=== PATIENT | male | born 1950 | race Caucasian/White ===

== ENCOUNTER 2017-11-02 13:44 | Emergency (ER) | payer MEDICARE, OTHER ==
[2017-11-02] MEDS ORDERED: NS 0.9% 1000 ML* 1,000 ML IV ONE (13:59)
--- NOTE | 2017-11-02 14:35 | RAD ---
Indication: Cough, weakness. 2 views of the chest demonstrate no mediastinal shift. Pacemaker leads are in place. Heart is of normal size. Lung rascon are clear. IMPRESSION: Pacemaker leads are in place. No active cardiopulmonary disease is noted.
--- NOTE | 2017-11-02 14:45 | RAD ---
HISTORY: Weakness, multiple falls COMPARISONS: April 09, 2015 TECHNIQUE: Multiple contiguous axial CT scans were obtained of the head without intravenous contrast. FINDINGS: HEMORRHAGE/INFARCT: There is no hemorrhage or acute infarct. MASSES/SHIFT: There is no mass or shift. EXTRA-AXIAL SPACES: There are no extra-axial fluid collections. SULCI AND VENTRICLES: The sulci and ventricles are normal in size and position for the patient's stated age. CEREBRUM: There are no focal parenchymal abnormalities. BRAINSTEM: There are no focal parenchymal abnormalities. CEREBELLUM: There are no focal parenchymal abnormalities. VESSELS: The vessels are grossly normal. PARANASAL SINUSES: The paranasal sinuses are clear. ORBITS: The orbits are unremarkable. BONES AND SOFT TISSUE: No bone or soft tissue abnormalities are noted. OTHER: None IMPRESSION: NO ACUTE INTRACRANIAL PATHOLOGY.
[2017-11-02 15:12] LABS: ABS Basophils 0 10^3/ul (0-0.2); ABS Eosinophils 0.2 10^3/ul (0-0.6); ABS Monocytes 0.5 10^3/ul (0-0.8); ABS Neutrophils 4.7 10^3/ul (1.5-7.7); ABS Nucleated RBC 0 10^3/ul; Eosinophil % 3.4 % (0-6); Hematocrit 32 % (42-52); Hemoglobin 10.5 g/dl (14.0-18.0); Lymphocyte % 16.1 % (25-47); Mean Corpuscular HGB Conc 33 g/dl (31-36); Mean Corpuscular Hemoglobin 27 pg (27-31); Mean Corpuscular Volume 82 fL (80-94); Nucleated Red Blood Cells % 0.1; Platelet Count 159 10^3/ul (150-450); Red Blood Count 3.88 10^6/ul (4.0-5.4); Red Cell Distribution Width 15 % (10.5-15); White Blood Count 6.5 10^3/ul (3.5-10.8)
[2017-11-02 15:32] LABS: EGFR Non-African American 36.9 (>60)
[2017-11-02] MEDS ORDERED: Tetan/Diph/Pertus SYR(Tdap)* 0.5 ML SYR(BOOSTRIX) use SYR IM ONE (15:52)
[2017-11-02 16:32] LABS: Urine Appearance Clear; Urine Blood Negative (Negative); Urine Color Straw; Urine Ketones Negative (Negative); Urine Protein Negative (Negative); Urine Specific Gravity 1.011 (1.010-1.030); Urine Urobilinogen Negative (Negative)
[2017-11-02 16:53] VITALS: BP 149/78
--- NOTE | 2017-11-02 17:10 | ED ---
Drew Green Tecjoon, scribed for Hank Howard MD on 11/02/17 at 1408 . Adult Trauma - HPI Summary HPI Summary: This patient is a 67 year old male BIBA to [facility] accompanied by with a chief complaint of generalized weakness and mechanical fall [employer]. Patients states that he was in the parking lot and disorganized with his walker. Patient was leaning against a car to maintain balance and went down. Patient denies pain or injury and states that he simply doesnt have a lot of strength against the wind. Patient states that he also fell 2 weeks ago and has cuts on arms and knees. Falls are not unusual to him. Patient states that his arms and legs are otherwise fine and states no injury during fall. Patient denies head trauma. The pain is rated 7/10 in severity. Symptoms aggravated by nothing. Symptoms alleviated by nothing. Patient additionally reports cough. Patient denies headache, chest pain, SOB, abd pain, nausea, dark or bloody stools. - History of Current Complaint Stated Complaint: WEAKNESS Hx Obtained From: Patient Mechanism of Injury: Fall Ambulatory at the Scene: Yes Loss of Consciousness: no loss of consciousness Patient Location: Pedestrian Restraints: None Onset/Duration: Started Hours Ago, Started Weeks Ago, Still Present Onset of Pain: Immediate Current Severity: Moderate Pain Intensity: 7 Pain Scale Used: 0-10 Numeric Aggravating Factor(s): Nothing Alleviating Factor(s): Nothing Associated Signs & Symptoms: Positive: Negative - headache, chest pain, SOB, abd pain, nausea, dark or bloody stools, Other: - cough, weakness - Additional Pertinent History Primary Care Physician: [id number] - Allergy/Home Medications Allergies/Adverse Reactions: Allergies Allergy/AdvReac Type Severity Reaction Status Date / Time lisinopril Allergy Unknown Verified 11/02/17 13:57 Reaction Details metoprolol Allergy Unknown Verified 11/02/17 13:57 Reaction Details clopidogrel AdvReac Severe Made Verified 11/02/17 13:57 opiate effect more intense Sulfa (Sulfonamide AdvReac Rash Verified 11/02/17 13:57 Antibiotics) Home Medications: Home Medications Budesonide/Formote 160/4.5(NF) [Symbicort 160/4.5 (NF)] 2 puff INH BID 11/02/17 [History Confirmed 11/02/17] Cholecalciferol (Vitamin D3) [Vitamin D3] 1,000 unit PO DAILY 11/02/17 [History Confirmed 11/02/17] Codeine Phosphate/Guaifenesin [Cheratussin AC Syrup] 10 ml PO Q4HR PRN 11/02/17 [History Confirmed 11/02/17] Insulin LISPRO* [HumaLOG*] 6 units SUBCUT TID WITH MEALS 11/02/17 [History Confirmed 11/02/17] Iron,Carbonyl [Iron Chews Pediatric] 45 mg PO .THREE TIMES WEEKLY 11/02/17 [ History Confirmed 11/02/17] Magnesium Oxide TAB* [MagOx 400 TAB*] 800 mg PO DAILY 11/02/17 [History Confirmed 11/02/17] Multivitamins/Minerals TAB* [Theragran/minerals TAB*] 1 tab PO DAILY 11/02/17 [ History Confirmed 11/02/17] Pioglitazone TAB* [Actos TAB*] 15 mg PO DAILY 11/02/17 [History Confirmed ] Pregabalin CAP(*) [Lyrica CAP(*)] 50 mg PO TID 11/02/17 [History Confirmed 11/02] Sertraline* [Zoloft*] 25 mg PO DAILY 11/02/17 [History Confirmed 11/02/17] Simvastatin TAB(NF) [Zocor 20 MG (NF)] 20 mg PO DAILY 11/02/17 [History Confirmed 11/02/17] l Gasseri/B Bifidum/B Longum [[employer] [facility]] 1 cap PO DAILY 11/02/17 [ History Confirmed 11/02/17] PMH/Surg Hx/FS Hx/Imm Hx Previously Healthy: No Endocrine/Hematology History: Reports: Hx Diabetes - TYPE 2, Hx Anemia - HX OF Denies: Hx Thyroid Disease Cardiovascular History: Reports: Hx Coronary Artery Disease, Hx Hypercholesterolemia, Hx Hypertension, Hx Pacemaker/ICD - 8/, Hx Peripheral Vascular Disease, Other Cardiovascular Problems/Disorders - BYPASS SURGERY Denies: Hx Aneurysm, Hx Angina, Hx Cardiac Arrest, Hx Cardiomegaly, Hx Congestive Heart Failure, Hx Rheumatic Fever, Hx Valvular Heart Disease Respiratory History: Reports: Hx Asthma, Hx Chronic Bronchitis, Hx Chronic Obstructive Pulmonary Disease (COPD), Hx Lung Cancer - RLL, Hx Pneumonia, Other Respiratory Problems/Disorders - COPD Denies: Hx Pulmonary Edema, Hx Pulmonary Embolism, Hx Seasonal Allergies, Hx Sleep Apnea GI History: Reports: Hx Gastroesophageal Reflux Disease - CONTROL WITH MED Denies: Hx Cirrhosis, Hx Crohn's Disease, Hx Irritable Bowel, Hx Jaundice, Hx Ulcer History: Reports: Hx Acute Renal Failure, Hx Benign Prostatic Hyperplasia, Other Problems/Disorders - CKD Denies: Hx Dialysis, Hx Renal Disease Musculoskeletal History: Reports: Hx Arthritis - RA AND OSTEOARTHRITIS, Hx Rheumatoid Arthritis, Hx Back Problems - siatica, Other Musculoskeletal History - HX SCIATICA Sensory History: Reports: Hx Cataracts, Hx Contacts or Glasses, Other Sensory Impairments - Neuropathy Denies: Hx Eye Injury, Hx Glaucoma, Hx Hearing Aid, Hx Hearing Problem Opthamlomology History: Reports: Hx Cataracts, Hx Contacts or Glasses, Other Sensory Impairments - Neuropathy Denies: Hx Eye Injury, Hx Glaucoma Neurological History: Denies: Hx Dementia, Hx Developmental Delay, Hx Headaches, Hx Migraine, Hx Nerve Disease, Hx Seizures, Hx Spinal Cord Injury, Hx Transient Ischemic Attacks (TIA), Other Neuro Impairments/Disorders Psychiatric History: Reports: Hx Depression Denies: Hx Panic Disorder - Cancer History Cancer Type, Location and Year: R Lung [address] Lindsay - dx and then not present Hx Chemotherapy: No - Surgical History Surgery Procedure, Year, and Place: CABG -5 1994, [place]. Hernia Repair, [facility]. Right foot 4th toe joint replacements,. MULTIPLE TOE AMPUTATIONS, [facility]. 2010 BILAT CATARACT, [facility]. 05/2015 Partial Amputation of Left Foot at [facility], by Dr. Arce. 06/2015 LEFT STUMP REVISION OF LEFT FOOT AMPUTATION, [facility] Hx Anesthesia Reactions: No - Immunization History Date of Tetanus Vaccine: unsure Date of Influenza Vaccine: 2011 Infectious Disease History: No Infectious Disease History: Reports: Hx of Known/Suspected MRSA Denies: Hx Clostridium Difficile, Hx Hepatitis, Hx Human Immunodeficiency Virus (HIV), Hx Shingles, Hx Tuberculosis, Hx Known/Suspected VRE, Hx Known/ Suspected VRSA, History Other Infectious Disease, Traveled Outside the [place] in Last 30 Days - Family History Known Family History: Negative: Hypertension - Social History Lives: With Family Alcohol Use: None Hx Substance Use: No Substance Use Type: Reports: None Substance Use Comment - Amount & Last Used: oxycodone Hx Tobacco Use: Yes - 1995 Smoking Status (MU): Former Smoker Type: Cigarettes Amount Used/How Often: 2 PPD Length of Time of Smoking/Using Tobacco: 20 YEARS Have You Smoked in the Last Year: No Review of Systems Negative: Fever Negative: Chest Pain Positive: Cough. Negative: Shortness Of Breath Gastrointestinal: Negative - dark or bloody stools Negative: Abdominal Pain, Nausea Positive: Other - abrasions to arms and legs Positive: Weakness. Negative: Headache All Other Systems Reviewed And Are Negative: Yes Physical Exam - Summary Physical Exam Summary: Appearance: Mild pallor Skin: Scab/lesion on sternum. Scabs and abrasions on both knee, scab/abrasion on left forearm, none of which are new. Head/face: normal Eyes: EOMI, Sparkle in his eye for cataract lens implant, Pupils are small, 3mm ENT: normal Neck: supple, non-tender Respiratory: wheezing in right lung Cardiovascular: RRR, pulses symmetrical Abdomen: non-tender, soft Bowel Sounds: present Musculoskeletal: normal, strength/ROM intact Neuro: normal, sensory motor intact, A&Ox3, Wink[place] Coma Scale: 15 Triage Information Reviewed: Yes Vital Signs On Initial Exam: Initial Vitals Temp Pulse Resp BP Pulse Ox 97.9 F 96 19 110/57 92 11/02/17 13:54 11/02/17 13:54 11/02/17 13:54 11/02/17 13:54 11/02/17 13:54 Vital Signs Reviewed: Yes Diagnostics - Vital Signs Vital Signs Temp Pulse Resp BP Pulse Ox 11/02/17 13:54 97.9 F 96 19 110/57 92 - Laboratory Lab Results: Lab Results 11/02/17 11/02/17 11/02/17 Range/Units 14:48 14:48 14:48 WBC 6.5 (3.5-10.8) 10^3/ul RBC 3.88 L (4.0-5.4) 10^6/ul Hgb 10.5 L (14.0-18.0) g/dl Hct 32 L (42-52) % MCV 82 (80-94) fL MCH 27 (27-31) pg MCHC 33 (31-36) g/dl RDW 15 (10.5-15) % Plt Count 159 (150-450) 10^3/ul MPV 7.0 L (7.4-10.4) um3 Neut % (Auto) 72.7 (38-83) % Lymph % (Auto) 16.1 L (25-47) % Gordon % (Auto) 7.1 H (0-7) % Eos % (Auto) 3.4 (0-6) % Baso % (Auto) 0.7 (0-2) % Absolute Neuts (auto) 4.7 (1.5-7.7) 10^3/ul Absolute Lymphs (auto) 1.0 (1.0-4.8) 10^3/ul Absolute Monos (auto) 0.5 (0-0.8) 10^3/ul Absolute Eos (auto) 0.2 (0-0.6) 10^3/ul Absolute Basos (auto) 0 (0-0.2) 10^3/ul Absolute Nucleated RBC 0 10^3/ul Nucleated RBC % 0.1 INR (Anticoag Therapy) 1.00 (0.77-1.02) APTT 32.4 (26.0-36.3) seconds Sodium 137 L (139-145) mmol/L Potassium 4.8 (3.5-5.0) mmol/L Chloride 100 L (101-111) mmol/L Carbon Dioxide 31 (22-32) mmol/L Anion Gap 6 (2-11) mmol/L BUN 41 H (6-24) mg/dL Creatinine 1.84 H (0.67-1.17) mg/dL Est GFR ( Amer) 47.4 (>60) Est GFR (Non-Af Amer) 36.9 (>60) BUN/Creatinine Ratio 22.3 H (8-20) Glucose 202 H (70-100) mg/dL Lactic Acid (0.5-2.0) mmol/L Calcium 9.6 (8.6-10.3) mg/dL Total Bilirubin 0.30 (0.2-1.0) mg/dL AST 13 (13-39) U/L ALT 8 (7-52) U/L Alkaline Phosphatase 53 (34-104) U/L Troponin I 0.01 (<0.04) ng/mL Total Protein 6.9 (6.4-8.9) g/dL Albumin 3.6 (3.2-5.2) g/dL Globulin 3.3 (2-4) g/dL Albumin/Globulin Ratio 1.1 (1-3) Urine Color Urine Appearance Urine pH (5-9) Ur Specific [place] (1.010-1.030) Urine Protein (Negative) Urine Ketones (Negative) Urine Blood (Negative) Urine Nitrate (Negative) Urine Bilirubin (Negative) Urine Urobilinogen (Negative) Ur Leukocyte Esterase (Negative) Urine Glucose (Negative) Influenza A (Rapid) (Negative) Influenza B (Rapid) (Negative) 11/02/17 11/02/17 11/02/17 Range/Units 14:48 15:24 16:08 WBC (3.5-10.8) 10^3/ul RBC (4.0-5.4) 10^6/ul Hgb (14.0-18.0) g/dl Hct (42-52) % MCV (80-94) fL MCH (27-31) pg MCHC (31-36) g/dl RDW (10.5-15) % Plt Count (150-450) 10^3/ul MPV (7.4-10.4) um3 Neut % (Auto) (38-83) % Lymph % (Auto) (25-47) % Gordon % (Auto) (0-7) % Eos % (Auto) (0-6) % Baso % (Auto) (0-2) % Absolute Neuts (auto) (1.5-7.7) 10^3/ul Absolute Lymphs (auto) (1.0-4.8) 10^3/ul Absolute Monos (auto) (0-0.8) 10^3/ul Absolute Eos (auto) (0-0.6) 10^3/ul Absolute Basos (auto) (0-0.2) 10^3/ul Absolute Nucleated RBC 10^3/ul Nucleated RBC % INR (Anticoag Therapy) (0.77-1.02) APTT (26.0-36.3) seconds Sodium (139-145) mmol/L Potassium (3.5-5.0) mmol/L Chloride (101-111) mmol/L Carbon Dioxide (22-32) mmol/L Anion Gap (2-11) mmol/L BUN (6-24) mg/dL Creatinine (0.67-1.17) mg/dL Est GFR ( Amer) (>60) Est GFR (Non-Af Amer) (>60) BUN/Creatinine Ratio (8-20) Glucose (70-100) mg/dL Lactic Acid 1.9 (0.5-2.0) mmol/L Calcium (8.6-10.3) mg/dL Total Bilirubin (0.2-1.0) mg/dL AST (13-39) U/L ALT (7-52) U/L Alkaline Phosphatase (34-104) U/L Troponin I (<0.04) ng/mL Total Protein (6.4-8.9) g/dL Albumin (3.2-5.2) g/dL Globulin (2-4) g/dL Albumin/Globulin Ratio (1-3) Urine Color Straw Urine Appearance Clear Urine pH 5.0 (5-9) Ur Specific [place] 1.011 (1.010-1.030) Urine Protein Negative (Negative) Urine Ketones Negative (Negative) Urine Blood Negative (Negative) Urine Nitrate Negative (Negative) Urine Bilirubin Negative (Negative) Urine Urobilinogen Negative (Negative) Ur Leukocyte Esterase Negative (Negative) Urine Glucose Negative (Negative) Influenza A (Rapid) Negative (Negative) Influenza B (Rapid) Negative (Negative) Result Diagrams: 11/02/17 14:48 11/02/17 14:48 Lab Statement: Any lab studies that have been ordered have been reviewed, and results considered in the medical decision making process. - Radiology CXR Xray Interpretation: No Acute Changes - CXR reveals, per radiologist, IMPRESSION : Pacemaker leads are in place. No active cardiopulmonary disease is noted. ED physician has reviewed this radiology report. Radiology Interpretation Completed By: Radiologist - CT CT Brain CT Interpretation: No Acute Changes - CT Brain reveals, per radiologist, NO ACUTE INTRACRANIAL PATHOLOGY. ED physician has reviewed this radiology report. CT Interpretation Completed By: Radiologist Adult Trauma Course/Dx - Course Course Of Treatment: This patient is a 67 year old male BIBA to [facility] accompanied by with a chief complaint of generalized weakness and mechanical fall [employer]. Patients states that he was in the parking lot and disorganized with his walker. Patient was leaning against a car to maintain balance and went down. An EKG, taken 1407, reveals ventricular pacing (94 BPM), left axis, nonspecific ST. CXR reveals, per radiologist, IMPRESSION: Pacemaker leads are in place. No active cardiopulmonary disease is noted. ED physician has reviewed this radiology report.CT Brain reveals, per radiologist, NO ACUTE INTRACRANIAL PATHOLOGY. ED physician has reviewed this radiology report. Bloodwork Obtained. Urinalysis Obtained. In the ED course the patient was given Tdap. Patient will be discharged with a dx of chronic renal insufficiency, generalized weakness, and fall. Patient is advised to follow up with PCP in 3 days. The patient is agreeable with this plan. Pt with gen weakness for some time. ? some worsening as of late with changes to his chronic pain/opiate regimen. No acute worsening here. Hydrated. At baseline. Chronicly unsteady. Will have f/u with pain mgmt for reeval of his regimen. - Diagnoses Differential Diagnosis/HQI/PQRI: Positive: Other - dehydration, anemia, over medication, intracranial hemorrhage Provider Diagnoses: Chronic renal insufficiency, Generalized weakness, Fall Discharge - Sign-Out/Discharge Documenting (check all that apply): Discharge - Discharge Plan Condition: Good Disposition: HOME Patient Education Materials: Weakness (ED) Referrals: Deonte Masters MD [Primary Care Provider] - Additional Instructions: discuss pain managment with Dr Low. Return if worse, new symptoms, or other concerns. Talk with your doctor about increasing the amount of PT or health aide you get. - Billing Disposition and Condition Condition: GOOD Disposition: HOME The documentation as recorded by the Drew kelly Tecjoon accurately reflects the service I personally performed and the decisions made by me, Hank Howard MD.
== END 2017-11-02 17:13 | disposition home or self-care (01) ==
LOC: ED 13:44
DX: R53.1 Weakness (principal); N28.9 Disorder of kidney and ureter, unspecified; W01.0XXA Fall on same level from slipping, tripping and stumbling without subsequent striking against object, initial encounter; Y92.9 Unspecified place or not applicable; Z88.8 Allergy status to other drugs, medicaments and biological substances; E11.9 Type 2 diabetes mellitus without complications; I25.10 Atherosclerotic heart disease of native coronary artery without angina pectoris; E78.00 Pure hypercholesterolemia, unspecified; J44.9 Chronic obstructive pulmonary disease, unspecified; J45.909 Unspecified asthma, uncomplicated; K31.9 Disease of stomach and duodenum, unspecified; Z87.891 Personal history of nicotine dependence; R94.31 Abnormal electrocardiogram [ECG] [EKG]; Z23 Encounter for immunization; D64.9 Anemia, unspecified
CPT/HCPCS: 36415; 70450; 71046; 80053; 81003; 83605; 84484; 85025; 85610; 85730; 87040; 87502; 90471; 90715; 93005; 96360; 99282

== ENCOUNTER 2019-02-28 07:39 | Emergency (ER) | payer MEDICARE, OTHER ==
--- NOTE | 2019-02-28 08:05 | ED ---
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 Per the EMS, the pt has been falling daily for the past 3 days. He states that his knees gave out and he fell. He notes that lately he has been having problems with his knees. He denies SOB more than usual with hx of COPD. Pain is currently rated 7/10 in severity. - History of Current Complaint Stated Complaint: WEAKNESS PER EMS Time Seen by Provider: 02/28/19 07:43 Hx Obtained From: Patient, EMS Mechanism of Injury: Fall Onset/Duration: Started Hours Ago, Still Present Onset Severity: Moderate Current Severity: Moderate Pain Intensity: 7 Pain Scale Used: 0-10 Numeric Aggravating Factor(s): Nothing Alleviating Factor(s): Nothing Associated Signs & Symptoms: Positive: Numbness/Weakness - Positive - weakness in knees. Negative: SOB - Additional Pertinent History Primary Care Physician: [id number] - Allergy/Home Medications Allergies/Adverse Reactions: Allergies Allergy/AdvReac Type Severity Reaction Status Date / Time lisinopril Allergy Unknown Verified 02/13/19 11:17 Reaction Details metoprolol Allergy Unknown Verified 02/13/19 11:17 Reaction Details clopidogrel AdvReac Severe Made Verified 02/13/19 11:17 opiate effect more intense Sulfa (Sulfonamide AdvReac Rash Verified 02/13/19 11:17 Antibiotics) PMH/Surg Hx/FS Hx/Imm Hx Endocrine/Hematology History: Reports: Hx Diabetes - TYPE 2, Hx Anemia - HX OF Denies: Hx Thyroid Disease Cardiovascular History: Reports: Hx Coronary Artery Disease, Hx Hypercholesterolemia, Hx Hypertension, Hx Pacemaker/ICD - 8/29/16, Hx Peripheral Vascular Disease, Other Cardiovascular Problems/Disorders - BYPASS SURGERY Denies: Hx Aneurysm, Hx Angina, Hx Cardiac Arrest, Hx Cardiomegaly, Hx Congestive Heart Failure, Hx Rheumatic Fever, Hx Valvular Heart Disease Respiratory History: Reports: Hx Asthma, Hx Chronic Bronchitis, Hx Chronic Obstructive Pulmonary Disease (COPD), Hx Lung Cancer - RLL, Hx Pneumonia, Other Respiratory Problems/Disorders - COPD Denies: Hx Pulmonary Edema, Hx Pulmonary Embolism, Hx Seasonal Allergies, Hx Sleep Apnea GI History: Reports: Hx Gastroesophageal Reflux Disease - CONTROL WITH MED Denies: Hx Cirrhosis, Hx Crohn's Disease, Hx Irritable Bowel, Hx Jaundice, Hx Ulcer History: Reports: Hx Acute Renal Failure, Hx Benign Prostatic Hyperplasia, Other Problems/Disorders - CKD Denies: Hx Dialysis, Hx Renal Disease Musculoskeletal History: Reports: Hx Arthritis - RA AND OSTEOARTHRITIS, Hx Rheumatoid Arthritis, Hx Back Problems - siatica, Other Musculoskeletal History - HX SCIATICA Sensory History: Reports: Hx Cataracts, Hx Contacts or Glasses, Other Sensory Impairments - Neuropathy Denies: Hx Eye Injury, Hx Glaucoma, Hx Hearing Aid, Hx Hearing Problem Opthamlomology History: Reports: Hx Cataracts, Hx Contacts or Glasses, Other Sensory Impairments - Neuropathy Denies: Hx Eye Injury, Hx Glaucoma Neurological History: Denies: Hx Dementia, Hx Developmental Delay, Hx Headaches, Hx Migraine, Hx Nerve Disease, Hx Seizures, Hx Spinal Cord Injury, Hx Transient Ischemic Attacks (TIA), Other Neuro Impairments/Disorders Psychiatric History: Reports: Hx Depression Denies: Hx Panic Disorder - Cancer History Cancer Type, Location and Year: R Lung [address] Lindsay - dx and then not present Hx Chemotherapy: No - Surgical History Surgery Procedure, Year, and Place: CABG -5 1994, STRONG. Hernia Repair, [facility]. Right foot 4th toe joint replacements,. MULTIPLE TOE AMPUTATIONS, [facility]. 2010 BILAT CATARACT, [facility]. 05/2015 Partial Amputation of Left Foot at [facility], by Dr. Arce. 06/2015 LEFT STUMP REVISION OF LEFT FOOT AMPUTATION, [facility] Hx Anesthesia Reactions: No - Immunization History Date of Tetanus Vaccine: unsure Date of Influenza Vaccine: 2011 Infectious Disease History: Reports: Hx of Known/Suspected MRSA Denies: Hx Clostridium Difficile, Hx Hepatitis, Hx Human Immunodeficiency Virus (HIV), Hx Shingles, Hx Tuberculosis, Hx Known/Suspected VRE, Hx Known/ Suspected VRSA, History Other Infectious Disease - Family History Known Family History: Negative: Hypertension - Social History Alcohol Use: None Hx Substance Use: No Substance Use Type: Reports: None Substance Use Comment - Amount & Last Used: oxycodone Hx Tobacco Use: Yes - 1995 Smoking Status (MU): Former Smoker Type: Cigarettes Amount Used/How Often: 2 PPD Length of Time of Smoking/Using Tobacco: 20 YEARS Have You Smoked in the Last Year: No Review of Systems Constitutional: Negative Positive: Fever Negative: Shortness Of Breath Positive: Weakness All Other Systems Reviewed And Are Negative: Yes Physical Exam - Summary Physical Exam Summary: Appearance: Chronically ill-appearing elderly male in stretcher with mild tachypnea, Well-nourished, Skin: Warm, dry, no obvious rash Eyes: sclera anicteric, no conjunctival pallor ENT: mucous membranes moist, pharynx appears normal Neck: Supple, nontender Respiratory: Crackles bilaterally, signs of mild tachypnea Cardiovascular: Normal S1, S2. No murmurs. Normal distal pulses in tibial and radial bilaterally. Abdomen: Soft, nontender, normal active bowel sounds present, mild kidney unnoted Musculoskeletal: Strength/ROM Intact, left sided trans-metatarsal amputation, no significant edema Neurological: A&Ox3, awake and alert, mentation is normal, speech is fluent and appropriate Psychiatric: affect is normal, does not appear anxious or depressed Triage Information Reviewed: Yes Vital Signs Reviewed: Yes Diagnostics - Laboratory Result Diagrams: 02/28/19 08:13 02/28/19 08:13 Lab Statement: Any lab studies that have been ordered have been reviewed, and results considered in the medical decision making process. - Radiology CXR Radiology Interpretation Completed By: Radiologist Summary of Radiographic Findings: IMPRESSION: Trace airspace opacification the right lower lung zone, in the setting of poor. inspiration, is likely direct marketing representative of subsegmental atelectasis. If there is strong. suspicion for pneumonia, repeat radiograph with better inspiration could be performed. ED Physician has reviewed this report. - EKG 0801 Cardiac Rate: Other Rate - Paced @ 79 BPM Summary of EKG Findings: Atrial-sensed ventricular-paced rhythm @ 79 BPM... ventricular pacing tracks p-waves. No further analysis attempted due to paced rhythm. Re-Evaluation - Re-Evaluation First Eval Re-Evaluation Time: 12:00 Comment: I discussed results and discharge home with the patient. 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 Per the EMS, the pt has been falling daily for the past 3 days. He states that his knees gave out and he fell. He notes that lately he has been having problems with his knees. He denies SOB more than usual with hx of COPD. The physical exam was only notable for left sided trans- metatarsal amputation and crackles bilaterally with mild tachypnea. Test results normal except for RBC @ 3.74, Hgb @ 10.1, Hct @ 31, Plt Count @ 132, absolute lumpths @ 0.9, BUN @ 51, Creatinine 1.97, BUN/Creatinine @ 25.9, Glucose @ 156. An EKG reveals atrial-sensed ventricular-paced rhythm @ 79 BPM, ventricular pacing tracks p-waves, no further analysis attempted due to paced rhythm. A CXR reveals: Trace airspace opacification the right lower lung zone, in the setting of poor inspiration, is likely direct marketing representative of subsegmental atelectasis. If there is strong suspicion for pneumonia, repeat radiograph with better inspiration could be performed. The pt was diagnosed with weakness, discharged home, and instructed to follow up with PCP within 3 days. The pt is stable and agreeable with this plan. - Diagnoses Provider Diagnoses: Weakness Discharge - Sign-Out/Discharge Documenting (check all that apply): Patient Departure - discharge Patient Received Moderate/Deep Sedation with Procedure: No - Discharge Plan Condition: Good Disposition: HOME Patient Education Materials: Weakness (ED) Referrals: Deonte Masters MD [Primary Care Provider] - If Needed Additional Instructions: RETURN TO THE EMERGENCY DEPARTMENT FOR ANY NEW OR WORSENING SYMPTOMS. - Billing Disposition and Condition Condition: GOOD Disposition: Home - Attestation Statements Document Initiated by Ashley: Yes Documenting Scribe: Babak Garcia Provider For Whom Ashley is Documenting (Include Credential): Emigdio Willett MD Scribe Attestation: Babak Green, scribed for Emigdio Willett MD on 03/02/19 at 0433. Scribe Documentation Reviewed: Yes Provider Attestation: The documentation as recorded by the davideBabak accurately reflects the service I personally performed and the decisions made by me, Emigdio Willett MD Status of Scribe Document: Viewed
[2019-02-28 08:25] LABS: ABS Eosinophils 0.2 10^3/ul (0-0.6); ABS Lymphocytes 0.9 10^3/ul (1.0-4.8); ABS Monocytes 0.4 10^3/ul (0-0.8); ABS Neutrophils 3.5 10^3/ul (1.5-7.7); Eosinophil % 3.4 %; Hematocrit 31 % (42-52); Hemoglobin 10.1 g/dL (14.0-18.0); Lymphocyte % 18.8 %; Mean Corpuscular HGB Conc 33 g/dL (31-36); Mean Corpuscular Hemoglobin 27 pg (27-31); Mean Corpuscular Volume 82 fL (80-94); Mean Platelet Volume 7.4 fL (7.4-10.4); Nucleated Red Blood Cells % 0.1; Platelet Count 132 10^3/uL (150-450); Red Blood Count 3.74 10^6 /uL (4.18-5.48); Red Cell Distribution Width 15 % (10-15)
[2019-02-28 08:42] LABS: Troponin I 0.01 ng/mL (<0.04)
[2019-02-28 08:44] LABS: Albumin 3.6 g/dL (3.2-5.2); Albumin/Globulin Ratio 1.1 (1-3); BUN/Creatinine Ratio 25.9 (8-20); Calcium 9.4 mg/dL (8.6-10.3); EGFR Non-African American 33.9 (>60); Globulin 3.2 g/dL (2-4); Potassium 4.6 mmol/L (3.5-5.0); Total Bilirubin 0.2 mg/dL (0.2-1.0); Total Protein 6.8 g/dL (6.4-8.9)
[2019-02-28 11:44] LABS: Urine Appearance Clear; Urine Bilirubin Negative (Negative); Urine Blood Negative (Negative); Urine Color Yellow; Urine Glucose Negative (Negative); Urine Ketones Negative (Negative); Urine Nitrite Negative (Negative); Urine Protein Negative (Negative); Urine Specific Gravity 1.018 (1.010-1.030); Urine Urobilinogen Negative (Negative)
[2019-02-28 12:40] VITALS: BP 170/82
== END 2019-02-28 12:40 | disposition home or self-care (01) ==
LOC: ED 07:39
DX: R53.1 Weakness (principal); Z88.2 Allergy status to sulfonamides; Z88.8 Allergy status to other drugs, medicaments and biological substances; D64.9 Anemia, unspecified; I25.10 Atherosclerotic heart disease of native coronary artery without angina pectoris; Z95.1 Presence of aortocoronary bypass graft; Z95.810 Presence of automatic (implantable) cardiac defibrillator; J44.9 Chronic obstructive pulmonary disease, unspecified; E11.22 Type 2 diabetes mellitus with diabetic chronic kidney disease; I12.9 Hypertensive chronic kidney disease with stage 1 through stage 4 chronic kidney disease, or unspecified chronic kidney disease; N18.9 Chronic kidney disease, unspecified; Z87.891 Personal history of nicotine dependence; Z79.899 Other long term (current) drug therapy
CPT/HCPCS: 36415; 71046; 80053; 81003; 83605; 83880; 84484; 85025; 93005; 99284

== ENCOUNTER 2019-02-28 16:22 | Inpatient (IN) | payer MEDICARE, OTHER ==
--- NOTE | 2019-02-28 17:34 | ED ---
Syncope/Near Syncope - HPI Summary HPI Summary: The pt is a 69 yr old male presenting to [facility] c/o syncopal episode. He was here earlier today for syncope but was brought back by EMS for a complaint of being worse than previous visit, not acting right, increased facial droop from previous visit, per the triage. The states he was not able to get out of his wheel chair, but he is able to respond and states that he feels good. notes that the patient took all of his morning and 1200 medications at 1200 , which included 20mg total of Oxycodone. He has a Hx of syncopal episodes. - History Of Current Complaint Chief Complaint: EDGeneral Time Seen by Provider: 02/28/19 16:33 Hx Obtained From: Patient, Family/Telegraph Operator, EMS Onset/Duration: Sudden Onset, Lasting Hours Timing: Intermittent Episode Lasting - undetermined period of time Associated Head Trauma: No Aggravating Factor(s): Nothing Alleviating Factor(s): Nothing Associated Signs And Symptoms: Weakness, Other - positive - LOC - Allergies/Home Medications Allergies/Adverse Reactions: Allergies Allergy/AdvReac Type Severity Reaction Status Date / Time lisinopril Allergy Unknown Verified 02/13/19 11:17 Reaction Details metoprolol Allergy Unknown Verified 02/13/19 11:17 Reaction Details clopidogrel AdvReac Severe Made Verified 02/13/19 11:17 opiate effect more intense Sulfa (Sulfonamide AdvReac Rash Verified 02/13/19 11:17 Antibiotics) Home Medications: Home Medications Minocycline (NF) 100 mg PO BID 03/01/19 [History Confirmed 03/01/19] PMH/Surg Hx/FS Hx/Imm Hx Endocrine/Hematology History: Reports: Hx Diabetes - TYPE 2, Hx Anemia - HX OF Denies: Hx Thyroid Disease Cardiovascular History: Reports: Hx Coronary Artery Disease, Hx Hypercholesterolemia, Hx Hypertension, Hx Pacemaker/ICD - 8//16, Hx Peripheral Vascular Disease, Other Cardiovascular Problems/Disorders - BYPASS SURGERY Denies: Hx Aneurysm, Hx Angina, Hx Cardiac Arrest, Hx Cardiomegaly, Hx Congestive Heart Failure, Hx Rheumatic Fever, Hx Valvular Heart Disease Respiratory History: Reports: Hx Asthma, Hx Chronic Bronchitis, Hx Chronic Obstructive Pulmonary Disease (COPD), Hx Lung Cancer - RLL, Hx Pneumonia, Other Respiratory Problems/Disorders - COPD Denies: Hx Pulmonary Edema, Hx Pulmonary Embolism, Hx Seasonal Allergies, Hx Sleep Apnea GI History: Reports: Hx Gastroesophageal Reflux Disease - CONTROL WITH MED Denies: Hx Cirrhosis, Hx Crohn's Disease, Hx Irritable Bowel, Hx Jaundice, Hx Ulcer History: Reports: Hx Acute Renal Failure, Hx Benign Prostatic Hyperplasia, Other Problems/Disorders - CKD Denies: Hx Dialysis, Hx Renal Disease Musculoskeletal History: Reports: Hx Arthritis - RA AND OSTEOARTHRITIS, Hx Rheumatoid Arthritis, Hx Back Problems - siatica, Other Musculoskeletal History - HX SCIATICA Sensory History: Reports: Hx Cataracts, Hx Contacts or Glasses, Other Sensory Impairments - Neuropathy Denies: Hx Eye Injury, Hx Glaucoma, Hx Hearing Aid, Hx Hearing Problem Opthamlomology History: Reports: Hx Cataracts, Hx Contacts or Glasses, Other Sensory Impairments - Neuropathy Denies: Hx Eye Injury, Hx Glaucoma Neurological History: Denies: Hx Dementia, Hx Developmental Delay, Hx Headaches, Hx Migraine, Hx Nerve Disease, Hx Seizures, Hx Spinal Cord Injury, Hx Transient Ischemic Attacks (TIA), Other Neuro Impairments/Disorders Psychiatric History: Reports: Hx Depression Denies: Hx Panic Disorder - Cancer History Cancer Type, Location and Year: R Lung [address] Lindsay - dx and then not present Hx Chemotherapy: No - Surgical History Surgery Procedure, Year, and Place: CABG -5 1994, STRONG. Hernia Repair, [facility]. Right foot 4th toe joint replacements,. MULTIPLE TOE AMPUTATIONS, [facility]. 2010 BILAT CATARACT, [facility]. 05/2015 Partial Amputation of Left Foot at [facility], by Dr. Arce. 06/2015 LEFT STUMP REVISION OF LEFT FOOT AMPUTATION, [facility] Hx Anesthesia Reactions: No - Immunization History Date of Tetanus Vaccine: unsure Date of Influenza Vaccine: 2011 Infectious Disease History: No Infectious Disease History: Reports: Hx of Known/Suspected MRSA Denies: Hx Clostridium Difficile, Hx Hepatitis, Hx Human Immunodeficiency Virus (HIV), Hx Shingles, Hx Tuberculosis, Hx Known/Suspected VRE, Hx Known/ Suspected VRSA, History Other Infectious Disease, Traveled Outside the [place] in Last 30 Days - Family History Known Family History: Negative: Hypertension - Social History Alcohol Use: None Hx Substance Use: No Substance Use Type: Reports: Other Substance Use Comment - Amount & Last Used: Prescribed - oxycodone Hx Tobacco Use: Yes - 1995 Smoking Status (MU): Former Smoker Type: Cigarettes Amount Used/How Often: 2 PPD Length of Time of Smoking/Using Tobacco: 20 YEARS Have You Smoked in the Last Year: No Review of Systems Positive: Other - lethargic Positive: Weakness, Syncope - with LOC All Other Systems Reviewed And Are Negative: Yes Physical Exam - Summary Physical Exam Summary: Appearance: Lethargic-appearing male who arouses to voice, Well-nourished, lying in bed comfortably Skin: Warm, dry, no obvious rash Eyes: sclera anicteric, no conjunctival pallor ENT: mucous membranes moist, pharynx appears normal Neck: Supple, nontender Respiratory: Clear to auscultation, no signs of respiratory distress Cardiovascular: Normal S1, S2. No murmurs. Normal distal pulses in tibial and radial bilaterally. Abdomen: Soft, nontender, normal active bowel sounds present Musculoskeletal: Normal, Strength/ROM Intact Neurological: A&Ox3, awake and alert, mentation is normal, speech is fluent and appropriate, GCS: 15 Psychiatric: affect is normal, does not appear anxious or depressed Triage Information Reviewed: Yes Vital Signs On Initial Exam: Initial Vitals Temp Pulse Resp BP Pulse Ox 98.1 F 65 19 107/63 97 02/28/19 16:26 02/28/19 16:26 02/28/19 16:26 02/28/19 16:26 02/28/19 16:26 Vital Signs Reviewed: Yes - Cesar Coma Scale Best Eye Response: 4 - Spontaneous Best Motor Response: 6 - Obeys Commands Best Verbal Response: 5 - Oriented Coma Scale Total: 15 Diagnostics - Vital Signs Vital Signs Temp Pulse Resp BP Pulse Ox 02/28/19 16:40 22 131/51 02/28/19 16:39 23 02/28/19 16:26 98.1 F 65 19 107/63 97 - Laboratory Result Diagrams: 03/01/19 05:20 03/01/19 05:20 Lab Statement: Any lab studies that have been ordered have been reviewed, and results considered in the medical decision making process. - CT Brain CT CT Interpretation Completed By: Radiologist Summary of CT Findings: IMPRESSION: 1. Posterior scalp contusion with an intact subjacent calvarium. 2. No acute intracranial abnormality. 3. Mild cerebral volume loss. ED Physician has reviewed this report. - EKG 1646 Cardiac Rate: Other Rate - Paced @ 135 Summary of EKG Findings: Paced rhythm @ 135. A-V dual-paced complexes w/ some inhibition... other complexes also detected. Re-Evaluation - Re-Evaluation First Eval Re-Evaluation Time: 18:00 Comment: lab results discussed. Course/Dx Course Of Treatment: The pt is a 69 yr old male presenting to [facility] c/o syncopal episode. He was here earlier today for syncope but was brought back by EMS for a complaint of being worse than previous visit, not acting right, increased facial droop from previous visit, per the triage. The states he was not able to get out of his wheel chair, but he is able to respond and states that he feels good. notes that the patient took all of his morning and 1200 medications at 1200, which included 20mg total of Oxycodone. He has a Hx of syncopal episodes. The physical exam is only notable for lethargic appearing man who does arouse to voice. Test results normal except for VBC pCO2 @ 61, VBG pO2 @ 51, VBG HCO3 @ 31.3, VBG O2 Saturation @ 86.2, VBG Base Excess @ 8.7, and Troponin @ 0.04. A brain CT reveals: 1. Posterior scalp contusion with an intact subjacent calvarium. 2. No acute intracranial abnormality. 3. Mild cerebral volume loss. An EKG reveals paced rhythm @ 135. A-V dual-paced complexes w/ some inhibition... other complexes also detected. Pt will be signed out to Dr. Siegel at the 02/28/191899 shift change pending improvement and disposition. - Diagnoses Provider Diagnoses: Lethargy, Right lower lobe pneumonia, Renal insufficiency Discharge - Sign-Out/Discharge Documenting (check all that apply): Sign-Out Patient Signing out patient TO: Debora Siegel - Pt will be signed out to Dr. Siegel at the 02/28/191899 shift change pending improvement and disposition. Patient Received Moderate/Deep Sedation with Procedure: No - Discharge Plan Condition: Fair Disposition: ADMITTED TO [facility] - Billing Disposition and Condition Condition: FAIR Disposition: Admitted to [facility] - Attestation Statements Document Initiated by Scribe: Yes Documenting Scribe: Babak Garcia Provider For Whom Scribe is Documenting (Include Credential): Brennon Beal Scribloulou Attestation: IBabak, scribed for Brennon Beal on 03/02/19 at 0443. Scribe Documentation Reviewed: Yes Provider Attestation: The documentation as recorded by the scribe, Babak Garcia accurately reflects the service I personally performed and the decisions made by me, Brennon Beal Status of Scribe Document: Viewed
[2019-02-28 18:21] LABS: Troponin I 0.04 ng/mL (<0.04)
--- NOTE | 2019-02-28 19:18 | ED ---
Progress - Progress Note Progress Note: This patient was signed out from Dr. Willett to Dr. Siegel at shift change at 1900 on 02/28/19, pending disposition, awaiting medical clearance/improvement. Pt was sedated, intubated, and given central line. The patient will be admitted with Dx of lethargy, right lower lobe pneumonia, renal insufficiency. - Results/Orders Results/Orders: CXR reveals, per ED physician, AT tube tip at level of clavicle, IJ in place. IJ tip at the distal SVC, bilateral venous congestion. Pending official radiology report. Chest/Abdomen/Pelvis CT reveals, per radiologist, IMPRESSION: 2 mm nodules in the right lung apex, stable. Follow up as clinically indicated. Increased interstitial markings in bilateral lungs slightly more prominent than prior exam. Small right perihilar density extending into the inferior right lower lobe may represent developing pneumonia in the setting of fever. No evidence of pulmonary embolism. ED physician review this radiology report. Re-Evaluation - Re-Evaluation First Eval Re-Evaluation Time: 19:33 Comment: Had conversation with , pt takes multiple pain meds, short and long acting. Physical Examination: Hypoventilation, lethargic, respiratory rate 10, pinpoint pupil consistent with narcotic overdose. Pt will be given narcan. Second Eval Re-Evaluation Time: 20:05 Comment: Checked in on pt condition. Third Eval Re-Evaluation Time: 21:41 Comment: Pt will be intubated and central line will be placed. Patient's signed the consent forms. Course/Dx - Course Course Of Treatment: This patient was signed out from Dr. Willett awaiting medical clearance/improvement. Re-evaluation reveals pt takes multiple pain meds , and Physical Examination: Hypoventilation, lethargic, respiratory rate 10, pinpoint pupil consistent with narcotic overdose. Pt will be given narcan. The pt showed no improvement. Pt was sedated, intubated, and given a central line. CXR reveals, per ED physcian AT tube tip at level of clavicle, IJ in place. IJ tip at the distal SVC, bilateral venous congestion. Pending official radiology report.Chest/Abdomen/Pelvis CT reveals, per radiologist,. IMPRESSION: 2 mm nodules in the right lung apex, stable. Follow up as clinically indicated. Increased interstitial markings in bilateral lungs slightly more prominent than prior exam. Small right perihilar density extending into the inferior right lower lobe may represent developing pneumonia in the setting of fever. No evidence of pulmonary embolism. Discussed case with Dr. Prado who accepts pt for admission. Pt will be admitted. - Diagnoses Provider Diagnoses: Lethargy, Right lower lobe pneumonia, Renal insufficiency - Provider Notifications Discussed Care Of Patient With: Nathalie Prado Time Discussed With Above Provider: 22:50 Instructed by Provider To: Other - Discussed pt case with Dr. Prado, who accepts pt for admission. Discharge - Sign-Out/Discharge Documenting (check all that apply): Patient Departure - Admit Patient Received Moderate/Deep Sedation with Procedure: No - Discharge Plan Condition: Fair Disposition: ADMITTED TO [facility] Referrals: Deonte Masters MD [Primary Care Provider] - - Attestation Statements Document Initiated by Scribe: Yes Documenting Scribe: Kena Dean Provider For Whom Scribe is Documenting (Include Credential): Dr. Debora Siegel MD Scribe Attestation: Kena Green scribed for Dr. Debora Siegel MD on 02/28/19 at 2303. Status of Scribe Document: Ready Procedures - Central Line Central Line Lumen: triple Central Line Procedure: betadine prep, sterile drapes applied, sterile dressing applied Central Line Postion: internal jugular (R) Anesthesia: pt is intubated and sedated Complications: none Central Line Post Position: sutured - Intubation Time of Intubation: 10:01 - Sedation : etomidate Intubation Method: orotracheal Tube Size (cm): 8.0 Medications: Succinylcholine Breath Sounds after Intubation: equal Intubation Complications: no complications Post Intubation Xray: Yes
[2019-02-28] MEDS ORDERED: Naloxone* 0.4 MG/ML 1 ML VIAL IV PUSH ONE ×2 (19:37→20:12)
[2019-02-28] MEDS ORDERED: NS 0.9% 1000 ML** 1,000 ML IV ONE (20:01)
[2019-02-28] MEDS ORDERED: Albuterol/Ipratropium NEB.SOL* Albuterol 2.5 MG/Ipratropium 0.5 MG 3 ML INH ONE (20:02)
[2019-02-28] MEDS ORDERED: methylPREDNISolone 125 MG* 2 ML VIAL IV ONE (20:02)
[2019-02-28] MEDS ORDERED: Albuterol 2.5 MG/3 ML NEB.SOL* (0.083%) INH ONE (20:32)
[2019-02-28] MEDS: Albuterol 2.5 MG/3 ML NEB.SOL* (0.083%) INH SCH ×2 (20:33→20:48)
[2019-02-28] MEDS ORDERED: NS 0.9% 1000 ML** 1,000 ML IV.FLUID IV ONE (20:36)
[2019-02-28] MEDS ORDERED: Acetaminophen SUPP* 325 MG SUPP PR ONE (20:37)
[2019-02-28] MEDS ORDERED: Piperacillin/Tazobac ADVAN(*) 3.375 GM in NS 0.9% 100 ML* 100 ML IVPB ONE (20:38)
[2019-02-28] MEDS ORDERED: Vancomycin(*) 1,000 MG in NS 0.9% 250 ML* 250 ML IVPB ONE (20:38)
[2019-02-28] MEDS ORDERED: Iodixanol* (CONTRAST) 320 MG/ML 100 ML SDV IV ONE (20:56)
[2019-02-28 21:00] LABS: Urine Appearance Clear; Urine Bacteria Absent (Absent); Urine Bilirubin Negative (Negative); Urine Blood 1+ (Negative); Urine Color Straw; Urine Glucose Negative (Negative); Urine Ketones Negative (Negative); Urine Nitrite Negative (Negative); Urine Protein Negative (Negative); Urine Red Blood Cell Trace(0-2/hpf) (Absent); Urine Specific Gravity 1.008 (1.010-1.030); Urine Urobilinogen Negative (Negative); Urine White Blood Cell Absent (Absent)
[2019-02-28 21:34] LABS: ABS Lymphocytes 1.7 10^3/ul (1.0-4.8); ABS Monocytes 0.9 10^3/ul (0-0.8); ABS Neutrophils 8.2 10^3/ul (1.5-7.7); Eosinophil % 0.4 %; Hematocrit 32 % (42-52); Hemoglobin 10.5 g/dL (14.0-18.0); Lymphocyte % 15.6 %; Mean Corpuscular HGB Conc 33 g/dL (31-36); Mean Corpuscular Hemoglobin 27 pg (27-31); Mean Corpuscular Volume 82 fL (80-94); Mean Platelet Volume 7.8 fL (7.4-10.4); Platelet Count 135 10^3/uL (150-450); Red Blood Count 3.92 10^6 /uL (4.18-5.48); Red Cell Distribution Width 15 % (10-15); White Blood Count 10.9 10^3/uL (3.5-10.8)
[2019-02-28 21:42] LABS: Activated Partial Thrombo Time 36.2 seconds (26.0-38.0); INR 1.12 (0.82-1.09)
[2019-02-28] MEDS ORDERED: Etomidate* 2 MG/ML 10 ML VIAL IV ONE (21:47)
[2019-02-28] MEDS ORDERED: Succinylcholine* 20 MG/ML 10 ML VIAL IV ONE (21:48)
[2019-02-28 21:52] LABS: ALT 11 U/L (7-52); AST 16 U/L (13-39); Albumin 3.6 g/dL (3.2-5.2); Albumin/Globulin Ratio 1.1 (1-3); Alkaline Phosphatase 60 U/L (34-104); Anion Gap 6 mmol/L (2-11); BUN/Creatinine Ratio 24.6 (8-20); Blood Urea Nitrogen 47 mg/dL (6-24); C Reactive Protein 64.61 mg/L (<8.01); CO2 Carbon Dioxide 32 mmol/L (22-32); Calcium 9.6 mg/dL (8.6-10.3); Chloride 103 mmol/L (101-111); EGFR African American 42.5 (>60); EGFR Non-African American 35.1 (>60); Globulin 3.4 g/dL (2-4); Glucose 206 mg/dL (70-100); Potassium 4.6 mmol/L (3.5-5.0); Sodium 141 mmol/L (135-145)
[2019-02-28 21:59] LABS: Troponin I 0.04 ng/mL (<0.04)
[2019-02-28] MEDS ORDERED: fentaNYL* 50 MCG/ML 2 ML VIAL (100 MCG VIAL) ONE ×2 (21:59→22:06)
[2019-02-28] MEDS ORDERED: Midazolam* 1 MG/ML 10 ML VIAL (10 MG) ONE (21:59)
[2019-02-28] MEDS ORDERED: fentaNYL INFUSION 50 MCG/ML* 2,500 MCG/50 ML BAG IV SCH (22:00)
[2019-02-28] MEDS ORDERED: Midazolam IV for DRIP* 100 MG in NS 0.9% 100 ML* 80 ML IV SCH (22:00)
[2019-02-28] MEDS: Midazolam* 1 MG/ML 10 ML VIAL (10 MG) IV SLOW PU ONE ×2 (22:04→22:14)
[2019-02-28] MEDS: fentaNYL* 50 MCG/ML 2 ML VIAL (100 MCG VIAL) IV SLOW PU ONE ×2 (22:04→22:37)
[2019-02-28 23:19] LABS: TSH (Thyroid Stimulating Horm) 1.25 mcIU/mL (0.34-5.60)
[2019-03-01] MEDS ORDERED: NS 0.9% 1000 ML** 1,000 ML IV SCH (00:15)
[2019-03-01] MEDS ORDERED: Dextrose 50% VIAL 50 ml IV PUSH PRN (00:20)
[2019-03-01] MEDS ORDERED: Albuterol HFA INHALER* 8 gm MDI INH PRN (00:39)
[2019-03-01] MEDS ORDERED: fentaNYL INFUSION 50 MCG/ML* 2,500 MCG/50 ML BAG IV SCH ×2 (01:00→01:32)
[2019-03-01] MEDS ORDERED: Midazolam IV for DRIP* 100 MG in NS 0.9% 100 ML* 80 ML IV SCH (01:00)
[2019-03-01] MEDS ORDERED: Zosyn per Pharmacy* NOTE FOLLOW UP SCH (01:00)
[2019-03-01] MEDS ORDERED: Pantoprazole IV* 40 MG IV SCH (01:00)
[2019-03-01] MEDS: ZOSYN 3.375 GM Q8H per EXTENDED INFUSION IVPB SCH ×6 (01:09→18:41)
[2019-03-01] MEDS: Insulin LISPRO* 1 UNITS UNIT SUBCUT SCH ×6 (01:10→20:48)
--- NOTE | 2019-03-01 03:08 | HP ---
HISTORY AND PHYSICAL: DATE OF ADMISSION: 02/28/19 PRIMARY CARE PROVIDER: Dr. Masters. CHIEF COMPLAINT: Weakness, falls, and somnolence. HISTORY OF PRESENT ILLNESS: Mr. Knox is a 69-year-old male with multiple medical conditions including coronary artery disease, type 2 diabetes complicated by peripheral neuropathy and diabetic foot ulcers requiring bilateral transmetatarsal amputations, rheumatoid arthritis that was felt to be active as of the end of January, depression, chronic pain, COPD, and history of lung cancer, who presents to the emergency room with complaints of increased falls, weakness, and somnolence. Unfortunately at this point, the patient is intubated and unable to provide any history. The patient's is left for the evening. According to nursing notes and ED provider notes, the patient developed weakness 2 hours prior to initial ER evaluation on the morning of . At that time, he reported to having at least daily falls for the past 3 days. The patient was evaluated in the ER and discharged home. He returned to the emergency room in the afternoon of 02/28/19 due to not acting right and weakness. It was also indicated this patient took all of his morning medications and afternoon medications at approximately 1300 when he got home. This did include 20 mg of oxycodone. In the ER, the patient noted to be drowsy. Several hours into his ER stay, he was noted to be lethargic but arousable after Narcan administration; however, the patient's mental status did not return to baseline. The patient received another dose of Narcan without any improvement in his mental status. The patient remained, at this point, somnolent. He was found to be making gurgling noises and unable to follow commands to cough and deep breathe. At that time, the decision was made to intubate the patient for airway protection. No further history is able to be obtained at this time. PAST MEDICAL HISTORY: 1. Coronary artery disease. 2. Type 2 diabetes. 3. Rheumatoid arthritis. 4. Depression. 5. Peripheral neuropathy. 6. History of sarcoidosis. 7. History of lung cancer. 8. Chronic pain. 9. Hyperlipidemia. 10. COPD. PAST SURGICAL HISTORY: 1. CABG. 2. Hernia repair. 3. Bilateral transmetatarsal amputations. 4. Permanent pacemaker for high-degree AV block. MEDICATIONS: 1. Minocycline 100 mg p.o. b.i.d. 2. Oxycodone 5 mg p.o. 4 times a day p.r.n. pain. 3. Oxycodone SR 10 mg p.o. b.i.d. 4. Her[facility] 1 cap p.o. daily. 5. BuSpar 10 mg p.o. twice daily p.r.n. anxiety. 6. Spiriva 1 puff inhaled daily. 7. Flomax 0.4 mg p.o. daily. 8. Simvastatin 20 mg p.o. daily. 9. Sertraline 25 mg p.o. daily. 10. Lyrica 50 mg p.o. t.i.d. 11. Pioglitazone 15 mg p.o. daily. 12. Omeprazole 20 mg p.o. daily. 13. Multivitamin 1 tab p.o. b.i.d. 14. Singulair 10 mg p.o. daily. 15. Remeron 30 mg p.o. q.h.s. 16. Magnesium oxide 800 mg p.o. daily. 17. Xopenex 2 puffs inhaled daily. 18. Lispro 6 units subcutaneous t.i.d. with meals. 19. Lantus 30 to 35 units subcutaneous q.h.s. 20. Lasix 60 mg p.o. daily. 21. Vitamin D3 1000 units p.o. daily. 22. Symbicort 160/4.5 two puffs inhaled twice daily. 23. Aspirin 81 mg p.o. daily. 24. Tylenol 650 mg p.o. q.8 hours p.r.n. pain. ALLERGIES: LISINOPRIL, METOPROLOL, PLAVIX, and SULFA. FAMILY HISTORY: Based on prior history and physicals revealed mom having a history of coronary artery disease and CHF, dad had coronary artery disease and pancreatic cancer. SOCIAL HISTORY: The patient is a former smoker quitting approximately 20 years ago. The patient is . His was present, but has since left for home. REVIEW OF SYSTEMS: Unobtainable from the patient due to him being sedated and intubated. PHYSICAL EXAMINATION GENERAL: The patient is a well-developed, middle-aged male appearing to be older than his stated age, lying in the stretcher, intubated, unresponsive due to sedation and in no acute distress. VITAL SIGNS: Blood pressure 114/49, pulse 82, respirations 15. Temp, there is no accurate temperature right now, his Morelos probe is broken. O2 saturation 100 % on 80% FiO2. HEENT: Pupils are pinpoint. Oropharynx is intubated. There is a right IJ. PULMONARY: Lungs are clear to auscultation anteriorly into the lateral bases. CARDIAC: Normal S1, S2. Regular rate and rhythm. I do not appreciate any murmurs. There is no lower extremity edema. ABDOMEN: Bowel sounds are present. Abdomen is soft, nontender, and nondistended. MUSCULOSKELETAL: At the time of my evaluation, the patient appears to still be under the effects of the succinylcholine. There is no tone in his limbs. GCS is 3T. There are bilateral transmetatarsal amputations. There are no ulcerations noted. PSYCH: Unable to be assessed. LABORATORY DATA: WBC 10.9, hemoglobin 10.5, hematocrit 32, platelets 135. INR 1.12. Sodium 141, potassium 4.6, chloride 103, CO2 32, BUN 47, creatinine 1.91, glucose 206, lactic acid 1.4, calcium 9.6. Bilirubin 0.5, AST 16, ALT 11 , alk phos 60. Troponin 0.04 x2. CRP 64.61. BNP 224. Albumin 3.6. TSH 1.25. Urinalysis reveals clear urine with specific gravity of 1.008. ABG 7.40/53/70. CT brain: Prior posterior scalp contusion with intact subjacent calvarium. No acute intracranial abnormality. There is mild cerebral volume loss. CT chest, abdomen, and pelvis: There is a 2-mm nodule in the right lung apex, which is stable. There are increased interstitial markings in the bilateral lungs slightly more prominent to the prior examination. There is a small right perihilar density extending to the inferior right lower lobe, which may represent developing pneumonia in the setting of fever. There is moderate fecal loading of the rectum with mild rectal wall thickening. There is thickening of the ascending colon and transverse colon without surrounding inflammatory changes, which may represent colitis. Small bowel was unremarkable. EKG reveals a paced rhythm. ASSESSMENT AND PLAN: Mr. Knox is a 69-year-old with a complicated past medical history including coronary artery disease, type 2 diabetes with peripheral neuropathy and history of diabetic foot ulcers ultimately prompting bilateral transmetatarsal amputation, rheumatoid arthritis, chronic obstructive pulmonary disease and chronic pain, who presents to the emergency room for the second time in 1 day with weakness and now somnolence, which ultimately required intubation for airway protection. 1. Weakness and falls. The etiology of this is not clear. The patient was seen recently by Dr. Rosenthal where it was noted that he had active rheumatoid arthritis. Perhaps, pain may be contributing to his falls. He also has peripheral neuropathy, which may be contributing to his falls. I am unable to ask the patient or his at this time whether or not he has been ambulating with shoes on as opposed to just ambulating barefoot. He will ultimately need physical therapy evaluation once he is not intubated. There could be infection leading to the weakness and falls. The patient did have a temperature at one point of 100.2 at approximately 7:46 p.m. There is a questionable right lower lobe infiltrate on CT. At this point, I am going to be starting Zosyn, which should cover likely pulmonary pathology and any potential GI pathology. 2. Somnolence. It is unclear why the patient became so somnolent in the emergency room. Somnolence has progressed during the time that he was here. He did take his long-acting oxycodone as well as what appears to be short- acting oxycodone around 1 p.m. It is possible that the combination of taking these 2 medications together may have been too much for him in terms of staying alert. He reportedly took all of his morning and noon medications. Lyrica is also on that list and could contribute to some of his somnolence. At this point , the patient was not safe breathing on his own. He was unable to follow commands and his mental status deteriorated, where he required intubation. He is now sedated with Versed and fentanyl. We will lower these medications as able to maintain a RASS of -2. 3. Type 2 diabetes. The patient typically takes 30 to 35 units of Lantus at bedtime. He did not receive this this evening. He is going to have fingersticks q.4 hours. He will be covered with the lispro sliding scale and I have ordered Lantus 10 units for bedtime on 03/01/19. These doses can be adjusted as needed. 4. Stage 3 chronic kidney disease. The patient's creatinine is elevated at 1.91. This is higher than where he has been most recently which has been in the 1.7 to 1.8 range. He typically takes Lasix 60 mg daily; this is going to be held temporarily. 5. Elevated troponin. I suspect this is secondary to demand ischemia. There were no reported complaints of chest pain documented by nursing. 6. Coronary artery disease. As above, there have been no complaints of chest pain. He will continue on aspirin 81 mg daily. 7. Chronic obstructive pulmonary disease. I did not hear any wheezing on exam. He did receive a dose of Solu-Medrol in the emergency room. I will order p.r.n. albuterol for evidence of wheezing. I am going to hold his other respiratory treatments. 8. Rheumatoid arthritis. The patient has been taking minocycline as prescribed by Dr. Rosenthal. This is being held. 9. Benign prostatic hypertrophy. The patient has a Morelos catheter in place. His Flomax is being held. 10. Hyperlipidemia. Simvastatin is currently held. 11. Depression/anxiety. The patient's Zoloft, Remeron, and BuSpar are being held. 12. DVT prophylaxis. According to the Adult Thrombosis Prophylaxis Risk Factor Assessment Guide, the patient has a total risk factor score of 5, making him the highest risk. He is being placed on heparin 5000 units subcutaneous q.8 hours. 13. Code status is full. TIME SPENT: Sixty-five minutes of critical care time was spent admitting this patient. [id number]/[facility] #: [id number] BAR
[2019-03-01 05:31] LABS: ABS Lymphocytes 0.5 10^3/ul (1.0-4.8); ABS Monocytes 0.1 10^3/ul (0-0.8); Hematocrit 29 % (42-52); Hemoglobin 9.5 g/dL (14.0-18.0); Mean Corpuscular HGB Conc 33 g/dL (31-36); Mean Corpuscular Hemoglobin 27 pg (27-31); Mean Corpuscular Volume 82 fL (80-94); Mean Platelet Volume 7.3 fL (7.4-10.4); Platelet Count 136 10^3/uL (150-450); Red Blood Count 3.56 10^6 /uL (4.18-5.48); Red Cell Distribution Width 15 % (10-15); White Blood Count 7.6 10^3/uL (3.5-10.8)
[2019-03-01] MEDS: Heparin VIAL(*) 5000 UNITS/ML VIAL (FIVE THOUSAND) SUBCUT SCH ×3 (05:36→20:47)
[2019-03-01 05:47] LABS: BUN/Creatinine Ratio 23.8 (8-20); Calcium 9.1 mg/dL (8.6-10.3); EGFR Non-African American 35.5 (>60); Potassium 4.6 mmol/L (3.5-5.0)
[2019-03-01] MEDS ORDERED: Dexmedetomidine* 1,000 MCG in NS 0.9% 250 ML* 240 ML IV SCH (09:00)
[2019-03-01] MEDS: Chlorhexidine MOUTHWASH 0.12%* 15 ML UDC TOPICAL SCH ×2 (09:41→12:19)
[2019-03-01] MEDS: Aspirin EC TAB* 81 MG TAB.EC PO SCH (09:54)
[2019-03-01] MEDS ORDERED: Furosemide IV* 10 MG/ML VIAL (40 MG) IV ONE (10:36)
[2019-03-01 11:17] LABS: Troponin I 0.12 ng/mL (<0.04)
[2019-03-01] MEDS ORDERED: Insulin NPH(*) 1 UNITS UNIT SUBCUT ONE (11:41)
--- NOTE | 2019-03-01 11:45 | CONSULT ---
Consult Consult: Consultation Note -- Critical Care Requesting Physician: Dr Nathalie Prado Reason for consult: encephalopathy, respiratory failure, intubated Limitations in history/physical: intubated/sedated Date of consult: 03/01/2019 HPI: 69y M w/pmhx of COPD on home O2 2L, CAD/CABG, s/p PPM, DM, peripheral neuropathy/diabetic foot with bilateral metatarsal amputations, RA, Depression, chronic pain, Lung Ca, CKD3; presented to ER on 02/28 for weakness which as per was ongiong for the past few weeks but he actually started to speak less past 1 day. Also noted to ahve more falls at home recently also. Has been using a wheelchair since last june 2018, sometimes uses walker. HE came to [facility] ER , evaluated but no reason found on CT brain or otherwise, so discharged home. At home he took his oxycodone and oxycontin but more than before and so was more lethargic and weaker and came to ER again. He was somnolent and given Narcan but no improvement after a second dose either. He appeared to be lethargic and a question of airway being maintained was there so he was intubated for airway protection. He is now in ICU. awakening off sedation, follows commands. afebrile, tmax 100. CXR with congestion more so, ett in place. No pressors, s/p IVF NS infusion ongoing but stopped. at bedside and history obtained. ROS: ROS unable to be obtained due to intubated state PMHx: COPD on home O2 2L, CAD/CABG, s/p PPM, DM, peripheral neuropathy/diabetic foot with bilateral metatarsal amputations, RA, Depression, chronic pain, Lung Ca, CKD3 PSHx: CABG, hernia repair, metatarsal amputations, s/p PPM Family History: CAD mother and father, pancreatic Ca in father Social History: Alcohol-none, Smoking-quit 20yrs back, Drug use-none; with Allergies: Allergies Allergy/AdvReac Type Severity Reaction Status Date / Time lisinopril Allergy Unknown Verified 02/13/19 11:17 Reaction Details metoprolol Allergy Unknown Verified 02/13/19 11:17 Reaction Details clopidogrel AdvReac Severe Made Verified 02/13/19 11:17 opiate effect more intense Sulfa (Sulfonamide AdvReac Rash Verified 02/13/19 11:17 Antibiotics) Home Medications: Acetaminophen TAB* [Tylenol TAB*] 650 mg PO Q8HR PRN 04/09/15 [History Confirmed 02/28/19] Aspirin EC TAB* [Ecotrin EC Low Dose 81 MG*] 81 mg PO DAILY #0 tab.ec 10/17/15 [ Rx Confirmed 02/28/19] Mirtazapine TAB* [Remeron TAB*] 30 mg PO BEDTIME tab 10/17/15 [Rx Confirmed ] Insulin GLARGINE(*) [Lantus(*)] 30 - 35 units SUBCUT BEDTIME 01/21/16 [History Confirmed 02/28/19] Tamsulosin CAP* [Flomax CAP*] 0.4 mg PO DAILY 03/26/16 [History Confirmed ] Tiotropium CAP.INH* [Spiriva CAP.INH*] 1 cap.inh INH DAILY 03/26/16 [History Confirmed 02/28/19] Levalbuterol HFA INHALER* [Xopenex Hfa Inhaler*] 2 puff INH DAILY 03/29/16 [ History Confirmed 02/28/19] Omeprazole CAP (NF) [Prilosec CAP* 20 MG] 20 mg PO DAILY 03/29/16 [History Confirmed 02/28/19] busPIRone TAB* [Buspar TAB*] 10 mg PO BID PRN 03/29/16 [History Confirmed ] Montelukast Sodium TAB* [Singulair TAB*] 10 mg PO DAILY 04/09/16 [History Confirmed 02/28/19] oxyCODONE TAB* [Roxycodone TAB 5 mg*] 5 mg PO QID PRN MDD 4 08/02/17 [History Confirmed 02/28/19] Budesonide/Formote 160/4.5(NF) [Symbicort 160/4.5 (NF)] 2 puff INH BID 11/02/17 [History Confirmed 02/28/19] Cholecalciferol (Vitamin D3) [Vitamin D3] 1,000 unit PO DAILY 11/02/17 [History Confirmed 02/28/19] Insulin LISPRO* [HumaLOG*] 6 units SUBCUT TID WITH MEALS 11/02/17 [History Confirmed 02/28/19] Magnesium Oxide TAB* [MagOx 400 TAB*] 800 mg PO DAILY 11/02/17 [History Confirmed 02/28/19] Multivitamins/Minerals TAB* [Theragran/minerals TAB*] 1 tab PO BID 11/02/17 [ History Confirmed 02/28/19] Pioglitazone TAB* [Actos TAB*] 15 mg PO DAILY 11/02/17 [History Confirmed ] Pregabalin CAP(*) [Lyrica CAP(*)] 50 mg PO TID 11/02/17 [History Confirmed 02/28] Sertraline* [Zoloft*] 25 mg PO DAILY 11/02/17 [History Confirmed 02/28/19] Simvastatin TAB(NF) [Zocor 20 MG (NF)] 20 mg PO DAILY 11/02/17 [History Confirmed 02/28/19] l Gasseri/B Bifidum/B Longum [[facility]] 1 cap PO DAILY 11/02/17 [ History Confirmed 02/28/19] oxyCODONE SR TAB(*) [Oxycontin 10 mg (*)] 10 mg PO BID 02/09/18 [History Confirmed 02/28/19] Furosemide TAB* [Lasix TAB*] 60 mg PO DAILY 12/20/18 [History Confirmed 02/28/19 ] Minocycline (NF) 100 mg PO BID 03/01/19 [History Confirmed 03/01/19] Tele: Vpaced Vitals: Vital Signs Temp 99.1 F 03/01/19 07:00 Pulse 60 03/01/19 07:54 Resp 14 03/01/19 11:00 BP 142/61 03/01/19 07:00 Pulse Ox 97 03/01/19 08:00 Intake & Output 02/28/19 03/01/19 03/01/19 18:59 06:59 18:59 Intake Total 3054 9 Output Total 1645 245 Balance 1409 -236 Weight 90.718 kg 127.457 kg Intake: IV Fluids 3054 NS (0.9%) 194 IV Narcotic Infusion 9 Fentanyl 9 Output: Marie 1645 245 O2/Vent: AC 50% Infusions: versed/fent off now; NS discontinued Current Medications: Albuterol (Ventolin Hfa Inhaler*) 4 puff INH Q4H PRN PRN Reason: SOB/WHEEZING Aspirin (Aspirin Ec Tab*) 81 mg PO DAILY [facility] Last Admin: 03/01/19 09:54 Dose: 81 mg Chlorhexidine Gluconate (Peridex Mouth Wash 0.12%*) 15 ml TOPICAL Q4H [facility] Last Admin: 03/01/19 09:41 Dose: 15 ml Dextrose (Dextrose 50% Vial 50 Ml*) 25 ml IV PUSH .FOR FS < 60 - SS PRN PRN Reason: FS < 60 Heparin Sodium (Porcine) (Heparin Vial(*)) 5,000 units SUBCUT Q8HR [facility] Last Admin: 03/01/19 05:36 Dose: 5,000 units Piperacillin Sod/Tazobactam (Sod 3.375 gm/ Sodium Chloride) 100 mls @ 25 mls/ hr IVPB Q8H [facility] Last Admin: 03/01/19 09:24 Dose: 25 mls/hr Insulin Glargine (Lantus(*)) 10 units SUBCUT BEDTIME [facility] Insulin Human Lispro (Humalog*) 0 units SUBCUT Q4HR [facility]; Protocol Last Admin: 03/01/19 10:17 Dose: 12 units Pantoprazole Sodium (Protonix Iv*) 40 mg IV Q24H [facility] Last Admin: 03/01/19 01:09 Dose: 40 mg Pharmacy Consult (Zosyn Per Pharmacy*) 1 note FOLLOW UP .ZOSYN PER PHARMACY [facility] Physical Exam: Constitutional: sedated, intubated; follows commands now, no distress, no diaphoresis Head: normocephalic, atraumatic Eyes: no pallor, no icterus ENT: moist mucous membranes Neck: soft, supple, no jvd, no stridor CVS: normal rate, regular, no murmur Resp: bilateral air entry, no rhales, no wheeze, no rhonchi, no acc muscle use Abdomen/GI: soft, nontender, nondistended, BS+ Ext/Msk: warm, pulses+, no edema; distal metatarsal amputations+ Skin: intact, warm Neuro: intubated, sedated but now awake and follows commands, moving all extremities Labs: Laboratory Results - last 24 hr 02/28/19 02/28/19 02/28/19 17:41 17:41 20:49 WBC RBC Hgb Hct MCV MCH MCHC RDW Plt Count MPV Neut % (Auto) Lymph % (Auto) [place] % (Auto) Eos % (Auto) Baso % (Auto) Absolute Neuts (auto) Absolute Lymphs (auto) Absolute Monos (auto) Absolute Eos (auto) Absolute Basos (auto) Absolute Nucleated RBC Nucleated RBC % INR (Anticoag Therapy) APTT Patient Temperature ABG pH ABG pH (Temp Correct) ABG pCO2 ABG pCO2 (Temp Corrct ABG pO2 ABG pO2 (Temp Correct ABG HCO3 ABG O2 Saturation ABG Base Excess VBG pH 7.38 VBG pCO2 61 H VBG pO2 51.0 H VBG HCO3 31.3 H VBG O2 Saturation 86.2 H VBG Base Excess 8.7 H Respiration Rate Ventilator Type Vent Mode FiO2 Inspiratory Time PEEP Pressure Support Pressure Control EPAP IPAP BiPAP Sodium Potassium Chloride Carbon Dioxide Anion Gap BUN Creatinine Est GFR ( Amer) Est GFR (Non-Af Amer) BUN/Creatinine Ratio Glucose POC Glucose (mg/dL) Lactic Acid Calcium Total Bilirubin AST ALT Alkaline Phosphatase Troponin I 0.04 H* C-Reactive Protein B-Natriuretic Peptide Total Protein Albumin Globulin Albumin/Globulin Ratio TSH Urine Color Straw Urine Appearance Clear Urine pH 6.0 Ur Specific [place] 1.008 L Urine Protein Negative Urine Ketones Negative Urine Blood 1+ A Urine Nitrate Negative Urine Bilirubin Negative Urine Urobilinogen Negative Ur Leukocyte Esterase Negative Urine WBC (Auto) Absent Urine RBC (Auto) Trace(0-2/hpf) Urine Bacteria Absent Hyaline Casts Present A Urine Glucose Negative 02/28/19 02/28/19 02/28/19 20:56 20:56 20:56 WBC 10.9 H RBC 3.92 L Hgb 10.5 L Hct 32 L MCV 82 MCH 27 MCHC 33 RDW 15 Plt Count 135 L MPV 7.8 Neut % (Auto) 75.2 Lymph % (Auto) 15.6 [place] % (Auto) 8.6 Eos % (Auto) 0.4 Baso % (Auto) 0.2 Absolute Neuts (auto) 8.2 H Absolute Lymphs (auto) 1.7 Absolute Monos (auto) 0.9 H Absolute Eos (auto) 0.0 Absolute Basos (auto) 0.0 Absolute Nucleated RBC 0.0 Nucleated RBC % 0.0 INR (Anticoag Therapy) 1.12 H APTT 36.2 Patient Temperature ABG pH ABG pH (Temp Correct) ABG pCO2 ABG pCO2 (Temp Corrct ABG pO2 ABG pO2 (Temp Correct ABG HCO3 ABG O2 Saturation ABG Base Excess VBG pH VBG pCO2 VBG pO2 VBG HCO3 VBG O2 Saturation VBG Base Excess Respiration Rate Ventilator Type Vent Mode FiO2 Inspiratory Time PEEP Pressure Support Pressure Control EPAP IPAP BiPAP Sodium 141 Potassium 4.6 Chloride 103 Carbon Dioxide 32 Anion Gap 6 BUN 47 H Creatinine 1.91 H Est GFR ( Amer) 42.5 Est GFR (Non-Af Amer) 35.1 BUN/Creatinine Ratio 24.6 H Glucose 206 H POC Glucose (mg/dL) Lactic Acid Calcium 9.6 Total Bilirubin 0.50 AST 16 ALT 11 Alkaline Phosphatase 60 Troponin I 0.04 H* C-Reactive Protein 64.61 H B-Natriuretic Peptide Total Protein 7.0 Albumin 3.6 Globulin 3.4 Albumin/Globulin Ratio 1.1 TSH 1.25 Urine Color Urine Appearance Urine pH Ur Specific [place] Urine Protein Urine Ketones Urine Blood Urine Nitrate Urine Bilirubin Urine Urobilinogen Ur Leukocyte Esterase Urine WBC (Auto) Urine RBC (Auto) Urine Bacteria Hyaline Casts Urine Glucose 02/28/19 02/28/19 02/28/19 20:56 20:56 21:40 WBC RBC Hgb Hct MCV MCH MCHC RDW Plt Count MPV Neut % (Auto) Lymph % (Auto) [place] % (Auto) Eos % (Auto) Baso % (Auto) Absolute Neuts (auto) Absolute Lymphs (auto) Absolute Monos (auto) Absolute Eos (auto) Absolute Basos (auto) Absolute Nucleated RBC Nucleated RBC % INR (Anticoag Therapy) APTT Patient Temperature ABG pH 7.40 ABG pH (Temp Correct) ABG pCO2 53 H ABG pCO2 (Temp Corrct ABG pO2 70 L ABG pO2 (Temp Correct ABG HCO3 29.9 ABG O2 Saturation 96.6 ABG Base Excess 6.5 H VBG pH VBG pCO2 VBG pO2 VBG HCO3 VBG O2 Saturation VBG Base Excess Respiration Rate Ventilator Type Vent Mode FiO2 Inspiratory Time PEEP Pressure Support Pressure Control EPAP IPAP BiPAP Sodium Potassium Chloride Carbon Dioxide Anion Gap BUN Creatinine Est GFR ( Amer) Est GFR (Non-Af Amer) BUN/Creatinine Ratio Glucose POC Glucose (mg/dL) Lactic Acid 1.4 Calcium Total Bilirubin AST ALT Alkaline Phosphatase Troponin I C-Reactive Protein B-Natriuretic Peptide 224 H Total Protein Albumin Globulin Albumin/Globulin Ratio TSH Urine Color Urine Appearance Urine pH Ur Specific [place] Urine Protein Urine Ketones Urine Blood Urine Nitrate Urine Bilirubin Urine Urobilinogen Ur Leukocyte Esterase Urine WBC (Auto) Urine RBC (Auto) Urine Bacteria Hyaline Casts Urine Glucose 03/01/19 03/01/19 03/01/19 00:56 01:05 05:20 WBC RBC Hgb Hct MCV MCH MCHC RDW Plt Count MPV Neut % (Auto) Lymph % (Auto) [place] % (Auto) Eos % (Auto) Baso % (Auto) Absolute Neuts (auto) Absolute Lymphs (auto) Absolute Monos (auto) Absolute Eos (auto) Absolute Basos (auto) Absolute Nucleated RBC Nucleated RBC % INR (Anticoag Therapy) APTT Patient Temperature Not Reportable ABG pH 7.37 ABG pH (Temp Correct) Not Reportable ABG pCO2 51 H ABG pCO2 (Temp Corrct Not Reportable ABG pO2 211 H ABG pO2 (Temp Correct Not Reportable ABG HCO3 27.4 ABG O2 Saturation 99.9 H ABG Base Excess 3.1 H VBG pH VBG pCO2 VBG pO2 VBG HCO3 VBG O2 Saturation VBG Base Excess Respiration Rate 15 Ventilator Type 500 Vent Mode cmv FiO2 80 Inspiratory Time Not Reportable PEEP 5 Pressure Support Not Reportable Pressure Control Not Reportable EPAP Not Reportable IPAP Not Reportable BiPAP Not Reportable Sodium 139 Potassium 4.6 Chloride 103 Carbon Dioxide 32 Anion Gap 4 BUN 45 H Creatinine 1.89 H Est GFR ( Amer) 43.0 Est GFR (Non-Af Amer) 35.5 BUN/Creatinine Ratio 23.8 H Glucose 362 H POC Glucose (mg/dL) 374 H Lactic Acid Calcium 9.1 Total Bilirubin AST ALT Alkaline Phosphatase Troponin I C-Reactive Protein B-Natriuretic Peptide Total Protein Albumin Globulin Albumin/Globulin Ratio TSH Urine Color Urine Appearance Urine pH Ur Specific [place] Urine Protein Urine Ketones Urine Blood Urine Nitrate Urine Bilirubin Urine Urobilinogen Ur Leukocyte Esterase Urine WBC (Auto) Urine RBC (Auto) Urine Bacteria Hyaline Casts Urine Glucose 03/01/19 03/01/19 03/01/19 05:20 05:22 09:43 WBC 7.6 RBC 3.56 L Hgb 9.5 L Hct 29 L MCV 82 MCH 27 MCHC 33 RDW 15 Plt Count 136 L MPV 7.3 L Neut % (Auto) 92.0 Lymph % (Auto) 6.0 [place] % (Auto) 1.8 Eos % (Auto) 0.0 Baso % (Auto) 0.2 Absolute Neuts (auto) 7.0 Absolute Lymphs (auto) 0.5 L Absolute Monos (auto) 0.1 Absolute Eos (auto) 0.0 Absolute Basos (auto) 0.0 Absolute Nucleated RBC 0.0 Nucleated RBC % 0.0 INR (Anticoag Therapy) APTT Patient Temperature ABG pH ABG pH (Temp Correct) ABG pCO2 ABG pCO2 (Temp Corrct ABG pO2 ABG pO2 (Temp Correct ABG HCO3 ABG O2 Saturation ABG Base Excess VBG pH VBG pCO2 VBG pO2 VBG HCO3 VBG O2 Saturation VBG Base Excess Respiration Rate Ventilator Type Vent Mode FiO2 Inspiratory Time PEEP Pressure Support Pressure Control EPAP IPAP BiPAP Sodium Potassium Chloride Carbon Dioxide Anion Gap BUN Creatinine Est GFR ( Amer) Est GFR (Non-Af Amer) BUN/Creatinine Ratio Glucose POC Glucose (mg/dL) 375 H 311 H Lactic Acid Calcium Total Bilirubin AST ALT Alkaline Phosphatase Troponin I C-Reactive Protein B-Natriuretic Peptide Total Protein Albumin Globulin Albumin/Globulin Ratio TSH Urine Color Urine Appearance Urine pH Ur Specific [place] Urine Protein Urine Ketones Urine Blood Urine Nitrate Urine Bilirubin Urine Urobilinogen Ur Leukocyte Esterase Urine WBC (Auto) Urine RBC (Auto) Urine Bacteria Hyaline Casts Urine Glucose Imaging: Brain CT 02/28 - post scalp contusion; no acute findings CT abd/chest 02/28 - nodules+, increased interstitial markings+, thickened asc and transverse colon Assessment: 69y M w/pmhx of COPD on home O2 2L, CAD/CABG, s/p PPM, DM, peripheral neuropathy/diabetic foot with bilateral metatarsal amputations, RA, Depression, chronic pain, Lung Ca, CKD3; presented to ER on 02/28 for weakness which as per was ongiong for the past few weeks but he actually started to speak less past 1 day. Also noted to ahve more falls at home recently also. Has been using a wheelchair since last june 2018, sometimes uses walker. HE came to [facility] [place] ER, evaluated but no reason found on CT brain or otherwise, so discharged home. At home he took his oxycodone and oxycontin but more than before and so was more lethargic and weaker and came to ER again. He was somnolent and given Narcan but no improvement after a second dose either. He appeared to be lethargic and a question of airway being maintained was there so he was intubated for airway protection. -Encephalopathy -Weakness and recurrent falls -Acute on chronic hypoxic respiratory failure, intubated 02/28 -Pulmonay Congestion CKD3 Plan: Neuro- -stopped versed/fentanyl; following commands -will hold narcotics also for now better have neuro assessement after -neuro eval for recurrent falls after extubated -Delirium prec; avoid BDZ CVS- -BP stable -Vpaced rhythm -cont asa for CAD -d/c NS; noted ocngestion on CXR; Lasix 40mg IV x1 now -start lasix 40mg po tomorrow daily -Maintain MAP>65 Resp- -intubated; on 50% fio2 -off sedation; follows commands -CXR 02/28 with congestion -IV diuretics -minimal secretions -CPAP ongoing now; plan for extubation to NC/oximask; noted on home O2 -mild hypercapnea on ABG noted but ph balanced, [facility] chronic -Wean Fio2 to keep sat>92% -Bronchodilators PRN, Aspiration prec, Pulmonary Toilet -VAP bundle ID- tmax 100. wbc 10-7. LA neg -CXR with congestion 02/28 -check sputum cultures -on zosyn (day#1) for aspiration coverage GI- -NPO; swallow eval after extubation -GI prophylaxis - ppi Renal- -CKD 3 ; K okay, no acidosis; elevated BUN -CXR with congestion -lasix 40mg iv x1 now -hold IVF for now -strict I/O, replete to keep K>4, Mg>2 -marie as indicated Heme- anemia; hg 9-10s -plt okay; on asa for cad Endo- Maintain BG<200, insulin protocol as needed; BG>300; increase lantus to 25u qhs tonight; nph 10u now x1 Musculsk- pressure ulcer prophylaxis. oob to chair after extubation as tolerated Wounds- none Nutrition- swallow eval first DVT prophylaxis: SCD GI prophylaxis: ppi Central Line: no Arterial Line: no Marie Cathetor: yes Disposition: Patient requires Critical Care/ICU for respiratory failure Patient Clinical Status: guarded, critical Code Status: full code Total Critical Care time is 50 minutes, excluding procedures/teaching Pratik Rosas MD Traffic Checker (Electronically Signed)
--- NOTE | 2019-03-01 16:35 | CONS ---
NEUROLOGY CONSULTATION: DATE OF CONSULT: 03/01/19 LOCATION: He is in the intensive care unit. REFERRING PROVIDER: Dr. Rosas. PRIMARY CARE PROVIDER: Dr. Masters. CHIEF COMPLAINT: Weakness, repeated falls. HISTORY OF PRESENT ILLNESS: Emmanuel Knox is a 69-year-old man who has had repeated falls for at least a week according to the records. He presented yesterday with somnolence requiring intubation. Today, he was able to be extubated. It was noted by his to Dr. Rosas that he took more of his pain medications when he returned home from the emergency room than he normally does. It was after that that he became unresponsive. In regards to the falls, it apparently has been going on for at least a week or two. Currently, he is still pretty somnolent and is able to provide some history, but nods off when repeatedly stimulated. He does say that when he falls it is just that his legs are too weak. He denies feeling dizzy or vertiginous. He says his arms are not weak. That is pretty much all the detail I can get out of him at this point. PAST MEDICAL HISTORY: He has extensive past medical history of type 2 diabetes , peripheral metatarsal amputations bilaterally, rheumatoid arthritis, coronary artery disease, peripheral neuropathy, sarcoidosis, history of lung cancer, COPD , hyperlipidemia, coronary artery bypass grafting, herniorrhaphy, pacemaker for AV block. MEDICATIONS: At home consist of: 1. Minocycline 100 mg p.o. b.i.d. 2. Oxycodone 5 mg p.o. q.i.d. as needed. 3. Oxycodone slow release 10 mg p.o. b.i.d. 4. BuSpar 10 mg p.o. b.i.d. 5. Flomax 0.4 mg p.o. daily. 6. Simvastatin 20 mg p.o. daily. 7. Sertraline 25 mg p.o. daily. 8. Lyrica 50 mg p.o. t.i.d. 9. Pioglitazone 15 mg p.o. daily. 10. Omeprazole 20 mg p.o. b.i.d. 11. Singulair 10 mg p.o. daily. 12. Remeron 30 mg p.o. q.h.s. 13. Insulin. 14. Lasix 60 mg p.o. daily. 15. Aspirin 81 mg p.o. daily. ALLERGIES: He is listed as having allergies to SULFA DRUGS, LISINOPRIL, PLAVIX , and METOPROLOL. REVIEW OF SYSTEMS: From the patient is unproductive because of his somnolence. PHYSICAL EXAM: He is an overweight, chronically ill-appearing gentleman, lying in his ICU bed. Temperature has been consistently about 99.1 to 99.3 by [place], blood pressure most recently 154/72, heart rate is in the 60s to 70s on the monitor. Respiratory rate is 14 and oxygen saturation is 97% with supplemental oxygen. Heart tones are distant, but I do not hear any murmurs. Neck is supple. Neurological Exam: He is somnolent, but wakes to voice. Pupils react equally from 3.5 down to about 2 mm. Funduscopic exam is difficult with small pupils, but he has silver-wiring and brief look at sharp discs. Eye movements are full. Visual rascon are full to finger counting. Facial musculature is symmetric. Facial sensation to light touch is symmetric. Tongue protrudes in the midline. It looks as though he has had an uvulopalatoplasty. Speech is soft and mildly dysarthric. Motor exam reveals normal muscle tone in the upper extremities. There may be a spastic catch in the right leg. He has prominent asterixis in the extended arms and extended wrists. He appears to have weak hip flexors bilaterally, but he is so somnolent that it is hard to get a good assessment of his strength. He has no knee reflexes or upper extremity reflexes. He has bilateral metatarsal amputations. DIAGNOSTIC STUDIES/LAB DATA: Includes a CT of the brain when he was admitted, which I reviewed the images of and looks essentially normal for age. There is a scalp contusion. There is mild cerebral atrophy. Laboratory data notable for a chemistry profile with a BUN of 45 and creatinine of 1.89, which is stable to his historical norms. Glucose this morning is 362, total calcium is normal. Liver enzymes are normal as well. Troponin is elevated today at 0.12. TSH yesterday was normal at 1.25. INR yesterday on admission was borderline elevated at 1.12. IMPRESSION AND PLAN: I am not sure as to why Mr. Knox is falling and his exam is suboptimal because of his somnolence. I am going to cast a fairly broad net in terms of laboratory studies for myopathies and peripheral neuropathies. In addition to creatine kinase, I am going to check a carnitine level which can drop in patients with chronic renal insufficiency, more extensive thyroid testing, paraneoplastic antibodies, myasthenia gravis antibodies, and an ammonia level given his asterixis. He has not had a vitamin B12 level checked in over a year and so I will check that as well. I will continue to follow on him as long as he is in the hospital and try to sort out the cause of his repeated falls. [id number]/CPS #: [id number] MTDD
[2019-03-01] MEDS: amLODIPine TAB* 5 MG PO SCH (17:32)
[2019-03-01] MEDS: Acetaminophen TAB* 325 MG PO PRN (18:42)
[2019-03-01] MEDS: Tamsulosin CAP* 0.4 MG PO SCH (18:42)
[2019-03-01 19:09] LABS: Free T4 0.86 ng/dL (0.61-1.12)
[2019-03-01 19:10] LABS: Free T3 3.1 pg/mL (2.5-3.9)
[2019-03-01] MEDS: Pregabalin CAP(*) 50 MG PO SCH (20:47)
[2019-03-01] MEDS: CMC:Minocycline (NF) 50 MG CAP PO SCH (20:48)
[2019-03-01] MEDS: Insulin GLARGINE(*) 1 UNITS UNIT SUBCUT SCH (20:49)
[2019-03-01] MEDS ORDERED: Insulin GLARGINE(*) 1 UNITS UNIT SUBCUT SCH (21:00)
[2019-03-02] MEDS: ZOSYN 3.375 GM Q8H per EXTENDED INFUSION IVPB SCH ×6 (00:52→18:09)
[2019-03-02] MEDS: Heparin VIAL(*) 5000 UNITS/ML VIAL (FIVE THOUSAND) SUBCUT SCH ×3 (05:03→21:38)
[2019-03-02 05:24] LABS: Hematocrit 30 % (42-52); Hemoglobin 9.6 g/dL (14.0-18.0); Mean Corpuscular HGB Conc 33 g/dL (31-36); Mean Corpuscular Hemoglobin 27 pg (27-31); Mean Corpuscular Volume 82 fL (80-94); Mean Platelet Volume 7.6 fL (7.4-10.4); Platelet Count 127 10^3/uL (150-450); Red Blood Count 3.58 10^6 /uL (4.18-5.48); Red Cell Distribution Width 15 % (10-15); White Blood Count 8.4 10^3/uL (3.5-10.8)
[2019-03-02 05:45] LABS: BUN/Creatinine Ratio 20.9 (8-20); Calcium 9.8 mg/dL (8.6-10.3); EGFR African American 44.9 (>60); EGFR Non-African American 37.1 (>60); Magnesium 1.9 mg/dL (1.9-2.7); Phosphorus 2.8 mg/dL (2.5-5.0)
[2019-03-02] MEDS: Insulin LISPRO* 1 UNITS UNIT SUBCUT SCH ×4 (09:12→21:36)
[2019-03-02] MEDS: Acetaminophen TAB* 325 MG PO PRN ×2 (09:23→14:07)
[2019-03-02] MEDS: CMC:Minocycline (NF) 50 MG CAP PO SCH ×2 (09:23→21:07)
[2019-03-02] MEDS: Pregabalin CAP(*) 50 MG PO SCH ×3 (09:24→21:08)
[2019-03-02] MEDS: Tamsulosin CAP* 0.4 MG PO SCH (09:24)
[2019-03-02] MEDS: Montelukast Sodium TAB* 10 MG PO SCH (09:24)
[2019-03-02] MEDS: Furosemide TAB* 40 MG PO SCH (09:24)
[2019-03-02] MEDS: amLODIPine TAB* 5 MG PO SCH (09:24)
[2019-03-02] MEDS: Aspirin EC TAB* 81 MG TAB.EC PO SCH (09:24)
[2019-03-02] MEDS: Pantoprazole TAB * 40 MG TAB PO SCH (09:25)
[2019-03-02 15:07] LABS: Mycoplasma pneumoniae IgG Ab Positive (Negative); Mycoplasma pneumoniae IgM Ab Negative (Negative)
--- NOTE | 2019-03-02 19:20 | PN ---
Subjective Date of Service: 03/02/19 Interval History: Patient seen and examined. Remains sleepy but easily aroused. Complains of pain "all over" related to his arthritis. Denies SOB, no fever or chills. No further complaints. Objective Active Medications: Acetaminophen (Tylenol Tab*) 650 mg PO Q4H PRN PRN Reason: PAIN - MILD Last Admin: 03/02/19 14:07 Dose: 650 mg Albuterol (Ventolin Hfa Inhaler*) 4 puff INH Q4H PRN PRN Reason: SOB/WHEEZING Amlodipine Besylate (Norvasc Tab*) 5 mg PO DAILY COUNT INCLUDES [facility] Last Admin: 03/02/19 09:24 Dose: 5 mg Aspirin (Aspirin Ec Tab*) 81 mg PO DAILY COUNT INCLUDES [facility] Last Admin: 03/02/19 09:24 Dose: 81 mg Dextrose (Dextrose 50% Vial 50 Ml*) 25 ml IV PUSH .FOR FS < 60 - SS PRN PRN Reason: FS < 60 Furosemide (Lasix Tab*) 40 mg PO DAILY COUNT INCLUDES [facility] Last Admin: 03/02/19 09:24 Dose: 40 mg Heparin Sodium (Porcine) (Heparin Vial(*)) 5,000 units SUBCUT Q8HR COUNT INCLUDES THE [facility] Last Admin: 03/02/19 14:02 Dose: 5,000 units Piperacillin Sod/Tazobactam (Sod 3.375 gm/ Sodium Chloride) 100 mls @ 25 mls/ hr IVPB Q8H COUNT INCLUDES [facility] Last Admin: 03/02/19 18:09 Dose: 25 mls/hr Insulin Glargine (Lantus(*)) 25 units SUBCUT BEDTIME COUNT INCLUDES THE [facility] Last Admin: 03/01/19 20:49 Dose: 25 units Insulin Human Lispro (Humalog*) 0 units SUBCUT ACHS COUNT INCLUDES THE [facility]; Protocol Last Admin: 03/02/19 18:08 Dose: 6 units Minocycline HCl (Minocycline (Nf)) 100 mg PO BID COUNT INCLUDES [facility] Last Admin: 03/02/19 09:23 Dose: 100 mg Montelukast Sodium (Singulair Tab*) 10 mg PO DAILY COUNT INCLUDES [facility] Last Admin: 03/02/19 09:24 Dose: 10 mg Oxycodone HCl (Roxycodone Tab*) 5 mg PO Q8H PRN PRN Reason: PAIN - SEVERE Pantoprazole Sodium (Protonix Tab*) 40 mg PO DAILY COUNT INCLUDES [facility] Last Admin: 03/02/19 09:25 Dose: 40 mg Pharmacy Consult (Zosyn Per Pharmacy*) 1 note FOLLOW UP .ZOSYN PER PHARMACY COUNT INCLUDES THE [facility] Pregabalin (Lyrica Cap(*)) 50 mg PO TID COUNT INCLUDES THE [facility] Last Admin: 03/02/19 14:02 Dose: 50 mg Tamsulosin HCl (Flomax Cap*) 0.4 mg PO DAILY COUNT INCLUDES [facility] Last Admin: 03/02/19 09:24 Dose: 0.4 mg Vital Signs - 8 hr 03/02/19 03/02/19 03/02/19 11:35 14:02 15:35 Temperature 97.7 F 99.4 F Pulse Rate 85 84 Respiratory 20 18 16 Rate Blood Pressure 148/65 149/65 (mmHg) O2 Sat by Pulse 100 100 Oximetry 03/02/19 16:00 Temperature Pulse Rate Respiratory 18 Rate Blood Pressure (mmHg) O2 Sat by Pulse Oximetry Oxygen Devices in Use Now: Nasal Cannula Appearance: alert, NAD Eyes: No Scleral Icterus Ears/Nose/Mouth/Throat: Mucous Membranes Moist Neck: NL Appearance and Movements; NL JVP, Trachea Midline Respiratory: Symmetrical Chest Expansion and Respiratory Effort, Clear to Auscultation Cardiovascular: NL Sounds; No Murmurs; No JVD, RRR, No Edema Abdominal: NL Sounds; No Tenderness; No Distention Extremities: No Edema Skin: No Rash or Ulcers Neurological: Alert and Oriented x 3 Nutrition: Taking PO's Result Diagrams: 03/02/19 05:06 03/02/19 05:06 Microbiology and Other Data: Microbiology 02/28/19 22:14 Aerobic Blood Culture - Preliminary Blood Venous No Growth Day 1 Anaerobic Blood Culture - Preliminary No Growth Day 1 02/28/19 20:56 Aerobic Blood Culture - Preliminary Blood Venous No Growth Day 1 Anaerobic Blood Culture - Preliminary No Growth Day 1 02/28/19 20:46 Legionella Urinary Antigen - Final Urine Negative Legionella Antigen Streptococcus pneumoniae Ag Screen - Final Negative S. pneumo Antigen 03/01/19 00:30 Nasal Screen MRSA (PCR) - Final Nasal Mrsa Not Detected Assess/Plan/Problems-Billing Assessment: This is a 69 year old male with gait dysfunction, falls, and chronic pain that presented with somnolence and what appears to be unintentional overdose of home narcotic prescriptions. - Patient Problems (1) Narcotic overdose Code(s): T40.601A - POISONING BY UNSP NARCOTICS, ACCIDENTAL, INIT SNOMED Code( s): 974539232 Comment: - Required intubation, failed narcan administration, unintentional - Extubated and downgraded from ICU - Patient normally on longacting oxycontin with shortacting scheduled and lyrica which have been held - Being covered with zosyn for aspiration pneumonitis given airway compromise at admission (2) Altered mental status Code(s): R41.82 - ALTERED MENTAL STATUS, UNSPECIFIED SNOMED Code(s): 353893689 Comment: - 2/2 above, now improved - Will start low dose oxy 5mg Q8h for pain control and so patient does not withdraw - Continue lyrica - Hold meds for sedation (3) Hypertension Code(s): I10 - ESSENTIAL (PRIMARY) HYPERTENSION SNOMED Code(s): 58054521 Comment: - Continue norvasc and lasix (4) Fall Onset Date: 04/09/15 Comment: - PT/OT evals pending - Neuro consult appreciated, pending lab studies and further recs - Likely multifactorial, e.g, PVD, neuropathy, polypharmacy, obesity, deconditioning (5) COPD (chronic obstructive pulmonary disease) Code(s): J44.9 - CHRONIC OBSTRUCTIVE PULMONARY DISEASE, UNSPECIFIED SNOMED Code(s): 71714719 Comment: - O2 NC - Nebs, inhalers PRN - Pulmonary toilet with IS (6) Type 2 diabetes mellitus Comment: - CC diet, accuchecks, lantus and lispro SS (7) Full code status Code(s): Z78.9 - OTHER SPECIFIED HEALTH STATUS SNOMED Code(s): 443889813 Status and Disposition: Inpatient, dispo pending.
[2019-03-02] MEDS ORDERED: Albuterol/Ipratropium NEB.SOL* Albuterol 2.5 MG/Ipratropium 0.5 MG 3 ML INH PRN (19:32)
[2019-03-02] MEDS: oxyCODONE TAB* 5 MG TAB PO PRN (21:08)
[2019-03-02] MEDS: Insulin GLARGINE(*) 1 UNITS UNIT SUBCUT SCH (21:37)
[2019-03-03] MEDS: ZOSYN 3.375 GM Q8H per EXTENDED INFUSION IVPB SCH ×6 (01:26→17:21)
[2019-03-03] MEDS: Heparin VIAL(*) 5000 UNITS/ML VIAL (FIVE THOUSAND) SUBCUT SCH ×3 (05:52→22:00)
[2019-03-03] MEDS: oxyCODONE TAB* 5 MG TAB PO PRN ×3 (06:04→22:00)
[2019-03-03 06:16] LABS: Hematocrit 32 % (42-52); Hemoglobin 10.3 g/dL (14.0-18.0); Mean Corpuscular HGB Conc 33 g/dL (31-36); Mean Corpuscular Hemoglobin 27 pg (27-31); Mean Corpuscular Volume 82 fL (80-94); Mean Platelet Volume 7.3 fL (7.4-10.4); Platelet Count 143 10^3/uL (150-450); Red Blood Count 3.89 10^6 /uL (4.18-5.48); Red Cell Distribution Width 15 % (10-15); White Blood Count 7.7 10^3/uL (3.5-10.8)
[2019-03-03 06:31] LABS: Calcium 9.7 mg/dL (8.6-10.3); EGFR African American 46.7 (>60); EGFR Non-African American 38.6 (>60); Magnesium 1.8 mg/dL (1.9-2.7); Phosphorus 3.3 mg/dL (2.5-5.0); Potassium 3.9 mmol/L (3.5-5.0)
[2019-03-03] MEDS: Acetaminophen TAB* 325 MG PO PRN ×3 (09:18→20:59)
[2019-03-03] MEDS: Aspirin EC TAB* 81 MG TAB.EC PO SCH (09:19)
[2019-03-03] MEDS: Insulin LISPRO* 1 UNITS UNIT SUBCUT SCH ×4 (09:19→22:01)
[2019-03-03] MEDS: Furosemide TAB* 40 MG PO SCH (09:19)
[2019-03-03] MEDS: CMC:Minocycline (NF) 50 MG CAP PO SCH ×2 (09:20→20:59)
[2019-03-03] MEDS: Tamsulosin CAP* 0.4 MG PO SCH (09:20)
[2019-03-03] MEDS: Pantoprazole TAB * 40 MG TAB PO SCH (09:20)
[2019-03-03] MEDS: amLODIPine TAB* 5 MG PO SCH (09:20)
[2019-03-03] MEDS: Montelukast Sodium TAB* 10 MG PO SCH (09:20)
[2019-03-03] MEDS: Pregabalin CAP(*) 50 MG PO SCH ×3 (09:20→21:00)
--- NOTE | 2019-03-03 16:32 | PN ---
Subjective Date of Service: 03/03/19 Interval History: Mr. Knox is feeling better today. He denies any SOB. Offers no complaints, but when asked about a headache specifically, does admit to having a headache. Unable to further describe the pain. He denies CP, SOB, N/V. is concerned about insulin dosing and if she had been giving him the correct sliding scale at home. No concerns from nursing. Family History: Unchanged from Admission Social History: Unchanged from Admission Past Medical History: Unchanged from Admission Objective Active Medications: Acetaminophen (Tylenol Tab*) 650 mg PO Q4H PRN PAIN - MILD Albuterol (Ventolin Hfa Inhaler*) 4 puff INH Q4H PRN SOB/WHEEZING Albuterol/Ipratropium (Duoneb (Albuterol 2.5 Mg/Ipratropium 0.5 Mg)) 1 neb INH Q6H PRN SOB/WHEEZING Amlodipine Besylate (Norvasc Tab*) 5 mg PO DAILY [facility] Aspirin (Aspirin Ec Tab*) 81 mg PO DAILY [facility] Dextrose (Dextrose 50% Vial 50 Ml*) 25 ml IV PUSH .FOR FS < 60 - SS PRN FS < 60 Furosemide (Lasix Tab*) 40 mg PO DAILY [facility] Heparin Sodium (Porcine) (Heparin Vial(*)) 5,000 units SUBCUT Q8HR [facility] Piperacillin Sod/Tazobactam (Sod 3.375 gm/ Sodium Chloride) 100 mls @ 25 mls/ hr IVPB Q8H [facility] Insulin Glargine (Lantus(*)) 25 units SUBCUT BEDTIME [facility] Insulin Human Lispro (Humalog*) 0 units SUBCUT ACHS [facility]; Protocol Minocycline HCl (Minocycline (Nf)) 100 mg PO BID [facility] Montelukast Sodium (Singulair Tab*) 10 mg PO DAILY [facility] Oxycodone HCl (Roxycodone Tab*) 5 mg PO Q8H PRN PAIN - SEVERE Pantoprazole Sodium (Protonix Tab*) 40 mg PO DAILY [facility] Pregabalin (Lyrica Cap(*)) 50 mg PO TID [facility] Tamsulosin HCl (Flomax Cap*) 0.4 mg PO DAILY [facility] Vital Signs - 8 hr 03/03/19 03/03/19 03/03/19 09:20 11:20 11:58 Temperature 97.8 F Pulse Rate 88 Respiratory 17 18 16 Rate Blood Pressure 132/64 (mmHg) O2 Sat by Pulse 99 Oximetry 03/03/19 03/03/19 03/03/19 14:13 14:14 15:16 Temperature 97.6 F Pulse Rate 83 Respiratory 17 17 17 Rate Blood Pressure 142/60 (mmHg) O2 Sat by Pulse 100 Oximetry Oxygen Devices in Use Now: Nasal Cannula - 2L Appearance: Elderly male sitting in bed in NAD Eyes: No Scleral Icterus Ears/Nose/Mouth/Throat: Mucous Membranes Moist Neck: NL Appearance and Movements; NL JVP, Trachea Midline Respiratory: Symmetrical Chest Expansion and Respiratory Effort, - - Scattered rhonchi throughout Cardiovascular: NL Sounds; No Murmurs; No JVD, RRR Abdominal: NL Sounds; No Tenderness; No Distention Neurological: Alert and Oriented x 3 Lines/Tubes/Other Access: Clean, Dry and Intact Peripheral IV Nutrition: Taking PO's Result Diagrams: 03/03/19 06:00 03/03/19 06:00 Assess/Plan/Problems-Billing Assessment: Mr. Knox is a 69 yo M with PMH of gait dysfunction, falls, DM, and chronic pain, that presented with somnolence and what appears to be unintentional overdose of home narcotic prescriptions, requiring intubation. - Patient Problems (1) Narcotic overdose Code(s): T40.601A - POISONING BY UNSP NARCOTICS, ACCIDENTAL, INIT Comment: - Unintentional - Failed Narcan administration and required intubation - Extubated 03/01 and downgraded from ICU - Patient normally on Oxycontin, oxycodone, Lyrica - Possible aspiration pneumonitis d/t airway compromise - Continue Zosyn (2) Altered mental status Code(s): R41.82 - ALTERED MENTAL STATUS, UNSPECIFIED Comment: - Now improved - Hold pain medications for sedation (3) Fall Comment: - Likely multifactorial: PVD, neuropathy, polypharmacy, obesity, deconditioning - Appreciate Neuro consult; workup pending - PT/OT evals pending (4) Chronic pain Code(s): G89.29 - OTHER CHRONIC PAIN Comment: - Hold Oxycontin - Continue oxycodone (decreased from home dose), Lyrica (5) COPD (chronic obstructive pulmonary disease) Code(s): J44.9 - CHRONIC OBSTRUCTIVE PULMONARY DISEASE, UNSPECIFIED Comment: - O2 NC - Pulmonary toileting - Continue albuterol; resume Spiriva (6) Type 2 diabetes mellitus Comment: - Poor control, BG 200s - Continue Lantus, Lispro SS (7) Hypertension Code(s): I10 - ESSENTIAL (PRIMARY) HYPERTENSION Comment: - Normotensive, SBP 130-140s - Continue amlodipine, furosemide (8) Anxiety and depression Code(s): F41.9 - ANXIETY DISORDER, UNSPECIFIED; F32.9 - MAJOR DEPRESSIVE DISORDER, SINGLE EPISODE, UNSPECIFIED Comment: - Continue sertraline; resume mirtazapine, buspirone (9) Hyperlipidemia Code(s): E78.5 - HYPERLIPIDEMIA, UNSPECIFIED Comment: - Resume simvastatin (10) GERD (gastroesophageal reflux disease) Code(s): K21.9 - GASTRO-ESOPHAGEAL REFLUX DISEASE WITHOUT ESOPHAGITIS Comment : - Continue pantoprazole (11) BPH (benign prostatic hypertrophy) Code(s): N40.0 - BENIGN PROSTATIC HYPERPLASIA WITHOUT LOWER URINRY TRACT SYMP Comment: - Continue tamsulosin (12) DVT prophylaxis Comment: - Heparin SQ (13) Full code status Code(s): Z78.9 - OTHER SPECIFIED HEALTH STATUS Comment: Status and Disposition: Inpatient. Anticipate d/c home vs [facility] when medically stable. Attending: Harmony Montero
[2019-03-03] MEDS ORDERED: busPIRone TAB* 10 MG PO PRN (16:42)
[2019-03-03] MEDS: Mometasone/Formoter 200/5 MDI INH SCH (20:30)
[2019-03-03] MEDS: Mirtazapine TAB* 15 MG PO SCH (21:00)
[2019-03-03] MEDS: Multivitamins/Minerals TAB PO SCH (21:00)
[2019-03-03] MEDS: Insulin GLARGINE(*) 1 UNITS UNIT SUBCUT SCH (22:00)
[2019-03-04] MEDS: ZOSYN 3.375 GM Q8H per EXTENDED INFUSION IVPB SCH ×6 (01:50→16:49)
[2019-03-04] MEDS: Heparin VIAL(*) 5000 UNITS/ML VIAL (FIVE THOUSAND) SUBCUT SCH ×3 (05:40→21:16)
[2019-03-04] MEDS: oxyCODONE TAB* 5 MG TAB PO PRN ×2 (05:40→15:00)
[2019-03-04 06:02] LABS: Hematocrit 34 % (42-52); Hemoglobin 11.1 g/dL (14.0-18.0); Mean Corpuscular HGB Conc 32 g/dL (31-36); Mean Corpuscular Hemoglobin 26 pg (27-31); Mean Corpuscular Volume 82 fL (80-94); Mean Platelet Volume 7.1 fL (7.4-10.4); Platelet Count 153 10^3/uL (150-450); Red Blood Count 4.22 10^6 /uL (4.18-5.48); Red Cell Distribution Width 15 % (10-15); White Blood Count 7.3 10^3/uL (3.5-10.8)
[2019-03-04 06:19] LABS: BUN/Creatinine Ratio 16.5 (8-20); Calcium 9.3 mg/dL (8.6-10.3); EGFR African American 46.7 (>60); EGFR Non-African American 38.6 (>60); Magnesium 1.7 mg/dL (1.9-2.7); Phosphorus 4.1 mg/dL (2.5-5.0)
[2019-03-04] MEDS: Tiotropium CAPSULE (NF) 1 CAP/18 MCG CAP.INH INH SCH (07:02)
[2019-03-04] MEDS: Mometasone/Formoter 200/5 MDI INH SCH ×2 (07:02→20:30)
[2019-03-04] MEDS: amLODIPine TAB* 5 MG PO SCH (08:26)
[2019-03-04] MEDS: Multivitamins/Minerals TAB PO SCH ×2 (08:26→21:15)
[2019-03-04] MEDS: Pregabalin CAP(*) 50 MG PO SCH ×3 (08:26→21:15)
[2019-03-04] MEDS: Tamsulosin CAP* 0.4 MG PO SCH (08:26)
[2019-03-04] MEDS: Acetaminophen TAB* 325 MG PO PRN ×2 (08:26→17:18)
[2019-03-04] MEDS: Montelukast Sodium TAB* 10 MG PO SCH (08:27)
[2019-03-04] MEDS: Aspirin EC TAB* 81 MG TAB.EC PO SCH (08:27)
[2019-03-04] MEDS: Atorvastatin* 10 MG TAB PO SCH (08:27)
[2019-03-04] MEDS: Insulin LISPRO* 1 UNITS UNIT SUBCUT SCH ×4 (08:27→21:14)
[2019-03-04] MEDS: Sertraline* 25 MG TAB PO SCH (08:27)
[2019-03-04] MEDS: Pantoprazole TAB * 40 MG TAB PO SCH (08:27)
[2019-03-04] MEDS: Furosemide TAB* 40 MG PO SCH (08:27)
[2019-03-04] MEDS: CMC:Minocycline (NF) 50 MG CAP PO SCH ×2 (08:30→21:15)
[2019-03-04] MEDS ORDERED: Magnesium Oxide TAB* 400 MG PO SCH (09:00)
[2019-03-04] MEDS ORDERED: Spiriva HANDIHALER DEVICE (NF) 1 EACH DEVICE INH ONE (09:00)
[2019-03-04] MEDS ORDERED: Magnesium Sulf 4 GM/100 ML IV* 4,000 MG/100 ML BAG IVPB ONE (12:27)
--- NOTE | 2019-03-04 12:32 | PN ---
Subjective Date of Service: 03/04/19 Interval History: Mr. Knox is feeling better today. He c/o generalized "arthritis" pain. Denies SOB or CP. Did have a headache overnight which has resolved. Good appetite. He wants to go home and not to rehab. States he was transferring in and out of prior to admission, but states she is unable to assist him if needed. No concerns from nursing. Family History: Unchanged from Admission Social History: Unchanged from Admission Past Medical History: Unchanged from Admission Objective Active Medications: Acetaminophen (Tylenol Tab*) 650 mg PO Q4H PRN PAIN - MILD Albuterol (Ventolin Hfa Inhaler*) 4 puff INH Q4H PRN SOB/WHEEZING Albuterol/Ipratropium (Duoneb (Albuterol 2.5 Mg/Ipratropium 0.5 Mg)) 1 neb INH Q6H PRN SOB/WHEEZING Amlodipine Besylate (Norvasc Tab*) 5 mg PO DAILY [facility] Aspirin (Aspirin Ec Tab*) 81 mg PO DAILY [facility] Atorvastatin Calcium (Lipitor*) 10 mg PO DAILY [facility] Buspirone HCl (Buspar Tab*) 10 mg PO BID PRN ANXIETY Dextrose (Dextrose 50% Vial 50 Ml*) 25 ml IV PUSH .FOR FS < 60 - SS PRN FS < 60 Furosemide (Lasix Tab*) 40 mg PO DAILY [facility] Heparin Sodium (Porcine) (Heparin Vial(*)) 5,000 units SUBCUT Q8HR [facility] Piperacillin Sod/Tazobactam (Sod 3.375 gm/ Sodium Chloride) 100 mls @ 25 mls/ hr IVPB Q8H [facility] Insulin Glargine (Lantus(*)) 25 units SUBCUT BEDTIME [facility] Insulin Human Lispro (Humalog*) 0 units SUBCUT ACHS [facility]; Protocol Magnesium Oxide (Magox 400 Tab*) 800 mg PO DAILY [facility] Minocycline HCl (Minocycline (Nf)) 100 mg PO BID [facility] Mirtazapine (Remeron Tab*) 30 mg PO BEDTIME [facility] Mometasone Furoate/Formoterol Fumar (Dulera 200/5 Mdi*) 2 puff INH BID [facility]; Protocol Montelukast Sodium (Singulair Tab*) 10 mg PO DAILY [facility] Multivitamins/Minerals (Theragran/Minerals Tab*) 1 tab PO BID [facility] Oxycodone HCl (Roxycodone Tab*) 5 mg PO Q8H PRN PAIN - SEVERE Pantoprazole Sodium (Protonix Tab*) 40 mg PO DAILY [facility] Pregabalin (Lyrica Cap(*)) 50 mg PO TID [facility] Sertraline HCl (Zoloft*) 25 mg PO DAILY [facility] Tamsulosin HCl (Flomax Cap*) 0.4 mg PO DAILY [facility] Tiotropium [place] (Spiriva Cap.Inh*) 1 cap INH DAILY [facility] Vital Signs - 8 hr 03/04/19 03/04/19 03/04/19 05:40 07:05 07:15 Temperature 97.2 F Pulse Rate 82 98 Respiratory 20 18 16 Rate Blood Pressure 131/96 (mmHg) O2 Sat by Pulse 97 98 Oximetry 03/04/19 03/04/19 03/04/19 07:35 08:13 08:26 Temperature Pulse Rate Respiratory 18 16 16 Rate Blood Pressure (mmHg) O2 Sat by Pulse 98 Oximetry 03/04/19 03/04/19 11:00 11:21 Temperature 98.3 F Pulse Rate 88 Respiratory 18 16 Rate Blood Pressure 136/63 (mmHg) O2 Sat by Pulse 98 Oximetry Oxygen Devices in Use Now: Nasal Cannula - 2L Appearance: Elderly male sitting in chair in NAD Eyes: No Scleral Icterus Ears/Nose/Mouth/Throat: Mucous Membranes Moist Neck: NL Appearance and Movements; NL JVP, Trachea Midline Respiratory: Symmetrical Chest Expansion and Respiratory Effort, Clear to Auscultation Cardiovascular: NL Sounds; No Murmurs; No JVD, RRR Abdominal: NL Sounds; No Tenderness; No Distention Extremities: No Edema Neurological: Alert and Oriented x 3 Lines/Tubes/Other Access: Clean, Dry and Intact Central Line Nutrition: Taking PO's Result Diagrams: 03/04/19 05:45 03/04/19 05:45 Assess/Plan/Problems-Billing Assessment: Mr. Knox is a 69 yo M with PMH of gait dysfunction, falls, DM, and chronic pain, that presented with somnolence and what appears to be unintentional overdose of home narcotic prescriptions, requiring intubation. - Patient Problems (1) Narcotic overdose Code(s): T40.601A - POISONING BY UNSP NARCOTICS, ACCIDENTAL, INIT Comment: - Unintentional - Failed Narcan administration and required intubation - Extubated 03/01 and downgraded from ICU - Patient normally on Oxycontin, oxycodone, Lyrica - Possible aspiration pneumonitis d/t airway compromise - Continue Zosyn (day 4/5) (2) Altered mental status Code(s): R41.82 - ALTERED MENTAL STATUS, UNSPECIFIED Comment: - Now improved - Hold pain medications for sedation (3) Fall Comment: - Likely multifactorial: PVD, neuropathy, polypharmacy, obesity, deconditioning - Appreciate Neuro consult; workup pending - PT indicates he could benefit from skilled PT, but he is refusing; will reassess tomorrow (4) Chronic pain Code(s): G89.29 - OTHER CHRONIC PAIN Comment: - Hold Oxycontin - Continue oxycodone (decreased from home dose), Lyrica (5) COPD (chronic obstructive pulmonary disease) Code(s): J44.9 - CHRONIC OBSTRUCTIVE PULMONARY DISEASE, UNSPECIFIED Comment: - O2 NC - Pulmonary toileting - Continue albuterol, Spiriva (6) Type 2 diabetes mellitus Comment: - Poor control, BG 200s - Continue Lantus, Lispro SS (7) Hypertension Code(s): I10 - ESSENTIAL (PRIMARY) HYPERTENSION Comment: - Normotensive, SBP 130s - Continue amlodipine, furosemide (8) Anxiety and depression Code(s): F41.9 - ANXIETY DISORDER, UNSPECIFIED; F32.9 - MAJOR DEPRESSIVE DISORDER, SINGLE EPISODE, UNSPECIFIED Comment: - Continue sertraline, mirtazapine, buspirone (9) Hyperlipidemia Code(s): E78.5 - HYPERLIPIDEMIA, UNSPECIFIED Comment: - Continue simvastatin (10) CKD (chronic kidney disease), stage III Code(s): N18.3 - CHRONIC KIDNEY DISEASE, STAGE 3 (MODERATE) Comment: - Creatinine at baseline (11) Anemia Code(s): D64.9 - ANEMIA, UNSPECIFIED Comment: - H&H stable - Previously iron deficient - Suspect ID and anemia of chronic disease 2/2 CKD - Pending iron studies (12) CAD (coronary artery disease) Code(s): I25.10 - ATHSCL HEART DISEASE OF [place] CORONARY ARTERY W/O ANG PCTRS Comment: - Continue aspirin, atorvastatin (13) GERD (gastroesophageal reflux disease) Code(s): K21.9 - GASTRO-ESOPHAGEAL REFLUX DISEASE WITHOUT ESOPHAGITIS Comment : - Continue pantoprazole (14) BPH (benign prostatic hypertrophy) Code(s): N40.0 - BENIGN PROSTATIC HYPERPLASIA WITHOUT LOWER URINRY TRACT SYMP Comment: - Continue tamsulosin (15) DVT prophylaxis Comment: - Heparin SQ (16) Full code status Code(s): Z78.9 - OTHER SPECIFIED HEALTH STATUS Comment: Status and Disposition: Inpatient. Anticipate d/c home vs [facility] when medically stable. Attending: Harmony Montero
[2019-03-04 15:44] LABS: % Iron Saturation 13 % (15-55); Iron 36 ug/dL (50-212); Total Iron Binding Capacity 284 mcg/dL (250-450); Transferrin 203 mg/dL (203-362)
[2019-03-04 16:12] LABS: Ferritin 64.3 ng/mL (24-336)
[2019-03-04] MEDS: Magnesium Oxide TAB* 400 MG PO SCH (16:49)
[2019-03-04] MEDS: Insulin GLARGINE(*) 1 UNITS UNIT SUBCUT SCH (21:14)
[2019-03-04] MEDS: Mirtazapine TAB* 15 MG PO SCH (21:15)
[2019-03-05] MEDS: ZOSYN 3.375 GM Q8H per EXTENDED INFUSION IVPB SCH ×6 (01:16→17:07)
[2019-03-05] MEDS: Heparin VIAL(*) 5000 UNITS/ML VIAL (FIVE THOUSAND) SUBCUT SCH ×3 (05:20→22:26)
[2019-03-05] MEDS: oxyCODONE TAB* 5 MG TAB PO PRN ×3 (05:31→22:57)
[2019-03-05 05:46] LABS: Hematocrit 33 % (42-52); Mean Corpuscular HGB Conc 33 g/dL (31-36); Mean Corpuscular Hemoglobin 27 pg (27-31); Mean Corpuscular Volume 81 fL (80-94); Mean Platelet Volume 7.3 fL (7.4-10.4); Platelet Count 154 10^3/uL (150-450); Red Blood Count 4.12 10^6 /uL (4.18-5.48); Red Cell Distribution Width 15 % (10-15); White Blood Count 8.3 10^3/uL (3.5-10.8)
[2019-03-05 05:56] LABS: BUN/Creatinine Ratio 14.6 (8-20); Calcium 9.5 mg/dL (8.6-10.3); EGFR African American 46.1 (>60); EGFR Non-African American 38.1 (>60); Magnesium 2.3 mg/dL (1.9-2.7); Potassium 3.9 mmol/L (3.5-5.0)
[2019-03-05] MEDS: Tiotropium CAPSULE (NF) 1 CAP/18 MCG CAP.INH INH SCH (08:01)
[2019-03-05] MEDS: Mometasone/Formoter 200/5 MDI INH SCH ×2 (08:01→19:21)
[2019-03-05] MEDS: Acetaminophen TAB* 325 MG PO PRN (08:36)
[2019-03-05] MEDS: Pregabalin CAP(*) 50 MG PO SCH ×3 (08:37→20:11)
[2019-03-05] MEDS: Furosemide TAB* 40 MG PO SCH (08:37)
[2019-03-05] MEDS: Multivitamins/Minerals TAB PO SCH ×2 (08:37→20:48)
[2019-03-05] MEDS: Atorvastatin* 10 MG TAB PO SCH (08:37)
[2019-03-05] MEDS: amLODIPine TAB* 5 MG PO SCH (08:37)
[2019-03-05] MEDS: Montelukast Sodium TAB* 10 MG PO SCH (08:38)
[2019-03-05] MEDS: Aspirin EC TAB* 81 MG TAB.EC PO SCH (08:38)
[2019-03-05] MEDS: Sertraline* 25 MG TAB PO SCH (08:38)
[2019-03-05] MEDS: Pantoprazole TAB * 40 MG TAB PO SCH (08:38)
[2019-03-05] MEDS: Tamsulosin CAP* 0.4 MG PO SCH (08:38)
[2019-03-05] MEDS: Insulin LISPRO* 1 UNITS UNIT SUBCUT SCH ×4 (09:31→20:42)
[2019-03-05] MEDS: Magnesium Oxide TAB* 400 MG PO SCH (09:32)
[2019-03-05] MEDS: CMC:Minocycline (NF) 50 MG CAP PO SCH ×2 (09:39→20:13)
--- NOTE | 2019-03-05 14:56 | PN ---
Subjective Date of Service: 03/05/19 Interval History: Mr. Knox is feeling better today. He does c/o head and sacral pain. He attributes this to falls he had prior to admission when he hit the back of his head and his sacrum. He is agreeable to rehab, but would like to go to the [place] [facility]. Denies CP, SOB. No concerns from nursing, but RN reports that patient has expressed concern regarding hyperglycemia. Family History: Unchanged from Admission Social History: Unchanged from Admission Past Medical History: Unchanged from Admission Objective Active Medications: Acetaminophen (Tylenol Tab*) 650 mg PO Q4H PRN PAIN - MILD Albuterol (Ventolin Hfa Inhaler*) 4 puff INH Q4H PRN SOB/WHEEZING Albuterol/Ipratropium (Duoneb (Albuterol 2.5 Mg/Ipratropium 0.5 Mg)) 1 neb INH Q6H PRN SOB/WHEEZING Amlodipine Besylate (Norvasc Tab*) 5 mg PO DAILY [facility] Aspirin (Aspirin Ec Tab*) 81 mg PO DAILY [facility] Atorvastatin Calcium (Lipitor*) 10 mg PO DAILY [facility] Buspirone HCl (Buspar Tab*) 10 mg PO BID PRN ANXIETY Dextrose (Dextrose 50% Vial 50 Ml*) 25 ml IV PUSH .FOR FS < 60 - SS PRN FS < 60 Furosemide (Lasix Tab*) 40 mg PO DAILY [facility] Heparin Sodium (Porcine) (Heparin Vial(*)) 5,000 units SUBCUT Q8HR [facility] Piperacillin Sod/Tazobactam (Sod 3.375 gm/ Sodium Chloride) 100 mls @ 25 mls/ hr IVPB Q8H [facility] Insulin Glargine (Lantus(*)) 25 units SUBCUT BEDTIME [facility] Insulin Human Lispro (Humalog*) 0 units SUBCUT ACHS [facility]; Protocol Magnesium Oxide (Magox 400 Tab*) 800 mg PO DAILY [facility] Minocycline HCl (Minocycline (Nf)) 100 mg PO BID [facility] Mirtazapine (Remeron Tab*) 30 mg PO BEDTIME [facility] Mometasone Furoate/Formoterol Fumar (Dulera 200/5 Mdi*) 2 puff INH BID [facility]; Protocol Montelukast Sodium (Singulair Tab*) 10 mg PO DAILY [facility] Multivitamins/Minerals (Theragran/Minerals Tab*) 1 tab PO BID [facility] Oxycodone HCl (Roxycodone Tab*) 5 mg PO Q8H PRN PAIN - SEVERE Pantoprazole Sodium (Protonix Tab*) 40 mg PO DAILY [facility] Pregabalin (Lyrica Cap(*)) 50 mg PO TID [facility] Sertraline HCl (Zoloft*) 25 mg PO DAILY [facility] Tamsulosin HCl (Flomax Cap*) 0.4 mg PO DAILY [facility] Tiotropium [place] (Spiriva Cap.Inh*) 1 cap INH DAILY [facility] Vital Signs - 8 hr 03/05/19 03/05/19 03/05/19 07:00 07:30 08:00 Temperature 97.2 F Pulse Rate 83 Respiratory 18 17 17 Rate Blood Pressure 131/63 (mmHg) O2 Sat by Pulse 99 99 Oximetry 03/05/19 03/05/19 03/05/19 08:02 08:37 10:20 Temperature Pulse Rate 85 Respiratory 16 17 17 Rate Blood Pressure (mmHg) O2 Sat by Pulse 97 Oximetry 03/05/19 03/05/19 03/05/19 11:17 13:28 13:32 Temperature 97.1 F Pulse Rate 89 Respiratory 18 16 17 Rate Blood Pressure 122/63 (mmHg) O2 Sat by Pulse 98 Oximetry Oxygen Devices in Use Now: Nasal Cannula - 2L Appearance: Elderly male sitting in chair in NAD Eyes: No Scleral Icterus Ears/Nose/Mouth/Throat: Mucous Membranes Moist Neck: NL Appearance and Movements; NL JVP, Trachea Midline Respiratory: Symmetrical Chest Expansion and Respiratory Effort, Clear to Auscultation Cardiovascular: NL Sounds; No Murmurs; No JVD, RRR Abdominal: NL Sounds; No Tenderness; No Distention Neurological: Alert and Oriented x 3 Lines/Tubes/Other Access: Clean, Dry and Intact Central Line Nutrition: Taking PO's Result Diagrams: 03/05/19 05:25 03/05/19 05:25 Assess/Plan/Problems-Billing Assessment: Mr. Knox is a 69 yo M with PMH of gait dysfunction, falls, DM, and chronic pain, that presented with somnolence and what appears to be unintentional overdose of home narcotic prescriptions, requiring intubation. - Patient Problems (1) Narcotic overdose Code(s): T40.601A - POISONING BY UNSP NARCOTICS, ACCIDENTAL, INIT Comment: - Unintentional - Failed Narcan administration and required intubation - Extubated 03/01 and downgraded from ICU - Patient normally on Oxycontin, oxycodone, Lyrica - Possible aspiration pneumonitis d/t airway compromise - Continue Zosyn (day 12/03) (2) Altered mental status Code(s): R41.82 - ALTERED MENTAL STATUS, UNSPECIFIED Comment: - Now improved - Hold pain medications for sedation (3) Fall Comment: - Likely multifactorial: PVD, neuropathy, polypharmacy, obesity, deconditioning - Head CT negative - Appreciate Neuro consult; workup pending - PT indicates he could benefit from skilled PT, but he is refusing; will reassess tomorrow (4) Chronic pain Code(s): G89.29 - OTHER CHRONIC PAIN Comment: - Hold Oxycontin - Continue oxycodone (decreased from home dose), Lyrica (5) COPD (chronic obstructive pulmonary disease) Code(s): J44.9 - CHRONIC OBSTRUCTIVE PULMONARY DISEASE, UNSPECIFIED Comment: - O2 NC - Pulmonary toileting - Continue albuterol, Spiriva, Dulera (6) Type 2 diabetes mellitus Comment: - Poor control, BG 200s - Continue Lantus, Lispro SS (7) Hypertension Code(s): I10 - ESSENTIAL (PRIMARY) HYPERTENSION Comment: - Normotensive, SBP 120-130s - Continue amlodipine, furosemide (8) Anxiety and depression Code(s): F41.9 - ANXIETY DISORDER, UNSPECIFIED; F32.9 - MAJOR DEPRESSIVE DISORDER, SINGLE EPISODE, UNSPECIFIED Comment: - Continue sertraline, mirtazapine, buspirone (9) Hyperlipidemia Code(s): E78.5 - HYPERLIPIDEMIA, UNSPECIFIED Comment: - Continue simvastatin (10) CKD (chronic kidney disease), stage III Code(s): N18.3 - CHRONIC KIDNEY DISEASE, STAGE 3 (MODERATE) Comment: - Creatinine at baseline (11) Anemia Code(s): D64.9 - ANEMIA, UNSPECIFIED Comment: - H&H stable - Previously iron deficient - Suspect ID and anemia of chronic disease 2/2 CKD - Pending iron studies (12) CAD (coronary artery disease) Code(s): I25.10 - ATHSCL HEART DISEASE OF [place] CORONARY ARTERY W/O ANG PCTRS Comment: - Continue aspirin, atorvastatin (13) GERD (gastroesophageal reflux disease) Code(s): K21.9 - GASTRO-ESOPHAGEAL REFLUX DISEASE WITHOUT ESOPHAGITIS Comment : - Continue pantoprazole (14) BPH (benign prostatic hypertrophy) Code(s): N40.0 - BENIGN PROSTATIC HYPERPLASIA WITHOUT LOWER URINRY TRACT SYMP Comment: - Continue tamsulosin (15) DVT prophylaxis Comment: - Heparin SQ (16) Full code status Code(s): Z78.9 - OTHER SPECIFIED HEALTH STATUS Comment: Status and Disposition: Inpatient. Anticipate d/c to [facility]. Attending: Joy Love
[2019-03-05] MEDS: Mirtazapine TAB* 15 MG PO SCH (20:12)
[2019-03-05] MEDS: Insulin GLARGINE(*) 1 UNITS UNIT SUBCUT SCH (20:41)
[2019-03-06] MEDS: Heparin VIAL(*) 5000 UNITS/ML VIAL (FIVE THOUSAND) SUBCUT SCH ×3 (06:49→22:36)
[2019-03-06] MEDS: oxyCODONE TAB* 5 MG TAB PO PRN ×2 (07:53→16:33)
[2019-03-06 07:57] LABS: Hematocrit 32 % (42-52); Hemoglobin 10.8 g/dL (14.0-18.0); Mean Corpuscular HGB Conc 34 g/dL (31-36); Mean Corpuscular Hemoglobin 28 pg (27-31); Mean Corpuscular Volume 81 fL (80-94); Mean Platelet Volume 7.9 fL (7.4-10.4); Platelet Count 149 10^3/uL (150-450); Red Blood Count 3.92 10^6 /uL (4.18-5.48); Red Cell Distribution Width 15 % (10-15); White Blood Count 8.2 10^3/uL (3.5-10.8)
[2019-03-06 08:05] LABS: BUN/Creatinine Ratio 19.9 (8-20); Calcium 9.3 mg/dL (8.6-10.3); EGFR African American 46.7 (>60); EGFR Non-African American 38.6 (>60); Potassium 3.9 mmol/L (3.5-5.0)
[2019-03-06] MEDS: Montelukast Sodium TAB* 10 MG PO SCH (08:20)
[2019-03-06] MEDS: amLODIPine TAB* 5 MG PO SCH (08:20)
[2019-03-06] MEDS: Furosemide TAB* 40 MG PO SCH (08:20)
[2019-03-06] MEDS: Atorvastatin* 10 MG TAB PO SCH (08:20)
[2019-03-06] MEDS: Insulin LISPRO* 1 UNITS UNIT SUBCUT SCH ×4 (08:20→22:36)
[2019-03-06] MEDS: Sertraline* 25 MG TAB PO SCH (08:20)
[2019-03-06] MEDS: Tamsulosin CAP* 0.4 MG PO SCH (08:21)
[2019-03-06] MEDS: Magnesium Oxide TAB* 400 MG PO SCH (08:21)
[2019-03-06] MEDS: Aspirin EC TAB* 81 MG TAB.EC PO SCH (08:21)
[2019-03-06] MEDS: Multivitamins/Minerals TAB PO SCH ×2 (08:21→22:37)
[2019-03-06] MEDS: Pregabalin CAP(*) 50 MG PO SCH ×3 (08:21→22:39)
[2019-03-06] MEDS: Pantoprazole TAB * 40 MG TAB PO SCH (08:21)
[2019-03-06] MEDS: Tiotropium CAPSULE (NF) 1 CAP/18 MCG CAP.INH INH SCH (08:41)
[2019-03-06] MEDS: Mometasone/Formoter 200/5 MDI INH SCH ×2 (08:42→20:41)
[2019-03-06 10:16] LABS: Acylcarn/Free Carnitine Ratio 0.4 (0.1-0.8)
[2019-03-06] MEDS: Acetaminophen TAB* 325 MG PO PRN ×3 (10:45→23:25)
[2019-03-06] MEDS: CMC:Minocycline (NF) 50 MG CAP PO SCH ×2 (10:45→22:39)
[2019-03-06 12:09] LABS: Magnesium 2.1 mg/dL (1.9-2.7); Phosphorus 3.3 mg/dL (2.5-5.0)
--- NOTE | 2019-03-06 14:04 | PN ---
Subjective Date of Service: 03/06/19 Interval History: Mr. Knox is still having pain this morning. He reports generalized pain, consistent with his baseline. He would like to go back on his home meds. Denies CP, SOB, N/V. No concerns from nursing. Family History: Unchanged from Admission Social History: Unchanged from Admission Past Medical History: Unchanged from Admission Objective Active Medications: Acetaminophen (Tylenol Tab*) 650 mg PO Q4H PRN PAIN - MILD Albuterol (Ventolin Hfa Inhaler*) 4 puff INH Q4H PRN SOB/WHEEZING Albuterol/Ipratropium (Duoneb (Albuterol 2.5 Mg/Ipratropium 0.5 Mg)) 1 neb INH Q6H PRN SOB/WHEEZING Amlodipine Besylate (Norvasc Tab*) 5 mg PO DAILY [facility] Aspirin (Aspirin Ec Tab*) 81 mg PO DAILY [facility] Atorvastatin Calcium (Lipitor*) 10 mg PO DAILY [facility] Buspirone HCl (Buspar Tab*) 10 mg PO BID PRN ANXIETY Dextrose (Dextrose 50% Vial 50 Ml*) 25 ml IV PUSH .FOR FS < 60 - SS PRN FS < 60 Furosemide (Lasix Tab*) 40 mg PO DAILY COUNTS INCLUDE 234 BEDS AT THE [facility] Heparin Sodium (Porcine) (Heparin Vial(*)) 5,000 units SUBCUT Q8HR COUNTS INCLUDE 234 BEDS AT THE [facility] Insulin Glargine (Lantus(*)) 25 units SUBCUT BEDTIME [facility] Insulin Human Lispro (Humalog*) 0 units SUBCUT ACHS COUNTS INCLUDE 234 BEDS AT THE [facility]; Protocol Magnesium Oxide (Magox 400 Tab*) 800 mg PO DAILY COUNTS INCLUDE 234 BEDS AT THE [facility] Minocycline HCl (Minocycline (Nf)) 100 mg PO BID COUNTS INCLUDE 234 BEDS AT THE [facility] Mirtazapine (Remeron Tab*) 30 mg PO BEDTIME [facility] Mometasone Furoate/Formoterol Fumar (Dulera 200/5 Mdi*) 2 puff INH BID COUNTS INCLUDE 234 BEDS AT THE [facility]; Protocol Montelukast Sodium (Singulair Tab*) 10 mg PO DAILY COUNTS INCLUDE 234 BEDS AT THE [facility] Multivitamins/Minerals (Theragran/Minerals Tab*) 1 tab PO BID COUNTS INCLUDE 234 BEDS AT THE [facility] Oxycodone HCl (Roxycodone Tab*) 5 mg PO Q8H PRN PAIN - SEVERE Pantoprazole Sodium (Protonix Tab*) 40 mg PO DAILY COUNTS INCLUDE 234 BEDS AT THE [facility] Pregabalin (Lyrica Cap(*)) 50 mg PO TID COUNTS INCLUDE 234 BEDS AT THE [facility] Sertraline HCl (Zoloft*) 25 mg PO DAILY COUNTS INCLUDE 234 BEDS AT THE [facility] Tamsulosin HCl (Flomax Cap*) 0.4 mg PO DAILY COUNTS INCLUDE 234 BEDS AT THE [facility] Tiotropium [place] (Spiriva Cap.Inh*) 1 cap INH DAILY COUNTS INCLUDE 234 BEDS AT THE [facility] Vital Signs - 8 hr 03/06/19 03/06/19 03/06/19 07:00 07:53 08:21 Temperature 98.3 F Pulse Rate 79 Respiratory 18 20 18 Rate Blood Pressure 139/58 (mmHg) O2 Sat by Pulse 96 Oximetry 03/06/19 03/06/19 08:43 13:25 Temperature Pulse Rate 78 Respiratory 16 18 Rate Blood Pressure (mmHg) O2 Sat by Pulse 98 Oximetry Oxygen Devices in Use Now: Nasal Cannula - 2L Appearance: Elderly male sitting in chair in NAD Eyes: No Scleral Icterus Ears/Nose/Mouth/Throat: Mucous Membranes Moist Neck: NL Appearance and Movements; NL JVP, Trachea Midline Respiratory: Symmetrical Chest Expansion and Respiratory Effort, Clear to Auscultation Cardiovascular: NL Sounds; No Murmurs; No JVD, RRR Abdominal: NL Sounds; No Tenderness; No Distention Extremities: No Edema Neurological: Alert and Oriented x 3 Lines/Tubes/Other Access: Clean, Dry and Intact Peripheral IV Nutrition: Taking PO's Result Diagrams: 03/06/19 06:45 03/06/19 06:45 Assess/Plan/Problems-Billing Assessment: Mr. Knox is a 69 yo M with PMH of gait dysfunction, falls, DM, and chronic pain, that presented with somnolence and what appears to be unintentional overdose of home narcotic prescriptions, requiring intubation. - Patient Problems (1) Narcotic overdose Code(s): T40.601A - POISONING BY UNSP NARCOTICS, ACCIDENTAL, INIT Comment: - Unintentional; reports taking his morning and afternoon medications together - Failed Narcan administration and required intubation - Extubated 03/01 and downgraded from ICU - Patient normally on Oxycontin, oxycodone, Lyrica - Possible aspiration pneumonitis d/t airway compromise; completed course of Zosyn (2) Altered mental status Code(s): R41.82 - ALTERED MENTAL STATUS, UNSPECIFIED Comment: - Now improved - Hold pain medications for sedation (3) Fall Comment: - Likely multifactorial: PVD, neuropathy, polypharmacy, obesity, deconditioning - Head CT negative - Appreciate Neuro consult; workup pending - PT indicates he could benefit from skilled PT (4) Chronic pain Code(s): G89.29 - OTHER CHRONIC PAIN Comment: - Patient reports he has been on the same pain medications for approx 6 years - Continue oxycodone (decreased from home dose), Lyrica; resume Oxycontin (5) COPD (chronic obstructive pulmonary disease) Code(s): J44.9 - CHRONIC OBSTRUCTIVE PULMONARY DISEASE, UNSPECIFIED Comment: - O2 NC - Pulmonary toileting - Continue albuterol, Spiriva, Dulera (6) Type 2 diabetes mellitus Comment: - Poor control, BG 200s - Continue Lispro SS; increase Lantus (7) Hypertension Code(s): I10 - ESSENTIAL (PRIMARY) HYPERTENSION Comment: - Normotensive, SBP 130-140s - Continue amlodipine, furosemide (8) Anxiety and depression Code(s): F41.9 - ANXIETY DISORDER, UNSPECIFIED; F32.9 - MAJOR DEPRESSIVE DISORDER, SINGLE EPISODE, UNSPECIFIED Comment: - Continue sertraline, mirtazapine, buspirone (9) Hyperlipidemia Code(s): E78.5 - HYPERLIPIDEMIA, UNSPECIFIED Comment: - Continue simvastatin (10) CKD (chronic kidney disease), stage III Code(s): N18.3 - CHRONIC KIDNEY DISEASE, STAGE 3 (MODERATE) Comment: - Creatinine at baseline (11) Anemia Code(s): D64.9 - ANEMIA, UNSPECIFIED Comment: - H&H stable - Previously iron deficient - Suspect ID and anemia of chronic disease 2/2 CKD (12) CAD (coronary artery disease) Code(s): I25.10 - ATHSCL HEART DISEASE OF [place] CORONARY ARTERY W/O ANG PCTRS Comment: - Continue aspirin, atorvastatin (13) GERD (gastroesophageal reflux disease) Code(s): K21.9 - GASTRO-ESOPHAGEAL REFLUX DISEASE WITHOUT ESOPHAGITIS Comment : - Continue pantoprazole (14) BPH (benign prostatic hypertrophy) Code(s): N40.0 - BENIGN PROSTATIC HYPERPLASIA WITHOUT LOWER URINRY TRACT SYMP Comment: - Continue tamsulosin (15) DVT prophylaxis Comment: - Heparin SQ (16) Full code status Code(s): Z78.9 - OTHER SPECIFIED HEALTH STATUS Comment: Status and Disposition: Inpatient. Anticipate d/c to [facility] when bed available. Attending: Joy Love
[2019-03-06] MEDS: Insulin GLARGINE(*) 1 UNITS UNIT SUBCUT SCH (22:35)
[2019-03-06] MEDS: oxyCODONE SR TAB(*) 10 MG TAB.SR PO SCH (22:37)
[2019-03-06] MEDS: Mirtazapine TAB* 15 MG PO SCH (22:38)
[2019-03-07] MEDS: Heparin VIAL(*) 5000 UNITS/ML VIAL (FIVE THOUSAND) SUBCUT SCH ×3 (05:29→21:55)
[2019-03-07] MEDS: oxyCODONE TAB* 5 MG TAB PO PRN ×3 (05:30→23:39)
[2019-03-07] MEDS: Mometasone/Formoter 200/5 MDI INH SCH ×2 (07:30→19:12)
[2019-03-07] MEDS: Tiotropium CAPSULE (NF) 1 CAP/18 MCG CAP.INH INH SCH (07:32)
[2019-03-07] MEDS: Insulin LISPRO* 1 UNITS UNIT SUBCUT SCH ×4 (09:11→21:58)
[2019-03-07] MEDS: Pantoprazole TAB * 40 MG TAB PO SCH (09:12)
[2019-03-07] MEDS: Montelukast Sodium TAB* 10 MG PO SCH (09:12)
[2019-03-07] MEDS: Tamsulosin CAP* 0.4 MG PO SCH (09:12)
[2019-03-07] MEDS: Pregabalin CAP(*) 50 MG PO SCH ×3 (09:12→21:57)
[2019-03-07] MEDS: amLODIPine TAB* 5 MG PO SCH (09:12)
[2019-03-07] MEDS: Furosemide TAB* 40 MG PO SCH (09:12)
[2019-03-07] MEDS: Sertraline* 25 MG TAB PO SCH (09:12)
[2019-03-07] MEDS: Multivitamins/Minerals TAB PO SCH ×2 (09:13→21:54)
[2019-03-07] MEDS: Magnesium Oxide TAB* 400 MG PO SCH (09:13)
[2019-03-07] MEDS: Atorvastatin* 10 MG TAB PO SCH (09:13)
[2019-03-07] MEDS: Aspirin EC TAB* 81 MG TAB.EC PO SCH (09:13)
[2019-03-07] MEDS: Acetaminophen TAB* 325 MG PO PRN ×2 (09:27→17:43)
[2019-03-07] MEDS: CMC:Minocycline (NF) 50 MG CAP PO SCH (09:28)
[2019-03-07] MEDS: oxyCODONE SR TAB(*) 10 MG TAB.SR PO SCH ×2 (09:28→22:00)
[2019-03-07 12:22] LABS: Hematocrit 32 % (42-52); Mean Corpuscular HGB Conc 34 g/dL (31-36); Mean Corpuscular Hemoglobin 27 pg (27-31); Mean Corpuscular Volume 81 fL (80-94); Mean Platelet Volume 8.3 fL (7.4-10.4); Platelet Count 166 10^3/uL (150-450); Red Blood Count 3.99 10^6 /uL (4.18-5.48); Red Cell Distribution Width 15 % (10-15)
[2019-03-07 12:32] LABS: BUN/Creatinine Ratio 19.9 (8-20); Calcium 9.4 mg/dL (8.6-10.3); EGFR African American 55.7 (>60); Potassium 3.9 mmol/L (3.5-5.0)
--- NOTE | 2019-03-07 16:20 | PN ---
Subjective Date of Service: 03/07/19 Interval History: Patient today is feeling better, he has no pain and feels like his strength is improving. Patient is still requiring a 2-assist to get up and needs to walk down a hallway in his house. Patient and relate that his falls began approximately 2 weeks before admission and that was around the time he was started on Minocycline from Doxycycline with concern for poor control of RA. Family History: Unchanged from Admission Social History: Unchanged from Admission Past Medical History: Unchanged from Admission Objective Active Medications: Acetaminophen (Tylenol Tab*) 650 mg PO Q4H PRN PRN Reason: PAIN - MILD Last Admin: 03/07/19 09:27 Dose: 650 mg Albuterol (Ventolin Hfa Inhaler*) 4 puff INH Q4H PRN PRN Reason: SOB/WHEEZING Albuterol/Ipratropium (Duoneb (Albuterol 2.5 Mg/Ipratropium 0.5 Mg)) 1 neb INH Q6H PRN PRN Reason: SOB/WHEEZING Amlodipine Besylate (Norvasc Tab*) 5 mg PO DAILY [facility] Last Admin: 03/07/19 09:12 Dose: 5 mg Aspirin (Aspirin Ec Tab*) 81 mg PO DAILY [facility] Last Admin: 03/07/19 09:13 Dose: 81 mg Atorvastatin Calcium (Lipitor*) 10 mg PO DAILY [facility] Last Admin: 03/07/19 09:13 Dose: 10 mg Buspirone HCl (Buspar Tab*) 10 mg PO BID PRN PRN Reason: ANXIETY Last Admin: 03/03/19 19:25 Dose: 10 mg Dextrose (Dextrose 50% Vial 50 Ml*) 25 ml IV PUSH .FOR FS < 60 - SS PRN PRN Reason: FS < 60 Doxycycline Hyclate (Vibramycin Cap(*)) 100 mg PO BID [facility] Furosemide (Lasix Tab*) 40 mg PO DAILY [facility] Last Admin: 03/07/19 09:12 Dose: 40 mg Heparin Sodium (Porcine) (Heparin Vial(*)) 5,000 units SUBCUT Q8HR [facility] Last Admin: 03/07/19 13:51 Dose: 5,000 units Insulin Glargine (Lantus(*)) 30 units SUBCUT BEDTIME [facility] Last Admin: 03/06/19 22:35 Dose: 30 unit Insulin Human Lispro (Humalog*) 0 units SUBCUT ACHS [facility]; Protocol Last Admin: 03/07/19 13:50 Dose: 9 units Magnesium Oxide (Magox 400 Tab*) 800 mg PO DAILY@0600 [facility] Mirtazapine (Remeron Tab*) 30 mg PO BEDTIME [facility] Last Admin: 03/06/19 22:38 Dose: 30 mg Mometasone Furoate/Formoterol Fumar (Dulera 200/5 Mdi*) 2 puff INH BID [facility]; Protocol Last Admin: 03/07/19 07:30 Dose: 2 puff Montelukast Sodium (Singulair Tab*) 10 mg PO DAILY [facility] Last Admin: 03/07/19 09:12 Dose: 10 mg Multivitamins/Minerals (Theragran/Minerals Tab*) 1 tab PO BID [facility] Last Admin: 03/07/19 09:13 Dose: 1 tab Oxycodone HCl (Oxycontin(*)) 10 mg PO BID [facility] Last Admin: 03/07/19 09:28 Dose: 10 mg Oxycodone HCl (Roxycodone Tab*) 5 mg PO Q6H PRN PRN Reason: PAIN - SEVERE Last Admin: 03/07/19 13:51 Dose: 5 mg Pantoprazole Sodium (Protonix Tab*) 40 mg PO DAILY [facility] Last Admin: 03/07/19 09:12 Dose: 40 mg Pregabalin (Lyrica Cap(*)) 50 mg PO TID [facility] Last Admin: 03/07/19 13:49 Dose: 50 mg Sertraline HCl (Zoloft*) 25 mg PO DAILY [facility] Last Admin: 03/07/19 09:12 Dose: 25 mg Tamsulosin HCl (Flomax Cap*) 0.4 mg PO DAILY [facility] Last Admin: 03/07/19 09:12 Dose: 0.4 mg Tiotropium [place] (Spiriva Cap.Inh*) 1 cap INH DAILY [facility] Last Admin: 03/07/19 07:32 Dose: 1 cap Vital Signs - 8 hr 03/07/19 03/07/19 03/07/19 08:30 08:31 09:12 Temperature Pulse Rate Respiratory 18 16 16 Rate Blood Pressure (mmHg) O2 Sat by Pulse Oximetry 03/07/19 03/07/19 03/07/19 09:28 11:00 12:03 Temperature 97.2 F Pulse Rate 75 Respiratory 16 20 18 Rate Blood Pressure 128/57 (mmHg) O2 Sat by Pulse 100 Oximetry 03/07/19 03/07/19 03/07/19 13:17 13:49 13:51 Temperature Pulse Rate Respiratory 16 18 18 Rate Blood Pressure (mmHg) O2 Sat by Pulse Oximetry Oxygen Devices in Use Now: Nasal Cannula Appearance: Patient is a 69yo male who appears stated age and is sitting in the bed in [facility]. Eyes: No Scleral Icterus, PERRLA Ears/Nose/Mouth/Throat: NL Teeth, Lips, Gums, Clear Oropharnyx, Mucous Membranes Moist Neck: NL Appearance and Movements; NL JVP, Trachea Midline Respiratory: Symmetrical Chest Expansion and Respiratory Effort, Clear to Auscultation Cardiovascular: NL Sounds; No Murmurs; No JVD, RRR, No Edema Abdominal: NL Sounds; No Tenderness; No Distention, No Hepatosplenomegaly Lymphatic: No Cervical Adenopathy Extremities: No Clubbing, Cyanosis, - - Chronic Venous Stasis Changes, Poor Muscle Mass, Forefoot Amputations. 1+ Pulses, no wounds. Skin: No Nodules or Sclerosis Neurological: Alert and Oriented x 3, - - Poor Strength in Arms and Legs. Diminished sensation in feet. Muscle wasting in hands. Result Diagrams: 03/07/19 09:40 03/07/19 09:40 Microbiology and Other Data: Microbiology 02/28/19 22:14 Aerobic Blood Culture - Preliminary Blood Venous No Growth Day 1 Anaerobic Blood Culture - Preliminary No Growth Day 1 02/28/19 20:56 Aerobic Blood Culture - Preliminary Blood Venous No Growth Day 1 Anaerobic Blood Culture - Preliminary No Growth Day 1 02/28/19 20:46 Legionella Urinary Antigen - Final Urine Negative Legionella Antigen Streptococcus pneumoniae Ag Screen - Final Negative S. pneumo Antigen 03/01/19 00:30 Nasal Screen MRSA (PCR) - Final Nasal Mrsa Not Detected Assess/Plan/Problems-Billing Assessment: Mr. Knox is a 69 yo M with PMH of gait dysfunction, falls, DM, and chronic pain, that presented with somnolence and what appears to be unintentional overdose of home narcotic prescriptions, requiring intubation. Patient is now improving but is very deconditioned and may need rehab. - Patient Problems (1) Fall Current Visit: No Status: Acute Priority: High Onset Date: 04/09/15 Comment: - Likely multifactorial: PVD, neuropathy, polypharmacy, obesity, deconditioning - Head CT negative - Appreciate Neuro consult; workup pending - Improving with PT. (2) Weakness Current Visit: Yes Status: Acute Code(s): R53.1 - WEAKNESS SNOMED Code(s) : 51411839 Comment: - Acute on Chronic, Improving with PT - Distal Muscle Wasting and ? Fasiculations - Possibly due to RA, though should follow up with full evaluation with Neurology for consultation and EMG - Extensive Neurologic workup pending. (3) Narcotic overdose Current Visit: Yes Status: Acute Code(s): T40.601A - POISONING BY UNSP NARCOTICS, ACCIDENTAL, INIT SNOMED Code(s): 076896364 Comment: - Unintentional; reports taking his morning and afternoon medications together - Failed Narcan administration and required intubation - Extubated 03/01 and downgraded from ICU - Patient normally on Oxycontin, oxycodone, Lyrica - Possible aspiration pneumonitis d/t airway compromise; completed course of Zosyn - Given chronicity of weakness and falls, corresponds to initiation of Minocycline which has warning for potentiating [employer] depressants. - Transition Minocycline back to Doxycycline and F/U Rheum. (4) Type 2 diabetes mellitus Current Visit: No Status: Chronic Priority: High Comment: - Poor control, BG 200s - Continue Lispro SS; increase Lantus (5) Anxiety and depression Current Visit: Yes Status: Acute Code(s): F41.9 - ANXIETY DISORDER, UNSPECIFIED; F32.9 - MAJOR DEPRESSIVE DISORDER, SINGLE EPISODE, UNSPECIFIED SNOMED Code(s): 777102949 Comment: - Continue sertraline, mirtazapine, buspirone (6) CKD (chronic kidney disease), stage III Current Visit: Yes Status: Acute Code(s): N18.3 - CHRONIC KIDNEY DISEASE, STAGE 3 (MODERATE) SNOMED Code(s): 561253653 Comment: - Creatinine at baseline (7) Chronic pain Current Visit: Yes Status: Acute Code(s): G89.29 - OTHER CHRONIC PAIN SNOMED Code(s): 37370154 Comment: - Patient reports he has been on the same pain medications for approx 6 years - Back to Home dose on Pain meds. (8) Hypertension Current Visit: Yes Status: Acute Code(s): I10 - ESSENTIAL (PRIMARY) HYPERTENSION SNOMED Code(s): 72001682 Comment: - Normotensive, SBP 130-140s - Continue amlodipine, furosemide (9) Acute renal failure Current Visit: No Status: Acute Comment: Resolved. (10) Altered mental status Current Visit: No Status: Acute Priority: High Onset Date: 04/09/15 Code (s): R41.82 - ALTERED MENTAL STATUS, UNSPECIFIED SNOMED Code(s): 423218739 Comment: - Now improved - Hold pain medications if sedated. (11) Anemia Current Visit: No Status: Acute Priority: Medium Code(s): D64.9 - ANEMIA, UNSPECIFIED SNOMED Code(s): 511989931 Comment: - H&H stable - Previously iron deficient - Suspect ID and anemia of chronic disease 2/2 CKD (12) CAD (coronary artery disease) Current Visit: No Status: Acute Priority: Medium Code(s): I25.10 - ATHSCL HEART DISEASE OF [place] CORONARY ARTERY W/O ANG PCTRS SNOMED Code(s): 01174201 Comment: - Continue aspirin, atorvastatin (13) DVT prophylaxis Current Visit: No Status: Acute Priority: Medium Code(s): EDK2962 - SNOMED Code(s): 373856419 Comment: - Heparin SQ (14) Full code status Current Visit: No Status: Acute Code(s): Z78.9 - OTHER SPECIFIED HEALTH STATUS SNOMED Code(s): 382140528 Comment: Status and Disposition: Inpatient. Anticipate d/c to [facility] or home depending on PT course.
[2019-03-07] MEDS: Mirtazapine TAB* 15 MG PO SCH (21:54)
[2019-03-07] MEDS: DOXYcycline CAP(*) 100 MG PO SCH (21:56)
[2019-03-07] MEDS: Insulin GLARGINE(*) 1 UNITS UNIT SUBCUT SCH (21:59)
[2019-03-08] MEDS ORDERED: Magnesium Oxide TAB* 400 MG PO SCH (06:00)
[2019-03-08] MEDS: oxyCODONE TAB* 5 MG TAB PO PRN (06:20)
[2019-03-08] MEDS: Heparin VIAL(*) 5000 UNITS/ML VIAL (FIVE THOUSAND) SUBCUT SCH (06:21)
[2019-03-08 07:04] LABS: Hematocrit 32 % (42-52); Hemoglobin 10.8 g/dL (14.0-18.0); Mean Corpuscular HGB Conc 34 g/dL (31-36); Mean Corpuscular Hemoglobin 27 pg (27-31); Mean Corpuscular Volume 81 fL (80-94); Mean Platelet Volume 7.8 fL (7.4-10.4); Platelet Count 164 10^3/uL (150-450); Red Blood Count 3.94 10^6 /uL (4.18-5.48); Red Cell Distribution Width 15 % (10-15); White Blood Count 7.7 10^3/uL (3.5-10.8)
[2019-03-08 07:26] LABS: BUN/Creatinine Ratio 19.7 (8-20); Calcium 9.6 mg/dL (8.6-10.3); EGFR African American 59.8 (>60); EGFR Non-African American 49.4 (>60); Potassium 3.7 mmol/L (3.5-5.0)
[2019-03-08] MEDS: DOXYcycline CAP(*) 100 MG PO SCH (08:38)
[2019-03-08] MEDS: Atorvastatin* 10 MG TAB PO SCH (08:38)
[2019-03-08] MEDS: Insulin LISPRO* 1 UNITS UNIT SUBCUT SCH ×2 (08:38→12:25)
[2019-03-08] MEDS: Multivitamins/Minerals TAB PO SCH (08:38)
[2019-03-08] MEDS: Tamsulosin CAP* 0.4 MG PO SCH (08:39)
[2019-03-08] MEDS: Montelukast Sodium TAB* 10 MG PO SCH (08:39)
[2019-03-08] MEDS: oxyCODONE SR TAB(*) 10 MG TAB.SR PO SCH (08:39)
[2019-03-08] MEDS: Pantoprazole TAB * 40 MG TAB PO SCH (08:39)
[2019-03-08] MEDS: Furosemide TAB* 40 MG PO SCH (08:40)
[2019-03-08] MEDS: Sertraline* 25 MG TAB PO SCH (08:40)
[2019-03-08] MEDS: amLODIPine TAB* 5 MG PO SCH (08:40)
[2019-03-08] MEDS: Pregabalin CAP(*) 50 MG PO SCH (08:40)
[2019-03-08] MEDS: Aspirin EC TAB* 81 MG TAB.EC PO SCH (08:40)
[2019-03-08] MEDS: Mometasone/Formoter 200/5 MDI INH SCH (09:39)
[2019-03-08] MEDS: Tiotropium CAPSULE (NF) 1 CAP/18 MCG CAP.INH INH SCH (09:40)
[2019-03-08] MEDS: Acetaminophen TAB* 325 MG PO PRN (12:24)
[2019-03-08 16:31] VITALS: BP 134/61
--- NOTE | 2019-03-09 23:08 | DS ---
CC: Dr. Deonte Masters; Dr. Emmanuel Rosenthal * DISCHARGE SUMMARY: DATE OF ADMISSION: 02/28/19 DATE OF DISCHARGE: PRIMARY CARE PROVIDER: Dr. Deonte Masters. MY ATTENDING WHILE IN THE HOSPITAL: Dr. Joy Love * (DICTATED BY ESTRELLA CHACON) OUTPATIENT PUBLIC HEALTH EDUCATOR: Dr. Emmanuel Rosenthal. PRIMARY DISCHARGE DIAGNOSES: 1. Unintentional opiate overdose. 2. Falls. 3. Hypoxic respiratory failure, requiring intubation, now resolved. SECONDARY DISCHARGE DIAGNOSES: 1. Coronary artery disease. 2. Type 2 diabetes. 3. Rheumatoid arthritis. 4. Depression. 5. Peripheral neuropathy. 6. History of sarcoidosis. 7. History of lung cancer. 8. Chronic pain. 9. Hyperlipidemia. 10. Chronic obstructive pulmonary disease. 11. Pacemaker implantation. 12. 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 STUDIES DONE WHILE IN THE HOSPITAL: Brain CT from 02/28/19 read as posterior scalp contusion with intact subjacent calvarium. No acute intracranial abnormality. Mild cerebral volume loss. Chest, abdomen, and pelvis CT read as 2 mm nodules in the right lung apex, stable. Followup is clinically indicated. Increased interstitial markings in bilateral lungs, more prominent than prior exam. Small perihilar density extending into the right inferior lobe may represent developing mild pneumonia in the setting of fever, no evidence of pulmonary embolism. Mild fecal loading of the rectum with mild rectal wall thickening, thickening of the ascending colon and transverse colon without surrounding inflammatory change may represent colitis. Small bowel is unremarkable. Chest x-ray from 02/28/19 read as appropriate position tubes and lines with endotracheal tube 4 cm above the bibiana, nasogastric tip at the level of the gastric body. Right IJ venous catheter at the tip of the superior vena cava right atrial junction, pulmonary edema, ventricle worsening. MEDICATIONS AT DISCHARGE: 1. Tylenol 650 mg p.o. q.8 hours as needed. 2. Aspirin 81 mg p.o. daily. 3. Mirtazapine 30 mg p.o. at bedtime. 4. Insulin 30 to 35 units subcutaneous at bedtime. 5. Tiotropium 1 cap inhalation daily. 6. Tamsulosin 0.4 mg p.o. daily. 7. BuSpar 10 mg p.o. b.i.d. as needed. 8. Albuterol 2 puffs inhalation daily. 9. Omeprazole 20 mg p.o. daily. 10. Montelukast 10 mg p.o. daily. 11. Oxycodone 5 mg p.o. 4 times a day as needed. 12. Multivitamin 1 tab p.o. b.i.d. 13. [facility] 1 cap p.o. daily. 14. Magnesium oxide 800 mg p.o. daily. 15. Vitamin D 1000 units p.o. daily. 16. Sertraline 25 mg p.o. daily. 17. Pregabalin 50 mg p.o. t.i.d. 18. Insulin lispro 6 units subcutaneous with meals. 19. Symbicort 160/4.5, 2 puffs inhalation b.i.d. 20. Pioglitazone 50 mg p.o. daily. 21. Simvastatin 20 mg p.o. daily. 22. Oxycodone 10 mg p.o. b.i.d. 23. Furosemide 60 mg p.o. daily. 24. Amlodipine 5 mg p.o. daily. 25. Doxycycline 100 mg p.o. b.i.d. Medications discontinued at discharge: 1. Minocycline 100 mg p.o. b.i.d. New medications at discharge: 1. Amlodipine 5 mg p.o. daily. 2. Doxycycline 100 mg p.o. b.i.d. HOSPITAL COURSE: This is a brief summary of the patient's presentation. For more details, please the history and physical from Dr. Nathalie Prado on . In brief, the patient is a 69-year-old male with past medical history significant for the above, who presented to the emergency department after 2 weeks before his admission. He had been following more frequently at that time. The patient had been increasingly somnolent and had been taking extra doses of his oxycodone per some reports for the pain associated with his falls and baseline arthritis. The patient in the emergency department was lethargic and somnolent, unable to protect his airway. The patient was intubated at that time. The patient also had elevated troponin likely secondary to demand ischemia. The patient had studies done as above. The patient had no clinical symptoms to correlate with his evidence of colitis on the CT. The patient was seen in consultation while intubated by Dr. Yasmani Peres of Neurology, who ordered a rather broad differential for his weakness including B12, creatinine kinase, carnitine, paraneoplastic antibodies, myasthenia gravis antibodies, and ammonia level. The patient was able to be intubated on 03/02/19. The patient improved with regards to his strength throughout his hospitalization. The patient worked with PT and OT and improved but they are still concerned that the patient would not be able to return home. The patient's creatinine was slightly elevated above baseline and trended down throughout the hospitalization. The patient's minocycline was stopped while in the hospital and transitioned back to doxycycline as minocycline has been known to potentiate the [employer] depressant effects of opiates possibly contributing to his need for intubation. The patient was restarted on all of his pain medications and tolerated them well without any signs of somnolence, in fact his stated that she felt he was much more alert than he normally is. The risks and benefits of being discharged home were discussed with the patient on 03/08/19. He was offered rehab, which he refused. A plan was discussed with his for home PT, extra aide help, and avoidance of ambulation for the short-term in order to minimize the risk of falls. The patient was stable and amenable for discharge on 03/08/19. PHYSICAL EXAMINATION: General: The patient is a 69-year-old male who appears stated age and sitting comfortably in bed, in no acute distress. Vital Signs: At the time of evaluation, temperature 98.2, pulse rate 82, respiratory rate 14 , oxygen saturation 98% on 2 L, blood pressure 134/61. HEENT: Head normocephalic, atraumatic. Sclerae anicteric. No conjunctival injection. Nasal mucosa moist. Oral mucosa moist. No pharyngeal erythema, discharge, or exudate. Neck: Supple, nontender. No lymphadenopathy. No carotid bruits auscultated. No JVD. Cardiac: Regular rate and rhythm. No clicks, murmurs, gallops, or rubs. Pulses are 2+ in the bilateral dorsalis pedis, posterior tibialis, and radial areas. Respiratory: Clear to auscultation bilaterally. No wheezes, rales, or rhonchi. Good air exchange bilaterally. Abdomen: Soft, nontender, nondistended. Bowel sounds present and normoactive in all 4 quadrants. No hepatospleno-megaly. No abdominal bruits auscultated. No hepatojugular reflux. Genitourinary: No suprapubic or CVA tenderness. Skin: Chronic venous stasis changes in bilateral lower extremities. Forefeet absent bilaterally. Neuro: Cranial nerves II through XII intact. Muscle wasting and possible fasciculation to bilateral hands. Peripheral neuropathy in bilateral feet. Unstable gait. No other significant deficit. Psychiatric: Pleasant and cooperative. DISCHARGE PLAN: The patient will be discharged to home under the care of his with additional aide help, visiting nurse services. The patient should work with Physical Therapy and Occupational Therapy to help restore his functional status at home. As above, the patient is offered subacute rehab placement, which he refused. The patient's minocycline was stopped due to concern for potentiation of depression effects. The patient has been returned to his previous dosing of opiates, which has been controlling his pain relatively well. The patient has been restarted on doxycycline. He should follow up with his health analyst to discuss this change and discuss anti- inflammatory medications. The patient should follow up with his primary care provider for general medical management. The patient should follow up with Dr. Peres of Neurology within 1 month to discuss the result of his extensive workup for weakness and for possibly EMG nerve conduction studies given the muscle wasting and possible fasciculation in his hands, so this may just related to his rheumatoid arthritis. The patient should return to the hospital for high fevers, chest pain, severe shortness of breath, severe abdominal pain, oliguria, or other alarming symptoms. The patient should have a consistent carbohydrate diet, engage in activity as tolerated with working with PT and OT as above. The patient should resume his home antidiabetic regimen though should discuss the continuation of his pioglitazone with his primary care provider given his frequent falls and his propensity for causing osteoporosis. TIME SPENT: Approximately 75 minutes was spent on the discharge of this patient , 30 of which was spent [id number] obtaining history and physical and discussing treatment plan. ESTRELLA CHACON [id number]/CPS #: [id number] MTDD
[2019-03-13 17:02] LABS: Anti-Glial/Neuronal Nuc Ab-1 A Negative titer (<1:240); Anti-Neuronal Nuclear Ab Type1 Negative titer (<1:240); Anti-Neuronal Nuclear Ab Type2 Negative titer (<1:240); Anti-Neuronal Nuclear Ab Type3 Negative titer (<1:240); Anti-Striated Muscle Antibody Negative titer (<1:120); CRMP-5 IgG Antibody Negative titer (<1:240); Purkinje Cell Cytoplasm Typ Tr Negative titer (<1:240); Purkinje Cell Cytoplasm Type 1 Negative titer (<1:240); Purkinje Cell Cytoplasm Type 2 Negative titer (<1:240)
[2019-03-14 16:21] LABS: Anti-Striated Muscle Antibody Negative titer (<1:120)
== END 2019-03-08 17:10 | disposition home health service (06) | DRG 917 ==
LOC: ED 16:22 → ICU 23:54 → MED 03-01 18:26
PROVIDERS: ADMIT Hospitalist; ATTEND Internal Medicine
PROC: 0BH17EZ Insertion of Endotracheal Airway into Trachea, Via Natural or Artificial Opening (ICD-10-PCS; principal; 2019-02-28)
PROC: 5A1935Z Respiratory Ventilation, Less than 24 Consecutive Hours (ICD-10-PCS; 2019-02-28)
PROC: 02HV33Z Insertion of Infusion Device into Superior Vena Cava, Percutaneous Approach (ICD-10-PCS; 2019-02-28)
DX: T40.2X1A Poisoning by other opioids, accidental (unintentional), initial encounter (principal); J96.21 Acute and chronic respiratory failure with hypoxia; J18.1 Lobar pneumonia, unspecified organism; I44.2 Atrioventricular block, complete; Z68.41 Body mass index [BMI] 40.0-44.9, adult; N17.9 Acute kidney failure, unspecified; I24.8 Other forms of acute ischemic heart disease; I25.10 Atherosclerotic heart disease of native coronary artery without angina pectoris; E78.00 Pure hypercholesterolemia, unspecified; E11.22 Type 2 diabetes mellitus with diabetic chronic kidney disease; K21.9 Gastro-esophageal reflux disease without esophagitis; I12.9 Hypertensive chronic kidney disease with stage 1 through stage 4 chronic kidney disease, or unspecified chronic kidney disease; J44.9 Chronic obstructive pulmonary disease, unspecified; N40.0 Benign prostatic hyperplasia without lower urinary tract symptoms; M54.30 Sciatica, unspecified side; M06.9 Rheumatoid arthritis, unspecified; M19.90 Unspecified osteoarthritis, unspecified site; F32.9 Major depressive disorder, single episode, unspecified; R40.2362 Coma scale, best motor response, obeys commands, at arrival to emergency department; R40.2142 Coma scale, eyes open, spontaneous, at arrival to emergency department; R40.2252 Coma scale, best verbal response, oriented, at arrival to emergency department; E11.42 Type 2 diabetes mellitus with diabetic polyneuropathy; G89.29 Other chronic pain; E78.5 Hyperlipidemia, unspecified; F41.9 Anxiety disorder, unspecified; N18.3 Chronic kidney disease, stage 3 (moderate); R29.6 Repeated falls; D86.9 Sarcoidosis, unspecified; E66.9 Obesity, unspecified; D63.1 Anemia in chronic kidney disease; K52.9 Noninfective gastroenteritis and colitis, unspecified; E11.51 Type 2 diabetes mellitus with diabetic peripheral angiopathy without gangrene; Z95.1 Presence of aortocoronary bypass graft; Z88.8 Allergy status to other drugs, medicaments and biological substances; Z88.2 Allergy status to sulfonamides; Z85.118 Personal history of other malignant neoplasm of bronchus and lung; Z87.01 Personal history of pneumonia (recurrent); Z86.14 Personal history of Methicillin resistant Staphylococcus aureus infection; Z98.42 Cataract extraction status, left eye; Z98.41 Cataract extraction status, right eye; Z89.432 Acquired absence of left foot; Z87.891 Personal history of nicotine dependence; Z95.0 Presence of cardiac pacemaker; Z89.431 Acquired absence of right foot; Z82.49 Family history of ischemic heart disease and other diseases of the circulatory system; Z80.0 Family history of malignant neoplasm of digestive organs; Y92.009 Unspecified place in unspecified non-institutional (private) residence as the place of occurrence of the external cause; Z79.82 Long term (current) use of aspirin
CPT/HCPCS: 36415; 36600; 70450; 71045; 71046; 71260; 74177; 80048; 80053; 81003; 81015; 82140; 82379; 82550; 82607; 82728; 82803; 83519; 83520; 83540; 83550; 83605; 83735; 83880; 84100; 84439; 84443; 84479; 84481; 84484; 85025; 85027; 85610; 85730; 86140; 86255; 86256; 86738; 87040; 87070; 87205; 87641; 87899; 93005; 94003; 94640; 99284; 99285; A9270-GY; G8978-GP-CK; G8978-GP-CM; G8979-GP-CI; G8987-GO-CM; G8988-GO-CJ; J0330; J1644; J1940; J2250; J2310; J2543; J2930; J3010; J3370; J3475; Q9967

== ENCOUNTER 2019-03-15 12:26 | Emergency (ER) | payer MEDICARE, OTHER ==
--- NOTE | 2019-03-15 13:43 | ED ---
Neurological HPI - HPI Summary HPI Summary: A 69-year-old male with a history of coronary artery disease, type 2 diabetes, peripheral neuropathy, diabetic foot ulcers, COPD, depression, lung cancer, on chronic narcotics admission for respiratory failure 2/2 opiate overdose p/w repeat falls and somnolence. Patients called EMS for weakness/falls. Of note, Chavez was discharged 7 days ago after respiratory failure likely secondary to opiate use. While at home he was able to walk a little bit. He has had some difficulty and was falling out of his recliner this past week. He also has had decreased mental status/somolenece but no confusion. He says that he took 10 mg Oxycodone at 09:00 today and takes it up to four times per day. He is on 2L O2 at home. Per , the patient is not safe at home given repeated falls. Patient is AAOx3 without complaints, falls asleep easily but also arouses to voice. - History of Current Complaint Chief Complaint: EDWeakness Stated Complaint: INCRESSED WEEKNESS Time Seen by Provider: 03/15/19 13:28 Hx Obtained From: Patient, EMS Onset/Duration: Sudden Onset Timing: Constant Onset Severity: Mild Current Severity: Mild Neurological Deficit Location: Generalized Pain Intensity: 0 Pain Scale Used: 0-10 Numeric Character: Weak Aggravating: Nothing Alleviating: Nothing - Additional Pertinent History Primary Care Physician: [id number] - Allergy/Home Medications Allergies/Adverse Reactions: Allergies Allergy/AdvReac Type Severity Reaction Status Date / Time lisinopril Allergy Unknown Verified 02/13/19 11:17 Reaction Details metoprolol Allergy Unknown Verified 02/13/19 11:17 Reaction Details clopidogrel AdvReac Severe Made Verified 02/13/19 11:17 opiate effect more intense Sulfa (Sulfonamide AdvReac Rash Verified 02/13/19 11:17 Antibiotics) Home Medications: Home Medications Albuterol HFA INHALER* [Ventolin HFA Inhaler*] 2 puff INH Q6H PRN 03/15/19 [ History Confirmed 03/15/19] PMH/Surg Hx/FS Hx/Imm Hx Endocrine/Hematology History: Reports: Hx Diabetes, Hx Anemia - HX OF Denies: Hx Thyroid Disease Cardiovascular History: Reports: Hx Coronary Artery Disease, Hx Hypercholesterolemia, Hx Hypertension, Hx Pacemaker/ICD - 8/29/16, Hx Peripheral Vascular Disease, Other Cardiovascular Problems/Disorders - BYPASS SURGERY Denies: Hx Aneurysm, Hx Angina, Hx Cardiac Arrest, Hx Cardiomegaly, Hx Congestive Heart Failure, Hx Rheumatic Fever, Hx Valvular Heart Disease Respiratory History: Reports: Hx Asthma, Hx Chronic Bronchitis, Hx Chronic Obstructive Pulmonary Disease (COPD), Hx Lung Cancer - RLL, Hx Pneumonia, Other Respiratory Problems/Disorders - COPD Denies: Hx Pulmonary Edema, Hx Pulmonary Embolism, Hx Seasonal Allergies, Hx Sleep Apnea GI History: Reports: Hx Gastroesophageal Reflux Disease - CONTROL WITH MED Denies: Hx Cirrhosis, Hx Crohn's Disease, Hx Irritable Bowel, Hx Jaundice, Hx Ulcer History: Reports: Hx Acute Renal Failure, Hx Benign Prostatic Hyperplasia, Other Problems/Disorders - CKD Denies: Hx Dialysis, Hx Renal Disease Musculoskeletal History: Reports: Hx Arthritis - RA AND OSTEOARTHRITIS, Hx Rheumatoid Arthritis, Hx Back Problems - siatica, Other Musculoskeletal History - HX SCIATICA Sensory History: Reports: Hx Cataracts, Hx Contacts or Glasses, Other Sensory Impairments - Neuropathy Denies: Hx Eye Injury, Hx Glaucoma, Hx Hearing Aid, Hx Hearing Problem Opthamlomology History: Reports: Hx Cataracts, Hx Contacts or Glasses, Other Sensory Impairments - Neuropathy Denies: Hx Eye Injury, Hx Glaucoma Neurological History: Denies: Hx Dementia, Hx Developmental Delay, Hx Headaches, Hx Migraine, Hx Nerve Disease, Hx Seizures, Hx Spinal Cord Injury, Hx Transient Ischemic Attacks (TIA), Other Neuro Impairments/Disorders Psychiatric History: Reports: Hx Depression Denies: Hx Panic Disorder - Cancer History Cancer Type, Location and Year: R Lung [address] Lindsay - dx and then not present Hx Chemotherapy: No - Surgical History Surgery Procedure, Year, and Place: CABG -5 1994, STRONG. Hernia Repair, [facility]. Right foot 4th toe joint [place],. [place] [facility] [place] [facility] [place] [facility] [place]. 06/2015 LEFT ST[place] [facility] [place] Anesthesia Reactions: No - Immunization History Date of Tetanus Vaccine: unsure Date of Influenza Vaccine: 2011 Infectious Disease History: No Infectious Disease History: Reports: Hx of Known/Suspected MRSA Denies: Hx Clostridium Difficile, Hx Hepatitis, Hx Human Immunodeficiency Virus (HIV), Hx Shingles, Hx Tuberculosis, Hx Known/Suspected VRE, Hx Known/ Suspected VRSA, History Other Infectious Disease, Traveled Outside the [place] in Last 30 Days - Family History Known Family History: Negative: Hypertension - Social History Alcohol Use: None Hx Substance Use: No Substance Use Type: Reports: Other Substance Use Comment - Amount & Last Used: Prescribed - oxycodone Hx Tobacco Use: Yes - 1995 Smoking Status (MU): Former Smoker Type: Cigarettes Amount Used/How Often: 2 PPD Length of Time of Smoking/Using Tobacco: 20 YEARS Have You Smoked in the Last Year: No Review of Systems Negative: Fever Positive: Weakness All Other Systems Reviewed And Are Negative: Yes Physical Exam - Summary Physical Exam Summary: Constitutional: Chonically ill appearing, obese, Alert, Somnolent. (-) Distressed Skin: Warm, Dry, superficial wound to the left lateral heel. HENT: Normocephalic; Atraumatic Eyes: pinpoint pupils Neck: Musculoskeletal ROM normal neck. (-) JVD, (-) Nuchal rigidity Cardio: Rhythm regular, rate normal, Heart sounds normal; Intact distal pulses; Radial pulses are 2+ and symmetric. (-) Murmur Pulmonary/Chest wall: Effort normal. (-) Respiratory distress, Rhonchi Bilaterally Abd: Soft. (-) Tenderness, (-) Distension, (-) Guarding, (-) Rebound Musculoskeletal: amputations bilateral MTPs Lymph: (-) Cervical adenopathy Neuro: Intermittently somnolent, PERRL, Oriented x3, Strength normal, Cranial nerves II-XII are grossly intact. SILT, Strength 5/5 BUE and BLE, (-) Dysmetria , (-) Nystagmus Psych: Mood and affect Normal Triage Information Reviewed: Yes Vital Signs On Initial Exam: Initial Vitals Temp Pulse Resp BP Pulse Ox 98.4 F 83 14 149/95 97 03/15/19 12:34 03/15/19 12:34 03/15/19 12:34 03/15/19 12:34 03/15/19 12:34 Vital Signs Reviewed: Yes Diagnostics - Vital Signs Vital Signs Temp Pulse Resp BP Pulse Ox 03/15/19 12:34 98.4 F 83 14 149/95 97 - Laboratory Result Diagrams: 03/15/19 13:34 03/15/19 13:34 Lab Statement: Any lab studies that have been ordered have been reviewed, and results considered in the medical decision making process. - EKG 13:25 Cardiac Rate: Other Rate - Ventricularly paced at 77 bpm Summary of EKG Findings: Ventricularly paced at 77 bpm, no change from prior when compared to EKG done in October of 2017. Re-Evaluation - Re-Evaluation First Eval Comment: Resting no acute distress, head CT negative, labs unremarkable aside for a CO2 of 69. Patient is likely chronic retainer secondary to COPD as well as narcotic use. Hospital medicine to touch base w social psychologist regarding placement in a rehabilitation facility for repeated falls. Course/Dx - Course Course Of Treatment: 69-year-old male with a history of coronary artery disease , type 2 diabetes, peripheral neuropathy, diabetic foot ulcers, COPD, depression , lung cancer, on chronic narcotics admission for respiratory failure 2/2 opiate overdose p/w repeat falls and somnolence. - PE neuro exam unremarkable, intermittently somnolent w pinpoint pupils. Suspect that continued falls and weakness may be secondary to medication overuse. Well assess for infectious cause, discuss w hospitalist team regarding admission to rehabilitation unit as states she is unable to take care of him safely at home - Diagnoses Provider Diagnoses: COPD (chronic obstructive pulmonary disease), Altered mental status, Fall, Opioid abuse with intoxication delirium - Physician Notifications Discussed Care Of Patient With: Flory Agrawal Time Discussed With Above Provider: 15:30 Instructed by Provider To: Other - says that we are waiting for social psychologist to give us disposition. At 16:10 Discussed case with social psychologist who reports that the patient will leave at 17:30 for [facility]. Discharge - Sign-Out/Discharge Documenting (check all that apply): Patient Departure - transfer Patient Received Moderate/Deep Sedation with Procedure: No - Discharge Plan Condition: Fair Disposition: RESIDENTIAL FACILITY Referrals: Deonte aMsters MD [Primary Care Provider] - - Billing Disposition and Condition Condition: FAIR Disposition: Half-Way Facility - Attestation Statements Document Initiated by Scribe: Yes Documenting Scribe: Chapito Longo Provider For Whom Scribe is Documenting (Include Credential): Salima Sylvester MD Scribe Attestation: IChapito, scribed for Salima Sylvester MD on 03/15/19 at 1713. Scribe Documentation Reviewed: Yes Provider Attestation: The documentation as recorded by the scribe, Chapito Longo accurately reflects the service I personally performed and the decisions made by me, Salima Sylvester MD Status of Scribe Document: Viewed
[2019-03-15 13:48] LABS: ABS Basophils 0.1 10^3/ul (0-0.2); ABS Eosinophils 0.3 10^3/ul (0-0.6); ABS Monocytes 0.5 10^3/ul (0-0.8); ABS Neutrophils 5.5 10^3/ul (1.5-7.7); Eosinophil % 3.6 %; Hematocrit 30 % (42-52); Hemoglobin 9.9 g/dL (14.0-18.0); Lymphocyte % 13.4 %; Mean Corpuscular HGB Conc 33 g/dL (31-36); Mean Corpuscular Hemoglobin 27 pg (27-31); Mean Corpuscular Volume 83 fL (80-94); Mean Platelet Volume 7.2 fL (7.4-10.4); Platelet Count 208 10^3/uL (150-450); Red Blood Count 3.62 10^6 /uL (4.18-5.48); Red Cell Distribution Width 15 % (10-15); White Blood Count 7.4 10^3/uL (3.5-10.8)
[2019-03-15 13:58] LABS: Albumin 3.8 g/dL (3.2-5.2); Albumin/Globulin Ratio 1.2 (1-3); BUN/Creatinine Ratio 23.7 (8-20); C Reactive Protein 17.77 mg/L (<8.01); Calcium 9.2 mg/dL (8.6-10.3); EGFR African American 46.4 (>60); EGFR Non-African American 38.3 (>60); Globulin 3.2 g/dL (2-4); Magnesium 1.7 mg/dL (1.9-2.7); Potassium 4.3 mmol/L (3.5-5.0); Total Bilirubin 0.3 mg/dL (0.2-1.0)
[2019-03-15 14:29] LABS: TSH (Thyroid Stimulating Horm) 4.69 mcIU/mL (0.34-5.60)
--- OUTSIDE RECORDS SUMMARY | 2019-03-15 14:38 | XMS REPORT | Continuity of Care Document ---
:1950 External Reference #:[id number] Author Name Deonte Masters M.D. Address [address] [place] [address] Care Team Providers Name Role Phone [facility] - Care Team Information Crochet Beader [phone] [facility] Otoniel Agustin MD - Cardiovascular Care Team Information [employer] Disease Venu Monet - Endocrinology, Diabetes & Care Team Information [employer]chet [employer] Metabolism Deonte Masters MD - Family Medicine Care Team Information Crochet Beader [phone] Epifanio Palomino MD - Vascular Surgery Care Team Information Crochet Beader [phone] [facility] [place] [facility] - Hospitalist Care Team Information Crochet Beader Adonis Ackerman MD - Care Team Information [employer]chet [employer]er [phone] Gastroenterology Problems Active Problems Provider Date Type 2 diabetes mellitus Deonte Masters M.D. Onset: 10/14/2006 Anemia Deonte Masters M.D. Onset: 10/14/2006 Coronary arteriosclerosis Deonte Masters M.D. Onset: 10/14/2006 Rheumatoid arthritis Deonte Masters M.D. Onset: 10/14/2006 Peripheral vascular disease Deonte Masters M.D. Onset: 10/14/2006 Depressive disorder Deonte Masters M.D. Onset: 10/05/2007 Benign prostatic hypertrophy with outflow Deonte Masters M.D. Onset: 05/25 obstruction Sensory neuropathy Deonte Masters M.D. Onset: 12/23/2016 Low back pain Deonte Masters M.D. Onset: 02/03/2017 Essential hypertension Deonte Masters M.D. Onset: 03/24/2017 Other hyperlipidemia Deonte Masters M.D. Onset: 06/20/2018 Chronic obstructive lung disease Deonte Masters M.D. Onset: 12/21/2018 Cough Deonte Masters M.D. Onset: 12/21/2018 Social History Type Date Description Comments Sex Unknown Tobacco Use Start: Unknown End: Former Cigarette Smoker 1 quit after his [place] Unknown Pack Daily ETOH Use Rarely consumes alcohol Tobacco Use Start: Unknown End: Patient is a former smoker Unknown Smoking Status Reviewed: 05/03/17 Patient is a former smoker Allergies, Adverse Reactions, Alerts Active Allergies Reaction Severity Comments Date Bactrim Urticaria rash 03/28/2015 Inactive Allergies NKDA 03/28/2015 Medications Active Medications SIG Qnty Indications Ordering Date Provider Note needs lancets for 100units Deonte F. 03/12/2019 Freestyle 28 Sonam vaughan M.D. dx e11.9 Spiriva Handihaler inhale the contents 3caps Tawana C. 05/18/2018 of 1 capsule daily LAURA Higginbotham 18mcg Capsules Furosemide Take 2 Tablets 180tabs R06.02 Carmen Grace 04/18/2018 40mg Every Day Shankar OPERATIONS AND MAINTENANCE TECHNICIAN Tablets BD Pen Mckinley Uf Short Use With Lantus And 400units Deonte F. 01/29/2018 8mm 100'S 31G5/16 Humalog Pen Four Bartolome Masters Times A Day 31G5/16 Portable O2 dx. j44.9 lifetime Deonte F. 10/03/2017 Concentrator Bartolome Masters Misc Celecoxib 1 po qd 180caps Deonte F. 06/22/2017 200mg Bartolome Masters Capsules Buspirone HCL 1 by mouth twice a 180tabs Deonte FLora 12/23/2016 10mg day as needed Bartolome Masters Tablets BD Pen use with lantus and 400units Deonte F. 07/27/2016 Needle/Short/Ultrafi humolog pen qid Bartolome Masters ne/31G X 5/16" dx:e11.65 last appt 31G X 11/30/16 8 mm Misc Omeprazole Take 1 Capsule By 90caps Deonte F. 05/15/2016 20mg Mouth Every Day Bartolome Masters Capsules DR Pioglitazone HCL Take 1 Tablet Daily 90tabs Deonte F. 02/23/2016 15mg Bartolome Masters Tablets Symbicort 2 puffs bid 10.200gm J44.9 Deonte F. 10/24/2015 Bartolome Masters 160-4.5mcg/Act Aerosol Sertraline HCL Take 1 Tablet Daily 90tabs Deonte F. 10/24/2015 25mg Bartolome Masters Tablets Simvastatin Take 1 Tablet Daily 90tabs Deonte F. 10/04/2015 20mg Bartolome Masters Tablets Budesonide in nebulizer twice 120ml Letha 05/22/2015 0.5mg/2ML a day as needed [place], Suspension Afnp-C Lantus Solostar Inject 33 Units 30units Deonte F. 04/11/2015 Under The Skin Bartolome Masters 100Unit/ML Solution Every Evening Or as Pen-Inject Directed Freestyle Lancets test four times a 300units Deonte F. 04/09/2015 day or as directed Bartolome Masters [facility] dx: dm, last visit 12/13/2017 Oxycodone HCL 1 tab 4x day 30tabs Deonte F. 01/07/2015 5mg Bartolome Masters Tablets Oxygen Therapy 2L, Via N/C at Deonte F. 01/07/2015 bedtime Bartolome Masters Xopenex HFA 2 puffs four times 15gm Deonte F. 01/07/2015 45mcg/Act a day as needed Bartolome Masters Aerosol Xopenex use one vial via 72ml J15.8 Letha 11/28/2014 1.25mg/3ML nebulizer three [place], Nebulizer times a day as Afnp-C needed for bronchospasm Montelukast Sodium Take 1 Tablet Daily 90tabs Deonte F. 08/09/2014 Bartolome Masters 10mg Tablets Mirtazapine Take 1 Tablet AT 90tabs Deonte F. 03/28/2014 30mg Bedtime Bartolome Masters Tablets Nitroglycerin 1 sl prn chest 100tabs Deonte F. 09/10/2002 0.4mg pain, may repeat q Bartolome Masetrs Tablets Sub 5-10min,if no relief after 3,call emt's Oxycontin 1 by mouth twice Unknown 10mg Tab ER daily 12H Abuse-Det Humalog Kwikpen Inject 6 Units 30units Deonte F. Under The Skin With Bartolome Masters 100Unit/ML Solution Meals Pen-Inject Lyrica 1 by mouth three Unknown 50mg Capsules times a day Aspirin Ec 1 by mouth every Deonte F. 81mg day Bartolome Masters Tablets DR Herrera Colon 1 by mouth daily Deonte F. Health Bartolome Masters Capsules Colace 1 by mouth twice a Deonte F. 100mg Capsules day as needed Bartolome Masters Flomax 1 po qd Deonte F. 0.4mg Capsules Bartolome Masters History Medications Levaquin 1 by mouth every 7tabs Deonte FLora Masters, 12/29/2018 - 500mg day M.D. 03/12/2019 Tablets Cheratussin ac 10ml every 4 354ml Deonte FLora Masters, 12/21/2018 - hours as needed M.D. 03/12/2019 100-10mg/5ML Syrup Freestyle Lite Use To Test Four 100units Deonte F. [place]radha, 12/21/2018 - Na Times A Day Or M.D. 03/12/2019 Strips 50'S as Directed e11.9 Doxycycline Hyclate take one by 14caps J44.1 Tawana Gamboa 10/26/2018 - mouth twice LAURA Higginbotham 10/26/2018 100mg Capsules daily until gone Zithromax take two by 6tabs J44.1 Tawana Gamboa 10/26/2018 - 250mg mouth as first Neftaly OPERATIONS AND MAINTENANCE TECHNICIAN 12/21/2018 Tablets dose, then take one by mouth daily until gone Acetaminophen-Codei take one by 20tabs J44.1 Tawana Gamboa 10/26/2018 - ne #3 mouth every 6 Neftaly OPERATIONS AND MAINTENANCE TECHNICIAN 03/12/2019 300-30mg hours as needed Tablets for cough. may take 2 as one dose at bedtime. Medications Administered in Office Medication SIG Qnty Indications Ordering Provider Date Injection Rocephrin 250 MG Aron Sanchez M.D. 09/23/2003 Injection Injection Subcutaneous Or Aron Sanchez M.D. 09/23/2003 Intramuscular Injection Immunizations CPT Code Status Date Vaccine Reaction Lot # [id number] Given 06/20/2018 Pneumococcal Immunization [id number] 80022 Given 04/18/2018 High-Dose, Influenza Virus [id number] Vacccine-fluzone 65 and older 68450 Given 05/17/2017 High-Dose, Influenza Virus [id number] Vacccine-fluzone 65 and older 28182 Given 05/20/2016 High-Dose, Influenza Virus [id number] Vacccine-fluzone 65 and older 58547 Given 05/22/2015 Influenza Vac, Quadrivalent, [id number] [address] Given 04/11/2015 Pneumococcal Conjugate [id number] Vacc-13 Q2038 Given 05/30/2014 Split Influenza Medicare: [id number] Fluzone Q2038 Given 05/30/2014 Split Influenza Medicare: Fluzone Q2038 Given 04/25/2012 Split Influenza Medicare: no reaction noted [id number] Fluzone 00668 Given 04/25/2012 Tdap Tetanus, W Pertussis no reaction noted [id number] Q2038 Given 04/20/2011 Split Influenza Medicare: Fluzone 02681 Given 04/20/2011 DO Not Use Split Influenza [id number] Virus Vaccine 09607 Given 04/22/2010 DO Not Use Split Influenza [id number] Virus Vaccine 81683 Given 08/20/2009 Pneumococcal Immunization 45396 Given 06/23/2009 H1N1 Immunization Intramuscular/Intranasal W Counseling 28182 Given 06/23/2009 H1N1 Virus Vaccine [id number] 10044 Given 04/10/2009 DO Not Use Split Influenza [id number] Virus Vaccine 27870 Given 05/09/2008 DO Not Use Split Influenza Virus Vaccine 85033 Given 06/29/2007 DO Not Use Split Influenza [id number] Virus Vaccine 47562 Given 06/18/2006 DO Not Use Split Influenza [id number] Virus Vaccine 62505 Given 06/01/2005 DO Not Use Split Influenza Virus Vaccine 14240 Given 06/01/2005 DO Not Use Split Influenza Virus Vaccine 83983 Given 06/12/2004 DO Not Use Split Influenza Virus Vaccine 80403 Given 06/12/2004 DO Not Use Split Influenza Virus Vaccine 97566 Given 04/23/2003 DO Not Use Split Influenza Virus Vaccine 63944 Given 06/13/2001 Influenza Immunization 87329 Given 06/13/2001 DO Not Use Split Influenza Virus Vaccine 35133 Given 05/05/2000 DO Not Use Split Influenza Virus Vaccine 25726 Given 05/23/1998 Pneumococcal Immunization 27841 Given 05/23/1998 Influenza Immunization 13215 Given 04/11/1997 Influenza Immunization Vital Signs Date Vital Result Comment 03/12/2019 1:02pm BP Systolic 146 mmHg BP Diastolic 70 mmHg Heart Rate 76 /min Body Temperature 97.7 F Respiratory Rate 20 /min O2 % BldC Oximetry 93 % 2 lnc Weight 280.00 lb per pt 12/29/2018 12:06am BP Systolic 122 mmHg BP Diastolic 82 mmHg Heart Rate 70 /min Respiratory Rate 20 /min Results Test Date Facility Test Result H/L Range Note Laboratory test 02/28/2019 [facility] [place] B-Type Natriuretic 64 pg/mL <=100 finding Peptide BNP CBC Auto Diff 02/28/2019 [facility] [place] White Blood Count 5.0 10^3/uL N 3.5-10.8 Red Blood Count 3.74 10^6/uL Low 4.18-5.48 Hemoglobin 10.1 g/dL Low 14.0-18.0 Hematocrit 31 % Low 42-52 Mean Corpuscular Volume 82 fL N 80-94 Mean Corpuscular Hemoglobin 27 pg N 27-31 Mean Corpuscular HGB Conc 33 g/dL N 31-36 Red Cell Distribution Width 15 % N 10-15 Platelet Count 132 10^3/uL Low 150-450 Mean Platelet Volume 7.4 fL N 7.4-10.4 Abs Neutrophils 3.5 10^3/uL N 1.5-7.7 Abs Lymphocytes 0.9 10^3/uL Low 1.0-4.8 Abs Monocytes 0.4 10^3/uL N 0-0.8 Abs Eosinophils 0.2 10^3/uL N 0-0.6 Abs Basophils 0.0 10^3/uL N 0-0.2 Abs Nucleated RBC 0.0 10^3/uL Granulocyte % 69.3 % Lymphocyte % 18.8 % Monocyte % 7.8 % Eosinophil % 3.4 % Basophil % 0.7 % Nucleated Red Blood Cells % 0.1 Comp Metabolic Panel 02/28/2019 [facility] [place] Sodium 141 mmol/L N 135-145 Potassium 4.6 mmol/L N 3.5-5.0 Chloride 104 mmol/L N 101-111 Co2 Carbon Dioxide 32 mmol/L N 22-32 Anion Gap 5 mmol/L N 2-11 Glucose 156 mg/dL High 70-100 Blood Urea Nitrogen 51 mg/dL High 6-24 Creatinine 1.97 mg/dL High 0.67-1.17 BUN/Creatinine Ratio 25.9 High 8-20 Calcium 9.4 mg/dL N 8.6-10.3 Total Protein 6.8 g/dL N 6.4-8.9 Albumin 3.6 g/dL N 3.2-5.2 Globulin 3.2 g/dL N 2-4 Albumin/Globulin Ratio 1.1 N 1-3 Total Bilirubin 0.20 mg/dL N 0.2-1.0 Alkaline Phosphatase 68 U/L N 34-104 Alt 8 U/L N 7-52 Ast 14 U/L N 13-39 Egfr Non- 33.9 >60 Egfr 41.0 >60 1 Laboratory test finding 02/28/2019 [facility] [place] Lactic Acid 1.1 mmol/L N 0.5-2.0 2 Troponin I 0.01 ng/mL <0.04 3 Urinalysis Profile 02/28/2019 [facility] [place] Urine Color Yellow Urine Appearance Clear Urine Specific Jeff 1.018 N 1.010-1.030 Urine pH 5.0 N 5-9 Urine Urobilinogen Negative Negative Urine Ketones Negative Negative Urine Protein Negative Negative Urine Leukocytes Negative Negative Urine Blood Negative Negative Urine Nitrite Negative Negative Urine Bilirubin Negative Negative Urine Glucose Negative Negative Laboratory test finding 02/28/2019 [facility] Troponin I 0.04 ng/mL High <0.04 4 Venous Blood Gas 02/28/2019 [facility] [place] Venous Blood pH 7.38 N 7.32-7.43 Venous Pco2 61 mmHg High 41-51 Venous Po2 51.0 mmHg High 35-45 Venous O2 Saturation 86.2 % High 70-80 Venous Blood Base Excess 8.7 mmol/L High 0.0-4.0 5 Venous Bicarbonate Hco3 31.3 mmol/L High 24-28 Laboratory test finding 02/28/2019 [facility] C Reactive Protein 64.61 mg/L High <8.01 Troponin I 0.04 ng/mL High <0.04 6 Lactic Acid 1.4 mmol/L N 0.5-2.0 7 Blood Culture SEE RESULT BELOW 8 Comp Metabolic Panel 02/28/2019 [facility] [place] Sodium 141 mmol/L N 135-145 Potassium 4.6 mmol/L N 3.5-5.0 Chloride 103 mmol/L N 101-111 Co2 Carbon Dioxide 32 mmol/L N 22-32 Anion Gap 6 mmol/L N 2-11 Glucose 206 mg/dL High 70-100 Blood Urea Nitrogen 47 mg/dL High 6-24 Creatinine 1.91 mg/dL High 0.67-1.17 BUN/Creatinine Ratio 24.6 High 8-20 Calcium 9.6 mg/dL N 8.6-10.3 Total Protein 7.0 g/dL N 6.4-8.9 Albumin 3.6 g/dL N 3.2-5.2 Globulin 3.4 g/dL N 2-4 Albumin/Globulin Ratio 1.1 N 1-3 Total Bilirubin 0.50 mg/dL N 0.2-1.0 Alkaline Phosphatase 60 U/L N 34-104 Alt 11 U/L N 7-52 Ast 16 U/L N 13-39 Egfr Non- 35.1 >60 Egfr 42.5 >60 9 Laboratory test finding 02/28/2019 [facility] [place] Partial Thrombo Time 36.2 seconds N 26.0-38.0 PTT B-Type Natriuretic Peptide BNP 224 pg/mL High <=100 Inr/Protime 02/28/2019 [facility] Inr 1.12 High 0.82-1.09 10 CBC Auto Diff 02/28/2019 [facility] White Blood Count 10.9 10^3/uL High 3.5- 10.8 Red Blood Count 3.92 10^6/uL Low 4.18-5.48 Hemoglobin 10.5 g/dL Low 14.0-18.0 Hematocrit 32 % Low 42-52 Mean Corpuscular Volume 82 fL N 80-94 Mean Corpuscular Hemoglobin 27 pg N 27-31 Mean Corpuscular HGB Conc 33 g/dL N 31-36 Red Cell Distribution Width 15 % N 10-15 Platelet Count 135 10^3/uL Low 150-450 Mean Platelet Volume 7.8 fL N 7.4-10.4 Abs Neutrophils 8.2 10^3/uL High 1.5-7.7 Abs Lymphocytes 1.7 10^3/uL N 1.0-4.8 Abs Monocytes 0.9 10^3/uL High 0-0.8 Abs Eosinophils 0.0 10^3/uL N 0-0.6 Abs Basophils 0.0 10^3/uL N 0-0.2 Abs Nucleated RBC 0.0 10^3/uL Granulocyte % 75.2 % Lymphocyte % 15.6 % Monocyte % 8.6 % Eosinophil % 0.4 % Basophil % 0.2 % Nucleated Red Blood Cells % 0.0 Urinalysis Profile 02/28/2019 [facility] [place] Urine Color Straw Urine Appearance Clear Urine Specific Jeff 1.008 Low 1.010-1.030 Urine pH 6.0 N 5-9 Urine Urobilinogen Negative Negative Urine Ketones Negative Negative Urine Protein Negative Negative Urine Leukocytes Negative Negative Urine Blood 1+ Abnormal Negative Urine Nitrite Negative Negative Urine Bilirubin Negative Negative Urine Glucose Negative Negative Urine White Blood Cell Absent Absent Urine Red Blood Cell Trace(0-2/hpf) Absent Urine Bacteria Absent Absent Urine Hyaline Casts Present Abnormal Absent Arterial Blood Gas 02/28/2019 [facility] PH Arterial 7.40 N 7.35-7.45 Pco2 Arterial 53 mmHg High 35-45 Po2 Arterial 70 mmHg Low 80-100 O2 Saturation Arterial 96.6 % N 94.0-98.0 Base Excess Arterial 6.5 mmol/L High -2.0-2.0 11 Hco3 Arterial 29.9 mmol/L N 19-31 Lipid Profile 12/21/2018 [facility]) Cholesterol 142 mg/dL 120- 200 Triglycerides 185 mg/dL 30-200 HDL Cholesterol 36 mg/dL 30-70 LDL (Calculated) 69 CALC 0-129 VLDL Cholesterol 37 mg/dL 0-50 HDL Risk Factor 3.9 CALC 0.0-4.4 Comprehensive Metabolic 12/21/2018 [facility]) Sodium 143 mEq/L 134-149 Prof Potassium 5.2 mEq/L 3.6-5.5 Chloride 101 mEq/L 94-112 Carbon Dioxide 32 mEq/L 21-32 Glucose 161 mg/dL High 70-105 12 BUN 49 mg/dL High 6-26 13 Creatinine 1.7 mg/dL High 0.6-1.4 14 BUN/Creat Ratio 28.8 CALC 8.0-36.0 Calcium 9.3 mg/dL 8.6-10.2 Total Protein 6.9 g/dL 6.4-8.3 Albumin 4.2 g/dL 3.8-5.5 Globulin 2.7 g/dL 2.0-4.8 A/G Ratio 1.6 CALC 0.6-2.3 Alk. Phosphatase 55 U/L 22-95 Alt (SGPT) 10 U/L 7-35 Ast (Sgot) 13 U/L 5-34 Total Bilirubin 0.3 mg/dL 0.2-1.3 GFR Non- 43 ml/min/1.73m^ Low >=60 GFR 52 ml/min/1.73m^ Low >=60 Laboratory test finding 12/21/2018 [facility]) CK 46 U/L 38-174 TSH 5.16 mIU/L 0.50-6.00 Laboratory test 12/21/2018 [facility] Hemoglobin A1c 6.4% % High 4.1 -5.7 finding (607)- - (a) CBC Electronic 12/21/2018 [facility] WBC 6.27 4.0-10.0 (Fma New) (607)- - RBC 3.53 Low 3.93-6.0 Hemoglobin (Fma/CMC/CTX) 9.8 g/dL Low 12.0-17.0 Hematocrit (Fma/CMC/CTX) 31.2 % Low 35.0-50.0 Mean Corpuscular Vol 88.4 fL 80-95 Mean Corpuscular Hemoglobin 27.8 pg 25.6-32.2 Mean Corpuscular Hemo Concen 31.4 g/dL Low 32.2-36.0 Platelets 149 10^3/ul Low 163-400 RDW-CV 14.0 11.6-14.4 Mean Platelet Volume 9.4 fL 8.0-12.4 Absolute Neutrophils BLD 3.94 1.56-6.13 Absolute Lymphocytes 1.51 1.18-3.74 Absolute Monocytes BLD Auto 0.52 0.24-0.82 Absolute Eos Blood 0.27 0.04-0.54 Absolute Basophils 0.02 0.01-0.08 Neutrophil % 62.8 % 34.0-70.0 Lymph% 24.1 % 20.0-52.0 Monocytes % 8.3 % 5.0-12.0 Eos % 4.3 % 0.7-7.0 Basophil% 0.3 % 0-1.2 Drug Abuse 20 Urine 12/20/2018 [facility] Urine Amphetamine Negative ng/mL 15 Urine Barbiturates Negative ng/mL 16 Urine Benzodiazepines Negative ng/mL 17 Urine Cocaine Negative ng/mL 18 Urine Phencyclidine Negative ng/mL Cutoff: 25 Urine Tetrahydrocannabinol Negative ng/mL Cutoff: 50 19 Creatinine, Urine 46.6 mg/dL Specific Jeff 1.007 pH 5.1 Oxidants Negative 20 Adulterants Comment Normal Codeine, Ur Not Detected ng/mL Cutoff: 25 21 Febfjka-9-gkmk-glucuronide, Ur Not Detected ng/mL 22 Morphine, Ur Not Detected ng/mL Cutoff: 25 23 Qiprhuxs-8-ihwd-glucuronide, U Not Detected ng/mL 24 6-monoacetylmorphine, Ur Not Detected ng/mL Cutoff: 25 25 Hydrocodone, Ur Not Detected ng/mL Cutoff: 25 26 Norhydrocodone, Ur Not Detected ng/mL Cutoff: 25 27 Dihydrocodeine, Ur Not Detected ng/mL Cutoff: 25 28 Hydromorphone, Ur Not Detected ng/mL Cutoff: 25 29 Dczhpxlcligvp2etlegqgetzaorzf Not Detected ng/mL 30 Oxycodone, Ur Present ng/mL Abnormal Cutoff: 25 31 Noroxycodone, Ur Present ng/mL Abnormal Cutoff: 25 32 Oxymorphone, Ur Not Detected ng/mL Cutoff: 25 33 Zwlkcwegfuy-4-bkvo-glucuronide Present ng/mL Abnormal 34 Noroxymorphone, Ur Present ng/mL Abnormal Cutoff: 25 35 Fentanyl, Ur Not Detected ng/mL Cutoff: 2 36 Norfentanyl, Ur Not Detected ng/mL Cutoff: 2 37 Meperidine, Ur Not Detected ng/mL Cutoff: 25 38 Normeperidine, Ur Not Detected ng/mL Cutoff: 25 39 Naloxone, Ur Not Detected ng/mL Cutoff: 25 40 Dcgovemx-6-rnyh-glucuronide, U Not Detected ng/mL 41 Methadone, Ur Not Detected ng/mL Cutoff: 25 42 Eddp, Ur Not Detected ng/mL Cutoff: 25 43 Propoxyphene, Ur Not Detected ng/mL Cutoff: 25 44 Norpropoxyphene, Ur Not Detected ng/mL Cutoff: 25 45 Tramadol, Ur Not Detected ng/mL Cutoff: 25 46 O-desmethyltramadol, Ur Not Detected ng/mL Cutoff: 25 47 Tapentadol, Ur Not Detected ng/mL Cutoff: 25 48 N-desmethyltapentadol, Ur Not Detected ng/mL Cutoff: 50 49 Ldowzfvagv-uqvs-blcwstatoyw, U Not Detected ng/mL 50 Buprenorphine, Ur Not Detected ng/mL Cutoff: 5 51 Norbuprenorphine, Ur Not Detected ng/mL Cutoff: 5 52 Norbuprenorphine glucuronide Not Detected ng/mL Cutoff: 20 53 Opioid Interpretation See Comment 54 1 Because ethnic data is not always readily available, this report includes an eGFR for both -Americans and non- Americans. The National Kidney Disease Education Program (NKDEP) does not endorse the use of the MDRD equation for patients that are not between the ages of 18 and 70, are , have extremes of body size, muscle mass, or nutritional status, or are non- or non-. According to the National Kidney Foundation, irrespective of diagnosis, the stage of the disease is based on the level of kidney function: Stage Description GFR(mL/min/1.73 m(2)) 1 Kidney damage with normal or decreased GFR 90 2 Kidney damage with mild decrease in GFR 60-89 3 Moderate decrease in GFR 30-59 4 Severe decrease in GFR 15-29 5 Kidney failure <15 (or dialysis) 2 [facility] Severe Sepsis and Septic Shock Management Bundle Measure requires all lactic acids initially measuring >2.0 mmol/L be repeated. 3 Troponin-I testing on Plasma Separator Tubes (PST) has a known false positive rate of 0.20-0.40%. All positive troponins reflex immediately to secondary confirmatory testing. Using the [employer] DxI 800 Access Immunoassay systems, the 99th percentile upper reference limit was demonstrated to be < 0.03 ng/mL. 4 Result TnIDx:0.04 Called to [id number] at: 18:19:54 by:[email or web address] Read back by: [email or web address] Troponin-I testing on Plasma Separator Tubes (PST) has a known false positive rate of 0.20-0.40%. All positive troponins reflex immediately to secondary confirmatory testing. Using the [employer] Dx[employer] 800 Access Immunoassay systems, the 99th percentile upper reference limit was demonstrated to be < 0.03 ng/mL. 5 Reference ranges based on room air. 6 Result TnIDx:0.04 Called to [id number] at: 21:57:58 by:[id number] Read back by: [id number] Troponin-I testing on Plasma Separator Tubes (PST) has a known false positive rate of 0.20-0.40%. All positive troponins reflex immediately to secondary confirmatory testing. Using the [employer] DxI 800 Access Immunoassay systems, the 99th percentile upper reference limit was demonstrated to be < 0.03 ng/mL. 7 [facility] Severe Sepsis and Septic Shock Management Bundle Measure requires all lactic acids initially measuring >2.0 mmol/L be repeated. 8 SEE RESULT BELOW Name: CHAI KNOX : [address]: Amy Jimenez MD Acct: [id number] Unit: [id number] AGE: 69 Location: [place] [address] Re02/28/19 SEX: M Status: ADM IN SPEC: [id number] SOLEDAD: 02/28/19-22[address] [facility] [address]: Debora Siegel MD REQ: [id number] RECD: 02/28/19 STATUS: MORGAN HENDRICKS DR: Deonte Willett MD _ SOURCE: BLOOD,VENO SPDESC: ORDERED: Blood Cult Procedure Result Reported Site Aerobic Culture Bottle Final 03/05/19- 2308 ML No Growth Day 5 Anaerobic Culture Bottle Final 03/05/19- 2308 ML No Growth Day 5 * ML - Main Lab . END OF REPORT DEPARTMENT OF PATHOLOGY, [address] [place] [address] To Guido M.D. Director [facility] # [id number] 9 Because ethnic data is not always readily available, this report includes an eGFR for both -Americans and non- Americans. The National Kidney Disease Education Program (NKDEP) does not endorse the use of the MDRD equation for patients that are not between the ages of 18 and 70, are , have extremes of body size, muscle mass, or nutritional status, or are non- or non-. According to the National Kidney Foundation, irrespective of diagnosis, the stage of the disease is based on the level of kidney function: Stage Description GFR(mL/min/1.73 m(2)) 1 Kidney damage with normal or decreased GFR 90 2 Kidney damage with mild decrease in GFR 60-89 3 Moderate decrease in GFR 30-59 4 Severe decrease in GFR 15-29 5 Kidney failure <15 (or dialysis) 10 Standard intensity warfarin therapeutic range: 2.0-3.0 High intensity warfarin therapeutic range: 2.5-3.5 11 Reference ranges based on room air. 12 NON-FASTING 13 consistent w/ previous results 14 consistent w/ previous results 15 REFERENCE VALUE Cutoff: 500 16 REFERENCE VALUE Cutoff: 200 17 REFERENCE VALUE Cutoff: 100 18 REFERENCE VALUE Cutoff: 150 19 ADDITIONAL INFORMATION This report is intended for use in clinical monitoring or management of patients. It is not intended for use in employment-related testing. 20 REFERENCE VALUE Cutoff: 200 mg/L 21 Tylenol 3 22 Metabolite of codeine REFERENCE VALUE Cutoff: 100 23 Bertha Dumont, MS Contin; Also a minor metabolite (10%) of codeine and can be seen in low concentrations (<2,000 ng/mL) with poppy seed ingestion. 24 Metabolite of morphine REFERENCE VALUE Cutoff: 100 25 Metabolite of heroin 26 Lortab, [place], Vicodin; Also a very minor metabolite of codeine and impurity (<1%) of oxycodone. 27 Metabolite of hydrocodone 28 Metabolite of hydrocodone 29 Dilaudid, Exalgo; Also a metabolite of hydrocodone and a minor (<5%) metabolite of morphine. 30 Metabolite of hydromorphone REFERENCE VALUE Cutoff: 100 31 Endocet, Percocet, Oxycontin 32 Metabolite of oxycodone 33 Numorphan, Opana; Also a metabolite of oxycodone. 34 Metabolite of oxymorphone REFERENCE VALUE Cutoff: 100 35 Metabolite of oxymorphone 36 Actiq, Duragesic, Fentora 37 Metabolite of fentanyl 38 Demerol 39 Metabolite of meperidine 40 Narcan 41 Metabolite of naloxone REFERENCE VALUE Cutoff: 100 42 Dolophine 43 Metabolite of methadone 44 Darvon, Darvocet 45 Metabolite of propoxyphene 46 Tradol, Ultram, Ultracet 47 Metabolite of tramadol 48 Nucynta 49 Metabolite of tapentadol 50 Metabolite of tapentadol REFERENCE VALUE Cutoff: 100 51 Buprenex, Suboxone 52 Metabolite of buprenorphine 53 Metabolite of buprenorphine 54 Test detected the presence of oxycodone and several metabolites (noroxycodone, noroxymorphone, and ulvwzawguxx-6-zjfc-glucuronide). Suspect use of oxycodone and/or oxymorphone within the past three days. ADDITIONAL INFORMATION This test was developed and its performance characteristics determined by [facility] in a manner consistent with CLIA requirements. This test has not been cleared or approved by the U.S. Food and Drug Administration. Test Performed by: [facility] [address] [place] [address] Procedures Date Code Description Status 12/21/2018 55635 Pulse Oximetry Completed 12/30/2017 601914482 Diabetic Retinal Eye Exam Completed 02/08/2012 [id number] Colonoscopy Completed Medical Devices Description No Information Available Encounters Type Date Location Provider Dx Diagnosis Office Visit 12/21/2018 Main Office Deonte Masters, E11.42 Type 2 diabetes 3:40p M.DLora mellitus with diabetic polyneuropathy M06.09 Rheumatoid arthritis w/o rheumatoid factor, multiple sites I25.10 Athscl heart disease of [place] coronary artery w/o ang pctrs I73.9 Peripheral vascular disease, unspecified R05 Cough J44.9 Chronic obstructive pulmonary disease, unspecified Office Visit 10/26/2018 2:00p Main Office Tawana Gamboa 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 polyneuropathy 03/12/2019 M06.09 Rheumatoid arthritis without rheumatoid Deonte Masters M.D. 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 coronary artery with 03/12/2019 M54.5 Low back pain Deonte Masters M.D. 12/29/2018 R05 Cough Deonte Masters M.D. 12/29/2018 E11.42 Type 2 diabetes mellitus with diabetic Deonte Masters M.D. polyneuropathy 12/21/2018 E11.42 Type 2 diabetes mellitus with diabetic Deonte Masters M.D. polyneuropathy 12/21/2018 M06.09 Rheumatoid arthritis without rheumatoid Deonte Masters M.D. 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 12/21/2018 R05 Cough Deonte Masters M.D. 12/21/2018 J44.9 Chronic obstructive pulmonary disease, Deonte Masters M.D. unspecified 11/28/2018 E11.42 Type 2 diabetes mellitus with diabetic Deonte Masters M.D. 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 11/28/2018 N40.0 Benign prostatic hyperplasia without lower Deonte Masters M.D. urinary tract symptoms 10/26/2018 J44.1 Chronic obstructive pulmonary disease with Tawana Higginbotham NP (acute) exacerbat Plan of Treatment Future Appointment(s):04/26/2019 11:20 am - Deonte Masters M.D. at Main [facility]/12/2019 - Deonte Masters M.D.E11.42 Type 2 diabetes mellitus with diabetic polyneuropathyComments:continue present medication, medications reviewed after hsghxgjnsW96.09 Rheumatoid arthritis without rheumatoid factor, multiple sitComments:Continue followup with Dr. Rosenthal , continue qeylgwllntfN77.10 Atherosclerotic heart disease [place] coronary artery withComments:continue present medication,will call if there is any increase in the frequency or severity of angina , has routine follow up with Dr Norrsi54.5 Low back painComments:Symptoms are stable on present dose of oxycodone, OxyContin Lyrica gabapentin, and continue followup with the pain clinicFollow up:Followup:. (Follow up)AllNew Medication:Note - needs lancets for Freestyle 28 guage, dx e11.9Comments:Medication Management Patient Understands medications he's taking? Yes No Are there Barriersto Adherence? Yes No Has the patient been asked about herbal supplements and therapies, and OTC meds? Yes No Functional Status Description No Information Available Mental Status Description No Information Available Referrals Refer to Reason for Referral Status Appt Date [facility] referral for gait and balance Scheduled [address] [address] [phone]
[2019-03-15 19:17] VITALS: BP 153/78
== END 2019-03-15 19:15 ==
LOC: ED 12:26
DX: J44.9 Chronic obstructive pulmonary disease, unspecified (principal); F11.121 Opioid abuse with intoxication delirium; R41.82 Altered mental status, unspecified; W19.XXXA Unspecified fall, initial encounter; Y92.9 Unspecified place or not applicable; I25.10 Atherosclerotic heart disease of native coronary artery without angina pectoris; E11.621 Type 2 diabetes mellitus with foot ulcer; L97.509 Non-pressure chronic ulcer of other part of unspecified foot with unspecified severity; E11.42 Type 2 diabetes mellitus with diabetic polyneuropathy; F32.9 Major depressive disorder, single episode, unspecified; D64.9 Anemia, unspecified; E78.00 Pure hypercholesterolemia, unspecified; K21.9 Gastro-esophageal reflux disease without esophagitis; E11.22 Type 2 diabetes mellitus with diabetic chronic kidney disease; I12.9 Hypertensive chronic kidney disease with stage 1 through stage 4 chronic kidney disease, or unspecified chronic kidney disease; N18.9 Chronic kidney disease, unspecified; Z95.810 Presence of automatic (implantable) cardiac defibrillator; Z95.1 Presence of aortocoronary bypass graft; Z79.891 Long term (current) use of opiate analgesic; Z99.81 Dependence on supplemental oxygen; Z79.899 Other long term (current) drug therapy; Z85.118 Personal history of other malignant neoplasm of bronchus and lung; Z88.2 Allergy status to sulfonamides; Z88.8 Allergy status to other drugs, medicaments and biological substances; Z87.891 Personal history of nicotine dependence
CPT/HCPCS: 36415; 80053; 82550; 82803; 83605; 83735; 84443; 84484; 85025; 86140; 93005; 99282

== ENCOUNTER 2019-06-21 08:02 | Inpatient (IN) | payer MEDICARE, OTHER ==
--- OUTSIDE RECORDS SUMMARY | 2019-06-21 08:17 | XMS REPORT ---
:1950 Author Organization [facility] Team Providers Name Role Phone Unavailable Unavailable Unavailable Problems This patient has no known problems. Allergies, Adverse Reactions, Alerts Allergy Name Allergy Status Severity Reaction(s) Onset Inactive Treating Comments Type Date Date Clinician lisinopril Base Active Unknown Reaction Unknown Ingredient Unknown 7-16 metoprolol Base Active Unknown Reaction Interface Ingredient Unknown 7-16 clopidogrel Base Active Unknown Reaction Unknown Ingredient Unknown 7-16 Sulfa Unknown Active Unknown Reaction Interface (Sulfonamide Unknown 7-16 Antibiotics) Medications Ordered Filled Start Stop Current Ordering Indication Dosage Frequency Signature Comments Components Medication Medication Date Date Medication? Clinician (SIG) Name Name Acetaminoph Acetaminoph No Unknown Unknown Unknown en Tab* en Tab* 04-09 aspirin, aspirin, No Unknown Unknown Unknown buffered 81 buffered 81 3-18 mg mg tablet,sarah tablet,sarah yed release yed release mirtazapine mirtazapine No Unknown Unknown Unknown 15 mg 15 mg 3-18 tablet tablet Insulin Insulin No Unknown Unknown Unknown Glargine(*) Glargine(*) 6- Tiotropium Tiotropium No Unknown Unknown Unknown Cap.Inh* Cap.Inh* 8 tamsulosin tamsulosin No Unknown Unknown Unknown 0.4 mg 0.4 mg 8- capsule capsule omeprazole omeprazole No Unknown Unknown Unknown magnesium magnesium 8-29 20 mg 20 mg capsule,del capsule,del ayed ayed release release Levalbutero Levalbutero No Unknown Unknown Unknown l Hfa l Hfa 03-29 Inhaler* Inhaler* busPIRone busPIRone No Unknown Unknown Unknown 10 mg 10 mg 8-29 tablet tablet montelukast montelukast No Unknown Unknown Unknown 10 mg 10 mg 9-09 tablet tablet oxyCODONE 5 oxyCODONE 5 No Unknown Unknown Unknown mg mg 08-02 tablet,oral tablet,oral ONLY (not ONLY (not feeding feeding tubes) tubes) magnesium magnesium No Unknown Unknown Unknown oxide 400 oxide 400 4-04 mg (241.3 mg (241.3 mg mg magnesium) magnesium) tablet tablet sertraline sertraline No Unknown Unknown Unknown 25 mg 25 mg 4- tablet tablet simvastatin simvastatin No Unknown Unknown Unknown 20 mg 20 mg -04 tablet tablet pioglitazon pioglitazon No Unknown Unknown Unknown e 15 mg e 15 mg - tablet tablet Budesonide/ Budesonide/ No Unknown Unknown Unknown Formote Formote 11-02 160/4.5(Nf) 160/4.5(Nf) Pregabalin Pregabalin No Unknown Unknown Unknown Cap(*) Cap(*) 11-02 Insulin Insulin No Unknown Unknown Unknown Lispro* Lispro* 11-02 cholecalcif cholecalcif No Unknown Unknown Unknown alisia alisia 11-02 (vitamin (vitamin D3) 1,000 D3) 1,000 unit unit chewable chewable tablet tablet L Gasseri/B L Gasseri/B No Unknown Unknown Unknown Bifidum/B Bifidum/B 11-02 Longum Longum Multivitami Multivitami No Unknown Unknown Unknown ns/Minerals ns/Minerals 11-02 Tab* Tab* Oxycodone Oxycodone No Unknown Unknown Unknown Sr Tab(*) Sr Tab(*) 02-09 furosemide furosemide No Unknown Unknown Unknown 40 mg 40 mg -22 tablet tablet minocycline minocycline 2019- No Unknown Unknown Unknown -wipes 100 -wipes 100 03-01 mg combo mg combo pack pack amLODIPine amLODIPine No Unknown Unknown Unknown 5 mg tablet 5 mg tablet 03-08 Doxycycline Doxycycline No Unknown Unknown Unknown Cap(*) Cap(*) 03-08 Vital Signs Vital Name Observation Time Observation Value Comments SYSTOLIC mm[Hg] 2019-03-08 18:07:13 125 mm[Hg] mm[Hg] Method: Sit DIASTOLIC mm[Hg] 2019-03-08 18:07:13 59 mm[Hg] mm[Hg] Method: Sit PULSE 2019-03-08 18:07:13 84 /min /min RESP RATE 2019-03-08 18:07:13 18 /min /min TEMP 2019-03-08 18:07:13 96.9 [degF] Procedures This patient has no known procedures. Results Test Description Test Time Test Comments Text Results Atomic Results Result Comments Laboratory Studies 2019-03-08 12:13:00 Identifier [id number] Result Time Unknown 2019-03-08 12:13:00 Test Item Value Reference Range Comments Unknown (test code = 2339-0) 312 mg/dL Unknown 70-100 F Ordering Physician UnknownLaboratory Dpqgcfx2111-63-84 06:25:00Identifier [id number]- 6 Result Time 2019-03-08 06:25:00Unknown Test Item Value Reference Range Comments Unknown (test code = 2951-2) 136 mmol/L Unknown 135-145 F Ordering Physician UnknownLaboratory Hsawovb5646-83-80 06:25:00Identifier 30015- 6 Result Time 2019-03-08 06:25:00Unknown Test Item Value Reference Range Comments Unknown (test code = 2823-3) 3.7 mmol/L Unknown 3.5-5.0 F Ordering Physician UnknownLaboratory Vffyeuh1220-39-73 06:25:00Identifier [id number]- 6 Result Time 2019-03-08 06:25:00Unknown Test Item Value Reference Range Comments Unknown (test code = 2345-7) 175 mg/dL Unknown 70-100 F Ordering Physician UnknownLaboratory Reuydyy6074-03-53 06:25:00Identifier [id number]- 6 Result Time 2019-03-08 06:25:00Unknown Test Item Value Reference Range Comments Unknown (test code = 68964-3) 49.4 Unknown Unknown F Ordering Physician UnknownLaboratory Owikatt2515-75-49 06:25:00Identifier 71871- 6 Result Time 2019-03-08 06:25:00Unknown Test Item Value Reference Range Comments Unknown (test code = NullTestCode) 59.8 Unknown Unknown F Ordering Physician UnknownLaboratory Oynkbqt6535-10-23 06:25:00Identifier [id number]- 6 Result Time 2019-03-08 06:25:00Unknown Test Item Value Reference Range Comments Unknown (test code = 2160-0) 1.42 mg/dL Unknown 0.67-1.17 F Ordering Physician UnknownLaboratory Cwjaggl2588-88-63 06:25:00Identifier [id number]- 6 Result Time 2019-03-08 06:25:00Unknown Test Item Value Reference Range Comments Unknown (test code = 2075-0) 97 mmol/L Unknown 101-111 F Ordering Physician UnknownLaboratory Emdvram4377-07-37 06:25:00Identifier 70335- 6 Result Time 2019-03-08 06:25:00Unknown Test Item Value Reference Range Comments Unknown (test code = 2028-9) 33 mmol/L Unknown 22-32 F Ordering Physician UnknownLaboratory Yybbusl8062-99-20 06:25:00Identifier [id number]- 6 Result Time 2019-03-08 06:25:00Unknown Test Item Value Reference Range Comments Unknown (test code = 08580-6) 9.6 mg/dL Unknown 8.6-10.3 F Ordering Physician UnknownLaboratory Ssknhrb3996-74-71 06:25:00Identifier 14629- 6 Result Time 2019-03-08 06:25:00Unknown Test Item Value Reference Range Comments Unknown (test code = 3094-0) 28 mg/dL Unknown 6-24 F Ordering Physician UnknownLaboratory Htpnzrq7171-15-96 06:25:00Identifier 47572- 6 Result Time 2019-03-08 06:25:00Unknown Test Item Value Reference Range Comments Unknown (test code = 3097-3) 19.7 Unknown 8-20 F Ordering Physician UnknownLaboratory Rdszpav0167-91-56 06:25:00Identifier 74643- 6 Result Time 2019-03-08 06:25:00Unknown Test Item Value Reference Range Comments Unknown (test code = 23981-2) 6 mmol/L Unknown 2-11 F Ordering Physician UnknownLaboratory Efoccnf3213-26-49 06:25:00Identifier 38351- 6 Result Time 2019-03-08 06:25:00Unknown Test Item Value Reference Range Comments Unknown (test code = 83085-6) 7.7 10^3/uL Unknown 3.5-10.8 F Ordering Physician UnknownLaboratory Hxgftpn3140-62-40 06:25:00Identifier 96056- 6 Result Time 2019-03-08 06:25:00Unknown Test Item Value Reference Range Comments Unknown (test code = 788-0) 15 % Unknown 10-15 F Ordering Physician UnknownLaboratory Ltgokxm8013-82-78 06:25:00Identifier 30036- 6 Result Time 2019-03-08 06:25:00Unknown Test Item Value Reference Range Comments Unknown (test code = 789-8) 3.94 10^6 /uL Unknown 4.18-5.48 F Ordering Physician UnknownLaboratory Mkjtkgp4602-93-45 06:25:00Identifier 40202- 6 Result Time 2019-03-08 06:25:00Unknown Test Item Value Reference Range Comments Unknown (test code = 777-3) 164 10^3/uL Unknown 150-450 F Ordering Physician UnknownLaboratory Blqvpvc5295-11-60 06:25:00Identifier 63567- 6 Result Time 2019-03-08 06:25:00Unknown Test Item Value Reference Range Comments Unknown (test code = 32008-4) 7.8 fL Unknown 7.4-10.4 F Ordering Physician UnknownLaboratory Efmtxbe4680-54-13 06:25:00Identifier 52591- 6 Result Time 2019-03-08 06:25:00Unknown Test Item Value Reference Range Comments Unknown (test code = 787-2) 81 fL Unknown 80-94 F Ordering Physician UnknownLaboratory Eghtrky2436-20-21 06:25:00Identifier 31026- 6 Result Time 2019-03-08 06:25:00Unknown Test Item Value Reference Range Comments Unknown (test code = 786-4) 34 g/dL Unknown 31-36 F Ordering Physician UnknownLaboratory Jcfqezl5955-47-87 06:25:00Identifier 06945- 6 Result Time 2019-03-08 06:25:00Unknown Test Item Value Reference Range Comments Unknown (test code = 785-6) 27 pg Unknown 27-31 F Ordering Physician UnknownLaboratory Blhjrzh3592-36-38 06:25:00Identifier 19879- 6 Result Time 2019-03-08 06:25:00Unknown Test Item Value Reference Range Comments Unknown (test code = 718-7) 10.8 g/dL Unknown 14.0-18.0 F Ordering Physician UnknownLaboratory Jhzjsup5032-14-63 06:25:00Identifier 07727- 6 Result Time 2019-03-08 06:25:00Unknown Test Item Value Reference Range Comments Unknown (test code = 4544-3) 32 % Unknown 42-52 F Ordering Physician UnknownLaboratory Vqgythn4198-53-66 06:45:00Identifier 80074- 6 Result Time 2019-03-06 06:45:00Unknown Test Item Value Reference Range Comments Unknown (test code = 2777-1) 3.3 mg/dL Unknown 2.5-5.0 F Ordering Physician UnknownLaboratory Zuwkzvf4167-34-48 06:45:00Identifier [id number]- 6 Result Time 2019-03-06 06:45:00Unknown Test Item Value Reference Range Comments Unknown (test code = 28302-9) 2.1 mg/dL Unknown 1.9-2.7 F Ordering Physician UnknownLaboratory Wdindnq5521-16-91 13:59:00Identifier 80307- 6 Result Time 2019-03-04 13:59:00Unknown Test Item Value Reference Range Comments Unknown (test code = NullTestCode) Unknown Unknown F Ordering Physician UnknownLaboratory Wvmfsug5188-55-34 13:59:00Identifier [id number]- 6 Result Time 2019-03-04 13:59:00Unknown Test Item Value Reference Range Comments Unknown (test code = 3034-6) 203 mg/dL Unknown 203-362 F Ordering Physician UnknownLaboratory Laqkpjv3237-08-06 13:59:00Identifier 28820- 6 Result Time 2019-03-04 13:59:00Unknown Test Item Value Reference Range Comments Unknown (test code = 2500-7) 284 mcg/dL Unknown 250-450 F Ordering Physician UnknownLaboratory Sfssamw9977-64-53 13:59:00Identifier 80226- 6 Result Time 2019-03-04 13:59:00Unknown Test Item Value Reference Range Comments Unknown (test code = NullTestCode) 13 % Unknown 15-55 F Ordering Physician UnknownLaboratory Wzxuyki1041-71-05 13:59:00Identifier 78433- 6 Result Time 2019-03-04 13:59:00Unknown Test Item Value Reference Range Comments Unknown (test code = 2498-4) 36 ug/dL Unknown 50-212 F Ordering Physician UnknownLaboratory Xzlgpvw9416-54-78 17:35:00Identifier 86152- 6 Result Time 2019-03-01 17:35:00Unknown Test Item Value Reference Range Comments Unknown (test code = 2132-9) 866 pg/mL Unknown 180-914 F Ordering Physician UnknownLaboratory Ujegtmc7670-24-24 17:35:00Identifier 31431- 6 Result Time 2019-03-01 17:35:00Unknown Test Item Value Reference Range Comments Unknown (test code = 3053-6) 51 ng/dL Unknown 87-178 F Ordering Physician UnknownLaboratory Rkgtvst9460-90-86 17:35:00Identifier 92243- 6 Result Time 2019-03-01 17:35:00Unknown Test Item Value Reference Range Comments Unknown (test code = 3051-0) 3.10 pg/mL Unknown 2.5-3.9 F Ordering Physician UnknownLaboratory Qpwfesu7535-45-78 17:35:00Identifier 40136- 6 Result Time 2019-03-01 17:35:00Unknown Test Item Value Reference Range Comments Unknown (test code = 3024-7) 0.86 ng/dL Unknown 0.61-1.12 F Ordering Physician UnknownLaboratory Bpqahqs9550-31-27 17:35:00Identifier 94813- 6 Result Time 2019-03-01 17:35:00Unknown Test Item Value Reference Range Comments Unknown (test code = 2157-6) 52 U/L Unknown 10-223 F Ordering Physician UnknownLaboratory Uuucgcq7528-03-45 17:35:00Identifier 25023- 6 Result Time 2019-03-01 17:35:00Unknown Test Item Value Reference Range Comments Unknown (test code = 58884-7) 41 mcmol/L Unknown 16-53 F Ordering Physician UnknownLaboratory Vsiyixc1825-95-26 16:21:00Identifier 64672- 6 Result Time 2019-03-01 16:21:00Unknown Test Item Value Reference Range Comments Unknown (test code = 83788-6) 0.10 ng/mL Unknown Unknown F Ordering Physician UnknownLaboratory Jhynorp6369-21-61 05:20:00Identifier 05668- 6 Result Time 2019-03-01 05:20:00Unknown Test Item Value Reference Range Comments Unknown (test code = 85039-3) 0.0 Unknown Unknown F Ordering Physician UnknownLaboratory Lbfnjei1495-34-52 05:20:00Identifier 72082- 6 Result Time 2019-03-01 05:20:00Unknown Test Item Value Reference Range Comments Unknown (test code = 771-6) 0.0 10^3/ul Unknown Unknown F Ordering Physician UnknownLaboratory Nngwbic8292-56-61 05:20:00Identifier 17401- 6 Result Time 2019-03-01 05:20:00Unknown Test Item Value Reference Range Comments Unknown (test code = 770-8) 92.0 % Unknown Unknown F Ordering Physician UnknownLaboratory Sibmyba9453-59-82 05:20:00Identifier 41809- 6 Result Time 2019-03-01 05:20:00Unknown Test Item Value Reference Range Comments Unknown (test code = 5905-5) 1.8 % Unknown Unknown F Ordering Physician UnknownLaboratory Qrbpbah8727-60-57 05:20:00Identifier 82871- 6 Result Time 2019-03-01 05:20:00Unknown Test Item Value Reference Range Comments Unknown (test code = 736-9) 6.0 % Unknown Unknown F Ordering Physician UnknownLaboratory Vnhtzue4065-10-85 05:20:00Identifier 47141- 6 Result Time 2019-03-01 05:20:00Unknown Test Item Value Reference Range Comments Unknown (test code = 713-8) 0.0 % Unknown Unknown F Ordering Physician UnknownLaboratory Qgehbvw6040-67-13 05:20:00Identifier 46322- 6 Result Time 2019-03-01 05:20:00Unknown Test Item Value Reference Range Comments Unknown (test code = 706-2) 0.2 % Unknown Unknown F Ordering Physician UnknownLaboratory Wkzplqj3444-32-42 05:20:00Identifier 98151- 6 Result Time 2019-03-01 05:20:00Unknown Test Item Value Reference Range Comments Unknown (test code = BAE4987) 7.0 10^3/ul Unknown 1.5-7.7 F Ordering Physician UnknownLaboratory Nptispy3207-82-91 05:20:00Identifier 71869- 6 Result Time 2019-03-01 05:20:00Unknown Test Item Value Reference Range Comments Unknown (test code = 742-7) 0.1 10^3/ul Unknown 0-0.8 F Ordering Physician UnknownLaboratory Fyvpuay3114-27-69 05:20:00Identifier 27165- 6 Result Time 2019-03-01 05:20:00Unknown Test Item Value Reference Range Comments Unknown (test code = 731-0) 0.5 10^3/ul Unknown 1.0-4.8 F Ordering Physician UnknownLaboratory Nvttilx9636-93-89 05:20:00Identifier 83847- 6 Result Time 2019-03-01 05:20:00Unknown Test Item Value Reference Range Comments Unknown (test code = 711-2) 0.0 10^3/ul Unknown 0-0.6 F Ordering Physician UnknownLaboratory Kckteem1179-84-33 05:20:00Identifier 38260- 6 Result Time 2019-03-01 05:20:00Unknown Test Item Value Reference Range Comments Unknown (test code = 704-7) 0.0 10^3/ul Unknown 0-0.2 F Ordering Physician UnknownLaboratory Wxpvqdj6832-82-04 01:05:00Identifier 41446- 6 Result Time 2019-03-01 01:05:00Unknown Test Item Value Reference Range Comments Unknown (test code = 2744-1) 7.37 Unknown 7.35-7.45 F Ordering Physician UnknownLaboratory Bhzqobe2964-53-73 01:05:00Identifier 28107- 6 Result Time 2019-03-01 01:05:00Unknown Test Item Value Reference Range Comments Unknown (test code = 19720-9) 211 mmHg Unknown 80-100 F Ordering Physician UnknownLaboratory Djublnd6467-98-70 01:05:00Identifier 68922- 6 Result Time 2019-03-01 01:05:00Unknown Test Item Value Reference Range Comments Unknown (test code = NullTestCode) 51 mmHg Unknown 35-45 F Ordering Physician UnknownLaboratory Raqvymp8145-65-34 01:05:00Identifier 30606- 6 Result Time 2019-03-01 01:05:00Unknown Test Item Value Reference Range Comments Unknown (test code = 2708-6) 99.9 % Unknown 94.0-98.0 F Ordering Physician UnknownLaboratory Qdbepsv8859-70-58 01:05:00Identifier 98184- 6 Result Time 2019-03-01 01:05:00Unknown Test Item Value Reference Range Comments Unknown (test code = 1960-4) 27.4 mmol/L Unknown 19-31 F Ordering Physician UnknownLaboratory Niifyov6544-54-41 01:05:00Identifier 65386- 6 Result Time 2019-03-01 01:05:00Unknown Test Item Value Reference Range Comments Unknown (test code = 1925-7) 3.1 mmol/L Unknown -2.0-2.0 F Ordering Physician UnknownLaboratory Dvfcmha6741-64-92 01:05:00Identifier 94697- 6 Result Time 2019-03-01 01:05:00Unknown Test Item Value Reference Range Comments Unknown (test code = NullTestCode) 80 Unknown Unknown F Ordering Physician UnknownLaboratory Pdmboad6120-15-48 01:05:00Identifier 13835- 6 Result Time 2019-03-01 01:05:00Unknown Test Item Value Reference Range Comments Unknown (test code = NullTestCode) 500 Unknown Unknown F Ordering Physician UnknownLaboratory Qhewamq1553-97-40 01:05:00Identifier 98084- 6 Result Time 2019-03-01 01:05:00Unknown Test Item Value Reference Range Comments Unknown (test code = NullTestCode) 15 Unknown Unknown F Ordering Physician UnknownLaboratory Trodyqv4473-82-70 01:05:00Identifier 74571- 6 Result Time 2019-03-01 01:05:00Unknown Test Item Value Reference Range Comments Unknown (test code = NullTestCode) 5 Unknown Unknown F Ordering Physician UnknownLaboratory Orvyqwq4698-84-86 20:56:00Identifier [id number]- 6 Result Time 2019-02-28 20:56:00Unknown Test Item Value Reference Range Comments Unknown (test code = 3016-3) 1.25 mcIU/mL Unknown 0.34-5.60 F Ordering Physician UnknownLaboratory Jphuwcm3021-32-66 20:56:00Identifier 86784- 6 Result Time 2019-02-28 20:56:00Unknown Test Item Value Reference Range Comments Unknown (test code = 2885-2) 7.0 g/dL Unknown 6.4-8.9 F Ordering Physician UnknownLaboratory Wccztif3144-84-17 20:56:00Identifier 44253- 6 Result Time 2019-02-28 20:56:00Unknown Test Item Value Reference Range Comments Unknown (test code = 1975-2) 0.50 mg/dL Unknown 0.2-1.0 F Ordering Physician UnknownLaboratory Dsmfmjx1935-24-69 20:56:00Identifier 57090- 6 Result Time 2019-02-28 20:56:00Unknown Test Item Value Reference Range Comments Unknown (test code = NullTestCode) 3.4 g/dL Unknown 2-4 F Ordering Physician UnknownLaboratory Ekyxtrk8835-05-56 20:56:00Identifier 22516- 6 Result Time 2019-02-28 20:56:00Unknown Test Item Value Reference Range Comments Unknown (test code = 1988-5) 64.61 mg/L Unknown 0-8.00 F Ordering Physician UnknownLaboratory Xqzltmp6115-80-60 20:56:00Identifier 94735- 6 Result Time 2019-02-28 20:56:00Unknown Test Item Value Reference Range Comments Unknown (test code = 1920-8) 16 U/L Unknown 13-39 F Ordering Physician UnknownLaboratory Yrmwcyt1754-76-86 20:56:00Identifier 72654- 6 Result Time 2019-02-28 20:56:00Unknown Test Item Value Reference Range Comments Unknown (test code = 6768-6) 60 U/L Unknown 34-104 F Ordering Physician UnknownLaboratory Wazalxe4510-71-01 20:56:00Identifier 14098- 6 Result Time 2019-02-28 20:56:00Unknown Test Item Value Reference Range Comments Unknown (test code = 1759-0) 1.1 Unknown 1-3 F Ordering Physician UnknownLaboratory Txfqwgi6850-87-24 20:56:00Identifier 27242- 6 Result Time 2019-02-28 20:56:00Unknown Test Item Value Reference Range Comments Unknown (test code = 61887-2) 3.6 g/dL Unknown 3.2-5.2 F Ordering Physician UnknownLaboratory Jsvcjvb5283-65-08 20:56:00Identifier 57753- 6 Result Time 2019-02-28 20:56:00Unknown Test Item Value Reference Range Comments Unknown (test code = 1742-6) 11 U/L Unknown 7-52 F Ordering Physician UnknownLaboratory Mvkqanj5772-83-92 20:56:00Identifier 66831- 6 Result Time 2019-02-28 20:56:00Unknown Test Item Value Reference Range Comments Unknown (test code = 92966-8) 224 pg/mL Unknown Unknown F Ordering Physician UnknownLaboratory Sljpoaz2962-54-63 20:56:00Identifier 96658- 6 Result Time 2019-02-28 20:56:00Unknown Test Item Value Reference Range Comments Unknown (test code = 2524-7) 1.4 mmol/L Unknown 0.5-2.0 F Ordering Physician UnknownLaboratory Mezorzh2678-33-83 20:56:00Identifier 63899- 6 Result Time 2019-02-28 20:56:00Unknown Test Item Value Reference Range Comments Unknown (test code = 84610-7) 1.12 Unknown 0.82-1.09 F Ordering Physician UnknownLaboratory Jylplnh1740-16-45 20:56:00Identifier 25233- 6 Result Time 2019-02-28 20:56:00Unknown Test Item Value Reference Range Comments Unknown (test code = 62998-0) 36.2 seconds Unknown 26.0-38.0 F Ordering Physician UnknownLaboratory Frqckml8789-60-46 20:49:00Identifier 83083- 6 Result Time 2019-02-28 20:49:00Unknown Test Item Value Reference Range Comments Unknown (test code = NullTestCode) 6.0 Unknown 5-9 F Ordering Physician UnknownLaboratory Wiokekt7273-61-99 20:49:00Identifier 02784- 6 Result Time 2019-02-28 20:49:00Unknown Test Item Value Reference Range Comments Unknown (test code = 87734-6) 1.008 Unknown 1.010-1.030 F Ordering Physician UnknownLaboratory Ogakryi5207-71-92 17:41:00Identifier 61303- 6 Result Time 2019-02-28 17:41:00Unknown Test Item Value Reference Range Comments Unknown (test code = 2746-6) 7.38 Unknown 7.32-7.43 F Ordering Physician UnknownLaboratory Jrpyiol8488-98-70 17:41:00Identifier 02842- 6 Result Time 2019-02-28 17:41:00Unknown Test Item Value Reference Range Comments Unknown (test code = 2705-2) 51.0 mmHg Unknown 35-45 F Ordering Physician UnknownLaboratory Fauhgvk2408-54-09 17:41:00Identifier 91032- 6 Result Time 2019-02-28 17:41:00Unknown Test Item Value Reference Range Comments Unknown (test code = 2021-4) 61 mmHg Unknown 41-51 F Ordering Physician UnknownLaboratory Tyspetb2848-10-59 17:41:00Identifier 62780- 6 Result Time 2019-02-28 17:41:00Unknown Test Item Value Reference Range Comments Unknown (test code = 73294-9) 86.2 % Unknown 70-80 F Ordering Physician UnknownLaboratory Dzxedxl4809-05-37 17:41:00Identifier 04305- 6 Result Time 2019-02-28 17:41:00Unknown Test Item Value Reference Range Comments Unknown (test code = NullTestCode) 31.3 mmol/L Unknown 24-28 F Ordering Physician UnknownLaboratory Ldqglue3908-21-79 17:41:00Identifier 89563- 6 Result Time 2019-02-28 17:41:00Unknown Test Item Value Reference Range Comments Unknown (test code = NullTestCode) 8.7 mmol/L Unknown 0.0-4.0 F Ordering Physician UnknownLaboratory Gfwgwpq2892-89-68 08:40:00Identifier 63782- 6 Result Time 2019-02-10 08:40:00Unknown Test Item Value Reference Range Comments Unknown (test code = 4537-7) 68 mm/Hr Unknown 0-19 F Ordering Physician Unknown
--- OUTSIDE RECORDS SUMMARY | 2019-06-21 08:18 | XMS REPORT ---
:1950 Author Organization [facility] Care Team Providers Name Role Phone Unavailable [...] Result Comments Laboratory Studies 2019-03-08 12:13:00 Identifier [id number] Result Time Unknown 2019-03-08 12:13:00 Test Item Value Reference Range Comments Unknown (test code = 2339-0) 312 mg/dL Unknown 70-100 F Ordering Physician UnknownLaboratory Eahctla8107-86-51 06:25:00Identifier 95358- 6 Result Time 2019-03-08 06:25:00Unknown Test Item Value Reference Range Comments Unknown (test code = 2951-2) 136 mmol/L Unknown 135-145 F Ordering Physician UnknownLaboratory Ukpqiwo6678-56-60 06:25:00Identifier 60095- 6 Result Time 2019-03-08 06:25:00Unknown Test Item Value Reference Range Comments Unknown (test code = 2823-3) 3.7 mmol/L Unknown 3.5-5.0 F Ordering Physician UnknownLaboratory Hwmepdy8791-60-89 06:25:00Identifier 44521- 6 Result Time 2019-03-08 06:25:00Unknown Test Item Value Reference Range Comments Unknown (test code = 2345-7) 175 mg/dL Unknown 70-100 F Ordering Physician UnknownLaboratory Gpovqdd4200-73-90 06:25:00Identifier 44285- 6 Result Time 2019-03-08 06:25:00Unknown Test Item Value Reference Range Comments Unknown (test code = 03302-8) 49.4 Unknown Unknown F Ordering Physician UnknownLaboratory Ynqeaij2890-01-32 06:25:00Identifier 77739- 6 Result Time 2019-03-08 06:25:00Unknown Test Item Value Reference Range Comments Unknown (test code = NullTestCode) 59.8 Unknown Unknown F Ordering Physician UnknownLaboratory Ewhxgri0319-74-50 06:25:00Identifier 36735- 6 Result Time 2019-03-08 06:25:00Unknown Test Item Value Reference Range Comments Unknown (test code = 2160-0) 1.42 mg/dL Unknown 0.67-1.17 F Ordering Physician UnknownLaboratory Tfeabhk4682-12-08 06:25:00Identifier 07544- 6 Result Time 2019-03-08 06:25:00Unknown Test Item Value Reference Range Comments Unknown (test code = 2075-0) 97 mmol/L Unknown 101-111 F Ordering Physician UnknownLaboratory Klgjavs6901-30-94 06:25:00Identifier 17009- 6 Result Time 2019-03-08 06:25:00Unknown Test Item Value Reference Range Comments Unknown (test code = 2028-9) 33 mmol/L Unknown 22-32 F Ordering Physician UnknownLaboratory Gboqyfz8776-26-40 06:25:00Identifier 48045- 6 Result Time 2019-03-08 06:25:00Unknown Test Item Value Reference Range Comments Unknown (test code = 31034-2) 9.6 mg/dL Unknown 8.6-10.3 F Ordering Physician UnknownLaboratory Zvnyqml2204-74-77 06:25:00Identifier 02397- 6 Result Time 2019-03-08 06:25:00Unknown Test Item Value Reference Range Comments Unknown (test code = 3094-0) 28 mg/dL Unknown 6-24 F Ordering Physician UnknownLaboratory Jonatiz0134-02-11 06:25:00Identifier 36628- 6 Result Time 2019-03-08 06:25:00Unknown Test Item Value Reference Range Comments Unknown (test code = 3097-3) 19.7 Unknown 8-20 F Ordering Physician UnknownLaboratory Zkjtxqy6096-79-33 06:25:00Identifier 70874- 6 Result Time 2019-03-08 06:25:00Unknown Test Item Value Reference Range Comments Unknown (test code = 42963-2) 6 mmol/L Unknown 2-11 F Ordering Physician UnknownLaboratory Wctzdlh3967-78-72 06:25:00Identifier 32450- 6 Result Time 2019-03-08 06:25:00Unknown Test Item Value Reference Range Comments Unknown (test code = 57404-7) 7.7 10^3/uL Unknown 3.5-10.8 F Ordering Physician UnknownLaboratory Iizofoi6962-84-32 06:25:00Identifier 85208- 6 Result Time 2019-03-08 06:25:00Unknown Test Item Value Reference Range Comments Unknown (test code = 788-0) 15 % Unknown 10-15 F Ordering Physician UnknownLaboratory Udmfrnr8786-34-22 06:25:00Identifier 79302- 6 Result Time 2019-03-08 06:25:00Unknown Test Item Value Reference Range Comments Unknown (test code = 789-8) 3.94 10^6 /uL Unknown 4.18-5.48 F Ordering Physician UnknownLaboratory Zoebvii0827-45-84 06:25:00Identifier 62837- 6 Result Time 2019-03-08 06:25:00Unknown Test Item Value Reference Range Comments Unknown (test code = 777-3) 164 10^3/uL Unknown 150-450 F Ordering Physician UnknownLaboratory Jkgvyvc7761-64-91 06:25:00Identifier 02934- 6 Result Time 2019-03-08 06:25:00Unknown Test Item Value Reference Range Comments Unknown (test code = 75972-8) 7.8 fL Unknown 7.4-10.4 F Ordering Physician UnknownLaboratory Tcjbepx0350-76-67 06:25:00Identifier 54407- 6 Result Time 2019-03-08 06:25:00Unknown Test Item Value Reference Range Comments Unknown (test code = 787-2) 81 fL Unknown 80-94 F Ordering Physician UnknownLaboratory Qukjiwr2649-86-28 06:25:00Identifier 59568- 6 Result Time 2019-03-08 06:25:00Unknown Test Item Value Reference Range Comments Unknown (test code = 786-4) 34 g/dL Unknown 31-36 F Ordering Physician UnknownLaboratory Laesunr6759-31-94 06:25:00Identifier 80889- 6 Result Time 2019-03-08 06:25:00Unknown Test Item Value Reference Range Comments Unknown (test code = 785-6) 27 pg Unknown 27-31 F Ordering Physician UnknownLaboratory Pnhgadq3392-34-47 06:25:00Identifier 94592- 6 Result Time 2019-03-08 06:25:00Unknown Test Item Value Reference Range Comments Unknown (test code = 718-7) 10.8 g/dL Unknown 14.0-18.0 F Ordering Physician UnknownLaboratory Rbgyasv3263-68-39 06:25:00Identifier 23561- 6 Result Time 2019-03-08 06:25:00Unknown Test Item Value Reference Range Comments Unknown (test code = 4544-3) 32 % Unknown 42-52 F Ordering Physician UnknownLaboratory Dhtyycg0221-12-80 06:45:00Identifier 61632- 6 Result Time 2019-03-06 06:45:00Unknown Test Item Value Reference Range Comments Unknown (test code = 2777-1) 3.3 mg/dL Unknown 2.5-5.0 F Ordering Physician UnknownLaboratory Vpqvfcy2479-75-19 06:45:00Identifier 22148- 6 Result Time 2019-03-06 06:45:00Unknown Test Item Value Reference Range Comments Unknown (test code = 54829-3) 2.1 mg/dL Unknown 1.9-2.7 F Ordering Physician UnknownLaboratory Zbhhhss2992-52-63 13:59:00Identifier 97411- 6 Result Time 2019-03-04 13:59:00Unknown Test Item Value Reference Range Comments Unknown (test code = NullTestCode) Unknown Unknown F Ordering Physician UnknownLaboratory Yywkste9743-10-15 13:59:00Identifier 51447- 6 Result Time 2019-03-04 13:59:00Unknown Test Item Value Reference Range Comments Unknown (test code = 3034-6) 203 mg/dL Unknown 203-362 F Ordering Physician UnknownLaboratory Aqqtuhl0219-47-40 13:59:00Identifier 83858- 6 Result Time 2019-03-04 13:59:00Unknown Test Item Value Reference Range Comments Unknown (test code = 2500-7) 284 mcg/dL Unknown 250-450 F Ordering Physician UnknownLaboratory Jvncmmq9435-33-67 13:59:00Identifier 27869- 6 Result Time 2019-03-04 13:59:00Unknown Test Item Value Reference Range Comments Unknown (test code = NullTestCode) 13 % Unknown 15-55 F Ordering Physician UnknownLaboratory Vijihgw0900-09-93 13:59:00Identifier 02126- 6 Result Time 2019-03-04 13:59:00Unknown Test Item Value Reference Range Comments Unknown (test code = 2498-4) 36 ug/dL Unknown 50-212 F Ordering Physician UnknownLaboratory Hvbupsl1196-47-81 17:35:00Identifier 85851- 6 Result Time 2019-03-01 17:35:00Unknown Test Item Value Reference Range Comments Unknown (test code = 2132-9) 866 pg/mL Unknown 180-914 F Ordering Physician UnknownLaboratory Zleapph6536-86-56 17:35:00Identifier 82978- 6 Result Time 2019-03-01 17:35:00Unknown Test Item Value Reference Range Comments Unknown (test code = 3053-6) 51 ng/dL Unknown 87-178 F Ordering Physician UnknownLaboratory Momjtpa6359-44-11 17:35:00Identifier 48034- 6 Result Time 2019-03-01 17:35:00Unknown Test Item Value Reference Range Comments Unknown (test code = 3051-0) 3.10 pg/mL Unknown 2.5-3.9 F Ordering Physician UnknownLaboratory Fozmufp7979-05-92 17:35:00Identifier 62826- 6 Result Time 2019-03-01 17:35:00Unknown Test Item Value Reference Range Comments Unknown (test code = 3024-7) 0.86 ng/dL Unknown 0.61-1.12 F Ordering Physician UnknownLaboratory Jedrbpz3783-14-68 17:35:00Identifier 49051- 6 Result Time 2019-03-01 17:35:00Unknown Test Item Value Reference Range Comments Unknown (test code = 2157-6) 52 U/L Unknown 10-223 F Ordering Physician UnknownLaboratory Xkkgsdt3354-43-57 17:35:00Identifier 46689- 6 Result Time 2019-03-01 17:35:00Unknown Test Item Value Reference Range Comments Unknown (test code = 16706-4) 41 mcmol/L Unknown 16-53 F Ordering Physician UnknownLaboratory Gdzsyma0721-56-70 16:21:00Identifier 86324- 6 Result Time 2019-03-01 16:21:00Unknown Test Item Value Reference Range Comments Unknown (test code = 32971-5) 0.10 ng/mL Unknown Unknown F Ordering Physician UnknownLaboratory Xwvqdpd5594-43-24 05:20:00Identifier 28727- 6 Result Time 2019-03-01 05:20:00Unknown Test Item Value Reference Range Comments Unknown (test code = 21505-4) 0.0 Unknown Unknown F Ordering Physician UnknownLaboratory Cvcfthn7517-42-73 05:20:00Identifier 23925- 6 Result Time 2019-03-01 05:20:00Unknown Test Item Value Reference Range Comments Unknown (test code = 771-6) 0.0 10^3/ul Unknown Unknown F Ordering Physician UnknownLaboratory Tqdfdcu3761-24-22 05:20:00Identifier 35140- 6 Result Time 2019-03-01 05:20:00Unknown Test Item Value Reference Range Comments Unknown (test code = 770-8) 92.0 % Unknown Unknown F Ordering Physician UnknownLaboratory Waeimpe7162-07-00 05:20:00Identifier 09344- 6 Result Time 2019-03-01 05:20:00Unknown Test Item Value Reference Range Comments Unknown (test code = 5905-5) 1.8 % Unknown Unknown F Ordering Physician UnknownLaboratory Owecahf6499-10-66 05:20:00Identifier 98521- 6 Result Time 2019-03-01 05:20:00Unknown Test Item Value Reference Range Comments Unknown (test code = 736-9) 6.0 % Unknown Unknown F Ordering Physician UnknownLaboratory Flucbwu9048-77-12 05:20:00Identifier 98745- 6 Result Time 2019-03-01 05:20:00Unknown Test Item Value Reference Range Comments Unknown (test code = 713-8) 0.0 % Unknown Unknown F Ordering Physician UnknownLaboratory Yulkaxk6481-53-34 05:20:00Identifier 64347- 6 Result Time 2019-03-01 05:20:00Unknown Test Item Value Reference Range Comments Unknown (test code = 706-2) 0.2 % Unknown Unknown F Ordering Physician UnknownLaboratory Wubalnb3124-39-36 05:20:00Identifier 67612- 6 Result Time 2019-03-01 05:20:00Unknown Test Item Value Reference Range Comments Unknown (test code = VDV9608) 7.0 10^3/ul Unknown 1.5-7.7 F Ordering Physician UnknownLaboratory Muzpxws1603-45-70 05:20:00Identifier 70644- 6 Result Time 2019-03-01 05:20:00Unknown Test Item Value Reference Range Comments Unknown (test code = 742-7) 0.1 10^3/ul Unknown 0-0.8 F Ordering Physician UnknownLaboratory Fziibub6506-02-46 05:20:00Identifier 55358- 6 Result Time 2019-03-01 05:20:00Unknown Test Item Value Reference Range Comments Unknown (test code = 731-0) 0.5 10^3/ul Unknown 1.0-4.8 F Ordering Physician UnknownLaboratory Dtjoxtc8200-10-38 05:20:00Identifier 14682- 6 Result Time 2019-03-01 05:20:00Unknown Test Item Value Reference Range Comments Unknown (test code = 711-2) 0.0 10^3/ul Unknown 0-0.6 F Ordering Physician UnknownLaboratory Rdazpfu3224-92-84 05:20:00Identifier 53760- 6 Result Time 2019-03-01 05:20:00Unknown Test Item Value Reference Range Comments Unknown (test code = 704-7) 0.0 10^3/ul Unknown 0-0.2 F Ordering Physician UnknownLaboratory Vblxuto7480-69-16 01:05:00Identifier 13657- 6 Result Time 2019-03-01 01:05:00Unknown Test Item Value Reference Range Comments Unknown (test code = 2744-1) 7.37 Unknown 7.35-7.45 F Ordering Physician UnknownLaboratory Eskhqqm9630-53-03 01:05:00Identifier 70371- 6 Result Time 2019-03-01 01:05:00Unknown Test Item Value Reference Range Comments Unknown (test code = 79592-1) 211 mmHg Unknown 80-100 F Ordering Physician UnknownLaboratory Jpgugdg5387-90-85 01:05:00Identifier 04262- 6 Result Time 2019-03-01 01:05:00Unknown Test Item Value Reference Range Comments Unknown (test code = NullTestCode) 51 mmHg Unknown 35-45 F Ordering Physician UnknownLaboratory Nabchjh0857-31-36 01:05:00Identifier 60802- 6 Result Time 2019-03-01 01:05:00Unknown Test Item Value Reference Range Comments Unknown (test code = 2708-6) 99.9 % Unknown 94.0-98.0 F Ordering Physician UnknownLaboratory Ltibrcb6644-44-93 01:05:00Identifier 90604- 6 Result Time 2019-03-01 01:05:00Unknown Test Item Value Reference Range Comments Unknown (test code = 1960-4) 27.4 mmol/L Unknown 19-31 F Ordering Physician UnknownLaboratory Bjhteac9452-73-98 01:05:00Identifier 76796- 6 Result Time 2019-03-01 01:05:00Unknown Test Item Value Reference Range Comments Unknown (test code = 1925-7) 3.1 mmol/L Unknown -2.0-2.0 F Ordering Physician UnknownLaboratory Swmjqtn6274-56-36 01:05:00Identifier 12861- 6 Result Time 2019-03-01 01:05:00Unknown Test Item Value Reference Range Comments Unknown (test code = NullTestCode) 80 Unknown Unknown F Ordering Physician UnknownLaboratory Qvpujml7472-83-57 01:05:00Identifier 84117- 6 Result Time 2019-03-01 01:05:00Unknown Test Item Value Reference Range Comments Unknown (test code = NullTestCode) 500 Unknown Unknown F Ordering Physician UnknownLaboratory Twgrnjr0895-01-38 01:05:00Identifier 20103- 6 Result Time 2019-03-01 01:05:00Unknown Test Item Value Reference Range Comments Unknown (test code = NullTestCode) 15 Unknown Unknown F Ordering Physician UnknownLaboratory Ygeancv7220-29-74 01:05:00Identifier 01353- 6 Result Time 2019-03-01 01:05:00Unknown Test Item Value Reference Range Comments Unknown (test code = NullTestCode) 5 Unknown Unknown F Ordering Physician UnknownLaboratory Ijumccz1329-80-23 20:56:00Identifier 11537- 6 Result Time 2019-02-28 20:56:00Unknown Test Item Value Reference Range Comments Unknown (test code = 3016-3) 1.25 mcIU/mL Unknown 0.34-5.60 F Ordering Physician UnknownLaboratory Kyirrgx5940-55-11 20:56:00Identifier 37792- 6 Result Time 2019-02-28 20:56:00Unknown Test Item Value Reference Range Comments Unknown (test code = 2885-2) 7.0 g/dL Unknown 6.4-8.9 F Ordering Physician UnknownLaboratory Mxymbax0411-15-91 20:56:00Identifier 50137- 6 Result Time 2019-02-28 20:56:00Unknown Test Item Value Reference Range Comments Unknown (test code = 1975-2) 0.50 mg/dL Unknown 0.2-1.0 F Ordering Physician UnknownLaboratory Puyechz9399-68-52 20:56:00Identifier 52707- 6 Result Time 2019-02-28 20:56:00Unknown Test Item Value Reference Range Comments Unknown (test code = NullTestCode) 3.4 g/dL Unknown 2-4 F Ordering Physician UnknownLaboratory Lixglhe1168-18-12 20:56:00Identifier 87959- 6 Result Time 2019-02-28 20:56:00Unknown Test Item Value Reference Range Comments Unknown (test code = 1988-5) 64.61 mg/L Unknown 0-8.00 F Ordering Physician UnknownLaboratory Tmtobom7120-14-67 20:56:00Identifier 68566- 6 Result Time 2019-02-28 20:56:00Unknown Test Item Value Reference Range Comments Unknown (test code = 1920-8) 16 U/L Unknown 13-39 F Ordering Physician UnknownLaboratory Aibgahn3019-93-37 20:56:00Identifier 19421- 6 Result Time 2019-02-28 20:56:00Unknown Test Item Value Reference Range Comments Unknown (test code = 6768-6) 60 U/L Unknown 34-104 F Ordering Physician UnknownLaboratory Nyjlsba3254-14-29 20:56:00Identifier 94274- 6 Result Time 2019-02-28 20:56:00Unknown Test Item Value Reference Range Comments Unknown (test code = 1759-0) 1.1 Unknown 1-3 F Ordering Physician UnknownLaboratory Udglqjm8309-97-27 20:56:00Identifier 32644- 6 Result Time 2019-02-28 20:56:00Unknown Test Item Value Reference Range Comments Unknown (test code = 22381-5) 3.6 g/dL Unknown 3.2-5.2 F Ordering Physician UnknownLaboratory Lasgjkf8176-81-42 20:56:00Identifier 14510- 6 Result Time 2019-02-28 20:56:00Unknown Test Item Value Reference Range Comments Unknown (test code = 1742-6) 11 U/L Unknown 7-52 F Ordering Physician UnknownLaboratory Hofcreq1410-11-00 20:56:00Identifier 50141- 6 Result Time 2019-02-28 20:56:00Unknown Test Item Value Reference Range Comments Unknown (test code = 06678-0) 224 pg/mL Unknown Unknown F Ordering Physician UnknownLaboratory Haceedk5148-38-31 20:56:00Identifier 41229- 6 Result Time 2019-02-28 20:56:00Unknown Test Item Value Reference Range Comments Unknown (test code = 2524-7) 1.4 mmol/L Unknown 0.5-2.0 F Ordering Physician UnknownLaboratory Upquwzm9877-93-88 20:56:00Identifier 16312- 6 Result Time 2019-02-28 20:56:00Unknown Test Item Value Reference Range Comments Unknown (test code = 43126-6) 1.12 Unknown 0.82-1.09 F Ordering Physician UnknownLaboratory Vyryqze8709-31-64 20:56:00Identifier 78592- 6 Result Time 2019-02-28 20:56:00Unknown Test Item Value Reference Range Comments Unknown (test code = 92497-0) 36.2 seconds Unknown 26.0-38.0 F Ordering Physician UnknownLaboratory Cnejnrs6934-79-54 20:49:00Identifier 40548- 6 Result Time 2019-02-28 20:49:00Unknown Test Item Value Reference Range Comments Unknown (test code = NullTestCode) 6.0 Unknown 5-9 F Ordering Physician UnknownLaboratory Mrwcqdb1687-71-82 20:49:00Identifier 48030- 6 Result Time 2019-02-28 20:49:00Unknown Test Item Value Reference Range Comments Unknown (test code = 92619-4) 1.008 Unknown 1.010-1.030 F Ordering Physician UnknownLaboratory Jrduldw5882-03-52 17:41:00Identifier 69394- 6 Result Time 2019-02-28 17:41:00Unknown Test Item Value Reference Range Comments Unknown (test code = 2746-6) 7.38 Unknown 7.32-7.43 F Ordering Physician UnknownLaboratory Suovipj7682-83-49 17:41:00Identifier 15957- 6 Result Time 2019-02-28 17:41:00Unknown Test Item Value Reference Range Comments Unknown (test code = 2705-2) 51.0 mmHg Unknown 35-45 F Ordering Physician UnknownLaboratory Bczzfog1821-60-57 17:41:00Identifier 78494- 6 Result Time 2019-02-28 17:41:00Unknown Test Item Value Reference Range Comments Unknown (test code = 2021-4) 61 mmHg Unknown 41-51 F Ordering Physician UnknownLaboratory Dvlandr7530-82-47 17:41:00Identifier 09801- 6 Result Time 2019-02-28 17:41:00Unknown Test Item Value Reference Range Comments Unknown (test code = 19463-8) 86.2 % Unknown 70-80 F Ordering Physician UnknownLaboratory Ngcrulc0414-69-54 17:41:00Identifier 25072- 6 Result Time 2019-02-28 17:41:00Unknown Test Item Value Reference Range Comments Unknown (test code = NullTestCode) 31.3 mmol/L Unknown 24-28 F Ordering Physician UnknownLaboratory Nukrogf6168-04-48 17:41:00Identifier 77249- 6 Result Time 2019-02-28 17:41:00Unknown Test Item Value Reference Range Comments Unknown (test code = NullTestCode) 8.7 mmol/L Unknown 0.0-4.0 F Ordering Physician UnknownLaboratory Trdkldf4173-60-79 08:40:00Identifier 89672- 6 Result Time 2019-02-10 08:40:00Unknown Test Item Value Reference Range Comments Unknown (test code = 4537-7) 68 mm/Hr Unknown 0-19 F Ordering Physician Unknown
--- OUTSIDE RECORDS SUMMARY | 2019-06-21 08:18 | XMS REPORT ---
:1950 Author Organization [facility] Care Team Providers Name Role Phone Unavailable [...] 81 buffered 81 3-18 mg mg tablet,sarah tablet,sarha yed release yed release mirtazapine mirtazapine No [...] Unknown Unknown Unknown l Hfa l Hfa 8 Inhaler* Inhaler* busPIRone busPIRone No Unknown Unknown [...] Result Comments Laboratory Studies 2019-03-08 12:13:00 Identifier [id number] Result Time Unknown 2019-03-08 12:13:00 Test Item Value Reference Range Comments Unknown (test code = 2339-0) 312 mg/dL Unknown 70-100 F Ordering Physician UnknownLaboratory Raipkzz4389-30-54 06:25:00Identifier 76556- 6 Result Time 2019-03-08 06:25:00Unknown Test Item Value Reference Range Comments Unknown (test code = 2951-2) 136 mmol/L Unknown 135-145 F Ordering Physician UnknownLaboratory Fvttpti7396-31-53 06:25:00Identifier 17970- 6 Result Time 2019-03-08 06:25:00Unknown Test Item Value Reference Range Comments Unknown (test code = 2823-3) 3.7 mmol/L Unknown 3.5-5.0 F Ordering Physician UnknownLaboratory Ebcwjiy8040-80-22 06:25:00Identifier 54890- 6 Result Time 2019-03-08 06:25:00Unknown Test Item Value Reference Range Comments Unknown (test code = 2345-7) 175 mg/dL Unknown 70-100 F Ordering Physician UnknownLaboratory Ketpbjk7904-22-10 06:25:00Identifier 67709- 6 Result Time 2019-03-08 06:25:00Unknown Test Item Value Reference Range Comments Unknown (test code = 99546-3) 49.4 Unknown Unknown F Ordering Physician UnknownLaboratory Uufwvec6530-02-89 06:25:00Identifier 49159- 6 Result Time 2019-03-08 06:25:00Unknown Test Item Value Reference Range Comments Unknown (test code = NullTestCode) 59.8 Unknown Unknown F Ordering Physician UnknownLaboratory Vplnmki3420-22-67 06:25:00Identifier 24968- 6 Result Time 2019-03-08 06:25:00Unknown Test Item Value Reference Range Comments Unknown (test code = 2160-0) 1.42 mg/dL Unknown 0.67-1.17 F Ordering Physician UnknownLaboratory Hsbwuvf0100-42-20 06:25:00Identifier 68097- 6 Result Time 2019-03-08 06:25:00Unknown Test Item Value Reference Range Comments Unknown (test code = 2075-0) 97 mmol/L Unknown 101-111 F Ordering Physician UnknownLaboratory Jnwenvi5773-43-37 06:25:00Identifier 62804- 6 Result Time 2019-03-08 06:25:00Unknown Test Item Value Reference Range Comments Unknown (test code = 2028-9) 33 mmol/L Unknown 22-32 F Ordering Physician UnknownLaboratory Nuhtcuy7415-91-04 06:25:00Identifier 44145- 6 Result Time 2019-03-08 06:25:00Unknown Test Item Value Reference Range Comments Unknown (test code = 21251-6) 9.6 mg/dL Unknown 8.6-10.3 F Ordering Physician UnknownLaboratory Xoubpab2059-19-25 06:25:00Identifier 42642- 6 Result Time 2019-03-08 06:25:00Unknown Test Item Value Reference Range Comments Unknown (test code = 3094-0) 28 mg/dL Unknown 6-24 F Ordering Physician UnknownLaboratory Pyumlzg9957-79-40 06:25:00Identifier 43442- 6 Result Time 2019-03-08 06:25:00Unknown Test Item Value Reference Range Comments Unknown (test code = 3097-3) 19.7 Unknown 8-20 F Ordering Physician UnknownLaboratory Yqllpnz0327-45-43 06:25:00Identifier 67331- 6 Result Time 2019-03-08 06:25:00Unknown Test Item Value Reference Range Comments Unknown (test code = 63801-4) 6 mmol/L Unknown 2-11 F Ordering Physician UnknownLaboratory Ncztbgt4977-68-99 06:25:00Identifier 68048- 6 Result Time 2019-03-08 06:25:00Unknown Test Item Value Reference Range Comments Unknown (test code = 85904-6) 7.7 10^3/uL Unknown 3.5-10.8 F Ordering Physician UnknownLaboratory Ggsaquf7220-79-69 06:25:00Identifier 89455- 6 Result Time 2019-03-08 06:25:00Unknown Test Item Value Reference Range Comments Unknown (test code = 788-0) 15 % Unknown 10-15 F Ordering Physician UnknownLaboratory Rxjvkfz3878-24-99 06:25:00Identifier 81738- 6 Result Time 2019-03-08 06:25:00Unknown Test Item Value Reference Range Comments Unknown (test code = 789-8) 3.94 10^6 /uL Unknown 4.18-5.48 F Ordering Physician UnknownLaboratory Fxpkvjl8183-89-98 06:25:00Identifier 64314- 6 Result Time 2019-03-08 06:25:00Unknown Test Item Value Reference Range Comments Unknown (test code = 777-3) 164 10^3/uL Unknown 150-450 F Ordering Physician UnknownLaboratory Nybyinn6913-16-54 06:25:00Identifier 74850- 6 Result Time 2019-03-08 06:25:00Unknown Test Item Value Reference Range Comments Unknown (test code = 57582-6) 7.8 fL Unknown 7.4-10.4 F Ordering Physician UnknownLaboratory Akuydri6246-90-74 06:25:00Identifier 41836- 6 Result Time 2019-03-08 06:25:00Unknown Test Item Value Reference Range Comments Unknown (test code = 787-2) 81 fL Unknown 80-94 F Ordering Physician UnknownLaboratory Qhodszf6540-43-00 06:25:00Identifier 08121- 6 Result Time 2019-03-08 06:25:00Unknown Test Item Value Reference Range Comments Unknown (test code = 786-4) 34 g/dL Unknown 31-36 F Ordering Physician UnknownLaboratory Tpkpifd1054-74-07 06:25:00Identifier 36288- 6 Result Time 2019-03-08 06:25:00Unknown Test Item Value Reference Range Comments Unknown (test code = 785-6) 27 pg Unknown 27-31 F Ordering Physician UnknownLaboratory Sxdmuru6666-23-09 06:25:00Identifier 19325- 6 Result Time 2019-03-08 06:25:00Unknown Test Item Value Reference Range Comments Unknown (test code = 718-7) 10.8 g/dL Unknown 14.0-18.0 F Ordering Physician UnknownLaboratory Jwbksai9272-37-08 06:25:00Identifier 35385- 6 Result Time 2019-03-08 06:25:00Unknown Test Item Value Reference Range Comments Unknown (test code = 4544-3) 32 % Unknown 42-52 F Ordering Physician UnknownLaboratory Goxhrxq0379-57-71 06:45:00Identifier 21080- 6 Result Time 2019-03-06 06:45:00Unknown Test Item Value Reference Range Comments Unknown (test code = 2777-1) 3.3 mg/dL Unknown 2.5-5.0 F Ordering Physician UnknownLaboratory Iozxhaf6860-62-58 06:45:00Identifier 76760- 6 Result Time 2019-03-06 06:45:00Unknown Test Item Value Reference Range Comments Unknown (test code = 22110-2) 2.1 mg/dL Unknown 1.9-2.7 F Ordering Physician UnknownLaboratory Ztjixms1818-87-63 13:59:00Identifier 62523- 6 Result Time 2019-03-04 13:59:00Unknown Test Item Value Reference Range Comments Unknown (test code = NullTestCode) Unknown Unknown F Ordering Physician UnknownLaboratory Kmzetlz2595-80-97 13:59:00Identifier 69609- 6 Result Time 2019-03-04 13:59:00Unknown Test Item Value Reference Range Comments Unknown (test code = 3034-6) 203 mg/dL Unknown 203-362 F Ordering Physician UnknownLaboratory Ytjyyhj0995-51-77 13:59:00Identifier 19444- 6 Result Time 2019-03-04 13:59:00Unknown Test Item Value Reference Range Comments Unknown (test code = 2500-7) 284 mcg/dL Unknown 250-450 F Ordering Physician UnknownLaboratory Qulpbit8074-59-39 13:59:00Identifier 89989- 6 Result Time 2019-03-04 13:59:00Unknown Test Item Value Reference Range Comments Unknown (test code = NullTestCode) 13 % Unknown 15-55 F Ordering Physician UnknownLaboratory Hcsiash4822-77-42 13:59:00Identifier 04176- 6 Result Time 2019-03-04 13:59:00Unknown Test Item Value Reference Range Comments Unknown (test code = 2498-4) 36 ug/dL Unknown 50-212 F Ordering Physician UnknownLaboratory Uftezcl4305-08-73 17:35:00Identifier 54427- 6 Result Time 2019-03-01 17:35:00Unknown Test Item Value Reference Range Comments Unknown (test code = 2132-9) 866 pg/mL Unknown 180-914 F Ordering Physician UnknownLaboratory Yeatsvi1414-04-72 17:35:00Identifier 80764- 6 Result Time 2019-03-01 17:35:00Unknown Test Item Value Reference Range Comments Unknown (test code = 3053-6) 51 ng/dL Unknown 87-178 F Ordering Physician UnknownLaboratory Ziudjrg7323-30-82 17:35:00Identifier 94317- 6 Result Time 2019-03-01 17:35:00Unknown Test Item Value Reference Range Comments Unknown (test code = 3051-0) 3.10 pg/mL Unknown 2.5-3.9 F Ordering Physician UnknownLaboratory Kslkctp6276-48-24 17:35:00Identifier 72095- 6 Result Time 2019-03-01 17:35:00Unknown Test Item Value Reference Range Comments Unknown (test code = 3024-7) 0.86 ng/dL Unknown 0.61-1.12 F Ordering Physician UnknownLaboratory Sdvevbp9547-92-22 17:35:00Identifier 68869- 6 Result Time 2019-03-01 17:35:00Unknown Test Item Value Reference Range Comments Unknown (test code = 2157-6) 52 U/L Unknown 10-223 F Ordering Physician UnknownLaboratory Zuvbdgg1763-74-78 17:35:00Identifier 46804- 6 Result Time 2019-03-01 17:35:00Unknown Test Item Value Reference Range Comments Unknown (test code = 65471-6) 41 mcmol/L Unknown 16-53 F Ordering Physician UnknownLaboratory Erbahuj8160-82-53 16:21:00Identifier 10990- 6 Result Time 2019-03-01 16:21:00Unknown Test Item Value Reference Range Comments Unknown (test code = 47537-2) 0.10 ng/mL Unknown Unknown F Ordering Physician UnknownLaboratory Ubzgzfv9911-07-71 05:20:00Identifier 63212- 6 Result Time 2019-03-01 05:20:00Unknown Test Item Value Reference Range Comments Unknown (test code = 89368-7) 0.0 Unknown Unknown F Ordering Physician UnknownLaboratory Amwhbko5125-85-94 05:20:00Identifier 32391- 6 Result Time 2019-03-01 05:20:00Unknown Test Item Value Reference Range Comments Unknown (test code = 771-6) 0.0 10^3/ul Unknown Unknown F Ordering Physician UnknownLaboratory Dnivmha1648-54-33 05:20:00Identifier 69796- 6 Result Time 2019-03-01 05:20:00Unknown Test Item Value Reference Range Comments Unknown (test code = 770-8) 92.0 % Unknown Unknown F Ordering Physician UnknownLaboratory Apnupyl6820-94-35 05:20:00Identifier 90332- 6 Result Time 2019-03-01 05:20:00Unknown Test Item Value Reference Range Comments Unknown (test code = 5905-5) 1.8 % Unknown Unknown F Ordering Physician UnknownLaboratory Flgwjff2383-50-60 05:20:00Identifier 78259- 6 Result Time 2019-03-01 05:20:00Unknown Test Item Value Reference Range Comments Unknown (test code = 736-9) 6.0 % Unknown Unknown F Ordering Physician UnknownLaboratory Pqvpchy9902-44-91 05:20:00Identifier 63247- 6 Result Time 2019-03-01 05:20:00Unknown Test Item Value Reference Range Comments Unknown (test code = 713-8) 0.0 % Unknown Unknown F Ordering Physician UnknownLaboratory Zkrcyma2438-03-87 05:20:00Identifier 58175- 6 Result Time 2019-03-01 05:20:00Unknown Test Item Value Reference Range Comments Unknown (test code = 706-2) 0.2 % Unknown Unknown F Ordering Physician UnknownLaboratory Qaqzhbq7701-62-07 05:20:00Identifier 21944- 6 Result Time 2019-03-01 05:20:00Unknown Test Item Value Reference Range Comments Unknown (test code = NSW2683) 7.0 10^3/ul Unknown 1.5-7.7 F Ordering Physician UnknownLaboratory Szlyfdm9401-63-68 05:20:00Identifier 20443- 6 Result Time 2019-03-01 05:20:00Unknown Test Item Value Reference Range Comments Unknown (test code = 742-7) 0.1 10^3/ul Unknown 0-0.8 F Ordering Physician UnknownLaboratory Etnnbyr0609-04-38 05:20:00Identifier 14168- 6 Result Time 2019-03-01 05:20:00Unknown Test Item Value Reference Range Comments Unknown (test code = 731-0) 0.5 10^3/ul Unknown 1.0-4.8 F Ordering Physician UnknownLaboratory Bghbopj3196-87-22 05:20:00Identifier 39778- 6 Result Time 2019-03-01 05:20:00Unknown Test Item Value Reference Range Comments Unknown (test code = 711-2) 0.0 10^3/ul Unknown 0-0.6 F Ordering Physician UnknownLaboratory Bvfxyef9674-32-23 05:20:00Identifier 15483- 6 Result Time 2019-03-01 05:20:00Unknown Test Item Value Reference Range Comments Unknown (test code = 704-7) 0.0 10^3/ul Unknown 0-0.2 F Ordering Physician UnknownLaboratory Tlrvexo4385-53-77 01:05:00Identifier 34498- 6 Result Time 2019-03-01 01:05:00Unknown Test Item Value Reference Range Comments Unknown (test code = 2744-1) 7.37 Unknown 7.35-7.45 F Ordering Physician UnknownLaboratory Nmezmkq4677-17-52 01:05:00Identifier 40982- 6 Result Time 2019-03-01 01:05:00Unknown Test Item Value Reference Range Comments Unknown (test code = 80406-7) 211 mmHg Unknown 80-100 F Ordering Physician UnknownLaboratory Gxjsnrq7848-48-60 01:05:00Identifier 43139- 6 Result Time 2019-03-01 01:05:00Unknown Test Item Value Reference Range Comments Unknown (test code = NullTestCode) 51 mmHg Unknown 35-45 F Ordering Physician UnknownLaboratory Xvjpjnj3124-77-36 01:05:00Identifier 40712- 6 Result Time 2019-03-01 01:05:00Unknown Test Item Value Reference Range Comments Unknown (test code = 2708-6) 99.9 % Unknown 94.0-98.0 F Ordering Physician UnknownLaboratory Eqxczpu3722-17-75 01:05:00Identifier 93304- 6 Result Time 2019-03-01 01:05:00Unknown Test Item Value Reference Range Comments Unknown (test code = 1960-4) 27.4 mmol/L Unknown 19-31 F Ordering Physician UnknownLaboratory Rtkspor5827-87-64 01:05:00Identifier 28435- 6 Result Time 2019-03-01 01:05:00Unknown Test Item Value Reference Range Comments Unknown (test code = 1925-7) 3.1 mmol/L Unknown -2.0-2.0 F Ordering Physician UnknownLaboratory Phjhncy7812-03-33 01:05:00Identifier 89422- 6 Result Time 2019-03-01 01:05:00Unknown Test Item Value Reference Range Comments Unknown (test code = NullTestCode) 80 Unknown Unknown F Ordering Physician UnknownLaboratory Knwxnab8234-20-28 01:05:00Identifier 36400- 6 Result Time 2019-03-01 01:05:00Unknown Test Item Value Reference Range Comments Unknown (test code = NullTestCode) 500 Unknown Unknown F Ordering Physician UnknownLaboratory Ofbtwwl7367-61-59 01:05:00Identifier 29165- 6 Result Time 2019-03-01 01:05:00Unknown Test Item Value Reference Range Comments Unknown (test code = NullTestCode) 15 Unknown Unknown F Ordering Physician UnknownLaboratory Rbesyda3816-24-09 01:05:00Identifier 32733- 6 Result Time 2019-03-01 01:05:00Unknown Test Item Value Reference Range Comments Unknown (test code = NullTestCode) 5 Unknown Unknown F Ordering Physician UnknownLaboratory Wppaaly0705-64-72 20:56:00Identifier 48433- 6 Result Time 2019-02-28 20:56:00Unknown Test Item Value Reference Range Comments Unknown (test code = 3016-3) 1.25 mcIU/mL Unknown 0.34-5.60 F Ordering Physician UnknownLaboratory Kgroijt9147-47-97 20:56:00Identifier 25337- 6 Result Time 2019-02-28 20:56:00Unknown Test Item Value Reference Range Comments Unknown (test code = 2885-2) 7.0 g/dL Unknown 6.4-8.9 F Ordering Physician UnknownLaboratory Egayrja4328-65-91 20:56:00Identifier 30048- 6 Result Time 2019-02-28 20:56:00Unknown Test Item Value Reference Range Comments Unknown (test code = 1975-2) 0.50 mg/dL Unknown 0.2-1.0 F Ordering Physician UnknownLaboratory Lvrxzlt0233-27-19 20:56:00Identifier 20983- 6 Result Time 2019-02-28 20:56:00Unknown Test Item Value Reference Range Comments Unknown (test code = NullTestCode) 3.4 g/dL Unknown 2-4 F Ordering Physician UnknownLaboratory Llrgwet9298-63-20 20:56:00Identifier 95040- 6 Result Time 2019-02-28 20:56:00Unknown Test Item Value Reference Range Comments Unknown (test code = 1988-5) 64.61 mg/L Unknown 0-8.00 F Ordering Physician UnknownLaboratory Qlzubiv9122-32-01 20:56:00Identifier 13241- 6 Result Time 2019-02-28 20:56:00Unknown Test Item Value Reference Range Comments Unknown (test code = 1920-8) 16 U/L Unknown 13-39 F Ordering Physician UnknownLaboratory Duryzeg3116-88-77 20:56:00Identifier 26818- 6 Result Time 2019-02-28 20:56:00Unknown Test Item Value Reference Range Comments Unknown (test code = 6768-6) 60 U/L Unknown 34-104 F Ordering Physician UnknownLaboratory Ovfsksp9104-60-03 20:56:00Identifier 70025- 6 Result Time 2019-02-28 20:56:00Unknown Test Item Value Reference Range Comments Unknown (test code = 1759-0) 1.1 Unknown 1-3 F Ordering Physician UnknownLaboratory Sykydju8347-37-47 20:56:00Identifier 43372- 6 Result Time 2019-02-28 20:56:00Unknown Test Item Value Reference Range Comments Unknown (test code = 82900-7) 3.6 g/dL Unknown 3.2-5.2 F Ordering Physician UnknownLaboratory Ibgfyob9723-97-54 20:56:00Identifier 22777- 6 Result Time 2019-02-28 20:56:00Unknown Test Item Value Reference Range Comments Unknown (test code = 1742-6) 11 U/L Unknown 7-52 F Ordering Physician UnknownLaboratory Mzbtvcl3453-85-34 20:56:00Identifier 72304- 6 Result Time 2019-02-28 20:56:00Unknown Test Item Value Reference Range Comments Unknown (test code = 79701-4) 224 pg/mL Unknown Unknown F Ordering Physician UnknownLaboratory Psfgwky8210-62-45 20:56:00Identifier 26119- 6 Result Time 2019-02-28 20:56:00Unknown Test Item Value Reference Range Comments Unknown (test code = 2524-7) 1.4 mmol/L Unknown 0.5-2.0 F Ordering Physician UnknownLaboratory Omxbgui8438-40-65 20:56:00Identifier 25483- 6 Result Time 2019-02-28 20:56:00Unknown Test Item Value Reference Range Comments Unknown (test code = 55136-5) 1.12 Unknown 0.82-1.09 F Ordering Physician UnknownLaboratory Eikeijb3269-67-22 20:56:00Identifier 22039- 6 Result Time 2019-02-28 20:56:00Unknown Test Item Value Reference Range Comments Unknown (test code = 38539-5) 36.2 seconds Unknown 26.0-38.0 F Ordering Physician UnknownLaboratory Rxglgop6821-81-33 20:49:00Identifier 97268- 6 Result Time 2019-02-28 20:49:00Unknown Test Item Value Reference Range Comments Unknown (test code = NullTestCode) 6.0 Unknown 5-9 F Ordering Physician UnknownLaboratory Fgttgys8534-50-76 20:49:00Identifier 42895- 6 Result Time 2019-02-28 20:49:00Unknown Test Item Value Reference Range Comments Unknown (test code = 08168-8) 1.008 Unknown 1.010-1.030 F Ordering Physician UnknownLaboratory Vnslnyc5111-56-11 17:41:00Identifier 26730- 6 Result Time 2019-02-28 17:41:00Unknown Test Item Value Reference Range Comments Unknown (test code = 2746-6) 7.38 Unknown 7.32-7.43 F Ordering Physician UnknownLaboratory Jsllfvw2207-00-63 17:41:00Identifier 56733- 6 Result Time 2019-02-28 17:41:00Unknown Test Item Value Reference Range Comments Unknown (test code = 2705-2) 51.0 mmHg Unknown 35-45 F Ordering Physician UnknownLaboratory Ioxewzs7398-92-91 17:41:00Identifier 18417- 6 Result Time 2019-02-28 17:41:00Unknown Test Item Value Reference Range Comments Unknown (test code = 2021-4) 61 mmHg Unknown 41-51 F Ordering Physician UnknownLaboratory Anyteio0648-74-19 17:41:00Identifier 18787- 6 Result Time 2019-02-28 17:41:00Unknown Test Item Value Reference Range Comments Unknown (test code = 67583-3) 86.2 % Unknown 70-80 F Ordering Physician UnknownLaboratory Sqfjblm5114-97-73 17:41:00Identifier 66745- 6 Result Time 2019-02-28 17:41:00Unknown Test Item Value Reference Range Comments Unknown (test code = NullTestCode) 31.3 mmol/L Unknown 24-28 F Ordering Physician UnknownLaboratory Ybtcqao9374-67-66 17:41:00Identifier 11383- 6 Result Time 2019-02-28 17:41:00Unknown Test Item Value Reference Range Comments Unknown (test code = NullTestCode) 8.7 mmol/L Unknown 0.0-4.0 F Ordering Physician UnknownLaboratory Eipkrff9724-96-36 08:40:00Identifier 14714- 6 Result Time 2019-02-10 08:40:00Unknown Test Item Value Reference Range Comments Unknown (test code = 4537-7) 68 mm/Hr Unknown 0-19 F Ordering Physician Unknown
--- OUTSIDE RECORDS SUMMARY | 2019-06-21 08:18 | XMS REPORT ---
:1950 Author Organization [facility] Providers Name Role Phone Unavailable [...] Result Comments Laboratory Studies 2019-03-08 12:13:00 Identifier [id number] Result Time Unknown 2019-03-08 12:13:00 Test Item Value Reference Range Comments Unknown (test code = 2339-0) 312 mg/dL Unknown 70-100 F Ordering Physician UnknownLaboratory Zfjjpoh6845-76-36 06:25:00Identifier 79808- 6 Result Time 2019-03-08 06:25:00Unknown Test Item Value Reference Range Comments Unknown (test code = 2951-2) 136 mmol/L Unknown 135-145 F Ordering Physician UnknownLaboratory Wjfrjkl4135-62-89 06:25:00Identifier 62098- 6 Result Time 2019-03-08 06:25:00Unknown Test Item Value Reference Range Comments Unknown (test code = 2823-3) 3.7 mmol/L Unknown 3.5-5.0 F Ordering Physician UnknownLaboratory Nqyvnam6154-28-74 06:25:00Identifier 03662- 6 Result Time 2019-03-08 06:25:00Unknown Test Item Value Reference Range Comments Unknown (test code = 2345-7) 175 mg/dL Unknown 70-100 F Ordering Physician UnknownLaboratory Pcrgsxn6337-91-55 06:25:00Identifier 16359- 6 Result Time 2019-03-08 06:25:00Unknown Test Item Value Reference Range Comments Unknown (test code = 97888-8) 49.4 Unknown Unknown F Ordering Physician UnknownLaboratory Ymxdolq0388-94-96 06:25:00Identifier 28137- 6 Result Time 2019-03-08 06:25:00Unknown Test Item Value Reference Range Comments Unknown (test code = NullTestCode) 59.8 Unknown Unknown F Ordering Physician UnknownLaboratory Fnpelzo6015-00-02 06:25:00Identifier 61886- 6 Result Time 2019-03-08 06:25:00Unknown Test Item Value Reference Range Comments Unknown (test code = 2160-0) 1.42 mg/dL Unknown 0.67-1.17 F Ordering Physician UnknownLaboratory Orqajxd0395-64-46 06:25:00Identifier 76576- 6 Result Time 2019-03-08 06:25:00Unknown Test Item Value Reference Range Comments Unknown (test code = 2075-0) 97 mmol/L Unknown 101-111 F Ordering Physician UnknownLaboratory Oonysfq8000-93-36 06:25:00Identifier 40253- 6 Result Time 2019-03-08 06:25:00Unknown Test Item Value Reference Range Comments Unknown (test code = 2028-9) 33 mmol/L Unknown 22-32 F Ordering Physician UnknownLaboratory Hlhvdra1368-95-01 06:25:00Identifier 29844- 6 Result Time 2019-03-08 06:25:00Unknown Test Item Value Reference Range Comments Unknown (test code = 28245-0) 9.6 mg/dL Unknown 8.6-10.3 F Ordering Physician UnknownLaboratory Fsfdxiu6435-84-81 06:25:00Identifier 37721- 6 Result Time 2019-03-08 06:25:00Unknown Test Item Value Reference Range Comments Unknown (test code = 3094-0) 28 mg/dL Unknown 6-24 F Ordering Physician UnknownLaboratory Dkgcqdy4930-61-35 06:25:00Identifier 25754- 6 Result Time 2019-03-08 06:25:00Unknown Test Item Value Reference Range Comments Unknown (test code = 3097-3) 19.7 Unknown 8-20 F Ordering Physician UnknownLaboratory Ppfecvw1151-66-16 06:25:00Identifier 99296- 6 Result Time 2019-03-08 06:25:00Unknown Test Item Value Reference Range Comments Unknown (test code = 72156-8) 6 mmol/L Unknown 2-11 F Ordering Physician UnknownLaboratory Yhpolqc5806-63-05 06:25:00Identifier 50392- 6 Result Time 2019-03-08 06:25:00Unknown Test Item Value Reference Range Comments Unknown (test code = 82796-5) 7.7 10^3/uL Unknown 3.5-10.8 F Ordering Physician UnknownLaboratory Zydbvab9997-31-04 06:25:00Identifier 29842- 6 Result Time 2019-03-08 06:25:00Unknown Test Item Value Reference Range Comments Unknown (test code = 788-0) 15 % Unknown 10-15 F Ordering Physician UnknownLaboratory Fqgrkvi6771-38-63 06:25:00Identifier 37620- 6 Result Time 2019-03-08 06:25:00Unknown Test Item Value Reference Range Comments Unknown (test code = 789-8) 3.94 10^6 /uL Unknown 4.18-5.48 F Ordering Physician UnknownLaboratory Pktyuoe3783-89-80 06:25:00Identifier 53342- 6 Result Time 2019-03-08 06:25:00Unknown Test Item Value Reference Range Comments Unknown (test code = 777-3) 164 10^3/uL Unknown 150-450 F Ordering Physician UnknownLaboratory Wogujqe6998-63-15 06:25:00Identifier 76512- 6 Result Time 2019-03-08 06:25:00Unknown Test Item Value Reference Range Comments Unknown (test code = 56001-7) 7.8 fL Unknown 7.4-10.4 F Ordering Physician UnknownLaboratory Xtofoxh2365-50-64 06:25:00Identifier 04039- 6 Result Time 2019-03-08 06:25:00Unknown Test Item Value Reference Range Comments Unknown (test code = 787-2) 81 fL Unknown 80-94 F Ordering Physician UnknownLaboratory Qxbjuyy3825-72-50 06:25:00Identifier 48323- 6 Result Time 2019-03-08 06:25:00Unknown Test Item Value Reference Range Comments Unknown (test code = 786-4) 34 g/dL Unknown 31-36 F Ordering Physician UnknownLaboratory Ruqvzui2618-21-91 06:25:00Identifier 59947- 6 Result Time 2019-03-08 06:25:00Unknown Test Item Value Reference Range Comments Unknown (test code = 785-6) 27 pg Unknown 27-31 F Ordering Physician UnknownLaboratory Vfgngsy1994-53-48 06:25:00Identifier 53162- 6 Result Time 2019-03-08 06:25:00Unknown Test Item Value Reference Range Comments Unknown (test code = 718-7) 10.8 g/dL Unknown 14.0-18.0 F Ordering Physician UnknownLaboratory Lxlpvtk1108-37-49 06:25:00Identifier 66045- 6 Result Time 2019-03-08 06:25:00Unknown Test Item Value Reference Range Comments Unknown (test code = 4544-3) 32 % Unknown 42-52 F Ordering Physician UnknownLaboratory Kliotpf3400-92-35 06:45:00Identifier 28831- 6 Result Time 2019-03-06 06:45:00Unknown Test Item Value Reference Range Comments Unknown (test code = 2777-1) 3.3 mg/dL Unknown 2.5-5.0 F Ordering Physician UnknownLaboratory Axwatdd3403-75-35 06:45:00Identifier 11493- 6 Result Time 2019-03-06 06:45:00Unknown Test Item Value Reference Range Comments Unknown (test code = 71555-9) 2.1 mg/dL Unknown 1.9-2.7 F Ordering Physician UnknownLaboratory Prmugcf7331-46-50 13:59:00Identifier 04563- 6 Result Time 2019-03-04 13:59:00Unknown Test Item Value Reference Range Comments Unknown (test code = NullTestCode) Unknown Unknown F Ordering Physician UnknownLaboratory Mysonjx5508-06-67 13:59:00Identifier 92402- 6 Result Time 2019-03-04 13:59:00Unknown Test Item Value Reference Range Comments Unknown (test code = 3034-6) 203 mg/dL Unknown 203-362 F Ordering Physician UnknownLaboratory Eumfdqe1264-85-64 13:59:00Identifier 50777- 6 Result Time 2019-03-04 13:59:00Unknown Test Item Value Reference Range Comments Unknown (test code = 2500-7) 284 mcg/dL Unknown 250-450 F Ordering Physician UnknownLaboratory Jspgayr2325-80-70 13:59:00Identifier 81161- 6 Result Time 2019-03-04 13:59:00Unknown Test Item Value Reference Range Comments Unknown (test code = NullTestCode) 13 % Unknown 15-55 F Ordering Physician UnknownLaboratory Kkubxsy0096-67-38 13:59:00Identifier 34587- 6 Result Time 2019-03-04 13:59:00Unknown Test Item Value Reference Range Comments Unknown (test code = 2498-4) 36 ug/dL Unknown 50-212 F Ordering Physician UnknownLaboratory Lgyhvrx1786-97-40 17:35:00Identifier 17456- 6 Result Time 2019-03-01 17:35:00Unknown Test Item Value Reference Range Comments Unknown (test code = 2132-9) 866 pg/mL Unknown 180-914 F Ordering Physician UnknownLaboratory Ofizeok5117-70-19 17:35:00Identifier 23683- 6 Result Time 2019-03-01 17:35:00Unknown Test Item Value Reference Range Comments Unknown (test code = 3053-6) 51 ng/dL Unknown 87-178 F Ordering Physician UnknownLaboratory Mztrvcv5558-64-66 17:35:00Identifier 15294- 6 Result Time 2019-03-01 17:35:00Unknown Test Item Value Reference Range Comments Unknown (test code = 3051-0) 3.10 pg/mL Unknown 2.5-3.9 F Ordering Physician UnknownLaboratory Ltvryac6385-63-06 17:35:00Identifier 71796- 6 Result Time 2019-03-01 17:35:00Unknown Test Item Value Reference Range Comments Unknown (test code = 3024-7) 0.86 ng/dL Unknown 0.61-1.12 F Ordering Physician UnknownLaboratory Gipnvxs8127-56-23 17:35:00Identifier 18462- 6 Result Time 2019-03-01 17:35:00Unknown Test Item Value Reference Range Comments Unknown (test code = 2157-6) 52 U/L Unknown 10-223 F Ordering Physician UnknownLaboratory Oojumfx1988-43-68 17:35:00Identifier 17328- 6 Result Time 2019-03-01 17:35:00Unknown Test Item Value Reference Range Comments Unknown (test code = 75659-7) 41 mcmol/L Unknown 16-53 F Ordering Physician UnknownLaboratory Xoomdhd5119-38-82 16:21:00Identifier 80730- 6 Result Time 2019-03-01 16:21:00Unknown Test Item Value Reference Range Comments Unknown (test code = 56520-9) 0.10 ng/mL Unknown Unknown F Ordering Physician UnknownLaboratory Kzpzzrd8018-39-22 05:20:00Identifier 50736- 6 Result Time 2019-03-01 05:20:00Unknown Test Item Value Reference Range Comments Unknown (test code = 79343-8) 0.0 Unknown Unknown F Ordering Physician UnknownLaboratory Pfenela8141-76-38 05:20:00Identifier 64142- 6 Result Time 2019-03-01 05:20:00Unknown Test Item Value Reference Range Comments Unknown (test code = 771-6) 0.0 10^3/ul Unknown Unknown F Ordering Physician UnknownLaboratory Ecqizko9134-38-48 05:20:00Identifier 88699- 6 Result Time 2019-03-01 05:20:00Unknown Test Item Value Reference Range Comments Unknown (test code = 770-8) 92.0 % Unknown Unknown F Ordering Physician UnknownLaboratory Pfycsrg4423-89-89 05:20:00Identifier 52127- 6 Result Time 2019-03-01 05:20:00Unknown Test Item Value Reference Range Comments Unknown (test code = 5905-5) 1.8 % Unknown Unknown F Ordering Physician UnknownLaboratory Ckzfptp8857-68-24 05:20:00Identifier 16803- 6 Result Time 2019-03-01 05:20:00Unknown Test Item Value Reference Range Comments Unknown (test code = 736-9) 6.0 % Unknown Unknown F Ordering Physician UnknownLaboratory Svzcspo4190-36-50 05:20:00Identifier 44962- 6 Result Time 2019-03-01 05:20:00Unknown Test Item Value Reference Range Comments Unknown (test code = 713-8) 0.0 % Unknown Unknown F Ordering Physician UnknownLaboratory Lricnmw7849-57-77 05:20:00Identifier 25223- 6 Result Time 2019-03-01 05:20:00Unknown Test Item Value Reference Range Comments Unknown (test code = 706-2) 0.2 % Unknown Unknown F Ordering Physician UnknownLaboratory Dlqcffm3446-96-63 05:20:00Identifier 66250- 6 Result Time 2019-03-01 05:20:00Unknown Test Item Value Reference Range Comments Unknown (test code = HCB4912) 7.0 10^3/ul Unknown 1.5-7.7 F Ordering Physician UnknownLaboratory Uqbogtm3204-45-68 05:20:00Identifier 52300- 6 Result Time 2019-03-01 05:20:00Unknown Test Item Value Reference Range Comments Unknown (test code = 742-7) 0.1 10^3/ul Unknown 0-0.8 F Ordering Physician UnknownLaboratory Keivchp5789-83-69 05:20:00Identifier 61991- 6 Result Time 2019-03-01 05:20:00Unknown Test Item Value Reference Range Comments Unknown (test code = 731-0) 0.5 10^3/ul Unknown 1.0-4.8 F Ordering Physician UnknownLaboratory Kslljpq9070-08-98 05:20:00Identifier 08953- 6 Result Time 2019-03-01 05:20:00Unknown Test Item Value Reference Range Comments Unknown (test code = 711-2) 0.0 10^3/ul Unknown 0-0.6 F Ordering Physician UnknownLaboratory Innzwcq7499-17-95 05:20:00Identifier 39502- 6 Result Time 2019-03-01 05:20:00Unknown Test Item Value Reference Range Comments Unknown (test code = 704-7) 0.0 10^3/ul Unknown 0-0.2 F Ordering Physician UnknownLaboratory Zojffyr1601-07-36 01:05:00Identifier 84233- 6 Result Time 2019-03-01 01:05:00Unknown Test Item Value Reference Range Comments Unknown (test code = 2744-1) 7.37 Unknown 7.35-7.45 F Ordering Physician UnknownLaboratory Vgvsmnr7035-66-11 01:05:00Identifier 95016- 6 Result Time 2019-03-01 01:05:00Unknown Test Item Value Reference Range Comments Unknown (test code = 09209-6) 211 mmHg Unknown 80-100 F Ordering Physician UnknownLaboratory Zrbkjyw4018-39-82 01:05:00Identifier 28640- 6 Result Time 2019-03-01 01:05:00Unknown Test Item Value Reference Range Comments Unknown (test code = NullTestCode) 51 mmHg Unknown 35-45 F Ordering Physician UnknownLaboratory Vtvqhyg2028-66-94 01:05:00Identifier 80046- 6 Result Time 2019-03-01 01:05:00Unknown Test Item Value Reference Range Comments Unknown (test code = 2708-6) 99.9 % Unknown 94.0-98.0 F Ordering Physician UnknownLaboratory Tqlebnn1372-00-77 01:05:00Identifier 00466- 6 Result Time 2019-03-01 01:05:00Unknown Test Item Value Reference Range Comments Unknown (test code = 1960-4) 27.4 mmol/L Unknown 19-31 F Ordering Physician UnknownLaboratory Jphzyvh9337-58-41 01:05:00Identifier 81659- 6 Result Time 2019-03-01 01:05:00Unknown Test Item Value Reference Range Comments Unknown (test code = 1925-7) 3.1 mmol/L Unknown -2.0-2.0 F Ordering Physician UnknownLaboratory Inlnsom7133-53-57 01:05:00Identifier 21785- 6 Result Time 2019-03-01 01:05:00Unknown Test Item Value Reference Range Comments Unknown (test code = NullTestCode) 80 Unknown Unknown F Ordering Physician UnknownLaboratory Mlvzimw3810-00-60 01:05:00Identifier 14678- 6 Result Time 2019-03-01 01:05:00Unknown Test Item Value Reference Range Comments Unknown (test code = NullTestCode) 500 Unknown Unknown F Ordering Physician UnknownLaboratory Bxkkkdq9349-28-65 01:05:00Identifier 24244- 6 Result Time 2019-03-01 01:05:00Unknown Test Item Value Reference Range Comments Unknown (test code = NullTestCode) 15 Unknown Unknown F Ordering Physician UnknownLaboratory Jenjdol2302-09-74 01:05:00Identifier 54914- 6 Result Time 2019-03-01 01:05:00Unknown Test Item Value Reference Range Comments Unknown (test code = NullTestCode) 5 Unknown Unknown F Ordering Physician UnknownLaboratory Sfgeimg9674-29-06 20:56:00Identifier 40663- 6 Result Time 2019-02-28 20:56:00Unknown Test Item Value Reference Range Comments Unknown (test code = 3016-3) 1.25 mcIU/mL Unknown 0.34-5.60 F Ordering Physician UnknownLaboratory Gomwvrw5440-74-77 20:56:00Identifier 21188- 6 Result Time 2019-02-28 20:56:00Unknown Test Item Value Reference Range Comments Unknown (test code = 2885-2) 7.0 g/dL Unknown 6.4-8.9 F Ordering Physician UnknownLaboratory Juozuer8792-26-54 20:56:00Identifier 38843- 6 Result Time 2019-02-28 20:56:00Unknown Test Item Value Reference Range Comments Unknown (test code = 1975-2) 0.50 mg/dL Unknown 0.2-1.0 F Ordering Physician UnknownLaboratory Kfpntws1664-21-75 20:56:00Identifier 72717- 6 Result Time 2019-02-28 20:56:00Unknown Test Item Value Reference Range Comments Unknown (test code = NullTestCode) 3.4 g/dL Unknown 2-4 F Ordering Physician UnknownLaboratory Cgvrmds3016-38-27 20:56:00Identifier 31588- 6 Result Time 2019-02-28 20:56:00Unknown Test Item Value Reference Range Comments Unknown (test code = 1988-5) 64.61 mg/L Unknown 0-8.00 F Ordering Physician UnknownLaboratory Gkdjvdg9940-33-62 20:56:00Identifier 21573- 6 Result Time 2019-02-28 20:56:00Unknown Test Item Value Reference Range Comments Unknown (test code = 1920-8) 16 U/L Unknown 13-39 F Ordering Physician UnknownLaboratory Otxapbr2480-54-99 20:56:00Identifier 31426- 6 Result Time 2019-02-28 20:56:00Unknown Test Item Value Reference Range Comments Unknown (test code = 6768-6) 60 U/L Unknown 34-104 F Ordering Physician UnknownLaboratory Uormvox9024-10-10 20:56:00Identifier 20088- 6 Result Time 2019-02-28 20:56:00Unknown Test Item Value Reference Range Comments Unknown (test code = 1759-0) 1.1 Unknown 1-3 F Ordering Physician UnknownLaboratory Llrxjnc7947-98-90 20:56:00Identifier 77914- 6 Result Time 2019-02-28 20:56:00Unknown Test Item Value Reference Range Comments Unknown (test code = 09474-6) 3.6 g/dL Unknown 3.2-5.2 F Ordering Physician UnknownLaboratory Yppvdlx8042-67-08 20:56:00Identifier 04823- 6 Result Time 2019-02-28 20:56:00Unknown Test Item Value Reference Range Comments Unknown (test code = 1742-6) 11 U/L Unknown 7-52 F Ordering Physician UnknownLaboratory Ucxodsn8199-74-95 20:56:00Identifier 49931- 6 Result Time 2019-02-28 20:56:00Unknown Test Item Value Reference Range Comments Unknown (test code = 46088-7) 224 pg/mL Unknown Unknown F Ordering Physician UnknownLaboratory Rxkxqoh8888-67-82 20:56:00Identifier 66454- 6 Result Time 2019-02-28 20:56:00Unknown Test Item Value Reference Range Comments Unknown (test code = 2524-7) 1.4 mmol/L Unknown 0.5-2.0 F Ordering Physician UnknownLaboratory Liwjqgd6022-78-15 20:56:00Identifier 54677- 6 Result Time 2019-02-28 20:56:00Unknown Test Item Value Reference Range Comments Unknown (test code = 18474-1) 1.12 Unknown 0.82-1.09 F Ordering Physician UnknownLaboratory Lrhqmrw3702-55-11 20:56:00Identifier 93316- 6 Result Time 2019-02-28 20:56:00Unknown Test Item Value Reference Range Comments Unknown (test code = 80580-9) 36.2 seconds Unknown 26.0-38.0 F Ordering Physician UnknownLaboratory Kdaaerk9265-02-97 20:49:00Identifier 94564- 6 Result Time 2019-02-28 20:49:00Unknown Test Item Value Reference Range Comments Unknown (test code = NullTestCode) 6.0 Unknown 5-9 F Ordering Physician UnknownLaboratory Eoqroro9043-35-75 20:49:00Identifier 57433- 6 Result Time 2019-02-28 20:49:00Unknown Test Item Value Reference Range Comments Unknown (test code = 52917-8) 1.008 Unknown 1.010-1.030 F Ordering Physician UnknownLaboratory Dlokrsn7570-96-92 17:41:00Identifier 05412- 6 Result Time 2019-02-28 17:41:00Unknown Test Item Value Reference Range Comments Unknown (test code = 2746-6) 7.38 Unknown 7.32-7.43 F Ordering Physician UnknownLaboratory Pnfxeqw3792-50-93 17:41:00Identifier 79980- 6 Result Time 2019-02-28 17:41:00Unknown Test Item Value Reference Range Comments Unknown (test code = 2705-2) 51.0 mmHg Unknown 35-45 F Ordering Physician UnknownLaboratory Wdrvtof3310-22-86 17:41:00Identifier 50488- 6 Result Time 2019-02-28 17:41:00Unknown Test Item Value Reference Range Comments Unknown (test code = 2021-4) 61 mmHg Unknown 41-51 F Ordering Physician UnknownLaboratory Xilkzeg2890-35-40 17:41:00Identifier 87105- 6 Result Time 2019-02-28 17:41:00Unknown Test Item Value Reference Range Comments Unknown (test code = 92592-2) 86.2 % Unknown 70-80 F Ordering Physician UnknownLaboratory Zibddmb5196-82-97 17:41:00Identifier 21956- 6 Result Time 2019-02-28 17:41:00Unknown Test Item Value Reference Range Comments Unknown (test code = NullTestCode) 31.3 mmol/L Unknown 24-28 F Ordering Physician UnknownLaboratory Redlvdc3054-36-21 17:41:00Identifier 38138- 6 Result Time 2019-02-28 17:41:00Unknown Test Item Value Reference Range Comments Unknown (test code = NullTestCode) 8.7 mmol/L Unknown 0.0-4.0 F Ordering Physician UnknownLaboratory Ehvyxos7105-49-20 08:40:00Identifier 17853- 6 Result Time 2019-02-10 08:40:00Unknown Test Item Value Reference Range Comments Unknown (test code = 4537-7) 68 mm/Hr Unknown 0-19 F Ordering Physician Unknown
--- OUTSIDE RECORDS SUMMARY | 2019-06-21 08:18 | XMS REPORT ---
:1950 Author Organization [facility] Team Providers Name Role Phone [...] Result Comments Laboratory Studies 2019-03-08 12:13:00 Identifier [id number] Result Time Unknown 2019-03-08 12:13:00 Test Item Value Reference Range Comments Unknown (test code = 2339-0) 312 mg/dL Unknown 70-100 F Ordering Physician UnknownLaboratory Hrxvhjo4534-52-55 06:25:00Identifier 28558- 6 Result Time 2019-03-08 06:25:00Unknown Test Item Value Reference Range Comments Unknown (test code = 2951-2) 136 mmol/L Unknown 135-145 F Ordering Physician UnknownLaboratory Irndcen1488-78-87 06:25:00Identifier 46790- 6 Result Time 2019-03-08 06:25:00Unknown Test Item Value Reference Range Comments Unknown (test code = 2823-3) 3.7 mmol/L Unknown 3.5-5.0 F Ordering Physician UnknownLaboratory Boybixo9721-09-59 06:25:00Identifier 13262- 6 Result Time 2019-03-08 06:25:00Unknown Test Item Value Reference Range Comments Unknown (test code = 2345-7) 175 mg/dL Unknown 70-100 F Ordering Physician UnknownLaboratory Xbomaek1188-70-91 06:25:00Identifier 33233- 6 Result Time 2019-03-08 06:25:00Unknown Test Item Value Reference Range Comments Unknown (test code = 45090-2) 49.4 Unknown Unknown F Ordering Physician UnknownLaboratory Vpkeeym3408-16-16 06:25:00Identifier 24687- 6 Result Time 2019-03-08 06:25:00Unknown Test Item Value Reference Range Comments Unknown (test code = NullTestCode) 59.8 Unknown Unknown F Ordering Physician UnknownLaboratory Oncgteb4974-90-79 06:25:00Identifier 49170- 6 Result Time 2019-03-08 06:25:00Unknown Test Item Value Reference Range Comments Unknown (test code = 2160-0) 1.42 mg/dL Unknown 0.67-1.17 F Ordering Physician UnknownLaboratory Xgoohsa8380-05-92 06:25:00Identifier 21697- 6 Result Time 2019-03-08 06:25:00Unknown Test Item Value Reference Range Comments Unknown (test code = 2075-0) 97 mmol/L Unknown 101-111 F Ordering Physician UnknownLaboratory Ovaoaix7287-33-43 06:25:00Identifier 98748- 6 Result Time 2019-03-08 06:25:00Unknown Test Item Value Reference Range Comments Unknown (test code = 2028-9) 33 mmol/L Unknown 22-32 F Ordering Physician UnknownLaboratory Gyedgnn0950-01-62 06:25:00Identifier 23431- 6 Result Time 2019-03-08 06:25:00Unknown Test Item Value Reference Range Comments Unknown (test code = 75711-3) 9.6 mg/dL Unknown 8.6-10.3 F Ordering Physician UnknownLaboratory Bipvkro5242-67-69 06:25:00Identifier 31121- 6 Result Time 2019-03-08 06:25:00Unknown Test Item Value Reference Range Comments Unknown (test code = 3094-0) 28 mg/dL Unknown 6-24 F Ordering Physician UnknownLaboratory Yoanftm1790-18-36 06:25:00Identifier 60751- 6 Result Time 2019-03-08 06:25:00Unknown Test Item Value Reference Range Comments Unknown (test code = 3097-3) 19.7 Unknown 8-20 F Ordering Physician UnknownLaboratory Vfedyhw7203-64-48 06:25:00Identifier 61513- 6 Result Time 2019-03-08 06:25:00Unknown Test Item Value Reference Range Comments Unknown (test code = 24952-0) 6 mmol/L Unknown 2-11 F Ordering Physician UnknownLaboratory Srybsxh3231-72-47 06:25:00Identifier 69624- 6 Result Time 2019-03-08 06:25:00Unknown Test Item Value Reference Range Comments Unknown (test code = 48157-1) 7.7 10^3/uL Unknown 3.5-10.8 F Ordering Physician UnknownLaboratory Ctlqans6987-82-71 06:25:00Identifier 40613- 6 Result Time 2019-03-08 06:25:00Unknown Test Item Value Reference Range Comments Unknown (test code = 788-0) 15 % Unknown 10-15 F Ordering Physician UnknownLaboratory Aaxsynv9181-88-33 06:25:00Identifier 14028- 6 Result Time 2019-03-08 06:25:00Unknown Test Item Value Reference Range Comments Unknown (test code = 789-8) 3.94 10^6 /uL Unknown 4.18-5.48 F Ordering Physician UnknownLaboratory Famnrqk1349-80-91 06:25:00Identifier 55588- 6 Result Time 2019-03-08 06:25:00Unknown Test Item Value Reference Range Comments Unknown (test code = 777-3) 164 10^3/uL Unknown 150-450 F Ordering Physician UnknownLaboratory Ktmxvfh3619-99-20 06:25:00Identifier 22987- 6 Result Time 2019-03-08 06:25:00Unknown Test Item Value Reference Range Comments Unknown (test code = 92774-2) 7.8 fL Unknown 7.4-10.4 F Ordering Physician UnknownLaboratory Oozuuvl6763-32-58 06:25:00Identifier 41457- 6 Result Time 2019-03-08 06:25:00Unknown Test Item Value Reference Range Comments Unknown (test code = 787-2) 81 fL Unknown 80-94 F Ordering Physician UnknownLaboratory Ndsuykb3808-33-31 06:25:00Identifier 73386- 6 Result Time 2019-03-08 06:25:00Unknown Test Item Value Reference Range Comments Unknown (test code = 786-4) 34 g/dL Unknown 31-36 F Ordering Physician UnknownLaboratory Ofodeza6647-48-74 06:25:00Identifier 56732- 6 Result Time 2019-03-08 06:25:00Unknown Test Item Value Reference Range Comments Unknown (test code = 785-6) 27 pg Unknown 27-31 F Ordering Physician UnknownLaboratory Hdeqhrd9134-67-31 06:25:00Identifier 88600- 6 Result Time 2019-03-08 06:25:00Unknown Test Item Value Reference Range Comments Unknown (test code = 718-7) 10.8 g/dL Unknown 14.0-18.0 F Ordering Physician UnknownLaboratory Bcgznks8243-59-08 06:25:00Identifier 97312- 6 Result Time 2019-03-08 06:25:00Unknown Test Item Value Reference Range Comments Unknown (test code = 4544-3) 32 % Unknown 42-52 F Ordering Physician UnknownLaboratory Ugcyrhy1460-58-27 06:45:00Identifier 42145- 6 Result Time 2019-03-06 06:45:00Unknown Test Item Value Reference Range Comments Unknown (test code = 2777-1) 3.3 mg/dL Unknown 2.5-5.0 F Ordering Physician UnknownLaboratory Wiwofif2463-96-90 06:45:00Identifier 02309- 6 Result Time 2019-03-06 06:45:00Unknown Test Item Value Reference Range Comments Unknown (test code = 76896-2) 2.1 mg/dL Unknown 1.9-2.7 F Ordering Physician UnknownLaboratory Ydfstwh4316-17-98 13:59:00Identifier 65367- 6 Result Time 2019-03-04 13:59:00Unknown Test Item Value Reference Range Comments Unknown (test code = NullTestCode) Unknown Unknown F Ordering Physician UnknownLaboratory Xrwtyri7147-12-99 13:59:00Identifier 34887- 6 Result Time 2019-03-04 13:59:00Unknown Test Item Value Reference Range Comments Unknown (test code = 3034-6) 203 mg/dL Unknown 203-362 F Ordering Physician UnknownLaboratory Qvlxyhy2021-58-14 13:59:00Identifier 62156- 6 Result Time 2019-03-04 13:59:00Unknown Test Item Value Reference Range Comments Unknown (test code = 2500-7) 284 mcg/dL Unknown 250-450 F Ordering Physician UnknownLaboratory Vuwyaki6846-71-22 13:59:00Identifier 25539- 6 Result Time 2019-03-04 13:59:00Unknown Test Item Value Reference Range Comments Unknown (test code = NullTestCode) 13 % Unknown 15-55 F Ordering Physician UnknownLaboratory Vxrbcla3343-28-30 13:59:00Identifier 96636- 6 Result Time 2019-03-04 13:59:00Unknown Test Item Value Reference Range Comments Unknown (test code = 2498-4) 36 ug/dL Unknown 50-212 F Ordering Physician UnknownLaboratory Igitjiy7832-15-92 17:35:00Identifier 95886- 6 Result Time 2019-03-01 17:35:00Unknown Test Item Value Reference Range Comments Unknown (test code = 2132-9) 866 pg/mL Unknown 180-914 F Ordering Physician UnknownLaboratory Hdicpey1944-55-09 17:35:00Identifier 37425- 6 Result Time 2019-03-01 17:35:00Unknown Test Item Value Reference Range Comments Unknown (test code = 3053-6) 51 ng/dL Unknown 87-178 F Ordering Physician UnknownLaboratory Wujvxlf7115-58-68 17:35:00Identifier 30971- 6 Result Time 2019-03-01 17:35:00Unknown Test Item Value Reference Range Comments Unknown (test code = 3051-0) 3.10 pg/mL Unknown 2.5-3.9 F Ordering Physician UnknownLaboratory Pugsdkc9332-66-83 17:35:00Identifier 36655- 6 Result Time 2019-03-01 17:35:00Unknown Test Item Value Reference Range Comments Unknown (test code = 3024-7) 0.86 ng/dL Unknown 0.61-1.12 F Ordering Physician UnknownLaboratory Xgoawuh3691-28-40 17:35:00Identifier 49642- 6 Result Time 2019-03-01 17:35:00Unknown Test Item Value Reference Range Comments Unknown (test code = 2157-6) 52 U/L Unknown 10-223 F Ordering Physician UnknownLaboratory Bqbtwdf1683-41-93 17:35:00Identifier 53517- 6 Result Time 2019-03-01 17:35:00Unknown Test Item Value Reference Range Comments Unknown (test code = 12727-0) 41 mcmol/L Unknown 16-53 F Ordering Physician UnknownLaboratory Gyxiulw2133-92-07 16:21:00Identifier 24660- 6 Result Time 2019-03-01 16:21:00Unknown Test Item Value Reference Range Comments Unknown (test code = 77031-5) 0.10 ng/mL Unknown Unknown F Ordering Physician UnknownLaboratory Awhvidf4844-89-49 05:20:00Identifier 27146- 6 Result Time 2019-03-01 05:20:00Unknown Test Item Value Reference Range Comments Unknown (test code = 09132-5) 0.0 Unknown Unknown F Ordering Physician UnknownLaboratory Tdyzffp3817-63-68 05:20:00Identifier 47287- 6 Result Time 2019-03-01 05:20:00Unknown Test Item Value Reference Range Comments Unknown (test code = 771-6) 0.0 10^3/ul Unknown Unknown F Ordering Physician UnknownLaboratory Dalvgoi9979-48-59 05:20:00Identifier 10967- 6 Result Time 2019-03-01 05:20:00Unknown Test Item Value Reference Range Comments Unknown (test code = 770-8) 92.0 % Unknown Unknown F Ordering Physician UnknownLaboratory Zcxidqf2663-67-49 05:20:00Identifier 27725- 6 Result Time 2019-03-01 05:20:00Unknown Test Item Value Reference Range Comments Unknown (test code = 5905-5) 1.8 % Unknown Unknown F Ordering Physician UnknownLaboratory Jpmewba0026-22-39 05:20:00Identifier 44543- 6 Result Time 2019-03-01 05:20:00Unknown Test Item Value Reference Range Comments Unknown (test code = 736-9) 6.0 % Unknown Unknown F Ordering Physician UnknownLaboratory Sdarzsp1433-15-51 05:20:00Identifier 19485- 6 Result Time 2019-03-01 05:20:00Unknown Test Item Value Reference Range Comments Unknown (test code = 713-8) 0.0 % Unknown Unknown F Ordering Physician UnknownLaboratory Uxwitxp9286-93-78 05:20:00Identifier 78158- 6 Result Time 2019-03-01 05:20:00Unknown Test Item Value Reference Range Comments Unknown (test code = 706-2) 0.2 % Unknown Unknown F Ordering Physician UnknownLaboratory Ezxinqf4048-27-99 05:20:00Identifier 56539- 6 Result Time 2019-03-01 05:20:00Unknown Test Item Value Reference Range Comments Unknown (test code = WMS7917) 7.0 10^3/ul Unknown 1.5-7.7 F Ordering Physician UnknownLaboratory Lxtmnrk0184-30-56 05:20:00Identifier 94352- 6 Result Time 2019-03-01 05:20:00Unknown Test Item Value Reference Range Comments Unknown (test code = 742-7) 0.1 10^3/ul Unknown 0-0.8 F Ordering Physician UnknownLaboratory Gxkwxmq6359-12-91 05:20:00Identifier 99040- 6 Result Time 2019-03-01 05:20:00Unknown Test Item Value Reference Range Comments Unknown (test code = 731-0) 0.5 10^3/ul Unknown 1.0-4.8 F Ordering Physician UnknownLaboratory Jkqqbkt6434-02-11 05:20:00Identifier 21708- 6 Result Time 2019-03-01 05:20:00Unknown Test Item Value Reference Range Comments Unknown (test code = 711-2) 0.0 10^3/ul Unknown 0-0.6 F Ordering Physician UnknownLaboratory Fulyaiq4400-82-63 05:20:00Identifier 87036- 6 Result Time 2019-03-01 05:20:00Unknown Test Item Value Reference Range Comments Unknown (test code = 704-7) 0.0 10^3/ul Unknown 0-0.2 F Ordering Physician UnknownLaboratory Dzqgekl0662-24-87 01:05:00Identifier 50092- 6 Result Time 2019-03-01 01:05:00Unknown Test Item Value Reference Range Comments Unknown (test code = 2744-1) 7.37 Unknown 7.35-7.45 F Ordering Physician UnknownLaboratory Rccrbbp6602-30-04 01:05:00Identifier 35866- 6 Result Time 2019-03-01 01:05:00Unknown Test Item Value Reference Range Comments Unknown (test code = 07861-0) 211 mmHg Unknown 80-100 F Ordering Physician UnknownLaboratory Lvinatr6006-27-73 01:05:00Identifier 08093- 6 Result Time 2019-03-01 01:05:00Unknown Test Item Value Reference Range Comments Unknown (test code = NullTestCode) 51 mmHg Unknown 35-45 F Ordering Physician UnknownLaboratory Mxgqsvr6285-81-30 01:05:00Identifier 33309- 6 Result Time 2019-03-01 01:05:00Unknown Test Item Value Reference Range Comments Unknown (test code = 2708-6) 99.9 % Unknown 94.0-98.0 F Ordering Physician UnknownLaboratory Qzstidn2420-05-32 01:05:00Identifier 20584- 6 Result Time 2019-03-01 01:05:00Unknown Test Item Value Reference Range Comments Unknown (test code = 1960-4) 27.4 mmol/L Unknown 19-31 F Ordering Physician UnknownLaboratory Ebuuqws2402-31-41 01:05:00Identifier 27279- 6 Result Time 2019-03-01 01:05:00Unknown Test Item Value Reference Range Comments Unknown (test code = 1925-7) 3.1 mmol/L Unknown -2.0-2.0 F Ordering Physician UnknownLaboratory Nzynxiu8632-35-86 01:05:00Identifier 34316- 6 Result Time 2019-03-01 01:05:00Unknown Test Item Value Reference Range Comments Unknown (test code = NullTestCode) 80 Unknown Unknown F Ordering Physician UnknownLaboratory Zgdfaxr6564-04-38 01:05:00Identifier 98663- 6 Result Time 2019-03-01 01:05:00Unknown Test Item Value Reference Range Comments Unknown (test code = NullTestCode) 500 Unknown Unknown F Ordering Physician UnknownLaboratory Wwsojzg9537-75-25 01:05:00Identifier 52073- 6 Result Time 2019-03-01 01:05:00Unknown Test Item Value Reference Range Comments Unknown (test code = NullTestCode) 15 Unknown Unknown F Ordering Physician UnknownLaboratory Cpuvypz7543-45-24 01:05:00Identifier 35089- 6 Result Time 2019-03-01 01:05:00Unknown Test Item Value Reference Range Comments Unknown (test code = NullTestCode) 5 Unknown Unknown F Ordering Physician UnknownLaboratory Wfhvhee7046-05-98 20:56:00Identifier 54445- 6 Result Time 2019-02-28 20:56:00Unknown Test Item Value Reference Range Comments Unknown (test code = 3016-3) 1.25 mcIU/mL Unknown 0.34-5.60 F Ordering Physician UnknownLaboratory Oncmioi8081-69-65 20:56:00Identifier 79561- 6 Result Time 2019-02-28 20:56:00Unknown Test Item Value Reference Range Comments Unknown (test code = 2885-2) 7.0 g/dL Unknown 6.4-8.9 F Ordering Physician UnknownLaboratory Vhckhza6370-09-09 20:56:00Identifier 33134- 6 Result Time 2019-02-28 20:56:00Unknown Test Item Value Reference Range Comments Unknown (test code = 1975-2) 0.50 mg/dL Unknown 0.2-1.0 F Ordering Physician UnknownLaboratory Izlxhvl1103-40-17 20:56:00Identifier 51407- 6 Result Time 2019-02-28 20:56:00Unknown Test Item Value Reference Range Comments Unknown (test code = NullTestCode) 3.4 g/dL Unknown 2-4 F Ordering Physician UnknownLaboratory Mvoodcn6863-99-14 20:56:00Identifier 77016- 6 Result Time 2019-02-28 20:56:00Unknown Test Item Value Reference Range Comments Unknown (test code = 1988-5) 64.61 mg/L Unknown 0-8.00 F Ordering Physician UnknownLaboratory Uoykwqa1361-14-34 20:56:00Identifier 70381- 6 Result Time 2019-02-28 20:56:00Unknown Test Item Value Reference Range Comments Unknown (test code = 1920-8) 16 U/L Unknown 13-39 F Ordering Physician UnknownLaboratory Raijogw0430-19-63 20:56:00Identifier 83144- 6 Result Time 2019-02-28 20:56:00Unknown Test Item Value Reference Range Comments Unknown (test code = 6768-6) 60 U/L Unknown 34-104 F Ordering Physician UnknownLaboratory Pmbdkrs3743-43-97 20:56:00Identifier 68308- 6 Result Time 2019-02-28 20:56:00Unknown Test Item Value Reference Range Comments Unknown (test code = 1759-0) 1.1 Unknown 1-3 F Ordering Physician UnknownLaboratory Aykdvux5532-42-80 20:56:00Identifier 10888- 6 Result Time 2019-02-28 20:56:00Unknown Test Item Value Reference Range Comments Unknown (test code = 07318-4) 3.6 g/dL Unknown 3.2-5.2 F Ordering Physician UnknownLaboratory Vlsfmfc0981-80-54 20:56:00Identifier 48664- 6 Result Time 2019-02-28 20:56:00Unknown Test Item Value Reference Range Comments Unknown (test code = 1742-6) 11 U/L Unknown 7-52 F Ordering Physician UnknownLaboratory Hujtubo0826-94-88 20:56:00Identifier 05663- 6 Result Time 2019-02-28 20:56:00Unknown Test Item Value Reference Range Comments Unknown (test code = 36662-9) 224 pg/mL Unknown Unknown F Ordering Physician UnknownLaboratory Hedzyan2312-65-33 20:56:00Identifier 46370- 6 Result Time 2019-02-28 20:56:00Unknown Test Item Value Reference Range Comments Unknown (test code = 2524-7) 1.4 mmol/L Unknown 0.5-2.0 F Ordering Physician UnknownLaboratory Woxkyyw0251-36-80 20:56:00Identifier 35584- 6 Result Time 2019-02-28 20:56:00Unknown Test Item Value Reference Range Comments Unknown (test code = 22424-3) 1.12 Unknown 0.82-1.09 F Ordering Physician UnknownLaboratory Fyamuhr8427-90-85 20:56:00Identifier 69945- 6 Result Time 2019-02-28 20:56:00Unknown Test Item Value Reference Range Comments Unknown (test code = 34095-9) 36.2 seconds Unknown 26.0-38.0 F Ordering Physician UnknownLaboratory Tqcpvvv2958-58-00 20:49:00Identifier 57750- 6 Result Time 2019-02-28 20:49:00Unknown Test Item Value Reference Range Comments Unknown (test code = NullTestCode) 6.0 Unknown 5-9 F Ordering Physician UnknownLaboratory Agiakpc5713-64-19 20:49:00Identifier 54775- 6 Result Time 2019-02-28 20:49:00Unknown Test Item Value Reference Range Comments Unknown (test code = 54148-6) 1.008 Unknown 1.010-1.030 F Ordering Physician UnknownLaboratory Wmtcqzp8100-96-34 17:41:00Identifier 48807- 6 Result Time 2019-02-28 17:41:00Unknown Test Item Value Reference Range Comments Unknown (test code = 2746-6) 7.38 Unknown 7.32-7.43 F Ordering Physician UnknownLaboratory Dmclciv8368-54-45 17:41:00Identifier 45918- 6 Result Time 2019-02-28 17:41:00Unknown Test Item Value Reference Range Comments Unknown (test code = 2705-2) 51.0 mmHg Unknown 35-45 F Ordering Physician UnknownLaboratory Xegrued5495-09-59 17:41:00Identifier 64199- 6 Result Time 2019-02-28 17:41:00Unknown Test Item Value Reference Range Comments Unknown (test code = 2021-4) 61 mmHg Unknown 41-51 F Ordering Physician UnknownLaboratory Btmbcli4190-95-82 17:41:00Identifier 92694- 6 Result Time 2019-02-28 17:41:00Unknown Test Item Value Reference Range Comments Unknown (test code = 28234-5) 86.2 % Unknown 70-80 F Ordering Physician UnknownLaboratory Gfvyvyr4889-62-05 17:41:00Identifier 30340- 6 Result Time 2019-02-28 17:41:00Unknown Test Item Value Reference Range Comments Unknown (test code = NullTestCode) 31.3 mmol/L Unknown 24-28 F Ordering Physician UnknownLaboratory Uqnmqpf6961-18-30 17:41:00Identifier 06332- 6 Result Time 2019-02-28 17:41:00Unknown Test Item Value Reference Range Comments Unknown (test code = NullTestCode) 8.7 mmol/L Unknown 0.0-4.0 F Ordering Physician UnknownLaboratory Qygiaqv5380-29-87 08:40:00Identifier 76163- 6 Result Time 2019-02-10 08:40:00Unknown Test Item Value Reference Range Comments Unknown (test code = 4537-7) 68 mm/Hr Unknown 0-19 F Ordering Physician Unknown
--- OUTSIDE RECORDS SUMMARY | 2019-06-21 08:18 | XMS REPORT ---
:1950 Author Organization [facility] Care Team Providers Name Role [...] Result Comments Laboratory Studies 2019-03-08 12:13:00 Identifier [id number] Result Time Unknown 2019-03-08 12:13:00 Test Item Value Reference Range Comments Unknown (test code = 2339-0) 312 mg/dL Unknown 70-100 F Ordering Physician UnknownLaboratory Cddjdzw5201-91-18 06:25:00Identifier 47690- 6 Result Time 2019-03-08 06:25:00Unknown Test Item Value Reference Range Comments Unknown (test code = 2951-2) 136 mmol/L Unknown 135-145 F Ordering Physician UnknownLaboratory Wcapqeq7508-12-95 06:25:00Identifier 55396- 6 Result Time 2019-03-08 06:25:00Unknown Test Item Value Reference Range Comments Unknown (test code = 2823-3) 3.7 mmol/L Unknown 3.5-5.0 F Ordering Physician UnknownLaboratory Wrfywdn6735-57-69 06:25:00Identifier 49311- 6 Result Time 2019-03-08 06:25:00Unknown Test Item Value Reference Range Comments Unknown (test code = 2345-7) 175 mg/dL Unknown 70-100 F Ordering Physician UnknownLaboratory Vsreqyr4811-07-64 06:25:00Identifier 40449- 6 Result Time 2019-03-08 06:25:00Unknown Test Item Value Reference Range Comments Unknown (test code = 07049-9) 49.4 Unknown Unknown F Ordering Physician UnknownLaboratory Ttjqsop2939-70-71 06:25:00Identifier 34572- 6 Result Time 2019-03-08 06:25:00Unknown Test Item Value Reference Range Comments Unknown (test code = NullTestCode) 59.8 Unknown Unknown F Ordering Physician UnknownLaboratory Mytkier2828-21-98 06:25:00Identifier 58685- 6 Result Time 2019-03-08 06:25:00Unknown Test Item Value Reference Range Comments Unknown (test code = 2160-0) 1.42 mg/dL Unknown 0.67-1.17 F Ordering Physician UnknownLaboratory Azucrug3941-26-81 06:25:00Identifier 84887- 6 Result Time 2019-03-08 06:25:00Unknown Test Item Value Reference Range Comments Unknown (test code = 2075-0) 97 mmol/L Unknown 101-111 F Ordering Physician UnknownLaboratory Ilkogpw0944-33-32 06:25:00Identifier 39336- 6 Result Time 2019-03-08 06:25:00Unknown Test Item Value Reference Range Comments Unknown (test code = 2028-9) 33 mmol/L Unknown 22-32 F Ordering Physician UnknownLaboratory Svpolpo7423-61-57 06:25:00Identifier 65800- 6 Result Time 2019-03-08 06:25:00Unknown Test Item Value Reference Range Comments Unknown (test code = 15626-7) 9.6 mg/dL Unknown 8.6-10.3 F Ordering Physician UnknownLaboratory Nzmyisv4320-82-59 06:25:00Identifier 33106- 6 Result Time 2019-03-08 06:25:00Unknown Test Item Value Reference Range Comments Unknown (test code = 3094-0) 28 mg/dL Unknown 6-24 F Ordering Physician UnknownLaboratory Hujdxnd7063-94-13 06:25:00Identifier 47229- 6 Result Time 2019-03-08 06:25:00Unknown Test Item Value Reference Range Comments Unknown (test code = 3097-3) 19.7 Unknown 8-20 F Ordering Physician UnknownLaboratory Erokqgy0859-20-54 06:25:00Identifier 00656- 6 Result Time 2019-03-08 06:25:00Unknown Test Item Value Reference Range Comments Unknown (test code = 29972-3) 6 mmol/L Unknown 2-11 F Ordering Physician UnknownLaboratory Qcxjdzj0106-07-96 06:25:00Identifier 83836- 6 Result Time 2019-03-08 06:25:00Unknown Test Item Value Reference Range Comments Unknown (test code = 31021-9) 7.7 10^3/uL Unknown 3.5-10.8 F Ordering Physician UnknownLaboratory Xzmhenx2058-67-63 06:25:00Identifier 09411- 6 Result Time 2019-03-08 06:25:00Unknown Test Item Value Reference Range Comments Unknown (test code = 788-0) 15 % Unknown 10-15 F Ordering Physician UnknownLaboratory Bgrebie4168-10-45 06:25:00Identifier 30081- 6 Result Time 2019-03-08 06:25:00Unknown Test Item Value Reference Range Comments Unknown (test code = 789-8) 3.94 10^6 /uL Unknown 4.18-5.48 F Ordering Physician UnknownLaboratory Oouqchp9940-39-10 06:25:00Identifier 00127- 6 Result Time 2019-03-08 06:25:00Unknown Test Item Value Reference Range Comments Unknown (test code = 777-3) 164 10^3/uL Unknown 150-450 F Ordering Physician UnknownLaboratory Inuglrv0674-70-70 06:25:00Identifier 71896- 6 Result Time 2019-03-08 06:25:00Unknown Test Item Value Reference Range Comments Unknown (test code = 93874-5) 7.8 fL Unknown 7.4-10.4 F Ordering Physician UnknownLaboratory Bjtuyvy5686-99-98 06:25:00Identifier 22906- 6 Result Time 2019-03-08 06:25:00Unknown Test Item Value Reference Range Comments Unknown (test code = 787-2) 81 fL Unknown 80-94 F Ordering Physician UnknownLaboratory Gxqsyyq1651-41-19 06:25:00Identifier 67304- 6 Result Time 2019-03-08 06:25:00Unknown Test Item Value Reference Range Comments Unknown (test code = 786-4) 34 g/dL Unknown 31-36 F Ordering Physician UnknownLaboratory Cnrqvji4075-06-21 06:25:00Identifier 84278- 6 Result Time 2019-03-08 06:25:00Unknown Test Item Value Reference Range Comments Unknown (test code = 785-6) 27 pg Unknown 27-31 F Ordering Physician UnknownLaboratory Kiobsud9734-49-82 06:25:00Identifier 24612- 6 Result Time 2019-03-08 06:25:00Unknown Test Item Value Reference Range Comments Unknown (test code = 718-7) 10.8 g/dL Unknown 14.0-18.0 F Ordering Physician UnknownLaboratory Cakuwde8068-90-52 06:25:00Identifier 90274- 6 Result Time 2019-03-08 06:25:00Unknown Test Item Value Reference Range Comments Unknown (test code = 4544-3) 32 % Unknown 42-52 F Ordering Physician UnknownLaboratory Dteqnwl4253-53-93 06:45:00Identifier 83389- 6 Result Time 2019-03-06 06:45:00Unknown Test Item Value Reference Range Comments Unknown (test code = 2777-1) 3.3 mg/dL Unknown 2.5-5.0 F Ordering Physician UnknownLaboratory Zwqyiph0903-68-60 06:45:00Identifier 97400- 6 Result Time 2019-03-06 06:45:00Unknown Test Item Value Reference Range Comments Unknown (test code = 34847-5) 2.1 mg/dL Unknown 1.9-2.7 F Ordering Physician UnknownLaboratory Zsyyrtt7032-55-45 13:59:00Identifier 82896- 6 Result Time 2019-03-04 13:59:00Unknown Test Item Value Reference Range Comments Unknown (test code = NullTestCode) Unknown Unknown F Ordering Physician UnknownLaboratory Ycqdzqt2628-48-84 13:59:00Identifier 93754- 6 Result Time 2019-03-04 13:59:00Unknown Test Item Value Reference Range Comments Unknown (test code = 3034-6) 203 mg/dL Unknown 203-362 F Ordering Physician UnknownLaboratory Efhnogi6226-40-52 13:59:00Identifier 23751- 6 Result Time 2019-03-04 13:59:00Unknown Test Item Value Reference Range Comments Unknown (test code = 2500-7) 284 mcg/dL Unknown 250-450 F Ordering Physician UnknownLaboratory Cxirqew2718-05-49 13:59:00Identifier 37342- 6 Result Time 2019-03-04 13:59:00Unknown Test Item Value Reference Range Comments Unknown (test code = NullTestCode) 13 % Unknown 15-55 F Ordering Physician UnknownLaboratory Pkjeaon4215-77-03 13:59:00Identifier 62141- 6 Result Time 2019-03-04 13:59:00Unknown Test Item Value Reference Range Comments Unknown (test code = 2498-4) 36 ug/dL Unknown 50-212 F Ordering Physician UnknownLaboratory Jsozgqh0021-11-60 17:35:00Identifier 27235- 6 Result Time 2019-03-01 17:35:00Unknown Test Item Value Reference Range Comments Unknown (test code = 2132-9) 866 pg/mL Unknown 180-914 F Ordering Physician UnknownLaboratory Owrljpx3486-11-53 17:35:00Identifier 32644- 6 Result Time 2019-03-01 17:35:00Unknown Test Item Value Reference Range Comments Unknown (test code = 3053-6) 51 ng/dL Unknown 87-178 F Ordering Physician UnknownLaboratory Tokkdfv7511-43-86 17:35:00Identifier 20220- 6 Result Time 2019-03-01 17:35:00Unknown Test Item Value Reference Range Comments Unknown (test code = 3051-0) 3.10 pg/mL Unknown 2.5-3.9 F Ordering Physician UnknownLaboratory Qbnqzgy4954-40-71 17:35:00Identifier 41951- 6 Result Time 2019-03-01 17:35:00Unknown Test Item Value Reference Range Comments Unknown (test code = 3024-7) 0.86 ng/dL Unknown 0.61-1.12 F Ordering Physician UnknownLaboratory Juzehqw4482-99-67 17:35:00Identifier 37357- 6 Result Time 2019-03-01 17:35:00Unknown Test Item Value Reference Range Comments Unknown (test code = 2157-6) 52 U/L Unknown 10-223 F Ordering Physician UnknownLaboratory Eazjvfp5785-85-97 17:35:00Identifier 24555- 6 Result Time 2019-03-01 17:35:00Unknown Test Item Value Reference Range Comments Unknown (test code = 22726-3) 41 mcmol/L Unknown 16-53 F Ordering Physician UnknownLaboratory Pgpkezl6050-89-03 16:21:00Identifier 61628- 6 Result Time 2019-03-01 16:21:00Unknown Test Item Value Reference Range Comments Unknown (test code = 88843-7) 0.10 ng/mL Unknown Unknown F Ordering Physician UnknownLaboratory Rerwdqw3770-44-74 05:20:00Identifier 74895- 6 Result Time 2019-03-01 05:20:00Unknown Test Item Value Reference Range Comments Unknown (test code = 63175-4) 0.0 Unknown Unknown F Ordering Physician UnknownLaboratory Mptcwjx2242-39-18 05:20:00Identifier 80689- 6 Result Time 2019-03-01 05:20:00Unknown Test Item Value Reference Range Comments Unknown (test code = 771-6) 0.0 10^3/ul Unknown Unknown F Ordering Physician UnknownLaboratory Hhrzzym8310-64-57 05:20:00Identifier 79117- 6 Result Time 2019-03-01 05:20:00Unknown Test Item Value Reference Range Comments Unknown (test code = 770-8) 92.0 % Unknown Unknown F Ordering Physician UnknownLaboratory Oehsnhw4155-77-30 05:20:00Identifier 14212- 6 Result Time 2019-03-01 05:20:00Unknown Test Item Value Reference Range Comments Unknown (test code = 5905-5) 1.8 % Unknown Unknown F Ordering Physician UnknownLaboratory Irwrqzw8051-91-59 05:20:00Identifier 61440- 6 Result Time 2019-03-01 05:20:00Unknown Test Item Value Reference Range Comments Unknown (test code = 736-9) 6.0 % Unknown Unknown F Ordering Physician UnknownLaboratory Lepglas7833-59-73 05:20:00Identifier 55234- 6 Result Time 2019-03-01 05:20:00Unknown Test Item Value Reference Range Comments Unknown (test code = 713-8) 0.0 % Unknown Unknown F Ordering Physician UnknownLaboratory Goasteu0925-68-33 05:20:00Identifier 11665- 6 Result Time 2019-03-01 05:20:00Unknown Test Item Value Reference Range Comments Unknown (test code = 706-2) 0.2 % Unknown Unknown F Ordering Physician UnknownLaboratory Khzfpzp1184-93-18 05:20:00Identifier 58642- 6 Result Time 2019-03-01 05:20:00Unknown Test Item Value Reference Range Comments Unknown (test code = ZRD9480) 7.0 10^3/ul Unknown 1.5-7.7 F Ordering Physician UnknownLaboratory Byjlvkr2763-27-06 05:20:00Identifier 37546- 6 Result Time 2019-03-01 05:20:00Unknown Test Item Value Reference Range Comments Unknown (test code = 742-7) 0.1 10^3/ul Unknown 0-0.8 F Ordering Physician UnknownLaboratory Vrzhlfw1818-55-11 05:20:00Identifier 64751- 6 Result Time 2019-03-01 05:20:00Unknown Test Item Value Reference Range Comments Unknown (test code = 731-0) 0.5 10^3/ul Unknown 1.0-4.8 F Ordering Physician UnknownLaboratory Jinuxli1680-67-50 05:20:00Identifier 97587- 6 Result Time 2019-03-01 05:20:00Unknown Test Item Value Reference Range Comments Unknown (test code = 711-2) 0.0 10^3/ul Unknown 0-0.6 F Ordering Physician UnknownLaboratory Hzqnwet2651-62-15 05:20:00Identifier 13531- 6 Result Time 2019-03-01 05:20:00Unknown Test Item Value Reference Range Comments Unknown (test code = 704-7) 0.0 10^3/ul Unknown 0-0.2 F Ordering Physician UnknownLaboratory Tpnnnwe8206-69-17 01:05:00Identifier 30509- 6 Result Time 2019-03-01 01:05:00Unknown Test Item Value Reference Range Comments Unknown (test code = 2744-1) 7.37 Unknown 7.35-7.45 F Ordering Physician UnknownLaboratory Hlgdjtn5934-72-30 01:05:00Identifier 87183- 6 Result Time 2019-03-01 01:05:00Unknown Test Item Value Reference Range Comments Unknown (test code = 09191-2) 211 mmHg Unknown 80-100 F Ordering Physician UnknownLaboratory Hupargd6602-24-71 01:05:00Identifier 01488- 6 Result Time 2019-03-01 01:05:00Unknown Test Item Value Reference Range Comments Unknown (test code = NullTestCode) 51 mmHg Unknown 35-45 F Ordering Physician UnknownLaboratory Koygcyn2623-81-82 01:05:00Identifier 75130- 6 Result Time 2019-03-01 01:05:00Unknown Test Item Value Reference Range Comments Unknown (test code = 2708-6) 99.9 % Unknown 94.0-98.0 F Ordering Physician UnknownLaboratory Nhmexuu5884-57-20 01:05:00Identifier 66945- 6 Result Time 2019-03-01 01:05:00Unknown Test Item Value Reference Range Comments Unknown (test code = 1960-4) 27.4 mmol/L Unknown 19-31 F Ordering Physician UnknownLaboratory Imruwpb3933-87-52 01:05:00Identifier 81503- 6 Result Time 2019-03-01 01:05:00Unknown Test Item Value Reference Range Comments Unknown (test code = 1925-7) 3.1 mmol/L Unknown -2.0-2.0 F Ordering Physician UnknownLaboratory Lddboce2571-90-01 01:05:00Identifier 10335- 6 Result Time 2019-03-01 01:05:00Unknown Test Item Value Reference Range Comments Unknown (test code = NullTestCode) 80 Unknown Unknown F Ordering Physician UnknownLaboratory Dbzecsw5857-75-26 01:05:00Identifier 25221- 6 Result Time 2019-03-01 01:05:00Unknown Test Item Value Reference Range Comments Unknown (test code = NullTestCode) 500 Unknown Unknown F Ordering Physician UnknownLaboratory Jdnymdx3295-19-91 01:05:00Identifier 91447- 6 Result Time 2019-03-01 01:05:00Unknown Test Item Value Reference Range Comments Unknown (test code = NullTestCode) 15 Unknown Unknown F Ordering Physician UnknownLaboratory Cuidill0820-28-18 01:05:00Identifier 04823- 6 Result Time 2019-03-01 01:05:00Unknown Test Item Value Reference Range Comments Unknown (test code = NullTestCode) 5 Unknown Unknown F Ordering Physician UnknownLaboratory Bcwaylv5235-80-61 20:56:00Identifier 65551- 6 Result Time 2019-02-28 20:56:00Unknown Test Item Value Reference Range Comments Unknown (test code = 3016-3) 1.25 mcIU/mL Unknown 0.34-5.60 F Ordering Physician UnknownLaboratory Fjzpayr4485-76-02 20:56:00Identifier 72607- 6 Result Time 2019-02-28 20:56:00Unknown Test Item Value Reference Range Comments Unknown (test code = 2885-2) 7.0 g/dL Unknown 6.4-8.9 F Ordering Physician UnknownLaboratory Vyfeiuq5471-35-29 20:56:00Identifier 92068- 6 Result Time 2019-02-28 20:56:00Unknown Test Item Value Reference Range Comments Unknown (test code = 1975-2) 0.50 mg/dL Unknown 0.2-1.0 F Ordering Physician UnknownLaboratory Luhujgg8221-10-37 20:56:00Identifier 86145- 6 Result Time 2019-02-28 20:56:00Unknown Test Item Value Reference Range Comments Unknown (test code = NullTestCode) 3.4 g/dL Unknown 2-4 F Ordering Physician UnknownLaboratory Svwddol7047-94-16 20:56:00Identifier 63811- 6 Result Time 2019-02-28 20:56:00Unknown Test Item Value Reference Range Comments Unknown (test code = 1988-5) 64.61 mg/L Unknown 0-8.00 F Ordering Physician UnknownLaboratory Tlnbbzp9712-41-74 20:56:00Identifier 27678- 6 Result Time 2019-02-28 20:56:00Unknown Test Item Value Reference Range Comments Unknown (test code = 1920-8) 16 U/L Unknown 13-39 F Ordering Physician UnknownLaboratory Cekscgq5218-28-02 20:56:00Identifier 94099- 6 Result Time 2019-02-28 20:56:00Unknown Test Item Value Reference Range Comments Unknown (test code = 6768-6) 60 U/L Unknown 34-104 F Ordering Physician UnknownLaboratory Kudgkmi9186-55-18 20:56:00Identifier 67475- 6 Result Time 2019-02-28 20:56:00Unknown Test Item Value Reference Range Comments Unknown (test code = 1759-0) 1.1 Unknown 1-3 F Ordering Physician UnknownLaboratory Pyssiwj4271-73-58 20:56:00Identifier 84684- 6 Result Time 2019-02-28 20:56:00Unknown Test Item Value Reference Range Comments Unknown (test code = 17955-5) 3.6 g/dL Unknown 3.2-5.2 F Ordering Physician UnknownLaboratory Vgrdppj3421-21-98 20:56:00Identifier 33978- 6 Result Time 2019-02-28 20:56:00Unknown Test Item Value Reference Range Comments Unknown (test code = 1742-6) 11 U/L Unknown 7-52 F Ordering Physician UnknownLaboratory Dqlvobn2835-22-92 20:56:00Identifier 31529- 6 Result Time 2019-02-28 20:56:00Unknown Test Item Value Reference Range Comments Unknown (test code = 84294-7) 224 pg/mL Unknown Unknown F Ordering Physician UnknownLaboratory Kouolvy2047-93-11 20:56:00Identifier 90549- 6 Result Time 2019-02-28 20:56:00Unknown Test Item Value Reference Range Comments Unknown (test code = 2524-7) 1.4 mmol/L Unknown 0.5-2.0 F Ordering Physician UnknownLaboratory Pbididq2114-98-28 20:56:00Identifier 37753- 6 Result Time 2019-02-28 20:56:00Unknown Test Item Value Reference Range Comments Unknown (test code = 37130-7) 1.12 Unknown 0.82-1.09 F Ordering Physician UnknownLaboratory Tuacdbf4659-83-44 20:56:00Identifier 81766- 6 Result Time 2019-02-28 20:56:00Unknown Test Item Value Reference Range Comments Unknown (test code = 22876-0) 36.2 seconds Unknown 26.0-38.0 F Ordering Physician UnknownLaboratory Oqtcdwh1582-89-93 20:49:00Identifier 70193- 6 Result Time 2019-02-28 20:49:00Unknown Test Item Value Reference Range Comments Unknown (test code = NullTestCode) 6.0 Unknown 5-9 F Ordering Physician UnknownLaboratory Rncgazm6143-83-49 20:49:00Identifier 29925- 6 Result Time 2019-02-28 20:49:00Unknown Test Item Value Reference Range Comments Unknown (test code = 05463-9) 1.008 Unknown 1.010-1.030 F Ordering Physician UnknownLaboratory Jeqecbp2879-12-43 17:41:00Identifier 04818- 6 Result Time 2019-02-28 17:41:00Unknown Test Item Value Reference Range Comments Unknown (test code = 2746-6) 7.38 Unknown 7.32-7.43 F Ordering Physician UnknownLaboratory Byorbqz2056-24-97 17:41:00Identifier 09083- 6 Result Time 2019-02-28 17:41:00Unknown Test Item Value Reference Range Comments Unknown (test code = 2705-2) 51.0 mmHg Unknown 35-45 F Ordering Physician UnknownLaboratory Waekhdv4975-69-79 17:41:00Identifier 57327- 6 Result Time 2019-02-28 17:41:00Unknown Test Item Value Reference Range Comments Unknown (test code = 2021-4) 61 mmHg Unknown 41-51 F Ordering Physician UnknownLaboratory Ymvksgg9343-67-99 17:41:00Identifier 69233- 6 Result Time 2019-02-28 17:41:00Unknown Test Item Value Reference Range Comments Unknown (test code = 15320-7) 86.2 % Unknown 70-80 F Ordering Physician UnknownLaboratory Rmxuvms2775-02-84 17:41:00Identifier 69573- 6 Result Time 2019-02-28 17:41:00Unknown Test Item Value Reference Range Comments Unknown (test code = NullTestCode) 31.3 mmol/L Unknown 24-28 F Ordering Physician UnknownLaboratory Meenujq2917-91-90 17:41:00Identifier 97406- 6 Result Time 2019-02-28 17:41:00Unknown Test Item Value Reference Range Comments Unknown (test code = NullTestCode) 8.7 mmol/L Unknown 0.0-4.0 F Ordering Physician UnknownLaboratory Ecpdnte6715-22-43 08:40:00Identifier 22092- 6 Result Time 2019-02-10 08:40:00Unknown Test Item Value Reference Range Comments Unknown (test code = 4537-7) 68 mm/Hr Unknown 0-19 F Ordering Physician Unknown
--- OUTSIDE RECORDS SUMMARY | 2019-06-21 08:18 | XMS REPORT ---
:1950 Author Organization [facility] Care Team Providers Name Role Phone [...] Result Comments Laboratory Studies 2019-03-08 12:13:00 Identifier [id number] Result Time Unknown 2019-03-08 12:13:00 Test Item Value Reference Range Comments Unknown (test code = 2339-0) 312 mg/dL Unknown 70-100 F Ordering Physician UnknownLaboratory Ptyghbv8985-11-28 06:25:00Identifier 27252- 6 Result Time 2019-03-08 06:25:00Unknown Test Item Value Reference Range Comments Unknown (test code = 2951-2) 136 mmol/L Unknown 135-145 F Ordering Physician UnknownLaboratory Nclqsxh3329-20-22 06:25:00Identifier 58040- 6 Result Time 2019-03-08 06:25:00Unknown Test Item Value Reference Range Comments Unknown (test code = 2823-3) 3.7 mmol/L Unknown 3.5-5.0 F Ordering Physician UnknownLaboratory Rxxherl5189-36-68 06:25:00Identifier 01018- 6 Result Time 2019-03-08 06:25:00Unknown Test Item Value Reference Range Comments Unknown (test code = 2345-7) 175 mg/dL Unknown 70-100 F Ordering Physician UnknownLaboratory Bbtggjp6359-74-74 06:25:00Identifier 38617- 6 Result Time 2019-03-08 06:25:00Unknown Test Item Value Reference Range Comments Unknown (test code = 99924-3) 49.4 Unknown Unknown F Ordering Physician UnknownLaboratory Bjgyxpi6605-21-51 06:25:00Identifier 86200- 6 Result Time 2019-03-08 06:25:00Unknown Test Item Value Reference Range Comments Unknown (test code = NullTestCode) 59.8 Unknown Unknown F Ordering Physician UnknownLaboratory Bacawhz9969-40-64 06:25:00Identifier 68027- 6 Result Time 2019-03-08 06:25:00Unknown Test Item Value Reference Range Comments Unknown (test code = 2160-0) 1.42 mg/dL Unknown 0.67-1.17 F Ordering Physician UnknownLaboratory Dhwgfdn2907-27-46 06:25:00Identifier 89151- 6 Result Time 2019-03-08 06:25:00Unknown Test Item Value Reference Range Comments Unknown (test code = 2075-0) 97 mmol/L Unknown 101-111 F Ordering Physician UnknownLaboratory Dbsvjha9237-79-77 06:25:00Identifier 92315- 6 Result Time 2019-03-08 06:25:00Unknown Test Item Value Reference Range Comments Unknown (test code = 2028-9) 33 mmol/L Unknown 22-32 F Ordering Physician UnknownLaboratory Gyibjdp8196-12-39 06:25:00Identifier 04039- 6 Result Time 2019-03-08 06:25:00Unknown Test Item Value Reference Range Comments Unknown (test code = 88394-5) 9.6 mg/dL Unknown 8.6-10.3 F Ordering Physician UnknownLaboratory Pqnwfbg1350-63-25 06:25:00Identifier 65112- 6 Result Time 2019-03-08 06:25:00Unknown Test Item Value Reference Range Comments Unknown (test code = 3094-0) 28 mg/dL Unknown 6-24 F Ordering Physician UnknownLaboratory Xucozad6472-57-43 06:25:00Identifier 04137- 6 Result Time 2019-03-08 06:25:00Unknown Test Item Value Reference Range Comments Unknown (test code = 3097-3) 19.7 Unknown 8-20 F Ordering Physician UnknownLaboratory Knkpbiu3837-80-14 06:25:00Identifier 18076- 6 Result Time 2019-03-08 06:25:00Unknown Test Item Value Reference Range Comments Unknown (test code = 98433-1) 6 mmol/L Unknown 2-11 F Ordering Physician UnknownLaboratory Ciyyyhg3142-16-09 06:25:00Identifier 79608- 6 Result Time 2019-03-08 06:25:00Unknown Test Item Value Reference Range Comments Unknown (test code = 23064-9) 7.7 10^3/uL Unknown 3.5-10.8 F Ordering Physician UnknownLaboratory Whanmof5712-43-16 06:25:00Identifier 50153- 6 Result Time 2019-03-08 06:25:00Unknown Test Item Value Reference Range Comments Unknown (test code = 788-0) 15 % Unknown 10-15 F Ordering Physician UnknownLaboratory Sbwzvuq4040-29-78 06:25:00Identifier 19800- 6 Result Time 2019-03-08 06:25:00Unknown Test Item Value Reference Range Comments Unknown (test code = 789-8) 3.94 10^6 /uL Unknown 4.18-5.48 F Ordering Physician UnknownLaboratory Jjsaete4641-85-70 06:25:00Identifier 74566- 6 Result Time 2019-03-08 06:25:00Unknown Test Item Value Reference Range Comments Unknown (test code = 777-3) 164 10^3/uL Unknown 150-450 F Ordering Physician UnknownLaboratory Wwolxbx4665-14-99 06:25:00Identifier 22242- 6 Result Time 2019-03-08 06:25:00Unknown Test Item Value Reference Range Comments Unknown (test code = 74255-1) 7.8 fL Unknown 7.4-10.4 F Ordering Physician UnknownLaboratory Labjbrx7310-17-52 06:25:00Identifier 29178- 6 Result Time 2019-03-08 06:25:00Unknown Test Item Value Reference Range Comments Unknown (test code = 787-2) 81 fL Unknown 80-94 F Ordering Physician UnknownLaboratory Zgoesfj1712-58-49 06:25:00Identifier 37207- 6 Result Time 2019-03-08 06:25:00Unknown Test Item Value Reference Range Comments Unknown (test code = 786-4) 34 g/dL Unknown 31-36 F Ordering Physician UnknownLaboratory Tjvseeb4695-62-43 06:25:00Identifier 54604- 6 Result Time 2019-03-08 06:25:00Unknown Test Item Value Reference Range Comments Unknown (test code = 785-6) 27 pg Unknown 27-31 F Ordering Physician UnknownLaboratory Nlxwdkw0183-66-04 06:25:00Identifier 28271- 6 Result Time 2019-03-08 06:25:00Unknown Test Item Value Reference Range Comments Unknown (test code = 718-7) 10.8 g/dL Unknown 14.0-18.0 F Ordering Physician UnknownLaboratory Eceyubw0697-32-11 06:25:00Identifier 34233- 6 Result Time 2019-03-08 06:25:00Unknown Test Item Value Reference Range Comments Unknown (test code = 4544-3) 32 % Unknown 42-52 F Ordering Physician UnknownLaboratory Kezllev3438-28-51 06:45:00Identifier 47955- 6 Result Time 2019-03-06 06:45:00Unknown Test Item Value Reference Range Comments Unknown (test code = 2777-1) 3.3 mg/dL Unknown 2.5-5.0 F Ordering Physician UnknownLaboratory Rdvohgo5157-09-96 06:45:00Identifier 81824- 6 Result Time 2019-03-06 06:45:00Unknown Test Item Value Reference Range Comments Unknown (test code = 42106-4) 2.1 mg/dL Unknown 1.9-2.7 F Ordering Physician UnknownLaboratory Oqtipba3986-52-93 13:59:00Identifier 43778- 6 Result Time 2019-03-04 13:59:00Unknown Test Item Value Reference Range Comments Unknown (test code = NullTestCode) Unknown Unknown F Ordering Physician UnknownLaboratory Iblrhiy4039-97-31 13:59:00Identifier 93138- 6 Result Time 2019-03-04 13:59:00Unknown Test Item Value Reference Range Comments Unknown (test code = 3034-6) 203 mg/dL Unknown 203-362 F Ordering Physician UnknownLaboratory Qzqpbtd8779-93-41 13:59:00Identifier 56248- 6 Result Time 2019-03-04 13:59:00Unknown Test Item Value Reference Range Comments Unknown (test code = 2500-7) 284 mcg/dL Unknown 250-450 F Ordering Physician UnknownLaboratory Nzupsma7193-92-84 13:59:00Identifier 15787- 6 Result Time 2019-03-04 13:59:00Unknown Test Item Value Reference Range Comments Unknown (test code = NullTestCode) 13 % Unknown 15-55 F Ordering Physician UnknownLaboratory Ltgpuji2163-06-67 13:59:00Identifier 25701- 6 Result Time 2019-03-04 13:59:00Unknown Test Item Value Reference Range Comments Unknown (test code = 2498-4) 36 ug/dL Unknown 50-212 F Ordering Physician UnknownLaboratory Kmmdcpw1518-58-02 17:35:00Identifier 11530- 6 Result Time 2019-03-01 17:35:00Unknown Test Item Value Reference Range Comments Unknown (test code = 2132-9) 866 pg/mL Unknown 180-914 F Ordering Physician UnknownLaboratory Dhtfszw6164-65-98 17:35:00Identifier 67395- 6 Result Time 2019-03-01 17:35:00Unknown Test Item Value Reference Range Comments Unknown (test code = 3053-6) 51 ng/dL Unknown 87-178 F Ordering Physician UnknownLaboratory Fexoflk4264-94-38 17:35:00Identifier 45490- 6 Result Time 2019-03-01 17:35:00Unknown Test Item Value Reference Range Comments Unknown (test code = 3051-0) 3.10 pg/mL Unknown 2.5-3.9 F Ordering Physician UnknownLaboratory Rgoaizl7065-55-10 17:35:00Identifier 90796- 6 Result Time 2019-03-01 17:35:00Unknown Test Item Value Reference Range Comments Unknown (test code = 3024-7) 0.86 ng/dL Unknown 0.61-1.12 F Ordering Physician UnknownLaboratory Gdgtern6327-26-48 17:35:00Identifier 09566- 6 Result Time 2019-03-01 17:35:00Unknown Test Item Value Reference Range Comments Unknown (test code = 2157-6) 52 U/L Unknown 10-223 F Ordering Physician UnknownLaboratory Cuoclzc6117-32-25 17:35:00Identifier 33058- 6 Result Time 2019-03-01 17:35:00Unknown Test Item Value Reference Range Comments Unknown (test code = 47705-4) 41 mcmol/L Unknown 16-53 F Ordering Physician UnknownLaboratory Khmosec0931-11-47 16:21:00Identifier 28787- 6 Result Time 2019-03-01 16:21:00Unknown Test Item Value Reference Range Comments Unknown (test code = 08661-3) 0.10 ng/mL Unknown Unknown F Ordering Physician UnknownLaboratory Dopcvnc7279-91-06 05:20:00Identifier 14982- 6 Result Time 2019-03-01 05:20:00Unknown Test Item Value Reference Range Comments Unknown (test code = 06108-0) 0.0 Unknown Unknown F Ordering Physician UnknownLaboratory Zyawuxj6654-73-59 05:20:00Identifier 77188- 6 Result Time 2019-03-01 05:20:00Unknown Test Item Value Reference Range Comments Unknown (test code = 771-6) 0.0 10^3/ul Unknown Unknown F Ordering Physician UnknownLaboratory Gwvzsgz4080-43-37 05:20:00Identifier 79506- 6 Result Time 2019-03-01 05:20:00Unknown Test Item Value Reference Range Comments Unknown (test code = 770-8) 92.0 % Unknown Unknown F Ordering Physician UnknownLaboratory Obgxesp6229-44-14 05:20:00Identifier 20464- 6 Result Time 2019-03-01 05:20:00Unknown Test Item Value Reference Range Comments Unknown (test code = 5905-5) 1.8 % Unknown Unknown F Ordering Physician UnknownLaboratory Sdjvwza2647-64-23 05:20:00Identifier 02640- 6 Result Time 2019-03-01 05:20:00Unknown Test Item Value Reference Range Comments Unknown (test code = 736-9) 6.0 % Unknown Unknown F Ordering Physician UnknownLaboratory Cihhnsb6636-79-21 05:20:00Identifier 68019- 6 Result Time 2019-03-01 05:20:00Unknown Test Item Value Reference Range Comments Unknown (test code = 713-8) 0.0 % Unknown Unknown F Ordering Physician UnknownLaboratory Tjivrgb0662-03-20 05:20:00Identifier 90795- 6 Result Time 2019-03-01 05:20:00Unknown Test Item Value Reference Range Comments Unknown (test code = 706-2) 0.2 % Unknown Unknown F Ordering Physician UnknownLaboratory Lbebttm9601-86-62 05:20:00Identifier 29444- 6 Result Time 2019-03-01 05:20:00Unknown Test Item Value Reference Range Comments Unknown (test code = CSR3634) 7.0 10^3/ul Unknown 1.5-7.7 F Ordering Physician UnknownLaboratory Qpehtxz8303-28-98 05:20:00Identifier 83565- 6 Result Time 2019-03-01 05:20:00Unknown Test Item Value Reference Range Comments Unknown (test code = 742-7) 0.1 10^3/ul Unknown 0-0.8 F Ordering Physician UnknownLaboratory Spbqyuk0132-95-95 05:20:00Identifier 55190- 6 Result Time 2019-03-01 05:20:00Unknown Test Item Value Reference Range Comments Unknown (test code = 731-0) 0.5 10^3/ul Unknown 1.0-4.8 F Ordering Physician UnknownLaboratory Uzlhzek8610-28-10 05:20:00Identifier 00936- 6 Result Time 2019-03-01 05:20:00Unknown Test Item Value Reference Range Comments Unknown (test code = 711-2) 0.0 10^3/ul Unknown 0-0.6 F Ordering Physician UnknownLaboratory Aaborbx8194-12-75 05:20:00Identifier 85733- 6 Result Time 2019-03-01 05:20:00Unknown Test Item Value Reference Range Comments Unknown (test code = 704-7) 0.0 10^3/ul Unknown 0-0.2 F Ordering Physician UnknownLaboratory Yydgxpd2620-14-09 01:05:00Identifier 45842- 6 Result Time 2019-03-01 01:05:00Unknown Test Item Value Reference Range Comments Unknown (test code = 2744-1) 7.37 Unknown 7.35-7.45 F Ordering Physician UnknownLaboratory Ewccukg1133-14-49 01:05:00Identifier 38828- 6 Result Time 2019-03-01 01:05:00Unknown Test Item Value Reference Range Comments Unknown (test code = 22556-7) 211 mmHg Unknown 80-100 F Ordering Physician UnknownLaboratory Zmqlvuw0271-54-55 01:05:00Identifier 88078- 6 Result Time 2019-03-01 01:05:00Unknown Test Item Value Reference Range Comments Unknown (test code = NullTestCode) 51 mmHg Unknown 35-45 F Ordering Physician UnknownLaboratory Hgdgohq5444-96-40 01:05:00Identifier 32836- 6 Result Time 2019-03-01 01:05:00Unknown Test Item Value Reference Range Comments Unknown (test code = 2708-6) 99.9 % Unknown 94.0-98.0 F Ordering Physician UnknownLaboratory Giroiww1422-30-64 01:05:00Identifier 28912- 6 Result Time 2019-03-01 01:05:00Unknown Test Item Value Reference Range Comments Unknown (test code = 1960-4) 27.4 mmol/L Unknown 19-31 F Ordering Physician UnknownLaboratory Prweadr0379-82-69 01:05:00Identifier 17958- 6 Result Time 2019-03-01 01:05:00Unknown Test Item Value Reference Range Comments Unknown (test code = 1925-7) 3.1 mmol/L Unknown -2.0-2.0 F Ordering Physician UnknownLaboratory Klcrgxv2775-00-50 01:05:00Identifier 97704- 6 Result Time 2019-03-01 01:05:00Unknown Test Item Value Reference Range Comments Unknown (test code = NullTestCode) 80 Unknown Unknown F Ordering Physician UnknownLaboratory Dprewhs9113-05-98 01:05:00Identifier 81240- 6 Result Time 2019-03-01 01:05:00Unknown Test Item Value Reference Range Comments Unknown (test code = NullTestCode) 500 Unknown Unknown F Ordering Physician UnknownLaboratory Vfvzprz4665-48-41 01:05:00Identifier 51539- 6 Result Time 2019-03-01 01:05:00Unknown Test Item Value Reference Range Comments Unknown (test code = NullTestCode) 15 Unknown Unknown F Ordering Physician UnknownLaboratory Epunwhh8921-09-17 01:05:00Identifier 49773- 6 Result Time 2019-03-01 01:05:00Unknown Test Item Value Reference Range Comments Unknown (test code = NullTestCode) 5 Unknown Unknown F Ordering Physician UnknownLaboratory Vvrbuge4617-19-33 20:56:00Identifier 81073- 6 Result Time 2019-02-28 20:56:00Unknown Test Item Value Reference Range Comments Unknown (test code = 3016-3) 1.25 mcIU/mL Unknown 0.34-5.60 F Ordering Physician UnknownLaboratory Wgkckru1775-92-51 20:56:00Identifier 35081- 6 Result Time 2019-02-28 20:56:00Unknown Test Item Value Reference Range Comments Unknown (test code = 2885-2) 7.0 g/dL Unknown 6.4-8.9 F Ordering Physician UnknownLaboratory Pxfnauk8752-26-69 20:56:00Identifier 89037- 6 Result Time 2019-02-28 20:56:00Unknown Test Item Value Reference Range Comments Unknown (test code = 1975-2) 0.50 mg/dL Unknown 0.2-1.0 F Ordering Physician UnknownLaboratory Odypjtd0075-12-53 20:56:00Identifier 24233- 6 Result Time 2019-02-28 20:56:00Unknown Test Item Value Reference Range Comments Unknown (test code = NullTestCode) 3.4 g/dL Unknown 2-4 F Ordering Physician UnknownLaboratory Mrwblev6943-45-01 20:56:00Identifier 35911- 6 Result Time 2019-02-28 20:56:00Unknown Test Item Value Reference Range Comments Unknown (test code = 1988-5) 64.61 mg/L Unknown 0-8.00 F Ordering Physician UnknownLaboratory Yovpows2464-97-39 20:56:00Identifier 34373- 6 Result Time 2019-02-28 20:56:00Unknown Test Item Value Reference Range Comments Unknown (test code = 1920-8) 16 U/L Unknown 13-39 F Ordering Physician UnknownLaboratory Gedefbo2178-41-46 20:56:00Identifier 69994- 6 Result Time 2019-02-28 20:56:00Unknown Test Item Value Reference Range Comments Unknown (test code = 6768-6) 60 U/L Unknown 34-104 F Ordering Physician UnknownLaboratory Bkwrgjl4901-86-64 20:56:00Identifier 37583- 6 Result Time 2019-02-28 20:56:00Unknown Test Item Value Reference Range Comments Unknown (test code = 1759-0) 1.1 Unknown 1-3 F Ordering Physician UnknownLaboratory Jkvoawu6455-45-63 20:56:00Identifier 72734- 6 Result Time 2019-02-28 20:56:00Unknown Test Item Value Reference Range Comments Unknown (test code = 41645-4) 3.6 g/dL Unknown 3.2-5.2 F Ordering Physician UnknownLaboratory Ehsuowi1007-77-36 20:56:00Identifier 98449- 6 Result Time 2019-02-28 20:56:00Unknown Test Item Value Reference Range Comments Unknown (test code = 1742-6) 11 U/L Unknown 7-52 F Ordering Physician UnknownLaboratory Xujzvxo9919-64-88 20:56:00Identifier 43330- 6 Result Time 2019-02-28 20:56:00Unknown Test Item Value Reference Range Comments Unknown (test code = 48013-3) 224 pg/mL Unknown Unknown F Ordering Physician UnknownLaboratory Mdzvggb1346-92-76 20:56:00Identifier 47711- 6 Result Time 2019-02-28 20:56:00Unknown Test Item Value Reference Range Comments Unknown (test code = 2524-7) 1.4 mmol/L Unknown 0.5-2.0 F Ordering Physician UnknownLaboratory Powczxt3221-66-58 20:56:00Identifier 07531- 6 Result Time 2019-02-28 20:56:00Unknown Test Item Value Reference Range Comments Unknown (test code = 10192-5) 1.12 Unknown 0.82-1.09 F Ordering Physician UnknownLaboratory Pjldtai2183-88-57 20:56:00Identifier 12758- 6 Result Time 2019-02-28 20:56:00Unknown Test Item Value Reference Range Comments Unknown (test code = 98978-7) 36.2 seconds Unknown 26.0-38.0 F Ordering Physician UnknownLaboratory Ylshoxd1951-30-93 20:49:00Identifier 66847- 6 Result Time 2019-02-28 20:49:00Unknown Test Item Value Reference Range Comments Unknown (test code = NullTestCode) 6.0 Unknown 5-9 F Ordering Physician UnknownLaboratory Hctcqac8463-62-67 20:49:00Identifier 55539- 6 Result Time 2019-02-28 20:49:00Unknown Test Item Value Reference Range Comments Unknown (test code = 90198-2) 1.008 Unknown 1.010-1.030 F Ordering Physician UnknownLaboratory Oounwgx6343-19-39 17:41:00Identifier 46262- 6 Result Time 2019-02-28 17:41:00Unknown Test Item Value Reference Range Comments Unknown (test code = 2746-6) 7.38 Unknown 7.32-7.43 F Ordering Physician UnknownLaboratory Pvjsnpl3284-78-39 17:41:00Identifier 06237- 6 Result Time 2019-02-28 17:41:00Unknown Test Item Value Reference Range Comments Unknown (test code = 2705-2) 51.0 mmHg Unknown 35-45 F Ordering Physician UnknownLaboratory Suscyuc5774-47-60 17:41:00Identifier 06792- 6 Result Time 2019-02-28 17:41:00Unknown Test Item Value Reference Range Comments Unknown (test code = 2021-4) 61 mmHg Unknown 41-51 F Ordering Physician UnknownLaboratory Rpwweuu3423-17-44 17:41:00Identifier 99596- 6 Result Time 2019-02-28 17:41:00Unknown Test Item Value Reference Range Comments Unknown (test code = 05682-9) 86.2 % Unknown 70-80 F Ordering Physician UnknownLaboratory Tzsqdgh5184-09-00 17:41:00Identifier 44995- 6 Result Time 2019-02-28 17:41:00Unknown Test Item Value Reference Range Comments Unknown (test code = NullTestCode) 31.3 mmol/L Unknown 24-28 F Ordering Physician UnknownLaboratory Salywmw6772-00-90 17:41:00Identifier 61370- 6 Result Time 2019-02-28 17:41:00Unknown Test Item Value Reference Range Comments Unknown (test code = NullTestCode) 8.7 mmol/L Unknown 0.0-4.0 F Ordering Physician UnknownLaboratory Noagzho0114-15-82 08:40:00Identifier 99540- 6 Result Time 2019-02-10 08:40:00Unknown Test Item Value Reference Range Comments Unknown (test code = 4537-7) 68 mm/Hr Unknown 0-19 F Ordering Physician Unknown
--- OUTSIDE RECORDS SUMMARY | 2019-06-21 08:18 | XMS REPORT | Continuity of Care Document ---
:1950 External Reference #:[id number] Author Name Emmanuel Rosenthal M.D. 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 Onset: 05/03/2011 Rheumatoid arthritis Rufino Varela M.D. Onset: 07/16/2013 Pneumonia Rufino Varela M.D. Onset: 07/16/2013 Sepsis Rufino Varela M.D. Onset: 07/16/2013 Acute osteomyelitis Rufino Varela M.D. Onset: 07/16/2013 Pulmonary emphysema Rufino Varela M.D. Onset: 07/16/2013 Type 2 diabetes mellitus Rufino Varela M.D. Onset: 07/16/2013 Medications Care Home (Current) Use Rufino Varela M.D. Onset: 07/16/2013 Encounter Coronary arteriosclerosis Otoniel Agustin M.D. Onset: 08/30/2013 Mobitz type II atrioventricular block Otoniel Agustin M.D. Onset: 2013 Preoperative cardiovascular examination Otoniel Agustin M.D. Onset: 2013 Congestive heart failure Otoniel Agustin M.D. Onset: 10/25/2013 Electrocardiogram abnormal Otoniel Agustin M.D. Onset: 10/25/2013 Arteriosclerosis of autologous vein coronary Otoniel Agustin M.D. Onset: artery bypass graft Arteriosclerosis of coronary artery bypass Otoniel Agustin M.D. Onset: 07/2015 graft Chronic osteomyelitis of ankle and/or foot George Arce M.D. Onset: 2015 Peripheral vascular disease Norman Marie M.D. Onset: 01/11/2018 Social History Type Date Description Comments Sex Unknown Tobacco Use Start: Unknown End: Former Cigarette Smoker Unknown Smoking Status Reviewed: 05/29/19 Former Cigarette Smoker ETOH Use Denies alcohol use Tobacco Use Start: Unknown End: Patient is a former quit in 1995 Unknown smoker Recreational Drug Use Denies Drug Use Exercise Type/Frequency Exercises regularly Physical therapy twice weekly Allergies, Adverse Reactions, Alerts Active Allergies Reaction Severity Comments Date Lisinopril Hyperkalemia 11/29/2014 Metoprolol Known bradycardia 2nd degr 11/29/2014 HB Sulfa Antibiotics 04/03/2015 Bactrim 04/03/2015 Minocycline Difficulty breathing Severe Increase effects of 05/02/2019 opioids Inactive Allergies NKDA 07/16/2013 Medications Active Medications SIG Qnty Indications Ordering Date Provider Lidoderm 1 apply to affected 30units Emmanuel Rosenthal, 10/18/2018 5% Patches area 12 hours on, M.D. 12 hours off Voltaren apply 2 grams twice 200units Emmanuel Rosenthal, 05/17/2018 1% Gel daily as needed for M.D. pain to the hands as needed for pain Oxycontin take 1 by mouth 14tabs Devante, 11/21/2017 10mg Tab twice daily BAILEY Justin ER 12H Abuse-Det Doxycycline Hyclate Take 1 Capsule 180caps Emmanuel Rosenthal, 11/27/2015 Twice A Day M.D. 100mg Capsules Oxycodone HCL 1 cap po qid 60caps George Arce, 08/26/2015 5mg M.D. Capsules Spiriva Handihaler 1 unit inhalation Unknown daily 18mcg Capsules Symbicort 2 puff inhaled once Unknown Unsure a day Aerosol Celebrex take one 90caps Emmanuel Rosenthal, 200mg capsule/tablet M.D. Capsules daily by mouth as needed for pain Sertraline HCL Take One Tablet By Unknown 25mg Mouth Every Day Am Tablets Pioglitazone HCL 1 tablet po daily Deonte Masters, Am 15mg Tablets Omeprazole 1 by mouth every Unknown 20mg day Capsules DR De Diosrone HCL two daily prn ( Unknown 10mg Last taken September) Furosemide 1 and 1/2 tablet po 30tabs Deonte Masters, 40mg daily ( 60 mg total MD Tablets in the Am) Levalbuterol HCL 2 puffs as needed [facility], [place], BEVERAGE DISTILLER-C 1.25mg/3ML Nebulizer Lyrica 1 by mouth three Unknown 50mg times a day Capsules Oxygen Concentrator 2 L via nasal Unknown cannula continuously Montelukast Sodium 1 by mouth every Unknown day 10mg Tablets Xopenex use one dose Unknown 1.25mg/3ML inhaled 3x daily Nebulizer for sob Vitamin D-3 1 by mouth every Unknown day 1000Unit Capsules Aspirin 1 by mouth every Unknown 81mg day Tablets Lantus Solostar 30-35 units daily Unknown per sliding scale 100Unit/ML Solution at bedtime Pen-Inject Humalog 6 units w/ each Unknown 100Unit/ML meal, more as Solution needed Oxygen 2 L via nasal Unknown Misc cannula portable oxygen used continously Herrera Colon 1 by mouth every Unknown Health day Capsules Tylenol Arthritis 2 by mouth every 8 Unknown Pain hours as needed 650mg Tablets ER Magnesium Oxide 1 tab PO bid Unknown 400mg Capsules Flomax 1 by mouth every Unknown 0.4mg day Capsules Nitrostat one sl q5min up to 25tabs Otoniel D. 0.4mg 3 doses as needed Brand, M.D. Tablets Sub Multivitamins/Iron 1 capsule daily 30caps Unknown Capsules Simvastatin 1 po qd 30tabs Unknown 20mg Tablets Mirtazapine 1 po hs 30tabs Unknown 30mg Tablets History Medications Minocycline HCL take one capsule/tablet 60caps Emmanuel Rosenthal, 02/20/2019 - 100mg by mouth twice daily M.D. 03/09/2019 Capsules Immunizations CPT Code Status Date Vaccine Lot # [id number] Given 05/29/2019 Fluzone High Dose [id number] Vital Signs Date Vital Result Comment 05/29/2019 12:49pm Height 73 inches 6'1" Weight 260.00 lb per pt Heart Rate 84 /min BP Systolic Sitting 120 mmHg BP Diastolic Sitting 72 mmHg Respiratory Rate 14 /min Body Temperature 97.6 F Pain Level 7 BMI (Body Mass Index) 34.3 kg/m2 05/02/2019 10:31am Height 73 inches 6'1" Heart Rate 90 /min irregular, L. radial BP Systolic Sitting 122 mmHg Lue, reg cuff BP Diastolic Sitting 70 mmHg Lue, reg cuff O2 % BldC Oximetry 92 % on 2L NC Results Test Date Facility Test Result H/L Range Note Laboratory test 05/25/2019 [facility] Erythrocyte Sed 58 mm/Hr High 0-19 [address] [place] [address] [phone] C Reactive Protein 12.80 mg/L High <8.01 2 CBC Auto 05/25/2019 [facility] White Blood 6.8 10^3/uL Normal 3.5-10.[address] [place] [address] [phone] Red Blood Count 4.04 10^6/uL Low 4.18-5.48 Hemoglobin 10.6 g/dL Low 14.0-18.0 Hematocrit 33 % Low 42-52 Mean Corpuscular Volume 81 fL Normal 80-94 Mean Corpuscular Hemoglobin 26 pg Low 27-31 Mean Corpuscular HGB Conc 32 g/dL Normal 31-36 Red Cell Distribution Width 16 % High 10-15 Platelet Count 154 10^3/uL Normal 150-450 Mean Platelet Volume 7.4 fL Normal 7.4-10.4 Abs Neutrophils 5.0 10^3/uL Normal 1.5-7.7 Abs Lymphocytes 1.2 10^3/uL Normal 1.0-4.8 Abs Monocytes 0.4 10^3/uL Normal 0-0.8 Abs Eosinophils 0.2 10^3/uL Normal 0-0.6 Abs Basophils 0.1 10^3/uL Normal 0-0.2 Abs Nucleated RBC 0.0 10^3/uL Granulocyte % 72.9 % Lymphocyte % 17.0 % Monocyte % 5.9 % Eosinophil % 3.4 % Basophil % 0.8 % Nucleated Red Blood Cells % 0.3 Comp Metabolic 05/25/2019 [facility] Sodium 140 mmol/L Normal 135-[address] [place] [address] [phone] Potassium 4.8 mmol/L Normal 3.5-5.0 Chloride 99 mmol/L Low 101-111 Co2 Carbon Dioxide 36 mmol/L High 22-32 Anion Gap 5 mmol/L Normal 2-11 Glucose 126 mg/dL High 70-100 Blood Urea Nitrogen 39 mg/dL High 6-24 Creatinine 1.84 mg/dL High 0.67-1.17 BUN/Creatinine Ratio 21.2 High 8-20 Calcium 9.7 mg/dL Normal 8.6-10.3 Total Protein 7.0 g/dL Normal 6.4-8.9 Albumin 4.0 g/dL Normal 3.2-5.2 Globulin 3.0 g/dL Normal 2-4 Albumin/Globulin Ratio 1.3 Normal 1-3 Total Bilirubin 0.30 mg/dL Normal 0.2-1.0 Alkaline Phosphatase 57 U/L Normal 34-104 Alt 9 U/L Normal 7-52 Ast 14 U/L Normal 13-39 Egfr Non- 36.7 >60 Egfr 44.4 >60 3 Laboratory test 05/25/2019 [facility] Erythrocyte Sed 58 mm/Hr High 0-19 [address] [place] [address] [phone] C Reactive Protein 12.80 mg/L High <8.01 5 CBC Auto 05/25/2019 [facility] White Blood 6.8 10^3/uL Normal 3.5-10.[address] [place] [address] [phone] Red Blood Count 4.04 10^6/uL Low 4.18-5.48 Hemoglobin 10.6 g/dL Low 14.0-18.0 Hematocrit 33 % Low 42-52 Mean Corpuscular Volume 81 fL Normal 80-94 Mean Corpuscular Hemoglobin 26 pg Low 27-31 Mean Corpuscular HGB Conc 32 g/dL Normal 31-36 Red Cell Distribution Width 16 % High 10-15 Platelet Count 154 10^3/uL Normal 150-450 Mean Platelet Volume 7.4 fL Normal 7.4-10.4 Abs Neutrophils 5.0 10^3/uL Normal 1.5-7.7 Abs Lymphocytes 1.2 10^3/uL Normal 1.0-4.8 Abs Monocytes 0.4 10^3/uL Normal 0-0.8 Abs Eosinophils 0.2 10^3/uL Normal 0-0.6 Abs Basophils 0.1 10^3/uL Normal 0-0.2 Abs Nucleated RBC 0.0 10^3/uL Granulocyte % 72.9 % Lymphocyte % 17.0 % Monocyte % 5.9 % Eosinophil % 3.4 % Basophil % 0.8 % Nucleated Red Blood Cells % 0.3 Comp Metabolic 05/25/2019 [facility] Sodium 140 mmol/L Normal 135-[address] [place] [address] [phone] Potassium 4.8 mmol/L Normal 3.5-5.0 Chloride 99 mmol/L Low 101-111 Co2 Carbon Dioxide 36 mmol/L High 22-32 Anion Gap 5 mmol/L Normal 2-11 Glucose 126 mg/dL High 70-100 Blood Urea Nitrogen 39 mg/dL High 6-24 Creatinine 1.84 mg/dL High 0.67-1.17 BUN/Creatinine Ratio 21.2 High 8-20 Calcium 9.7 mg/dL Normal 8.6-10.3 Total Protein 7.0 g/dL Normal 6.4-8.9 Albumin 4.0 g/dL Normal 3.2-5.2 Globulin 3.0 g/dL Normal 2-4 Albumin/Globulin Ratio 1.3 Normal 1-3 Total Bilirubin 0.30 mg/dL Normal 0.2-1.0 Alkaline Phosphatase 57 U/L Normal 34-104 Alt 9 U/L Normal 7-52 Ast 14 U/L Normal 13-39 Egfr Non- 36.7 >60 Egfr 44.4 >60 6 Laboratory test 05/25/2019 [facility] PSA Diagnostic 0.654 Normal 0-4.[address] ng/[place] [address] [phone] Laboratory test 02/10/2019 [facility] Erythrocyte Sed 68 mm/Hr High 0-19 [address] [place] [address] [phone] C Reactive Protein 14.64 mg/L High <8.01 8 CBC Auto 02/10/2019 [facility] White Blood 5.8 10^3/uL Normal 3.5-10.[address] [place] [address] [phone] Red Blood Count 3.94 10^6/uL Low 4.18-5.48 Hemoglobin 10.8 g/dL Low 14.0-18.0 Hematocrit 32 % Low 42-52 Mean Corpuscular Volume 82 fL Normal 80-94 Mean Corpuscular Hemoglobin 28 pg Normal 27-31 Mean Corpuscular HGB Conc 34 g/dL Normal 31-36 Red Cell Distribution Width 14 % Normal 10-15 Platelet Count 165 10^3/uL Normal 150-450 Mean Platelet Volume 7.5 fL Normal 7.4-10.4 Abs Neutrophils 3.8 10^3/uL Normal 1.5-7.7 Abs Lymphocytes 1.4 10^3/uL Normal 1.0-4.8 Abs Monocytes 0.4 10^3/uL Normal 0-0.8 Abs Eosinophils 0.2 10^3/uL Normal 0-0.6 Abs Basophils 0.0 10^3/uL Normal 0-0.2 Abs Nucleated RBC 0.0 10^3/uL Granulocyte % 64.4 % Lymphocyte % 24.0 % Monocyte % 7.5 % Eosinophil % 3.5 % Basophil % 0.6 % Nucleated Red Blood Cells % 0.1 Comp Metabolic 02/10/2019 [facility] Sodium 139 mmol/L Normal 135-[address] [place] [address] [phone] Potassium 4.3 mmol/L Normal 3.5-5.0 Chloride 98 mmol/L Low 101-111 Co2 Carbon Dioxide 37 mmol/L High 22-32 Anion Gap 4 mmol/L Normal 2-11 Glucose 134 mg/dL High 70-100 Blood Urea Nitrogen 53 mg/dL High 6-24 Creatinine 1.60 mg/dL High 0.67-1.17 BUN/Creatinine Ratio 33.1 High 8-20 Calcium 10.3 mg/dL Normal 8.6-10.3 Total Protein 7.2 g/dL Normal 6.4-8.9 Albumin 3.9 g/dL Normal 3.2-5.2 Globulin 3.3 g/dL Normal 2-4 Albumin/Globulin Ratio 1.2 Normal 1-3 Total Bilirubin 0.40 mg/dL Normal 0.2-1.0 Alkaline Phosphatase 58 U/L Normal 34-104 Alt 9 U/L Normal 7-52 Ast 13 U/L Normal 13-39 Egfr Non- 43.2 >60 Egfr 52.3 >60 9 1 Please check labs 2 days before follow up 2 Please check labs 2 days before follow up 3 Because ethnic data is not always readily [...] 15-29 5 Kidney failure <15 (or dialysis) 4 Please check labs 2 days before follow up 5 Please check labs 2 days before follow up 6 Because ethnic data is not always readily [...] 15-29 5 Kidney failure <15 (or dialysis) 7 Please check 2 days before follow up 8 Please check 2 days before follow up 9 Because ethnic data is not always [...] 15-29 5 Kidney failure <15 (or dialysis) Procedures Date Code Description Status 01/17/2019 00269 Pace Maker Eval W/Iterative Adjment Dual Lead Completed 01/17/2019 44475 Pace Maker Eval W/Iterative Adjment Dual Lead Completed 02/08/2012 [id number] Colonoscopy Completed Medical Devices Description No Information Available Encounters Type Date Location Provider Dx Diagnosis Office Visit 05/02/2019 [facility] [place] I73.9 Peripheral vascular 10:15a Of Leah Marie M.D. disease, unspecified Office Visit 04/24/2019 Neurohospitalist Yasmani Gomez E11.42 Type 2 diabetes 10:30a Clinic [facility] mellitus with diabetic polyneuropathy R29.6 Repeated falls Office Visit 03/12/2019 9:00a Rheumatology Emmanuel Rosenthal, M05.79 [facility] Mancuso w venecia factor mult site w/o org/sys involv G62.9 Polyneuropathy, unspecified N18.9 Chronic kidney disease, unspecified R29.6 Repeated falls Office 03/08/2019 [facility] Donnie T40.2x1A Poisoning by oth Visit 11:58a [facility]oc[facility]ed [place] opioids, accidental Hospitalists (unintentional), init J96.91 Respiratory failure, unspecified with hypoxia R29.6 Repeated falls Office 03/07/2019 [facility] Donnie T40.2x1A Poisoning by oth Visit 11:58a [facility]oc[facility]ed [place] opioids, accidental Hospitalists (unintentional), init G89.29 Other chronic pain R53.1 Weakness R29.6 Repeated falls Office 03/06/2019 [facility] T40.2x1A Poisoning by oth Visit 11:57a Assoc,pc Amrik, [employer]EVERAGE [employer]ER opioids, accidental Hospitalists (unintentional), init E11.9 Type 2 diabetes mellitus without complications G89.29 Other chronic pain J44.9 Chronic obstructive pulmonary disease, unspecified I10 Essential (primary) hypertension Office 03/05/2019 [facility] T40.2x1A Poisoning by oth Visit 11:57a Assoc,pc Amrik, BEVERAGE DIST[employer] opioids, accidental Hospitalists (unintentional), init E11.9 Type 2 diabetes mellitus without complications J44.9 Chronic obstructive pulmonary disease, unspecified I10 Essential (primary) hypertension Office 03/04/2019 [facility] T40.2x1A Poisoning by oth Visit 11:57a Assoc,pc Amrik, BEVERAGE DIST[employer]ER opioids, accidental Hospitalists (unintentional), init G89.29 Other chronic pain E11.9 Type 2 diabetes mellitus without complications J44.9 Chronic obstructive pulmonary disease, unspecified Office 03/03/2019 [facility] T40.2x1A Poisoning by oth Visit 11:56a Assoc,pc Amrik, BEVERAGE DIST[employer]ER opioids, accidental Hospitalists (unintentional), init R29.6 Repeated falls G89.29 Other chronic pain E11.9 Type 2 diabetes mellitus without complications Office 03/02/2019 [facility] T40.2x1A Poisoning by oth Visit 11:56a Assoc,pc [facility] opioids, accidental Hospitalists LAURA Nascimento (unintentional), init R29.6 Repeated falls I10 Essential (primary) hypertension J44.9 Chronic obstructive pulmonary disease, unspecified Office Visit 03/01/2019 Neurohospitalist Yasmani Gomez R29.6 Repeated falls 7:00a Sandra Peres M.D. R40.0 Somnolence Office Visit 03/01/2019 11:54a Intensivists Pratik Rosas, J96.21 Acute and chronic MD respiratory failure with hypoxia G93.40 Encephalopathy, unspecified R53.1 Weakness R29.6 Repeated falls Office 02/28/2019 [facility] T40.2x1A Poisoning by oth Visit 11:54a Assoc,pc Johan D.Hilario. opioids, accidental Hospitalists (unintentional), init J96.90 Respiratory failure, unsp, unsp w hypoxia or hypercapnia R40.0 Somnolence R29.6 Repeated falls Office Visit 02/20/2019 1:00p Rheumatology Emmanuel Rosenthal, M05.79 [facility] [place] [facility] [place] org/sys involv G62.9 Polyneuropathy, unspecified D64.9 Anemia, unspecified N18.9 Chronic kidney disease, unspecified Office Visit 01/17/2019 Magdi Hogan I44.1 Atrioventricular 3:00p Cardiology Of Bartolome Agustin block, second degree [facility] Z95.0 Presence of cardiac pacemaker I25.10 Athscl heart disease of galena coronary artery w/o ang pctrs Assessments Date Code Description Provider 05/29/2019 M05.79 Rheumatoid arthritis with rheumatoid Emmanuel Rosenthal M.D. factor of multiple site 05/29/2019 G62.9 Polyneuropathy, unspecified Emmanuel Rosenthal M.D. 05/29/2019 N18.9 Chronic kidney disease, unspecified Emmanuel Rosenthal M.D. 05/29/2019 G89.29 Other chronic pain Emmanuel Rosenthal M.D. 05/02/2019 I73.9 Peripheral vascular disease, Norman Marie M.D. unspecified 04/24/2019 E11.42 Type 2 diabetes mellitus with diabetic Yasmani Peres M.D. polyneuropathy 04/24/2019 R29.6 Repeated falls Yasmani Peres M.D. 03/12/2019 M05.79 Rheumatoid arthritis with rheumatoid Emmanuel Rosenthal M.D. factor of multiple site 03/12/2019 G62.9 Polyneuropathy, unspecified Emmanuel Rosenthal M.D. 03/12/2019 N18.9 Chronic kidney disease, unspecified Emmanuel Rosenthal M.D. 03/12/2019 R29.6 Repeated falls Emmanuel Rosenthal M.D. 03/08/2019 T40.2x1A Poisoning by other opioids, accidental ESTRELLA Almodovar (unintentional), initial encounter 03/08/2019 J96.91 Respiratory failure, unspecified with ESTRELLA Almodovar hypoxia 03/08/2019 R29.6 Repeated falls ESTRELLA Almodovar 03/07/2019 T40.2x1A Poisoning by other opioids, accidental ESTRELLA Almodovar (unintentional), initial encounter 03/07/2019 G89.29 Other chronic pain ESTRELLA Almodovar 03/07/2019 R53.1 Weakness ESTRELLA Almodovar 03/07/2019 R29.6 Repeated falls ESTRELLA Almodovar 03/06/2019 T40.2x1A Poisoning by other opioids, accidental Marylou Amrik, [employer]EVERAGE [employer] (unintentional), initial encounter 03/06/2019 E11.9 Type 2 diabetes mellitus without Marylou Amrik, [employer] complications 03/06/2019 G89.29 Other chronic pain Marylou Amrik, BEVERAGE [employer]ER 03/06/2019 J44.9 Chronic obstructive pulmonary disease, Marylou Amrik, BEVERAGE [employer] unspecified 03/06/2019 I10 Essential (primary) hypertension Marylou Amrik, [employer]EVERAGE [employer]ER 03/05/2019 T40.2x1A Poisoning by other opioids, accidental Marylou Amrik, BEVERAGE DIST[employer]ER (unintentional), initial encounter 03/05/2019 E11.9 Type 2 diabetes mellitus without Marylou Amrik, BEVERAGE [employer] complications 03/05/2019 J44.9 Chronic obstructive pulmonary disease, Marylou Amrik, BEVERAGE [employer]ER unspecified 03/05/2019 I10 Essential (primary) hypertension Marylou Amrik, BEVERAGE [employer]ER 03/04/2019 T40.2x1A Poisoning by other opioids, accidental Marylou Amrik, BEVERAGE DISTILLER (unintentional), initial encounter 03/04/2019 G89.29 Other chronic pain Marylou Amrik, BEVERAGE DIST[employer]ER 03/04/2019 E11.9 Type 2 diabetes mellitus without Marylou Amrik, BEVERAGE [employer]ER complications 03/04/2019 J44.9 Chronic obstructive pulmonary disease, Marylou Amrik, BEVERAGE DIST[employer]ER unspecified 03/03/2019 T40.2x1A Poisoning by other opioids, accidental Marylou Amrik, BEVERAGE DISTILLER (unintentional), initial encounter 03/03/2019 R29.6 Repeated falls Marylou Amrik, BEVERAGE DISTILLER 03/03/2019 G89.29 Other chronic pain Marylou Amrik, BEVERAGE DIST[employer]ER 03/03/2019 E11.9 Type 2 diabetes mellitus without Marylou Amrik, BEVERAGE [employer]ER complications 03/02/2019 T40.2x1A Poisoning by other opioids, accidental Meg Nascimento, LAURA (unintentional), initial encounter 03/02/2019 R29.6 Repeated falls Meg Nascimento, BEVERAGE DIST[employer]ER 03/02/2019 I10 Essential (primary) hypertension Meg Nascimento, BEVERAGE DIST[employer]ER 03/02/2019 J44.9 Chronic obstructive pulmonary disease, Meg Nascimento, BEVERAGE DIST[employer]ER unspecified 03/01/2019 R29.6 Repeated falls Yasmani Peres M.D. 03/01/2019 J96.21 Acute and chronic respiratory failure Pratik Rosas MD with hypoxia 03/01/2019 R40.0 Somnolence Yasmani Peres M.D. 03/01/2019 G93.40 Encephalopathy, unspecified Pratik Rosas MD 03/01/2019 R53.1 Weakness Pratik Rosas MD 03/01/2019 R29.6 Repeated falls Pratik Rosas MD 02/28/2019 T40.2x1A Poisoning by other opioids, accidental Nathalie Johan, D.O. (unintentional), initial encounter 02/28/2019 J96.90 Respiratory failure, unspecified, Nathalie Johan, D.O. unspecified whether with hypoxia or hypercapnia 02/28/2019 R40.0 Somnolence Nathalie Johan, D.O. 02/28/2019 R29.6 Repeated falls Nathalie Johan, D.O. 02/20/2019 M05.79 Rheumatoid arthritis with rheumatoid Emmanuel Rosenthal M.D. factor of multiple site 02/20/2019 G62.9 Polyneuropathy, unspecified Emmanuel Rosenthal M.D. 02/20/2019 D64.9 Anemia, unspecified Emmanuel Rosenthal M.D. 02/20/2019 N18.9 Chronic kidney disease, unspecified Emmanuel Rosenthal M.D. 01/17/2019 I44.1 Atrioventricular block, second degree Otoniel Agustin M.D. 01/17/2019 I44.1 Atrioventricular block, second degree Ica Pacer Schedule 01/17/2019 Z95.0 Presence of cardiac pacemaker Otoniel Agustin M.D. 01/17/2019 Z95.0 Presence of cardiac pacemaker Otoniel Agustin M.D. 01/17/2019 Z95.0 Presence of cardiac pacemaker Ica Pacer Schedule 01/17/2019 I25.10 Atherosclerotic heart disease of gal[place] Otoniel Agustin M.D. coronary artery with Plan of Treatment Future Appointment(s):10/30/2019 1:00 pm - Emmanuel Rosenthal M.D. at [facility]07/11/2019 2:30 pm - Otoniel Agustin M.D. at [facility]07/11/2019 2:00 pm - Ica Pacer Schedule at [facility]05/02/2019 - Norman Marie M.D.I73.9 Peripheral vascular disease, unspecifiedComments:The following was discussed with Emmanuel and his Josselyn at the time of clinic visit:The left plantar foot wound identified on prior clinic visits has healed and remain healed. There are no new wounds to indicate critical limb ischemia. Although the ABIs remain abnormal and consistent with claudication, the patient does not experience any symptoms and therefore currently no intervention is indicated.As discussed with the patient and his , when and if the patient develops poorly healing chronic wounds again the possibility of angiography will be considered.Follow up:The patient will be scheduled for routine follow-up May 2020 to be preceded by JUAREZ. Functional Status Description No Information Available Mental Status Description No Information Available Referrals Description No Information Available
--- OUTSIDE RECORDS SUMMARY | 2019-06-21 08:18 | XMS REPORT ---
:1950 Author Organization [facility] Care Team Providers Name Role Phone Unavailable [...] Result Comments Laboratory Studies 2019-03-08 12:13:00 Identifier [id number] Result Time Unknown 2019-03-08 12:13:00 Test Item Value Reference Range Comments Unknown (test code = 2339-0) 312 mg/dL Unknown 70-100 F Ordering Physician UnknownLaboratory Atfqvyb5223-28-58 06:25:00Identifier 69675- 6 Result Time 2019-03-08 06:25:00Unknown Test Item Value Reference Range Comments Unknown (test code = 2951-2) 136 mmol/L Unknown 135-145 F Ordering Physician UnknownLaboratory Bxeewyg2585-95-96 06:25:00Identifier 87197- 6 Result Time 2019-03-08 06:25:00Unknown Test Item Value Reference Range Comments Unknown (test code = 2823-3) 3.7 mmol/L Unknown 3.5-5.0 F Ordering Physician UnknownLaboratory Subfvka2401-88-38 06:25:00Identifier 65391- 6 Result Time 2019-03-08 06:25:00Unknown Test Item Value Reference Range Comments Unknown (test code = 2345-7) 175 mg/dL Unknown 70-100 F Ordering Physician UnknownLaboratory Aptdjok4078-78-97 06:25:00Identifier 19882- 6 Result Time 2019-03-08 06:25:00Unknown Test Item Value Reference Range Comments Unknown (test code = 50884-4) 49.4 Unknown Unknown F Ordering Physician UnknownLaboratory Rkyuadc8792-52-33 06:25:00Identifier 52943- 6 Result Time 2019-03-08 06:25:00Unknown Test Item Value Reference Range Comments Unknown (test code = NullTestCode) 59.8 Unknown Unknown F Ordering Physician UnknownLaboratory Tfigcao2045-31-82 06:25:00Identifier 22956- 6 Result Time 2019-03-08 06:25:00Unknown Test Item Value Reference Range Comments Unknown (test code = 2160-0) 1.42 mg/dL Unknown 0.67-1.17 F Ordering Physician UnknownLaboratory Avjnnga9969-07-09 06:25:00Identifier 20540- 6 Result Time 2019-03-08 06:25:00Unknown Test Item Value Reference Range Comments Unknown (test code = 2075-0) 97 mmol/L Unknown 101-111 F Ordering Physician UnknownLaboratory Gegpsrw0662-28-85 06:25:00Identifier 76955- 6 Result Time 2019-03-08 06:25:00Unknown Test Item Value Reference Range Comments Unknown (test code = 2028-9) 33 mmol/L Unknown 22-32 F Ordering Physician UnknownLaboratory Efwhztg6262-49-83 06:25:00Identifier 36026- 6 Result Time 2019-03-08 06:25:00Unknown Test Item Value Reference Range Comments Unknown (test code = 84777-5) 9.6 mg/dL Unknown 8.6-10.3 F Ordering Physician UnknownLaboratory Ovzglvw4002-83-70 06:25:00Identifier 39244- 6 Result Time 2019-03-08 06:25:00Unknown Test Item Value Reference Range Comments Unknown (test code = 3094-0) 28 mg/dL Unknown 6-24 F Ordering Physician UnknownLaboratory Nktscee5323-25-08 06:25:00Identifier 95486- 6 Result Time 2019-03-08 06:25:00Unknown Test Item Value Reference Range Comments Unknown (test code = 3097-3) 19.7 Unknown 8-20 F Ordering Physician UnknownLaboratory Exjwaxo8446-94-69 06:25:00Identifier 32681- 6 Result Time 2019-03-08 06:25:00Unknown Test Item Value Reference Range Comments Unknown (test code = 84681-5) 6 mmol/L Unknown 2-11 F Ordering Physician UnknownLaboratory Qwhtxqh1181-60-21 06:25:00Identifier 28949- 6 Result Time 2019-03-08 06:25:00Unknown Test Item Value Reference Range Comments Unknown (test code = 04177-0) 7.7 10^3/uL Unknown 3.5-10.8 F Ordering Physician UnknownLaboratory Lhgiptd1346-14-89 06:25:00Identifier 06973- 6 Result Time 2019-03-08 06:25:00Unknown Test Item Value Reference Range Comments Unknown (test code = 788-0) 15 % Unknown 10-15 F Ordering Physician UnknownLaboratory Yqblgmt0223-49-82 06:25:00Identifier 16913- 6 Result Time 2019-03-08 06:25:00Unknown Test Item Value Reference Range Comments Unknown (test code = 789-8) 3.94 10^6 /uL Unknown 4.18-5.48 F Ordering Physician UnknownLaboratory Vqsxydu8180-27-18 06:25:00Identifier 42310- 6 Result Time 2019-03-08 06:25:00Unknown Test Item Value Reference Range Comments Unknown (test code = 777-3) 164 10^3/uL Unknown 150-450 F Ordering Physician UnknownLaboratory Echzzur4127-81-79 06:25:00Identifier 23000- 6 Result Time 2019-03-08 06:25:00Unknown Test Item Value Reference Range Comments Unknown (test code = 93783-0) 7.8 fL Unknown 7.4-10.4 F Ordering Physician UnknownLaboratory Nykqium8530-76-80 06:25:00Identifier 54309- 6 Result Time 2019-03-08 06:25:00Unknown Test Item Value Reference Range Comments Unknown (test code = 787-2) 81 fL Unknown 80-94 F Ordering Physician UnknownLaboratory Kstqjus6840-81-66 06:25:00Identifier 29498- 6 Result Time 2019-03-08 06:25:00Unknown Test Item Value Reference Range Comments Unknown (test code = 786-4) 34 g/dL Unknown 31-36 F Ordering Physician UnknownLaboratory Gtcotzn4881-43-72 06:25:00Identifier 87074- 6 Result Time 2019-03-08 06:25:00Unknown Test Item Value Reference Range Comments Unknown (test code = 785-6) 27 pg Unknown 27-31 F Ordering Physician UnknownLaboratory Ffrdwsz3278-83-64 06:25:00Identifier 70555- 6 Result Time 2019-03-08 06:25:00Unknown Test Item Value Reference Range Comments Unknown (test code = 718-7) 10.8 g/dL Unknown 14.0-18.0 F Ordering Physician UnknownLaboratory Lawzbmk2005-17-32 06:25:00Identifier 29074- 6 Result Time 2019-03-08 06:25:00Unknown Test Item Value Reference Range Comments Unknown (test code = 4544-3) 32 % Unknown 42-52 F Ordering Physician UnknownLaboratory Ncqsiyg1083-85-00 06:45:00Identifier 05724- 6 Result Time 2019-03-06 06:45:00Unknown Test Item Value Reference Range Comments Unknown (test code = 2777-1) 3.3 mg/dL Unknown 2.5-5.0 F Ordering Physician UnknownLaboratory Ozprpyd5382-24-31 06:45:00Identifier 48912- 6 Result Time 2019-03-06 06:45:00Unknown Test Item Value Reference Range Comments Unknown (test code = 97724-3) 2.1 mg/dL Unknown 1.9-2.7 F Ordering Physician UnknownLaboratory Wxfezvl0262-35-22 13:59:00Identifier 56558- 6 Result Time 2019-03-04 13:59:00Unknown Test Item Value Reference Range Comments Unknown (test code = NullTestCode) Unknown Unknown F Ordering Physician UnknownLaboratory Cfzvapy6579-03-11 13:59:00Identifier 13190- 6 Result Time 2019-03-04 13:59:00Unknown Test Item Value Reference Range Comments Unknown (test code = 3034-6) 203 mg/dL Unknown 203-362 F Ordering Physician UnknownLaboratory Dcnmbsc4651-50-27 13:59:00Identifier 53228- 6 Result Time 2019-03-04 13:59:00Unknown Test Item Value Reference Range Comments Unknown (test code = 2500-7) 284 mcg/dL Unknown 250-450 F Ordering Physician UnknownLaboratory Eapgwek1385-81-36 13:59:00Identifier 09436- 6 Result Time 2019-03-04 13:59:00Unknown Test Item Value Reference Range Comments Unknown (test code = NullTestCode) 13 % Unknown 15-55 F Ordering Physician UnknownLaboratory Wimgcwx2510-83-18 13:59:00Identifier 76836- 6 Result Time 2019-03-04 13:59:00Unknown Test Item Value Reference Range Comments Unknown (test code = 2498-4) 36 ug/dL Unknown 50-212 F Ordering Physician UnknownLaboratory Ublkqsi1164-57-90 17:35:00Identifier 85938- 6 Result Time 2019-03-01 17:35:00Unknown Test Item Value Reference Range Comments Unknown (test code = 2132-9) 866 pg/mL Unknown 180-914 F Ordering Physician UnknownLaboratory Vbpxhpp5219-24-94 17:35:00Identifier 66443- 6 Result Time 2019-03-01 17:35:00Unknown Test Item Value Reference Range Comments Unknown (test code = 3053-6) 51 ng/dL Unknown 87-178 F Ordering Physician UnknownLaboratory Hhytuyq2409-83-86 17:35:00Identifier 93776- 6 Result Time 2019-03-01 17:35:00Unknown Test Item Value Reference Range Comments Unknown (test code = 3051-0) 3.10 pg/mL Unknown 2.5-3.9 F Ordering Physician UnknownLaboratory Ynyyhkr5978-72-15 17:35:00Identifier 12740- 6 Result Time 2019-03-01 17:35:00Unknown Test Item Value Reference Range Comments Unknown (test code = 3024-7) 0.86 ng/dL Unknown 0.61-1.12 F Ordering Physician UnknownLaboratory Jdccebm4431-29-67 17:35:00Identifier 36499- 6 Result Time 2019-03-01 17:35:00Unknown Test Item Value Reference Range Comments Unknown (test code = 2157-6) 52 U/L Unknown 10-223 F Ordering Physician UnknownLaboratory Fopczkr2396-94-43 17:35:00Identifier 76227- 6 Result Time 2019-03-01 17:35:00Unknown Test Item Value Reference Range Comments Unknown (test code = 24913-2) 41 mcmol/L Unknown 16-53 F Ordering Physician UnknownLaboratory Xqygkwy8933-43-87 16:21:00Identifier 48369- 6 Result Time 2019-03-01 16:21:00Unknown Test Item Value Reference Range Comments Unknown (test code = 91695-2) 0.10 ng/mL Unknown Unknown F Ordering Physician UnknownLaboratory Ejflsuq7570-88-49 05:20:00Identifier 25833- 6 Result Time 2019-03-01 05:20:00Unknown Test Item Value Reference Range Comments Unknown (test code = 14631-6) 0.0 Unknown Unknown F Ordering Physician UnknownLaboratory Vguaekc0088-69-41 05:20:00Identifier 49182- 6 Result Time 2019-03-01 05:20:00Unknown Test Item Value Reference Range Comments Unknown (test code = 771-6) 0.0 10^3/ul Unknown Unknown F Ordering Physician UnknownLaboratory Iepoxke3233-15-94 05:20:00Identifier 67420- 6 Result Time 2019-03-01 05:20:00Unknown Test Item Value Reference Range Comments Unknown (test code = 770-8) 92.0 % Unknown Unknown F Ordering Physician UnknownLaboratory Irdlsrw8997-28-73 05:20:00Identifier 34243- 6 Result Time 2019-03-01 05:20:00Unknown Test Item Value Reference Range Comments Unknown (test code = 5905-5) 1.8 % Unknown Unknown F Ordering Physician UnknownLaboratory Kbgncaq6970-65-82 05:20:00Identifier 86369- 6 Result Time 2019-03-01 05:20:00Unknown Test Item Value Reference Range Comments Unknown (test code = 736-9) 6.0 % Unknown Unknown F Ordering Physician UnknownLaboratory Uoilpcb7883-00-36 05:20:00Identifier 09132- 6 Result Time 2019-03-01 05:20:00Unknown Test Item Value Reference Range Comments Unknown (test code = 713-8) 0.0 % Unknown Unknown F Ordering Physician UnknownLaboratory Sccsllx0266-38-18 05:20:00Identifier 51713- 6 Result Time 2019-03-01 05:20:00Unknown Test Item Value Reference Range Comments Unknown (test code = 706-2) 0.2 % Unknown Unknown F Ordering Physician UnknownLaboratory Mwxiwtw0709-96-34 05:20:00Identifier 75166- 6 Result Time 2019-03-01 05:20:00Unknown Test Item Value Reference Range Comments Unknown (test code = DPN3186) 7.0 10^3/ul Unknown 1.5-7.7 F Ordering Physician UnknownLaboratory Jacdfof6355-11-97 05:20:00Identifier 76364- 6 Result Time 2019-03-01 05:20:00Unknown Test Item Value Reference Range Comments Unknown (test code = 742-7) 0.1 10^3/ul Unknown 0-0.8 F Ordering Physician UnknownLaboratory Dxznfql2934-88-41 05:20:00Identifier 36221- 6 Result Time 2019-03-01 05:20:00Unknown Test Item Value Reference Range Comments Unknown (test code = 731-0) 0.5 10^3/ul Unknown 1.0-4.8 F Ordering Physician UnknownLaboratory Mgslpcl8108-92-21 05:20:00Identifier 32600- 6 Result Time 2019-03-01 05:20:00Unknown Test Item Value Reference Range Comments Unknown (test code = 711-2) 0.0 10^3/ul Unknown 0-0.6 F Ordering Physician UnknownLaboratory Mwzkpkt7294-61-61 05:20:00Identifier 26249- 6 Result Time 2019-03-01 05:20:00Unknown Test Item Value Reference Range Comments Unknown (test code = 704-7) 0.0 10^3/ul Unknown 0-0.2 F Ordering Physician UnknownLaboratory Tmwzwsc4162-68-37 01:05:00Identifier 89794- 6 Result Time 2019-03-01 01:05:00Unknown Test Item Value Reference Range Comments Unknown (test code = 2744-1) 7.37 Unknown 7.35-7.45 F Ordering Physician UnknownLaboratory Kwgjrrh1428-66-76 01:05:00Identifier 07436- 6 Result Time 2019-03-01 01:05:00Unknown Test Item Value Reference Range Comments Unknown (test code = 33104-4) 211 mmHg Unknown 80-100 F Ordering Physician UnknownLaboratory Vytdnly4944-55-79 01:05:00Identifier 67524- 6 Result Time 2019-03-01 01:05:00Unknown Test Item Value Reference Range Comments Unknown (test code = NullTestCode) 51 mmHg Unknown 35-45 F Ordering Physician UnknownLaboratory Lnexizn2713-01-01 01:05:00Identifier 98030- 6 Result Time 2019-03-01 01:05:00Unknown Test Item Value Reference Range Comments Unknown (test code = 2708-6) 99.9 % Unknown 94.0-98.0 F Ordering Physician UnknownLaboratory Mocuoxi9549-21-81 01:05:00Identifier 56202- 6 Result Time 2019-03-01 01:05:00Unknown Test Item Value Reference Range Comments Unknown (test code = 1960-4) 27.4 mmol/L Unknown 19-31 F Ordering Physician UnknownLaboratory Qmcpkmm1472-98-97 01:05:00Identifier 21555- 6 Result Time 2019-03-01 01:05:00Unknown Test Item Value Reference Range Comments Unknown (test code = 1925-7) 3.1 mmol/L Unknown -2.0-2.0 F Ordering Physician UnknownLaboratory Ntudali8417-75-18 01:05:00Identifier 04299- 6 Result Time 2019-03-01 01:05:00Unknown Test Item Value Reference Range Comments Unknown (test code = NullTestCode) 80 Unknown Unknown F Ordering Physician UnknownLaboratory Gvahupm4141-16-10 01:05:00Identifier 69324- 6 Result Time 2019-03-01 01:05:00Unknown Test Item Value Reference Range Comments Unknown (test code = NullTestCode) 500 Unknown Unknown F Ordering Physician UnknownLaboratory Onxyxmj0617-12-86 01:05:00Identifier 39660- 6 Result Time 2019-03-01 01:05:00Unknown Test Item Value Reference Range Comments Unknown (test code = NullTestCode) 15 Unknown Unknown F Ordering Physician UnknownLaboratory Rudqrno4104-28-50 01:05:00Identifier 78140- 6 Result Time 2019-03-01 01:05:00Unknown Test Item Value Reference Range Comments Unknown (test code = NullTestCode) 5 Unknown Unknown F Ordering Physician UnknownLaboratory Sbhcnra6219-84-55 20:56:00Identifier 07786- 6 Result Time 2019-02-28 20:56:00Unknown Test Item Value Reference Range Comments Unknown (test code = 3016-3) 1.25 mcIU/mL Unknown 0.34-5.60 F Ordering Physician UnknownLaboratory Qmgxcgl5449-42-47 20:56:00Identifier 40404- 6 Result Time 2019-02-28 20:56:00Unknown Test Item Value Reference Range Comments Unknown (test code = 2885-2) 7.0 g/dL Unknown 6.4-8.9 F Ordering Physician UnknownLaboratory Jnstvrq4881-87-25 20:56:00Identifier 32209- 6 Result Time 2019-02-28 20:56:00Unknown Test Item Value Reference Range Comments Unknown (test code = 1975-2) 0.50 mg/dL Unknown 0.2-1.0 F Ordering Physician UnknownLaboratory Rxpvhki5034-58-35 20:56:00Identifier 38192- 6 Result Time 2019-02-28 20:56:00Unknown Test Item Value Reference Range Comments Unknown (test code = NullTestCode) 3.4 g/dL Unknown 2-4 F Ordering Physician UnknownLaboratory Mrhzwbx6144-53-31 20:56:00Identifier 73259- 6 Result Time 2019-02-28 20:56:00Unknown Test Item Value Reference Range Comments Unknown (test code = 1988-5) 64.61 mg/L Unknown 0-8.00 F Ordering Physician UnknownLaboratory Tevgyoy1716-09-55 20:56:00Identifier 18847- 6 Result Time 2019-02-28 20:56:00Unknown Test Item Value Reference Range Comments Unknown (test code = 1920-8) 16 U/L Unknown 13-39 F Ordering Physician UnknownLaboratory Xhtfrlp0932-34-73 20:56:00Identifier 72922- 6 Result Time 2019-02-28 20:56:00Unknown Test Item Value Reference Range Comments Unknown (test code = 6768-6) 60 U/L Unknown 34-104 F Ordering Physician UnknownLaboratory Ciujjvk3958-52-43 20:56:00Identifier 38996- 6 Result Time 2019-02-28 20:56:00Unknown Test Item Value Reference Range Comments Unknown (test code = 1759-0) 1.1 Unknown 1-3 F Ordering Physician UnknownLaboratory Lpodrbg4079-80-35 20:56:00Identifier 40819- 6 Result Time 2019-02-28 20:56:00Unknown Test Item Value Reference Range Comments Unknown (test code = 14285-3) 3.6 g/dL Unknown 3.2-5.2 F Ordering Physician UnknownLaboratory Ialpupc8426-40-48 20:56:00Identifier 79355- 6 Result Time 2019-02-28 20:56:00Unknown Test Item Value Reference Range Comments Unknown (test code = 1742-6) 11 U/L Unknown 7-52 F Ordering Physician UnknownLaboratory Tcskifs3050-62-19 20:56:00Identifier 45440- 6 Result Time 2019-02-28 20:56:00Unknown Test Item Value Reference Range Comments Unknown (test code = 47497-6) 224 pg/mL Unknown Unknown F Ordering Physician UnknownLaboratory Wkicgdq3141-07-01 20:56:00Identifier 06072- 6 Result Time 2019-02-28 20:56:00Unknown Test Item Value Reference Range Comments Unknown (test code = 2524-7) 1.4 mmol/L Unknown 0.5-2.0 F Ordering Physician UnknownLaboratory Wczizrs7321-35-81 20:56:00Identifier 61002- 6 Result Time 2019-02-28 20:56:00Unknown Test Item Value Reference Range Comments Unknown (test code = 49730-8) 1.12 Unknown 0.82-1.09 F Ordering Physician UnknownLaboratory Uebewba0442-28-77 20:56:00Identifier 08005- 6 Result Time 2019-02-28 20:56:00Unknown Test Item Value Reference Range Comments Unknown (test code = 44942-5) 36.2 seconds Unknown 26.0-38.0 F Ordering Physician UnknownLaboratory Exnfzfr2129-42-34 20:49:00Identifier 12518- 6 Result Time 2019-02-28 20:49:00Unknown Test Item Value Reference Range Comments Unknown (test code = NullTestCode) 6.0 Unknown 5-9 F Ordering Physician UnknownLaboratory Jusolfz0104-93-32 20:49:00Identifier 88877- 6 Result Time 2019-02-28 20:49:00Unknown Test Item Value Reference Range Comments Unknown (test code = 29608-8) 1.008 Unknown 1.010-1.030 F Ordering Physician UnknownLaboratory Dtczbgc6227-54-72 17:41:00Identifier 14974- 6 Result Time 2019-02-28 17:41:00Unknown Test Item Value Reference Range Comments Unknown (test code = 2746-6) 7.38 Unknown 7.32-7.43 F Ordering Physician UnknownLaboratory Mvfglid2812-86-33 17:41:00Identifier 00986- 6 Result Time 2019-02-28 17:41:00Unknown Test Item Value Reference Range Comments Unknown (test code = 2705-2) 51.0 mmHg Unknown 35-45 F Ordering Physician UnknownLaboratory Hgdrdou3787-46-81 17:41:00Identifier 57914- 6 Result Time 2019-02-28 17:41:00Unknown Test Item Value Reference Range Comments Unknown (test code = 2021-4) 61 mmHg Unknown 41-51 F Ordering Physician UnknownLaboratory Fmzlfsg3156-46-30 17:41:00Identifier 42338- 6 Result Time 2019-02-28 17:41:00Unknown Test Item Value Reference Range Comments Unknown (test code = 34053-1) 86.2 % Unknown 70-80 F Ordering Physician UnknownLaboratory Nqdueji0375-74-12 17:41:00Identifier 63281- 6 Result Time 2019-02-28 17:41:00Unknown Test Item Value Reference Range Comments Unknown (test code = NullTestCode) 31.3 mmol/L Unknown 24-28 F Ordering Physician UnknownLaboratory Nblgpfm2768-80-74 17:41:00Identifier 78127- 6 Result Time 2019-02-28 17:41:00Unknown Test Item Value Reference Range Comments Unknown (test code = NullTestCode) 8.7 mmol/L Unknown 0.0-4.0 F Ordering Physician UnknownLaboratory Vgxufui6138-99-74 08:40:00Identifier 79716- 6 Result Time 2019-02-10 08:40:00Unknown Test Item Value Reference Range Comments Unknown (test code = 4537-7) 68 mm/Hr Unknown 0-19 F Ordering Physician Unknown
--- OUTSIDE RECORDS SUMMARY | 2019-06-21 08:18 | XMS REPORT ---
:1950 Author Organization [facility] Care Team Providers Name Role Phone [...] Result Comments Laboratory Studies 2019-03-08 12:13:00 Identifier [id number] Result Time Unknown 2019-03-08 12:13:00 Test Item Value Reference Range Comments Unknown (test code = 2339-0) 312 mg/dL Unknown 70-100 F Ordering Physician UnknownLaboratory Diumjaq2378-05-18 06:25:00Identifier 14509- 6 Result Time 2019-03-08 06:25:00Unknown Test Item Value Reference Range Comments Unknown (test code = 2951-2) 136 mmol/L Unknown 135-145 F Ordering Physician UnknownLaboratory Itdqety3032-20-86 06:25:00Identifier 00037- 6 Result Time 2019-03-08 06:25:00Unknown Test Item Value Reference Range Comments Unknown (test code = 2823-3) 3.7 mmol/L Unknown 3.5-5.0 F Ordering Physician UnknownLaboratory Ruaaeix9189-87-69 06:25:00Identifier 76968- 6 Result Time 2019-03-08 06:25:00Unknown Test Item Value Reference Range Comments Unknown (test code = 2345-7) 175 mg/dL Unknown 70-100 F Ordering Physician UnknownLaboratory Cbwuxin1793-85-74 06:25:00Identifier 56759- 6 Result Time 2019-03-08 06:25:00Unknown Test Item Value Reference Range Comments Unknown (test code = 96583-5) 49.4 Unknown Unknown F Ordering Physician UnknownLaboratory Wcvrhmr2222-18-80 06:25:00Identifier 86957- 6 Result Time 2019-03-08 06:25:00Unknown Test Item Value Reference Range Comments Unknown (test code = NullTestCode) 59.8 Unknown Unknown F Ordering Physician UnknownLaboratory Rrtvtto3945-26-55 06:25:00Identifier 07348- 6 Result Time 2019-03-08 06:25:00Unknown Test Item Value Reference Range Comments Unknown (test code = 2160-0) 1.42 mg/dL Unknown 0.67-1.17 F Ordering Physician UnknownLaboratory Zpwpmev1248-64-19 06:25:00Identifier 28036- 6 Result Time 2019-03-08 06:25:00Unknown Test Item Value Reference Range Comments Unknown (test code = 2075-0) 97 mmol/L Unknown 101-111 F Ordering Physician UnknownLaboratory Hkzplzj4906-55-23 06:25:00Identifier 18512- 6 Result Time 2019-03-08 06:25:00Unknown Test Item Value Reference Range Comments Unknown (test code = 2028-9) 33 mmol/L Unknown 22-32 F Ordering Physician UnknownLaboratory Uesxmbm8866-51-24 06:25:00Identifier 63025- 6 Result Time 2019-03-08 06:25:00Unknown Test Item Value Reference Range Comments Unknown (test code = 96400-9) 9.6 mg/dL Unknown 8.6-10.3 F Ordering Physician UnknownLaboratory Lnrpywq1350-86-22 06:25:00Identifier 21596- 6 Result Time 2019-03-08 06:25:00Unknown Test Item Value Reference Range Comments Unknown (test code = 3094-0) 28 mg/dL Unknown 6-24 F Ordering Physician UnknownLaboratory Vmmpazd7734-27-33 06:25:00Identifier 12797- 6 Result Time 2019-03-08 06:25:00Unknown Test Item Value Reference Range Comments Unknown (test code = 3097-3) 19.7 Unknown 8-20 F Ordering Physician UnknownLaboratory Pdqdgaf0759-96-66 06:25:00Identifier 20090- 6 Result Time 2019-03-08 06:25:00Unknown Test Item Value Reference Range Comments Unknown (test code = 24432-7) 6 mmol/L Unknown 2-11 F Ordering Physician UnknownLaboratory Rqihezr9853-82-01 06:25:00Identifier 21416- 6 Result Time 2019-03-08 06:25:00Unknown Test Item Value Reference Range Comments Unknown (test code = 37364-1) 7.7 10^3/uL Unknown 3.5-10.8 F Ordering Physician UnknownLaboratory Hrpujzx0415-98-07 06:25:00Identifier 45748- 6 Result Time 2019-03-08 06:25:00Unknown Test Item Value Reference Range Comments Unknown (test code = 788-0) 15 % Unknown 10-15 F Ordering Physician UnknownLaboratory Xgjkjqu9417-21-89 06:25:00Identifier 81688- 6 Result Time 2019-03-08 06:25:00Unknown Test Item Value Reference Range Comments Unknown (test code = 789-8) 3.94 10^6 /uL Unknown 4.18-5.48 F Ordering Physician UnknownLaboratory Iajsxto0020-48-37 06:25:00Identifier 71452- 6 Result Time 2019-03-08 06:25:00Unknown Test Item Value Reference Range Comments Unknown (test code = 777-3) 164 10^3/uL Unknown 150-450 F Ordering Physician UnknownLaboratory Bjzhjwj4675-32-28 06:25:00Identifier 08559- 6 Result Time 2019-03-08 06:25:00Unknown Test Item Value Reference Range Comments Unknown (test code = 91718-6) 7.8 fL Unknown 7.4-10.4 F Ordering Physician UnknownLaboratory Unkfaoj7870-74-60 06:25:00Identifier 24371- 6 Result Time 2019-03-08 06:25:00Unknown Test Item Value Reference Range Comments Unknown (test code = 787-2) 81 fL Unknown 80-94 F Ordering Physician UnknownLaboratory Djujdor2216-36-89 06:25:00Identifier 14869- 6 Result Time 2019-03-08 06:25:00Unknown Test Item Value Reference Range Comments Unknown (test code = 786-4) 34 g/dL Unknown 31-36 F Ordering Physician UnknownLaboratory Xhuvtnt4178-22-65 06:25:00Identifier 26430- 6 Result Time 2019-03-08 06:25:00Unknown Test Item Value Reference Range Comments Unknown (test code = 785-6) 27 pg Unknown 27-31 F Ordering Physician UnknownLaboratory Enuzyuq2553-53-40 06:25:00Identifier 84038- 6 Result Time 2019-03-08 06:25:00Unknown Test Item Value Reference Range Comments Unknown (test code = 718-7) 10.8 g/dL Unknown 14.0-18.0 F Ordering Physician UnknownLaboratory Degglbs4519-09-30 06:25:00Identifier 47711- 6 Result Time 2019-03-08 06:25:00Unknown Test Item Value Reference Range Comments Unknown (test code = 4544-3) 32 % Unknown 42-52 F Ordering Physician UnknownLaboratory Icjouwl8429-35-18 06:45:00Identifier 80505- 6 Result Time 2019-03-06 06:45:00Unknown Test Item Value Reference Range Comments Unknown (test code = 2777-1) 3.3 mg/dL Unknown 2.5-5.0 F Ordering Physician UnknownLaboratory Hbuttvf1759-47-95 06:45:00Identifier 97093- 6 Result Time 2019-03-06 06:45:00Unknown Test Item Value Reference Range Comments Unknown (test code = 89978-9) 2.1 mg/dL Unknown 1.9-2.7 F Ordering Physician UnknownLaboratory Klnxifd7241-91-67 13:59:00Identifier 50207- 6 Result Time 2019-03-04 13:59:00Unknown Test Item Value Reference Range Comments Unknown (test code = NullTestCode) Unknown Unknown F Ordering Physician UnknownLaboratory Ojcwoka6467-33-98 13:59:00Identifier 40714- 6 Result Time 2019-03-04 13:59:00Unknown Test Item Value Reference Range Comments Unknown (test code = 3034-6) 203 mg/dL Unknown 203-362 F Ordering Physician UnknownLaboratory Teytnzk2092-81-77 13:59:00Identifier 71529- 6 Result Time 2019-03-04 13:59:00Unknown Test Item Value Reference Range Comments Unknown (test code = 2500-7) 284 mcg/dL Unknown 250-450 F Ordering Physician UnknownLaboratory Ysfwteu8447-43-46 13:59:00Identifier 91154- 6 Result Time 2019-03-04 13:59:00Unknown Test Item Value Reference Range Comments Unknown (test code = NullTestCode) 13 % Unknown 15-55 F Ordering Physician UnknownLaboratory Ofxiboq0029-56-69 13:59:00Identifier 97415- 6 Result Time 2019-03-04 13:59:00Unknown Test Item Value Reference Range Comments Unknown (test code = 2498-4) 36 ug/dL Unknown 50-212 F Ordering Physician UnknownLaboratory Fcjyuoz5790-26-29 17:35:00Identifier 80121- 6 Result Time 2019-03-01 17:35:00Unknown Test Item Value Reference Range Comments Unknown (test code = 2132-9) 866 pg/mL Unknown 180-914 F Ordering Physician UnknownLaboratory Haoyeot1039-48-00 17:35:00Identifier 59484- 6 Result Time 2019-03-01 17:35:00Unknown Test Item Value Reference Range Comments Unknown (test code = 3053-6) 51 ng/dL Unknown 87-178 F Ordering Physician UnknownLaboratory Pouejsh9708-53-39 17:35:00Identifier 73035- 6 Result Time 2019-03-01 17:35:00Unknown Test Item Value Reference Range Comments Unknown (test code = 3051-0) 3.10 pg/mL Unknown 2.5-3.9 F Ordering Physician UnknownLaboratory Wfccbfj4846-86-06 17:35:00Identifier 65996- 6 Result Time 2019-03-01 17:35:00Unknown Test Item Value Reference Range Comments Unknown (test code = 3024-7) 0.86 ng/dL Unknown 0.61-1.12 F Ordering Physician UnknownLaboratory Jvalcxy6544-78-53 17:35:00Identifier 44560- 6 Result Time 2019-03-01 17:35:00Unknown Test Item Value Reference Range Comments Unknown (test code = 2157-6) 52 U/L Unknown 10-223 F Ordering Physician UnknownLaboratory Jktumsc9080-20-84 17:35:00Identifier 70228- 6 Result Time 2019-03-01 17:35:00Unknown Test Item Value Reference Range Comments Unknown (test code = 70878-0) 41 mcmol/L Unknown 16-53 F Ordering Physician UnknownLaboratory Cdzmgqi0376-30-29 16:21:00Identifier 66250- 6 Result Time 2019-03-01 16:21:00Unknown Test Item Value Reference Range Comments Unknown (test code = 14345-6) 0.10 ng/mL Unknown Unknown F Ordering Physician UnknownLaboratory Btcjsqd1313-66-03 05:20:00Identifier 43054- 6 Result Time 2019-03-01 05:20:00Unknown Test Item Value Reference Range Comments Unknown (test code = 55259-8) 0.0 Unknown Unknown F Ordering Physician UnknownLaboratory Ydgtxcd6024-97-10 05:20:00Identifier 45521- 6 Result Time 2019-03-01 05:20:00Unknown Test Item Value Reference Range Comments Unknown (test code = 771-6) 0.0 10^3/ul Unknown Unknown F Ordering Physician UnknownLaboratory Vmtzrpn8767-69-94 05:20:00Identifier 98903- 6 Result Time 2019-03-01 05:20:00Unknown Test Item Value Reference Range Comments Unknown (test code = 770-8) 92.0 % Unknown Unknown F Ordering Physician UnknownLaboratory Dnjqxzc5314-68-16 05:20:00Identifier 47443- 6 Result Time 2019-03-01 05:20:00Unknown Test Item Value Reference Range Comments Unknown (test code = 5905-5) 1.8 % Unknown Unknown F Ordering Physician UnknownLaboratory Myjgpek4132-68-88 05:20:00Identifier 08173- 6 Result Time 2019-03-01 05:20:00Unknown Test Item Value Reference Range Comments Unknown (test code = 736-9) 6.0 % Unknown Unknown F Ordering Physician UnknownLaboratory Odrkjuh3928-22-09 05:20:00Identifier 29179- 6 Result Time 2019-03-01 05:20:00Unknown Test Item Value Reference Range Comments Unknown (test code = 713-8) 0.0 % Unknown Unknown F Ordering Physician UnknownLaboratory Vgzxgne3518-48-53 05:20:00Identifier 18097- 6 Result Time 2019-03-01 05:20:00Unknown Test Item Value Reference Range Comments Unknown (test code = 706-2) 0.2 % Unknown Unknown F Ordering Physician UnknownLaboratory Cudcxzd6195-01-23 05:20:00Identifier 43332- 6 Result Time 2019-03-01 05:20:00Unknown Test Item Value Reference Range Comments Unknown (test code = WCU4746) 7.0 10^3/ul Unknown 1.5-7.7 F Ordering Physician UnknownLaboratory Jzckcug9543-72-06 05:20:00Identifier 83812- 6 Result Time 2019-03-01 05:20:00Unknown Test Item Value Reference Range Comments Unknown (test code = 742-7) 0.1 10^3/ul Unknown 0-0.8 F Ordering Physician UnknownLaboratory Khjbrfc8171-84-08 05:20:00Identifier 87135- 6 Result Time 2019-03-01 05:20:00Unknown Test Item Value Reference Range Comments Unknown (test code = 731-0) 0.5 10^3/ul Unknown 1.0-4.8 F Ordering Physician UnknownLaboratory Cdmcumm0097-04-52 05:20:00Identifier 41936- 6 Result Time 2019-03-01 05:20:00Unknown Test Item Value Reference Range Comments Unknown (test code = 711-2) 0.0 10^3/ul Unknown 0-0.6 F Ordering Physician UnknownLaboratory Yxhzias7493-99-15 05:20:00Identifier 43416- 6 Result Time 2019-03-01 05:20:00Unknown Test Item Value Reference Range Comments Unknown (test code = 704-7) 0.0 10^3/ul Unknown 0-0.2 F Ordering Physician UnknownLaboratory Gtxzsuf3723-97-92 01:05:00Identifier 27007- 6 Result Time 2019-03-01 01:05:00Unknown Test Item Value Reference Range Comments Unknown (test code = 2744-1) 7.37 Unknown 7.35-7.45 F Ordering Physician UnknownLaboratory Wgmveeq5584-90-50 01:05:00Identifier 99028- 6 Result Time 2019-03-01 01:05:00Unknown Test Item Value Reference Range Comments Unknown (test code = 37076-2) 211 mmHg Unknown 80-100 F Ordering Physician UnknownLaboratory Aoyooly7776-99-36 01:05:00Identifier 67834- 6 Result Time 2019-03-01 01:05:00Unknown Test Item Value Reference Range Comments Unknown (test code = NullTestCode) 51 mmHg Unknown 35-45 F Ordering Physician UnknownLaboratory Zptnubt4464-20-79 01:05:00Identifier 48872- 6 Result Time 2019-03-01 01:05:00Unknown Test Item Value Reference Range Comments Unknown (test code = 2708-6) 99.9 % Unknown 94.0-98.0 F Ordering Physician UnknownLaboratory Pwyfwpa8675-12-06 01:05:00Identifier 23641- 6 Result Time 2019-03-01 01:05:00Unknown Test Item Value Reference Range Comments Unknown (test code = 1960-4) 27.4 mmol/L Unknown 19-31 F Ordering Physician UnknownLaboratory Abpfzud0487-98-27 01:05:00Identifier 95494- 6 Result Time 2019-03-01 01:05:00Unknown Test Item Value Reference Range Comments Unknown (test code = 1925-7) 3.1 mmol/L Unknown -2.0-2.0 F Ordering Physician UnknownLaboratory Wljcede3090-87-25 01:05:00Identifier 38357- 6 Result Time 2019-03-01 01:05:00Unknown Test Item Value Reference Range Comments Unknown (test code = NullTestCode) 80 Unknown Unknown F Ordering Physician UnknownLaboratory Uhrmski9063-16-56 01:05:00Identifier 16885- 6 Result Time 2019-03-01 01:05:00Unknown Test Item Value Reference Range Comments Unknown (test code = NullTestCode) 500 Unknown Unknown F Ordering Physician UnknownLaboratory Wcncuur6088-08-48 01:05:00Identifier 30636- 6 Result Time 2019-03-01 01:05:00Unknown Test Item Value Reference Range Comments Unknown (test code = NullTestCode) 15 Unknown Unknown F Ordering Physician UnknownLaboratory Zaynwaw8716-37-60 01:05:00Identifier 82036- 6 Result Time 2019-03-01 01:05:00Unknown Test Item Value Reference Range Comments Unknown (test code = NullTestCode) 5 Unknown Unknown F Ordering Physician UnknownLaboratory Evuttyd0049-91-24 20:56:00Identifier 04200- 6 Result Time 2019-02-28 20:56:00Unknown Test Item Value Reference Range Comments Unknown (test code = 3016-3) 1.25 mcIU/mL Unknown 0.34-5.60 F Ordering Physician UnknownLaboratory Elqosoz3352-31-49 20:56:00Identifier 82348- 6 Result Time 2019-02-28 20:56:00Unknown Test Item Value Reference Range Comments Unknown (test code = 2885-2) 7.0 g/dL Unknown 6.4-8.9 F Ordering Physician UnknownLaboratory Zzxlnlh0188-00-38 20:56:00Identifier 88015- 6 Result Time 2019-02-28 20:56:00Unknown Test Item Value Reference Range Comments Unknown (test code = 1975-2) 0.50 mg/dL Unknown 0.2-1.0 F Ordering Physician UnknownLaboratory Vtqmzss1341-54-34 20:56:00Identifier 06713- 6 Result Time 2019-02-28 20:56:00Unknown Test Item Value Reference Range Comments Unknown (test code = NullTestCode) 3.4 g/dL Unknown 2-4 F Ordering Physician UnknownLaboratory Slhjbif6327-94-54 20:56:00Identifier 19473- 6 Result Time 2019-02-28 20:56:00Unknown Test Item Value Reference Range Comments Unknown (test code = 1988-5) 64.61 mg/L Unknown 0-8.00 F Ordering Physician UnknownLaboratory Qguirhi3815-92-81 20:56:00Identifier 88760- 6 Result Time 2019-02-28 20:56:00Unknown Test Item Value Reference Range Comments Unknown (test code = 1920-8) 16 U/L Unknown 13-39 F Ordering Physician UnknownLaboratory Zicbtxt8783-46-09 20:56:00Identifier 10595- 6 Result Time 2019-02-28 20:56:00Unknown Test Item Value Reference Range Comments Unknown (test code = 6768-6) 60 U/L Unknown 34-104 F Ordering Physician UnknownLaboratory Rgmnste8252-23-36 20:56:00Identifier 02846- 6 Result Time 2019-02-28 20:56:00Unknown Test Item Value Reference Range Comments Unknown (test code = 1759-0) 1.1 Unknown 1-3 F Ordering Physician UnknownLaboratory Ayrozwv8896-54-21 20:56:00Identifier 48111- 6 Result Time 2019-02-28 20:56:00Unknown Test Item Value Reference Range Comments Unknown (test code = 68138-3) 3.6 g/dL Unknown 3.2-5.2 F Ordering Physician UnknownLaboratory Xnwvnbj8505-62-33 20:56:00Identifier 38204- 6 Result Time 2019-02-28 20:56:00Unknown Test Item Value Reference Range Comments Unknown (test code = 1742-6) 11 U/L Unknown 7-52 F Ordering Physician UnknownLaboratory Wjpsfgk2581-51-56 20:56:00Identifier 63126- 6 Result Time 2019-02-28 20:56:00Unknown Test Item Value Reference Range Comments Unknown (test code = 53420-9) 224 pg/mL Unknown Unknown F Ordering Physician UnknownLaboratory Kfblfie3482-99-38 20:56:00Identifier 90323- 6 Result Time 2019-02-28 20:56:00Unknown Test Item Value Reference Range Comments Unknown (test code = 2524-7) 1.4 mmol/L Unknown 0.5-2.0 F Ordering Physician UnknownLaboratory Fzjsjlt9792-32-88 20:56:00Identifier 29343- 6 Result Time 2019-02-28 20:56:00Unknown Test Item Value Reference Range Comments Unknown (test code = 73449-9) 1.12 Unknown 0.82-1.09 F Ordering Physician UnknownLaboratory Loyjtqg9553-89-63 20:56:00Identifier 36216- 6 Result Time 2019-02-28 20:56:00Unknown Test Item Value Reference Range Comments Unknown (test code = 11910-1) 36.2 seconds Unknown 26.0-38.0 F Ordering Physician UnknownLaboratory Psfxtae7055-75-23 20:49:00Identifier 96424- 6 Result Time 2019-02-28 20:49:00Unknown Test Item Value Reference Range Comments Unknown (test code = NullTestCode) 6.0 Unknown 5-9 F Ordering Physician UnknownLaboratory Aiiecns8038-76-67 20:49:00Identifier 28836- 6 Result Time 2019-02-28 20:49:00Unknown Test Item Value Reference Range Comments Unknown (test code = 06774-0) 1.008 Unknown 1.010-1.030 F Ordering Physician UnknownLaboratory Knxicav7840-31-64 17:41:00Identifier 97967- 6 Result Time 2019-02-28 17:41:00Unknown Test Item Value Reference Range Comments Unknown (test code = 2746-6) 7.38 Unknown 7.32-7.43 F Ordering Physician UnknownLaboratory Wwhmsgg5674-22-65 17:41:00Identifier 64363- 6 Result Time 2019-02-28 17:41:00Unknown Test Item Value Reference Range Comments Unknown (test code = 2705-2) 51.0 mmHg Unknown 35-45 F Ordering Physician UnknownLaboratory Hzwbypu6433-95-67 17:41:00Identifier 96085- 6 Result Time 2019-02-28 17:41:00Unknown Test Item Value Reference Range Comments Unknown (test code = 2021-4) 61 mmHg Unknown 41-51 F Ordering Physician UnknownLaboratory Adszlne7104-13-29 17:41:00Identifier 85478- 6 Result Time 2019-02-28 17:41:00Unknown Test Item Value Reference Range Comments Unknown (test code = 71754-4) 86.2 % Unknown 70-80 F Ordering Physician UnknownLaboratory Lyaxtww5701-77-67 17:41:00Identifier 11276- 6 Result Time 2019-02-28 17:41:00Unknown Test Item Value Reference Range Comments Unknown (test code = NullTestCode) 31.3 mmol/L Unknown 24-28 F Ordering Physician UnknownLaboratory Dptrowq5523-33-13 17:41:00Identifier 66741- 6 Result Time 2019-02-28 17:41:00Unknown Test Item Value Reference Range Comments Unknown (test code = NullTestCode) 8.7 mmol/L Unknown 0.0-4.0 F Ordering Physician UnknownLaboratory Ilzasex9289-90-15 08:40:00Identifier 67542- 6 Result Time 2019-02-10 08:40:00Unknown Test Item Value Reference Range Comments Unknown (test code = 4537-7) 68 mm/Hr Unknown 0-19 F Ordering Physician Unknown
--- OUTSIDE RECORDS SUMMARY | 2019-06-21 08:18 | XMS REPORT ---
:1950 Author Organization [facility] Care Team Providers Name Role Phone Unavailable [...] Result Comments Laboratory Studies 2019-03-08 12:13:00 Identifier [id number] Result Time Unknown 2019-03-08 12:13:00 Test Item Value Reference Range Comments Unknown (test code = 2339-0) 312 mg/dL Unknown 70-100 F Ordering Physician UnknownLaboratory Wdsexdy7139-55-87 06:25:00Identifier 12953- 6 Result Time 2019-03-08 06:25:00Unknown Test Item Value Reference Range Comments Unknown (test code = 2951-2) 136 mmol/L Unknown 135-145 F Ordering Physician UnknownLaboratory Mrbrquu5086-24-63 06:25:00Identifier 39736- 6 Result Time 2019-03-08 06:25:00Unknown Test Item Value Reference Range Comments Unknown (test code = 2823-3) 3.7 mmol/L Unknown 3.5-5.0 F Ordering Physician UnknownLaboratory Inqanzw6819-55-01 06:25:00Identifier 40813- 6 Result Time 2019-03-08 06:25:00Unknown Test Item Value Reference Range Comments Unknown (test code = 2345-7) 175 mg/dL Unknown 70-100 F Ordering Physician UnknownLaboratory Cogmwsd3497-81-59 06:25:00Identifier 78042- 6 Result Time 2019-03-08 06:25:00Unknown Test Item Value Reference Range Comments Unknown (test code = 09502-5) 49.4 Unknown Unknown F Ordering Physician UnknownLaboratory Tnpytaj2948-32-24 06:25:00Identifier 69414- 6 Result Time 2019-03-08 06:25:00Unknown Test Item Value Reference Range Comments Unknown (test code = NullTestCode) 59.8 Unknown Unknown F Ordering Physician UnknownLaboratory Yudjqqm4875-08-79 06:25:00Identifier 19064- 6 Result Time 2019-03-08 06:25:00Unknown Test Item Value Reference Range Comments Unknown (test code = 2160-0) 1.42 mg/dL Unknown 0.67-1.17 F Ordering Physician UnknownLaboratory Eivisnq3756-00-87 06:25:00Identifier 11397- 6 Result Time 2019-03-08 06:25:00Unknown Test Item Value Reference Range Comments Unknown (test code = 2075-0) 97 mmol/L Unknown 101-111 F Ordering Physician UnknownLaboratory Ypkbudl5323-57-38 06:25:00Identifier 44224- 6 Result Time 2019-03-08 06:25:00Unknown Test Item Value Reference Range Comments Unknown (test code = 2028-9) 33 mmol/L Unknown 22-32 F Ordering Physician UnknownLaboratory Jprwjqo4447-35-31 06:25:00Identifier 67331- 6 Result Time 2019-03-08 06:25:00Unknown Test Item Value Reference Range Comments Unknown (test code = 16122-8) 9.6 mg/dL Unknown 8.6-10.3 F Ordering Physician UnknownLaboratory Scicqfn6712-02-44 06:25:00Identifier 60649- 6 Result Time 2019-03-08 06:25:00Unknown Test Item Value Reference Range Comments Unknown (test code = 3094-0) 28 mg/dL Unknown 6-24 F Ordering Physician UnknownLaboratory Vcicosi5403-90-24 06:25:00Identifier 76124- 6 Result Time 2019-03-08 06:25:00Unknown Test Item Value Reference Range Comments Unknown (test code = 3097-3) 19.7 Unknown 8-20 F Ordering Physician UnknownLaboratory Zpizxzo3968-84-89 06:25:00Identifier 94455- 6 Result Time 2019-03-08 06:25:00Unknown Test Item Value Reference Range Comments Unknown (test code = 41588-9) 6 mmol/L Unknown 2-11 F Ordering Physician UnknownLaboratory Awezhpn5349-47-20 06:25:00Identifier 24913- 6 Result Time 2019-03-08 06:25:00Unknown Test Item Value Reference Range Comments Unknown (test code = 31905-2) 7.7 10^3/uL Unknown 3.5-10.8 F Ordering Physician UnknownLaboratory Lcmbggu5911-04-96 06:25:00Identifier 92033- 6 Result Time 2019-03-08 06:25:00Unknown Test Item Value Reference Range Comments Unknown (test code = 788-0) 15 % Unknown 10-15 F Ordering Physician UnknownLaboratory Bqxbqhw5218-23-34 06:25:00Identifier 62761- 6 Result Time 2019-03-08 06:25:00Unknown Test Item Value Reference Range Comments Unknown (test code = 789-8) 3.94 10^6 /uL Unknown 4.18-5.48 F Ordering Physician UnknownLaboratory Sqrnqgh4673-97-48 06:25:00Identifier 43874- 6 Result Time 2019-03-08 06:25:00Unknown Test Item Value Reference Range Comments Unknown (test code = 777-3) 164 10^3/uL Unknown 150-450 F Ordering Physician UnknownLaboratory Jslbxwh6722-51-73 06:25:00Identifier 20246- 6 Result Time 2019-03-08 06:25:00Unknown Test Item Value Reference Range Comments Unknown (test code = 53900-1) 7.8 fL Unknown 7.4-10.4 F Ordering Physician UnknownLaboratory Qvppqlk4063-37-84 06:25:00Identifier 30944- 6 Result Time 2019-03-08 06:25:00Unknown Test Item Value Reference Range Comments Unknown (test code = 787-2) 81 fL Unknown 80-94 F Ordering Physician UnknownLaboratory Xynqyhu5891-58-57 06:25:00Identifier 98388- 6 Result Time 2019-03-08 06:25:00Unknown Test Item Value Reference Range Comments Unknown (test code = 786-4) 34 g/dL Unknown 31-36 F Ordering Physician UnknownLaboratory Twdzdkq4547-80-74 06:25:00Identifier 80501- 6 Result Time 2019-03-08 06:25:00Unknown Test Item Value Reference Range Comments Unknown (test code = 785-6) 27 pg Unknown 27-31 F Ordering Physician UnknownLaboratory Mirfzhe1658-88-01 06:25:00Identifier 77541- 6 Result Time 2019-03-08 06:25:00Unknown Test Item Value Reference Range Comments Unknown (test code = 718-7) 10.8 g/dL Unknown 14.0-18.0 F Ordering Physician UnknownLaboratory Vhegwsn3260-15-60 06:25:00Identifier 43300- 6 Result Time 2019-03-08 06:25:00Unknown Test Item Value Reference Range Comments Unknown (test code = 4544-3) 32 % Unknown 42-52 F Ordering Physician UnknownLaboratory Jsqvrvf2548-36-69 06:45:00Identifier 13147- 6 Result Time 2019-03-06 06:45:00Unknown Test Item Value Reference Range Comments Unknown (test code = 2777-1) 3.3 mg/dL Unknown 2.5-5.0 F Ordering Physician UnknownLaboratory Yrhumqi0375-62-04 06:45:00Identifier 79207- 6 Result Time 2019-03-06 06:45:00Unknown Test Item Value Reference Range Comments Unknown (test code = 01485-0) 2.1 mg/dL Unknown 1.9-2.7 F Ordering Physician UnknownLaboratory Vofxcjg5014-35-36 13:59:00Identifier 02299- 6 Result Time 2019-03-04 13:59:00Unknown Test Item Value Reference Range Comments Unknown (test code = NullTestCode) Unknown Unknown F Ordering Physician UnknownLaboratory Dhakmba0900-39-65 13:59:00Identifier 25254- 6 Result Time 2019-03-04 13:59:00Unknown Test Item Value Reference Range Comments Unknown (test code = 3034-6) 203 mg/dL Unknown 203-362 F Ordering Physician UnknownLaboratory Lkrsija8653-20-95 13:59:00Identifier 82242- 6 Result Time 2019-03-04 13:59:00Unknown Test Item Value Reference Range Comments Unknown (test code = 2500-7) 284 mcg/dL Unknown 250-450 F Ordering Physician UnknownLaboratory Ahyocyi4011-84-91 13:59:00Identifier 61674- 6 Result Time 2019-03-04 13:59:00Unknown Test Item Value Reference Range Comments Unknown (test code = NullTestCode) 13 % Unknown 15-55 F Ordering Physician UnknownLaboratory Tkuqxjn9580-12-48 13:59:00Identifier 17879- 6 Result Time 2019-03-04 13:59:00Unknown Test Item Value Reference Range Comments Unknown (test code = 2498-4) 36 ug/dL Unknown 50-212 F Ordering Physician UnknownLaboratory Nlmyvki2378-78-13 17:35:00Identifier 18891- 6 Result Time 2019-03-01 17:35:00Unknown Test Item Value Reference Range Comments Unknown (test code = 2132-9) 866 pg/mL Unknown 180-914 F Ordering Physician UnknownLaboratory Lwognqe0972-75-81 17:35:00Identifier 66358- 6 Result Time 2019-03-01 17:35:00Unknown Test Item Value Reference Range Comments Unknown (test code = 3053-6) 51 ng/dL Unknown 87-178 F Ordering Physician UnknownLaboratory Zsqdupu5880-98-05 17:35:00Identifier 11281- 6 Result Time 2019-03-01 17:35:00Unknown Test Item Value Reference Range Comments Unknown (test code = 3051-0) 3.10 pg/mL Unknown 2.5-3.9 F Ordering Physician UnknownLaboratory Fugegoc6723-90-73 17:35:00Identifier 58937- 6 Result Time 2019-03-01 17:35:00Unknown Test Item Value Reference Range Comments Unknown (test code = 3024-7) 0.86 ng/dL Unknown 0.61-1.12 F Ordering Physician UnknownLaboratory Efrllcp1650-96-97 17:35:00Identifier 06352- 6 Result Time 2019-03-01 17:35:00Unknown Test Item Value Reference Range Comments Unknown (test code = 2157-6) 52 U/L Unknown 10-223 F Ordering Physician UnknownLaboratory Htrimbf8791-31-53 17:35:00Identifier 79460- 6 Result Time 2019-03-01 17:35:00Unknown Test Item Value Reference Range Comments Unknown (test code = 51350-6) 41 mcmol/L Unknown 16-53 F Ordering Physician UnknownLaboratory Vasxfzo7851-72-40 16:21:00Identifier 60136- 6 Result Time 2019-03-01 16:21:00Unknown Test Item Value Reference Range Comments Unknown (test code = 13363-5) 0.10 ng/mL Unknown Unknown F Ordering Physician UnknownLaboratory Xqabcir5923-94-81 05:20:00Identifier 49953- 6 Result Time 2019-03-01 05:20:00Unknown Test Item Value Reference Range Comments Unknown (test code = 15479-5) 0.0 Unknown Unknown F Ordering Physician UnknownLaboratory Upnirgh3060-23-60 05:20:00Identifier 76300- 6 Result Time 2019-03-01 05:20:00Unknown Test Item Value Reference Range Comments Unknown (test code = 771-6) 0.0 10^3/ul Unknown Unknown F Ordering Physician UnknownLaboratory Pytztkt5512-93-24 05:20:00Identifier 57889- 6 Result Time 2019-03-01 05:20:00Unknown Test Item Value Reference Range Comments Unknown (test code = 770-8) 92.0 % Unknown Unknown F Ordering Physician UnknownLaboratory Klrvcbu4115-11-71 05:20:00Identifier 40113- 6 Result Time 2019-03-01 05:20:00Unknown Test Item Value Reference Range Comments Unknown (test code = 5905-5) 1.8 % Unknown Unknown F Ordering Physician UnknownLaboratory Xvduyar6429-27-96 05:20:00Identifier 79542- 6 Result Time 2019-03-01 05:20:00Unknown Test Item Value Reference Range Comments Unknown (test code = 736-9) 6.0 % Unknown Unknown F Ordering Physician UnknownLaboratory Dvwpfbe4384-18-56 05:20:00Identifier 31551- 6 Result Time 2019-03-01 05:20:00Unknown Test Item Value Reference Range Comments Unknown (test code = 713-8) 0.0 % Unknown Unknown F Ordering Physician UnknownLaboratory Hchlgik9649-96-39 05:20:00Identifier 26729- 6 Result Time 2019-03-01 05:20:00Unknown Test Item Value Reference Range Comments Unknown (test code = 706-2) 0.2 % Unknown Unknown F Ordering Physician UnknownLaboratory Novzsbx9351-20-13 05:20:00Identifier 32585- 6 Result Time 2019-03-01 05:20:00Unknown Test Item Value Reference Range Comments Unknown (test code = TAN5794) 7.0 10^3/ul Unknown 1.5-7.7 F Ordering Physician UnknownLaboratory Abwmcgr4883-98-74 05:20:00Identifier 16167- 6 Result Time 2019-03-01 05:20:00Unknown Test Item Value Reference Range Comments Unknown (test code = 742-7) 0.1 10^3/ul Unknown 0-0.8 F Ordering Physician UnknownLaboratory Uaxfids0691-43-11 05:20:00Identifier 67838- 6 Result Time 2019-03-01 05:20:00Unknown Test Item Value Reference Range Comments Unknown (test code = 731-0) 0.5 10^3/ul Unknown 1.0-4.8 F Ordering Physician UnknownLaboratory Ankgkyr2750-82-67 05:20:00Identifier 54319- 6 Result Time 2019-03-01 05:20:00Unknown Test Item Value Reference Range Comments Unknown (test code = 711-2) 0.0 10^3/ul Unknown 0-0.6 F Ordering Physician UnknownLaboratory Sdmpjto9302-19-08 05:20:00Identifier 44164- 6 Result Time 2019-03-01 05:20:00Unknown Test Item Value Reference Range Comments Unknown (test code = 704-7) 0.0 10^3/ul Unknown 0-0.2 F Ordering Physician UnknownLaboratory Amwhnkk1693-92-40 01:05:00Identifier 82705- 6 Result Time 2019-03-01 01:05:00Unknown Test Item Value Reference Range Comments Unknown (test code = 2744-1) 7.37 Unknown 7.35-7.45 F Ordering Physician UnknownLaboratory Jeeqozr4392-87-90 01:05:00Identifier 07152- 6 Result Time 2019-03-01 01:05:00Unknown Test Item Value Reference Range Comments Unknown (test code = 86502-9) 211 mmHg Unknown 80-100 F Ordering Physician UnknownLaboratory Ojkdjlf4827-67-25 01:05:00Identifier 80428- 6 Result Time 2019-03-01 01:05:00Unknown Test Item Value Reference Range Comments Unknown (test code = NullTestCode) 51 mmHg Unknown 35-45 F Ordering Physician UnknownLaboratory Szaajjz2261-54-29 01:05:00Identifier 45957- 6 Result Time 2019-03-01 01:05:00Unknown Test Item Value Reference Range Comments Unknown (test code = 2708-6) 99.9 % Unknown 94.0-98.0 F Ordering Physician UnknownLaboratory Cczwcvo9449-20-68 01:05:00Identifier 63545- 6 Result Time 2019-03-01 01:05:00Unknown Test Item Value Reference Range Comments Unknown (test code = 1960-4) 27.4 mmol/L Unknown 19-31 F Ordering Physician UnknownLaboratory Pkdywul4290-73-29 01:05:00Identifier 99245- 6 Result Time 2019-03-01 01:05:00Unknown Test Item Value Reference Range Comments Unknown (test code = 1925-7) 3.1 mmol/L Unknown -2.0-2.0 F Ordering Physician UnknownLaboratory Dtyvbdf0381-59-69 01:05:00Identifier 22881- 6 Result Time 2019-03-01 01:05:00Unknown Test Item Value Reference Range Comments Unknown (test code = NullTestCode) 80 Unknown Unknown F Ordering Physician UnknownLaboratory Qyhxuvg3988-62-25 01:05:00Identifier 49854- 6 Result Time 2019-03-01 01:05:00Unknown Test Item Value Reference Range Comments Unknown (test code = NullTestCode) 500 Unknown Unknown F Ordering Physician UnknownLaboratory Krvsmxo0828-31-32 01:05:00Identifier 25862- 6 Result Time 2019-03-01 01:05:00Unknown Test Item Value Reference Range Comments Unknown (test code = NullTestCode) 15 Unknown Unknown F Ordering Physician UnknownLaboratory Rgvisik8839-02-99 01:05:00Identifier 48863- 6 Result Time 2019-03-01 01:05:00Unknown Test Item Value Reference Range Comments Unknown (test code = NullTestCode) 5 Unknown Unknown F Ordering Physician UnknownLaboratory Aoeksjv9432-25-54 20:56:00Identifier 77559- 6 Result Time 2019-02-28 20:56:00Unknown Test Item Value Reference Range Comments Unknown (test code = 3016-3) 1.25 mcIU/mL Unknown 0.34-5.60 F Ordering Physician UnknownLaboratory Bxjbski3944-72-12 20:56:00Identifier 15689- 6 Result Time 2019-02-28 20:56:00Unknown Test Item Value Reference Range Comments Unknown (test code = 2885-2) 7.0 g/dL Unknown 6.4-8.9 F Ordering Physician UnknownLaboratory Wkjiacn1435-93-00 20:56:00Identifier 90799- 6 Result Time 2019-02-28 20:56:00Unknown Test Item Value Reference Range Comments Unknown (test code = 1975-2) 0.50 mg/dL Unknown 0.2-1.0 F Ordering Physician UnknownLaboratory Expvfja3575-70-40 20:56:00Identifier 75058- 6 Result Time 2019-02-28 20:56:00Unknown Test Item Value Reference Range Comments Unknown (test code = NullTestCode) 3.4 g/dL Unknown 2-4 F Ordering Physician UnknownLaboratory Owbilys7752-22-91 20:56:00Identifier 86714- 6 Result Time 2019-02-28 20:56:00Unknown Test Item Value Reference Range Comments Unknown (test code = 1988-5) 64.61 mg/L Unknown 0-8.00 F Ordering Physician UnknownLaboratory Rumzegx7299-35-37 20:56:00Identifier 41705- 6 Result Time 2019-02-28 20:56:00Unknown Test Item Value Reference Range Comments Unknown (test code = 1920-8) 16 U/L Unknown 13-39 F Ordering Physician UnknownLaboratory Lxsxvtf7412-86-65 20:56:00Identifier 45569- 6 Result Time 2019-02-28 20:56:00Unknown Test Item Value Reference Range Comments Unknown (test code = 6768-6) 60 U/L Unknown 34-104 F Ordering Physician UnknownLaboratory Fczlnua4231-70-00 20:56:00Identifier 63030- 6 Result Time 2019-02-28 20:56:00Unknown Test Item Value Reference Range Comments Unknown (test code = 1759-0) 1.1 Unknown 1-3 F Ordering Physician UnknownLaboratory Azdordb0222-21-37 20:56:00Identifier 75171- 6 Result Time 2019-02-28 20:56:00Unknown Test Item Value Reference Range Comments Unknown (test code = 11032-6) 3.6 g/dL Unknown 3.2-5.2 F Ordering Physician UnknownLaboratory Bkwlnpa2839-41-26 20:56:00Identifier 57544- 6 Result Time 2019-02-28 20:56:00Unknown Test Item Value Reference Range Comments Unknown (test code = 1742-6) 11 U/L Unknown 7-52 F Ordering Physician UnknownLaboratory Hjwazjj1786-54-40 20:56:00Identifier 37176- 6 Result Time 2019-02-28 20:56:00Unknown Test Item Value Reference Range Comments Unknown (test code = 55394-2) 224 pg/mL Unknown Unknown F Ordering Physician UnknownLaboratory Dtwexbq7462-03-66 20:56:00Identifier 31554- 6 Result Time 2019-02-28 20:56:00Unknown Test Item Value Reference Range Comments Unknown (test code = 2524-7) 1.4 mmol/L Unknown 0.5-2.0 F Ordering Physician UnknownLaboratory Shhqmcy1389-55-01 20:56:00Identifier 86735- 6 Result Time 2019-02-28 20:56:00Unknown Test Item Value Reference Range Comments Unknown (test code = 96614-9) 1.12 Unknown 0.82-1.09 F Ordering Physician UnknownLaboratory Jpvwabh7651-18-13 20:56:00Identifier 14521- 6 Result Time 2019-02-28 20:56:00Unknown Test Item Value Reference Range Comments Unknown (test code = 20074-7) 36.2 seconds Unknown 26.0-38.0 F Ordering Physician UnknownLaboratory Vprolrb8926-51-17 20:49:00Identifier 85355- 6 Result Time 2019-02-28 20:49:00Unknown Test Item Value Reference Range Comments Unknown (test code = NullTestCode) 6.0 Unknown 5-9 F Ordering Physician UnknownLaboratory Itdkekh5537-26-26 20:49:00Identifier 70894- 6 Result Time 2019-02-28 20:49:00Unknown Test Item Value Reference Range Comments Unknown (test code = 29977-2) 1.008 Unknown 1.010-1.030 F Ordering Physician UnknownLaboratory Tmqkvlb6643-59-04 17:41:00Identifier 29727- 6 Result Time 2019-02-28 17:41:00Unknown Test Item Value Reference Range Comments Unknown (test code = 2746-6) 7.38 Unknown 7.32-7.43 F Ordering Physician UnknownLaboratory Dmggdpm0637-30-92 17:41:00Identifier 27428- 6 Result Time 2019-02-28 17:41:00Unknown Test Item Value Reference Range Comments Unknown (test code = 2705-2) 51.0 mmHg Unknown 35-45 F Ordering Physician UnknownLaboratory Qsalvbp6189-90-79 17:41:00Identifier 99817- 6 Result Time 2019-02-28 17:41:00Unknown Test Item Value Reference Range Comments Unknown (test code = 2021-4) 61 mmHg Unknown 41-51 F Ordering Physician UnknownLaboratory Quqrhnj0721-73-44 17:41:00Identifier 38238- 6 Result Time 2019-02-28 17:41:00Unknown Test Item Value Reference Range Comments Unknown (test code = 58653-1) 86.2 % Unknown 70-80 F Ordering Physician UnknownLaboratory Vguynwr5124-86-08 17:41:00Identifier 07359- 6 Result Time 2019-02-28 17:41:00Unknown Test Item Value Reference Range Comments Unknown (test code = NullTestCode) 31.3 mmol/L Unknown 24-28 F Ordering Physician UnknownLaboratory Xpyqxch1597-00-58 17:41:00Identifier 71663- 6 Result Time 2019-02-28 17:41:00Unknown Test Item Value Reference Range Comments Unknown (test code = NullTestCode) 8.7 mmol/L Unknown 0.0-4.0 F Ordering Physician UnknownLaboratory Zpndtuj2715-64-35 08:40:00Identifier 22978- 6 Result Time 2019-02-10 08:40:00Unknown Test Item Value Reference Range Comments Unknown (test code = 4537-7) 68 mm/Hr Unknown 0-19 F Ordering Physician Unknown
--- OUTSIDE RECORDS SUMMARY | 2019-06-21 08:19 | XMS REPORT | Continuity of Care Document ---
:1950 External Reference #:[id number] Author Name Norman Marie M.D. (transmitted by agent of provider Liz Power) Address [address] [address] Care Team Providers Name Role Phone Deonte Masters MD - Family Medicine Care Team Information Bi Analyst [phone] Problems Active Problems Provider Date Pneumonia due to Streptococcus Nathalie Prado D.O. Onset: 05/03/2011 Rheumatoid arthritis Rufino Varela M.D. Onset: 07/16/2013 Pneumonia Rufino Varela M.D. Onset: 07/16/2013 Sepsis Rufino Varela M.D. Onset: 07/16/2013 Acute osteomyelitis Rufino Varela M.D. Onset: 07/16/2013 Pulmonary emphysema Rufino Varela M.D. Onset: 07/16/2013 Type 2 diabetes mellitus Rufino Varela M.D. 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 Onset: 07/16/2013 [...] Former Cigarette Smoker Unknown Smoking Status Reviewed: 05/02/19 Former Cigarette Smoker ETOH Use Denies alcohol [...] once Unknown Unsure a day Aerosol Celebrex Take one Unknown 200mg capsule/tablet Capsules daily by mouth Sertraline HCL Take One Tablet By Unknown 25mg Mouth Every Day Am Tablets Pioglitazone HCL 1 tablet po daily Deonte Masters, Am MD 15mg Tablets Omeprazole 1 by mouth every Unknown 20mg day Capsules DR Buspirone HCL two daily prn ( Unknown 10mg Last taken September) Furosemide 1 and 1/2 tablet po 30tabs Shallish, Deonte, 40mg daily ( 60 mg total MD Tablets in the Am) Levalbuterol HCL 2 puffs [facility] L[facility]a, UNARMED SECURITY OFFICER-C 1.25mg/3ML Nebulizer Lyrica 1 by mouth three [...] one sl q5min up to 25tabs Otoniel Hogan 0.4mg 3 doses as needed Brand, M.D. Tablets Sub Multivitamins/Iron 1 capsule daily 30caps Unknown Capsules Simvastatin 1 po qd 30tabs Unknown 20mg Tablets Mirtazapine 1 po hs 30tabs Unknown 30mg Tablets History Medications Minocycline HCL take one capsule/tablet 60caps Emmanuel Galo, 02/20/2019 - 100mg by mouth twice daily M.D. 03/09/2019 Capsules Immunizations Description No Information Available Vital Signs Date Vital Result Comment 05/02/2019 10:31am Height 73 inches 6'1" Heart Rate 90 /min irregular, L. radial BP Systolic Sitting 122 mmHg Lue, reg cuff BP Diastolic Sitting 70 mmHg Lue, reg cuff O2 % BldC Oximetry 92 % on 2L NC 04/24/2019 10:13am Height 73 inches 6'1" Weight 260.00 lb Heart Rate 72 /min BP Systolic Sitting 152 mmHg BP Diastolic Sitting 76 mmHg Respiratory Rate 24 /min BMI (Body Mass Index) 34.3 kg/m2 Results Test Date Facility Test Result H/L Range Note Laboratory test 02/10/2019 [facility] Erythrocyte Sed 68 mm/Hr High 0-19 [address] [place] [address] [phone] C Reactive Protein 14.64 mg/L High <8.01 2 CBC Auto 02/10/2019 [facility] White Blood 5.8 10^3/uL Normal 3.5-10.[address] [place] [address] [phone] Red Blood Count 3.94 10^6/uL Low 4.18-5.48 [...] Blood Cells % 0.1 Comp Metabolic 02/10/2019 [facility] Sodium 139 mmol/L Normal 135-[address] [place] [address] [phone] Potassium 4.3 mmol/L Normal 3.5-5.0 Chloride 98 [...] Egfr Non- 43.2 >60 Egfr 52.3 >60 3 1 Please check 2 days before follow up 2 Please check 2 days before follow up 3 Because [...] dialysis) Procedures Date Code Description Status 01/17/2019 22434 Pace Maker Eval W/Iterative Adjment Dual Lead Completed 01/17/2019 52736 Pace Maker Eval W/Iterative Adjment Dual Lead Completed 02/08/2012 [id number] Colonoscopy Completed Medical Devices Description No Information Available Encounters Type Date Location Provider Dx Diagnosis Office Visit 03/12/2019 Rheumatology Emmanuel Rosenthal, M05.79 Rheu arthritis w 9:00a [facility] mult site w/o org/sys involv G62.9 Polyneuropathy, unspecified N18.9 Chronic kidney disease, unspecified R29.6 Repeated falls Office 03/08/2019 [facility] Donnie T40.2x1A Poisoning by oth Visit 11:58a Assoc,pc [place], [place] opioids, accidental Hospitalists (unintentional), init J96.91 Respiratory failure, unspecified with hypoxia R29.6 Repeated falls Office 03/07/2019 [facility] Donnie T40.2x1A Poisoning by oth Visit 11:58a Assoc,pc [place] opioids, accidental Hospitalists (unintentional), init G89.29 Other chronic pain R53.1 Weakness R29.6 Repeated falls Office 03/06/2019 [facility] T40.2x1A Poisoning by oth Visit 11:57a Assoc,pc Amrik, UNARMED SECURITY OFFICER opioids, accidental Hospitalists (unintentional), init E11.9 Type 2 diabetes mellitus without complications G89.29 Other chronic pain J44.9 Chronic obstructive pulmonary disease, unspecified I10 Essential (primary) hypertension Office 03/05/2019 [facility] T40.2x1A Poisoning by oth Visit 11:57a Assoc,pc Amrik, UNARMED SECURITY OFFICER opioids, accidental Hospitalists (unintentional), init E11.9 Type 2 diabetes mellitus without complications J44.9 Chronic obstructive pulmonary disease, unspecified I10 Essential (primary) hypertension [facility] Poisoning by oth Visit 11:57a Assoc,pc Amrik, UNARMED SECURITY OFFICER opioids, accidental Hospitalists (unintentional), init G89.29 Other chronic pain E11.9 Type 2 diabetes mellitus without complications J44.9 Chronic obstructive pulmonary disease, unspecified Office 03[facility] T[facility].2x1A Poisoning by oth Visit 11:56a Assoc,pc Amrik, UNARMED SECURITY OFFICER opioids, accidental Hospitalists (unintentional), init R29.6 Repeated falls G89.29 Other chronic pain E11.9 Type 2 diabetes mellitus without complications Office 03/02/2019 [facility] T40.2x1A Poisoning by oth Visit 11:56a [facility]oc[facility] opioids, accidental Hospitalists LAURA Nascimento (unintentional), init R29.6 Repeated falls I10 Essential (primary) hypertension J44.9 Chronic obstructive pulmonary disease, unspecified Office Visit 03/01/2019 [facility] Yasmani Gomez R29.6 Repeated falls 7:00a [facility] R40.0 Somnolence Office Visit 03/01/2019 11:54a Intensivists Pratik Rosas, J96.21 Acute and chronic MD respiratory failure with hypoxia G93.40 Encephalopathy, unspecified R53.1 Weakness R29.6 Repeated falls Office 02/28/2019 [facility] T40.2x1A Poisoning by oth Visit 11:54a Assoc,syed Prado D.O. 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 unspecified 04/24/2019 E11.42 Type 2 diabetes mellitus with diabetic Yasmani Peres M.D. polyneuropathy 04/24/2019 R29.6 Repeated falls Yasmani Peres M.D. 03/12/2019 M05.79 Rheumatoid arthritis with rheumatoid Emmanuel Rosenthal M.D. [facility] 03/12/2019 G62.9 Polyneuropathy, unspecified Emmanuel Rosenthal [...] Poisoning by other opioids, accidental Marylou Amrik, UNARMED SECURITY OFFICER (unintentional), initial encounter 03/06/2019 E11.9 Type 2 diabetes mellitus without Marylou Amrik, UNARMED SECURITY OFFICER complications 03/06/2019 G89.29 Other chronic pain Marylou Amrik, UNARMED SECURITY OFFICER 03/06/2019 J44.9 Chronic obstructive pulmonary disease, Marylou Amrik, UNARMED SECURITY OFFICER unspecified 03/06/2019 I10 Essential (primary) hypertension Marylou Amrik, UNARMED SECURITY OFFICER 03/05/2019 T40.2x1A Poisoning by other opioids, accidental Marylou Amrik, UNARMED SECURITY OFFICER (unintentional), initial encounter 03/05/2019 E11.9 Type 2 diabetes mellitus without Marylou Amrik, UNARMED SECURITY OFFICER complications 03/05/2019 J44.9 Chronic obstructive pulmonary disease, Marylou Amrik, UNARMED SECURITY OFFICER unspecified 03/05/2019 I10 Essential (primary) hypertension Marylou Amrik, UNARMED SECURITY OFFICER 03/04/2019 T40.2x1A Poisoning by other opioids, accidental Marylou Amrik, UNARMED SECURITY OFFICER (unintentional), initial encounter 03/04/2019 G89.29 Other chronic pain Marylou Amrik, UNARMED SECURITY OFFICER 03/04/2019 E11.9 Type 2 diabetes mellitus without Marylou Amrik, UNARMED SECURITY OFFICER complications 03/04/2019 J44.9 Chronic obstructive pulmonary disease, Marylou Amrik, UNARMED SECURITY OFFICER unspecified 03/03/2019 T40.2x1A Poisoning by other opioids, accidental Marylou Amrik, UNARMED SECURITY OFFICER (unintentional), initial encounter 03/03/2019 R29.6 Repeated falls Marylou Amrik, UNARMED SECURITY OFFICER 03/03/2019 G89.29 Other chronic pain Marylou Amrik, UNARMED SECURITY OFFICER 03/03/2019 E11.9 Type 2 diabetes mellitus without Marylou Amrik, UNARMED SECURITY OFFICER complications 03/02/2019 T40.2x1A Poisoning by other opioids, accidental Meg Nascimento, UNARMED SECURITY OFFICER (unintentional), initial encounter 03/02/2019 R29.6 Repeated falls Meg Nascimento, UNARMED SECURITY OFFICER 03/02/2019 I10 Essential (primary) hypertension Meg Nascimento, UNARMED SECURITY OFFICER 03/02/2019 J44.9 Chronic obstructive pulmonary disease, Meg Nascimento, UNARMED SECURITY OFFICER unspecified 03/01/2019 R29.6 Repeated falls Yasmani Peres [...] Schedule 01/17/2019 I25.10 Atherosclerotic heart disease of [place] Otoniel Agustin M.D. coronary artery with Plan of Treatment Future Appointment(s):05/29/2019 1:20 pm - Emmanuel Rosenthal M.D. at [facility]07/11/2019 2:30 pm - Otoniel Agustin M.D. at [place] [facility]07/11/2019 2:00 pm - Ica Pacer Schedule at [facility]05/02/2019 - Norman Marie M.D.I73.9 Peripheral vascular [...]
--- OUTSIDE RECORDS SUMMARY | 2019-06-21 08:19 | XMS REPORT | Continuity of Care Document ---
:1950 External Reference #:[id number] Author Name Emmanuel Tapia M.D. Address [address] [place] [address] Care Team Providers Name Role Phone Deonte Masters M.D. - Internal Care Team Information Product Mgmt Dev Manager Medicine Otoniel Agustin M.D. - Cardiovascular Care Team Information Product Mgmt Dev Manager [phone] Disease Rufino Varela M.D. - Rheumatology Care Team Information Product Mgmt Dev Manager Problems Active Problems Provider Date Cellulitis Onset: Moderate chronic obstructive pulmonary Onset: disease Type 2 diabetes mellitus Onset: 08/01/1990 Heart disease Onset: Rheumatoid arthritis Onset: Disorder of eye with type 2 diabetes mellitus Emmanuel Tapia M.D. Onset: Nonproliferative diabetic retinopathy Emmanuel Tapia M.D. Onset: 03/11/2015 Vitreous degeneration Emmanuel Tapia M.D. Onset: 03/11/2015 Pseudophakia Emmanuel Tapia M.D. Onset: 03/11/2015 Tear film insufficiency Emmanuel Tapia M.D. Onset: 04/21/2018 Type 2 diabetes mellitus with mild Emmanuel Tapia M.D. Onset: 04/19/2017 nonproliferative diabetic retinopathy without macular edema, bilateral Social History Type Date Description Comments Sex Unknown ETOH Use Denies alcohol use Recreational Drug Use Denies Drug Use Tobacco Use Start: Unknown Patient has never smoked Smoking Status Reviewed: 04/24/19 Patient has never smoked Allergies, Adverse Reactions, Alerts Description No Known Drug Allergies Medications Active Medications SIG Qnty Indications Ordering Provider Date Duloxetine HCL Unknown 30mg Caps Part Glipizide XL Unknown 2.5mg Tablets ER 24HR Lorazepam Unknown 0.5mg Tablets Singulair Unknown 10mg Tablets Omeprazole Unknown 20mg Capsules Rapaflo Unknown 8mg Capsules Simvastatin Unknown 20mg Tablets Trazodone HCL Unknown 50mg Tablets Aspirin Unknown 81mg Tablets Multi Vitamin Daily Unknown Tablets Vitamin D every day Unknown 1000Unit Tablets Lantus Solostar Unknown 100Unit/ML Solution Pen-Inject Lasix 1 by mouth every Unknown 20mg Tablets day (per pt and 06/11/16 [facility] dc list pt taking 10 mg qd) Immunizations Description No Information Available Vital Signs Description No Information Available Results Description No Information Available Procedures Description No Information Available Medical Devices Description No Information Available Encounters Description No Information Available Assessments Date Code Description Provider 04/24/2019 E11.3293 Type 2 diabetes mellitus with mild Emmanuel Tapia M.D. nonproliferative diabetic 04/24/2019 Z96.1 Presence of intraocular lens Emmanuel Tapia M.D. 04/24/2019 H04.123 Dry eye syndrome of bilateral lacrimal Emmanuel Tapia M.D. glands Plan of Treatment 04/24/2019 - Emmanuel Tapia M.D.E11.3293 Type 2 diabetes mellitus with mild nonproliferative diabeticComments:Smoking can increase the risk of developing or worsening any eye related disease, as well as affect your overall health. If you are a smoker, we strongly recommend that you quit.If you are not a smoker , we strongly recommend that you do not start. I can detect diabetic changes in your eyes. Proper control of your diabetes is important for the health of your eyes. It is important that you keep all of your follow up appointments. Dr. Tapia has sent a report to your primary care doctor, letting them know the current status of your retina.Follow up:1 Year Follow Up OCT MAC You can expect to have your eyes dilated at your next visit. If Dr. Arleo orders any additional testing, it may require extra time. We recommend that you bring sunglasses, as dilation drops often make you light sensitive until they wear off. We always recommend you bring someone to drive you home if you are uncomfortable driving with your eyes dilated. If you have any questions before your next visit, feel free to call our office at .Z96.1 Presence of intraocular lensComments:The artificial lens implants in both eyes appear to be stable at this time.H04.123 Dry eye syndrome of bilateral lacrimal glands Functional Status Description No Information Available Mental Status Description No Information Available Referrals Description No Information Available
--- OUTSIDE RECORDS SUMMARY | 2019-06-21 08:19 | XMS REPORT | Continuity of Care Document ---
:1950 External Reference #:[id number] Author Name Yasmani Peres M.D. (transmitted by agent of provider Sneha Palmer) Address [address], [place] [address] Care Team Providers Name Role Phone Deonte Masters MD - Family Medicine Care Team Information Garnetter Problems Active Problems Provider Date Pneumonia due to Streptococcus Nathalie Prado D.O. Onset: 05/03/2011 Rheumatoid arthritis Rufino Varela M.D. Onset: 07/16/2013 Pneumonia Rufino Varela M.D. Onset: 07/16/2013 Sepsis Rufino Varela M.D. Onset: 07/16/2013 Acute osteomyelitis Rufino Varela M.D. Onset: 07/16/2013 Pulmonary emphysema Rufino Varela M.D. Onset: 07/16/2013 Type 2 diabetes mellitus Rufino Varela M.D. Onset: 07/16/2013 Medications Correction (Current) Use Rufino Varela M.D. Onset: 07/16/2013 [...] Former Cigarette Smoker Unknown Smoking Status Reviewed: 04/24/19 Former Cigarette Smoker ETOH Use Denies alcohol use Tobacco Use Start: Unknown End: Patient is a former quit in 1995 Unknown smoker Recreational Drug Use Denies Drug Use Exercise Type/Frequency Exercises regularly Physical therapy twice weekly Allergies, Adverse Reactions, Alerts Active Allergies Reaction Severity Comments Date Lisinopril Hyperkalemia 11/29/2014 Metoprolol Known bradycardia 2nd degr HB 11/29/2014 Sulfa Antibiotics 04/03/2015 Bactrim 04/03/2015 Inactive Allergies NKDA 07/16/2013 Medications Active Medications [...] Am) Levalbuterol HCL 2 puffs as needed [facility], [place], CONTINUOUS P[employer]LING [employer] PICKLER HELPER-C 1.25mg/3ML Nebulizer Lyrica 1 by mouth three [...] Available Vital Signs Date Vital Result Comment 04/24/2019 10:13am Height 73 inches 6'1" Weight 260.00 lb Heart Rate 72 /min BP Systolic Sitting 152 mmHg BP Diastolic Sitting 76 mmHg Respiratory Rate 24 /min BMI (Body Mass Index) 34.3 kg/m2 03/12/2019 8:48am Height 73 inches 6'1" Heart Rate 75 /min BP Systolic Sitting 124 mmHg BP Diastolic Sitting 72 mmHg Pain Level 7 O2 % BldC Oximetry 97 % Results Test Date Facility Test Result H/L Range Note Laboratory test 02/10/2019 [facility] Erythrocyte Sed 68 mm/Hr High 0-19 [address] [place] [address] [phone] C Reactive Protein 14.64 mg/L High <8.01 2 CBC Auto 02/10/2019 [facility] White Blood 5.8 10^3/uL Normal 3.5-10.[address] [place] [address] [phone] Red Blood Count 3.94 10^6/uL Low 4.18-5.48 [...] Blood Cells % 0.1 Comp Metabolic 02/10/2019 [facility] Sodium 139 mmol/L Normal 135-[address] [place] [address] [phone] Potassium 4.3 mmol/L Normal 3.5-5.0 Chloride 98 [...] dialysis) Procedures Date Code Description Status 01/17/2019 33715 Pace Maker Eval W/Iterative Adjment Dual Lead Completed 01/17/2019 19186 Pace Maker Eval W/Iterative Adjment Dual Lead Completed 02/08/2012 10775112 Colonoscopy Completed Medical Devices Description No Information Available Encounters Type Date Location Provider Dx Diagnosis Office Visit 03/12/2019 Rheumatology Emmanuel Rosenthal, M05.79 [place] arthritis w 9:00a Services [facility] site w/o org/sys involv G62.9 Polyneuropathy, unspecified N18.9 Chronic kidney disease, unspecified R29.6 Repeated falls Office 03/08/2019 [facility] Donnie T40.2x1A Poisoning by oth Visit 11:58a Assoc,[place] opioids, accidental Hospitalists (unintentional), init J96.91 Respiratory failure, unspecified with hypoxia R29.6 Repeated falls Office 03/07/2019 [facility] Donnie T40.2x1A Poisoning by oth Visit 11:58a Assoc,ESTRELLA Ca opioids, accidental Hospitalists (unintentional), init G89.29 Other chronic pain R53.1 Weakness R29.6 Repeated falls Office 03/06/2019 [facility] T40.2x1A Poisoning by oth Visit 11:57a Assoc,pc Amrik, CONTINUOUS P[employer] PICKLER HELPER opioids, accidental Hospitalists (unintentional), init E11.9 Type 2 diabetes mellitus without complications G89.29 Other chronic pain J44.9 Chronic obstructive pulmonary disease, unspecified I10 Essential (primary) hypertension Office 03/05/2019 [facility] T40.2x1A Poisoning by oth Visit 11:57a Assoc,pc Amrik, CONTINUOUS P[employer] PICKLER HELPER opioids, accidental Hospitalists (unintentional), init E11.9 Type 2 diabetes mellitus without complications J44.9 Chronic obstructive pulmonary disease, unspecified I10 Essential (primary) hypertension Office 03/04/2019 [facility] T40.2x1A Poisoning by oth Visit 11:57a Assoc,pc Amrik, CONTINUOUS P[employer] PICKLER HELPER opioids, accidental Hospitalists (unintentional), init G89.29 Other chronic pain E11.9 Type 2 diabetes mellitus without complications J44.9 Chronic obstructive pulmonary disease, unspecified Office 03/03/2019 [facility] T40.2x1A Poisoning by oth Visit 11:56a Assoc,pc Amrik, CONTINUOUS P[employer] PICKLER HELPER opioids, accidental Hospitalists (unintentional), init R29.6 Repeated falls G89.29 Other chronic pain E11.9 Type 2 diabetes mellitus without complications Office 03/02/2019 [facility] Meg T40.2x1A Poisoning by oth Visit 11:56a Assoc,pc Guerline opioids, accidental Hospitalists Azam CONTINUOUS PICKLING [employer] PICKLER HELPER (unintentional), init R29.6 Repeated falls I10 Essential (primary) hypertension J44.9 Chronic obstructive pulmonary disease, unspecified Office Visit 03/01/2019 11:54a Intensivists Pratik Rosas, J96.21 Acute and chronic MD respiratory failure with hypoxia G93.40 Encephalopathy, unspecified R53.1 Weakness R29.6 Repeated falls Office 02/28/2019 [facility] T40.2x1A Poisoning by oth Visit 11:54a Assoc,syed Prado D.O. opioids, accidental Hospitalists (unintentional), init J96.90 Respiratory failure, unsp, unsp w hypoxia or hypercapnia R40.0 Somnolence R29.6 Repeated falls Office Visit 02/20/2019 1:00p Rheumatology Emmanuel Rosenthal M05.79 [place] arthritis [facility] site w/o org/sys involv G62.9 Polyneuropathy, unspecified D64.9 Anemia, unspecified N18.9 Chronic kidney disease, unspecified Office Visit 01/17/2019 Magdi Hogan I44.1 Atrioventricular 3:00p Cardiology Of [place] Agustin block, second degree [facility] Z95.0 Presence of cardiac pacemaker I25.10 Athscl heart disease of [place] coronary artery w/o ang pctrs Assessments Date Code Description Provider 04/24/2019 E11.42 Type 2 diabetes mellitus with diabetic Yasmani Peres M.D. polyneuropathy 04/24/2019 R29.6 Repeated falls Yasmani Peres M.D. 03/12/2019 M05.79 Rheumatoid arthritis with rheumatoid Emmanuel Rosenthal M.D. [facility] 03/12/2019 G62.9 Polyneuropathy, unspecified Emmanuel Rosenthal [...] Poisoning by other opioids, accidental Marylou Amrik, CONTINUOUS P[employer] PICKLER HELPER (unintentional), initial encounter 03/06/2019 E11.9 Type 2 diabetes mellitus without Marylou Amrik, CONTINUOUS [employer] PICKLER HELPER complications 03/06/2019 G89.29 Other chronic pain Marylou Amrik, CONTINUOUS [employer] PICKLER HELPER 03/06/2019 J44.9 Chronic obstructive pulmonary disease, Marylou Amrik, CONTINUOUS P[employer] PICKLER HELPER unspecified 03/06/2019 I10 Essential (primary) hypertension Marylou Amrik, CONTINUOUS P[employer] PICKLER HELPER 03/05/2019 T40.2x1A Poisoning by other opioids, accidental Marylou Amrik, CONTINUOUS P[employer]LING [employer] PICKLER HELPER (unintentional), initial encounter 03/05/2019 E11.9 Type 2 diabetes mellitus without Marylou Amrik, CONTINUOUS P[employer] PICKLER HELPER complications 03/05/2019 J44.9 Chronic obstructive pulmonary disease, Marylou Amrik, CONTINUOUS P[employer] PICKLER HELPER unspecified 03/05/2019 I10 Essential (primary) hypertension Marylou Amrik, CONTINUOUS P[employer] PICKLER HELPER 03/04/2019 T40.2x1A Poisoning by other opioids, accidental Marylou Amrik, CONTINUOUS PICKLING [employer] PICKLER HELPER (unintentional), initial encounter 03/04/2019 G89.29 Other chronic pain Marylou Amrik, CONTINUOUS P[employer] PICKLER HELPER 03/04/2019 E11.9 Type 2 diabetes mellitus without Marylou Amrik, CONTINUOUS P[employer] PICKLER HELPER complications 03/04/2019 J44.9 Chronic obstructive pulmonary disease, Marylou Amrik, CONTINUOUS P[employer]LING [employer] PICKLER HELPER unspecified 03/03/2019 T40.2x1A Poisoning by other opioids, accidental Marylou Amrik, CONTINUOUS PICKLING [employer] PICKLER HELPER (unintentional), initial encounter 03/03/2019 R29.6 Repeated falls Marylou Amrik, CONTINUOUS P[employer]LING [employer] PICKLER HELPER 03/03/2019 G89.29 Other chronic pain Marylou Amrik, CONTINUOUS P[employer]LING [employer] PICKLER HELPER 03/03/2019 E11.9 Type 2 diabetes mellitus without Marylou Amrik, CONTINUOUS P[employer]LING [employer] PICKLER HELPER complications 03/02/2019 T40.2x1A Poisoning by other opioids, accidental Meg Nascimento, CONTINUOUS PICKLING LINE PICKLER HELPER (unintentional), initial encounter 03/02/2019 R29.6 Repeated falls Meg Nascimento, LAURA 03/02/2019 I10 Essential (primary) hypertension Meg Nascimento, LAURA 03/02/2019 J44.9 Chronic obstructive pulmonary disease, Meg Nascimento, CONTINUOUS PICKLING [employer] PICKLER HELPER unspecified 03/01/2019 J96.21 Acute and chronic respiratory failure Pratik Rosas MD with hypoxia 03/01/2019 G93.40 Encephalopathy, unspecified Pratik Rosas MD [...] Schedule 01/17/2019 I25.10 Atherosclerotic heart disease of [place] Otoniel Agustin M.D. coronary artery with Plan of Treatment Future Appointment(s):05/02/2019 10:15 am - Norman Marie M.D. at [facility]05/29/2019 1:20 pm - Emmanuel Rosenthal M.D. at [facility]07/11/2019 2:30 pm - Otoniel Agustin M.D. at [facility]07/11/2019 2:00 pm - Ica Pacer Schedule at [facility]04/24/2019 - Yasmani Peres M.D.E11.42 Type 2 diabetes mellitus with diabetic polyneuropathyFollow up:PRNR29.6 Repeated falls Functional Status Description No Information Available Mental Status Description No Information Available Referrals Description No Information Available
--- NOTE | 2019-06-21 08:32 | ED ---
Complex/Multi-Sys Presentation - HPI Summary HPI Summary: This patient is a 69 year old M [facility] accompanied by his with a chief complaint of urinary incontinence since this morning. This morning , pt wet his bed and was poorly responsive. Pt last took his pain medication at 1300 yesterday. The patient rates the pain 0/10 in severity. Symptoms aggravated by nothing. Symptoms alleviated by nothing. Patient reports normal appetite, fever, chills. Pt denies any erythema of eyes, sore throat, CP, SOB, cough, abdominal pain, N/V, diarrhea, dysuria, hematuria, myalgia, edema, rash, neck pain, or dizziness. Pt has hx of ND, CHF, COPD, diabetes, rheumatoid arthritis. - History Of Current Complaint Time Seen by Provider: 06/21/19 08:18 Hx Obtained From: Patient, Family/Caterer Helper - Onset/Duration: Sudden Onset, Lasting Hours, Still Present Timing: Constant Severity Currently: Mild Severity Initially: Mild Aggravating Factor(s): nothing Alleviating Factor(s): nothing Associated Signs And Symptoms: Positive: Fever, Other - positive - urinary incontinence, normal appetite, chills. Pt denies any erythema of eyes, sore throat, abdominal pain, dysuria, hematuria, myalgia, rash, neck pain. Negative : Dizziness, SOB, Cough, Chest Pain, Edema, Nausea, Vomiting, Diarrhea - Allergies/Home Medications Allergies/Adverse Reactions: Allergies Allergy/AdvReac Type Severity Reaction Status Date / Time minocycline Allergy Severe Difficulty Verified 06/15/19 11:31 Breathing lisinopril Allergy Unknown Verified 06/15/19 11:31 Reaction Details metoprolol Allergy Unknown Verified 06/15/19 11:31 Reaction Details clopidogrel AdvReac Severe Made Verified 06/15/19 11:31 opiate effect more intense Sulfa (Sulfonamide AdvReac Rash Verified 06/15/19 11:31 Antibiotics) Home Medications: Home Medications Budesonide NEB* [Pulmicort NEB*] 0.5 mg INH BID PRN 06/21/19 [History Confirmed 06/21/19] Docusate CAP* [Colace Cap*] 100 mg PO BID PRN 06/21/19 [History Confirmed ] Guaifen/Dextromethorphan/PE [Tussin Cf Multi-Symptom Cold] 10 ml PO Q4H PRN [History Confirmed 06/21/19] Levalbuterol HCl [Xopenex] 1.25 mg INH TID PRN 06/21/19 [History Confirmed 06/21] Levalbuterol HFA INHALER* [Xopenex Hfa Inhaler*] 2 puff INH QID PRN 06/21/19 [ History Confirmed 06/21/19] Nitroglycerin TAB 0.4 MG* 0.4 mg SL Q5M PRN MDD 3 tabs 06/21/19 [History Confirmed 06/21/19] celeCOXIB CAP* [CeleBREX CAP*] 200 mg PO BID 06/21/19 [History Confirmed ] l Gasseri/B Bifidum/B Longum [Classical Connection] 1 cap PO DAILY 06/21/19 [ History Confirmed 06/21/19] PMH/Surg Hx/FS Hx/Imm Hx Previously Healthy: No Endocrine/Hematology History: Reports: Hx Diabetes, Hx Anemia - HX OF Denies: Hx Thyroid Disease Cardiovascular History: Reports: Hx Coronary Artery Disease, Hx Hypercholesterolemia, Hx Hypertension, Hx Pacemaker/ICD - 8/, Hx Peripheral Vascular Disease, Other Cardiovascular Problems/Disorders - BYPASS SURGERY Denies: Hx Aneurysm, Hx Angina, Hx Cardiac Arrest, Hx Cardiomegaly, Hx Congestive Heart Failure, Hx Rheumatic Fever, Hx Valvular Heart Disease Respiratory History: Reports: Hx Asthma, Hx Chronic Bronchitis, Hx Chronic Obstructive Pulmonary Disease (COPD), Hx Lung Cancer - RLL, Hx Pneumonia, Other Respiratory Problems/Disorders - COPD Denies: Hx Pulmonary Edema, Hx Pulmonary Embolism, Hx Seasonal Allergies, Hx Sleep Apnea GI History: Reports: Hx Gastroesophageal Reflux Disease - CONTROL WITH MED Denies: Hx Cirrhosis, Hx Crohn's Disease, Hx Irritable Bowel, Hx Jaundice, Hx Ulcer History: Reports: Hx Acute Renal Failure, Hx Benign Prostatic Hyperplasia, Other Problems/Disorders - CKD Denies: Hx Dialysis, Hx Renal Disease Musculoskeletal History: Reports: Hx Arthritis - RA AND OSTEOARTHRITIS, Hx Rheumatoid Arthritis, Hx Back Problems - siatica, Other Musculoskeletal History - HX SCIATICA Sensory History: Reports: Hx Cataracts, Hx Contacts or Glasses, Other Sensory Impairments - Neuropathy Denies: Hx Eye Injury, Hx Glaucoma, Hx Hearing Aid, Hx Hearing Problem Opthamlomology History: Reports: Hx Cataracts, Hx Contacts or Glasses, Other Sensory Impairments - Neuropathy Denies: Hx Eye Injury, Hx Glaucoma Neurological History: Denies: Hx Dementia, Hx Developmental Delay, Hx Headaches, Hx Migraine, Hx Nerve Disease, Hx Seizures, Hx Spinal Cord Injury, Hx Transient Ischemic Attacks (TIA), Other Neuro Impairments/Disorders Psychiatric History: Reports: Hx Depression Denies: Hx Panic Disorder - Cancer History Cancer Type, Location and Year: R Lung [address] Lindsay - dx and then not present Hx Chemotherapy: No - Surgical History Surgical History: Yes Surgery Procedure, Year, and Place: CABG -5 1994, STRONG. Hernia Repair, [facility]. Right foot 4th toe joint replacements,. MULTIPLE TOE AMPUTATIONS, [facility]. 2010 BILAT CATARACT, [facility]. 05/2015 Partial Amputation of Left Foot at [facility], by Dr. Arce. 06/2015 LEFT STUMP REVISION OF LEFT FOOT AMPUTATION, [facility] Hx Anesthesia Reactions: No - Immunization History Date of Tetanus Vaccine: unsure Date of Influenza Vaccine: 2011 Infectious Disease History: No Infectious Disease History: Reports: Hx of Known/Suspected MRSA Denies: Hx Clostridium Difficile, Hx Hepatitis, Hx Human Immunodeficiency Virus (HIV), Hx Shingles, Hx Tuberculosis, Hx Known/Suspected VRE, Hx Known/ Suspected VRSA, History Other Infectious Disease, Traveled Outside the [place] in Last 30 Days - Family History Known Family History: Negative: Hypertension - Social History Alcohol Use: None Hx Substance Use: No Substance Use Type: Reports: None Substance Use Comment - Amount & Last Used: Prescribed - oxycodone Hx Tobacco Use: Yes - 1995 Smoking Status (MU): Former Smoker Type: Cigarettes Amount Used/How Often: 2 PPD Length of Time of Smoking/Using Tobacco: 20 YEARS Have You Smoked in the Last Year: No Review of Systems Constitutional: Other - positive - normal appetite Positive: Fever, Chills Negative: Erythema Negative: Sore Throat Negative: Chest Pain Negative: Shortness Of Breath, Cough Negative: Abdominal Pain, Vomiting, Diarrhea, Nausea Positive: incontinence - urinary. Negative: dysuria, hematuria Musculoskeletal: Other - negative - neck pain Negative: Myalgia, Edema Negative: Rash Neurological: Other - negative - dizziness All Other Systems Reviewed And Are Negative: Yes Physical Exam - Summary Physical Exam Summary: Constitutional: Well-developed, Well-nourished, Alert. (-) Distressed. Responsive to loud of loud verbal stimulus Skin: Warm, Dry HENT: Normocephalic; Atraumatic. Dry oral mucosa Eyes: Conjunctiva normal. pinpoint pupils. Neck: Musculoskeletal ROM normal neck. (-) JVD, (-) Stridor, (-) Tracheal deviation Cardio: Rhythm regular, rate normal, Heart sounds normal; Intact distal pulses; The pedal pulses are 2+ and symmetric. Radial pulses are 2+ and symmetric. (-) Murmur Pulmonary/Chest wall: Effort normal. (-) Respiratory distress, (-) Wheezes, (-) Rales. Sonorous respirations Abd: Soft, (-) tenderness, (-) Distension, (-) Guarding, (-) Rebound GIGU: strong urine odor Musculoskeletal: (-) Edema Lymph: (-) Cervical adenopathy Neuro: Alert, Oriented x3 Psych: Mood and affect Normal Triage Information Reviewed: Yes Vital Signs On Initial Exam: Initial Vitals Temp Pulse Resp BP Pulse Ox 102 F 96 23 132/65 96 06/21/19 08:12 06/21/19 08:12 06/21/19 08:12 06/21/19 08:12 06/21/19 08:12 Vital Signs Reviewed: Yes Procedures - Sedation Patient Received Moderate/Deep Sedation with Procedure: No - Intubation Tube Size (cm): 7.5 Diagnostics - Vital Signs Vital Signs Temp Pulse Resp BP Pulse Ox 06/21/19 08:12 102 F 96 23 132/65 96 - Laboratory Result Diagrams: 06/21/19 08:35 06/21/19 08:35 Lab Statement: Any lab studies that have been ordered have been reviewed, and results considered in the medical decision making process. - Radiology CXR Radiology Interpretation Completed By: Radiologist Summary of Radiographic Findings: IMPRESSION: FINDINGS SUGGESTIVE OF CONGESTIVE HEART FAILURE. These findings were reviewed by Dr. Singh. - CT Brain CT Interpretation Completed By: Radiologist Summary of CT Findings: IMPRESSION: 1. No acute intracranial abnormality. 2. Mild cerebral volume loss. These findings were reviewed by Dr. Singh. - EKG 0842 Cardiac Rate: NL - 95 BPM Summary of EKG Findings: EKG at 0842 shows 95 BPM, atrial-sensed ventricular paced rhythm, no STEMI Complex Multi-Symp Course/Dx Course Of Treatment: This patient is a 69 year old M presenting to [facility] accompanied by his with a chief complaint of urinary incontinence since this morning. This morning, pt wet his bed and was poorly responsive. Pt last took his pain medication at 1300 yesterday. The patient rates the pain 0/10 in severity. Symptoms aggravated by nothing. Symptoms alleviated by nothing. Patient reports normal appetite, fever, chills. Pt denies any erythema of eyes, sore throat, CP, SOB, cough, abdominal pain, N/V, diarrhea, dysuria, hematuria, myalgia, edema, rash, neck pain, or dizziness. Pt has hx of ND, CHF, COPD, diabetes, rheumatoid arthritis. Physical exam shows sonorous respirations, pt is responsive to loud of loud verbal stimulus, dry oral mucosa, strong urine odor, pinpoint pupils. Lab results show WBC 11.4, RBC 4.02, Hgb 10.5, Hct 32, MCH 26, RDW 16, absolute neuts 8.9, absolute monos 1.1, BUN 44, creatinine 2.01 , BUN/creatinine ratio 21.9, glucose 176, trop 7.31, albumin/globulin ratio 0.9 , urine protein 1+ A, urine ketones trace A, Ur leukocyte esterase 1+ A, Ur squamous epith cells present A. EKG at 0842 shows 95 BPM, atrial-sensed ventricular paced rhythm, no STEMI. CXR IMPRESSION: FINDINGS SUGGESTIVE OF CONGESTIVE HEART FAILURE. Brain CT IMPRESSION: 1. No acute intracranial abnormality. 2. Mild cerebral volume loss. During ED course, pt was given Zithromax, Narcan, fluids, Rocephin. At 1040, Dr. Singh discusses pt's case with Dr. Bui. I consulted with the compliance associate who recommends intubation for airway protection. - Diagnoses Provider Diagnoses: Sepsis - Physician Notifications Discussed Care Of Patient With: Maricarmen Bui Time Discussed With Above Provider: 10:40 Instructed by Provider To: Other - At 1040, Dr. Singh discusses pt's case with Dr. Bui Discharge ED - Sign-Out/Discharge Documenting (check all that apply): Patient Departure - admit - Discharge Plan Condition: Stable Disposition: ADMITTED TO [facility] Referrals: Deonte Masters MD [Primary Care Provider] - - Attestation Statements Document Initiated by Scribe: Yes Documenting Scribe: Tomás Lopez Provider For Whom Scribe is Documenting (Include Credential): Dr. Bhupendra Singh MD Scribe Attestation: Tomás Green, scribed for Dr. Bhupendra Singh MD on 06/21/19 at 1150. Status of Scribe Document: Ready
[2019-06-21] MEDS ORDERED: Naloxone* 0.4 MG/ML 1 ML VIAL IV PUSH ONE ×2 (08:33→09:31)
[2019-06-21] MEDS ORDERED: cefTRIAXone(*) 1 GM in NS 0.9% 50 ML* 50 ML IVPB ONE (08:34)
[2019-06-21] MEDS ORDERED: Azithromycin 500 mg/250 ml NS 500 MG/250 ML BAG IVPB ONE (08:34)
[2019-06-21] MEDS: NS 0.9% 1000 ML** 3,000 ML IV ONE ×4 (08:40→13:04)
[2019-06-21 08:41] LABS: Urine Appearance Clear; Urine Bilirubin Negative (Negative); Urine Blood Negative (Negative); Urine Color Yellow; Urine Glucose Negative (Negative); Urine Ketones Trace (Negative); Urine Nitrite Negative (Negative); Urine Protein 1+(30 mg/dL) (Negative); Urine Specific Gravity 1.015 (1.010-1.030); Urine Urobilinogen Negative (Negative)
[2019-06-21 08:49] LABS: ABS Lymphocytes 1.3 10^3/ul (1.0-4.8); ABS Monocytes 1.1 10^3/ul (0-0.8); ABS Neutrophils 8.9 10^3/ul (1.5-7.7); Hematocrit 32 % (42-52); Hemoglobin 10.5 g/dL (14.0-18.0); Lymphocyte % 11.8 %; Mean Corpuscular HGB Conc 33 g/dL (31-36); Mean Corpuscular Hemoglobin 26 pg (27-31); Mean Corpuscular Volume 80 fL (80-94); Mean Platelet Volume 7.6 fL (7.4-10.4); Platelet Count 159 10^3/uL (150-450); Red Blood Count 4.02 10^6 /uL (4.18-5.48); Red Cell Distribution Width 16 % (10-15); White Blood Count 11.4 10^3/uL (3.5-10.8)
[2019-06-21 08:55] LABS: Urine Bacteria Absent (Absent); Urine Red Blood Cell Trace(0-2/hpf) (Absent); Urine Squamous Epithelial Cell Present (Absent); Urine White Blood Cell Trace(0-5/hpf) (Absent)
[2019-06-21 09:04] LABS: ALT 13 U/L (7-52); AST 31 U/L (13-39); Albumin 3.3 g/dL (3.2-5.2); Albumin/Globulin Ratio 0.9 (1-3); Alkaline Phosphatase 47 U/L (34-104); Anion Gap 6 mmol/L (2-11); BUN/Creatinine Ratio 21.9 (8-20); Blood Urea Nitrogen 44 mg/dL (6-24); CO2 Carbon Dioxide 32 mmol/L (22-32); Calcium 9.5 mg/dL (8.6-10.3); Chloride 102 mmol/L (101-111); EGFR African American 40.1 (>60); EGFR Non-African American 33.1 (>60); Globulin 3.6 g/dL (2-4); Glucose 176 mg/dL (70-100); Potassium 4.3 mmol/L (3.5-5.0); Sodium 140 mmol/L (135-145); Total Protein 6.9 g/dL (6.4-8.9)
[2019-06-21 09:07] LABS: Troponin I 7.31 ng/mL (<0.03)
[2019-06-21] MEDS ORDERED: Acetaminophen SUPP* 650 MG SUPP PR ONE (09:16)
[2019-06-21 09:18] LABS: Alcohol < 10 mg/dL (<10)
[2019-06-21] MEDS ORDERED: Naloxone* 0.4 MG/ML 10 ML VIAL ONE (09:25)
[2019-06-21] MEDS ORDERED: Aspirin SUPP* 300 MG PR ONE (10:33)
[2019-06-21] MEDS ORDERED: Heparin DRIP 25,000 UNITS(*) 25,000 UNITS/500 ML BAG IV SCH (10:45)
[2019-06-21] MEDS: Propofol* 100 ML IV ONE ×2 (11:21→17:12)
[2019-06-21] MEDS ORDERED: Midazolam* 1 MG/ML 10 ML VIAL (10 MG) ONE (11:25)
[2019-06-21] MEDS ORDERED: Etomidate* 2 MG/ML 20 ML VIAL (40 MG) ONE (11:25)
[2019-06-21] MEDS ORDERED: Succinylcholine* 20 MG/ML 10 ML VIAL ONE (11:25)
[2019-06-21] MEDS ORDERED: Piperacillin/Tazobac ADVAN(*) 3.375 GM in NS 0.9% 100 ML* 100 ML IVPB ONE (11:31)
[2019-06-21] MEDS ORDERED: Zosyn per Pharmacy* NOTE FOLLOW UP SCH (12:00)
[2019-06-21 12:09] LABS: Influenza A Molecular NEGATIVE (Negative); Influenza B Molecular NEGATIVE (Negative)
[2019-06-21] MEDS ORDERED: Perflutren Lipid Microsphere* 3 ML VIAL ONE (12:44)
[2019-06-21] MEDS ORDERED: Heparin VIAL(*) 5000 UNITS/ML VIAL (FIVE THOUSAND) ONE (12:45)
[2019-06-21 13:17] LABS: ABS Lymphocytes 0.8 10^3/ul (1.0-4.8); ABS Monocytes 0.8 10^3/ul (0-0.8); ABS Neutrophils 7.9 10^3/ul (1.5-7.7); Hematocrit 28 % (42-52); Hemoglobin 9.1 g/dL (14.0-18.0); Lymphocyte % 8.7 %; Mean Corpuscular HGB Conc 33 g/dL (31-36); Mean Corpuscular Hemoglobin 27 pg (27-31); Mean Corpuscular Volume 82 fL (80-94); Mean Platelet Volume 7.7 fL (7.4-10.4); Platelet Count 120 10^3/uL (150-450); Red Cell Distribution Width 16 % (10-15); White Blood Count 9.6 10^3/uL (3.5-10.8)
[2019-06-21 13:30] LABS: EGFR African American 45.5 (>60); EGFR Non-African American 37.6 (>60)
[2019-06-21] MEDS ORDERED: Heparin VIAL(*) 5000 UNITS/ML VIAL (FIVE THOUSAND) SUBCUT PRN (13:55)
--- NOTE | 2019-06-21 14:33 | ECHO ---
*[facility]* [place] [address] Fax #: [phone] Transthoracic Echocardiogram Patient: Emmanuel Knox : 1950 Study Date: 06/21/2019 Age: 69 Gender: M HR: 82 bpm Height: 73 in /185.4 cm BSA: 2.56 m^2 Weight: 299.4 lb /136.1 kg BMI: 39.6 kg/m^2 *Nuclear Medicine Technologist: Lyubov Correia [facility] *Referring Physician: * Chapito EspinozaReading Physician: * Jung Espinoza MD Indications: Congestive Heart Failure. History: Coronary artery disease. Congestive heart failure. Chronic obstructive pulmonary disease. PMH: Myocardial infarction. Risk factors: Hypertension. Diabetes mellitus. Dyslipidemia. Labs, prior tests, procedures, and surgery: ICD system implantation. Coronary artery bypass grafting. Conclusions Summary: - Left ventricle: The cavity size is normal. Wall thickness is mildly increased. Systolic function is at the lower limits of normal. The estimated ejection fraction is 50-55%. - Regional wall motion abnormality: Moderate hypokinesis of the basal inferoseptal and basal inferior myocardium; mild hypokinesis of the mid inferolateral myocardium. - Right ventricle: The cavity size is mildly dilated. Systolic function is moderately reduced. - Ventricular septum: There is abnormal interventricular septal wall motion consistent with an RV pacemaker. - Left atrium: The atrium is mildly dilated. - Pulmonary arteries: Systolic pressure is within the normal range. - No signifcant valvular abnormalities noted. Study data: Transthoracic echocardiogram. Procedure: Transthoracic echocardiography was performed. Image quality was adequate. The study was technically limited due to Patient on ventilator and COPD. Intravenous Definity , 3 mlswas administered. Image enhancement administered by [employer]. Complete 2D, spectral Doppler, and color flow Doppler. Location: ICU Patient status: Inpatient. Patient room number: 6. Rhythm: Paced rhythm. Findings Left ventricle: The cavity size is normal. Wall thickness is mildly increased. Systolic function is at the lower limits of normal. The estimated ejection fraction is 50-55%. Regional wall motion abnormalities: Moderate hypokinesis of the basal inferoseptal and basal inferior myocardium; mild hypokinesis of the mid inferolateral myocardium. There is no consistent Doppler evidence of clinically significant diastolic dysfunction. Right ventricle: The cavity size is mildly dilated. Systolic function is moderately reduced. Ventricular septum: There is abnormal interventricular septal wall motion consistent with an RV pacemaker. Left atrium: The atrium is mildly dilated. Right atrium: The atrium is normal in size. Mitral valve: The Mitral valve annulus appears calcified. The leaflets are mildly thickened. There is no evidence of stenosis. There is mild regurgitation. Aortic valve: The valve is trileaflet. The leaflets are mildly thickened. There is no evidence of stenosis. There is no significant regurgitation. Tricuspid valve: The leaflets are normal thickness. There is no evidence of stenosis. There is trace regurgitation. Pulmonic valve: The leaflets are normal thickness. There is no evidence of stenosis. There is mild regurgitation. Aorta: Aortic root: The aortic root is appears normal. Aortic arch: The aortic arch is mildly dilated. Pericardium: There is no significant pericardial effusion. Pulmonary arteries: Not well visualized. Systolic pressure is within the normal range. Systemic veins: Inferior vena cava: Not well visualized. Measurements Left ventricle Value Ref Mitral valve Value Ref JUAQUIN, LAX 5.0 cm 4.2 - 5.8 Peak E 0.87 m/sec ----- ESD, LAX 3.9 cm 2.5 - 4.0 Peak A 1.24 m/sec ----- FS, LAX (L) 21 % 25 - 43 Decel time 87 ms ----- PW, ED, LAX (H) 1.2 cm 0.6 - 1.0 PHT 29 ms ----- EF (L) 43 % 52 - 72 Mean grad, D 4.0 mm Hg ----- Peak grad, D 9.0 mm Hg ----- LVOT Value Ref Peak E/A ratio 0.7 ----- Peak toney, S 0.82 m/sec MVA, PHT 7.6 cm^2 ----- Mean grad, S 1 mm Hg Pulmonic valve Value Ref Ventricular septum Value Ref Peak v, S 0.85 m/sec ----- IVS, ED (H) 1.2 cm 0.6 - 1.0 Peak grad, S 3.0 mm Hg ----- Right ventricle Value Ref Tricuspid valve Value Ref JUAQUIN, LAX 2.9 cm TR peak v 2.32 m/sec <=2.8 Pressure, S 30 mm Hg Peak RV-RA grad, S 22 mm Hg ----- Left atrium Value Ref Aortic root Value Ref AP dim, ES (H) 4.40 cm 3.00 - 4.00 Root diam 3.3 cm <4.6 ML dim, A4C 4.3 cm SI dim, A4C 4.7 cm Ascending aorta Value Ref Vol/bsa, ES, A/L 27 ml/m^2 16 - 34 AAo AP diam, S 3.1 cm ----- Right atrium Value Ref Aortic arch Value Ref SI dim, ES 5.2 cm 3.4 - 5.3 Arch diam 3.7 cm ----- ML dim, ES, A4C 3.8 cm 2.6 - 4.4 Estimated RAP 8 mm Hg Decending aorta Value Ref Cesar peak toney 0.85 m/sec ----- Aortic valve Value Ref Grace diam, ED 2.2 cm Pulmonary artery Value Ref Peak v, S 1.15 m/sec Pressure, S 27.0 mm Hg ----- VTI, S 24.3 cm Mean grad, S 3.0 mm Hg Peak grad, S 5.0 mm Hg Legend: (L) and (H) natacha values outside specified reference range. Prepared and electronically signed by Jung Espinoza MD 06/21/2019 14:33
--- NOTE | 2019-06-21 14:40 | CONSULT ---
Subjective Date of Service: 06/21/19 Interval History: Date of admission and consult 06/21/2019 Service: [employer] Dean: Dr. Agustin PCP: Dr. Masters CC: Altered mental status Reason for consult: Elevated troponin HPI Mr. Knox is a 69 year old man with history as below. He is currently intubated and history taken from and chart. Yesterday afternoon developed what sounds like rigors. There were no complains of chest discomfort or change in breathing. He is mostly in a wheelchair. This morning was incontinent and poor responsive. 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 Personal Habits: Smoking: Patient is a former smoker - quit in 1995 Denies alcohol use. Drug Use: Denies Drug Use. FH: Arthritis, cousin with Ra; mother has arthritis. Medications Active Medications: Heparin Sodium (Porcine) (Heparin Vial(*)) 0 units SUBCUT .PER PROTOCOL PRN PRN Reason: PER PROTOCOL Propofol (Diprivan*) 100 mls @ 8.981 mls/hr IV .PER PROTOCOL ONE; Protocol Stop: 06/21/19 22:16 Last Admin: 06/21/19 11: Dose: 8.981 mls/hr Sodium Chloride (Ns 0.9% 1000 Ml) 3,000 mls @ 50 mls/hr IV .PER RATE ONE Stop: 06/23/19 20:33 Last Admin: 06/21/19 13:04 Dose: 50 mls/hr Piperacillin Sod/Tazobactam (Sod 3.375 gm/ Sodium Chloride) 100 mls @ 25 mls/ hr IVPB Q8H [facility] Pharmacy Consult (Zosyn Per Pharmacy*) 1 note FOLLOW UP .ZOSYN PER PHARMACY [facility] Home Medications: Aspirin EC TAB* [Ecotrin EC Low Dose 81 MG*] 81 mg PO DAILY #0 tab.ec 10/17/15 [ Rx Confirmed 06/21/19] Mirtazapine TAB* [Remeron TAB*] 30 mg PO BEDTIME tab 10/17/15 [Rx Confirmed ] Insulin GLARGINE(*) [Lantus(*)] 33 units SUBCUT BEDTIME 01/21/16 [History Confirmed 06/21/19] Tamsulosin CAP* [Flomax CAP*] 0.4 mg PO DAILY 03/26/16 [History Confirmed ] Tiotropium CAPSULE (NF) [Spiriva CAPSULE (NF)] 1 cap.inh INH DAILY 03/26/16 [ History Confirmed 06/21/19] Omeprazole CAP (NF) [Prilosec CAP* 20 MG] 20 mg PO DAILY 03/29/16 [History Confirmed 06/21/19] busPIRone TAB* [Buspar TAB*] 10 mg PO BID PRN 03/29/16 [History Confirmed ] Montelukast Sodium TAB* [Singulair 10 MG TAB*] 10 mg PO DAILY 04/09/16 [History Confirmed 06/21/19] oxyCODONE TAB* [Roxycodone TAB 5 mg*] 5 mg PO QID PRN 08/02/17 [History Confirmed 06/21/19] Budesonide/Formote 160/4.5(NF) [Symbicort 160/4.5 (NF)] 2 puff INH BID 11/02/17 [History Confirmed 06/21/19] Insulin LISPRO* [HumaLOG*] 6 units SUBCUT TID WITH MEALS 11/02/17 [History Confirmed 06/21/19] Pioglitazone TAB* [Actos TAB*] 15 mg PO DAILY 11/02/17 [History Confirmed ] Pregabalin CAP(*) [Lyrica CAP(*)] 50 mg PO TID 11/02/17 [History Confirmed 06/21] Sertraline* [Zoloft*] 25 mg PO DAILY 11/02/17 [History Confirmed 06/21/19] Simvastatin TAB(NF) [Zocor 20 MG (NF)] 20 mg PO DAILY 11/02/17 [History Confirmed 06/21/19] oxyCODONE SR TAB(*) [Oxycontin 10 mg (*)] 10 mg PO BID 02/09/18 [History Confirmed 06/21/19] Furosemide TAB* [Lasix TAB*] 80 mg PO DAILY 12/20/18 [History Confirmed 06/21/19 ] DOXYcycline CAP(*) [DOXYcycline 100MG CAP(*)] 100 mg PO BID #60 cap 03/08/19 [ Rx Confirmed 06/21/19] Budesonide NEB* [Pulmicort NEB*] 0.5 mg INH BID PRN 06/21/19 [History Confirmed 06/21/19] Docusate CAP* [Colace Cap*] 100 mg PO BID PRN 06/21/19 [History Confirmed ] Guaifen/Dextromethorphan/PE [Tussin Cf Multi-Symptom Cold] 10 ml PO Q4H PRN [History Confirmed 06/21/19] Levalbuterol HCl [Xopenex] 1.25 mg INH TID PRN 06/21/19 [History Confirmed 06/21] Levalbuterol HFA INHALER* [Xopenex Hfa Inhaler*] 2 puff INH QID PRN 06/21/19 [ History Confirmed 06/21/19] Nitroglycerin TAB 0.4 MG* 0.4 mg SL Q5M PRN MDD 3 tabs 06/21/19 [History Confirmed 06/21/19] celeCOXIB CAP* [CeleBREX CAP*] 200 mg PO BID 06/21/19 [History Confirmed ] l Gasseri/B Bifidum/B Longum [[facility]] 1 cap PO DAILY 06/21/19 [ History Confirmed 06/21/19] Review of Systems - Measurements Intake and Output: Intake and Output Last 24 Hours 06/19/19 06/20/19 06/21/19 06/22/19 06:59 06:59 06:59 06:59 Intake Total 3050 Output Total 595 Balance 2455 Weight 258 lb 2.581 oz Intake: IV Fluids 3050 Output: [place] 595 - Review of Systems Review of Systems Statement: unobtainable due to intubated status Objective Vital Signs: Temp Pulse Resp BP Pulse Ox 99.0 F 75 19 114/54 98 06/21/19 13:15 06/21/19 13:15 06/21/19 14:00 06/21/19 13:15 06/21/19 13:15 Oxygen Devices in Use Now: Mechanical Ventilator Appearance: intubated, sedated Ears/Nose/Mouth/Throat: - - et tube in place Neck: Trachea Midline, - - uncertain jvp Respiratory: Symmetrical Chest Expansion and Respiratory Effort, - - transmitted breath sounds Cardiovascular: RRR, - - uncertain jvp, no significant murmur. sternotomy scar intact and right pectoral pacemaker in place Abdominal: - - obese, soft Extremities: - - trace edema, s/p bilateral lower foot amputation Skin: No Rash or Ulcers Neurological: - - sedated, intubated Laboratory Results: 06/21/19 12:55 06/21/19 12:55 APTT 34.7 seconds (26.0-38.0) 06/21/19 12:40 Total Bilirubin 0.60 mg/dL (0.2-1.0) 06/21/19 08:35 AST 31 U/L (13-39) 06/21/19 08:35 ALT 13 U/L (7-52) 06/21/19 08:35 Alkaline Phosphatase 47 U/L (34-104) 06/21/19 08:35 B-Natriuretic Peptide 672 pg/mL (<=100) H 06/21/19 08:35 Total Protein 6.9 g/dL (6.4-8.9) 06/21/19 08:35 Albumin 3.3 g/dL (3.2-5.2) 06/21/19 08:35 Globulin 3.6 g/dL (2-4) 06/21/19 08:35 Albumin/Globulin Ratio 0.9 (1-3) L 06/21/19 08:35 06/21/19 08:35 Troponin I 7.31 H* Diagnostic Imaging: Cardiac Testing: Pulse Volume Recording - (02/19/2016) [facility] JUAREZ values are compatible with claudication but are overall modestly improved when compared to the April JUAREZ. New since the previous JUAREZ is a reduction in amplitude of the volume pulse recording measured at the left ankle relative to the right. Cardiac Procedures: Pacemaker Implantation - (03/29/2016) Dual chamber pacer Med[employer]onic [id number] MRI device Cardiac Catheterization - (09/18/2013) Multi-Vessel Coronary Artery Bypass Grafting - (07/13/1996) CARRASCO to LAD, SVG to D1, SVG to OM1 and OM2, NOEMY to PDA. Cardiac Catheterization - (09/14/2013) LM: 50%, LAD: occluded, LCx: occluded, RCA: occluded mid vessel, CARRASCO to LAD: patent, NOEMY to PDA: patent, SVG to D1 : patent, SVG to OM1/OM2: patent nsr, v-paced Assessment/Plan Mr. Knox is a 69 year old man with multiple co-morbidities as above admitted with a type 2 PA in the setting of sepsis, LVEF low normal. All [place] vessels occluded, unlikely graft thrombosis given clinical presentation. - Restart home aspirin and statin (ordered) - Continue heparin gtt x 48 hours - is uncertain about plavix on allergy list will hold off on second anti- platelet for now can be re-evaluated later in hospital course - Metoprolol also listed as allergy would hold off on beta-kurtis for now can be re-evaluated later in hospital course - Add Ck-mb to troponin tonight (ordered) to better estimate infarct size in setting of CKD - Home care has been progressively more difficult for and will need sanitation worker cleaning equipment/department store manager involvement prior to discharge Thank you for allowing me to participate in the cardiovascular care of this patient. Please do not hesitate to contact me with questions or concerns
[2019-06-21 15:22] LABS: Troponin I 7.38 ng/mL (<0.03)
--- NOTE | 2019-06-21 15:31 | HP ---
ADMISSION HISTORY AND PHYSICAL: DATE OF ADMISSION: 06/21/19 REASON FOR ADMISSION: Altered mental status. HISTORY OF PRESENT ILLNESS: The patient is a 69-year-old white male with multiple medical problems, including coronary artery disease, type 2 diabetes, peripheral neuropathy, peripheral vascular disease (status post bilateral transmetatarsal amputations), lung CA (?), and rheumatoid arthritis, who is brought to the emergency department earlier today with altered mental status, rigors, and urinary incontinence. The patient also has a history of opiate abuse (documented at this hospital in January,), and received 2.4 mg of naloxone in the ED without effect. The patient was unresponsive in the ED, and was intubated for airway protection. HOME MEDICATIONS: 1. Nitroglycerin 0.4 mg sublingual p.r.n. chest pain. 2. OxyContin 10 mg twice daily. 3. Lispro insulin 6 units with meals. 4. Doxycycline 100 mg twice daily. 5. Lyrica 50 mg 3 times daily. 6. Aspirin 81 mg daily. 7. Flomax 0.4 mg daily. 8. Singulair 10 mg p.o. daily. 9. Remeron 30 mg p.o. at bedtime. 10. Roxicodone 5 mg 4 times daily p.r.n. pain. 11. Lantus insulin 33 units at bedtime. 12. Zocor 20 mg daily. 13. Zoloft 25 mg daily. 14. BuSpar 10 mg twice daily. 15. Prilosec 20 mg daily. 16. Celebrex 200 mg twice daily. 17. Spiriva capsule 1 inhalation daily. 18. Lasix 80 mg daily. DRUG ALLERGIES: Include MINOCYCLINE, LISINOPRIL, METOPROLOL, CLOPIDOGREL, SULFA. The latter produces a rash, while the reaction of the others is unknown. . SOCIAL HISTORY: The patient lives with his and there is no apparent history of smoking or alcohol abuse. REVIEW OF SYSTEMS: Not obtainable. PHYSICAL EXAMINATION GENERAL: The patient was unresponsive to verbal commands. VITAL SIGNS: Temp 99, blood pressure 114/54, heart rate 76 and regular, oxygen saturation 98% on mechanical ventilation with an FiO2 of 40%, respiratory rate 17 on mechanical ventilation. HEENT: Pupils were pinpoint and sluggishly reactive (after the naloxone). Corneas were intact bilaterally. There is no facial asymmetry. NECK: Not supple. LUNGS: There were coarse rhonchi heard anteriorly and occasional crackles on both sides posteriorly. CARDIAC: There is no murmur. ABDOMEN: Not distended. EXTREMITIES: Warm. Not cyanotic and not edematous. There were bilateral metatarsal amputations old in both feet. DIAGNOSTIC STUDIES/LAB DATA: White count was 11.4, hemoglobin 10.5, hematocrit 32, platelet count 159. Sodium, potassium, chloride were normal. BUN 44, creatinine 2.01 with a repeat creatinine of 1.80. Troponin I was 7.31. Beta-natriuretic peptide was 672. Glucose is 176. Chest x-ray showed enlarged cardiac silhouette with vascular congestion in both lungs. An EKG showed a paced rhythm with a left bundle-branch block pattern. Urine showed 1+ leukocyte esterase, trace white cells, trace red cells, urine protein 1+. IMPRESSION: 1. Change in mental status could represent an opiate overdose, especially with the pinpoint pupils. The patient did receive 2.4 mg naloxone in the ED without a response, but this does not absolutely r/o opiate OD. The other possibility for the change in mental status is sepsis, although the source is unclear. 2. Elevated troponin - ACS vs stress-related. MANAGEMENT PLAN: 1. Empiric antibiotic coverage (Zosyn) for urinary tract and lungs. 2. Culture urine, blood, sputum. 3. Serial troponins 4. Continue intubation until the patient's mental status improves. 5. Diuresis with furosemide. CRITICAL CARE TIME: 60 minutes. [id number]/[facility] #: [id number] BAR
[2019-06-21] MEDS ORDERED: Propofol* 100 ML ONE ×2 (17:11→23:20)
[2019-06-21] MEDS: ZOSYN 3.375 GM Q8H per EXTENDED INFUSION IVPB SCH ×2 (17:13)
[2019-06-21 19:37] LABS: CKMB ng/mL 11.9 ng/mL (0.6-6.3)
[2019-06-21] MEDS: Furosemide IV* 10 MG/ML VIAL (40 MG) IV SCH (19:37)
[2019-06-21 19:38] LABS: Troponin I 5.62 ng/mL (<0.03)
[2019-06-21 20:22] LABS: Glucose 230 mg/dL (70-100)
[2019-06-21] MEDS: Heparin DRIP 25,000 UNITS(*) 25,000 UNITS/500 ML BAG IV SCH (20:23)
[2019-06-21] MEDS: Heparin VIAL(*) 5000 UNITS/ML VIAL (FIVE THOUSAND) IV PRN (20:23)
[2019-06-21] MEDS: Insulin LISPRO* 1 UNITS UNIT SUBCUT SCH (20:50)
[2019-06-21] MEDS: CMCS: Simvastatin TAB(NF) 20 MG TAB PO SCH (21:10)
[2019-06-22] MEDS: Propofol* 100 ML IV SCH ×5 (00:20→23:19)
[2019-06-22] MEDS: Insulin LISPRO* 1 UNITS UNIT SUBCUT SCH ×7 (00:31→23:48)
[2019-06-22] MEDS: ZOSYN 3.375 GM Q8H per EXTENDED INFUSION IVPB SCH ×6 (02:24→17:44)
[2019-06-22] MEDS: Heparin VIAL(*) 5000 UNITS/ML VIAL (FIVE THOUSAND) IV PRN ×2 (03:42→17:23)
[2019-06-22 06:01] LABS: Hematocrit 29 % (42-52); Hemoglobin 9.5 g/dL (14.0-18.0); Mean Corpuscular HGB Conc 33 g/dL (31-36); Mean Corpuscular Hemoglobin 27 pg (27-31); Mean Corpuscular Volume 81 fL (80-94); Mean Platelet Volume 7.6 fL (7.4-10.4); Platelet Count 117 10^3/uL (150-450); Red Blood Count 3.53 10^6 /uL (4.18-5.48); Red Cell Distribution Width 16 % (10-15); White Blood Count 8.9 10^3/uL (3.5-10.8)
[2019-06-22 06:23] LABS: Albumin 3.2 g/dL (3.2-5.2); BUN/Creatinine Ratio 21.3 (8-20); EGFR African American 48.9 (>60); EGFR Non-African American 40.4 (>60); Globulin 3.3 g/dL (2-4); Potassium 3.9 mmol/L (3.5-5.0); Total Bilirubin 0.4 mg/dL (0.2-1.0); Total Protein 6.5 g/dL (6.4-8.9)
[2019-06-22] MEDS: Furosemide IV* 10 MG/ML VIAL (40 MG) IV SCH (08:28)
[2019-06-22] MEDS: Aspirin 81 mg CHEW TAB* 81 MG TAB.CHEW PO SCH (08:28)
[2019-06-22] MEDS: NS 0.9% 1000 ML** 3,000 ML IV ONE (09:09)
[2019-06-22] MEDS: Chlorhexidine MOUTHWASH 0.12%* 15 ML UDC SCH ×4 (10:49→21:00)
[2019-06-22] MEDS: Lansoprazole SUSP* ORALSYR 3 MG/ML PO SCH (11:15)
--- NOTE | 2019-06-22 12:46 | PN ---
Date of Service: 06/22/19 Critical Care Services: 69 y/o male complex PMH including CAD/DM admitted with acute hypoxic respiratory failure secondary to pneumonia and CHF. Vital Signs: Temp Pulse Resp BP SpO2 FiO2 38.0 C 90 17 151/76 97 30 06/22/19 10:00 06/22/19 10:00 06/22/19 10:00 06/22/19 10:00 06/22/19 10:00 06/22 08:00 Physical Exam: Gen: appears non-toxic, sedated HEENT: intubated, PERRL Lungs: coarse entry bilat Cardiac: S1S2 regular Abdomen: soft, obese, NT, ND, +BS Extremities: s/p TMAs bilat, well perfused and well-healed, no edema Neuro: moves ext x 4, sedated Fluid Balance (Past 24 Hours): I= O= Net Intake & Output 06/20/19 06/21/19 06/22/19 06/23/19 06:59 06:59 06:59 06:59 Intake Total 4415 100 Output Total 3929 1916 Balance 486 -1816 Weight 116.2 kg Intake: IV Fluids 3886 NS (0.9%) 836 IVPB 285 ABX - ZOSYN 285 Medicated IV 244 CC - Propofol/Diprivan 244 Tube Feeding Flush Amount 100 Output: [place] 2230 1916 Labs: Laboratory Results - last 24 hr 06/21/19 06/21/19 06/21/19 12:40 12:55 12:55 WBC 9.6 RBC 3.40 L Hgb 9.1 L Hct 28 L MCV 82 MCH 27 MCHC 33 RDW 16 H Plt Count 120 L MPV 7.7 Neut % (Auto) 82.0 Lymph % (Auto) 8.7 [place] % (Auto) 8.8 Eos % (Auto) 0.0 Baso % (Auto) 0.5 Absolute Neuts (auto) 7.9 H Absolute Lymphs (auto) 0.8 L Absolute Monos (auto) 0.8 Absolute Eos (auto) 0.0 Absolute Basos (auto) 0.0 Absolute Nucleated RBC 0.0 Nucleated RBC % 0.0 APTT 34.7 Sodium Potassium Chloride Carbon Dioxide Anion Gap BUN 40 H Creatinine 1.80 H Est GFR ( Amer) 45.5 Est GFR (Non-Af Amer) 37.6 BUN/Creatinine Ratio Glucose POC Glucose (mg/dL) Calcium Total Bilirubin AST ALT Alkaline Phosphatase CK-MB (CK-2) Troponin I Total Protein Albumin Globulin Albumin/Globulin Ratio 06/21/19 06/21/19 06/21/19 14:40 19:06 19:06 WBC RBC Hgb Hct MCV MCH MCHC RDW Plt Count MPV Neut % (Auto) Lymph % (Auto) [place] % (Auto) Eos % (Auto) Baso % (Auto) Absolute Neuts (auto) Absolute Lymphs (auto) Absolute Monos (auto) Absolute Eos (auto) Absolute Basos (auto) Absolute Nucleated RBC Nucleated RBC % APTT 33.2 Sodium Potassium Chloride Carbon Dioxide Anion Gap BUN Creatinine Est GFR ( Amer) Est GFR (Non-Af Amer) BUN/Creatinine Ratio Glucose 230 H POC Glucose (mg/dL) Calcium Total Bilirubin AST ALT Alkaline Phosphatase CK-MB (CK-2) 11.9 H Troponin I 7.38 H* 5.62 H* Total Protein Albumin Globulin Albumin/Globulin Ratio 06/22/19 06/22/19 06/22/19 00:14 02:30 03:54 WBC RBC Hgb Hct MCV MCH MCHC RDW Plt Count MPV Neut % (Auto) Lymph % (Auto) [place] % (Auto) Eos % (Auto) Baso % (Auto) Absolute Neuts (auto) Absolute Lymphs (auto) Absolute Monos (auto) Absolute Eos (auto) Absolute Basos (auto) Absolute Nucleated RBC Nucleated RBC % APTT 52.9 H Sodium Potassium Chloride Carbon Dioxide Anion Gap BUN Creatinine Est GFR ( Amer) Est GFR (Non-Af Amer) BUN/Creatinine Ratio Glucose POC Glucose (mg/dL) 250 H 234 H Calcium Total Bilirubin AST ALT Alkaline Phosphatase CK-MB (CK-2) Troponin I Total Protein Albumin Globulin Albumin/Globulin Ratio 06/22/19 06/22/19 06/22/19 05:40 05:40 08:01 WBC 8.9 RBC 3.53 L Hgb 9.5 L Hct 29 L MCV 81 MCH 27 MCHC 33 RDW 16 H Plt Count 117 L MPV 7.6 Neut % (Auto) Lymph % (Auto) [place] % (Auto) Eos % (Auto) Baso % (Auto) Absolute Neuts (auto) Absolute Lymphs (auto) Absolute Monos (auto) Absolute Eos (auto) Absolute Basos (auto) Absolute Nucleated RBC Nucleated RBC % APTT Sodium 141 Potassium 3.9 Chloride 105 Carbon Dioxide 30 Anion Gap 6 BUN 36 H Creatinine 1.69 H Est GFR ( Amer) 48.9 Est GFR (Non-Af Amer) 40.4 BUN/Creatinine Ratio 21.3 H Glucose 193 H POC Glucose (mg/dL) 188 H Calcium 9.0 Total Bilirubin 0.40 AST 38 ALT 16 Alkaline Phosphatase 43 CK-MB (CK-2) Troponin I Total Protein 6.5 Albumin 3.2 Globulin 3.3 Albumin/Globulin Ratio 1.0 06/22/19 10:09 WBC RBC Hgb Hct MCV MCH MCHC RDW Plt Count MPV Neut % (Auto) Lymph % (Auto) [place] % (Auto) Eos % (Auto) Baso % (Auto) Absolute Neuts (auto) Absolute Lymphs (auto) Absolute Monos (auto) Absolute Eos (auto) Absolute Basos (auto) Absolute Nucleated RBC Nucleated RBC % APTT 60.8 H Sodium Potassium Chloride Carbon Dioxide Anion Gap BUN Creatinine Est GFR ( Amer) Est GFR (Non-Af Amer) BUN/Creatinine Ratio Glucose POC Glucose (mg/dL) Calcium Total Bilirubin AST ALT Alkaline Phosphatase CK-MB (CK-2) Troponin I Total Protein Albumin Globulin Albumin/Globulin Ratio Studies: CXR with pulmonary edema Nutrition: Will start TF Impression: 69 y/o male PMH CAD/DM/PVD/Substance abuse admitted with acute hypoxic respiratory failure secondary to pneumonia and CHF. Plan: Acute Hypoxic Respiratory Failure - continue to treat pneumonia though CXR less impressive to my eye for that entity than for pulmonary edema, will add an extra dose of lasix. He has plenty of BP with which to work. Renal function looks good as well. Does have some fever and will certainly continue the Abx. Stable ventilator requirement, hope to be able to move towards extubation as soon as tomorrow. CAD - demand ischemia, possibly secondary to pneumonia, evidence of acute diastolic heart failure. Plan as outlined by Cardiology for 48hrs Heparin gtt and antiplt, statin. Supportive care - start TF, glycemic control, GI/DVT prophylaxis. Requiring propofol and precedex to maintain adequate sedation and autonomic control. D/W in detail who voiced understanding and appreciation for the care. Critical Care Time: 40 minutes
--- NOTE | 2019-06-22 16:41 | PN ---
Subjective Date of Service: 06/22/19 Interval History: f/u sepsis, type 2 mi, pulmonary edema - IV fluids early, now diuresing - Less febrile, on antibiotics - Still intubated and sedated - ck-mb checked only 11 tele paced Medications Active Medications: Aspirin (Aspirin 81 Mg Chew Tab*) 81 mg PO DAILY [facility] Last Admin: 06/22/19 08:28 Dose: 81 mg Chlorhexidine Gluconate (Peridex Mouth Wash 0.12%*) 15 ml .SEE ORDER Q4HR [facility] Last Admin: 06/22/19 14:48 Dose: 15 ml Furosemide (Lasix Iv*) 40 mg IV DAILY [facility] Last Admin: 06/22/19 08:28 Dose: 40 mg Furosemide (Lasix Iv*) 40 mg IV ONCE ONE Stop: 06/22/19 18:01 Heparin Sodium (Porcine) (Heparin Vial(*)) 0 units IV .PER PROTOCOL PRN PRN Reason: PER PROTOCOL Last Admin: 06/22/19 03:42 Dose: 2,000 units Sodium Chloride (Ns 0.9% 1000 Ml) 3,000 mls @ 50 mls/hr IV .PER RATE ONE Stop: 06/23/19 20:33 Last Admin: 06/22/19 09:09 Dose: 50 mls/hr Piperacillin Sod/Tazobactam (Sod 3.375 gm/ Sodium Chloride) 100 mls @ 25 mls/ hr IVPB Q8H [facility] Last Admin: 06/22/19 10:04 Dose: 25 mls/hr Heparin Sodium/Dextrose (Heparin Drip 25,000 Units(*)) 25,000 units in 500 mls @ 0 mls/hr IV PER RATE [facility]; Protocol Last Admin: 06/21/19 20:23 Dose: 20 mls/hr Propofol (Diprivan*) 100 mls @ 0 mls/hr IV .PER PROTOCOL [facility]; Protocol Last Admin: 06/22/19 10:48 Dose: 12 mls/hr Insulin Human Lispro (Humalog*) 0 units SUBCUT FS Q4 ICU [facility]; Protocol Last Admin: 06/22/19 16:31 Dose: 3 units Lansoprazole (Lansoprazole Susp* Oralsyr) 30 mg PO DAILY [facility] Last Admin: 06/22/19 11:15 Dose: 30 mg Pharmacy Consult (Zosyn Per Pharmacy*) 1 note FOLLOW UP .ZOSYN PER PHARMACY [facility] Simvastatin (Zocor(Nf)) 20 mg PO BEDTIME [facility] Last Admin: 06/21/19 21:10 Dose: 20 mg Objective Vital Signs: Temp Pulse Resp BP Pulse Ox 100.4 F 83 15 139/70 96 06/22/19 16:00 06/22/19 16:00 06/22/19 16:00 06/22/19 16:00 06/22/19 16:00 Oxygen Devices in Use Now: Endotracheal Tube, Mechanical Ventilator Appearance: intubated, sedated Ears/Nose/Mouth/Throat: - - et tube in place Neck: Trachea Midline, - - uncertain jvp Respiratory: Symmetrical Chest Expansion and Respiratory Effort, - - transmitted breath sounds Cardiovascular: RRR, - - uncertain jvp, no significant murmur. sternotomy scar intact and right pectoral pacemaker in place Abdominal: - - obese, soft Extremities: - - trace edema, s/p bilateral lower foot amputation Skin: No Rash or Ulcers Neurological: - - sedated, intubated Laboratory Results: 06/22/19 05:40 06/22/19 05:40 APTT 60.8 seconds (26.0-38.0) H 06/22/19 10:09 Total Bilirubin 0.40 mg/dL (0.2-1.0) 06/22/19 05:40 AST 38 U/L (13-39) 06/22/19 05:40 ALT 16 U/L (7-52) 06/22/19 05:40 Alkaline Phosphatase 43 U/L (34-104) 06/22/19 05:40 CK-MB (CK-2) 11.9 ng/mL (0.6-6.3) H 06/21/19 19:06 B-Natriuretic Peptide 672 pg/mL (<=100) H 06/21/19 08:35 Total Protein 6.5 g/dL (6.4-8.9) 06/22/19 05:40 Albumin 3.2 g/dL (3.2-5.2) 06/22/19 05:40 Globulin 3.3 g/dL (2-4) 06/22/19 05:40 Albumin/Globulin Ratio 1.0 (1-3) 06/22/19 05:40 06/21/19 06/21/19 06/21/19 08:35 14:40 19:06 Troponin I 7.31 H* 7.38 H* 5.62 H* Diagnostic Imaging: Cardiac Testing: Pulse Volume Recording - (02/19/2016) [facility] JUAREZ values are compatible with claudication but are overall modestly improved when compared to the April JUAREZ. New since the previous JUAREZ is a reduction in amplitude of the volume pulse recording measured at the left ankle relative to the right. Cardiac Procedures: Pacemaker Implantation - (03/29/2016) Dual chamber pacer Lytrotronic A2DR01 MRI device Cardiac Catheterization - (09/18/2013) Multi-Vessel Coronary Artery Bypass Grafting - (07/13/1996) CARRASCO to LAD, SVG to D1, SVG to OM1 and OM2, NOEMY to PDA. Cardiac Catheterization - (09/14/2013) LM: 50%, LAD: occluded, LCx: occluded, RCA: occluded mid vessel, CARRASCO to LAD: patent, NOEMY to PDA: patent, SVG to D1 : patent, SVG to OM1/OM2: patent nsr, v-paced Assessment/Plan Mr. Knox is a 69 year old man with multiple co-morbidities as above admitted with an enzymatically small type 2 NM in the setting of sepsis (suspected lung source), LVEF low normal. All [place] vessels occluded, unlikely graft thrombosis given clinical presentation. - continue aspirin and statin - Continue heparin gtt x 48 hours - is uncertain about plavix on allergy list will hold off on second anti- platelet for now can be re-evaluated later in hospital course - Metoprolol also listed as allergy would hold off on beta-kurtis for now can be re-evaluated later in hospital course - Continue antibiotics, fluid management and other care as per ICU Thank you for allowing me to participate in the cardiovascular care of this patient. Please do not hesitate to contact me with questions or concerns
[2019-06-22] MEDS: fentaNYL* 50 MCG/ML 2 ML VIAL (100 MCG VIAL) IV PRN ×2 (17:11→21:33)
[2019-06-22] MEDS ORDERED: Furosemide IV* 10 MG/ML VIAL (40 MG) IV ONE (18:00)
[2019-06-22] MEDS: CMCS: Simvastatin TAB(NF) 20 MG TAB PO SCH (20:59)
[2019-06-22] MEDS: Heparin DRIP 25,000 UNITS(*) 25,000 UNITS/500 ML BAG IV SCH (22:50)
[2019-06-23] MEDS: ZOSYN 3.375 GM Q8H per EXTENDED INFUSION IVPB SCH ×6 (02:28→17:36)
[2019-06-23] MEDS: Chlorhexidine MOUTHWASH 0.12%* 15 ML UDC SCH ×6 (02:28→21:10)
[2019-06-23] MEDS: Insulin LISPRO* 1 UNITS UNIT SUBCUT SCH ×5 (03:59→20:09)
[2019-06-23] MEDS: NS 0.9% 1000 ML** 3,000 ML IV ONE (04:46)
[2019-06-23] MEDS: Propofol* 100 ML IV SCH ×4 (05:07→21:10)
[2019-06-23 05:49] LABS: Hematocrit 28 % (42-52); Hemoglobin 9.2 g/dL (14.0-18.0); Mean Corpuscular HGB Conc 33 g/dL (31-36); Mean Corpuscular Hemoglobin 26 pg (27-31); Mean Corpuscular Volume 80 fL (80-94); Mean Platelet Volume 7.5 fL (7.4-10.4); Platelet Count 124 10^3/uL (150-450); Red Blood Count 3.49 10^6 /uL (4.18-5.48); Red Cell Distribution Width 16 % (10-15)
[2019-06-23 06:02] LABS: Albumin 3.2 g/dL (3.2-5.2); Calcium 9.2 mg/dL (8.6-10.3); Magnesium 1.8 mg/dL (1.9-2.7); Potassium 3.5 mmol/L (3.5-5.0); Total Bilirubin 0.4 mg/dL (0.2-1.0)
[2019-06-23 06:08] LABS: Albumin/Globulin Ratio 0.9 (1-3); BUN/Creatinine Ratio 17.4 (8-20); EGFR African American 51.7 (>60); EGFR Non-African American 42.8 (>60); Globulin 3.4 g/dL (2-4); Phosphorus 2.9 mg/dL (2.5-5.0); Total Protein 6.6 g/dL (6.4-8.9)
[2019-06-23] MEDS: Lansoprazole SUSP* ORALSYR 3 MG/ML PO SCH (09:14)
[2019-06-23] MEDS: Furosemide IV* 10 MG/ML VIAL (40 MG) IV SCH (09:14)
[2019-06-23] MEDS: Aspirin 81 mg CHEW TAB* 81 MG TAB.CHEW PO SCH (09:14)
[2019-06-23] MEDS: fentaNYL* 50 MCG/ML 2 ML VIAL (100 MCG VIAL) IV PRN ×3 (09:15→22:25)
--- NOTE | 2019-06-23 11:30 | PN ---
Date of Service: 06/23/19 Critical Care Services: Stable acute hypoxic respiratory failure in strong negative balance last 24hrs. Vital Signs: Temp Pulse Resp BP SpO2 FiO2 37.0 C 71 18 148/70 97 30 06/23/19 10:00 06/23/19 10:00 06/23/19 09:15 06/23/19 10:00 06/23/19 10:00 06/23 08:00 Physical Exam: Gen: sedated, appears non-toxic HEENT: intubated, PERRL Lungs: coarse entry bilat Cardiac: S1S2 regular Abdomen: soft, NT, ND, +BS Extremities: +1 edema Neuro: rouses, moves ext. Fluid Balance (Past 24 Hours): I= O= Net Intake & Output 06/21/19 06/22/19 06/23/19 06/24/19 06:59 06:59 06:59 06:59 Intake Total 4415 2710 Output Total 3929 6009 1215 Balance 031 -9138 -1210 Weight 116.2 kg 113.8 kg Intake: IV Fluids 3886 1197 NS (0.9%) 836 1197 IVPB 285 321 ABX - ZOSYN 285 321 Medicated IV 244 369 CC - Propofol/Diprivan 244 369 Heparin 395 Tube Feeding 328 Tube Feeding Flush Amount 100 Output: [place] 3929 5984 1180 Tube Feeding Residual 25 35 Amount Wasted Other: Estimated Stool Amount Medium Labs: Laboratory Results - last 24 hr 06/22/19 06/22/19 06/22/19 12:17 15:57 16:43 WBC RBC Hgb Hct MCV MCH MCHC RDW Plt Count MPV APTT 45.5 H Sodium Potassium Chloride Carbon Dioxide Anion Gap BUN Creatinine Est GFR ( Amer) Est GFR (Non-Af Amer) BUN/Creatinine Ratio Glucose POC Glucose (mg/dL) 184 H 192 H Calcium Ionized Calcium Phosphorus Magnesium Total Bilirubin AST ALT Alkaline Phosphatase Total Protein Albumin Globulin Albumin/Globulin Ratio 06/22/19 06/22/19 06/22/19 20:41 23:32 23:43 WBC RBC Hgb Hct MCV MCH MCHC RDW Plt Count MPV APTT 94.1 H Sodium Potassium Chloride Carbon Dioxide Anion Gap BUN Creatinine Est GFR ( Amer) Est GFR (Non-Af Amer) BUN/Creatinine Ratio Glucose POC Glucose (mg/dL) 286 H 304 H Calcium Ionized Calcium Phosphorus Magnesium Total Bilirubin AST ALT Alkaline Phosphatase Total Protein Albumin Globulin Albumin/Globulin Ratio 06/23/19 06/23/19 06/23/19 03:57 05:35 05:35 WBC RBC Hgb Hct MCV MCH MCHC RDW Plt Count MPV APTT 72.0 H Sodium Potassium Chloride Carbon Dioxide Anion Gap BUN Creatinine Est GFR ( Amer) Est GFR (Non-Af Amer) BUN/Creatinine Ratio Glucose POC Glucose (mg/dL) 264 H Calcium Ionized Calcium 1.16 Phosphorus Magnesium Total Bilirubin AST ALT Alkaline Phosphatase Total Protein Albumin Globulin Albumin/Globulin Ratio 06/23/19 06/23/19 06/23/19 05:35 05:35 08:13 WBC 7.0 RBC 3.49 L Hgb 9.2 L Hct 28 L MCV 80 MCH 26 L MCHC 33 RDW 16 H Plt Count 124 L MPV 7.5 APTT Sodium 139 Potassium 3.5 Chloride 101 Carbon Dioxide 32 Anion Gap 6 BUN 28 H Creatinine 1.61 H Est GFR ( Amer) 51.7 Est GFR (Non-Af Amer) 42.8 BUN/Creatinine Ratio 17.4 Glucose 233 H POC Glucose (mg/dL) 256 H Calcium 9.2 Ionized Calcium Phosphorus 2.9 Magnesium 1.8 L Total Bilirubin 0.40 AST 26 ALT 17 Alkaline Phosphatase 48 Total Protein 6.6 Albumin 3.2 Globulin 3.4 Albumin/Globulin Ratio 0.9 L Studies: CXR with persistent pulmonary edema to my eye Nutrition: Adriana TF Impression: 69 y/o male known MV CAD acute hypoxic respiratory failure improving with lasix. Not clear if truly had pneumonia or not but certainly is vulnerable and will continue ABx for now but may attenuate the course. Plan: Acute Hypoxic Respiratory Failure - pulmonary edema perissts despite negative balance 4 liters, will continue to diurese. Will also continue to treat pneumonia though I'm not convinced it is present. Clearly had demand ischemia and may actually have had primary diastolic failure, hard to know for sure. Improving but not ready to extubate as yet. Plenty of BP left even on 2 sedatives so will continue to diurese especially in the context of falling Cr. Pneumonia - as above CAD - as per cardiology, I've ordered heparin to DC at 1900, 48hrs of therapy. ASA/statin for now. DANIELLE - steadily improving. IDDM - glucose not controlled, will start back on his home dose of Lantus. D/W in detail at bedside. Critical Care Time: 40 minutes
[2019-06-23] MEDS: Heparin VIAL(*) 5000 UNITS/ML VIAL (FIVE THOUSAND) IV PRN (12:42)
[2019-06-23] MEDS: Insulin GLARGINE(*) 1 UNITS UNIT SUBCUT SCH (13:03)
[2019-06-23] MEDS ORDERED: Furosemide IV* 10 MG/ML VIAL (40 MG) IV ONE (18:00)
[2019-06-23] MEDS: CMCS: Simvastatin TAB(NF) 20 MG TAB PO SCH (21:10)
[2019-06-23] MEDS ORDERED: Succinylcholine* 20 MG/ML 10 ML VIAL ONE (23:10)
[2019-06-24] MEDS: Insulin LISPRO* 1 UNITS UNIT SUBCUT SCH ×3 (00:39→09:41)
[2019-06-24] MEDS: ZOSYN 3.375 GM Q8H per EXTENDED INFUSION IVPB SCH ×6 (02:15→17:36)
[2019-06-24] MEDS: Propofol* 100 ML IV SCH ×3 (02:24→19:03)
[2019-06-24] MEDS: Chlorhexidine MOUTHWASH 0.12%* 15 ML UDC SCH ×5 (04:09→20:08)
[2019-06-24 04:22] LABS: Albumin 3.4 g/dL (3.2-5.2); Calcium 9.8 mg/dL (8.6-10.3); Magnesium 1.7 mg/dL (1.9-2.7); Potassium 3.6 mmol/L (3.5-5.0); Total Bilirubin 0.3 mg/dL (0.2-1.0)
[2019-06-24 04:28] LABS: Albumin/Globulin Ratio 0.9 (1-3); BUN/Creatinine Ratio 15.3 (8-20); EGFR African American 48.6 (>60); EGFR Non-African American 40.2 (>60); Globulin 3.6 g/dL (2-4)
[2019-06-24] MEDS: Magnesium Sulfate 1 GM IV* 1 GM/100 ML BAG IV ONE ×2 (05:49→06:46)
[2019-06-24] MEDS: Aspirin 81 mg CHEW TAB* 81 MG TAB.CHEW PO SCH (09:43)
[2019-06-24] MEDS ORDERED: Furosemide IV* 10 MG/ML 10 ML VIAL (100 MG) IV ONE (09:47)
[2019-06-24] MEDS: Lansoprazole SUSP* ORALSYR 3 MG/ML PO SCH (11:03)
--- NOTE | 2019-06-24 11:33 | PN ---
Date of Service: 06/24/19 Critical Care Services: Negative balance and doing well but still HTN and pulmonary edema on CXR Vital Signs: Temp Pulse Resp BP SpO2 FiO2 38.0 C 88 19 176/82 95 30 06/24/19 10:00 06/24/19 10:00 06/24/19 06:00 06/24/19 10:00 06/24/19 10:00 06/24 04:00 Physical Exam: Gen: comfortable, non-toxic HEENT: NCAT, intubated, PERRL Lungs: coarse entry bilat Cardiac: S1S2 regular Abdomen: soft, NT, ND, +BS Extremities: +1 edema Neuro: sedated, moves ext spont. Fluid Balance (Past 24 Hours): I= O= Net Intake & Output 06/22/19 06/23/19 06/24/19 06/25/19 06:59 06:59 06:59 06:59 Intake Total 4415 2710 3903.4 50 Output Total 3929 6009 5730 650 Balance 486 -3299 -1826.6 -600 Weight 116.2 kg 113.8 kg 111.5 kg Intake: IV Fluids 3886 1197 564 ABX - ZOSYN 244 NS (0.9%) 836 1197 320 IVPB 285 321 333 ABX - ZOSYN 285 321 333 Medicated IV 244 369 989.4 CC - Propofol/Diprivan 244 369 520.4 Heparin 469 Heparin 395 Tube Feeding 328 1967 Tube Feeding Flush Amount 100 50 50 Output: [place] 3929 5984 5680 650 Tube Feeding Residual 25 50 Amount Wasted Other: Estimated Stool Amount Medium Labs: Laboratory Results - last 24 hr 06/23/19 06/23/19 06/23/19 11:50 12:51 20:06 APTT 45.2 H Sodium Potassium Chloride Carbon Dioxide Anion Gap BUN Creatinine Est GFR ( Amer) Est GFR (Non-Af Amer) BUN/Creatinine Ratio Glucose POC Glucose (mg/dL) 278 H 290 H Calcium Ionized Calcium Phosphorus Magnesium Total Bilirubin AST ALT Alkaline Phosphatase Total Protein Albumin Globulin Albumin/Globulin Ratio 06/24/19 06/24/19 06/24/19 04:00 04:00 04:04 APTT Sodium 137 Potassium 3.6 Chloride 96 L Carbon Dioxide 34 H Anion Gap 7 BUN 26 H Creatinine 1.70 H Est GFR ( Amer) 48.6 Est GFR (Non-Af Amer) 40.2 BUN/Creatinine Ratio 15.3 Glucose 274 H POC Glucose (mg/dL) 290 H Calcium 9.8 Ionized Calcium 1.18 Phosphorus 4.0 Magnesium 1.7 L Total Bilirubin 0.30 AST 22 ALT 22 Alkaline Phosphatase 57 Total Protein 7.0 Albumin 3.4 Globulin 3.6 Albumin/Globulin Ratio 0.9 L Studies: CXR with pulmonary edema Nutrition: Adriana TF Impression: 69 y/o male with known CAD admitted with acute hypoxic respiratory failure and concern for pneumonia. he continues to have pulmonary edema on CXR with HTN despite 6 liters negative balance last 48 hrs. Plan: Acute Hypoxic Respiratory Failure - pulmonary edema and HTN still present depsite 6 liters negative balcne, Cr at 1.7, will continue to diurese. That his CXR still shows CHF while sedated/vented and that he is still hypertensive despite sedation / PPV speaks to ongoing hypervolemia. He does have edema to exam so will still pull fluid and watch renal function but any rise in renal indices at this point is not secondary to hypovolemia here. ECHO was a hypertensive heart and certainly consistent with a propensity for diastolic failure. When water abates on exam will focus more directly on pure afterload reduction. The current constellation of findings predicts acute diastolic failure on removal of positive pressure ventilation. Diabetes - remains hyperglycemic, will start insulin drip and leave his baseline lantus on in the background expecting to have to increase it serially to wean the insulin gtt once control is attained. CAD - ASA/Statin, attempt euvolemia Supportive care - electrolytes, TF, GI/DVT prophylaxis all being addressed. D/W in detail who voiced understanding and appreciation for the care. Critical Care Time: 40 minutes
[2019-06-24] MEDS ORDERED: Insulin Infusion 100unit/100mL 100 UNITS/100 ML UNIT IV SCH (12:00)
[2019-06-24] MEDS: Insulin GLARGINE(*) 1 UNITS UNIT SUBCUT SCH (12:26)
--- NOTE | 2019-06-24 15:10 | PN ---
Subjective Interval History: f/u sepsis, type 2 mi, pulmonary edema - Still low grade fever, wbc normal, diuresing, remains intubated tele paced Medications Active Medications: Aspirin (Aspirin 81 Mg Chew Tab*) 81 mg PO DAILY [facility] Last Admin: 06/24/19 09:43 Dose: 81 mg Chlorhexidine Gluconate (Peridex Mouth Wash 0.12%*) 15 ml .SEE ORDER Q4H [facility] Last Admin: 06/24/19 13:21 Dose: 15 ml Fentanyl Citrate (Fentanyl*) 50 mcg IV Q4H PRN PRN Reason: .PAIN Last Admin: 06/23/19 22:25 Dose: 50 mcg Heparin Sodium (Porcine) (Heparin Vial(*)) 0 units IV .PER PROTOCOL PRN PRN Reason: PER PROTOCOL Last Admin: 06/23/19 12:42 Dose: 2,000 units Piperacillin Sod/Tazobactam (Sod 3.375 gm/ Sodium Chloride) 100 mls @ 25 mls/ hr IVPB Q8H [facility] Last Admin: 06/24/19 09:51 Dose: 25 mls/hr Propofol (Diprivan*) 100 mls @ 0 mls/hr IV .PER PROTOCOL [facility]; Protocol Last Admin: 06/24/19 07:11 Dose: 16.7 mls/hr Insulin Human Regular (Insulin Regular Iv Infusion 1 Unit/Ml) 100 units in 100 mls @ 7 mls/hr IV .(Initial Rate) [facility] Last Admin: 06/24/19 13:00 Dose: 7 mls/hr Insulin Glargine (Lantus(*)) 35 units SUBCUT Q24H [facility] Last Admin: 06/24/19 12:26 Dose: 35 units Lansoprazole (Lansoprazole Susp* Oralsyr) 30 mg PO DAILY [facility] Last Admin: 06/24/19 11:03 Dose: 30 mg Pharmacy Consult (Zosyn Per Pharmacy*) 1 note FOLLOW UP .ZOSYN PER PHARMACY [facility] Simvastatin (Zocor(Nf)) 20 mg PO BEDTIME [facility] Last Admin: 06/23/19 21:10 Dose: 20 mg Objective Vital Signs: Temp Pulse Resp BP Pulse Ox 100.6 F 88 21 137/64 95 06/24/19 14:00 06/24/19 14:00 06/24/19 14:00 06/24/19 14:00 06/24/19 14:00 Oxygen Devices in Use Now: Endotracheal Tube, Mechanical Ventilator Appearance: intubated, sedated Ears/Nose/Mouth/Throat: - - et tube in place Neck: Trachea Midline, - - uncertain jvp Respiratory: Symmetrical Chest Expansion and Respiratory Effort, - - transmitted breath sounds Cardiovascular: RRR, - - uncertain jvp, no significant murmur. sternotomy scar intact and right pectoral pacemaker in place Abdominal: - - obese, soft Extremities: - - trace edema, s/p bilateral lower foot amputation Skin: No Rash or Ulcers Neurological: - - sedated, intubated Laboratory Results: 06/23/19 05:35 06/24/19 04:00 APTT 45.2 seconds (26.0-38.0) H 06/23/19 11:50 Total Bilirubin 0.30 mg/dL (0.2-1.0) 06/24/19 04:00 AST 22 U/L (13-39) 06/24/19 04:00 ALT 22 U/L (7-52) 06/24/19 04:00 Alkaline Phosphatase 57 U/L (34-104) 06/24/19 04:00 CK-MB (CK-2) 11.9 ng/mL (0.6-6.3) H 06/21/19 19:06 B-Natriuretic Peptide 672 pg/mL (<=100) H 06/21/19 08:35 Total Protein 7.0 g/dL (6.4-8.9) 06/24/19 04:00 Albumin 3.4 g/dL (3.2-5.2) 06/24/19 04:00 Globulin 3.6 g/dL (2-4) 06/24/19 04:00 Albumin/Globulin Ratio 0.9 (1-3) L 06/24/19 04:00 06/21/19 06/21/19 06/21/19 08:35 14:40 19:06 Troponin I 7.31 H* 7.38 H* 5.62 H* Diagnostic Imaging: Cardiac Testing: Pulse Volume Recording - (02/19/2016) [facility] JUAREZ values are compatible with claudication but are overall modestly improved when compared to the April JUAREZ. New since the previous JUAREZ is a reduction in amplitude of the volume pulse recording measured at the left ankle relative to the right. Cardiac Procedures: Pacemaker Implantation - (03/29/2016) Dual chamber pacer [employer] Enterpr[employer] A2DR01 MRI device Cardiac Catheterization - (09/18/2013) Multi-Vessel Coronary Artery Bypass Grafting - (07/13/1996) CARRASCO to LAD, SVG to D1, SVG to OM1 and OM2, NOEMY to PDA. Cardiac Catheterization - (09/14/2013) LM: 50%, LAD: occluded, LCx: occluded, RCA: occluded mid vessel, CARRASCO to LAD: patent, NOEMY to PDA: patent, SVG to D1 : patent, SVG to OM1/OM2: patent ekg admission nsr, v-paced cxr Exam Date: 06/24/19 IMPRESSION: CARDIOMEGALY WITH MILD INTERSTITIAL EDEMA UNCHANGED SINCE JUNE 23, 2019. TUBES AND LINES ARE IN APPROPRIATE POSITION. Assessment/Plan Mr. Knox is a 69 year old man with multiple co-morbidities as above admitted with an enzymatically small type 2 [place] (ck-mb checked 11) in the setting of sepsis (rigors, altered mental status, fever 102 ? lung source ? viral vs. bacterial), LVEF low normal. All [place] vessels occluded, unlikely graft thrombosis given clinical presentation. Diuresing for HFpEF exacerbation ? infection induced or pre-existing - continue aspirin and statin - Can change therapeutic heparin to DVT prophylaxis dosing from a cardiac standpoint - Metoprolol allergy not started - Continue antibiotics, fluid management and other care as per ICU - Once euvolemic would consider changing oral lasix 80 mg to torsemide 40 mg po daily residential
[2019-06-24] MEDS: Furosemide IV* 10 MG/ML VIAL (40 MG) IV SCH (16:57)
[2019-06-24] MEDS: CMCS: Simvastatin TAB(NF) 20 MG TAB PO SCH (20:08)
[2019-06-25] MEDS: Chlorhexidine MOUTHWASH 0.12%* 15 ML UDC SCH ×6 (00:05→20:36)
[2019-06-25] MEDS: ZOSYN 3.375 GM Q8H per EXTENDED INFUSION IVPB SCH ×6 (01:55→19:36)
[2019-06-25] MEDS: Insulin REGULAR(*) Infusion Protocol (IIP), non-DKA Adult Hyperglycemia (2017) IV SCH ×2 (03:23→19:56)
[2019-06-25 05:30] LABS: Calcium 9.4 mg/dL (8.6-10.3); Magnesium 2.1 mg/dL (1.9-2.7); Potassium 3.3 mmol/L (3.5-5.0)
[2019-06-25 05:35] LABS: ABS Eosinophils 0.2 10^3/ul (0-0.6); ABS Lymphocytes 0.9 10^3/ul (1.0-4.8); ABS Monocytes 0.3 10^3/ul (0-0.8); ABS Neutrophils 3.4 10^3/ul (1.5-7.7); Eosinophil % 4.7 %; Hematocrit 45 % (42-52); Hemoglobin 14.6 g/dL (14.0-18.0); Mean Corpuscular HGB Conc 33 g/dL (31-36); Mean Corpuscular Hemoglobin 26 pg (27-31); Mean Corpuscular Volume 81 fL (80-94); Mean Platelet Volume 7.6 fL (7.4-10.4); Platelet Count 110 10^3/uL (150-450); Red Blood Count 5.55 10^6 /uL (4.18-5.48); Red Cell Distribution Width 16 % (10-15); White Blood Count 4.9 10^3/uL (3.5-10.8)
[2019-06-25 05:36] LABS: EGFR African American 43.3 (>60); EGFR Non-African American 35.8 (>60); Phosphorus 4.8 mg/dL (2.5-5.0)
[2019-06-25] MEDS: Propofol* 100 ML IV SCH ×3 (05:52→17:27)
[2019-06-25] MEDS: Lansoprazole SUSP* ORALSYR 3 MG/ML PO SCH (08:28)
[2019-06-25] MEDS: Aspirin 81 mg CHEW TAB* 81 MG TAB.CHEW PO SCH (08:28)
[2019-06-25] MEDS ORDERED: NS 0.9% IV ONE (09:44)
[2019-06-25] MEDS ORDERED: CALCIUM GLUCONATE IV ONE (09:44)
[2019-06-25] MEDS: KCL 20 MEQ/100 ML IVPREMIX* 20 MEQ/100 ML BAG IV SCH ×2 (10:45→13:21)
[2019-06-25] MEDS: Potassium Chlor TAB* 20 MEQ TAB.ER PO ONE ×2 (10:59→11:28)
--- NOTE | 2019-06-25 11:05 | PN ---
Date of Service: 06/25/19 Critical Care Services: Did well overnight Vital Signs: Temp Pulse Resp BP SpO2 FiO2 37.8 C 73 21 121/58 93 30 06/25/19 10:00 06/25/19 10:00 06/25/19 10:00 06/25/19 10:00 06/25/19 10:00 06/25 07:59 Physical Exam: Gen: appears non-toxic, NAD HEENT: NCAT, PERRL Lungs: coarse entry, scant rales Cardiac: S1S2 regular Abdomen: soft, NT, ND, +BS Extremities: mild edema Neuro: Sedated but responds Fluid Balance (Past 24 Hours): I= O= Net Intake & Output 06/23/19 06/24/19 06/25/19 06/26/19 06:59 06:59 06:59 06:59 Intake Total 2710 3903.4 2556.2 75 Output Total 6009 5730 3527 135 Balance -3299 -1826.6 -970.8 -60 Weight 113.8 kg 111.5 kg 108.726 kg Intake: IV Fluids 1197 564 257 ABX - ZOSYN 244 NS (0.9%) 1197 320 257 IVPB 321 333 242 ABX - ZOSYN 321 333 242 Medicated IV 369 989.4 484.2 CC - Insulin 100.2 CC - Propofol/Diprivan 369 520.4 384 Heparin 469 Heparin 395 Tube Feeding 328 1967 1493 Tube Feeding Flush Amount 100 50 80 75 Output: [place] 5984 5680 2667 135 Liquid Stool 800 Tube Feeding Residual 25 50 60 Amount Wasted Other: Date of Last Bowel 06/24/19 Movement # Bowel Movements 1 Estimated Stool Amount Medium Large Labs: Laboratory Results - last 24 hr 06/23/19 06/24/19 06/24/19 16:30 00:36 09:27 WBC RBC Hgb Hct MCV MCH MCHC RDW Plt Count MPV Neut % (Auto) Lymph % (Auto) Elliott % (Auto) Eos % (Auto) Baso % (Auto) Absolute Neuts (auto) Absolute Lymphs (auto) Absolute Monos (auto) Absolute Eos (auto) Absolute Basos (auto) Absolute Nucleated RBC Nucleated RBC % Sodium Potassium Chloride Carbon Dioxide Anion Gap BUN Creatinine Est GFR ( Amer) Est GFR (Non-Af Amer) BUN/Creatinine Ratio Glucose POC Glucose (mg/dL) 252 H 295 H 352 H Calcium Ionized Calcium Phosphorus Magnesium 06/24/19 06/24/19 06/24/19 12:17 14:04 15:02 WBC RBC Hgb Hct MCV MCH MCHC RDW Plt Count MPV Neut % (Auto) Lymph % (Auto) Elliott % (Auto) Eos % (Auto) Baso % (Auto) Absolute Neuts (auto) Absolute Lymphs (auto) Absolute Monos (auto) Absolute Eos (auto) Absolute Basos (auto) Absolute Nucleated RBC Nucleated RBC % Sodium Potassium Chloride Carbon Dioxide Anion Gap BUN Creatinine Est GFR ( Amer) Est GFR (Non-Af Amer) BUN/Creatinine Ratio Glucose POC Glucose (mg/dL) 301 H 302 H 281 H Calcium Ionized Calcium Phosphorus Magnesium 06/24/19 06/24/19 06/24/19 16:54 17:58 19:07 WBC RBC Hgb Hct MCV MCH MCHC RDW Plt Count MPV Neut % (Auto) Lymph % (Auto) Elliott % (Auto) Eos % (Auto) Baso % (Auto) Absolute Neuts (auto) Absolute Lymphs (auto) Absolute Monos (auto) Absolute Eos (auto) Absolute Basos (auto) Absolute Nucleated RBC Nucleated RBC % Sodium Potassium Chloride Carbon Dioxide Anion Gap BUN Creatinine Est GFR ( Amer) Est GFR (Non-Af Amer) BUN/Creatinine Ratio Glucose POC Glucose (mg/dL) 228 H 199 H 152 H Calcium Ionized Calcium Phosphorus Magnesium 06/24/19 06/24/19 06/24/19 19:59 20:52 21:56 WBC RBC Hgb Hct MCV MCH MCHC RDW Plt Count MPV Neut % (Auto) Lymph % (Auto) Elliott % (Auto) Eos % (Auto) Baso % (Auto) Absolute Neuts (auto) Absolute Lymphs (auto) Absolute Monos (auto) Absolute Eos (auto) Absolute Basos (auto) Absolute Nucleated RBC Nucleated RBC % Sodium Potassium Chloride Carbon Dioxide Anion Gap BUN Creatinine Est GFR ( Amer) Est GFR (Non-Af Amer) BUN/Creatinine Ratio Glucose POC Glucose (mg/dL) 181 H 181 H 189 H Calcium Ionized Calcium Phosphorus Magnesium 06/24/19 06/24/19 06/25/19 22:57 23:48 01:03 WBC RBC Hgb Hct MCV MCH MCHC RDW Plt Count MPV Neut % (Auto) Lymph % (Auto) Elliott % (Auto) Eos % (Auto) Baso % (Auto) Absolute Neuts (auto) Absolute Lymphs (auto) Absolute Monos (auto) Absolute Eos (auto) Absolute Basos (auto) Absolute Nucleated RBC Nucleated RBC % Sodium Potassium Chloride Carbon Dioxide Anion Gap BUN Creatinine Est GFR ( Amer) Est GFR (Non-Af Amer) BUN/Creatinine Ratio Glucose POC Glucose (mg/dL) 188 H 165 H 175 H Calcium Ionized Calcium Phosphorus Magnesium 06/25/19 06/25/19 06/25/19 01:54 05:00 05:00 WBC RBC Hgb Hct MCV MCH MCHC RDW Plt Count MPV Neut % (Auto) Lymph % (Auto) Elliott % (Auto) Eos % (Auto) Baso % (Auto) Absolute Neuts (auto) Absolute Lymphs (auto) Absolute Monos (auto) Absolute Eos (auto) Absolute Basos (auto) Absolute Nucleated RBC Nucleated RBC % Sodium 145 D Potassium 3.3 L Chloride 100 L Carbon Dioxide 33 H Anion Gap 12 H BUN 32 H Creatinine 1.88 H Est GFR ( Amer) 43.3 Est GFR (Non-Af Amer) 35.8 BUN/Creatinine Ratio 17.0 Glucose 153 H POC Glucose (mg/dL) 179 H Calcium 9.4 Ionized Calcium 1.15 L Phosphorus 4.8 Magnesium 2.1 06/25/19 05:00 WBC 4.9 RBC 5.55 H Hgb 14.6 Hct 45 MCV 81 MCH 26 L MCHC 33 RDW 16 H Plt Count 110 L MPV 7.6 Neut % (Auto) 69.8 Lymph % (Auto) 19.0 Elliott % (Auto) 6.0 Eos % (Auto) 4.7 Baso % (Auto) 0.5 Absolute Neuts (auto) 3.4 Absolute Lymphs (auto) 0.9 L Absolute Monos (auto) 0.3 Absolute Eos (auto) 0.2 Absolute Basos (auto) 0.0 Absolute Nucleated RBC 0.0 Nucleated RBC % 0.0 Sodium Potassium Chloride Carbon Dioxide Anion Gap BUN Creatinine Est GFR ( Amer) Est GFR (Non-Af Amer) BUN/Creatinine Ratio Glucose POC Glucose (mg/dL) Calcium Ionized Calcium Phosphorus Magnesium Studies: CXR still with some pulmonary edema Nutrition: Adriana TF Impression: 69 y/o male multivessel CAD admitted with acute hypoxic respiratory failure felt to be a combination of pneumonia and CHF with NSTEMI. Plan: Acute Hypoxic Respiratory Failure - still some CHF on CXR. Negative balance another liter last 24H, making him over 6 liters negative last 3 days. Cr at 1.88 with known CKD. Will try to get him off sedation and on CPAP and see if a good cough, some HTN from being awake ( to facilitate more diuresis) may, between the 2, improve his CXR and ventilator parameters enough to look at extubation. Abx to complete their course per 7 day plan. Hyperglycemia - insulin gtt with excellent control but requiring over 200 units /day to do so. Will advance his Lantus some but carefully with rising Cr. CAD - stable as best we know, continue ASA/Statin, off heparin gtt. Electrolytes - repleting as needed. D/W in detail at bedside daily. Critical Care Time: 40 minutes
[2019-06-25] MEDS ORDERED: Potassium Chloride* LIQUID 20 MEQ/15 ML UDC PO ONE (12:00)
[2019-06-25 12:03] LABS: ABS Basophils 0.1 10^3/ul (0-0.2); ABS Eosinophils 0.4 10^3/ul (0-0.6); ABS Lymphocytes 1.2 10^3/ul (1.0-4.8); ABS Monocytes 0.5 10^3/ul (0-0.8); ABS Neutrophils 5.7 10^3/ul (1.5-7.7); Eosinophil % 4.6 %; Hematocrit 29 % (42-52); Hemoglobin 9.3 g/dL (14.0-18.0); Lymphocyte % 15.5 %; Mean Corpuscular HGB Conc 32 g/dL (31-36); Mean Corpuscular Hemoglobin 26 pg (27-31); Mean Corpuscular Volume 81 fL (80-94); Mean Platelet Volume 7.7 fL (7.4-10.4); Nucleated Red Blood Cells % 0.1; Platelet Count 144 10^3/uL (150-450); Red Blood Count 3.56 10^6 /uL (4.18-5.48); Red Cell Distribution Width 16 % (10-15); White Blood Count 7.9 10^3/uL (3.5-10.8)
[2019-06-25] MEDS: Insulin GLARGINE(*) 1 UNITS UNIT SUBCUT SCH (12:13)
[2019-06-25 12:23] LABS: EGFR African American 42.7 (>60); EGFR Non-African American 35.3 (>60)
[2019-06-25 12:44] LABS: Activated Partial Thrombo Time 29.5 seconds (26.0-38.0); INR 1.08 (0.82-1.09)
[2019-06-25] MEDS: Heparin VIAL(*) 5000 UNITS/ML VIAL (FIVE THOUSAND) SUBCUT SCH ×2 (13:30→22:37)
[2019-06-25] MEDS: fentaNYL* 50 MCG/ML 2 ML VIAL (100 MCG VIAL) IV PRN (17:23)
[2019-06-25] MEDS: CMCS: Simvastatin TAB(NF) 20 MG TAB PO SCH (20:36)
[2019-06-25] MEDS: Acetaminophen ADULT LIQ* 650 MG/20.3 ML UDC PO PRN (22:37)
[2019-06-26] MEDS: Chlorhexidine MOUTHWASH 0.12%* 15 ML UDC SCH ×4 (00:17→12:13)
[2019-06-26] MEDS: Propofol* 100 ML IV SCH ×2 (00:25→05:28)
[2019-06-26] MEDS: ZOSYN 3.375 GM Q8H per EXTENDED INFUSION IVPB SCH ×6 (02:14→17:43)
[2019-06-26] MEDS: fentaNYL* 50 MCG/ML 2 ML VIAL (100 MCG VIAL) IV PRN ×4 (03:37→20:17)
[2019-06-26 05:01] LABS: ABS Basophils 0.1 10^3/ul (0-0.2); ABS Eosinophils 0.4 10^3/ul (0-0.6); ABS Lymphocytes 1.3 10^3/ul (1.0-4.8); ABS Monocytes 0.6 10^3/ul (0-0.8); ABS Neutrophils 8.2 10^3/ul (1.5-7.7); Eosinophil % 3.9 %; Hematocrit 34 % (42-52); Hemoglobin 10.7 g/dL (14.0-18.0); Lymphocyte % 12.4 %; Mean Corpuscular HGB Conc 32 g/dL (31-36); Mean Corpuscular Hemoglobin 26 pg (27-31); Mean Corpuscular Volume 81 fL (80-94); Mean Platelet Volume 8.4 fL (7.4-10.4); Platelet Count 194 10^3/uL (150-450); Red Blood Count 4.15 10^6 /uL (4.18-5.48); Red Cell Distribution Width 16 % (10-15); White Blood Count 10.7 10^3/uL (3.5-10.8)
[2019-06-26 05:19] LABS: CO2 Carbon Dioxide 29 mmol/L (22-32); Calcium 10.6 mg/dL (8.6-10.3); Chloride 100 mmol/L (101-111); Sodium 138 mmol/L (135-145)
[2019-06-26 05:25] LABS: BUN/Creatinine Ratio 19.8 (8-20); Blood Urea Nitrogen 39 mg/dL (6-24); EGFR Non-African American 33.9 (>60); Glucose 166 mg/dL (70-100); Phosphorus 4.4 mg/dL (2.5-5.0)
[2019-06-26] MEDS: Heparin VIAL(*) 5000 UNITS/ML VIAL (FIVE THOUSAND) SUBCUT SCH ×3 (05:28→21:15)
[2019-06-26 05:42] LABS: Anion Gap 9 mmol/L (2-11)
[2019-06-26 07:08] LABS: Potassium Redraw 4.2 mmol/L (3.5-5.0)
[2019-06-26] MEDS: Lansoprazole SUSP* ORALSYR 3 MG/ML PO SCH (08:36)
[2019-06-26] MEDS: Aspirin 81 mg CHEW TAB* 81 MG TAB.CHEW PO SCH (08:37)
[2019-06-26] MEDS: Insulin REGULAR(*) Infusion Protocol (IIP), non-DKA Adult Hyperglycemia (2017) IV SCH (10:19)
--- NOTE | 2019-06-26 11:17 | PN ---
Date of Service: 06/26/19 Critical Care Services: No events overnight. Vital Signs: Temp Pulse Resp BP SpO2 FiO2 38.0 C 94 27 162/76 96 30 06/26/19 10:46 06/26/19 10:46 06/26/19 11:06 06/26/19 10:46 06/26/19 10:46 06/26 08:00 Physical Exam: Gen: NAD HEENT: NCAT, intubated Lungs: coarse entry bilat Cardiac: S1S2 regular Abdomen: soft, NT, ND, +BS Extremities: no edema Neuro: grossly intact Fluid Balance (Past 24 Hours): I= O= Net Intake & Output 06/24/19 06/25/19 06/26/19 06/27/19 06:59 06:59 06:59 06:59 Intake Total 3903.4 2556.2 2610.7 Output Total 5730 3527 1135 246 Balance -1826.6 -970.8 1475.7 -246 Weight 111.5 kg 108.726 kg 110.5 kg Intake: IV Fluids 564 257 53 ABX - ZOSYN 244 20 KVO 10 NS (0.9%) 320 257 23 IVPB 333 242 552 ABX - ZOSYN 333 242 298 KVO 147 NS (0.9%) 107 Medicated IV 989.4 484.2 449.7 CC - Insulin 100.2 155.7 CC - Propofol/Diprivan 520.4 384 294 Heparin 469 Tube Feeding 1967 1493 1481 Tube Feeding Flush Amount 50 80 75 Output: [place] 5680 2667 1135 246 Liquid Stool 800 Tube Feeding Residual 50 60 Amount Wasted Other: Date of Last Bowel 06/24/19 Movement # Bowel Movements 1 Estimated Stool Amount Medium Large Labs: Laboratory Results - last 24 hr 06/25/19 06/25/19 06/25/19 09:59 11:28 11:53 WBC RBC Hgb Hct MCV MCH MCHC RDW Plt Count MPV Neut % (Auto) Lymph % (Auto) Norman % (Auto) Eos % (Auto) Baso % (Auto) Absolute Neuts (auto) Absolute Lymphs (auto) Absolute Monos (auto) Absolute Eos (auto) Absolute Basos (auto) Absolute Nucleated RBC Nucleated RBC % INR (Anticoag Therapy) APTT Sodium Potassium Chloride Carbon Dioxide Anion Gap BUN 34 H Creatinine 1.90 H Est GFR ( Amer) 42.7 Est GFR (Non-Af Amer) 35.3 BUN/Creatinine Ratio Glucose POC Glucose (mg/dL) 120 H 109 H Calcium Ionized Calcium Phosphorus Magnesium AST 06/25/19 06/25/19 06/25/19 11:53 12:19 12:21 WBC 7.9 RBC 3.56 L Hgb 9.3 L Hct 29 L MCV 81 MCH 26 L MCHC 32 RDW 16 H Plt Count 144 L MPV 7.7 Neut % (Auto) 72.6 Lymph % (Auto) 15.5 Norman % (Auto) 6.7 Eos % (Auto) 4.6 Baso % (Auto) 0.6 Absolute Neuts (auto) 5.7 Absolute Lymphs (auto) 1.2 Absolute Monos (auto) 0.5 Absolute Eos (auto) 0.4 Absolute Basos (auto) 0.1 Absolute Nucleated RBC 0.0 Nucleated RBC % 0.1 INR (Anticoag Therapy) 1.08 APTT 29.5 Sodium Potassium Chloride Carbon Dioxide Anion Gap BUN Creatinine Est GFR ( Amer) Est GFR (Non-Af Amer) BUN/Creatinine Ratio Glucose POC Glucose (mg/dL) 111 H Calcium Ionized Calcium Phosphorus Magnesium AST 06/25/19 06/25/19 06/25/19 13:06 13:30 14:12 WBC RBC Hgb Hct MCV MCH MCHC RDW Plt Count MPV Neut % (Auto) Lymph % (Auto) Norman % (Auto) Eos % (Auto) Baso % (Auto) Absolute Neuts (auto) Absolute Lymphs (auto) Absolute Monos (auto) Absolute Eos (auto) Absolute Basos (auto) Absolute Nucleated RBC Nucleated RBC % INR (Anticoag Therapy) APTT Sodium Potassium Chloride Carbon Dioxide Anion Gap BUN Creatinine Est GFR ( Amer) Est GFR (Non-Af Amer) BUN/Creatinine Ratio Glucose POC Glucose (mg/dL) 81 103 H 132 H Calcium Ionized Calcium Phosphorus Magnesium AST 06/25/19 06/25/19 06/25/19 14:59 15:41 17:01 WBC RBC Hgb Hct MCV MCH MCHC RDW Plt Count MPV Neut % (Auto) Lymph % (Auto) Norman % (Auto) Eos % (Auto) Baso % (Auto) Absolute Neuts (auto) Absolute Lymphs (auto) Absolute Monos (auto) Absolute Eos (auto) Absolute Basos (auto) Absolute Nucleated RBC Nucleated RBC % INR (Anticoag Therapy) APTT Sodium Potassium Chloride Carbon Dioxide Anion Gap BUN Creatinine Est GFR ( Amer) Est GFR (Non-Af Amer) BUN/Creatinine Ratio Glucose POC Glucose (mg/dL) 162 H 184 H 178 H Calcium Ionized Calcium Phosphorus Magnesium AST 06/25/19 06/25/19 06/25/19 17:43 18:38 19:35 WBC RBC Hgb Hct MCV MCH MCHC RDW Plt Count MPV Neut % (Auto) Lymph % (Auto) Norman % (Auto) Eos % (Auto) Baso % (Auto) Absolute Neuts (auto) Absolute Lymphs (auto) Absolute Monos (auto) Absolute Eos (auto) Absolute Basos (auto) Absolute Nucleated RBC Nucleated RBC % INR (Anticoag Therapy) APTT Sodium Potassium Chloride Carbon Dioxide Anion Gap BUN Creatinine Est GFR ( Amer) Est GFR (Non-Af Amer) BUN/Creatinine Ratio Glucose POC Glucose (mg/dL) 196 H 183 H 184 H Calcium Ionized Calcium Phosphorus Magnesium AST 06/25/19 06/25/19 06/25/19 20:37 21:23 22:39 WBC RBC Hgb Hct MCV MCH MCHC RDW Plt Count MPV Neut % (Auto) Lymph % (Auto) Norman % (Auto) Eos % (Auto) Baso % (Auto) Absolute Neuts (auto) Absolute Lymphs (auto) Absolute Monos (auto) Absolute Eos (auto) Absolute Basos (auto) Absolute Nucleated RBC Nucleated RBC % INR (Anticoag Therapy) APTT Sodium Potassium Chloride Carbon Dioxide Anion Gap BUN Creatinine Est GFR ( Amer) Est GFR (Non-Af Amer) BUN/Creatinine Ratio Glucose POC Glucose (mg/dL) 174 H 182 H 168 H Calcium Ionized Calcium Phosphorus Magnesium AST 06/25/19 06/26/19 06/26/19 23:33 00:18 01:01 WBC RBC Hgb Hct MCV MCH MCHC RDW Plt Count MPV Neut % (Auto) Lymph % (Auto) Norman % (Auto) Eos % (Auto) Baso % (Auto) Absolute Neuts (auto) Absolute Lymphs (auto) Absolute Monos (auto) Absolute Eos (auto) Absolute Basos (auto) Absolute Nucleated RBC Nucleated RBC % INR (Anticoag Therapy) APTT Sodium Potassium Chloride Carbon Dioxide Anion Gap BUN Creatinine Est GFR ( Amer) Est GFR (Non-Af Amer) BUN/Creatinine Ratio Glucose POC Glucose (mg/dL) 195 H 138 H 191 H Calcium Ionized Calcium Phosphorus Magnesium AST 06/26/19 06/26/19 06/26/19 02:10 03:06 04:17 WBC RBC Hgb Hct MCV MCH MCHC RDW Plt Count MPV Neut % (Auto) Lymph % (Auto) Norman % (Auto) Eos % (Auto) Baso % (Auto) Absolute Neuts (auto) Absolute Lymphs (auto) Absolute Monos (auto) Absolute Eos (auto) Absolute Basos (auto) Absolute Nucleated RBC Nucleated RBC % INR (Anticoag Therapy) APTT Sodium Potassium Chloride Carbon Dioxide Anion Gap BUN Creatinine Est GFR ( Amer) Est GFR (Non-Af Amer) BUN/Creatinine Ratio Glucose POC Glucose (mg/dL) 192 H 191 H 172 H Calcium Ionized Calcium Phosphorus Magnesium AST 06/26/19 06/26/19 06/26/19 04:35 04:35 04:35 WBC 10.7 RBC 4.15 L Hgb 10.7 L Hct 34 L MCV 81 MCH 26 L MCHC 32 RDW 16 H Plt Count 194 MPV 8.4 Neut % (Auto) 77.1 Lymph % (Auto) 12.4 Norman % (Auto) 5.7 Eos % (Auto) 3.9 Baso % (Auto) 0.9 Absolute Neuts (auto) 8.2 H Absolute Lymphs (auto) 1.3 Absolute Monos (auto) 0.6 Absolute Eos (auto) 0.4 Absolute Basos (auto) 0.1 Absolute Nucleated RBC 0.0 Nucleated RBC % 0.0 INR (Anticoag Therapy) APTT Sodium 138 Potassium TNP Chloride 100 L Carbon Dioxide 29 Anion Gap 9 BUN 39 H Creatinine 1.97 H Est GFR ( Amer) 41.0 Est GFR (Non-Af Amer) 33.9 BUN/Creatinine Ratio 19.8 Glucose 166 H POC Glucose (mg/dL) Calcium 10.6 H Ionized Calcium 1.30 Phosphorus 4.4 Magnesium TNP AST 06/26/19 06/26/19 06/26/19 05:05 06:11 06:39 WBC RBC Hgb Hct MCV MCH MCHC RDW Plt Count MPV Neut % (Auto) Lymph % (Auto) Norman % (Auto) Eos % (Auto) Baso % (Auto) Absolute Neuts (auto) Absolute Lymphs (auto) Absolute Monos (auto) Absolute Eos (auto) Absolute Basos (auto) Absolute Nucleated RBC Nucleated RBC % INR (Anticoag Therapy) APTT Sodium Potassium 4.2 Chloride Carbon Dioxide Anion Gap BUN Creatinine Est GFR ( Amer) Est GFR (Non-Af Amer) BUN/Creatinine Ratio Glucose POC Glucose (mg/dL) 159 H 149 H Calcium Ionized Calcium Phosphorus Magnesium AST 19 06/26/19 06/26/19 06/26/19 07:08 08:10 09:25 WBC RBC Hgb Hct MCV MCH MCHC RDW Plt Count MPV Neut % (Auto) Lymph % (Auto) Norman % (Auto) Eos % (Auto) Baso % (Auto) Absolute Neuts (auto) Absolute Lymphs (auto) Absolute Monos (auto) Absolute Eos (auto) Absolute Basos (auto) Absolute Nucleated RBC Nucleated RBC % INR (Anticoag Therapy) APTT Sodium Potassium Chloride Carbon Dioxide Anion Gap BUN Creatinine Est GFR ( Amer) Est GFR (Non-Af Amer) BUN/Creatinine Ratio Glucose POC Glucose (mg/dL) 153 H 128 H 130 H Calcium Ionized Calcium Phosphorus Magnesium AST 06/26/19 10:15 WBC RBC Hgb Hct MCV MCH MCHC RDW Plt Count MPV Neut % (Auto) Lymph % (Auto) Norman % (Auto) Eos % (Auto) Baso % (Auto) Absolute Neuts (auto) Absolute Lymphs (auto) Absolute Monos (auto) Absolute Eos (auto) Absolute Basos (auto) Absolute Nucleated RBC Nucleated RBC % INR (Anticoag Therapy) APTT Sodium Potassium Chloride Carbon Dioxide Anion Gap BUN Creatinine Est GFR ( Amer) Est GFR (Non-Af Amer) BUN/Creatinine Ratio Glucose POC Glucose (mg/dL) 107 H Calcium Ionized Calcium Phosphorus Magnesium AST Nutrition: Adriana TF, on hold for extubation Impression: 69 y/o male with resolving respiratory failure. Extubation this AM. Plan: Acute Hypoxic Respiratory Failure - resolving. Excellent SBT this AM, vastly improved mechanics, awake. Extubate. Hypervolemia / CHF - compensated clinically, extubate and see where his BP settles out regarding afterload reduction. CKD - Cr edging up to 1.9, actually positive balance 1200 cc last 24 hrs and extubating. CAD - ASA/Statin, his allergy profile certainly complicates standard management choices. When stable OOB to chair. Replete lytes as needed. GI/DVT prophylaxis. Start PO when OOB. PT. D/W in detail. Critical Care Time: 40 minutes
[2019-06-26] MEDS: Insulin GLARGINE(*) 1 UNITS UNIT SUBCUT SCH (12:02)
[2019-06-26] MEDS ORDERED: Dextrose 50% VIAL 50 ml IV PUSH PRN (16:02)
[2019-06-26] MEDS: Insulin LISPRO* 1 UNITS UNIT SUBCUT SCH ×2 (17:18→21:14)
[2019-06-26] MEDS: CMCS: Simvastatin TAB(NF) 20 MG TAB PO SCH (21:15)
[2019-06-27] MEDS: fentaNYL* 50 MCG/ML 2 ML VIAL (100 MCG VIAL) IV PRN ×2 (00:21→06:11)
[2019-06-27] MEDS: ZOSYN 3.375 GM Q8H per EXTENDED INFUSION IVPB SCH ×6 (01:55→17:22)
[2019-06-27 05:11] LABS: Calcium 10.3 mg/dL (8.6-10.3); EGFR African American 49.6 (>60); Magnesium 2.2 mg/dL (1.9-2.7); Phosphorus 3.3 mg/dL (2.5-5.0); Potassium 4.1 mmol/L (3.5-5.0)
[2019-06-27] MEDS: Heparin VIAL(*) 5000 UNITS/ML VIAL (FIVE THOUSAND) SUBCUT SCH ×3 (06:00→22:39)
[2019-06-27] MEDS: Insulin LISPRO* 1 UNITS UNIT SUBCUT SCH ×4 (08:08→22:35)
[2019-06-27] MEDS: Aspirin 81 mg CHEW TAB* 81 MG TAB.CHEW PO SCH (08:08)
[2019-06-27] MEDS: Lansoprazole SUSP* ORALSYR 3 MG/ML PO SCH (08:08)
--- NOTE | 2019-06-27 09:52 | PN ---
Date of Service: 06/27/19 Critical Care Services: Tolerated extubation well. Vital Signs: Temp Pulse Resp BP SpO2 FiO2 37.5 C 75 16 136/65 96 30 06/27/19 07:00 06/27/19 07:00 06/27/19 07:59 06/27/19 07:00 06/27/19 07:00 06/26 08:00 Physical Exam: Gen: NAD HEENT: NCAT, PERRL Lungs: decreased basilar entry Cardiac: S1S2 regular Abdomen: soft, NT, obese, ND, +BS Extremities: no edema Neuro: A%O, grossly non-focal Fluid Balance (Past 24 Hours): I= O= Net Intake & Output 06/25/19 06/26/19 06/27/19 06/28/19 06:59 06:59 06:59 06:59 Intake Total 2556.2 2610.7 420 Output Total 3527 1135 1736 Balance -970.8 1475.7 -1316 Weight 108.726 kg 110.5 kg 111 kg Intake: IV Fluids 257 53 31 ABX - ZOSYN 20 KVO 10 15 NS (0.9%) 257 23 16 IVPB 242 552 351 ABX - ZOSYN 242 298 351 KVO 147 NS (0.9%) 107 Medicated IV 484.2 449.7 38 CC - Insulin 100.2 155.7 38 CC - Propofol/Diprivan 384 294 Tube Feeding 1493 1481 Tube Feeding Flush Amount 80 75 Output: [place] 2667 1135 1436 Liquid Stool 800 300 Tube Feeding Residual 60 Amount Wasted Other: Date of Last Bowel 06/24/19 Movement # Bowel Movements 1 Estimated Stool Amount Large Labs: Laboratory Results - last 24 hr 06/25/19 06/25/19 06/25/19 02:47 03:53 04:58 Sodium Potassium Chloride Carbon Dioxide Anion Gap BUN Creatinine Est GFR ( Amer) Est GFR (Non-Af Amer) BUN/Creatinine Ratio Glucose POC Glucose (mg/dL) 175 H 170 H 165 H Calcium Ionized Calcium Phosphorus Magnesium 06/25/19 06/25/19 06/25/19 05:58 06:48 07:45 Sodium Potassium Chloride Carbon Dioxide Anion Gap BUN Creatinine Est GFR ( Amer) Est GFR (Non-Af Amer) BUN/Creatinine Ratio Glucose POC Glucose (mg/dL) 169 H 165 H 154 H Calcium Ionized Calcium Phosphorus Magnesium 06/25/19 06/26/19 06/26/19 09:01 10:15 11:15 Sodium Potassium Chloride Carbon Dioxide Anion Gap BUN Creatinine Est GFR ( Amer) Est GFR (Non-Af Amer) BUN/Creatinine Ratio Glucose POC Glucose (mg/dL) 135 H 107 H 114 H Calcium Ionized Calcium Phosphorus Magnesium 06/26/19 06/26/19 06/26/19 12:07 13:17 14:06 Sodium Potassium Chloride Carbon Dioxide Anion Gap BUN Creatinine Est GFR ( Amer) Est GFR (Non-Af Amer) BUN/Creatinine Ratio Glucose POC Glucose (mg/dL) 130 H 133 H 137 H Calcium Ionized Calcium Phosphorus Magnesium 06/26/19 06/26/19 06/26/19 14:57 15:18 17:16 Sodium Potassium Chloride Carbon Dioxide Anion Gap BUN Creatinine Est GFR ( Amer) Est GFR (Non-Af Amer) BUN/Creatinine Ratio Glucose POC Glucose (mg/dL) 99 115 H 124 H Calcium Ionized Calcium Phosphorus Magnesium 06/26/19 06/27/19 06/27/19 21:11 04:44 04:44 Sodium 141 Potassium 4.1 Chloride 104 Carbon Dioxide 30 Anion Gap 7 BUN 35 H Creatinine 1.67 H Est GFR ( Amer) 49.6 Est GFR (Non-Af Amer) 41.0 BUN/Creatinine Ratio 21.0 H Glucose 153 H POC Glucose (mg/dL) 149 H Calcium 10.3 Ionized Calcium 1.29 Phosphorus 3.3 Magnesium 2.2 06/27/19 08:04 Sodium Potassium Chloride Carbon Dioxide Anion Gap BUN Creatinine Est GFR ( Amer) Est GFR (Non-Af Amer) BUN/Creatinine Ratio Glucose POC Glucose (mg/dL) 155 H Calcium Ionized Calcium Phosphorus Magnesium Nutrition: CCHO diet today Impression: 69 y/o male PMH CAD/CKD/DM/HTN/HLD admitted with pneumonia and demand ischemia. Intubated 5 days. Extubated 06/26 and doing well on NC. OK to floor today to complete Abx and advance PT. Plan: Acute Hypoxic Resapirtaory Failure - resolved, tolerated extubation well, now on NC. Pneumonia - vastly improved, Day #5/7 Zosyn, no discrete bugs identified. Demand Ischemia/CAD - seen by Cardiology, ASA/Statin due to allergy profile ( Allergic BB and Plavix) Hypervolemia - resolved, autodiuresed another 1300 CC yesterday negative balance. CKD - Cr up to almost 2 yesterday and after extubation and autodiuresis has fallen to 1.6 today. IDDM - was on Lantus 33 at home, required insulin gtt at high dose while on vent and now on Lantus at 50 units/day with reasonable glycmeic control. this may be his DC dose. Still a little tired from his 5 days of sedation, needs PT, OOB and time. Continue GI/DVT prophylaxis. OK to floor.
[2019-06-27] MEDS: Acetaminophen ADULT LIQ* 650 MG/20.3 ML UDC PO PRN ×3 (10:28→22:34)
[2019-06-27] MEDS: Albuterol/Ipratropium NEB.SOL* Albuterol 2.5 MG/Ipratropium 0.5 MG 3 ML INH SCH ×2 (10:53→16:52)
[2019-06-27] MEDS: Insulin GLARGINE(*) 1 UNITS UNIT SUBCUT SCH (12:08)
[2019-06-27] MEDS: CMCS: Simvastatin TAB(NF) 20 MG TAB PO SCH (22:35)
[2019-06-28] MEDS: ZOSYN 3.375 GM Q8H per EXTENDED INFUSION IVPB SCH ×6 (01:55→17:55)
[2019-06-28] MEDS: Albuterol/Ipratropium NEB.SOL* Albuterol 2.5 MG/Ipratropium 0.5 MG 3 ML INH SCH ×2 (02:17→07:07)
[2019-06-28 04:49] LABS: ABS Eosinophils 0.2 10^3/ul (0-0.6); ABS Lymphocytes 0.9 10^3/ul (1.0-4.8); ABS Monocytes 0.5 10^3/ul (0-0.8); ABS Neutrophils 5.6 10^3/ul (1.5-7.7); Eosinophil % 3.4 %; Hematocrit 30 % (42-52); Lymphocyte % 11.8 %; Mean Corpuscular HGB Conc 33 g/dL (31-36); Mean Corpuscular Hemoglobin 26 pg (27-31); Mean Corpuscular Volume 80 fL (80-94); Mean Platelet Volume 7.7 fL (7.4-10.4); Platelet Count 198 10^3/uL (150-450); Red Cell Distribution Width 16 % (10-15); White Blood Count 7.3 10^3/uL (3.5-10.8)
[2019-06-28 05:12] LABS: BUN/Creatinine Ratio 21.3 (8-20); Calcium 9.9 mg/dL (8.6-10.3); EGFR African American 56.1 (>60); EGFR Non-African American 46.4 (>60); Potassium 3.8 mmol/L (3.5-5.0)
[2019-06-28] MEDS: Heparin VIAL(*) 5000 UNITS/ML VIAL (FIVE THOUSAND) SUBCUT SCH ×3 (05:59→22:09)
[2019-06-28] MEDS: Acetaminophen ADULT LIQ* 650 MG/20.3 ML UDC PO PRN (06:59)
[2019-06-28] MEDS ORDERED: Albuterol/Ipratropium NEB.SOL* Albuterol 2.5 MG/Ipratropium 0.5 MG 3 ML INH PRN (07:04)
--- NOTE | 2019-06-28 08:20 | PN ---
Subjective Date of Service: 06/28/19 Interval History: Mr. Knox had an uneventful night. He is feeling okay today. He is back to his 2L O2 and does not complain of cough or shortness of breath. He is sad that he is in the hospital for Thanksgiving but his is coming in later today. Objective Active Medications: Acetaminophen (Tylenol Adult Liq*) 650 mg PO Q4H PRN PRN Reason: MILD PAIN or TEMP > 100.4 Last Admin: 06/28/19 06:59 Dose: 650 mg Albuterol/Ipratropium (Duoneb (Albuterol 2.5 Mg/Ipratropium 0.5 Mg)) 1 neb INH Q6H PRN PRN Reason: SOB/WHEEZING Aspirin (Aspirin 81 Mg Chew Tab*) 81 mg PO DAILY [facility] Last Admin: 06/27/19 08:08 Dose: 81 mg Dextrose (Dextrose 50% Vial 50 Ml*) 25 ml IV PUSH .FOR FS < 60 - SS PRN PRN Reason: FS < 60 Heparin Sodium (Porcine) (Heparin Vial(*)) 5,000 units SUBCUT Q8HR [facility] Last Admin: 06/28/19 05:59 Dose: 5,000 units Piperacillin Sod/Tazobactam (Sod 3.375 gm/ Sodium Chloride) 100 mls @ 25 mls/ hr IVPB Q8H [facility] Last Admin: 06/28/19 01:55 Dose: 25 mls/hr Insulin Glargine (Lantus(*)) 50 units SUBCUT Q24H [facility] Last Admin: 06/27/19 12:08 Dose: 50 units Insulin Human Lispro (Humalog*) 0 units SUBCUT FS ACHS ICU [facility]; Protocol Last Admin: 06/27/19 22:35 Dose: 2 units Lansoprazole (Lansoprazole Susp* Oralsyr) 30 mg PO DAILY [facility] Last Admin: 06/27/19 08:08 Dose: 30 mg Pharmacy Consult (Zosyn Per Pharmacy*) 1 note FOLLOW UP .ZOSYN PER PHARMACY [facility] Simvastatin (Zocor(Nf)) 20 mg PO BEDTIME [facility] Last Admin: 06/27/19 22:35 Dose: 20 mg Vital Signs - 8 hr 06/28/19 06/28/19 06/28/19 02:17 03:15 08:03 Temperature 97.6 F 99 F Pulse Rate 73 86 80 Respiratory 20 18 18 Rate Blood Pressure 149/62 158/75 (mmHg) O2 Sat by Pulse 99 99 98 Oximetry Oxygen Devices in Use Now: Nasal Cannula Appearance: alert, no distress, occasional trouble with word finding but oriented and appropriate Eyes: No Scleral Icterus Ears/Nose/Mouth/Throat: - - dentures Neck: NL Appearance and Movements; NL JVP Respiratory: Symmetrical Chest Expansion and Respiratory Effort, - - he has difficulty maintaining strength to sit upright; lung rascon are clear anteriorly and posteriorly from what I can hear Cardiovascular: NL Sounds; No Murmurs; No JVD, RRR Abdominal: NL Sounds; No Tenderness; No Distention Lymphatic: No Cervical Adenopathy Extremities: - - chronic hyperpigmented venous stasis changes and b/t TMAs, distal pulses 1+, legs warm Neurological: - - strength 4/5 in all extremities Result Diagrams: 06/28/19 04:43 06/28/19 04:43 Microbiology and Other Data: Microbiology 06/21/19 08:40 Aerobic Blood Culture - Final Blood Venous No Growth Day 5 Anaerobic Blood Culture - Final No Growth Day 5 06/21/19 08:35 Aerobic Blood Culture - Final Blood Venous No Growth Day 5 Anaerobic Blood Culture - Final No Growth Day 5 06/21/19 08:22 Urine Culture - Final Urine No Growth (<1,000 CFU/mL) 06/21/19 10:55 Nasal Screen MRSA (PCR) - Final Nasal Mrsa Not Detected Assess/Plan/Problems-Billing Assessment: 69 year old man with history of CAD, PVD, CKD admitted on 06/21/19 with unresponsiveness and intubated, later found to have sepsis from pneumonia, extubated 06/27 and transferred to the floor. - Patient Problems (1) Acute respiratory failure with hypoxia Current Visit: Yes Status: Acute Code(s): J96.01 - ACUTE RESPIRATORY FAILURE WITH HYPOXIA SNOMED Code(s): 35256843 Comment: now resolved and back to his baseline requirement of 2L round the clock mostly related to pneumonia, maybe some component of edema and received both antibiotics and diuretics in the ICU (2) Community acquired pneumonia Current Visit: Yes Status: Acute Code(s): J18.9 - PNEUMONIA, UNSPECIFIED ORGANISM SNOMED Code(s): 563600322 Comment: today is day 6 of pip/tazo no organisms identified (3) NSTEMI (non-ST elevated myocardial infarction) Current Visit: Yes Status: Acute Code(s): I21.4 - NON-ST ELEVATION (NSTEMI) MYOCARDIAL INFARCTION SNOMED Code(s): 82788231 Comment: more likely type 2 related to sepsis, but was treated empirically with 48 hours of heparin drip in the ICU he has allergies to metoprolol and plavix but he does not know what the allergy is. will avoid. continue asa/statin (4) Acute renal failure Current Visit: No Status: Acute Comment: back to baseline of ~1.5 (5) Anemia Current Visit: No Status: Acute Priority: Medium Code(s): D64.9 - ANEMIA, UNSPECIFIED SNOMED Code(s): 233362255 Comment: stable and at baseline previously iron deficient (6) CAD (coronary artery disease) Current Visit: No Status: Acute Priority: Medium Code(s): I25.10 - ATHSCL HEART DISEASE OF [place] CORONARY ARTERY W/O ANG PCTRS SNOMED Code(s): 32808047 Comment: Continue aspirin, atorvastatin (7) Chronic pain Current Visit: No Status: Acute Code(s): G89.29 - OTHER CHRONIC PAIN SNOMED Code(s): 43812493 Comment: will add back home oxycodone today; held while intubated (8) Weakness Current Visit: No Status: Acute Code(s): R53.1 - WEAKNESS SNOMED Code(s): 62854784 Comment: continue PT; may need rehab prior to discharge. is mostly wheelchair bound at home, but is currently requiring a leti lift (9) Type 2 diabetes mellitus Current Visit: No Status: Chronic Priority: High Comment: on more lantus here than at home (50U vs. 33U) will follow today as diet increases
[2019-06-28] MEDS: Aspirin 81 mg CHEW TAB* 81 MG TAB.CHEW PO SCH (08:45)
[2019-06-28] MEDS: Ferrous Sulfate TAB* 325 MG PO SCH (08:45)
[2019-06-28] MEDS: Insulin LISPRO* 1 UNITS UNIT SUBCUT SCH ×4 (08:46→22:09)
[2019-06-28] MEDS: oxyCODONE SR TAB(*) 10 MG TAB.SR PO SCH ×2 (08:47→22:07)
[2019-06-28] MEDS: Lansoprazole SUSP* ORALSYR 3 MG/ML PO SCH (09:59)
[2019-06-28] MEDS: oxyCODONE TAB* 5 MG TAB PO PRN ×2 (10:04→17:58)
[2019-06-28] MEDS: Insulin GLARGINE(*) 1 UNITS UNIT SUBCUT SCH (12:27)
[2019-06-28] MEDS: CMCS: Simvastatin TAB(NF) 20 MG TAB PO SCH (22:08)
[2019-06-29] MEDS: ZOSYN 3.375 GM Q8H per EXTENDED INFUSION IVPB SCH ×6 (02:33→17:46)
[2019-06-29] MEDS: Heparin VIAL(*) 5000 UNITS/ML VIAL (FIVE THOUSAND) SUBCUT SCH ×3 (05:30→21:19)
[2019-06-29] MEDS: Ferrous Sulfate TAB* 325 MG PO SCH (07:46)
[2019-06-29] MEDS: oxyCODONE TAB* 5 MG TAB PO PRN ×2 (07:46→12:49)
[2019-06-29] MEDS: Aspirin 81 mg CHEW TAB* 81 MG TAB.CHEW PO SCH (07:46)
[2019-06-29] MEDS: Insulin LISPRO* 1 UNITS UNIT SUBCUT SCH ×4 (08:40→20:18)
[2019-06-29] MEDS: oxyCODONE SR TAB(*) 10 MG TAB.SR PO SCH ×2 (08:41→20:17)
[2019-06-29] MEDS: Lansoprazole SUSP* ORALSYR 3 MG/ML PO SCH (10:53)
[2019-06-29] MEDS ORDERED: Senna TAB 8.6 mg* TAB PO STA (10:59)
--- NOTE | 2019-06-29 11:44 | PN ---
Subjective Date of Service: 06/29/19 Interval History: Patient states breathing is OK. He has O2 at 2L at baseline at home. Reports constipation, wants bowel medication. At home he can transfer bed to wheelchair, wheelchair to toilet. Denies chest pain. Family History: Unchanged from Admission Social History: Unchanged from Admission Past Medical History: Unchanged from Admission Objective Active Medications: Acetaminophen (Tylenol Adult Liq*) 650 mg PO Q4H PRN PRN Reason: MILD PAIN or TEMP > 100.4 Last Admin: 06/28/19 06:59 Dose: 650 mg Albuterol/Ipratropium (Duoneb (Albuterol 2.5 Mg/Ipratropium 0.5 Mg)) 1 neb INH Q6H PRN PRN Reason: SOB/WHEEZING Aspirin (Aspirin 81 Mg Chew Tab*) 81 mg PO DAILY [facility] Last Admin: 06/29/19 07:46 Dose: 81 mg Dextrose (Dextrose 50% Vial 50 Ml*) 25 ml IV PUSH .FOR FS < 60 - SS PRN PRN Reason: FS < 60 Docusate Sodium (Colace Cap*) 100 mg PO BID [facility] Ferrous Sulfate (Ferrous Sulfate Tab*) 325 mg PO DAILY [facility] Last Admin: 06/29/19 07:46 Dose: 325 mg Heparin Sodium (Porcine) (Heparin Vial(*)) 5,000 units SUBCUT Q8HR [facility] Last Admin: 06/29/19 05:30 Dose: 5,000 units Piperacillin Sod/Tazobactam (Sod 3.375 gm/ Sodium Chloride) 100 mls @ 25 mls/ hr IVPB Q8H [facility] Last Admin: 06/29/19 10:53 Dose: 25 mls/hr Insulin Glargine (Lantus(*)) 50 units SUBCUT Q24H [facility] Last Admin: 06/28/19 12:27 Dose: 50 units Insulin Human Lispro (Humalog*) 0 units SUBCUT FS ACHS ICU [facility]; Protocol Last Admin: 06/29/19 08:40 Dose: 2 units Lansoprazole (Lansoprazole Susp* Oralsyr) 30 mg PO DAILY [facility] Last Admin: 06/29/19 10:53 Dose: 30 mg Oxycodone HCl (Oxycontin(*)) 10 mg PO BID [facility] Last Admin: 06/29/19 08:41 Dose: 10 mg Oxycodone HCl (Roxycodone Tab*) 5 mg PO QID PRN PRN Reason: PAIN - MODERATE Last Admin: 06/29/19 07:46 Dose: 5 mg Simvastatin (Zocor(Nf)) 20 mg PO BEDTIME [facility] Last Admin: 06/28/19 22:08 Dose: 20 mg Vital Signs - 8 hr 06/29/19 06/29/19 06/29/19 07:46 07:50 08:06 Temperature 36.6 C Pulse Rate 85 Respiratory 16 16 18 Rate Blood Pressure 147/67 (mmHg) O2 Sat by Pulse 100 Oximetry 06/29/19 08:41 Temperature Pulse Rate Respiratory 16 Rate Blood Pressure (mmHg) O2 Sat by Pulse Oximetry Oxygen Devices in Use Now: Nasal Cannula Appearance: Alert, no distress Ears/Nose/Mouth/Throat: Clear Oropharnyx Neck: NL Appearance and Movements; NL JVP Respiratory: Symmetrical Chest Expansion and Respiratory Effort, - - ronchi bilat lower lobes Cardiovascular: NL Sounds; No Murmurs; No JVD, RRR, - - trace LE edema, both lower legs in AFOs Abdominal: NL Sounds; No Tenderness; No Distention, No Hepatosplenomegaly Neurological: Alert and Oriented x 3 Nutrition: Taking PO's Result Diagrams: 06/28/19 04:43 06/28/19 04:43 Assess/Plan/Problems-Billing Assessment: 69 year old man with history of CAD, PVD, CKD admitted on 06/21/19 with unresponsiveness and intubated, later found to have sepsis from pneumonia, extubated 06/27 and transferred to the floor. - Patient Problems (1) Acute respiratory failure with hypoxia Current Visit: Yes Status: Acute Priority: High Code(s): J96.01 - ACUTE RESPIRATORY FAILURE WITH HYPOXIA SNOMED Code(s): 88147633 Comment: -Due to community-acquired pneumonia -now resolved and back to his baseline requirement of 2L round the clock -On day 6 of Zosyn, cultures negative (2) NSTEMI (non-ST elevated myocardial infarction) Current Visit: Yes Status: Acute Priority: Medium Code(s): I21.4 - NON-ST ELEVATION (NSTEMI) MYOCARDIAL INFARCTION SNOMED Code(s): 96703251 Comment: -Cardiology consult appreciated -avoiding beta-kurtis and Plavix due to ?allergies -continue asa/statin -Should have outpatient stress test once recovered (3) Type 2 diabetes mellitus Current Visit: No Status: Chronic Priority: Medium Comment: -Blood sugars in goal range -Continue present dose lantus (4) (HFpEF) heart failure with preserved ejection fraction Current Visit: Yes Status: Acute Priority: Medium Code(s): I50.30 - UNSPECIFIED DIASTOLIC (CONGESTIVE) HEART FAILURE SNOMED Code(s): 051974134 Comment: -Patient required IV diuresis in ICU when intubated -May be helping resolve pleural effusion -Echo shows EF in 50% range -Will start oral lasix as advised by cardiology, follow BMP. (5) DVT prophylaxis Current Visit: No Status: Acute Priority: Medium Code(s): VEM0157 - SNOMED Code(s): 291724655 Comment: - Heparin SQ Status and Disposition: inpatient
[2019-06-29] MEDS: Insulin GLARGINE(*) 1 UNITS UNIT SUBCUT SCH (12:43)
[2019-06-29] MEDS: Furosemide TAB* 40 MG PO SCH (12:44)
[2019-06-29] MEDS ORDERED: Piperacillin/Tazobac ADVAN(*) 3.375 GM in NS 0.9% 100 ML* 100 ML IVPB ONE (18:00)
[2019-06-29] MEDS: Docusate CAP* 100 MG PO SCH (20:18)
[2019-06-29] MEDS: CMCS: Simvastatin TAB(NF) 20 MG TAB PO SCH (21:14)
[2019-06-30 05:29] LABS: ABS Basophils 0.1 10^3/ul (0-0.2); ABS Eosinophils 0.3 10^3/ul (0-0.6); ABS Lymphocytes 1.1 10^3/ul (1.0-4.8); ABS Monocytes 0.5 10^3/ul (0-0.8); ABS Neutrophils 5.9 10^3/ul (1.5-7.7); Eosinophil % 3.5 %; Hematocrit 32 % (42-52); Hemoglobin 10.5 g/dL (14.0-18.0); Lymphocyte % 13.9 %; Mean Corpuscular HGB Conc 33 g/dL (31-36); Mean Corpuscular Hemoglobin 26 pg (27-31); Mean Corpuscular Volume 81 fL (80-94); Mean Platelet Volume 7.9 fL (7.4-10.4); Nucleated Red Blood Cells % 0.1; Platelet Count 260 10^3/uL (150-450); Red Blood Count 3.98 10^6 /uL (4.18-5.48); Red Cell Distribution Width 16 % (10-15); White Blood Count 7.8 10^3/uL (3.5-10.8)
[2019-06-30] MEDS: Heparin VIAL(*) 5000 UNITS/ML VIAL (FIVE THOUSAND) SUBCUT SCH ×3 (05:33→21:51)
[2019-06-30 05:46] LABS: BUN/Creatinine Ratio 19.7 (8-20); C Reactive Protein 17.91 mg/L (<8.01); Calcium 10.2 mg/dL (8.6-10.3); EGFR African American 59.8 (>60); EGFR Non-African American 49.4 (>60); Potassium 3.5 mmol/L (3.5-5.0)
[2019-06-30] MEDS: Insulin LISPRO* 1 UNITS UNIT SUBCUT SCH ×4 (08:29→21:51)
[2019-06-30] MEDS: oxyCODONE SR TAB(*) 10 MG TAB.SR PO SCH ×2 (09:39→21:50)
[2019-06-30] MEDS: Furosemide TAB* 40 MG PO SCH (09:39)
[2019-06-30] MEDS: Ferrous Sulfate TAB* 325 MG PO SCH (09:39)
[2019-06-30] MEDS: Aspirin 81 mg CHEW TAB* 81 MG TAB.CHEW PO SCH (09:39)
[2019-06-30] MEDS: Docusate CAP* 100 MG PO SCH ×3 (09:39→21:50)
[2019-06-30] MEDS: Lansoprazole SUSP* ORALSYR 3 MG/ML PO SCH (09:44)
[2019-06-30] MEDS: Insulin GLARGINE(*) 1 UNITS UNIT SUBCUT SCH (13:11)
[2019-06-30] MEDS: oxyCODONE TAB* 5 MG TAB PO PRN ×2 (13:23→17:30)
--- NOTE | 2019-06-30 16:09 | PN ---
Subjective Date of Service: 06/30/19 Interval History: Reports improvement in breathing.On 2l at home.No CP Family History: Unchanged from Admission Social History: Unchanged from Admission Past Medical History: Unchanged from Admission Objective Active Medications: Acetaminophen (Tylenol Adult Liq*) 650 mg PO Q4H PRN PRN Reason: MILD PAIN or TEMP > 100.4 Last Admin: 06/28/19 06:59 Dose: 650 mg Albuterol/Ipratropium (Duoneb (Albuterol 2.5 Mg/Ipratropium 0.5 Mg)) 1 neb INH Q6H PRN PRN Reason: SOB/WHEEZING Aspirin (Aspirin 81 Mg Chew Tab*) 81 mg PO DAILY [facility] Last Admin: 06/30/19 09:39 Dose: 81 mg Dextrose (Dextrose 50% Vial 50 Ml*) 25 ml IV PUSH .FOR FS < 60 - SS PRN PRN Reason: FS < 60 Docusate Sodium (Colace Cap*) 100 mg PO BID [facility] Last Admin: 06/30/19 09:46 Dose: 100 mg Ferrous Sulfate (Ferrous Sulfate Tab*) 325 mg PO DAILY [facility] Last Admin: 06/30/19 09:39 Dose: 325 mg Furosemide (Lasix Tab*) 40 mg PO DAILY [facility] Last Admin: 06/30/19 09:39 Dose: 40 mg Heparin Sodium (Porcine) (Heparin Vial(*)) 5,000 units SUBCUT Q8HR [facility] Last Admin: 06/30/19 13:12 Dose: 5,000 units Insulin Glargine (Lantus(*)) 50 units SUBCUT Q24H [facility] Last Admin: 06/30/19 13:11 Dose: 50 units Insulin Human Lispro (Humalog*) 0 units SUBCUT FS ACHS ICU [facility]; Protocol Last Admin: 06/30/19 13:11 Dose: 6 units Lansoprazole (Lansoprazole Susp* Oralsyr) 30 mg PO DAILY [facility] Last Admin: 06/30/19 09:44 Dose: 30 mg Oxycodone HCl (Oxycontin(*)) 10 mg PO BID [facility] Last Admin: 06/30/19 09:39 Dose: 10 mg Oxycodone HCl (Roxycodone Tab*) 5 mg PO QID PRN PRN Reason: PAIN - MODERATE Last Admin: 06/30/19 13:23 Dose: 5 mg Simvastatin (Zocor(Nf)) 20 mg PO BEDTIME [facility] Last Admin: 06/29/19 21:14 Dose: 20 mg Vital Signs - 8 hr 06/30/19 06/30/19 06/30/19 09:39 11:15 13:23 Temperature 97.8 F Pulse Rate 85 Respiratory 18 18 20 Rate Blood Pressure 135/65 (mmHg) O2 Sat by Pulse 95 Oximetry Oxygen Devices in Use Now: None Eyes: No Scleral Icterus Ears/Nose/Mouth/Throat: NL Teeth, Lips, Gums Neck: NL Appearance and Movements; NL JVP Respiratory: Symmetrical Chest Expansion and Respiratory Effort, Clear to Auscultation Cardiovascular: NL Sounds; No Murmurs; No JVD Abdominal: NL Sounds; No Tenderness; No Distention Extremities: - - Bilateral amputation and prosthesis Result Diagrams: 06/30/19 05:02 06/30/19 05:02 Microbiology and Other Data: Microbiology 06/21/19 08:40 Aerobic Blood Culture - Final Blood Venous No Growth Day 5 Anaerobic Blood Culture - Final No Growth Day 5 06/21/19 08:35 Aerobic Blood Culture - Final Blood Venous No Growth Day 5 Anaerobic Blood Culture - Final No Growth Day 5 06/21/19 08:22 Urine Culture - Final Urine No Growth (<1,000 CFU/mL) 06/21/19 10:55 Nasal Screen MRSA (PCR) - Final Nasal Mrsa Not Detected Assess/Plan/Problems-Billing Assessment: 69 year old man with history of CAD, PVD, CKD admitted on 06/21/19 with unresponsiveness and intubated, later found to have sepsis from pneumonia, extubated 06/27 and transferred to the floor. - Patient Problems (1) Acute respiratory failure with hypoxia Current Visit: Yes Status: Acute Priority: High Code(s): J96.01 - ACUTE RESPIRATORY FAILURE WITH HYPOXIA SNOMED Code(s): 52468455 Comment: -Due to community-acquired pneumonia -now resolved and back to his baseline requirement of 2L round the clock - day 02/04 of Zosyn, cultures negative. Completed (2) (HFpEF) heart failure with preserved ejection fraction Current Visit: Yes Status: Acute Priority: Medium Code(s): I50.30 - UNSPECIFIED DIASTOLIC (CONGESTIVE) HEART FAILURE SNOMED Code(s): 718994735 Comment: -Patient required IV diuresis in ICU when intubated -May be helping resolve pleural effusion -Echo shows EF in 50% range -On oral lasix as advised by cardiology, follow BMP. (3) NSTEMI (non-ST elevated myocardial infarction) Current Visit: Yes Status: Acute Priority: Medium Code(s): I21.4 - NON-ST ELEVATION (NSTEMI) MYOCARDIAL INFARCTION SNOMED Code(s): 80699084 Comment: -Cardiology consult appreciated -avoiding beta-kurtis and Plavix due to ?allergies -continue asa/statin -Should have outpatient stress test once recovered -Follows with Dr Agustin as an outpatient (4) Type 2 diabetes mellitus Current Visit: No Status: Chronic Priority: Medium Comment: -Blood sugars in goal range -Continue present dose lantus -multiple diabetic complications (5) DVT prophylaxis Current Visit: No Status: Acute Priority: Medium Code(s): ADP2925 - SNOMED Code(s): 976263301 Status and Disposition: inpatient PT/Ot Claudine louie
[2019-06-30] MEDS: CMCS: Simvastatin TAB(NF) 20 MG TAB PO SCH (21:50)
[2019-07-01] MEDS ORDERED: Magnesium CITRATE* 300 ML BTL PO ONE (01:03)
[2019-07-01 05:26] LABS: ABS Basophils 0.1 10^3/ul (0-0.2); ABS Eosinophils 0.3 10^3/ul (0-0.6); ABS Lymphocytes 1.1 10^3/ul (1.0-4.8); ABS Monocytes 0.5 10^3/ul (0-0.8); Hematocrit 32 % (42-52); Hemoglobin 10.5 g/dL (14.0-18.0); Lymphocyte % 12.2 %; Mean Corpuscular HGB Conc 33 g/dL (31-36); Mean Corpuscular Hemoglobin 26 pg (27-31); Mean Corpuscular Volume 80 fL (80-94); Platelet Count 277 10^3/uL (150-450); Red Blood Count 3.99 10^6 /uL (4.18-5.48); Red Cell Distribution Width 16 % (10-15); White Blood Count 8.9 10^3/uL (3.5-10.8)
[2019-07-01 05:46] LABS: BUN/Creatinine Ratio 19.7 (8-20); Calcium 9.9 mg/dL (8.6-10.3); EGFR African American 59.8 (>60); EGFR Non-African American 49.4 (>60); Potassium 3.5 mmol/L (3.5-5.0)
[2019-07-01] MEDS: Heparin VIAL(*) 5000 UNITS/ML VIAL (FIVE THOUSAND) SUBCUT SCH ×3 (05:50→21:27)
[2019-07-01] MEDS: oxyCODONE SR TAB(*) 10 MG TAB.SR PO SCH ×2 (09:23→21:27)
[2019-07-01] MEDS: Insulin LISPRO* 1 UNITS UNIT SUBCUT SCH ×4 (09:23→21:25)
[2019-07-01] MEDS: Ferrous Sulfate TAB* 325 MG PO SCH (09:24)
[2019-07-01] MEDS: Furosemide TAB* 40 MG PO SCH (09:24)
[2019-07-01] MEDS: Docusate CAP* 100 MG PO SCH ×2 (09:27→21:25)
[2019-07-01] MEDS: Aspirin 81 mg CHEW TAB* 81 MG TAB.CHEW PO SCH (09:28)
[2019-07-01] MEDS: Lansoprazole SUSP* ORALSYR 3 MG/ML PO SCH (09:28)
--- NOTE | 2019-07-01 11:27 | PN ---
Subjective Date of Service: 07/01/19 Interval History: Reports feeling better.SOB improving. Back to baseline 2l oxygen. Family History: Unchanged from Admission Social History: Unchanged from Admission Past Medical History: Unchanged from Admission Objective Active Medications: Acetaminophen (Tylenol Adult Liq*) 650 mg PO Q4H PRN PRN Reason: MILD PAIN or TEMP > 100.4 Last Admin: 06/28/19 06:59 Dose: 650 mg Albuterol/Ipratropium (Duoneb (Albuterol 2.5 Mg/Ipratropium 0.5 Mg)) 1 neb INH Q6H PRN PRN Reason: SOB/WHEEZING Aspirin (Aspirin 81 Mg Chew Tab*) 81 mg PO DAILY [facility] Last Admin: 07/01/19 09:28 Dose: 81 mg Dextrose (Dextrose 50% Vial 50 Ml*) 25 ml IV PUSH .FOR FS < 60 - SS PRN PRN Reason: FS < 60 Docusate Sodium (Colace Cap*) 100 mg PO BID [facility] Last Admin: 07/01/19 09:27 Dose: 100 mg Ferrous Sulfate (Ferrous Sulfate Tab*) 325 mg PO DAILY [facility] Last Admin: 07/01/19 09:24 Dose: 325 mg Furosemide (Lasix Tab*) 40 mg PO DAILY [facility] Last Admin: 07/01/19 09:24 Dose: 40 mg Heparin Sodium (Porcine) (Heparin Vial(*)) 5,000 units SUBCUT Q8HR [facility] Last Admin: 07/01/19 05:50 Dose: 5,000 units Insulin Glargine (Lantus(*)) 50 units SUBCUT Q24H [facility] Last Admin: 06/30/19 13:11 Dose: 50 units Insulin Human Lispro (Humalog*) 0 units SUBCUT FS ACHS ICU [facility]; Protocol Last Admin: 07/01/19 09:23 Dose: 2 units Lansoprazole (Lansoprazole Susp* Oralsyr) 30 mg PO DAILY [facility] Last Admin: 07/01/19 09:28 Dose: 30 mg Oxycodone HCl (Oxycontin(*)) 10 mg PO BID [facility] Last Admin: 07/01/19 09:23 Dose: 10 mg Oxycodone HCl (Roxycodone Tab*) 5 mg PO QID PRN PRN Reason: PAIN - MODERATE Last Admin: 06/30/19 17:30 Dose: 5 mg Simvastatin (Zocor(Nf)) 20 mg PO BEDTIME [facility] Last Admin: 06/30/19 21:50 Dose: 20 mg Vital Signs - 8 hr 07/01/19 07/01/19 07/01/19 07:47 07:59 09:23 Temperature 97.6 F Pulse Rate 74 Respiratory 19 18 18 Rate Blood Pressure 155/66 (mmHg) O2 Sat by Pulse 98 Oximetry Oxygen Devices in Use Now: Nasal Cannula Eyes: No Scleral Icterus Ears/Nose/Mouth/Throat: NL Teeth, Lips, Gums Neck: NL Appearance and Movements; NL JVP Respiratory: Symmetrical Chest Expansion and Respiratory Effort, Clear to Auscultation Cardiovascular: NL Sounds; No Murmurs; No JVD Extremities: - - bilateral amputation and prosthesis Neurological: Alert and Oriented x 3 Result Diagrams: 07/01/19 04:47 07/01/19 04:47 Microbiology and Other Data: Microbiology 06/21/19 08:40 Aerobic Blood Culture - Final Blood Venous No Growth Day 5 Anaerobic Blood Culture - Final No Growth Day 5 06/21/19 08:35 Aerobic Blood Culture - Final Blood Venous No Growth Day 5 Anaerobic Blood Culture - Final No Growth Day 5 06/21/19 08:22 Urine Culture - Final Urine No Growth (<1,000 CFU/mL) 06/21/19 10:55 Nasal Screen MRSA (PCR) - Final Nasal Mrsa Not Detected Assess/Plan/Problems-Billing Assessment: 69 year old man with history of CAD, PVD, CKD admitted on 06/21/19 with unresponsiveness and intubated, later found to have sepsis from pneumonia, extubated 06/27 and transferred to the floor. - Patient Problems (1) Acute respiratory failure with hypoxia Current Visit: Yes Status: Acute Priority: High Code(s): J96.01 - ACUTE RESPIRATORY FAILURE WITH HYPOXIA SNOMED Code(s): 38574140 Comment: -Due to community-acquired pneumonia -now resolved and back to his baseline requirement of 2L round the clock - day 02/04 of Zosyn, cultures negative. Completed (2) (HFpEF) heart failure with preserved ejection fraction Current Visit: Yes Status: Acute Priority: Medium Code(s): I50.30 - UNSPECIFIED DIASTOLIC (CONGESTIVE) HEART FAILURE SNOMED Code(s): 009210947 Comment: -Patient required IV diuresis in ICU when intubated -May be helping resolve pleural effusion -Echo shows EF in 50% range -On oral lasix as advised by cardiology, follow BMP. (3) NSTEMI (non-ST elevated myocardial infarction) Current Visit: Yes Status: Acute Priority: Medium Code(s): I21.4 - NON-ST ELEVATION (NSTEMI) MYOCARDIAL INFARCTION SNOMED Code(s): 20999282 Comment: -Cardiology consult appreciated -avoiding beta-kurtis and Plavix due to ?allergies -continue asa/statin -Should have outpatient stress test/ cath eval once recovered -Follows with Dr Agustin as an outpatient and discussed with pt and has an appt in 1 week (4) Type 2 diabetes mellitus Current Visit: No Status: Chronic Priority: Medium Comment: -Blood sugars in goal range -Continue present dose lantus -multiple diabetic complications (5) DVT prophylaxis Current Visit: No Status: Acute Priority: Medium Code(s): DIW6107 - SNOMED Code(s): 064786090 Status and Disposition: inpatient PT/Ot eval.Pt reports that he wants to go home however awaiting further PT eval.Discussed with case and . prefers rehab if warranted as he has to be able to transfer. Awaiting further eval. Anticipate discharge 1-2 days
[2019-07-01] MEDS: oxyCODONE TAB* 5 MG TAB PO PRN ×2 (12:30→17:17)
[2019-07-01] MEDS: Insulin GLARGINE(*) 1 UNITS UNIT SUBCUT SCH (12:31)
[2019-07-01] MEDS: CMCS: Simvastatin TAB(NF) 20 MG TAB PO SCH (21:27)
[2019-07-02] MEDS: Heparin VIAL(*) 5000 UNITS/ML VIAL (FIVE THOUSAND) SUBCUT SCH ×3 (05:43→22:15)
[2019-07-02] MEDS: Docusate CAP* 100 MG PO SCH ×2 (07:53→22:15)
[2019-07-02] MEDS: Lansoprazole SUSP* ORALSYR 3 MG/ML PO SCH (07:53)
[2019-07-02] MEDS: Ferrous Sulfate TAB* 325 MG PO SCH (07:53)
[2019-07-02] MEDS: Aspirin 81 mg CHEW TAB* 81 MG TAB.CHEW PO SCH (07:53)
[2019-07-02] MEDS: oxyCODONE SR TAB(*) 10 MG TAB.SR PO SCH ×2 (07:54→22:16)
[2019-07-02] MEDS: Furosemide TAB* 40 MG PO SCH (07:54)
[2019-07-02] MEDS: Insulin LISPRO* 1 UNITS UNIT SUBCUT SCH ×4 (09:44→22:15)
[2019-07-02] MEDS: oxyCODONE TAB* 5 MG TAB PO PRN (10:11)
[2019-07-02 10:25] LABS: ABS Basophils 0.1 10^3/ul (0-0.2); ABS Eosinophils 0.2 10^3/ul (0-0.6); ABS Lymphocytes 1.3 10^3/ul (1.0-4.8); ABS Monocytes 0.6 10^3/ul (0-0.8); ABS Neutrophils 9.2 10^3/ul (1.5-7.7); Eosinophil % 1.7 %; Hematocrit 34 % (42-52); Hemoglobin 11.4 g/dL (14.0-18.0); Lymphocyte % 11.5 %; Mean Corpuscular HGB Conc 33 g/dL (31-36); Mean Corpuscular Hemoglobin 27 pg (27-31); Mean Corpuscular Volume 80 fL (80-94); Platelet Count 335 10^3/uL (150-450); Red Blood Count 4.27 10^6 /uL (4.18-5.48); Red Cell Distribution Width 16 % (10-15); White Blood Count 11.4 10^3/uL (3.5-10.8)
[2019-07-02 10:41] LABS: BUN/Creatinine Ratio 19.4 (8-20); EGFR African American 50.3 (>60); EGFR Non-African American 41.6 (>60); Potassium 3.7 mmol/L (3.5-5.0)
--- NOTE | 2019-07-02 11:33 | PN ---
Subjective Date of Service: 07/02/19 Interval History: Patient states breathing is at baseline. He states he can get from bed to chair and from chair to toilet w/o assist. Spoke with his , who is [place] [facility] now, may get here this afternoon. She states he has power assist chair, so he can get up from that unassisted at baseline, and has grab bars in [place] where he sits and toilets to allow him to be independent. Family History: Unchanged from Admission Social History: Unchanged from Admission Past Medical History: Unchanged from Admission Objective Active Medications: Acetaminophen (Tylenol Adult Liq*) 650 mg PO Q4H PRN PRN Reason: MILD PAIN or TEMP > 100.4 Last Admin: 06/28/19 06:59 Dose: 650 mg Albuterol/Ipratropium (Duoneb (Albuterol 2.5 Mg/Ipratropium 0.5 Mg)) 1 neb INH Q6H PRN PRN Reason: SOB/WHEEZING Aspirin (Aspirin 81 Mg Chew Tab*) 81 mg PO DAILY [facility] Last Admin: 07/02/19 07:53 Dose: 81 mg Dextrose (Dextrose 50% Vial 50 Ml*) 25 ml IV PUSH .FOR FS < 60 - SS PRN PRN Reason: FS < 60 Docusate Sodium (Colace Cap*) 100 mg PO BID [facility] Last Admin: 07/02/19 07:53 Dose: 100 mg Ferrous Sulfate (Ferrous Sulfate Tab*) 325 mg PO DAILY [facility] Last Admin: 07/02/19 07:53 Dose: 325 mg Furosemide (Lasix Tab*) 40 mg PO DAILY [facility] Last Admin: 07/02/19 07:54 Dose: 40 mg Heparin Sodium (Porcine) (Heparin Vial(*)) 5,000 units SUBCUT Q8HR [facility] Last Admin: 07/02/19 05:43 Dose: 5,000 units Insulin Glargine (Lantus(*)) 50 units SUBCUT Q24H [facility] Last Admin: 07/01/19 12:31 Dose: 50 units Insulin Human Lispro (Humalog*) 0 units SUBCUT FS ACHS ICU [facility]; Protocol Last Admin: 07/02/19 09:44 Dose: 2 units Lansoprazole (Lansoprazole Susp* Oralsyr) 30 mg PO DAILY [facility] Last Admin: 07/02/19 07:53 Dose: 30 mg Oxycodone HCl (Oxycontin(*)) 10 mg PO BID [facility] Last Admin: 07/02/19 07:54 Dose: 10 mg Oxycodone HCl (Roxycodone Tab*) 5 mg PO QID PRN PRN Reason: PAIN - MODERATE Last Admin: 07/02/19 10:11 Dose: 5 mg Simvastatin (Zocor(Nf)) 20 mg PO BEDTIME [facility] Last Admin: 07/01/19 21:27 Dose: 20 mg Vital Signs - 8 hr 07/02/19 07/02/19 07/02/19 07:54 08:00 08:15 Temperature 36.7 C Pulse Rate 79 Respiratory 16 16 18 Rate Blood Pressure 147/70 (mmHg) O2 Sat by Pulse 99 Oximetry 07/02/19 07/02/19 09:49 10:11 Temperature Pulse Rate Respiratory 16 16 Rate Blood Pressure (mmHg) O2 Sat by Pulse Oximetry Oxygen Devices in Use Now: Nasal Cannula Appearance: alert, no distress, leaning to RT Ears/Nose/Mouth/Throat: Clear Oropharnyx Neck: No Thyroid Enlargement, Masses Respiratory: Symmetrical Chest Expansion and Respiratory Effort, Clear to Auscultation Cardiovascular: NL Sounds; No Murmurs; No JVD, RRR Abdominal: NL Sounds; No Tenderness; No Distention Neurological: Alert and Oriented x 3 Lines/Tubes/Other Access: Clean, Dry and Intact Peripheral IV Nutrition: Taking PO's Result Diagrams: 07/02/19 09:42 07/02/19 09:42 Additional Lab and Data: Laboratory Tests 07/01/19 07/01/19 07/02/19 16:44 21:06 07:53 Glucose POC Glucose (mg/dL) 158 H 130 H 138 H 07/02/19 09:42 Glucose 158 H POC Glucose (mg/dL) Assess/Plan/Problems-Billing Assessment: 69 year old man with history of CAD, PVD, CKD admitted on 06/21/19 with unresponsiveness and intubated, later found to have sepsis from pneumonia, extubated 06/27 and transferred to the floor. - Patient Problems (1) Acute respiratory failure with hypoxia Current Visit: Yes Status: Acute Priority: High Code(s): J96.01 - ACUTE RESPIRATORY FAILURE WITH HYPOXIA SNOMED Code(s): 21440007 Comment: -Due to community-acquired pneumonia -now resolved and back to his baseline requirement of 2L round the clock -Completed 7 days of Zosyn, cultures negative (2) NSTEMI (non-ST elevated myocardial infarction) Current Visit: Yes Status: Acute Priority: Medium Code(s): I21.4 - NON-ST ELEVATION (NSTEMI) MYOCARDIAL INFARCTION SNOMED Code(s): 90021440 Comment: -Cardiology consult appreciated -avoiding beta-kurtis and Plavix due to ?allergies -continue asa/statin -Should have outpatient stress test/ cath eval once recovered -Follows with Dr Agustin as an outpatient and discussed with pt and has an appt in 1 week (3) Type 2 diabetes mellitus Current Visit: No Status: Chronic Priority: Medium Comment: -Blood sugars in goal range -Continue present dose lantus -multiple diabetic complications (4) (HFpEF) heart failure with preserved ejection fraction Current Visit: Yes Status: Acute Priority: Medium Code(s): I50.30 - UNSPECIFIED DIASTOLIC (CONGESTIVE) HEART FAILURE SNOMED Code(s): 811238811 Comment: -Patient required IV diuresis in ICU when intubated -May be helping resolve pleural effusion -Echo shows EF in 50% range -On oral lasix as advised by cardiology, BMP shows creatinine at baseline (5) DVT prophylaxis Current Visit: No Status: Acute Priority: Medium Code(s): KBM7626 - SNOMED Code(s): 727945741 (6) Physical medicine and rehabilitation procedures Current Visit: Yes Status: Acute Priority: Medium Onset Date: 10/03/15 Code(s): NDC2892 - SNOMED Code(s): 137998522 Comment: -Reviewed PT notes, required moderate assist with transfer this AM. -Patient has refused BASSEM. Status and Disposition: Could go home today if can transport. She will be able to help assess whether he can be independent with current home situation.
[2019-07-02] MEDS: Insulin GLARGINE(*) 1 UNITS UNIT SUBCUT SCH (12:23)
[2019-07-02] MEDS: CMCS: Simvastatin TAB(NF) 20 MG TAB PO SCH (22:15)
[2019-07-03] MEDS: Heparin VIAL(*) 5000 UNITS/ML VIAL (FIVE THOUSAND) SUBCUT SCH (05:37)
[2019-07-03] MEDS: oxyCODONE TAB* 5 MG TAB PO PRN (05:41)
[2019-07-03] MEDS: Aspirin 81 mg CHEW TAB* 81 MG TAB.CHEW PO SCH (09:31)
[2019-07-03] MEDS: Furosemide TAB* 40 MG PO SCH (09:31)
[2019-07-03] MEDS: Docusate CAP* 100 MG PO SCH (09:31)
[2019-07-03] MEDS: Ferrous Sulfate TAB* 325 MG PO SCH (09:31)
[2019-07-03] MEDS: oxyCODONE SR TAB(*) 10 MG TAB.SR PO SCH (09:31)
[2019-07-03] MEDS: Insulin LISPRO* 1 UNITS UNIT SUBCUT SCH ×2 (09:33→12:27)
[2019-07-03 09:46] VITALS: BP 143/70
[2019-07-03] MEDS: Lansoprazole SUSP* ORALSYR 3 MG/ML PO SCH (09:56)
[2019-07-03] MEDS: Insulin GLARGINE(*) 1 UNITS UNIT SUBCUT SCH (12:28)
--- NOTE | 2019-07-04 13:13 | DS ---
CC: Deonte Masters MD DISCHARGE SUMMARY: DATE OF ADMISSION: 06/21/19 DATE OF DISCHARGE: 07/03/19 PRIMARY DIAGNOSIS: Bilateral pneumonia. SECONDARY DIAGNOSES: 1. Exacerbation of heart failure with preserved ejection fraction. 2. Type 2 diabetes. 3. Peripheral neuropathy. 4. Bilateral transmetatarsal amputation. 5. Opioid misuse. 6. Coronary artery disease. 7. Peripheral vascular disease. 8. Rheumatoid arthritis. 9. Anxiety. 10. History of possible lung mass, not investigated during this hospital stay. 11. Acute hypoxic respiratory failure. MEDICATIONS ON DISCHARGE: 1. Budesonide/formoterol 160/4.5 two puffs inhaled twice a day. 2. BuSpar 10 mg p.o. b.i.d. p.r.n. anxiety. 3. Docusate 100 mg p.o. b.i.d. 4. Guaifenesin with dextromethorphan 10 mL p.o. q.4 hours p.r.n. cough. 5. Insulin lispro 6 units subcutaneous q.a.c. 6. Probiotics 1 capsule daily. 7. Levalbuterol nebulizer inhaled 3 times a day as needed. 8. Levalbuterol inhaler 2 puffs inhaled q.i.d. as an alternative to the above p.r.n. wheezing. 9. Montelukast 10 mg p.o. daily. 10. Nitroglycerin 0.4 mg sublingual q.5 minutes x3 p.r.n. chest pain. 11. Omeprazole 20 mg p.o. daily. 12. Oxycodone SR 10 mg p.o. b.i.d. 13. Oxycodone 5 mg p.o. q.i.d. p.r.n. 14. Pregabalin 50 mg p.o. t.i.d. 15. Sertraline 25 mg p.o. daily. 16. Simvastatin 20 mg p.o. q.h.s. 17. Tamsulosin 0.4 mg p.o. daily. 18. Spiriva 1 inhalation daily. 19. Acetaminophen liquid 650 mg q.4 hours p.r.n. fever or mild pain. 20. Aspirin 81 mg p.o. daily. 21. Iron 325 mg p.o. daily. 22. Furosemide 40 mg p.o. q.a.m. 23. Insulin glargine 50 units subcutaneous q.p.m. 24. Mirtazapine 30 mg p.o. q.h.s. CONSULTATIONS: Dr. Espinoza of Cardiology. PROCEDURES: None. COMPLICATIONS: None. HOSPITAL COURSE: A 69-year-old man with multiple comorbidities, was admitted to the hospital with ac dio respiratory failure due to a combination of bilateral pneumonia and CHF. He had some hypercapnia with this respiratory failure, but his pH was 7.39. He was treated empirically with ceftriaxone and azithromycin for pneumonia and was switched over the Zosyn empirically as well. Blood cultures afte r 5 days with no growth. MRSA screen was negative. Urine had no growth as well. Initial white coun t was 11.4 which fell to 9.6 on recheck. The patient was in the intensive care unit and intubated fo r the acute hypoxic respiratory failure with mild hypercarbia for the first week of his hospital stay . He was extubated overnight on 06/25/19 to 06/26/19. He was diuresed 1 to 3 L per day over a perio d of 6 days prior to extubation. Echocardiogram performed on 06/21/19 showed regional wall motion ab normalities including hypokinesis of the basal inferoseptal and basal inferior myocardium and mild hy pokinesis of the mid inferolateral myocardium. There was no significant valvular disease. Ejection fraction was 50% to 55%. The patient was seen in consultation by Dr. Espinoza of Cardiology regarding type 2 myocardial infarction with troponin elevation up to 7.38 and CK-MB elevation up to 11.9. He a dvised looking into the history of products allergy but otherwise medical management was advised. Th e patient has a history of coronary artery disease and should have outpatient cardiology followup. H e also was concerned about lack of beta-blockade because he has an allergy as well. The patient progressed after extubation and was transferred to the medical floor. His oxygen requirem ents decreased down to 2 L continuous which is his home baseline level. His hospital stay was prolon ged due to immobility and weakness. Part of this is due to peripheral neuropathy, chronic pain, and part of this is due to the week in the ICU. On the day of discharge, the patient was able to transfe r from bed to chair and chair to toilet with minimal assist. At home, he has more grab bars and a po wer chair which will allow him to move around in the house. His is comfortable bringing him chuckie e in this state. The patient's diabetes was managed while he is in the hospital with sliding scale insulin and increas ed dose of Lantus insulin. His fingersticks in the last 24 hours were in the 130 to 190 range. OTHER PERTINENT HOSPITAL FINDINGS: Influenza A and B testing was negative. Creatinine vary between 2 .01 on admission to 1.65 on discharge. Lactic acid was initially 1.0. Chest x-rays never showed any definite lobar infiltrate, mainly showed pulmonary edema, but he was treated for 7 days with Zosyn d uring the hospital stay for a possible pneumonia and sepsis. DISPOSITION: Home with a visiting nurse. ACTIVITY: To transfer from bed to chair, stand and pivot, full weightbearing. DIET: Diabetic. STATUS: Inpatient. CONDITION: Stable. TIME SPENT: I spent more than 45 minutes with the patient and family and completed necessary paperwo rk on the day of discharge. [id number]/[facility] #: [id number]
== END 2019-07-03 12:20 | disposition home health service (06) | DRG 207 ==
LOC: ED 08:02 → ICU 11:05 → MED 06-27 13:21
PROVIDERS: ADMIT Internal Medicine Critical Care Medicine; ATTEND Internal Medicine
PROC: 0BH17EZ Insertion of Endotracheal Airway into Trachea, Via Natural or Artificial Opening (ICD-10-PCS; principal; 2019-06-21)
PROC: 5A1955Z Respiratory Ventilation, Greater than 96 Consecutive Hours (ICD-10-PCS; 2019-06-21)
DX: J96.01 Acute respiratory failure with hypoxia (principal); J18.9 Pneumonia, unspecified organism; I21.4 Non-ST elevation (NSTEMI) myocardial infarction; I50.33 Acute on chronic diastolic (congestive) heart failure; I13.0 Hypertensive heart and chronic kidney disease with heart failure and stage 1 through stage 4 chronic kidney disease, or unspecified chronic kidney disease; J96.02 Acute respiratory failure with hypercapnia; J44.0 Chronic obstructive pulmonary disease with (acute) lower respiratory infection; I24.8 Other forms of acute ischemic heart disease; N17.9 Acute kidney failure, unspecified; E78.00 Pure hypercholesterolemia, unspecified; I25.10 Atherosclerotic heart disease of native coronary artery without angina pectoris; E11.51 Type 2 diabetes mellitus with diabetic peripheral angiopathy without gangrene; K21.9 Gastro-esophageal reflux disease without esophagitis; N40.0 Benign prostatic hyperplasia without lower urinary tract symptoms; E11.22 Type 2 diabetes mellitus with diabetic chronic kidney disease; N18.9 Chronic kidney disease, unspecified; M19.90 Unspecified osteoarthritis, unspecified site; E78.5 Hyperlipidemia, unspecified; D63.1 Anemia in chronic kidney disease; G89.29 Other chronic pain; E66.9 Obesity, unspecified; M06.9 Rheumatoid arthritis, unspecified; E11.65 Type 2 diabetes mellitus with hyperglycemia; F41.9 Anxiety disorder, unspecified; E11.42 Type 2 diabetes mellitus with diabetic polyneuropathy; F32.9 Major depressive disorder, single episode, unspecified; Z98.42 Cataract extraction status, left eye; Z98.41 Cataract extraction status, right eye; Z88.8 Allergy status to other drugs, medicaments and biological substances; Z95.0 Presence of cardiac pacemaker; Z95.1 Presence of aortocoronary bypass graft; Z88.2 Allergy status to sulfonamides; Z86.14 Personal history of Methicillin resistant Staphylococcus aureus infection; Z87.891 Personal history of nicotine dependence; Z89.432 Acquired absence of left foot; Z68.32 Body mass index [BMI] 32.0-32.9, adult; Z89.431 Acquired absence of right foot; Z85.118 Personal history of other malignant neoplasm of bronchus and lung; Z79.899 Other long term (current) drug therapy; Z79.4 Long term (current) use of insulin; Z79.82 Long term (current) use of aspirin
CPT/HCPCS: 36415; 70450; 71045; 80048; 80053; 80320; 81003; 81015; 82140; 82330; 82553; 82565; 82803; 82947; 83605; 83735; 83880; 84100; 84484; 84520; 85025; 85027; 85610; 85730; 86140; 87040; 87086; 87641; 93005; 93306; 94002; 94003; 94640; 96374; 99285; A9270-GY; C8929; G0480; G8978-GP-CK; G8978-GP-CM; G8979-GP-CJ; J0330; J0456; J0610; J0696; J1644; J1815; J1940; J2250; J2310; J2543; J2704; J3010; J3475; J3480

== ENCOUNTER 2019-10-15 10:18 | Emergency (ER) | payer MEDICARE, OTHER ==
--- NOTE | 2019-10-15 10:31 | ED ---
Lower Extremity - HPI Summary HPI Summary: 69 year old M presenting to [facility] via EMS with a chief complaint of left leg pain, redness, and warmth secondary to a possible infection. The patient rates the pain 7/10 in severity. Symptoms aggravated by nothing. Symptoms alleviated by nothing. Patient reports a recent fall secondary to tripping. He is cared for by his . Medication list reviewed. Allergy list reviewed. - History of Current Complaint Stated Complaint: FALL PER EMS Hx Obtained From: Patient Severity Currently: Moderate Pain Intensity: 7 Pain Scale Used: 0-10 Numeric Timing: Constant Location: Is Discrete @ - Left leg Aggravating Factor(s): Nothing Alleviating Factor(s): Nothing - Allergies/Home Medications Allergies/Adverse Reactions: Allergies Allergy/AdvReac Type Severity Reaction Status Date / Time minocycline Allergy Severe Difficulty Verified 09/27/19 11:25 Breathing lisinopril Allergy Unknown Verified 09/27/19 11:25 Reaction Details metoprolol Allergy Unknown Verified 09/27/19 11:25 Reaction Details clopidogrel AdvReac Severe Made Verified 09/27/19 11:25 opiate effect more intense Sulfa (Sulfonamide AdvReac Rash Verified 09/27/19 11:25 Antibiotics) Home Medications: Home Medications Aspirin EC TAB* [Ecotrin EC Low Dose 81 MG*] 81 mg PO DAILY #0 tab.ec 10/17/15 [ Rx Confirmed 10/15/19] Mirtazapine TAB* [Remeron TAB*] 30 mg PO BEDTIME tab 10/17/15 [Rx Confirmed ] Tamsulosin CAP* [Flomax CAP*] 0.4 mg PO DAILY 03/26/16 [History Confirmed ] Tiotropium CAPSULE (NF) [Spiriva CAPSULE (NF)] 1 cap.inh INH DAILY 03/26/16 [ History Confirmed 10/15/19] Omeprazole CAP (NF) [Prilosec CAP* 20 MG] 20 mg PO DAILY 03/29/16 [History Confirmed 10/15/19] busPIRone TAB* [Buspar TAB*] 10 mg PO BID PRN 03/29/16 [History Confirmed ] Montelukast Sodium TAB* [Singulair 10 MG TAB*] 10 mg PO DAILY 04/09/16 [History Confirmed 10/15/19] Budesonide/Formote 160/4.5(NF) [Symbicort 160/4.5 (NF)] 2 puff INH BID 11/02/17 [History Confirmed 10/15/19] Insulin LISPRO* [HumaLOG 100 units/ml 3 ml VIAL *] 6 units SUBCUT TID WITH MEALS 11/02/17 [History Confirmed 10/15/19] Pregabalin 50 mg CAP (*) [Lyrica 50 mg CAP (*)] 50 mg PO TID 11/02/17 [History Confirmed 10/15/19] Sertraline* [Zoloft*] 25 mg PO DAILY 11/02/17 [History Confirmed 10/15/19] Simvastatin TAB(NF) [Zocor 20 MG (NF)] 20 mg PO DAILY 11/02/17 [History Confirmed 10/15/19] Docusate CAP* [Colace Cap*] 100 mg PO BID PRN 06/21/19 [History Confirmed ] Levalbuterol HFA INHALER* [Xopenex Hfa Inhaler*] 2 puff INH QID PRN 06/21/19 [ History Confirmed 10/15/19] Nitroglycerin TAB 0.4 MG* 0.4 mg SL Q5M PRN MDD 3 tabs 06/21/19 [History Confirmed 10/15/19] l Gasseri/B Bifidum/B Longum [[facility] Capsule] 1 cap PO DAILY [History Confirmed 10/15/19] Acetaminophen ADULT LIQ* [Tylenol ADULT LIQ*] 650 mg PO Q4H PRN udc 07/03/19 [ Rx Confirmed 10/15/19] Tramadol HCl [Ultram] 50 mg PO TID PRN MDD 3 08/15/19 [History Confirmed ] bisoproloL fumarate [Bisoprolol Fumarate] 5 mg PO DAILY 08/15/19 [History Confirmed 10/15/19] DOXYcycline CAP(*) [DOXYcycline 100MG CAP(*)] 100 mg PO BID 08/29/19 [History Confirmed 10/15/19] Pioglitazone TAB* [Actos TAB*] 15 mg PO DAILY 08/29/19 [History Confirmed ] celeCOXIB CAP* [CeleBREX CAP*] 200 mg PO DAILY 08/29/19 [History Confirmed 10/14] Budesonide NEB* [Pulmicort NEB*] 0.5 mg INH BID PRN 10/15/19 [History Confirmed 10/15/19] Cephalexin CAP* [Keflex CAP*] 500 mg PO QID #40 cap 10/15/19 [Rx] Furosemide TAB* [Lasix TAB*] 80 mg PO DAILY 10/15/19 [History Confirmed 10/15/19 ] Insulin Glargine,Hum.rec.anlog [Lantus Solostar 100 units/ml 3 ml x 5 PENS] 33 units SUBCUT QPM 10/15/19 [History Confirmed 10/15/19] Levalbuterol 1.25MG/0.5ML NEB* [Xopenex 1.25 MG/0.5 ML NEB.MARELY*] 1.25 mg INH TID PRN 10/15/19 [History Confirmed 10/15/19] Multivitamins/Minerals TAB* [Theragran/minerals TAB*] 1 tab PO DAILY 10/15/19 [ History Confirmed 10/15/19] guaiFENesin ER TAB [Mucinex*] 600 mg PO BID PRN MDD 2 tabs 10/15/19 [History Confirmed 10/15/19] PMH/Surg Hx/FS Hx/Imm Hx Endocrine/Hematology History: Reports: Hx Diabetes, Hx Anemia - HX OF Denies: Hx Thyroid Disease Cardiovascular History: Reports: Hx Coronary Artery Disease, Hx Hypercholesterolemia, Hx Hypertension, Hx Pacemaker/ICD - 8/, Hx Peripheral Vascular Disease, Other Cardiovascular Problems/Disorders - BYPASS SURGERY Denies: Hx Aneurysm, Hx Angina, Hx Auto Implanted Cardiovert Defib, Hx Cardiac Arrest, Hx Cardiomegaly, Hx Congestive Heart Failure, Hx Rheumatic Fever , Hx Valvular Heart Disease Respiratory History: Reports: Hx Asthma, Hx Chronic Bronchitis, Hx Chronic Obstructive Pulmonary Disease (COPD), Hx Lung Cancer - RLL, Hx Pneumonia, Other Respiratory Problems/Disorders - COPD Denies: Hx Pulmonary Edema, Hx Pulmonary Embolism, Hx Seasonal Allergies, Hx Sleep Apnea GI History: Reports: Hx Gastroesophageal Reflux Disease Denies: Hx Cirrhosis, Hx Crohn's Disease, Hx Irritable Bowel, Hx Jaundice, Hx Ulcer History: Reports: Hx Acute Renal Failure, Hx Benign Prostatic Hyperplasia, Other Problems/Disorders - CKD Denies: Hx Dialysis, Hx Renal Disease Musculoskeletal History: Reports: Hx Arthritis - RA AND OSTEOARTHRITIS, Hx Rheumatoid Arthritis, Hx Back Problems - siatica, Other Musculoskeletal History - HX SCIATICA Sensory History: Reports: Hx Cataracts, Hx Contacts or Glasses - not with patient, Other Sensory Impairments - Neuropathy Denies: Hx Eye Injury, Hx Glaucoma, Hx Hearing Aid, Hx Hearing Problem Opthamlomology History: Reports: Hx Cataracts, Hx Contacts or Glasses - not with patient, Other Sensory Impairments - Neuropathy Denies: Hx Eye Injury, Hx Glaucoma Neurological History: Denies: Hx Dementia, Hx Developmental Delay, Hx Headaches, Hx Migraine, Hx Nerve Disease, Hx Seizures, Hx Spinal Cord Injury, Hx Transient Ischemic Attacks (TIA), Other Neuro Impairments/Disorders Psychiatric History: Reports: Hx Depression Denies: Hx Panic Disorder - Cancer History Cancer Type, Location and Year: R Lung [address] Lindsay - dx and then not present Hx Chemotherapy: No - Surgical History Surgery Procedure, Year, and Place: CABG -5 1994, [facility]. Hernia Repair, [facility]. Right foot 4th toe joint replacements,. MULTIPLE [place] [facility] [place]. 2010 BILAT CATARACT, [facility] [place]. 05/2015 Partial Amputation of Left Foot at [facility] [place], by Dr. Arce. 06/2015 LEFT STUMP REVISION OF LEFT FOOT AMPUTATION, [facility] [place] Hx Anesthesia Reactions: No - Immunization History Date of Tetanus Vaccine: unsure Date of Influenza Vaccine: 2011 Infectious Disease History: Reports: Hx of Known/Suspected MRSA Denies: Hx Clostridium Difficile, Hx Hepatitis, Hx Human Immunodeficiency Virus (HIV), Hx Shingles, Hx Tuberculosis, Hx Known/Suspected VRE, Hx Known/ Suspected VRSA, History Other Infectious Disease - Family History Known Family History: Negative: Hypertension - Social History Alcohol Use: None Hx Substance Use: No Substance Use Type: Reports: None Substance Use Comment - Amount & Last Used: Prescribed - oxycodone Hx Tobacco Use: Yes - 1995 Smoking Status (MU): Former Smoker Type: Cigarettes Amount Used/How Often: 2 PPD Length of Time of Smoking/Using Tobacco: 20 YEARS Have You Smoked in the Last Year: No Review of Systems Positive: Other - Left leg pain; left leg warmth Positive: Other - Left leg redness All Other Systems Reviewed And Are Negative: Yes Physical Exam - Summary Physical Exam Summary: Appearance: The patient is well-nourished in no acute distress and in no acute pain. Skin: The skin is warm and dry, and skin color reflects adequate perfusion. HEENT: The head is normocephalic and atraumatic. The pupils are equal and reactive. The conjunctivae are clear and without drainage. Nares are patent and without drainage. Mouth reveals moist mucous membranes, and the throat is without erythema and exudate. The external ears are intact. The ear canals are patent and without drainage. The tympanic membranes are intact. Neck: The neck is supple with full range of motion and non-tender. There are no carotid bruits. There is no neck vein distension. Respiratory: Chest is non-tender. Lungs are clear to auscultation and breath sounds are symmetrical and equal. Cardiovascular: Heart is regular rate and rhythm. There is no murmur or rub auscultated. There is no peripheral edema and pulses are symmetrical and equal. Abdomen: The abdomen is soft and non-tender. There are normal bowel sounds heard in all four quadrants and there is no organomegaly palpated. Musculoskeletal: There is no back tenderness noted. Small open area on his amputation stump on his left foot. Left ankle is warm and erythematous, there are some small areas of erythema proximal to that. There is good capillary refill. There is no peripheral edema or calf tenderness elicited. Neurological: Patient is alert and oriented to person, place and time. The patient has symmetrical motor strength in all four extremities. Cranial nerves are grossly intact. Deep tendon reflexes are symmetrical and equal in all four extremities. Psychiatric: The patient has an appropriate affect and does not exhibit any anxiety or depression. Triage Information Reviewed: Yes Vital Signs Reviewed: Yes Procedures - Sedation Patient Received Moderate/Deep Sedation with Procedure: No Diagnostics - Laboratory Result Diagrams: 10/15/19 10:51 10/15/19 10:51 Lab Statement: Any lab studies that have been ordered have been reviewed, and results considered in the medical decision making process. Lower Extremity Course/Dx - Course Course Of Treatment: Mr. Knox has a history of partial amputation of both his feet secondary osteomyelitis secondary to diabetic foot ulcers. He is taking care of by his who noticed a small lesion on his left stump several days ago. She's been keeping it clean but now he has developed erythema going up his leg. His leg is hurting him. He was nontoxic in appearance stable vitals. He had a clear cellulitis in his left lower extremity. He was given IV antibiotics here starting with Keflex. He has a clear likely source and I don' t think this represents an osteomyelitis at this time. His creatinine was up a little bit although it is always somewhat elevated. I got a bladder scan for that reason after he urinated and found a liter in his bladder. We placed a [place] in case his urinary retention is contributing to his chronic renal failure. He certainly may fail Keflex and need to come back and was warned. - Diagnoses Provider Diagnoses: Urinary retention, Cellulitis - Physician Notifications Discussed Care Of Patient With: Harrison Alexis Time Discussed With Above Provider: 13:55 Instructed by Provider To: Other - Spoke with Dr. Alexis regarding the patient. Discharge ED - Sign-Out/Discharge Documenting (check all that apply): Patient Departure - Discharge Plan Condition: Stable Disposition: HOME Prescriptions: Cephalexin CAP* [Keflex CAP*] 500 mg PO QID #40 cap Patient Education Materials: Urinary Retention in Men (ED), Cellulitis (ED) Referrals: Deonte Masters MD [Primary Care Provider] - 3 Days Additional Instructions: Follow-up with your PCP in 2-3 days. Return to the emergency department for changing or worsening symptoms. - Billing Disposition and Condition Condition: STABLE Disposition: Home - Attestation Statements Document Initiated by Scribe: Yes Documenting Scribe: Georgina Guzman Provider For Whom Ashley is Documenting (Include Credential): Emigdio Madrigal MD Scribe Attestation: IGeorgina, scribed for Emigdio Madrigal MD on 10/15/19 at 2013. Scribe Documentation Reviewed: Yes Provider Attestation: The documentation as recorded by the Georgina kelly accurately reflects the service I personally performed and the decisions made by me, Emigdio Madrigal MD Status of Scribe Document: Viewed
[2019-10-15] MEDS ORDERED: ceFAZolin 1 GM ADVAN(*) 1 GM in NS 0.9% 50 ML* 50 ML IVPB ONE (10:35)
--- OUTSIDE RECORDS SUMMARY | 2019-10-15 10:51 | XMS REPORT ---
[...] Result Comments Laboratory Studies 2019-03-08 12:13:00 Identifier [id number] Result Time Unknown 2019-03-08 12:13:00 Test Item Value Reference Range Comments Unknown (test code = 2339-0) 312 mg/dL Unknown 70-100 F Ordering Physician UnknownLaboratory Ihehybl0285-80-67 06:25:00Identifier 62211- 6 Result Time 2019-03-08 06:25:00Unknown Test Item Value Reference Range Comments Unknown (test code = 2951-2) 136 mmol/L Unknown 135-145 F Ordering Physician UnknownLaboratory Hkmxmmj0171-12-12 06:25:00Identifier 15186- 6 Result Time 2019-03-08 06:25:00Unknown Test Item Value Reference Range Comments Unknown (test code = 2823-3) 3.7 mmol/L Unknown 3.5-5.0 F Ordering Physician UnknownLaboratory Yjadkzl1393-81-44 06:25:00Identifier 62833- 6 Result Time 2019-03-08 06:25:00Unknown Test Item Value Reference Range Comments Unknown (test code = 2345-7) 175 mg/dL Unknown 70-100 F Ordering Physician UnknownLaboratory Amifotp1327-70-22 06:25:00Identifier 87723- 6 Result Time 2019-03-08 06:25:00Unknown Test Item Value Reference Range Comments Unknown (test code = 57947-2) 49.4 Unknown Unknown F Ordering Physician UnknownLaboratory Bmyiqhc5557-23-72 06:25:00Identifier 63514- 6 Result Time 2019-03-08 06:25:00Unknown Test Item Value Reference Range Comments Unknown (test code = NullTestCode) 59.8 Unknown Unknown F Ordering Physician UnknownLaboratory Cjgrykp0729-69-87 06:25:00Identifier 78554- 6 Result Time 2019-03-08 06:25:00Unknown Test Item Value Reference Range Comments Unknown (test code = 2160-0) 1.42 mg/dL Unknown 0.67-1.17 F Ordering Physician UnknownLaboratory Sloxext5703-48-67 06:25:00Identifier 29306- 6 Result Time 2019-03-08 06:25:00Unknown Test Item Value Reference Range Comments Unknown (test code = 2075-0) 97 mmol/L Unknown 101-111 F Ordering Physician UnknownLaboratory Lppgkrn4556-57-40 06:25:00Identifier 28347- 6 Result Time 2019-03-08 06:25:00Unknown Test Item Value Reference Range Comments Unknown (test code = 2028-9) 33 mmol/L Unknown 22-32 F Ordering Physician UnknownLaboratory Jcrbxsn9072-53-91 06:25:00Identifier 80450- 6 Result Time 2019-03-08 06:25:00Unknown Test Item Value Reference Range Comments Unknown (test code = 42163-1) 9.6 mg/dL Unknown 8.6-10.3 F Ordering Physician UnknownLaboratory Cdoifbu7713-93-39 06:25:00Identifier 98451- 6 Result Time 2019-03-08 06:25:00Unknown Test Item Value Reference Range Comments Unknown (test code = 3094-0) 28 mg/dL Unknown 6-24 F Ordering Physician UnknownLaboratory Clqbebm5768-71-02 06:25:00Identifier 20958- 6 Result Time 2019-03-08 06:25:00Unknown Test Item Value Reference Range Comments Unknown (test code = 3097-3) 19.7 Unknown 8-20 F Ordering Physician UnknownLaboratory Ewpqrgx0977-54-05 06:25:00Identifier 06876- 6 Result Time 2019-03-08 06:25:00Unknown Test Item Value Reference Range Comments Unknown (test code = 50300-9) 6 mmol/L Unknown 2-11 F Ordering Physician UnknownLaboratory Msrzeku8209-47-66 06:25:00Identifier 74037- 6 Result Time 2019-03-08 06:25:00Unknown Test Item Value Reference Range Comments Unknown (test code = 45878-5) 7.7 10^3/uL Unknown 3.5-10.8 F Ordering Physician UnknownLaboratory Boxyvmy3008-32-42 06:25:00Identifier 24448- 6 Result Time 2019-03-08 06:25:00Unknown Test Item Value Reference Range Comments Unknown (test code = 788-0) 15 % Unknown 10-15 F Ordering Physician UnknownLaboratory Qqqgpnx8656-74-28 06:25:00Identifier 73123- 6 Result Time 2019-03-08 06:25:00Unknown Test Item Value Reference Range Comments Unknown (test code = 789-8) 3.94 10^6 /uL Unknown 4.18-5.48 F Ordering Physician UnknownLaboratory Dtqekkf9101-12-35 06:25:00Identifier 23248- 6 Result Time 2019-03-08 06:25:00Unknown Test Item Value Reference Range Comments Unknown (test code = 777-3) 164 10^3/uL Unknown 150-450 F Ordering Physician UnknownLaboratory Etfeora0399-91-11 06:25:00Identifier 96362- 6 Result Time 2019-03-08 06:25:00Unknown Test Item Value Reference Range Comments Unknown (test code = 73409-7) 7.8 fL Unknown 7.4-10.4 F Ordering Physician UnknownLaboratory Eczvfjl7049-22-66 06:25:00Identifier 93522- 6 Result Time 2019-03-08 06:25:00Unknown Test Item Value Reference Range Comments Unknown (test code = 787-2) 81 fL Unknown 80-94 F Ordering Physician UnknownLaboratory Glrknow4286-28-72 06:25:00Identifier 91659- 6 Result Time 2019-03-08 06:25:00Unknown Test Item Value Reference Range Comments Unknown (test code = 786-4) 34 g/dL Unknown 31-36 F Ordering Physician UnknownLaboratory Xvyzcra0824-85-18 06:25:00Identifier 80562- 6 Result Time 2019-03-08 06:25:00Unknown Test Item Value Reference Range Comments Unknown (test code = 785-6) 27 pg Unknown 27-31 F Ordering Physician UnknownLaboratory Ijbirhv0336-42-83 06:25:00Identifier 50463- 6 Result Time 2019-03-08 06:25:00Unknown Test Item Value Reference Range Comments Unknown (test code = 718-7) 10.8 g/dL Unknown 14.0-18.0 F Ordering Physician UnknownLaboratory Ezukfoc3410-57-70 06:25:00Identifier 17396- 6 Result Time 2019-03-08 06:25:00Unknown Test Item Value Reference Range Comments Unknown (test code = 4544-3) 32 % Unknown 42-52 F Ordering Physician UnknownLaboratory Wuuljdd2281-28-20 06:45:00Identifier 14056- 6 Result Time 2019-03-06 06:45:00Unknown Test Item Value Reference Range Comments Unknown (test code = 2777-1) 3.3 mg/dL Unknown 2.5-5.0 F Ordering Physician UnknownLaboratory Bemzikj9125-89-55 06:45:00Identifier 02985- 6 Result Time 2019-03-06 06:45:00Unknown Test Item Value Reference Range Comments Unknown (test code = 99246-4) 2.1 mg/dL Unknown 1.9-2.7 F Ordering Physician UnknownLaboratory Iyuvyjl7968-13-08 13:59:00Identifier 43884- 6 Result Time 2019-03-04 13:59:00Unknown Test Item Value Reference Range Comments Unknown (test code = NullTestCode) Unknown Unknown F Ordering Physician UnknownLaboratory Msfunkb7897-91-35 13:59:00Identifier 76590- 6 Result Time 2019-03-04 13:59:00Unknown Test Item Value Reference Range Comments Unknown (test code = 3034-6) 203 mg/dL Unknown 203-362 F Ordering Physician UnknownLaboratory Bsoyyvx5505-68-91 13:59:00Identifier 68377- 6 Result Time 2019-03-04 13:59:00Unknown Test Item Value Reference Range Comments Unknown (test code = 2500-7) 284 mcg/dL Unknown 250-450 F Ordering Physician UnknownLaboratory Aptnfgn6192-15-43 13:59:00Identifier 11385- 6 Result Time 2019-03-04 13:59:00Unknown Test Item Value Reference Range Comments Unknown (test code = NullTestCode) 13 % Unknown 15-55 F Ordering Physician UnknownLaboratory Kmsulnc2786-80-71 13:59:00Identifier 24034- 6 Result Time 2019-03-04 13:59:00Unknown Test Item Value Reference Range Comments Unknown (test code = 2498-4) 36 ug/dL Unknown 50-212 F Ordering Physician UnknownLaboratory Kziwanr4476-16-15 17:35:00Identifier 29590- 6 Result Time 2019-03-01 17:35:00Unknown Test Item Value Reference Range Comments Unknown (test code = 2132-9) 866 pg/mL Unknown 180-914 F Ordering Physician UnknownLaboratory Kntywam0003-77-62 17:35:00Identifier 82155- 6 Result Time 2019-03-01 17:35:00Unknown Test Item Value Reference Range Comments Unknown (test code = 3053-6) 51 ng/dL Unknown 87-178 F Ordering Physician UnknownLaboratory Lnrbwxt7202-70-66 17:35:00Identifier 98437- 6 Result Time 2019-03-01 17:35:00Unknown Test Item Value Reference Range Comments Unknown (test code = 3051-0) 3.10 pg/mL Unknown 2.5-3.9 F Ordering Physician UnknownLaboratory Cagpoxv4034-19-10 17:35:00Identifier 06241- 6 Result Time 2019-03-01 17:35:00Unknown Test Item Value Reference Range Comments Unknown (test code = 3024-7) 0.86 ng/dL Unknown 0.61-1.12 F Ordering Physician UnknownLaboratory Jybbtrq2544-43-68 17:35:00Identifier 83118- 6 Result Time 2019-03-01 17:35:00Unknown Test Item Value Reference Range Comments Unknown (test code = 2157-6) 52 U/L Unknown 10-223 F Ordering Physician UnknownLaboratory Cyihmhk4828-08-55 17:35:00Identifier 06799- 6 Result Time 2019-03-01 17:35:00Unknown Test Item Value Reference Range Comments Unknown (test code = 06301-9) 41 mcmol/L Unknown 16-53 F Ordering Physician UnknownLaboratory Wzgjzox2820-66-00 16:21:00Identifier 70320- 6 Result Time 2019-03-01 16:21:00Unknown Test Item Value Reference Range Comments Unknown (test code = 19611-6) 0.10 ng/mL Unknown Unknown F Ordering Physician UnknownLaboratory Yeuubvc0860-19-79 05:20:00Identifier 12196- 6 Result Time 2019-03-01 05:20:00Unknown Test Item Value Reference Range Comments Unknown (test code = 88438-6) 0.0 Unknown Unknown F Ordering Physician UnknownLaboratory Pcptjfc4548-28-89 05:20:00Identifier 23877- 6 Result Time 2019-03-01 05:20:00Unknown Test Item Value Reference Range Comments Unknown (test code = 771-6) 0.0 10^3/ul Unknown Unknown F Ordering Physician UnknownLaboratory Rdtkbdn7261-19-07 05:20:00Identifier 34912- 6 Result Time 2019-03-01 05:20:00Unknown Test Item Value Reference Range Comments Unknown (test code = 770-8) 92.0 % Unknown Unknown F Ordering Physician UnknownLaboratory Dkpfnne8530-65-57 05:20:00Identifier 64789- 6 Result Time 2019-03-01 05:20:00Unknown Test Item Value Reference Range Comments Unknown (test code = 5905-5) 1.8 % Unknown Unknown F Ordering Physician UnknownLaboratory Ytgphfw2146-47-75 05:20:00Identifier 42408- 6 Result Time 2019-03-01 05:20:00Unknown Test Item Value Reference Range Comments Unknown (test code = 736-9) 6.0 % Unknown Unknown F Ordering Physician UnknownLaboratory Gegaqjy1036-17-36 05:20:00Identifier 67777- 6 Result Time 2019-03-01 05:20:00Unknown Test Item Value Reference Range Comments Unknown (test code = 713-8) 0.0 % Unknown Unknown F Ordering Physician UnknownLaboratory Jffbpra5326-01-81 05:20:00Identifier 64860- 6 Result Time 2019-03-01 05:20:00Unknown Test Item Value Reference Range Comments Unknown (test code = 706-2) 0.2 % Unknown Unknown F Ordering Physician UnknownLaboratory Kehlxpq2518-66-76 05:20:00Identifier 61152- 6 Result Time 2019-03-01 05:20:00Unknown Test Item Value Reference Range Comments Unknown (test code = CLD7765) 7.0 10^3/ul Unknown 1.5-7.7 F Ordering Physician UnknownLaboratory Olginsp4242-31-22 05:20:00Identifier 17133- 6 Result Time 2019-03-01 05:20:00Unknown Test Item Value Reference Range Comments Unknown (test code = 742-7) 0.1 10^3/ul Unknown 0-0.8 F Ordering Physician UnknownLaboratory Jjmmpxc5072-99-51 05:20:00Identifier 32141- 6 Result Time 2019-03-01 05:20:00Unknown Test Item Value Reference Range Comments Unknown (test code = 731-0) 0.5 10^3/ul Unknown 1.0-4.8 F Ordering Physician UnknownLaboratory Lkyiwdm4144-43-41 05:20:00Identifier 45835- 6 Result Time 2019-03-01 05:20:00Unknown Test Item Value Reference Range Comments Unknown (test code = 711-2) 0.0 10^3/ul Unknown 0-0.6 F Ordering Physician UnknownLaboratory Zvosbfq7418-26-19 05:20:00Identifier 06154- 6 Result Time 2019-03-01 05:20:00Unknown Test Item Value Reference Range Comments Unknown (test code = 704-7) 0.0 10^3/ul Unknown 0-0.2 F Ordering Physician UnknownLaboratory Qcnwttx9616-45-76 01:05:00Identifier 84726- 6 Result Time 2019-03-01 01:05:00Unknown Test Item Value Reference Range Comments Unknown (test code = 2744-1) 7.37 Unknown 7.35-7.45 F Ordering Physician UnknownLaboratory Sihutcj9790-61-56 01:05:00Identifier 35464- 6 Result Time 2019-03-01 01:05:00Unknown Test Item Value Reference Range Comments Unknown (test code = 92526-4) 211 mmHg Unknown 80-100 F Ordering Physician UnknownLaboratory Cmllyxs9795-29-31 01:05:00Identifier 17021- 6 Result Time 2019-03-01 01:05:00Unknown Test Item Value Reference Range Comments Unknown (test code = NullTestCode) 51 mmHg Unknown 35-45 F Ordering Physician UnknownLaboratory Oiqclxj5011-72-68 01:05:00Identifier 75960- 6 Result Time 2019-03-01 01:05:00Unknown Test Item Value Reference Range Comments Unknown (test code = 2708-6) 99.9 % Unknown 94.0-98.0 F Ordering Physician UnknownLaboratory Jgdvunf3589-10-92 01:05:00Identifier 17064- 6 Result Time 2019-03-01 01:05:00Unknown Test Item Value Reference Range Comments Unknown (test code = 1960-4) 27.4 mmol/L Unknown 19-31 F Ordering Physician UnknownLaboratory Kexgdlc4078-26-09 01:05:00Identifier 32527- 6 Result Time 2019-03-01 01:05:00Unknown Test Item Value Reference Range Comments Unknown (test code = 1925-7) 3.1 mmol/L Unknown -2.0-2.0 F Ordering Physician UnknownLaboratory Mtlfive7707-88-28 01:05:00Identifier 89369- 6 Result Time 2019-03-01 01:05:00Unknown Test Item Value Reference Range Comments Unknown (test code = NullTestCode) 80 Unknown Unknown F Ordering Physician UnknownLaboratory Nzakdbg8690-24-29 01:05:00Identifier 77583- 6 Result Time 2019-03-01 01:05:00Unknown Test Item Value Reference Range Comments Unknown (test code = NullTestCode) 500 Unknown Unknown F Ordering Physician UnknownLaboratory Vtpvzns9436-37-45 01:05:00Identifier 51744- 6 Result Time 2019-03-01 01:05:00Unknown Test Item Value Reference Range Comments Unknown (test code = NullTestCode) 15 Unknown Unknown F Ordering Physician UnknownLaboratory Yzvvfhj1762-56-36 01:05:00Identifier 86057- 6 Result Time 2019-03-01 01:05:00Unknown Test Item Value Reference Range Comments Unknown (test code = NullTestCode) 5 Unknown Unknown F Ordering Physician UnknownLaboratory Jnlpktq2682-21-50 20:56:00Identifier 33648- 6 Result Time 2019-02-28 20:56:00Unknown Test Item Value Reference Range Comments Unknown (test code = 3016-3) 1.25 mcIU/mL Unknown 0.34-5.60 F Ordering Physician UnknownLaboratory Webvcjo9988-98-94 20:56:00Identifier 22251- 6 Result Time 2019-02-28 20:56:00Unknown Test Item Value Reference Range Comments Unknown (test code = 2885-2) 7.0 g/dL Unknown 6.4-8.9 F Ordering Physician UnknownLaboratory Ndtybef5909-99-34 20:56:00Identifier 52883- 6 Result Time 2019-02-28 20:56:00Unknown Test Item Value Reference Range Comments Unknown (test code = 1975-2) 0.50 mg/dL Unknown 0.2-1.0 F Ordering Physician UnknownLaboratory Jveygae9086-97-44 20:56:00Identifier 62574- 6 Result Time 2019-02-28 20:56:00Unknown Test Item Value Reference Range Comments Unknown (test code = NullTestCode) 3.4 g/dL Unknown 2-4 F Ordering Physician UnknownLaboratory Vgtflfm3160-15-56 20:56:00Identifier 13375- 6 Result Time 2019-02-28 20:56:00Unknown Test Item Value Reference Range Comments Unknown (test code = 1988-5) 64.61 mg/L Unknown 0-8.00 F Ordering Physician UnknownLaboratory Koqddby8650-55-58 20:56:00Identifier 63037- 6 Result Time 2019-02-28 20:56:00Unknown Test Item Value Reference Range Comments Unknown (test code = 1920-8) 16 U/L Unknown 13-39 F Ordering Physician UnknownLaboratory Tufmxpq1645-90-37 20:56:00Identifier 74308- 6 Result Time 2019-02-28 20:56:00Unknown Test Item Value Reference Range Comments Unknown (test code = 6768-6) 60 U/L Unknown 34-104 F Ordering Physician UnknownLaboratory Bpscrbm0908-68-81 20:56:00Identifier 35889- 6 Result Time 2019-02-28 20:56:00Unknown Test Item Value Reference Range Comments Unknown (test code = 1759-0) 1.1 Unknown 1-3 F Ordering Physician UnknownLaboratory Ydgvdzt4541-55-77 20:56:00Identifier 89735- 6 Result Time 2019-02-28 20:56:00Unknown Test Item Value Reference Range Comments Unknown (test code = 10185-2) 3.6 g/dL Unknown 3.2-5.2 F Ordering Physician UnknownLaboratory Shhbxqo4285-94-36 20:56:00Identifier 50846- 6 Result Time 2019-02-28 20:56:00Unknown Test Item Value Reference Range Comments Unknown (test code = 1742-6) 11 U/L Unknown 7-52 F Ordering Physician UnknownLaboratory Oijcvnj9801-08-41 20:56:00Identifier 43556- 6 Result Time 2019-02-28 20:56:00Unknown Test Item Value Reference Range Comments Unknown (test code = 29271-0) 224 pg/mL Unknown Unknown F Ordering Physician UnknownLaboratory Hvncntu3539-13-20 20:56:00Identifier 57476- 6 Result Time 2019-02-28 20:56:00Unknown Test Item Value Reference Range Comments Unknown (test code = 2524-7) 1.4 mmol/L Unknown 0.5-2.0 F Ordering Physician UnknownLaboratory Uojxybw3582-75-01 20:56:00Identifier 11710- 6 Result Time 2019-02-28 20:56:00Unknown Test Item Value Reference Range Comments Unknown (test code = 53520-5) 1.12 Unknown 0.82-1.09 F Ordering Physician UnknownLaboratory Obkrblz7168-62-64 20:56:00Identifier 41328- 6 Result Time 2019-02-28 20:56:00Unknown Test Item Value Reference Range Comments Unknown (test code = 98325-2) 36.2 seconds Unknown 26.0-38.0 F Ordering Physician UnknownLaboratory Kkmwzvj7745-64-12 20:49:00Identifier 11404- 6 Result Time 2019-02-28 20:49:00Unknown Test Item Value Reference Range Comments Unknown (test code = NullTestCode) 6.0 Unknown 5-9 F Ordering Physician UnknownLaboratory Nbcsusj5571-71-61 20:49:00Identifier 41847- 6 Result Time 2019-02-28 20:49:00Unknown Test Item Value Reference Range Comments Unknown (test code = 59517-6) 1.008 Unknown 1.010-1.030 F Ordering Physician UnknownLaboratory Gvrarga6039-26-03 17:41:00Identifier 16585- 6 Result Time 2019-02-28 17:41:00Unknown Test Item Value Reference Range Comments Unknown (test code = 2746-6) 7.38 Unknown 7.32-7.43 F Ordering Physician UnknownLaboratory Rcbkrvz9169-47-42 17:41:00Identifier 16792- 6 Result Time 2019-02-28 17:41:00Unknown Test Item Value Reference Range Comments Unknown (test code = 2705-2) 51.0 mmHg Unknown 35-45 F Ordering Physician UnknownLaboratory Jgwbize6201-58-40 17:41:00Identifier 46814- 6 Result Time 2019-02-28 17:41:00Unknown Test Item Value Reference Range Comments Unknown (test code = 2021-4) 61 mmHg Unknown 41-51 F Ordering Physician UnknownLaboratory Oeqwrzs6399-91-91 17:41:00Identifier 94287- 6 Result Time 2019-02-28 17:41:00Unknown Test Item Value Reference Range Comments Unknown (test code = 96898-5) 86.2 % Unknown 70-80 F Ordering Physician UnknownLaboratory Sgbxvgx1465-70-45 17:41:00Identifier 60127- 6 Result Time 2019-02-28 17:41:00Unknown Test Item Value Reference Range Comments Unknown (test code = NullTestCode) 31.3 mmol/L Unknown 24-28 F Ordering Physician UnknownLaboratory Pvifbky5809-36-83 17:41:00Identifier 99118- 6 Result Time 2019-02-28 17:41:00Unknown Test Item Value Reference Range Comments Unknown (test code = NullTestCode) 8.7 mmol/L Unknown 0.0-4.0 F Ordering Physician UnknownLaboratory Nhfcxdd2945-95-57 08:40:00Identifier 98543- 6 Result Time 2019-02-10 08:40:00Unknown Test Item Value Reference Range Comments Unknown (test code = 4537-7) 68 mm/Hr Unknown 0-19 F Ordering Physician Unknown
--- OUTSIDE RECORDS SUMMARY | 2019-10-15 10:51 | XMS REPORT ---
:1950 Author Organization [facility] Care Team Providers Name Role Phone Unavailable Unavailable Unavailable Problems Condition Condition Condition Status Onset Resolution Last Treating Comments Name Details Category Date Date Treatment Clinician Date Chronic Chronic Diagnosis Active Patrice obstructive obstructive 08-01 Graves pulmonary pulmonary [id number] disease, disease, unspecified unspecified Hypertensiv Hypertensiv Diagnosis Active Patrice e heart and e heart and 08-01 Graves chronic chronic [id number] kidney kidney disease disease with heart with heart failure and failure and stage 1 stage 1 through through stage 4 stage 4 chronic chronic kidney kidney disease, or disease, or unspecified unspecified chronic chronic kidney kidney disease disease Chronic Chronic Diagnosis Active Patrice diastolic diastolic 08-01 Graves (congestive (congestive [id number] ) heart ) heart failure failure 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 08-01 Graves mellitus mellitus [id number] with with diabetic diabetic chronic chronic kidney kidney disease disease Chronic Chronic Diagnosis Active [place] kidney kidney 08-01 Graves disease, disease, [id number] stage 3 stage 3 (moderate) (moderate) 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 [place] coronary coronary artery artery without without angina angina pectoris pectoris 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 mellitus mellitus [id number] with with diabetic diabetic peripheral peripheral angiopathy angiopathy without without gangrene gangrene Rheumatoid Rheumatoid Diagnosis Active Patrice arthritis, arthritis, Graves unspecified unspecified [id number] 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 mellitus mellitus [id number] with with diabetic diabetic polyneuropa polyneuropa thy thy Major Major Diagnosis Active [place] depressive depressive Graves disorder, disorder, [id number] single single episode, episode, unspecified unspecified 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 [id number] Unspecified Unspecified Diagnosis Active Patrice osteoarthri osteoarthri Graves tis, tis, [id number] unspecified unspecified site site Personal Personal Diagnosis Active Patrice history of history of Graves pneumonia pneumonia [id number] (recurrent) (recurrent) Presence of Presence of Diagnosis Active 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 [id number] graft graft Presence of Presence of Diagnosis Active Patrice cardiac cardiac Graves 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 (current) (current) Graves use of use of [id number] aspirin aspirin construction superintendent alf Diagnosis Active Patrice (current) (current) Graves use of use of [id number] insulin insulin 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 Diagnosis Active Patrice (current) (current) Graves use of use of [id number] inhaled inhaled steroids steroids 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 [id number] toe(s) toe(s) 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 Graves other right other right [id number] toe(s) toe(s) Dependence Dependence Diagnosis Active Patrice on on Graves wheelchair wheelchair [id number] Pain frequent Pain Mgmt Resolve 2019-08-03 Anisha pain d - 13:00:00 [place] 11:30: [id number] Cardio edema Cardiovasc Resolve 2019-08-03 Anisha ular d 1- 13:00:00 [place] 11:30: [id number] 00 Respiratory dyspnea Respirator Resolve 2019-08-03 Anisha present y d - 13:00:00 [place]in 11:30: [id number] 00 Respiratory oxygen Respirator Resolve 2019-08-03 Anisha treatments y d 1- 13:00:00 [place] in home 11:30: [id number] Endo/Nhan diabetic Endo/Nhan Resolve 2019-08-03 Anisha foot care d 1- 13:00:00 [place]irstin 11:30: [id number] 00 Endo/Nhan anti-coagul Endo/Nhan Resolve 2019-08-03 Anisha ation d - 13:00:00 [place] therapy 11:30: [id number] 00 Integument skin Integument Resolve 2019-08-03 Anisha integrity d 1-03 13:00:00 [place] risk 11:30: [id number] 00 Nutrition nutritional Nutrition Resolve 2019-08-03 Anisha restriction d - 13:00:00 [place] s 11:30: [id number] 00 Neuro confusion Neuro/Emot Resolve 2019-08-03 Anisha present ion d 1- 13:00:00 [place] 11:30: [id number] 00 Neuro anxiety Neuro/Emot Resolve 2019-08-03 Anisha present ion d - 13:00:00 [place] 11:30: [id number] 00 Neuro impaired Neuro/Emot Resolve 2019-08-03 Anisha decision-ma ion d 08-03 13:00:00 [place] lionel 11:30: [id number] 00 Activity ADL Activity Resolve 2019-08-03 Anisha assistance d - 13:00:00 [place] required 11:30: [id number] 00 Activity self-care Activity Resolve 2019-08-03 Anisha deficit d - 13:00:00 [place] 11:30: [id number] 00 Safety fall risk Safety Resolve 2019-08-03 Anisha factor d 08-03 13:00:00 [place] present 11:30: [id number] 00 Safety can be left Safety Resolve 2019-08-03 Anisha alone for d 08-03 13:00:00 [place]in only short 11:30: [id number] 00 Safety risk for Safety Resolve 2019-08-03 Anisha hospitaliza d - 13:00:00 [place] tion 11:30: [id number] 00 Medication oral med Meds Resolve 2019-08-03 Anisha assistance d - 13:00:00 [place] required 11:30: [id number] 00 Medication injectable Meds Resolve 2019-08-03 Anisha med d - 13:00:00 [place] assistance 11:30: [id number] required 00 Medication knowledge/s Meds Resolve 2019-08-03 Anisha kill d - 13:00:00 [place] deficit: pt 11:30: [id number] 00 Musculoskel transfer Musculoske Resolve 2019-08-03 Anisha etal assistance letal d 08-03 13:00:00 [place] required 11:30: [id number] 00 Musculoskel requires Musculoske Resolve 2019-08-03 Anisha etal human letal d 08-03 13:00:00 Kirstin assist to 11:30: [id number] leave home 00 Musculoskel requires Musculoske Resolve 2019-08-03 Anisha etal special letal d 08-03 13:00:00 [place] transportat 11:30: [id number] ion 00 Allergies, Adverse Reactions, Alerts Allergy Name Allergy Status Severity Reaction(s) Onset Inactive Treating Comments Type Date Date Clinician minocycline Base Active Unknown Reaction 2018-08 Interface Ingredient Unknown 09-02 lisinopril Base Active Unknown Reaction 2018-08 Interface Ingredient Unknown 09-02 metoprolol Base Active Unknown Reaction 2018-08 Interface Ingredient Unknown 09-02 clopidogrel Base Active Unknown Reaction 2018-08 Interface Ingredient Unknown 09-02 Sulfa Unknown Active Unknown Reaction 2018-08 Interface (Sulfonamide Unknown 09-02 Antibiotics) Medications Ordered Filled Start Stop Current Ordering Indication Dosage Frequency Signature Comments Components Medication Medication Date Date Medication? Clinician (SIG) Name Name albuterol albuterol 2019- Yes Shallish Unknown Unknown sulfate HFA sulfate HFA 08-03 Deonte POOL 90 90 mcg/actuati mcg/actuati on aerosol on aerosol inhaler inhaler Aspirin Low Aspirin Low 2019- Yes Shallish Unknown Unknown Dose 81 mg Dose 81 mg 08-03 [place] POOL tablet,sarah tablet,sarah yed release yed release busPIRone busPIRone 2019- Yes Shallish Unknown Unknown 10 mg 10 mg 08-03 [place] POOL tablet tablet insulin insulin 2019- Yes Shallish Unknown Unknown lispro lispro 08-03 [place] POOL (U-100) 100 (U-100) 100 unit/mL unit/mL subcutaneou subcutaneou s pen s pen Lantus Lantus 2019- Yes Shallish Unknown Unknown Solostar Solostar 08-03 [place] POOL U-100 U-100 Insulin 100 Insulin 100 unit/mL (3 unit/mL (3 mL) mL) subcutaneou subcutaneou s pen s pen Lyrica 50 Lyrica 50 20200 2020- Yes Shallish Unknown Unknown mg capsule mg capsule 08-03 MD,Deonte montelukast montelukast 0 2020- Yes Shallish Unknown Unknown 10 mg 10 mg 08-03 MD,[place]onte tablet tablet Mucinex 600 Mucinex 600 0 2020- Yes Shallish Unknown Unknown mg tablet, mg tablet, 08-03 MD,[place] extended extended release release Multivitami Multivitami 0 2020- Yes Shallish Unknown Unknown n 50 Plus n 50 Plus 08-03 MD,[place] tablet tablet omeprazole omeprazole 0 2020- Yes [place]ish Unknown Unknown 20 mg 20 mg 08-03 MD,[place] capsule,del capsule,del ayed ayed release release Remeron 30 Remeron 30 0 2020- Yes [place]ish Unknown Unknown mg tablet mg tablet 08-03 MD,[place] Spiriva Spiriva 0 2020- Yes Shallish Unknown Unknown with with 08-03 MD,[place] HandiHaler HandiHaler 18 mcg and 18 mcg and inhalation inhalation capsules capsules Symbicort Symbicort 0 2020- Yes Shallish Unknown Unknown 160 mcg-4.5 160 mcg-4.5 08-03 ,[place] mcg/actuati mcg/actuati on HFA on HFA aerosol aerosol inhaler inhaler tamsulosin tamsulosin 0 2020- Yes Shallish Unknown Unknown 0.4 mg 0.4 mg 08-03 MD,[place] capsule capsule Tylenol Tylenol 0 2020- Yes Shallish Unknown Unknown Arthritis Arthritis 08-03 MD,[place] Pain 650 mg Pain 650 mg tablet,exte tablet,exte nded nded release release Vitamin D3 Vitamin D3 0 2020- Yes Shallish Unknown Unknown 1,000 unit 1,000 unit 08-03 MD,[place] capsule capsule Zocor 20 mg Zocor 20 mg 0 2020- Yes Shallish Unknown Unknown tablet tablet 08-03 MD,[place] Zoloft 25 Zoloft 25 0 2020- Yes Shallish Unknown Unknown mg tablet mg tablet 08-03 MD,[place] bisoprolol bisoprolol 2019- Yes Shallish Unknown Unknown fumarate 5 fumarate 5 08-03 ,[place] mg tablet mg tablet doxycycline doxycycline 2019- Yes Shallish Unknown Unknown hyclate 100 hyclate 100 08-03 ,[place] mg capsule mg capsule furosemide furosemide 2019- Yes [place] Unknown Unknown 20 mg 20 mg 08-03 ,[place] tablet tablet Probiotic Probiotic 2020- Yes Shallish Unknown Unknown Colon Colon 08-03 ,[place] Support 1.5 Support 1.5 billion billion cell cell capsule capsule Vital Signs Vital Name Observation Time Observation Value Comments SYSTOLIC mm[Hg] 2019-08-03 18:09:41 136 mm[Hg] mm[Hg] Method: Sit DIASTOLIC mm[Hg] 2019-08-03 18:09:41 80 mm[Hg] mm[Hg] Method: Sit PULSE 2019-08-03 18:09:41 60 /min /min TEMP 2019-08-03 18:09:41 97.8 [degF] Procedures This patient has no known procedures. Results This patient has no known results.
--- OUTSIDE RECORDS SUMMARY | 2019-10-15 10:51 | XMS REPORT ---
:1950 Author Organization [facility] Care Team Providers Name Role Phone Unavailable [...] Result Comments Laboratory Studies 2019-03-08 12:13:00 Identifier [id number] Result Time Unknown 2019-03-08 12:13:00 Test Item Value Reference Range Comments Unknown (test code = 2339-0) 312 mg/dL Unknown 70-100 F Ordering Physician UnknownLaboratory Lttmztc4979-95-38 06:25:00Identifier 20728- 6 Result Time 2019-03-08 06:25:00Unknown Test Item Value Reference Range Comments Unknown (test code = 2951-2) 136 mmol/L Unknown 135-145 F Ordering Physician UnknownLaboratory Bjvgtyj7205-63-73 06:25:00Identifier 79654- 6 Result Time 2019-03-08 06:25:00Unknown Test Item Value Reference Range Comments Unknown (test code = 2823-3) 3.7 mmol/L Unknown 3.5-5.0 F Ordering Physician UnknownLaboratory Bjizgme8891-13-93 06:25:00Identifier 06106- 6 Result Time 2019-03-08 06:25:00Unknown Test Item Value Reference Range Comments Unknown (test code = 2345-7) 175 mg/dL Unknown 70-100 F Ordering Physician UnknownLaboratory Htvifux3424-22-59 06:25:00Identifier 70642- 6 Result Time 2019-03-08 06:25:00Unknown Test Item Value Reference Range Comments Unknown (test code = 05765-7) 49.4 Unknown Unknown F Ordering Physician UnknownLaboratory Qguqzbt7342-97-86 06:25:00Identifier 80388- 6 Result Time 2019-03-08 06:25:00Unknown Test Item Value Reference Range Comments Unknown (test code = NullTestCode) 59.8 Unknown Unknown F Ordering Physician UnknownLaboratory Dmivopi0702-34-57 06:25:00Identifier 36224- 6 Result Time 2019-03-08 06:25:00Unknown Test Item Value Reference Range Comments Unknown (test code = 2160-0) 1.42 mg/dL Unknown 0.67-1.17 F Ordering Physician UnknownLaboratory Rkksqti3762-03-55 06:25:00Identifier 36008- 6 Result Time 2019-03-08 06:25:00Unknown Test Item Value Reference Range Comments Unknown (test code = 2075-0) 97 mmol/L Unknown 101-111 F Ordering Physician UnknownLaboratory Xmpzoyf9167-56-34 06:25:00Identifier 59819- 6 Result Time 2019-03-08 06:25:00Unknown Test Item Value Reference Range Comments Unknown (test code = 2028-9) 33 mmol/L Unknown 22-32 F Ordering Physician UnknownLaboratory Qlufwlt2882-79-16 06:25:00Identifier 44096- 6 Result Time 2019-03-08 06:25:00Unknown Test Item Value Reference Range Comments Unknown (test code = 25513-5) 9.6 mg/dL Unknown 8.6-10.3 F Ordering Physician UnknownLaboratory Qpklbkx4418-17-93 06:25:00Identifier 89837- 6 Result Time 2019-03-08 06:25:00Unknown Test Item Value Reference Range Comments Unknown (test code = 3094-0) 28 mg/dL Unknown 6-24 F Ordering Physician UnknownLaboratory Lbxwunc4967-33-98 06:25:00Identifier 62373- 6 Result Time 2019-03-08 06:25:00Unknown Test Item Value Reference Range Comments Unknown (test code = 3097-3) 19.7 Unknown 8-20 F Ordering Physician UnknownLaboratory Ppfwrzw3305-58-18 06:25:00Identifier 44968- 6 Result Time 2019-03-08 06:25:00Unknown Test Item Value Reference Range Comments Unknown (test code = 93790-6) 6 mmol/L Unknown 2-11 F Ordering Physician UnknownLaboratory Qmehnwg8799-35-21 06:25:00Identifier 33491- 6 Result Time 2019-03-08 06:25:00Unknown Test Item Value Reference Range Comments Unknown (test code = 92649-6) 7.7 10^3/uL Unknown 3.5-10.8 F Ordering Physician UnknownLaboratory Spobuaj6174-45-85 06:25:00Identifier 57097- 6 Result Time 2019-03-08 06:25:00Unknown Test Item Value Reference Range Comments Unknown (test code = 788-0) 15 % Unknown 10-15 F Ordering Physician UnknownLaboratory Pwczitw0422-39-77 06:25:00Identifier 10284- 6 Result Time 2019-03-08 06:25:00Unknown Test Item Value Reference Range Comments Unknown (test code = 789-8) 3.94 10^6 /uL Unknown 4.18-5.48 F Ordering Physician UnknownLaboratory Wnhmmiz5999-24-77 06:25:00Identifier 23783- 6 Result Time 2019-03-08 06:25:00Unknown Test Item Value Reference Range Comments Unknown (test code = 777-3) 164 10^3/uL Unknown 150-450 F Ordering Physician UnknownLaboratory Wrajiry8720-00-12 06:25:00Identifier 08974- 6 Result Time 2019-03-08 06:25:00Unknown Test Item Value Reference Range Comments Unknown (test code = 82658-5) 7.8 fL Unknown 7.4-10.4 F Ordering Physician UnknownLaboratory Rkbzyuf4644-01-48 06:25:00Identifier 97313- 6 Result Time 2019-03-08 06:25:00Unknown Test Item Value Reference Range Comments Unknown (test code = 787-2) 81 fL Unknown 80-94 F Ordering Physician UnknownLaboratory Tshzlpu1769-47-69 06:25:00Identifier 50181- 6 Result Time 2019-03-08 06:25:00Unknown Test Item Value Reference Range Comments Unknown (test code = 786-4) 34 g/dL Unknown 31-36 F Ordering Physician UnknownLaboratory Hmlbmbz9259-30-27 06:25:00Identifier 96404- 6 Result Time 2019-03-08 06:25:00Unknown Test Item Value Reference Range Comments Unknown (test code = 785-6) 27 pg Unknown 27-31 F Ordering Physician UnknownLaboratory Bjhscgz5982-16-65 06:25:00Identifier 74388- 6 Result Time 2019-03-08 06:25:00Unknown Test Item Value Reference Range Comments Unknown (test code = 718-7) 10.8 g/dL Unknown 14.0-18.0 F Ordering Physician UnknownLaboratory Sttsosl5627-47-78 06:25:00Identifier 39154- 6 Result Time 2019-03-08 06:25:00Unknown Test Item Value Reference Range Comments Unknown (test code = 4544-3) 32 % Unknown 42-52 F Ordering Physician UnknownLaboratory Cjknsgm4198-66-65 06:45:00Identifier 66683- 6 Result Time 2019-03-06 06:45:00Unknown Test Item Value Reference Range Comments Unknown (test code = 2777-1) 3.3 mg/dL Unknown 2.5-5.0 F Ordering Physician UnknownLaboratory Kbvifmh3930-37-60 06:45:00Identifier 20622- 6 Result Time 2019-03-06 06:45:00Unknown Test Item Value Reference Range Comments Unknown (test code = 97076-8) 2.1 mg/dL Unknown 1.9-2.7 F Ordering Physician UnknownLaboratory Ihnnfoo8728-50-26 13:59:00Identifier 19272- 6 Result Time 2019-03-04 13:59:00Unknown Test Item Value Reference Range Comments Unknown (test code = NullTestCode) Unknown Unknown F Ordering Physician UnknownLaboratory Cbikxyb1293-17-10 13:59:00Identifier 62195- 6 Result Time 2019-03-04 13:59:00Unknown Test Item Value Reference Range Comments Unknown (test code = 3034-6) 203 mg/dL Unknown 203-362 F Ordering Physician UnknownLaboratory Udtghyp4499-17-06 13:59:00Identifier 49889- 6 Result Time 2019-03-04 13:59:00Unknown Test Item Value Reference Range Comments Unknown (test code = 2500-7) 284 mcg/dL Unknown 250-450 F Ordering Physician UnknownLaboratory Veodezu3298-29-12 13:59:00Identifier 65010- 6 Result Time 2019-03-04 13:59:00Unknown Test Item Value Reference Range Comments Unknown (test code = NullTestCode) 13 % Unknown 15-55 F Ordering Physician UnknownLaboratory Uqzlywe3301-30-29 13:59:00Identifier 88102- 6 Result Time 2019-03-04 13:59:00Unknown Test Item Value Reference Range Comments Unknown (test code = 2498-4) 36 ug/dL Unknown 50-212 F Ordering Physician UnknownLaboratory Nxyfwjv9999-71-07 17:35:00Identifier 60715- 6 Result Time 2019-03-01 17:35:00Unknown Test Item Value Reference Range Comments Unknown (test code = 2132-9) 866 pg/mL Unknown 180-914 F Ordering Physician UnknownLaboratory Thmamgk2100-09-86 17:35:00Identifier 13602- 6 Result Time 2019-03-01 17:35:00Unknown Test Item Value Reference Range Comments Unknown (test code = 3053-6) 51 ng/dL Unknown 87-178 F Ordering Physician UnknownLaboratory Fozkbju7465-33-20 17:35:00Identifier 49251- 6 Result Time 2019-03-01 17:35:00Unknown Test Item Value Reference Range Comments Unknown (test code = 3051-0) 3.10 pg/mL Unknown 2.5-3.9 F Ordering Physician UnknownLaboratory Ykiutpz9851-97-13 17:35:00Identifier 28918- 6 Result Time 2019-03-01 17:35:00Unknown Test Item Value Reference Range Comments Unknown (test code = 3024-7) 0.86 ng/dL Unknown 0.61-1.12 F Ordering Physician UnknownLaboratory Uxjcowd7724-37-30 17:35:00Identifier 06807- 6 Result Time 2019-03-01 17:35:00Unknown Test Item Value Reference Range Comments Unknown (test code = 2157-6) 52 U/L Unknown 10-223 F Ordering Physician UnknownLaboratory Znyurgt1212-39-51 17:35:00Identifier 51611- 6 Result Time 2019-03-01 17:35:00Unknown Test Item Value Reference Range Comments Unknown (test code = 53256-7) 41 mcmol/L Unknown 16-53 F Ordering Physician UnknownLaboratory Nsornns4516-86-15 16:21:00Identifier 61506- 6 Result Time 2019-03-01 16:21:00Unknown Test Item Value Reference Range Comments Unknown (test code = 92333-1) 0.10 ng/mL Unknown Unknown F Ordering Physician UnknownLaboratory Yxozndq6022-17-13 05:20:00Identifier 45331- 6 Result Time 2019-03-01 05:20:00Unknown Test Item Value Reference Range Comments Unknown (test code = 74907-0) 0.0 Unknown Unknown F Ordering Physician UnknownLaboratory Mqabcrc8908-78-79 05:20:00Identifier 75489- 6 Result Time 2019-03-01 05:20:00Unknown Test Item Value Reference Range Comments Unknown (test code = 771-6) 0.0 10^3/ul Unknown Unknown F Ordering Physician UnknownLaboratory Uyhthrx1602-57-58 05:20:00Identifier 33439- 6 Result Time 2019-03-01 05:20:00Unknown Test Item Value Reference Range Comments Unknown (test code = 770-8) 92.0 % Unknown Unknown F Ordering Physician UnknownLaboratory Qyzwdtw9832-01-18 05:20:00Identifier 12914- 6 Result Time 2019-03-01 05:20:00Unknown Test Item Value Reference Range Comments Unknown (test code = 5905-5) 1.8 % Unknown Unknown F Ordering Physician UnknownLaboratory Hgfjxpv6770-58-18 05:20:00Identifier 13053- 6 Result Time 2019-03-01 05:20:00Unknown Test Item Value Reference Range Comments Unknown (test code = 736-9) 6.0 % Unknown Unknown F Ordering Physician UnknownLaboratory Rryektl9697-04-20 05:20:00Identifier 91206- 6 Result Time 2019-03-01 05:20:00Unknown Test Item Value Reference Range Comments Unknown (test code = 713-8) 0.0 % Unknown Unknown F Ordering Physician UnknownLaboratory Drijhca6995-12-33 05:20:00Identifier 63549- 6 Result Time 2019-03-01 05:20:00Unknown Test Item Value Reference Range Comments Unknown (test code = 706-2) 0.2 % Unknown Unknown F Ordering Physician UnknownLaboratory Hssqmnj9198-61-60 05:20:00Identifier 09136- 6 Result Time 2019-03-01 05:20:00Unknown Test Item Value Reference Range Comments Unknown (test code = ODW4708) 7.0 10^3/ul Unknown 1.5-7.7 F Ordering Physician UnknownLaboratory Tvfhzjq3787-63-04 05:20:00Identifier 45127- 6 Result Time 2019-03-01 05:20:00Unknown Test Item Value Reference Range Comments Unknown (test code = 742-7) 0.1 10^3/ul Unknown 0-0.8 F Ordering Physician UnknownLaboratory Tfdffsg9779-93-88 05:20:00Identifier 00743- 6 Result Time 2019-03-01 05:20:00Unknown Test Item Value Reference Range Comments Unknown (test code = 731-0) 0.5 10^3/ul Unknown 1.0-4.8 F Ordering Physician UnknownLaboratory Cqrsrgm7757-39-87 05:20:00Identifier 05948- 6 Result Time 2019-03-01 05:20:00Unknown Test Item Value Reference Range Comments Unknown (test code = 711-2) 0.0 10^3/ul Unknown 0-0.6 F Ordering Physician UnknownLaboratory Vfhrknu4599-61-29 05:20:00Identifier 42268- 6 Result Time 2019-03-01 05:20:00Unknown Test Item Value Reference Range Comments Unknown (test code = 704-7) 0.0 10^3/ul Unknown 0-0.2 F Ordering Physician UnknownLaboratory Vmbwnnn4799-16-09 01:05:00Identifier 74256- 6 Result Time 2019-03-01 01:05:00Unknown Test Item Value Reference Range Comments Unknown (test code = 2744-1) 7.37 Unknown 7.35-7.45 F Ordering Physician UnknownLaboratory Wbfoixu6920-13-15 01:05:00Identifier 81952- 6 Result Time 2019-03-01 01:05:00Unknown Test Item Value Reference Range Comments Unknown (test code = 88155-7) 211 mmHg Unknown 80-100 F Ordering Physician UnknownLaboratory Vgqepac2850-64-64 01:05:00Identifier 02183- 6 Result Time 2019-03-01 01:05:00Unknown Test Item Value Reference Range Comments Unknown (test code = NullTestCode) 51 mmHg Unknown 35-45 F Ordering Physician UnknownLaboratory Zwmynjg2688-00-10 01:05:00Identifier 61543- 6 Result Time 2019-03-01 01:05:00Unknown Test Item Value Reference Range Comments Unknown (test code = 2708-6) 99.9 % Unknown 94.0-98.0 F Ordering Physician UnknownLaboratory Vqhmpml5596-85-14 01:05:00Identifier 09144- 6 Result Time 2019-03-01 01:05:00Unknown Test Item Value Reference Range Comments Unknown (test code = 1960-4) 27.4 mmol/L Unknown 19-31 F Ordering Physician UnknownLaboratory Tcbxmav9316-23-93 01:05:00Identifier 38007- 6 Result Time 2019-03-01 01:05:00Unknown Test Item Value Reference Range Comments Unknown (test code = 1925-7) 3.1 mmol/L Unknown -2.0-2.0 F Ordering Physician UnknownLaboratory Mogqvtx8498-92-45 01:05:00Identifier 92116- 6 Result Time 2019-03-01 01:05:00Unknown Test Item Value Reference Range Comments Unknown (test code = NullTestCode) 80 Unknown Unknown F Ordering Physician UnknownLaboratory Awgwewj9005-21-28 01:05:00Identifier 19775- 6 Result Time 2019-03-01 01:05:00Unknown Test Item Value Reference Range Comments Unknown (test code = NullTestCode) 500 Unknown Unknown F Ordering Physician UnknownLaboratory Vsefbzl9523-06-48 01:05:00Identifier 58995- 6 Result Time 2019-03-01 01:05:00Unknown Test Item Value Reference Range Comments Unknown (test code = NullTestCode) 15 Unknown Unknown F Ordering Physician UnknownLaboratory Zormtds6155-19-18 01:05:00Identifier 11193- 6 Result Time 2019-03-01 01:05:00Unknown Test Item Value Reference Range Comments Unknown (test code = NullTestCode) 5 Unknown Unknown F Ordering Physician UnknownLaboratory Zvqbvhg3029-84-25 20:56:00Identifier 60725- 6 Result Time 2019-02-28 20:56:00Unknown Test Item Value Reference Range Comments Unknown (test code = 3016-3) 1.25 mcIU/mL Unknown 0.34-5.60 F Ordering Physician UnknownLaboratory Zpllyuk9766-32-15 20:56:00Identifier 22856- 6 Result Time 2019-02-28 20:56:00Unknown Test Item Value Reference Range Comments Unknown (test code = 2885-2) 7.0 g/dL Unknown 6.4-8.9 F Ordering Physician UnknownLaboratory Ahpdmag8448-21-56 20:56:00Identifier 72247- 6 Result Time 2019-02-28 20:56:00Unknown Test Item Value Reference Range Comments Unknown (test code = 1975-2) 0.50 mg/dL Unknown 0.2-1.0 F Ordering Physician UnknownLaboratory Dvfqcjq8023-40-28 20:56:00Identifier 30064- 6 Result Time 2019-02-28 20:56:00Unknown Test Item Value Reference Range Comments Unknown (test code = NullTestCode) 3.4 g/dL Unknown 2-4 F Ordering Physician UnknownLaboratory Xbneutk2677-52-35 20:56:00Identifier 79319- 6 Result Time 2019-02-28 20:56:00Unknown Test Item Value Reference Range Comments Unknown (test code = 1988-5) 64.61 mg/L Unknown 0-8.00 F Ordering Physician UnknownLaboratory Szhdmkg1353-39-31 20:56:00Identifier 23610- 6 Result Time 2019-02-28 20:56:00Unknown Test Item Value Reference Range Comments Unknown (test code = 1920-8) 16 U/L Unknown 13-39 F Ordering Physician UnknownLaboratory Avfelzg8698-96-42 20:56:00Identifier 66916- 6 Result Time 2019-02-28 20:56:00Unknown Test Item Value Reference Range Comments Unknown (test code = 6768-6) 60 U/L Unknown 34-104 F Ordering Physician UnknownLaboratory Vuarsgs8050-78-47 20:56:00Identifier 78707- 6 Result Time 2019-02-28 20:56:00Unknown Test Item Value Reference Range Comments Unknown (test code = 1759-0) 1.1 Unknown 1-3 F Ordering Physician UnknownLaboratory Bvbzxde7688-61-59 20:56:00Identifier 09700- 6 Result Time 2019-02-28 20:56:00Unknown Test Item Value Reference Range Comments Unknown (test code = 88180-0) 3.6 g/dL Unknown 3.2-5.2 F Ordering Physician UnknownLaboratory Dmqrtfq0986-00-81 20:56:00Identifier 04386- 6 Result Time 2019-02-28 20:56:00Unknown Test Item Value Reference Range Comments Unknown (test code = 1742-6) 11 U/L Unknown 7-52 F Ordering Physician UnknownLaboratory Mpoyxsx6248-62-30 20:56:00Identifier 82535- 6 Result Time 2019-02-28 20:56:00Unknown Test Item Value Reference Range Comments Unknown (test code = 16309-4) 224 pg/mL Unknown Unknown F Ordering Physician UnknownLaboratory Bhctpqk6076-96-84 20:56:00Identifier 76894- 6 Result Time 2019-02-28 20:56:00Unknown Test Item Value Reference Range Comments Unknown (test code = 2524-7) 1.4 mmol/L Unknown 0.5-2.0 F Ordering Physician UnknownLaboratory Ooemvvz0128-75-37 20:56:00Identifier 62812- 6 Result Time 2019-02-28 20:56:00Unknown Test Item Value Reference Range Comments Unknown (test code = 96599-5) 1.12 Unknown 0.82-1.09 F Ordering Physician UnknownLaboratory Anpgknq6766-66-56 20:56:00Identifier 44961- 6 Result Time 2019-02-28 20:56:00Unknown Test Item Value Reference Range Comments Unknown (test code = 42848-2) 36.2 seconds Unknown 26.0-38.0 F Ordering Physician UnknownLaboratory Tjucrsr1821-48-97 20:49:00Identifier 23837- 6 Result Time 2019-02-28 20:49:00Unknown Test Item Value Reference Range Comments Unknown (test code = NullTestCode) 6.0 Unknown 5-9 F Ordering Physician UnknownLaboratory Rsieanr7948-66-63 20:49:00Identifier 49373- 6 Result Time 2019-02-28 20:49:00Unknown Test Item Value Reference Range Comments Unknown (test code = 57040-9) 1.008 Unknown 1.010-1.030 F Ordering Physician UnknownLaboratory Uckotyb8233-50-49 17:41:00Identifier 28528- 6 Result Time 2019-02-28 17:41:00Unknown Test Item Value Reference Range Comments Unknown (test code = 2746-6) 7.38 Unknown 7.32-7.43 F Ordering Physician UnknownLaboratory Ryovykz1332-00-05 17:41:00Identifier 96637- 6 Result Time 2019-02-28 17:41:00Unknown Test Item Value Reference Range Comments Unknown (test code = 2705-2) 51.0 mmHg Unknown 35-45 F Ordering Physician UnknownLaboratory Tlqyweg3019-56-23 17:41:00Identifier 29340- 6 Result Time 2019-02-28 17:41:00Unknown Test Item Value Reference Range Comments Unknown (test code = 2021-4) 61 mmHg Unknown 41-51 F Ordering Physician UnknownLaboratory Nyvdeph4823-50-09 17:41:00Identifier 67883- 6 Result Time 2019-02-28 17:41:00Unknown Test Item Value Reference Range Comments Unknown (test code = 99968-2) 86.2 % Unknown 70-80 F Ordering Physician UnknownLaboratory Gajonge9453-78-48 17:41:00Identifier 82819- 6 Result Time 2019-02-28 17:41:00Unknown Test Item Value Reference Range Comments Unknown (test code = NullTestCode) 31.3 mmol/L Unknown 24-28 F Ordering Physician UnknownLaboratory Ozvvczc9425-62-41 17:41:00Identifier 95958- 6 Result Time 2019-02-28 17:41:00Unknown Test Item Value Reference Range Comments Unknown (test code = NullTestCode) 8.7 mmol/L Unknown 0.0-4.0 F Ordering Physician UnknownLaboratory Xgmufxb1634-89-40 08:40:00Identifier 78743- 6 Result Time 2019-02-10 08:40:00Unknown Test Item Value Reference Range Comments Unknown (test code = 4537-7) 68 mm/Hr Unknown 0-19 F Ordering Physician Unknown
--- OUTSIDE RECORDS SUMMARY | 2019-10-15 10:51 | XMS REPORT ---
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 08-01 Graves pulmonary pulmonary [id number] disease, disease, unspecified unspecified Hypertensiv Hypertensiv Diagnosis Active Patrice e heart and e heart and 08-01 Graves chronic chronic [id number] kidney kidney disease disease with heart with heart failure and failure and stage 1 stage 1 through through stage 4 stage 4 chronic chronic kidney kidney disease, or disease, or unspecified unspecified chronic chronic kidney kidney disease disease Chronic Chronic Diagnosis Active Patrice diastolic diastolic 08-01 Graves (congestive (congestive [id number] ) heart ) heart failure failure 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 08-01 Graves mellitus mellitus [id number] with with diabetic diabetic chronic chronic kidney kidney disease disease Chronic Chronic Diagnosis Active [place] kidney kidney 08-01 Graves disease, disease, [id number] stage 3 stage 3 (moderate) (moderate) 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 [id number] [place] coronary coronary artery artery without without angina angina pectoris pectoris 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 mellitus mellitus [id number] with with diabetic diabetic peripheral peripheral angiopathy angiopathy without without gangrene gangrene Rheumatoid Rheumatoid Diagnosis Active Patrice arthritis, arthritis, Graves unspecified unspecified [id number] 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 mellitus 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 with with diabetic diabetic polyneuropa polyneuropa thy thy Major Major Diagnosis Active [place] depressive depressive Graves disorder, disorder, [id number] single single episode, episode, unspecified unspecified 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 [place] myocardial myocardial Graves infarction infarction [id number] Unspecified Unspecified Diagnosis Active Patrice osteoarthri osteoarthri Graves tis, tis, [id number] unspecified unspecified site site Personal Personal Diagnosis Active Patrice history of history of Graves pneumonia pneumonia [id number] (recurrent) (recurrent) Presence of Presence of Diagnosis Active 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 [id number] graft graft Presence of Presence of Diagnosis Active Patrice cardiac cardiac Graves pacemaker 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 Patrice (current) (current) Graves use of use of [id number] aspirin aspirin 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 longterm Diagnosis Active Patrice (current) (current) Graves use of use of [id number] insulin insulin 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 Diagnosis Active Patrice (current) (current) Graves use of use of [id number] inhaled inhaled steroids steroids 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 [id number] toe(s) toe(s) 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 Graves other right other right [id number] toe(s) toe(s) Dependence Dependence Diagnosis Active Patrice on on Graves wheelchair wheelchair [id number] Pain frequent Pain Mgmt Resolve 2019-08-03 Anisha pain d - 13:00:00 [place] 11:30: [id number] 00 Cardio edema Cardiovasc Resolve 2019-08-03 Anisha ular d 1- 13:00:00 [place] 11:30: [id number] 00 Respiratory dyspnea Respirator Resolve 2019-08-03 Anisha present y d - 13:00:00 [place] 11:30: [id number] 00 Respiratory oxygen Respirator Resolve 2019-08-03 Anisha treatments y d 1- 13:00:00 [place] in home 11:30: [id number] 00 Endo/Nhan diabetic Endo/Nhan Resolve 2019-08-03 Anisha foot care d 1- 13:00:00 [place] 11:30: [id number] 00 Endo/Nhan anti-coagul Endo/Nhan Resolve 2019-08-03 Anisha ation d - 13:00:00 [place] therapy 11:30: [id number] 00 Integument skin Integument Resolve 2019-08-03 Anisha integrity d 1-03 13:00:00 [place] risk 11:30: [id number] 00 Nutrition nutritional Nutrition Resolve 2019-08-03 Anisha restriction d - 13:00:00 [place] s 11:30: [id number] 00 Neuro confusion Neuro/Emot Resolve 2019-08-03 Anisha present ion d 1- 13:00:00 [place] 11:30: [id number] 00 Neuro anxiety Neuro/Emot Resolve 2019-08-03 Anisha present ion d - 13:00:00 [place] 11:30: [id number] 00 Neuro impaired Neuro/Emot Resolve 2019-08-03 Anisha decision-ma ion d 08-03 13:00:00 [place] lionel 11:30: [id number] 00 Activity ADL Activity Resolve 2019-08-03 Anisha assistance d - 13:00:00 [place] required 11:30: [id number] 00 Activity self-care Activity Resolve 2019-08-03 Anisha deficit d - 13:00:00 [place] 11:30: [id number] 00 Safety fall risk Safety Resolve 2019-08-03 Anisha factor d 08-03 13:00:00 [place] present 11:30: [id number] 00 Safety can be left Safety Resolve 2019-08-03 Anisha alone for d 08-03 13:00:00 [place] only short 11:30: [id number] periods 00 Safety risk for Safety Resolve 2019-08-03 Anisha hospitaliza d - 13:00:00 [place] tion 11:30: [id number] 00 Medication oral med Meds Resolve 2019-08-03 Anisha assistance d - 13:00:00 [place] required 11:30: [id number] 00 Medication injectable Meds Resolve 2019-08-03 Anisha med d - 13:00:00 [place] assistance 11:30: [id number] required 00 Medication knowledge/s Meds Resolve 2019-08-03 Anisha kill d - 13:00:00 [place] deficit: pt 11:30: [id number] 00 Musculoskel transfer Musculoske Resolve 2019-08-03 Anisha etal assistance letal d 08-03 13:00:00 Kirstin required 11:30: [id number] 00 Musculoskel requires Musculoske Resolve 2019-08-03 Anisha etal human letal d 08-03 13:00:00 Kirstin assist to 11:30: [id number] leave home 00 Musculoskel requires Musculoske Resolve 2019-08-03 Anisha etal special letal d 08-03 13:00:00 [place] transportat 11:30: [id number] ion 00 Allergies, Adverse Reactions, Alerts Allergy [...]
--- OUTSIDE RECORDS SUMMARY | 2019-10-15 10:51 | XMS REPORT ---
:1950 Author Organization [facility] Care Team Providers Name Role Phone Unavailable Unavailable Unavailable Problems Condition Condition Condition Status Onset Resolution Last Treating Comments Name Details Category Date Date Treatment Clinician Date Chronic Chronic Diagnosis Active Patrice obstructive obstructive 08-01 Graves pulmonary pulmonary [id number] disease, disease, unspecified unspecified Hypertensiv Hypertensiv Diagnosis Active Patrice e heart and e heart and 08-01 Graves chronic chronic [id number] kidney kidney disease disease with heart with heart failure and failure and stage 1 stage 1 through through stage 4 stage 4 chronic chronic kidney kidney disease, or disease, or unspecified unspecified chronic chronic kidney kidney disease disease Chronic Chronic Diagnosis Active Patrice diastolic diastolic 08-01 Graves (congestive (congestive [id number] ) heart ) heart failure failure 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 08-01 Graves mellitus mellitus [id number] with with diabetic diabetic chronic chronic kidney kidney disease disease Chronic Chronic Diagnosis Active [place] kidney kidney 08-01 Graves disease, disease, [id number] stage 3 stage 3 (moderate) (moderate) 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 [id number] [place] coronary coronary artery artery without without angina angina pectoris pectoris 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 mellitus mellitus [id number] with with diabetic diabetic peripheral peripheral angiopathy angiopathy without without gangrene gangrene Rheumatoid Rheumatoid Diagnosis Active Patrice arthritis, arthritis, Graves unspecified unspecified [id number] 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 mellitus mellitus [id number] with with diabetic diabetic polyneuropa polyneuropa thy thy Major Major Diagnosis Active [place] depressive depressive Graves disorder, disorder, [id number] single single episode, episode, unspecified unspecified 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 [place] myocardial myocardial Graves infarction infarction [id number] Unspecified Unspecified Diagnosis Active Patrice osteoarthri osteoarthri Graves tis, tis, [id number] unspecified unspecified site site Personal Personal Diagnosis Active Patrice history of history of Graves pneumonia pneumonia [id number] (recurrent) (recurrent) Presence of Presence of Diagnosis Active 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 [id number] graft graft Presence of Presence of Diagnosis Active Patrice cardiac cardiac Graves pacemaker pacemaker 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 Diagnosis Active Patrice (current) (current) Graves use of use of [id number] aspirin aspirin intermediate manager residential Diagnosis Active Patrice (current) (current) Graves use of use of [id number] insulin insulin 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 Diagnosis Active Patrice (current) (current) Graves use of use of [id number] inhaled inhaled steroids steroids 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 [id number] toe(s) toe(s) 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 Graves other right other right [id number] toe(s) toe(s) Dependence Dependence Diagnosis Active Patrice on on Graves wheelchair wheelchair [id number] Pain frequent Pain Mgmt Resolve 2019-08-03 Anisha pain d - 13:00:00 [place] 11:30: [id number] 00 Cardio edema Cardiovasc Resolve 2019-08-03 Anisha ular d 1- 13:00:00 [place] 11:30: [id number] 00 Respiratory dyspnea Respirator Resolve 2019-08-03 Anisha present y d - 13:00:00 [place]in 11:30: [id number] 00 Respiratory oxygen Respirator Resolve 2019-08-03 Anisha treatments y d 1- 13:00:00 [place]irstin in home 11:30: [id number] 00 Endo/Nhan diabetic Endo/Nhan Resolve 2019-08-03 Anisha foot care d 1- 13:00:00 [place] 11:30: [id number] 00 Endo/Nhan anti-coagul Endo/Nhan Resolve 2019-08-03 Anisha ation d - 13:00:00 [place] therapy 11:30: [id number] 00 Integument skin Integument Resolve 2019-08-03 Anisha integrity d 1-03 13:00:00 [place] risk 11:30: [id number] 00 Nutrition nutritional Nutrition Resolve 2019-08-03 Anisha restriction d - 13:00:00 [place] s 11:30: [id number] 00 Neuro confusion Neuro/Emot Resolve 2019-08-03 Anisha present ion d 1- 13:00:00 [place] 11:30: [id number] 00 Neuro anxiety Neuro/Emot Resolve 2019-08-03 Anisha present ion d - 13:00:00 [place] 11:30: [id number] 00 Neuro impaired Neuro/Emot Resolve 2019-08-03 Anisha decision-ma ion d 08-03 13:00:00 [place] lionel 11:30: [id number] 00 Activity ADL Activity Resolve 2019-08-03 Anisha assistance d - 13:00:00 [place] required 11:30: [id number] 00 Activity self-care Activity Resolve 2019-08-03 Anisha deficit d - 13:00:00 [place] 11:30: [id number] 00 Safety fall risk Safety Resolve 2019-08-03 Anisha factor d 08-03 13:00:00 [place] present 11:30: [id number] 00 Safety can be left Safety Resolve 2019-08-03 Anisha alone for d 08-03 13:00:00 [place]irstin only short 11:30: [id number] periods 00 Safety risk for Safety Resolve 2019-08-03 Anisha hospitaliza d - 13:00:00 [place] tion 11:30: [id number] 00 Medication oral med Meds Resolve 2019-08-03 Anisha assistance d - 13:00:00 [place] required 11:30: [id number] 00 Medication injectable Meds Resolve 2019-08-03 Anisha med d - 13:00:00 [place] assistance 11:30: [id number] required 00 Medication knowledge/s Meds Resolve 2019-08-03 Anisha kill d - 13:00:00 [place] deficit: pt 11:30: [id number] 00 Musculoskel transfer Musculoske Resolve 2019-08-03 Anisha etal assistance letal d 08-03 13:00:00 Kirstin required 11:30: [id number] 00 Musculoskel requires Musculoske Resolve 2019-08-03 Anisha etal human letal d 08-03 13:00:00 Kirstin assist to 11:30: [id number] leave home 00 Musculoskel requires Musculoske Resolve 2019-08-03 Anisha etal special letal d 08-03 13:00:00 [place] transportat 11:30: [id number] ion 00 Allergies, Adverse Reactions, Alerts Allergy [...]
--- OUTSIDE RECORDS SUMMARY | 2019-10-15 10:52 | XMS REPORT ---
:1950 Author Organization [facility] Care Team Providers Name Role Phone Unavailable Unavailable Unavailable Problems Condition Condition Condition Status Onset Resolution Last Treating Comments Name Details Category Date Date Treatment Clinician Date Chronic Chronic Diagnosis Active Patrice obstructive obstructive 08-01 Graves pulmonary pulmonary [id number] disease, disease, unspecified unspecified Hypertensiv Hypertensiv Diagnosis Active Patrice e heart and e heart and 08-01 Graves chronic chronic [id number] kidney kidney disease disease with heart with heart failure and failure and stage 1 stage 1 through through stage 4 stage 4 chronic chronic kidney kidney disease, or disease, or unspecified unspecified chronic chronic kidney kidney disease disease Chronic Chronic Diagnosis Active [place] diastolic diastolic 08-01 Graves (congestive (congestive [id number] ) heart ) heart failure failure 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 08-01 Graves mellitus mellitus [id number] with with diabetic diabetic chronic chronic kidney kidney disease disease Chronic Chronic Diagnosis Active [place] kidney kidney 08-01 Graves disease, disease, [id number] stage 3 stage 3 (moderate) (moderate) 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 [id number] [place] coronary coronary artery artery without without angina angina pectoris pectoris 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 mellitus mellitus [id number] with with diabetic diabetic peripheral peripheral angiopathy angiopathy without without gangrene gangrene Rheumatoid Rheumatoid Diagnosis Active Patrice arthritis, arthritis, Graves unspecified unspecified [id number] 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 mellitus mellitus [id number] with with diabetic diabetic polyneuropa polyneuropa thy thy Major Major Diagnosis Active [place] depressive depressive Graves disorder, disorder, [id number] single single episode, episode, unspecified unspecified 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 [place] myocardial myocardial Graves infarction infarction [id number] Unspecified Unspecified Diagnosis Active Patrice osteoarthri osteoarthri Graves tis, tis, [id number] unspecified unspecified site site Personal Personal Diagnosis Active Patrice history of history of Graves pneumonia pneumonia [id number] (recurrent) (recurrent) Presence of Presence of Diagnosis Active 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 HG619614 graft graft Presence of Presence of Diagnosis Active Patrice cardiac cardiac Graves pacemaker pacemaker 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 (current) (current) Graves use of use of [id number] aspirin aspirin 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 [facility] Diagnosis Active Patrice (current) (current) Graves use of use of [id number] insulin insulin 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 Diagnosis Active Patrice (current) (current) Graves use of use of [id number] inhaled inhaled steroids steroids 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 [id number] toe(s) toe(s) 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 Graves other right other right [id number] toe(s) toe(s) Dependence Dependence Diagnosis Active Patrice on on Graves wheelchair wheelchair [id number] Pain frequent Pain Mgmt Resolve 2019-08-03 Anisha pain d - 13:00:00 [place] 11:30: [id number] 00 Cardio edema Cardiovasc Resolve 2019-08-03 Anisha ular d 1- 13:00:00 [place] 11:30: [id number] 00 Respiratory dyspnea Respirator Resolve 2019-08-03 Anisha present y d - 13:00:00 [place] 11:30: [id number] 00 Respiratory oxygen Respirator Resolve 2019-08-03 Anisha treatments y d 1- 13:00:00 [place]irstin in home 11:30: [id number] 00 Endo/Nhan diabetic Endo/Nhan Resolve 2019-08-03 Anisha foot care d 1- 13:00:00 [place] 11:30: [id number] 00 Endo/Nhan anti-coagul Endo/Nhan Resolve 2019-08-03 Anisha ation d - 13:00:00 [place] therapy 11:30: [id number] 00 Integument skin Integument Resolve 2019-08-03 Anisha integrity d 1-03 13:00:00 [place] risk 11:30: [id number] 00 Nutrition nutritional Nutrition Resolve 2019-08-03 Anisha restriction d - 13:00:00 [place] s 11:30: [id number] 00 Neuro confusion Neuro/Emot Resolve 2019-08-03 Anisha present ion d 1- 13:00:00 [place] 11:30: [id number] 00 Neuro anxiety Neuro/Emot Resolve 2019-08-03 Anisha present ion d - 13:00:00 [place] 11:30: [id number] 00 Neuro impaired Neuro/Emot Resolve 2019-08-03 Anisha decision-ma ion d 08-03 13:00:00 [place] lionel 11:30: [id number] 00 Activity ADL Activity Resolve 2019-08-03 Anisha assistance d - 13:00:00 [place] required 11:30: [id number] 00 Activity self-care Activity Resolve 2019-08-03 Anisha deficit d - 13:00:00 [place] 11:30: [id number] 00 Safety fall risk Safety Resolve 2019-08-03 Anisha factor d 08-03 13:00:00 [place] present 11:30: [id number] 00 Safety can be left Safety Resolve 2019-08-03 Anisha alone for d 08-03 13:00:00 [place]in only short 11:30: [id number] periods 00 Safety risk for Safety Resolve 2019-08-03 Anisha hospitaliza d - 13:00:00 [place] tion 11:30: [id number] 00 Medication oral med Meds Resolve 2019-08-03 Anisha assistance d - 13:00:00 [place] required 11:30: [id number] 00 Medication injectable Meds Resolve 2019-08-03 Anisha med d - 13:00:00 [place] assistance 11:30: [id number] required 00 Medication knowledge/s Meds Resolve 2019-08-03 Anisha kill d - 13:00:00 [place] deficit: pt 11:30: [id number] 00 Musculoskel transfer Musculoske Resolve 2019-08-03 Anisha etal assistance letal d 08-03 13:00:00 Kirstin required 11:30: [id number] 00 Musculoskel requires Musculoske Resolve 2019-08-03 Anisha etal human letal d 08-03 13:00:00 Kirstin assist to 11:30: [id number] leave home 00 Musculoskel requires Musculoske Resolve 2019-08-03 Anisha etal special letal d 08-03 13:00:00 [place] transportat 11:30: [id number] ion 00 Allergies, Adverse Reactions, Alerts Allergy [...] Yes [place] Unknown Unknown Arthritis Arthritis 08-03 MD,Denote Pain 650 mg Pain 650 mg tablet,exte [...]
--- OUTSIDE RECORDS SUMMARY | 2019-10-15 10:52 | XMS REPORT ---
:1950 Author Organization [facility], [facility] Care Team Providers Name Role Phone Unavailable Unavailable Unavailable Problems Condition Condition Condition Status Onset Resolution Last Treating Comments Name Details Category Date Date Treatment Clinician Date Chronic Chronic Diagnosis Active Patrice obstructive obstructive 08-01 Graves pulmonary pulmonary [id number] disease, disease, unspecified unspecified Hypertensiv Hypertensiv Diagnosis Active Patrice e heart and e heart and 08-01 Graves chronic chronic [id number] kidney kidney disease disease with heart with heart failure and failure and stage 1 stage 1 through through stage 4 stage 4 chronic chronic kidney kidney disease, or disease, or unspecified unspecified chronic chronic kidney kidney disease disease Chronic Chronic Diagnosis Active Patrice diastolic diastolic 08-01 Graves (congestive (congestive [id number] ) heart ) heart failure failure 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 08-01 Graves mellitus mellitus [id number] with with diabetic diabetic chronic chronic kidney kidney disease disease Chronic Chronic Diagnosis Active Patrice kidney kidney 08-01 Graves disease, disease, [id number] stage 3 stage 3 (moderate) (moderate) 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 [id number] [place] coronary coronary artery artery without without angina angina pectoris pectoris 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 mellitus mellitus [id number] with with diabetic diabetic peripheral peripheral angiopathy angiopathy without without gangrene gangrene Rheumatoid Rheumatoid Diagnosis Active Patrice arthritis, arthritis, Graves unspecified unspecified [id number] 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 mellitus mellitus [id number] with with diabetic diabetic polyneuropa polyneuropa thy thy Major Major Diagnosis Active [place] depressive depressive Graves disorder, disorder, [id number] single single episode, episode, unspecified unspecified 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 [place] myocardial myocardial Graves infarction infarction [id number] Unspecified Unspecified Diagnosis Active Patrice osteoarthri osteoarthri Graves tis, tis, [id number] unspecified unspecified site site Personal Personal Diagnosis Active Patrice history of history of Graves pneumonia pneumonia [id number] (recurrent) (recurrent) Presence of Presence of Diagnosis Active 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 [id number] graft graft Presence of Presence of Diagnosis Active Patrice cardiac cardiac Graves pacemaker pacemaker 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 Active Patrice (current) (current) Graves use of use of [id number] aspirin aspirin [employer] 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 Diagnosis Active Patrice (current) (current) Graves use of use of [id number] insulin insulin 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 Diagnosis Active Patrice (current) (current) Graves use of use of [id number] inhaled inhaled steroids steroids 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 [id number] toe(s) toe(s) 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 Graves other right other right [id number] toe(s) toe(s) Dependence Dependence Diagnosis Active Patrice on on Graves wheelchair wheelchair [id number] Pain frequent Pain Mgmt Resolve 2019-08-03 Anisha pain d - 13:00:00 Kirstin 11:30: [id number] 00 Cardio edema Cardiovasc Resolve 2019-08-03 Anisha ular d 1- 13:00:00 [place] 11:30: [id number] 00 Respiratory dyspnea Respirator Resolve 2019-08-03 Anisha present y d - 13:00:00 [place] 11:30: [id number] 00 Respiratory oxygen Respirator Resolve 2019-08-03 Anisha treatments y d 1- 13:00:00 [place] in home 11:30: [id number] 00 Endo/Nhan diabetic Endo/Nhan Resolve 2019-08-03 Anisha foot care d 1- 13:00:00 Kirstin 11:30: [id number] 00 Endo/Nhan anti-coagul Endo/Nhan Resolve 2019-08-03 Anisha ation d - 13:00:00 [place] therapy 11:30: [id number] 00 Integument skin Integument Resolve 2019-08-03 Anisha integrity d 1-03 13:00:00 Kirstin risk 11:30: [id number] 00 Nutrition nutritional Nutrition Resolve 2019-08-03 Anisha restriction d - 13:00:00 [place] s 11:30: [id number] 00 Neuro confusion Neuro/Emot Resolve 2019-08-03 Anisha present ion d 1- 13:00:00 Kirstin 11:30: [id number] 00 Neuro anxiety Neuro/Emot Resolve 2019-08-03 Anisha present ion d - 13:00:00 [place] 11:30: [id number] 00 Neuro impaired Neuro/Emot Resolve 2019-08-03 Anisha decision-ma ion d 08-03 13:00:00 [place] lionel 11:30: [id number] 00 Activity ADL Activity Resolve 2019-08-03 Anisha assistance d - 13:00:00 [place] required 11:30: [id number] 00 Activity self-care Activity Resolve 2019-08-03 Anisha deficit d - 13:00:00 [place] 11:30: [id number] 00 Safety fall risk Safety Resolve 2019-08-03 Anisha factor d 08-03 13:00:00 [place] present 11:30: [id number] 00 Safety can be left Safety Resolve 2019-08-03 Anisha alone for d 08-03 13:00:00 [place] only short 11:30: [id number] periods 00 Safety risk for Safety Resolve 2019-08-03 Anisha hospitaliza d - 13:00:00 Kirstin tion 11:30: [id number] 00 Medication oral med Meds Resolve 2019-08-03 Anisha assistance d - 13:00:00 Kirstin required 11:30: [id number] 00 Medication injectable Meds Resolve 2019-08-03 Anisha med d - 13:00:00 Kirstin assistance 11:30: [id number] required 00 Medication knowledge/s Meds Resolve 2019-08-03 Anisha kill d - 13:00:00 Kirstin deficit: pt 11:30: [id number] 00 Musculoskel transfer Musculoske Resolve 2019-08-03 Anisha etal assistance letal d 08-03 13:00:00 [place] required 11:30: [id number] 00 Musculoskel requires Musculoske Resolve 2019-08-03 Anisha etal human letal d 08-03 13:00:00 [place] assist to 11:30: [id number] leave home 00 Musculoskel requires Musculoske Resolve 2019-08-03 Anisha etal special letal d 08-03 13:00:00 [place] transportat 11:30: [id number] ion 00 Allergies, Adverse Reactions, Alerts Allergy [...] Unknown Unknown mg tablet, mg tablet, 08-03 MD,Edonte extended extended release release Multivitami Multivitami 0 [...]
--- OUTSIDE RECORDS SUMMARY | 2019-10-15 10:52 | XMS REPORT ---
:1950 Author Organization [facility] Care Team Providers Name Role [...] Result Comments Laboratory Studies 2019-03-08 12:13:00 Identifier [id number] Result Time Unknown 2019-03-08 12:13:00 Test Item Value Reference Range Comments Unknown (test code = 2339-0) 312 mg/dL Unknown 70-100 F Ordering Physician UnknownLaboratory Xhmutzd5676-20-63 06:25:00Identifier 23874- 6 Result Time 2019-03-08 06:25:00Unknown Test Item Value Reference Range Comments Unknown (test code = 2951-2) 136 mmol/L Unknown 135-145 F Ordering Physician UnknownLaboratory Rugbvos4379-76-91 06:25:00Identifier 92797- 6 Result Time 2019-03-08 06:25:00Unknown Test Item Value Reference Range Comments Unknown (test code = 2823-3) 3.7 mmol/L Unknown 3.5-5.0 F Ordering Physician UnknownLaboratory Fcraesn2540-69-36 06:25:00Identifier 15978- 6 Result Time 2019-03-08 06:25:00Unknown Test Item Value Reference Range Comments Unknown (test code = 2345-7) 175 mg/dL Unknown 70-100 F Ordering Physician UnknownLaboratory Iznzjay2268-54-65 06:25:00Identifier 89969- 6 Result Time 2019-03-08 06:25:00Unknown Test Item Value Reference Range Comments Unknown (test code = 69799-7) 49.4 Unknown Unknown F Ordering Physician UnknownLaboratory Sqmvqdc8139-36-93 06:25:00Identifier 42206- 6 Result Time 2019-03-08 06:25:00Unknown Test Item Value Reference Range Comments Unknown (test code = NullTestCode) 59.8 Unknown Unknown F Ordering Physician UnknownLaboratory Lwjgczn5802-38-13 06:25:00Identifier 77555- 6 Result Time 2019-03-08 06:25:00Unknown Test Item Value Reference Range Comments Unknown (test code = 2160-0) 1.42 mg/dL Unknown 0.67-1.17 F Ordering Physician UnknownLaboratory Kqoayhu3924-37-61 06:25:00Identifier 25868- 6 Result Time 2019-03-08 06:25:00Unknown Test Item Value Reference Range Comments Unknown (test code = 2075-0) 97 mmol/L Unknown 101-111 F Ordering Physician UnknownLaboratory Qgibwka6413-74-04 06:25:00Identifier 67615- 6 Result Time 2019-03-08 06:25:00Unknown Test Item Value Reference Range Comments Unknown (test code = 2028-9) 33 mmol/L Unknown 22-32 F Ordering Physician UnknownLaboratory Bcxexms7749-71-55 06:25:00Identifier 41570- 6 Result Time 2019-03-08 06:25:00Unknown Test Item Value Reference Range Comments Unknown (test code = 99390-0) 9.6 mg/dL Unknown 8.6-10.3 F Ordering Physician UnknownLaboratory Xadcugr7652-83-86 06:25:00Identifier 70640- 6 Result Time 2019-03-08 06:25:00Unknown Test Item Value Reference Range Comments Unknown (test code = 3094-0) 28 mg/dL Unknown 6-24 F Ordering Physician UnknownLaboratory Ahwathe4955-13-11 06:25:00Identifier 22444- 6 Result Time 2019-03-08 06:25:00Unknown Test Item Value Reference Range Comments Unknown (test code = 3097-3) 19.7 Unknown 8-20 F Ordering Physician UnknownLaboratory Vwhroda6869-63-97 06:25:00Identifier 99070- 6 Result Time 2019-03-08 06:25:00Unknown Test Item Value Reference Range Comments Unknown (test code = 90381-9) 6 mmol/L Unknown 2-11 F Ordering Physician UnknownLaboratory Seezvpp4355-13-61 06:25:00Identifier 06644- 6 Result Time 2019-03-08 06:25:00Unknown Test Item Value Reference Range Comments Unknown (test code = 31151-8) 7.7 10^3/uL Unknown 3.5-10.8 F Ordering Physician UnknownLaboratory Nbptgzr8459-82-45 06:25:00Identifier 89475- 6 Result Time 2019-03-08 06:25:00Unknown Test Item Value Reference Range Comments Unknown (test code = 788-0) 15 % Unknown 10-15 F Ordering Physician UnknownLaboratory Eymhjlj1436-89-35 06:25:00Identifier 43547- 6 Result Time 2019-03-08 06:25:00Unknown Test Item Value Reference Range Comments Unknown (test code = 789-8) 3.94 10^6 /uL Unknown 4.18-5.48 F Ordering Physician UnknownLaboratory Krwjkaz7136-15-85 06:25:00Identifier 25142- 6 Result Time 2019-03-08 06:25:00Unknown Test Item Value Reference Range Comments Unknown (test code = 777-3) 164 10^3/uL Unknown 150-450 F Ordering Physician UnknownLaboratory Xjpqtvd3796-51-55 06:25:00Identifier 32942- 6 Result Time 2019-03-08 06:25:00Unknown Test Item Value Reference Range Comments Unknown (test code = 40144-3) 7.8 fL Unknown 7.4-10.4 F Ordering Physician UnknownLaboratory Jwwqbeo1916-94-56 06:25:00Identifier 82980- 6 Result Time 2019-03-08 06:25:00Unknown Test Item Value Reference Range Comments Unknown (test code = 787-2) 81 fL Unknown 80-94 F Ordering Physician UnknownLaboratory Kvtqhht5372-04-64 06:25:00Identifier 96624- 6 Result Time 2019-03-08 06:25:00Unknown Test Item Value Reference Range Comments Unknown (test code = 786-4) 34 g/dL Unknown 31-36 F Ordering Physician UnknownLaboratory Qiukdcv5612-46-13 06:25:00Identifier 60771- 6 Result Time 2019-03-08 06:25:00Unknown Test Item Value Reference Range Comments Unknown (test code = 785-6) 27 pg Unknown 27-31 F Ordering Physician UnknownLaboratory Xpyehbh1240-77-86 06:25:00Identifier 31991- 6 Result Time 2019-03-08 06:25:00Unknown Test Item Value Reference Range Comments Unknown (test code = 718-7) 10.8 g/dL Unknown 14.0-18.0 F Ordering Physician UnknownLaboratory Qcatkxd5698-12-00 06:25:00Identifier 21498- 6 Result Time 2019-03-08 06:25:00Unknown Test Item Value Reference Range Comments Unknown (test code = 4544-3) 32 % Unknown 42-52 F Ordering Physician UnknownLaboratory Ltsxrsz6914-63-41 06:45:00Identifier 93028- 6 Result Time 2019-03-06 06:45:00Unknown Test Item Value Reference Range Comments Unknown (test code = 2777-1) 3.3 mg/dL Unknown 2.5-5.0 F Ordering Physician UnknownLaboratory Irsxiir5208-63-57 06:45:00Identifier 85675- 6 Result Time 2019-03-06 06:45:00Unknown Test Item Value Reference Range Comments Unknown (test code = 49298-0) 2.1 mg/dL Unknown 1.9-2.7 F Ordering Physician UnknownLaboratory Ccsklim0474-05-22 13:59:00Identifier 84167- 6 Result Time 2019-03-04 13:59:00Unknown Test Item Value Reference Range Comments Unknown (test code = NullTestCode) Unknown Unknown F Ordering Physician UnknownLaboratory Txlbppw4503-16-74 13:59:00Identifier 00666- 6 Result Time 2019-03-04 13:59:00Unknown Test Item Value Reference Range Comments Unknown (test code = 3034-6) 203 mg/dL Unknown 203-362 F Ordering Physician UnknownLaboratory Gvbnrau3847-30-59 13:59:00Identifier 79597- 6 Result Time 2019-03-04 13:59:00Unknown Test Item Value Reference Range Comments Unknown (test code = 2500-7) 284 mcg/dL Unknown 250-450 F Ordering Physician UnknownLaboratory Pijgeuq5515-95-61 13:59:00Identifier 83804- 6 Result Time 2019-03-04 13:59:00Unknown Test Item Value Reference Range Comments Unknown (test code = NullTestCode) 13 % Unknown 15-55 F Ordering Physician UnknownLaboratory Gqhsmlo2454-05-72 13:59:00Identifier 87661- 6 Result Time 2019-03-04 13:59:00Unknown Test Item Value Reference Range Comments Unknown (test code = 2498-4) 36 ug/dL Unknown 50-212 F Ordering Physician UnknownLaboratory Heiqimg1215-75-59 17:35:00Identifier 06587- 6 Result Time 2019-03-01 17:35:00Unknown Test Item Value Reference Range Comments Unknown (test code = 2132-9) 866 pg/mL Unknown 180-914 F Ordering Physician UnknownLaboratory Nigahjz9020-44-26 17:35:00Identifier 23100- 6 Result Time 2019-03-01 17:35:00Unknown Test Item Value Reference Range Comments Unknown (test code = 3053-6) 51 ng/dL Unknown 87-178 F Ordering Physician UnknownLaboratory Zgbtomi9309-56-37 17:35:00Identifier 27258- 6 Result Time 2019-03-01 17:35:00Unknown Test Item Value Reference Range Comments Unknown (test code = 3051-0) 3.10 pg/mL Unknown 2.5-3.9 F Ordering Physician UnknownLaboratory Xubkhsk4717-54-18 17:35:00Identifier 69458- 6 Result Time 2019-03-01 17:35:00Unknown Test Item Value Reference Range Comments Unknown (test code = 3024-7) 0.86 ng/dL Unknown 0.61-1.12 F Ordering Physician UnknownLaboratory Gxzukiq7616-33-39 17:35:00Identifier 95420- 6 Result Time 2019-03-01 17:35:00Unknown Test Item Value Reference Range Comments Unknown (test code = 2157-6) 52 U/L Unknown 10-223 F Ordering Physician UnknownLaboratory Whyuzfo7293-88-60 17:35:00Identifier 29659- 6 Result Time 2019-03-01 17:35:00Unknown Test Item Value Reference Range Comments Unknown (test code = 83977-8) 41 mcmol/L Unknown 16-53 F Ordering Physician UnknownLaboratory Vdowohr0571-13-88 16:21:00Identifier 65487- 6 Result Time 2019-03-01 16:21:00Unknown Test Item Value Reference Range Comments Unknown (test code = 59490-3) 0.10 ng/mL Unknown Unknown F Ordering Physician UnknownLaboratory Vfxonph4619-22-12 05:20:00Identifier 10412- 6 Result Time 2019-03-01 05:20:00Unknown Test Item Value Reference Range Comments Unknown (test code = 15777-9) 0.0 Unknown Unknown F Ordering Physician UnknownLaboratory Lmvicyj1021-21-74 05:20:00Identifier 63010- 6 Result Time 2019-03-01 05:20:00Unknown Test Item Value Reference Range Comments Unknown (test code = 771-6) 0.0 10^3/ul Unknown Unknown F Ordering Physician UnknownLaboratory Svqzfeo4770-76-73 05:20:00Identifier 56807- 6 Result Time 2019-03-01 05:20:00Unknown Test Item Value Reference Range Comments Unknown (test code = 770-8) 92.0 % Unknown Unknown F Ordering Physician UnknownLaboratory Sppgjba0700-65-42 05:20:00Identifier 35923- 6 Result Time 2019-03-01 05:20:00Unknown Test Item Value Reference Range Comments Unknown (test code = 5905-5) 1.8 % Unknown Unknown F Ordering Physician UnknownLaboratory Dpzmczc7732-40-19 05:20:00Identifier 79802- 6 Result Time 2019-03-01 05:20:00Unknown Test Item Value Reference Range Comments Unknown (test code = 736-9) 6.0 % Unknown Unknown F Ordering Physician UnknownLaboratory Usrcsjm3117-09-30 05:20:00Identifier 01301- 6 Result Time 2019-03-01 05:20:00Unknown Test Item Value Reference Range Comments Unknown (test code = 713-8) 0.0 % Unknown Unknown F Ordering Physician UnknownLaboratory Vkbqzve5585-99-60 05:20:00Identifier 05488- 6 Result Time 2019-03-01 05:20:00Unknown Test Item Value Reference Range Comments Unknown (test code = 706-2) 0.2 % Unknown Unknown F Ordering Physician UnknownLaboratory Wmwkish6009-55-03 05:20:00Identifier 84944- 6 Result Time 2019-03-01 05:20:00Unknown Test Item Value Reference Range Comments Unknown (test code = LFG9961) 7.0 10^3/ul Unknown 1.5-7.7 F Ordering Physician UnknownLaboratory Zipjqgo2520-95-61 05:20:00Identifier 65227- 6 Result Time 2019-03-01 05:20:00Unknown Test Item Value Reference Range Comments Unknown (test code = 742-7) 0.1 10^3/ul Unknown 0-0.8 F Ordering Physician UnknownLaboratory Jfulvtv7155-14-96 05:20:00Identifier 61533- 6 Result Time 2019-03-01 05:20:00Unknown Test Item Value Reference Range Comments Unknown (test code = 731-0) 0.5 10^3/ul Unknown 1.0-4.8 F Ordering Physician UnknownLaboratory Vvrkyhd3781-94-55 05:20:00Identifier 22466- 6 Result Time 2019-03-01 05:20:00Unknown Test Item Value Reference Range Comments Unknown (test code = 711-2) 0.0 10^3/ul Unknown 0-0.6 F Ordering Physician UnknownLaboratory Xbdgeoe6796-63-62 05:20:00Identifier 66084- 6 Result Time 2019-03-01 05:20:00Unknown Test Item Value Reference Range Comments Unknown (test code = 704-7) 0.0 10^3/ul Unknown 0-0.2 F Ordering Physician UnknownLaboratory Kjcazca5261-48-82 01:05:00Identifier 15342- 6 Result Time 2019-03-01 01:05:00Unknown Test Item Value Reference Range Comments Unknown (test code = 2744-1) 7.37 Unknown 7.35-7.45 F Ordering Physician UnknownLaboratory Redtlpm9766-40-02 01:05:00Identifier 25573- 6 Result Time 2019-03-01 01:05:00Unknown Test Item Value Reference Range Comments Unknown (test code = 29085-5) 211 mmHg Unknown 80-100 F Ordering Physician UnknownLaboratory Fckjwsl5589-26-04 01:05:00Identifier 92534- 6 Result Time 2019-03-01 01:05:00Unknown Test Item Value Reference Range Comments Unknown (test code = NullTestCode) 51 mmHg Unknown 35-45 F Ordering Physician UnknownLaboratory Xxlrxty7379-85-96 01:05:00Identifier 17348- 6 Result Time 2019-03-01 01:05:00Unknown Test Item Value Reference Range Comments Unknown (test code = 2708-6) 99.9 % Unknown 94.0-98.0 F Ordering Physician UnknownLaboratory Gaubyke5449-52-03 01:05:00Identifier 85888- 6 Result Time 2019-03-01 01:05:00Unknown Test Item Value Reference Range Comments Unknown (test code = 1960-4) 27.4 mmol/L Unknown 19-31 F Ordering Physician UnknownLaboratory Hlbuzoj6250-16-31 01:05:00Identifier 80306- 6 Result Time 2019-03-01 01:05:00Unknown Test Item Value Reference Range Comments Unknown (test code = 1925-7) 3.1 mmol/L Unknown -2.0-2.0 F Ordering Physician UnknownLaboratory Bprnzxg7157-51-33 01:05:00Identifier 32548- 6 Result Time 2019-03-01 01:05:00Unknown Test Item Value Reference Range Comments Unknown (test code = NullTestCode) 80 Unknown Unknown F Ordering Physician UnknownLaboratory Oxqqczc3533-60-46 01:05:00Identifier 97767- 6 Result Time 2019-03-01 01:05:00Unknown Test Item Value Reference Range Comments Unknown (test code = NullTestCode) 500 Unknown Unknown F Ordering Physician UnknownLaboratory Lxdeuej4804-33-21 01:05:00Identifier 83224- 6 Result Time 2019-03-01 01:05:00Unknown Test Item Value Reference Range Comments Unknown (test code = NullTestCode) 15 Unknown Unknown F Ordering Physician UnknownLaboratory Hcivzls5066-03-63 01:05:00Identifier 77043- 6 Result Time 2019-03-01 01:05:00Unknown Test Item Value Reference Range Comments Unknown (test code = NullTestCode) 5 Unknown Unknown F Ordering Physician UnknownLaboratory Wmtlshu7259-22-61 20:56:00Identifier 33331- 6 Result Time 2019-02-28 20:56:00Unknown Test Item Value Reference Range Comments Unknown (test code = 3016-3) 1.25 mcIU/mL Unknown 0.34-5.60 F Ordering Physician UnknownLaboratory Dhfjgeh4806-32-27 20:56:00Identifier 09898- 6 Result Time 2019-02-28 20:56:00Unknown Test Item Value Reference Range Comments Unknown (test code = 2885-2) 7.0 g/dL Unknown 6.4-8.9 F Ordering Physician UnknownLaboratory Ywznmcy1480-28-02 20:56:00Identifier 03910- 6 Result Time 2019-02-28 20:56:00Unknown Test Item Value Reference Range Comments Unknown (test code = 1975-2) 0.50 mg/dL Unknown 0.2-1.0 F Ordering Physician UnknownLaboratory Zuludic3692-03-78 20:56:00Identifier 77951- 6 Result Time 2019-02-28 20:56:00Unknown Test Item Value Reference Range Comments Unknown (test code = NullTestCode) 3.4 g/dL Unknown 2-4 F Ordering Physician UnknownLaboratory Iwveiqi9881-29-42 20:56:00Identifier 67093- 6 Result Time 2019-02-28 20:56:00Unknown Test Item Value Reference Range Comments Unknown (test code = 1988-5) 64.61 mg/L Unknown 0-8.00 F Ordering Physician UnknownLaboratory Oxerajw6701-04-80 20:56:00Identifier 17121- 6 Result Time 2019-02-28 20:56:00Unknown Test Item Value Reference Range Comments Unknown (test code = 1920-8) 16 U/L Unknown 13-39 F Ordering Physician UnknownLaboratory Lzkqgby5102-95-51 20:56:00Identifier 48294- 6 Result Time 2019-02-28 20:56:00Unknown Test Item Value Reference Range Comments Unknown (test code = 6768-6) 60 U/L Unknown 34-104 F Ordering Physician UnknownLaboratory Btcbyfg9968-93-60 20:56:00Identifier 87712- 6 Result Time 2019-02-28 20:56:00Unknown Test Item Value Reference Range Comments Unknown (test code = 1759-0) 1.1 Unknown 1-3 F Ordering Physician UnknownLaboratory Ahxwqtf4490-53-20 20:56:00Identifier 03116- 6 Result Time 2019-02-28 20:56:00Unknown Test Item Value Reference Range Comments Unknown (test code = 31840-5) 3.6 g/dL Unknown 3.2-5.2 F Ordering Physician UnknownLaboratory Tctdcxx4610-06-03 20:56:00Identifier 62178- 6 Result Time 2019-02-28 20:56:00Unknown Test Item Value Reference Range Comments Unknown (test code = 1742-6) 11 U/L Unknown 7-52 F Ordering Physician UnknownLaboratory Fnybtom7121-12-01 20:56:00Identifier 62430- 6 Result Time 2019-02-28 20:56:00Unknown Test Item Value Reference Range Comments Unknown (test code = 98715-7) 224 pg/mL Unknown Unknown F Ordering Physician UnknownLaboratory Owjxygy8022-61-58 20:56:00Identifier 78193- 6 Result Time 2019-02-28 20:56:00Unknown Test Item Value Reference Range Comments Unknown (test code = 2524-7) 1.4 mmol/L Unknown 0.5-2.0 F Ordering Physician UnknownLaboratory Qkcpnvb6378-47-60 20:56:00Identifier 55943- 6 Result Time 2019-02-28 20:56:00Unknown Test Item Value Reference Range Comments Unknown (test code = 41696-1) 1.12 Unknown 0.82-1.09 F Ordering Physician UnknownLaboratory Endpmun8633-84-93 20:56:00Identifier 67269- 6 Result Time 2019-02-28 20:56:00Unknown Test Item Value Reference Range Comments Unknown (test code = 72693-3) 36.2 seconds Unknown 26.0-38.0 F Ordering Physician UnknownLaboratory Ivqjezt7237-40-66 20:49:00Identifier 09459- 6 Result Time 2019-02-28 20:49:00Unknown Test Item Value Reference Range Comments Unknown (test code = NullTestCode) 6.0 Unknown 5-9 F Ordering Physician UnknownLaboratory Mofhlsk5003-80-81 20:49:00Identifier 08595- 6 Result Time 2019-02-28 20:49:00Unknown Test Item Value Reference Range Comments Unknown (test code = 74152-0) 1.008 Unknown 1.010-1.030 F Ordering Physician UnknownLaboratory Xtuhziu7133-26-73 17:41:00Identifier 56475- 6 Result Time 2019-02-28 17:41:00Unknown Test Item Value Reference Range Comments Unknown (test code = 2746-6) 7.38 Unknown 7.32-7.43 F Ordering Physician UnknownLaboratory Tffbbtl7603-03-71 17:41:00Identifier 65452- 6 Result Time 2019-02-28 17:41:00Unknown Test Item Value Reference Range Comments Unknown (test code = 2705-2) 51.0 mmHg Unknown 35-45 F Ordering Physician UnknownLaboratory Wqyulpw4585-42-37 17:41:00Identifier 07173- 6 Result Time 2019-02-28 17:41:00Unknown Test Item Value Reference Range Comments Unknown (test code = 2021-4) 61 mmHg Unknown 41-51 F Ordering Physician UnknownLaboratory Qcpmocd8044-23-37 17:41:00Identifier 36638- 6 Result Time 2019-02-28 17:41:00Unknown Test Item Value Reference Range Comments Unknown (test code = 96886-0) 86.2 % Unknown 70-80 F Ordering Physician UnknownLaboratory Eoukmpd7366-13-16 17:41:00Identifier 24343- 6 Result Time 2019-02-28 17:41:00Unknown Test Item Value Reference Range Comments Unknown (test code = NullTestCode) 31.3 mmol/L Unknown 24-28 F Ordering Physician UnknownLaboratory Pmrsczz3112-66-61 17:41:00Identifier 78988- 6 Result Time 2019-02-28 17:41:00Unknown Test Item Value Reference Range Comments Unknown (test code = NullTestCode) 8.7 mmol/L Unknown 0.0-4.0 F Ordering Physician UnknownLaboratory Puyjwbm0688-31-65 08:40:00Identifier 01475- 6 Result Time 2019-02-10 08:40:00Unknown Test Item Value Reference Range Comments Unknown (test code = 4537-7) 68 mm/Hr Unknown 0-19 F Ordering Physician Unknown
--- OUTSIDE RECORDS SUMMARY | 2019-10-15 10:52 | XMS REPORT ---
[...] Result Comments Laboratory Studies 2019-03-08 12:13:00 Identifier [id number] Result Time Unknown 2019-03-08 12:13:00 Test Item Value Reference Range Comments Unknown (test code = 2339-0) 312 mg/dL Unknown 70-100 F Ordering Physician UnknownLaboratory Pirbpif8870-29-25 06:25:00Identifier 67704- 6 Result Time 2019-03-08 06:25:00Unknown Test Item Value Reference Range Comments Unknown (test code = 2951-2) 136 mmol/L Unknown 135-145 F Ordering Physician UnknownLaboratory Vfshekv0324-84-90 06:25:00Identifier 13716- 6 Result Time 2019-03-08 06:25:00Unknown Test Item Value Reference Range Comments Unknown (test code = 2823-3) 3.7 mmol/L Unknown 3.5-5.0 F Ordering Physician UnknownLaboratory Lptgxjx4863-36-38 06:25:00Identifier 75287- 6 Result Time 2019-03-08 06:25:00Unknown Test Item Value Reference Range Comments Unknown (test code = 2345-7) 175 mg/dL Unknown 70-100 F Ordering Physician UnknownLaboratory Gptziqz7366-27-48 06:25:00Identifier 89181- 6 Result Time 2019-03-08 06:25:00Unknown Test Item Value Reference Range Comments Unknown (test code = 67377-0) 49.4 Unknown Unknown F Ordering Physician UnknownLaboratory Mafzihu6881-10-59 06:25:00Identifier 07095- 6 Result Time 2019-03-08 06:25:00Unknown Test Item Value Reference Range Comments Unknown (test code = NullTestCode) 59.8 Unknown Unknown F Ordering Physician UnknownLaboratory Izvulss7810-67-01 06:25:00Identifier 40589- 6 Result Time 2019-03-08 06:25:00Unknown Test Item Value Reference Range Comments Unknown (test code = 2160-0) 1.42 mg/dL Unknown 0.67-1.17 F Ordering Physician UnknownLaboratory Xpyhcob8511-44-40 06:25:00Identifier 73511- 6 Result Time 2019-03-08 06:25:00Unknown Test Item Value Reference Range Comments Unknown (test code = 2075-0) 97 mmol/L Unknown 101-111 F Ordering Physician UnknownLaboratory Wxifhoz6785-85-33 06:25:00Identifier 35198- 6 Result Time 2019-03-08 06:25:00Unknown Test Item Value Reference Range Comments Unknown (test code = 2028-9) 33 mmol/L Unknown 22-32 F Ordering Physician UnknownLaboratory Wgfbdmb4368-54-43 06:25:00Identifier 95561- 6 Result Time 2019-03-08 06:25:00Unknown Test Item Value Reference Range Comments Unknown (test code = 14181-1) 9.6 mg/dL Unknown 8.6-10.3 F Ordering Physician UnknownLaboratory Xdvbrev1102-76-22 06:25:00Identifier 41456- 6 Result Time 2019-03-08 06:25:00Unknown Test Item Value Reference Range Comments Unknown (test code = 3094-0) 28 mg/dL Unknown 6-24 F Ordering Physician UnknownLaboratory Vmahlex3765-35-11 06:25:00Identifier 51068- 6 Result Time 2019-03-08 06:25:00Unknown Test Item Value Reference Range Comments Unknown (test code = 3097-3) 19.7 Unknown 8-20 F Ordering Physician UnknownLaboratory Trmlhjl3470-57-72 06:25:00Identifier 55150- 6 Result Time 2019-03-08 06:25:00Unknown Test Item Value Reference Range Comments Unknown (test code = 72446-9) 6 mmol/L Unknown 2-11 F Ordering Physician UnknownLaboratory Devnlgi1321-72-12 06:25:00Identifier 57812- 6 Result Time 2019-03-08 06:25:00Unknown Test Item Value Reference Range Comments Unknown (test code = 97657-4) 7.7 10^3/uL Unknown 3.5-10.8 F Ordering Physician UnknownLaboratory Ixkkcqn0718-15-00 06:25:00Identifier 91590- 6 Result Time 2019-03-08 06:25:00Unknown Test Item Value Reference Range Comments Unknown (test code = 788-0) 15 % Unknown 10-15 F Ordering Physician UnknownLaboratory Ggwfjji2800-63-38 06:25:00Identifier 38558- 6 Result Time 2019-03-08 06:25:00Unknown Test Item Value Reference Range Comments Unknown (test code = 789-8) 3.94 10^6 /uL Unknown 4.18-5.48 F Ordering Physician UnknownLaboratory Qbfueoh6091-38-81 06:25:00Identifier 32111- 6 Result Time 2019-03-08 06:25:00Unknown Test Item Value Reference Range Comments Unknown (test code = 777-3) 164 10^3/uL Unknown 150-450 F Ordering Physician UnknownLaboratory Ojxqieu8101-21-10 06:25:00Identifier 59384- 6 Result Time 2019-03-08 06:25:00Unknown Test Item Value Reference Range Comments Unknown (test code = 92265-7) 7.8 fL Unknown 7.4-10.4 F Ordering Physician UnknownLaboratory Mxnzjdi1192-56-64 06:25:00Identifier 69738- 6 Result Time 2019-03-08 06:25:00Unknown Test Item Value Reference Range Comments Unknown (test code = 787-2) 81 fL Unknown 80-94 F Ordering Physician UnknownLaboratory Txowunc4348-18-88 06:25:00Identifier 20163- 6 Result Time 2019-03-08 06:25:00Unknown Test Item Value Reference Range Comments Unknown (test code = 786-4) 34 g/dL Unknown 31-36 F Ordering Physician UnknownLaboratory Htdchyx0348-39-05 06:25:00Identifier 93875- 6 Result Time 2019-03-08 06:25:00Unknown Test Item Value Reference Range Comments Unknown (test code = 785-6) 27 pg Unknown 27-31 F Ordering Physician UnknownLaboratory Swcyrwx6781-89-80 06:25:00Identifier 36878- 6 Result Time 2019-03-08 06:25:00Unknown Test Item Value Reference Range Comments Unknown (test code = 718-7) 10.8 g/dL Unknown 14.0-18.0 F Ordering Physician UnknownLaboratory Edwamxn5312-24-23 06:25:00Identifier 60178- 6 Result Time 2019-03-08 06:25:00Unknown Test Item Value Reference Range Comments Unknown (test code = 4544-3) 32 % Unknown 42-52 F Ordering Physician UnknownLaboratory Yxnuiqy0601-86-46 06:45:00Identifier 63106- 6 Result Time 2019-03-06 06:45:00Unknown Test Item Value Reference Range Comments Unknown (test code = 2777-1) 3.3 mg/dL Unknown 2.5-5.0 F Ordering Physician UnknownLaboratory Kbcowoa8249-08-89 06:45:00Identifier 19855- 6 Result Time 2019-03-06 06:45:00Unknown Test Item Value Reference Range Comments Unknown (test code = 82543-8) 2.1 mg/dL Unknown 1.9-2.7 F Ordering Physician UnknownLaboratory Jruteeu0527-83-31 13:59:00Identifier 60612- 6 Result Time 2019-03-04 13:59:00Unknown Test Item Value Reference Range Comments Unknown (test code = NullTestCode) Unknown Unknown F Ordering Physician UnknownLaboratory Lqgxckn2247-12-99 13:59:00Identifier 93957- 6 Result Time 2019-03-04 13:59:00Unknown Test Item Value Reference Range Comments Unknown (test code = 3034-6) 203 mg/dL Unknown 203-362 F Ordering Physician UnknownLaboratory Zgsopke5332-99-86 13:59:00Identifier 20225- 6 Result Time 2019-03-04 13:59:00Unknown Test Item Value Reference Range Comments Unknown (test code = 2500-7) 284 mcg/dL Unknown 250-450 F Ordering Physician UnknownLaboratory Mnizsba7728-44-80 13:59:00Identifier 52298- 6 Result Time 2019-03-04 13:59:00Unknown Test Item Value Reference Range Comments Unknown (test code = NullTestCode) 13 % Unknown 15-55 F Ordering Physician UnknownLaboratory Ejoorbx3777-28-13 13:59:00Identifier 50004- 6 Result Time 2019-03-04 13:59:00Unknown Test Item Value Reference Range Comments Unknown (test code = 2498-4) 36 ug/dL Unknown 50-212 F Ordering Physician UnknownLaboratory Mpqmbix5127-31-51 17:35:00Identifier 71343- 6 Result Time 2019-03-01 17:35:00Unknown Test Item Value Reference Range Comments Unknown (test code = 2132-9) 866 pg/mL Unknown 180-914 F Ordering Physician UnknownLaboratory Xhpumsj7343-39-33 17:35:00Identifier 07158- 6 Result Time 2019-03-01 17:35:00Unknown Test Item Value Reference Range Comments Unknown (test code = 3053-6) 51 ng/dL Unknown 87-178 F Ordering Physician UnknownLaboratory Ffubmsv1337-54-55 17:35:00Identifier 36954- 6 Result Time 2019-03-01 17:35:00Unknown Test Item Value Reference Range Comments Unknown (test code = 3051-0) 3.10 pg/mL Unknown 2.5-3.9 F Ordering Physician UnknownLaboratory Fxmwavd3816-66-54 17:35:00Identifier 88700- 6 Result Time 2019-03-01 17:35:00Unknown Test Item Value Reference Range Comments Unknown (test code = 3024-7) 0.86 ng/dL Unknown 0.61-1.12 F Ordering Physician UnknownLaboratory Beyjoen2548-36-76 17:35:00Identifier 31050- 6 Result Time 2019-03-01 17:35:00Unknown Test Item Value Reference Range Comments Unknown (test code = 2157-6) 52 U/L Unknown 10-223 F Ordering Physician UnknownLaboratory Fbwvuqm2015-75-51 17:35:00Identifier 54180- 6 Result Time 2019-03-01 17:35:00Unknown Test Item Value Reference Range Comments Unknown (test code = 68393-8) 41 mcmol/L Unknown 16-53 F Ordering Physician UnknownLaboratory Cnbehtp4108-16-24 16:21:00Identifier 01553- 6 Result Time 2019-03-01 16:21:00Unknown Test Item Value Reference Range Comments Unknown (test code = 91469-4) 0.10 ng/mL Unknown Unknown F Ordering Physician UnknownLaboratory Xopggvi4913-10-34 05:20:00Identifier 81322- 6 Result Time 2019-03-01 05:20:00Unknown Test Item Value Reference Range Comments Unknown (test code = 93792-1) 0.0 Unknown Unknown F Ordering Physician UnknownLaboratory Ncuhhge5206-92-28 05:20:00Identifier 54312- 6 Result Time 2019-03-01 05:20:00Unknown Test Item Value Reference Range Comments Unknown (test code = 771-6) 0.0 10^3/ul Unknown Unknown F Ordering Physician UnknownLaboratory Nagqpuz1552-64-03 05:20:00Identifier 28551- 6 Result Time 2019-03-01 05:20:00Unknown Test Item Value Reference Range Comments Unknown (test code = 770-8) 92.0 % Unknown Unknown F Ordering Physician UnknownLaboratory Yuscyfc0166-87-82 05:20:00Identifier 65764- 6 Result Time 2019-03-01 05:20:00Unknown Test Item Value Reference Range Comments Unknown (test code = 5905-5) 1.8 % Unknown Unknown F Ordering Physician UnknownLaboratory Opjuftv9103-79-11 05:20:00Identifier 59970- 6 Result Time 2019-03-01 05:20:00Unknown Test Item Value Reference Range Comments Unknown (test code = 736-9) 6.0 % Unknown Unknown F Ordering Physician UnknownLaboratory Slfzups0771-82-65 05:20:00Identifier 67711- 6 Result Time 2019-03-01 05:20:00Unknown Test Item Value Reference Range Comments Unknown (test code = 713-8) 0.0 % Unknown Unknown F Ordering Physician UnknownLaboratory Fjyzcof7145-30-87 05:20:00Identifier 91677- 6 Result Time 2019-03-01 05:20:00Unknown Test Item Value Reference Range Comments Unknown (test code = 706-2) 0.2 % Unknown Unknown F Ordering Physician UnknownLaboratory Pjrpziu3478-09-99 05:20:00Identifier 06821- 6 Result Time 2019-03-01 05:20:00Unknown Test Item Value Reference Range Comments Unknown (test code = WZM4864) 7.0 10^3/ul Unknown 1.5-7.7 F Ordering Physician UnknownLaboratory Qoeraur4645-80-11 05:20:00Identifier 88880- 6 Result Time 2019-03-01 05:20:00Unknown Test Item Value Reference Range Comments Unknown (test code = 742-7) 0.1 10^3/ul Unknown 0-0.8 F Ordering Physician UnknownLaboratory Iaihnpl2424-48-47 05:20:00Identifier 95315- 6 Result Time 2019-03-01 05:20:00Unknown Test Item Value Reference Range Comments Unknown (test code = 731-0) 0.5 10^3/ul Unknown 1.0-4.8 F Ordering Physician UnknownLaboratory Icgirmx5995-21-83 05:20:00Identifier 11132- 6 Result Time 2019-03-01 05:20:00Unknown Test Item Value Reference Range Comments Unknown (test code = 711-2) 0.0 10^3/ul Unknown 0-0.6 F Ordering Physician UnknownLaboratory Qdmsdkv6169-32-41 05:20:00Identifier 75269- 6 Result Time 2019-03-01 05:20:00Unknown Test Item Value Reference Range Comments Unknown (test code = 704-7) 0.0 10^3/ul Unknown 0-0.2 F Ordering Physician UnknownLaboratory Hiqrgci8575-25-93 01:05:00Identifier 56381- 6 Result Time 2019-03-01 01:05:00Unknown Test Item Value Reference Range Comments Unknown (test code = 2744-1) 7.37 Unknown 7.35-7.45 F Ordering Physician UnknownLaboratory Dlgxzqx7088-99-87 01:05:00Identifier 69160- 6 Result Time 2019-03-01 01:05:00Unknown Test Item Value Reference Range Comments Unknown (test code = 80528-8) 211 mmHg Unknown 80-100 F Ordering Physician UnknownLaboratory Cgrnemx1994-05-55 01:05:00Identifier 90824- 6 Result Time 2019-03-01 01:05:00Unknown Test Item Value Reference Range Comments Unknown (test code = NullTestCode) 51 mmHg Unknown 35-45 F Ordering Physician UnknownLaboratory Faanvjo2591-44-15 01:05:00Identifier 81313- 6 Result Time 2019-03-01 01:05:00Unknown Test Item Value Reference Range Comments Unknown (test code = 2708-6) 99.9 % Unknown 94.0-98.0 F Ordering Physician UnknownLaboratory Tedjvsz2354-30-25 01:05:00Identifier 50274- 6 Result Time 2019-03-01 01:05:00Unknown Test Item Value Reference Range Comments Unknown (test code = 1960-4) 27.4 mmol/L Unknown 19-31 F Ordering Physician UnknownLaboratory Hgjeplm1747-46-51 01:05:00Identifier 46657- 6 Result Time 2019-03-01 01:05:00Unknown Test Item Value Reference Range Comments Unknown (test code = 1925-7) 3.1 mmol/L Unknown -2.0-2.0 F Ordering Physician UnknownLaboratory Jenlmbm1705-57-59 01:05:00Identifier 98747- 6 Result Time 2019-03-01 01:05:00Unknown Test Item Value Reference Range Comments Unknown (test code = NullTestCode) 80 Unknown Unknown F Ordering Physician UnknownLaboratory Gfqkfmr9270-21-74 01:05:00Identifier 04448- 6 Result Time 2019-03-01 01:05:00Unknown Test Item Value Reference Range Comments Unknown (test code = NullTestCode) 500 Unknown Unknown F Ordering Physician UnknownLaboratory Dwxvant8237-96-02 01:05:00Identifier 88383- 6 Result Time 2019-03-01 01:05:00Unknown Test Item Value Reference Range Comments Unknown (test code = NullTestCode) 15 Unknown Unknown F Ordering Physician UnknownLaboratory Atrysmh1668-32-83 01:05:00Identifier 98945- 6 Result Time 2019-03-01 01:05:00Unknown Test Item Value Reference Range Comments Unknown (test code = NullTestCode) 5 Unknown Unknown F Ordering Physician UnknownLaboratory Donnlbv9984-40-88 20:56:00Identifier 57796- 6 Result Time 2019-02-28 20:56:00Unknown Test Item Value Reference Range Comments Unknown (test code = 3016-3) 1.25 mcIU/mL Unknown 0.34-5.60 F Ordering Physician UnknownLaboratory Dsmupet5621-99-46 20:56:00Identifier 70793- 6 Result Time 2019-02-28 20:56:00Unknown Test Item Value Reference Range Comments Unknown (test code = 2885-2) 7.0 g/dL Unknown 6.4-8.9 F Ordering Physician UnknownLaboratory Jbdtqct5090-73-41 20:56:00Identifier 46088- 6 Result Time 2019-02-28 20:56:00Unknown Test Item Value Reference Range Comments Unknown (test code = 1975-2) 0.50 mg/dL Unknown 0.2-1.0 F Ordering Physician UnknownLaboratory Ocfbkqg5474-50-43 20:56:00Identifier 54598- 6 Result Time 2019-02-28 20:56:00Unknown Test Item Value Reference Range Comments Unknown (test code = NullTestCode) 3.4 g/dL Unknown 2-4 F Ordering Physician UnknownLaboratory Zjcphoy9766-81-17 20:56:00Identifier 54020- 6 Result Time 2019-02-28 20:56:00Unknown Test Item Value Reference Range Comments Unknown (test code = 1988-5) 64.61 mg/L Unknown 0-8.00 F Ordering Physician UnknownLaboratory Plobfjk5325-61-22 20:56:00Identifier 47268- 6 Result Time 2019-02-28 20:56:00Unknown Test Item Value Reference Range Comments Unknown (test code = 1920-8) 16 U/L Unknown 13-39 F Ordering Physician UnknownLaboratory Updqrim0736-09-50 20:56:00Identifier 14523- 6 Result Time 2019-02-28 20:56:00Unknown Test Item Value Reference Range Comments Unknown (test code = 6768-6) 60 U/L Unknown 34-104 F Ordering Physician UnknownLaboratory Fvdcpzx9718-51-91 20:56:00Identifier 97441- 6 Result Time 2019-02-28 20:56:00Unknown Test Item Value Reference Range Comments Unknown (test code = 1759-0) 1.1 Unknown 1-3 F Ordering Physician UnknownLaboratory Grghnav8664-28-56 20:56:00Identifier 06526- 6 Result Time 2019-02-28 20:56:00Unknown Test Item Value Reference Range Comments Unknown (test code = 86333-3) 3.6 g/dL Unknown 3.2-5.2 F Ordering Physician UnknownLaboratory Ngtmcog7515-14-79 20:56:00Identifier 81293- 6 Result Time 2019-02-28 20:56:00Unknown Test Item Value Reference Range Comments Unknown (test code = 1742-6) 11 U/L Unknown 7-52 F Ordering Physician UnknownLaboratory Wtkxotw7676-44-62 20:56:00Identifier 51378- 6 Result Time 2019-02-28 20:56:00Unknown Test Item Value Reference Range Comments Unknown (test code = 68197-3) 224 pg/mL Unknown Unknown F Ordering Physician UnknownLaboratory Glrpqdn7884-04-25 20:56:00Identifier 25518- 6 Result Time 2019-02-28 20:56:00Unknown Test Item Value Reference Range Comments Unknown (test code = 2524-7) 1.4 mmol/L Unknown 0.5-2.0 F Ordering Physician UnknownLaboratory Toyjchl7593-79-98 20:56:00Identifier 75391- 6 Result Time 2019-02-28 20:56:00Unknown Test Item Value Reference Range Comments Unknown (test code = 72215-9) 1.12 Unknown 0.82-1.09 F Ordering Physician UnknownLaboratory Egzpjnb0475-46-58 20:56:00Identifier 75561- 6 Result Time 2019-02-28 20:56:00Unknown Test Item Value Reference Range Comments Unknown (test code = 05402-9) 36.2 seconds Unknown 26.0-38.0 F Ordering Physician UnknownLaboratory Ltshner3319-95-54 20:49:00Identifier 59570- 6 Result Time 2019-02-28 20:49:00Unknown Test Item Value Reference Range Comments Unknown (test code = NullTestCode) 6.0 Unknown 5-9 F Ordering Physician UnknownLaboratory Feoewis0758-53-06 20:49:00Identifier 82926- 6 Result Time 2019-02-28 20:49:00Unknown Test Item Value Reference Range Comments Unknown (test code = 66905-0) 1.008 Unknown 1.010-1.030 F Ordering Physician UnknownLaboratory Zszzxkw0384-43-46 17:41:00Identifier 33561- 6 Result Time 2019-02-28 17:41:00Unknown Test Item Value Reference Range Comments Unknown (test code = 2746-6) 7.38 Unknown 7.32-7.43 F Ordering Physician UnknownLaboratory Cbyrtin4374-73-64 17:41:00Identifier 74584- 6 Result Time 2019-02-28 17:41:00Unknown Test Item Value Reference Range Comments Unknown (test code = 2705-2) 51.0 mmHg Unknown 35-45 F Ordering Physician UnknownLaboratory Kquaeue8453-37-80 17:41:00Identifier 19915- 6 Result Time 2019-02-28 17:41:00Unknown Test Item Value Reference Range Comments Unknown (test code = 2021-4) 61 mmHg Unknown 41-51 F Ordering Physician UnknownLaboratory Aclxvot9695-32-70 17:41:00Identifier 34648- 6 Result Time 2019-02-28 17:41:00Unknown Test Item Value Reference Range Comments Unknown (test code = 73141-1) 86.2 % Unknown 70-80 F Ordering Physician UnknownLaboratory Mdlbuak1489-77-60 17:41:00Identifier 02539- 6 Result Time 2019-02-28 17:41:00Unknown Test Item Value Reference Range Comments Unknown (test code = NullTestCode) 31.3 mmol/L Unknown 24-28 F Ordering Physician UnknownLaboratory Mcdaibk1567-16-95 17:41:00Identifier 32536- 6 Result Time 2019-02-28 17:41:00Unknown Test Item Value Reference Range Comments Unknown (test code = NullTestCode) 8.7 mmol/L Unknown 0.0-4.0 F Ordering Physician UnknownLaboratory Whhleto6848-07-06 08:40:00Identifier 64321- 6 Result Time 2019-02-10 08:40:00Unknown Test Item Value Reference Range Comments Unknown (test code = 4537-7) 68 mm/Hr Unknown 0-19 F Ordering Physician Unknown
--- OUTSIDE RECORDS SUMMARY | 2019-10-15 10:52 | XMS REPORT ---
:1950 Author Organization [facility] Care Team Providers Name Role Phone Unavailable [...] Result Comments Laboratory Studies 2019-03-08 12:13:00 Identifier [id number] Result Time Unknown 2019-03-08 12:13:00 Test Item Value Reference Range Comments Unknown (test code = 2339-0) 312 mg/dL Unknown 70-100 F Ordering Physician UnknownLaboratory Tkgajdn5175-13-54 06:25:00Identifier 65081- 6 Result Time 2019-03-08 06:25:00Unknown Test Item Value Reference Range Comments Unknown (test code = 2951-2) 136 mmol/L Unknown 135-145 F Ordering Physician UnknownLaboratory Dnjhjox2796-66-99 06:25:00Identifier 39512- 6 Result Time 2019-03-08 06:25:00Unknown Test Item Value Reference Range Comments Unknown (test code = 2823-3) 3.7 mmol/L Unknown 3.5-5.0 F Ordering Physician UnknownLaboratory Cufbsrs4776-38-67 06:25:00Identifier 86912- 6 Result Time 2019-03-08 06:25:00Unknown Test Item Value Reference Range Comments Unknown (test code = 2345-7) 175 mg/dL Unknown 70-100 F Ordering Physician UnknownLaboratory Msncsge9497-33-52 06:25:00Identifier 51032- 6 Result Time 2019-03-08 06:25:00Unknown Test Item Value Reference Range Comments Unknown (test code = 26067-4) 49.4 Unknown Unknown F Ordering Physician UnknownLaboratory Kyfarqg0356-25-62 06:25:00Identifier 43208- 6 Result Time 2019-03-08 06:25:00Unknown Test Item Value Reference Range Comments Unknown (test code = NullTestCode) 59.8 Unknown Unknown F Ordering Physician UnknownLaboratory Znjhzrv0930-80-61 06:25:00Identifier 44503- 6 Result Time 2019-03-08 06:25:00Unknown Test Item Value Reference Range Comments Unknown (test code = 2160-0) 1.42 mg/dL Unknown 0.67-1.17 F Ordering Physician UnknownLaboratory Blppjmu6852-13-78 06:25:00Identifier 72180- 6 Result Time 2019-03-08 06:25:00Unknown Test Item Value Reference Range Comments Unknown (test code = 2075-0) 97 mmol/L Unknown 101-111 F Ordering Physician UnknownLaboratory Bjsphfl8760-27-13 06:25:00Identifier 40697- 6 Result Time 2019-03-08 06:25:00Unknown Test Item Value Reference Range Comments Unknown (test code = 2028-9) 33 mmol/L Unknown 22-32 F Ordering Physician UnknownLaboratory Oiqpzar4190-03-68 06:25:00Identifier 06132- 6 Result Time 2019-03-08 06:25:00Unknown Test Item Value Reference Range Comments Unknown (test code = 80035-3) 9.6 mg/dL Unknown 8.6-10.3 F Ordering Physician UnknownLaboratory Rlhaecr1486-33-88 06:25:00Identifier 24061- 6 Result Time 2019-03-08 06:25:00Unknown Test Item Value Reference Range Comments Unknown (test code = 3094-0) 28 mg/dL Unknown 6-24 F Ordering Physician UnknownLaboratory Jbeiljh8147-66-59 06:25:00Identifier 83509- 6 Result Time 2019-03-08 06:25:00Unknown Test Item Value Reference Range Comments Unknown (test code = 3097-3) 19.7 Unknown 8-20 F Ordering Physician UnknownLaboratory Eewheaa2425-84-95 06:25:00Identifier 88082- 6 Result Time 2019-03-08 06:25:00Unknown Test Item Value Reference Range Comments Unknown (test code = 61303-2) 6 mmol/L Unknown 2-11 F Ordering Physician UnknownLaboratory Bgtmtor7045-57-40 06:25:00Identifier 56585- 6 Result Time 2019-03-08 06:25:00Unknown Test Item Value Reference Range Comments Unknown (test code = 17436-1) 7.7 10^3/uL Unknown 3.5-10.8 F Ordering Physician UnknownLaboratory Wwntpxt3764-95-74 06:25:00Identifier 56745- 6 Result Time 2019-03-08 06:25:00Unknown Test Item Value Reference Range Comments Unknown (test code = 788-0) 15 % Unknown 10-15 F Ordering Physician UnknownLaboratory Vjrglis4681-71-34 06:25:00Identifier 58677- 6 Result Time 2019-03-08 06:25:00Unknown Test Item Value Reference Range Comments Unknown (test code = 789-8) 3.94 10^6 /uL Unknown 4.18-5.48 F Ordering Physician UnknownLaboratory Upxiopo1891-88-96 06:25:00Identifier 76492- 6 Result Time 2019-03-08 06:25:00Unknown Test Item Value Reference Range Comments Unknown (test code = 777-3) 164 10^3/uL Unknown 150-450 F Ordering Physician UnknownLaboratory Rytogho9534-14-08 06:25:00Identifier 44493- 6 Result Time 2019-03-08 06:25:00Unknown Test Item Value Reference Range Comments Unknown (test code = 70249-6) 7.8 fL Unknown 7.4-10.4 F Ordering Physician UnknownLaboratory Jkwsawl8595-74-61 06:25:00Identifier 77652- 6 Result Time 2019-03-08 06:25:00Unknown Test Item Value Reference Range Comments Unknown (test code = 787-2) 81 fL Unknown 80-94 F Ordering Physician UnknownLaboratory Wianigw0788-98-29 06:25:00Identifier 50775- 6 Result Time 2019-03-08 06:25:00Unknown Test Item Value Reference Range Comments Unknown (test code = 786-4) 34 g/dL Unknown 31-36 F Ordering Physician UnknownLaboratory Tmnnujl4729-45-53 06:25:00Identifier 21396- 6 Result Time 2019-03-08 06:25:00Unknown Test Item Value Reference Range Comments Unknown (test code = 785-6) 27 pg Unknown 27-31 F Ordering Physician UnknownLaboratory Pckwelz4694-86-69 06:25:00Identifier 36958- 6 Result Time 2019-03-08 06:25:00Unknown Test Item Value Reference Range Comments Unknown (test code = 718-7) 10.8 g/dL Unknown 14.0-18.0 F Ordering Physician UnknownLaboratory Eonluyp6646-66-39 06:25:00Identifier 27418- 6 Result Time 2019-03-08 06:25:00Unknown Test Item Value Reference Range Comments Unknown (test code = 4544-3) 32 % Unknown 42-52 F Ordering Physician UnknownLaboratory Qzqrcxy5499-18-64 06:45:00Identifier 58159- 6 Result Time 2019-03-06 06:45:00Unknown Test Item Value Reference Range Comments Unknown (test code = 2777-1) 3.3 mg/dL Unknown 2.5-5.0 F Ordering Physician UnknownLaboratory Yjggacq4174-55-69 06:45:00Identifier 51953- 6 Result Time 2019-03-06 06:45:00Unknown Test Item Value Reference Range Comments Unknown (test code = 67510-3) 2.1 mg/dL Unknown 1.9-2.7 F Ordering Physician UnknownLaboratory Pbiywnk5648-83-86 13:59:00Identifier 77160- 6 Result Time 2019-03-04 13:59:00Unknown Test Item Value Reference Range Comments Unknown (test code = NullTestCode) Unknown Unknown F Ordering Physician UnknownLaboratory Uxivovy4974-86-69 13:59:00Identifier 13988- 6 Result Time 2019-03-04 13:59:00Unknown Test Item Value Reference Range Comments Unknown (test code = 3034-6) 203 mg/dL Unknown 203-362 F Ordering Physician UnknownLaboratory Zasjuya4120-34-57 13:59:00Identifier 14421- 6 Result Time 2019-03-04 13:59:00Unknown Test Item Value Reference Range Comments Unknown (test code = 2500-7) 284 mcg/dL Unknown 250-450 F Ordering Physician UnknownLaboratory Ncryhmz5960-39-31 13:59:00Identifier 47352- 6 Result Time 2019-03-04 13:59:00Unknown Test Item Value Reference Range Comments Unknown (test code = NullTestCode) 13 % Unknown 15-55 F Ordering Physician UnknownLaboratory Pnbettz5583-84-80 13:59:00Identifier 50284- 6 Result Time 2019-03-04 13:59:00Unknown Test Item Value Reference Range Comments Unknown (test code = 2498-4) 36 ug/dL Unknown 50-212 F Ordering Physician UnknownLaboratory Onvfmvp3367-26-93 17:35:00Identifier 42790- 6 Result Time 2019-03-01 17:35:00Unknown Test Item Value Reference Range Comments Unknown (test code = 2132-9) 866 pg/mL Unknown 180-914 F Ordering Physician UnknownLaboratory Epzbkcp0680-34-77 17:35:00Identifier 95493- 6 Result Time 2019-03-01 17:35:00Unknown Test Item Value Reference Range Comments Unknown (test code = 3053-6) 51 ng/dL Unknown 87-178 F Ordering Physician UnknownLaboratory Sasczwy6705-53-95 17:35:00Identifier 46177- 6 Result Time 2019-03-01 17:35:00Unknown Test Item Value Reference Range Comments Unknown (test code = 3051-0) 3.10 pg/mL Unknown 2.5-3.9 F Ordering Physician UnknownLaboratory Foueetn8397-40-49 17:35:00Identifier 80380- 6 Result Time 2019-03-01 17:35:00Unknown Test Item Value Reference Range Comments Unknown (test code = 3024-7) 0.86 ng/dL Unknown 0.61-1.12 F Ordering Physician UnknownLaboratory Fozmjkg1439-90-70 17:35:00Identifier 00696- 6 Result Time 2019-03-01 17:35:00Unknown Test Item Value Reference Range Comments Unknown (test code = 2157-6) 52 U/L Unknown 10-223 F Ordering Physician UnknownLaboratory Qqzrexd7166-01-94 17:35:00Identifier 72078- 6 Result Time 2019-03-01 17:35:00Unknown Test Item Value Reference Range Comments Unknown (test code = 80833-2) 41 mcmol/L Unknown 16-53 F Ordering Physician UnknownLaboratory Qfiubyq6807-22-65 16:21:00Identifier 86464- 6 Result Time 2019-03-01 16:21:00Unknown Test Item Value Reference Range Comments Unknown (test code = 08750-0) 0.10 ng/mL Unknown Unknown F Ordering Physician UnknownLaboratory Kqvuqcd3547-46-02 05:20:00Identifier 37967- 6 Result Time 2019-03-01 05:20:00Unknown Test Item Value Reference Range Comments Unknown (test code = 82008-8) 0.0 Unknown Unknown F Ordering Physician UnknownLaboratory Rsgdxem7919-15-75 05:20:00Identifier 07167- 6 Result Time 2019-03-01 05:20:00Unknown Test Item Value Reference Range Comments Unknown (test code = 771-6) 0.0 10^3/ul Unknown Unknown F Ordering Physician UnknownLaboratory Gksfvfk1796-82-57 05:20:00Identifier 84000- 6 Result Time 2019-03-01 05:20:00Unknown Test Item Value Reference Range Comments Unknown (test code = 770-8) 92.0 % Unknown Unknown F Ordering Physician UnknownLaboratory Kzyuwni8450-30-45 05:20:00Identifier 25892- 6 Result Time 2019-03-01 05:20:00Unknown Test Item Value Reference Range Comments Unknown (test code = 5905-5) 1.8 % Unknown Unknown F Ordering Physician UnknownLaboratory Rabihff3016-16-91 05:20:00Identifier 61561- 6 Result Time 2019-03-01 05:20:00Unknown Test Item Value Reference Range Comments Unknown (test code = 736-9) 6.0 % Unknown Unknown F Ordering Physician UnknownLaboratory Qdkorbi2125-38-21 05:20:00Identifier 11138- 6 Result Time 2019-03-01 05:20:00Unknown Test Item Value Reference Range Comments Unknown (test code = 713-8) 0.0 % Unknown Unknown F Ordering Physician UnknownLaboratory Laodljb1093-86-84 05:20:00Identifier 78019- 6 Result Time 2019-03-01 05:20:00Unknown Test Item Value Reference Range Comments Unknown (test code = 706-2) 0.2 % Unknown Unknown F Ordering Physician UnknownLaboratory Kzwtjnf1875-38-52 05:20:00Identifier 48072- 6 Result Time 2019-03-01 05:20:00Unknown Test Item Value Reference Range Comments Unknown (test code = BNE6445) 7.0 10^3/ul Unknown 1.5-7.7 F Ordering Physician UnknownLaboratory Vnysbqp4418-90-55 05:20:00Identifier 83116- 6 Result Time 2019-03-01 05:20:00Unknown Test Item Value Reference Range Comments Unknown (test code = 742-7) 0.1 10^3/ul Unknown 0-0.8 F Ordering Physician UnknownLaboratory Grabzkk6455-45-59 05:20:00Identifier 52289- 6 Result Time 2019-03-01 05:20:00Unknown Test Item Value Reference Range Comments Unknown (test code = 731-0) 0.5 10^3/ul Unknown 1.0-4.8 F Ordering Physician UnknownLaboratory Legoaki3956-07-81 05:20:00Identifier 35695- 6 Result Time 2019-03-01 05:20:00Unknown Test Item Value Reference Range Comments Unknown (test code = 711-2) 0.0 10^3/ul Unknown 0-0.6 F Ordering Physician UnknownLaboratory Lkdpdde5341-29-85 05:20:00Identifier 71963- 6 Result Time 2019-03-01 05:20:00Unknown Test Item Value Reference Range Comments Unknown (test code = 704-7) 0.0 10^3/ul Unknown 0-0.2 F Ordering Physician UnknownLaboratory Aqqhwat6155-11-20 01:05:00Identifier 71556- 6 Result Time 2019-03-01 01:05:00Unknown Test Item Value Reference Range Comments Unknown (test code = 2744-1) 7.37 Unknown 7.35-7.45 F Ordering Physician UnknownLaboratory Maubqsg1393-27-13 01:05:00Identifier 56367- 6 Result Time 2019-03-01 01:05:00Unknown Test Item Value Reference Range Comments Unknown (test code = 76477-1) 211 mmHg Unknown 80-100 F Ordering Physician UnknownLaboratory Urfrjrq8845-71-25 01:05:00Identifier 82474- 6 Result Time 2019-03-01 01:05:00Unknown Test Item Value Reference Range Comments Unknown (test code = NullTestCode) 51 mmHg Unknown 35-45 F Ordering Physician UnknownLaboratory Lajqpay6135-40-59 01:05:00Identifier 72040- 6 Result Time 2019-03-01 01:05:00Unknown Test Item Value Reference Range Comments Unknown (test code = 2708-6) 99.9 % Unknown 94.0-98.0 F Ordering Physician UnknownLaboratory Rufuenr4283-59-01 01:05:00Identifier 57044- 6 Result Time 2019-03-01 01:05:00Unknown Test Item Value Reference Range Comments Unknown (test code = 1960-4) 27.4 mmol/L Unknown 19-31 F Ordering Physician UnknownLaboratory Uoxhdwo8824-30-94 01:05:00Identifier 86208- 6 Result Time 2019-03-01 01:05:00Unknown Test Item Value Reference Range Comments Unknown (test code = 1925-7) 3.1 mmol/L Unknown -2.0-2.0 F Ordering Physician UnknownLaboratory Xjibiyv1957-84-73 01:05:00Identifier 05358- 6 Result Time 2019-03-01 01:05:00Unknown Test Item Value Reference Range Comments Unknown (test code = NullTestCode) 80 Unknown Unknown F Ordering Physician UnknownLaboratory Bhfxxcr8984-38-43 01:05:00Identifier 34447- 6 Result Time 2019-03-01 01:05:00Unknown Test Item Value Reference Range Comments Unknown (test code = NullTestCode) 500 Unknown Unknown F Ordering Physician UnknownLaboratory Bqxnheo7212-10-84 01:05:00Identifier 65014- 6 Result Time 2019-03-01 01:05:00Unknown Test Item Value Reference Range Comments Unknown (test code = NullTestCode) 15 Unknown Unknown F Ordering Physician UnknownLaboratory Bcausza9093-63-93 01:05:00Identifier 95548- 6 Result Time 2019-03-01 01:05:00Unknown Test Item Value Reference Range Comments Unknown (test code = NullTestCode) 5 Unknown Unknown F Ordering Physician UnknownLaboratory Ztyofna0856-92-98 20:56:00Identifier 82184- 6 Result Time 2019-02-28 20:56:00Unknown Test Item Value Reference Range Comments Unknown (test code = 3016-3) 1.25 mcIU/mL Unknown 0.34-5.60 F Ordering Physician UnknownLaboratory Skfijqp1481-43-19 20:56:00Identifier 04376- 6 Result Time 2019-02-28 20:56:00Unknown Test Item Value Reference Range Comments Unknown (test code = 2885-2) 7.0 g/dL Unknown 6.4-8.9 F Ordering Physician UnknownLaboratory Xyjxgtp3611-94-74 20:56:00Identifier 39907- 6 Result Time 2019-02-28 20:56:00Unknown Test Item Value Reference Range Comments Unknown (test code = 1975-2) 0.50 mg/dL Unknown 0.2-1.0 F Ordering Physician UnknownLaboratory Gsbsybu2012-17-21 20:56:00Identifier 64482- 6 Result Time 2019-02-28 20:56:00Unknown Test Item Value Reference Range Comments Unknown (test code = NullTestCode) 3.4 g/dL Unknown 2-4 F Ordering Physician UnknownLaboratory Akpjzrc2448-39-23 20:56:00Identifier 97273- 6 Result Time 2019-02-28 20:56:00Unknown Test Item Value Reference Range Comments Unknown (test code = 1988-5) 64.61 mg/L Unknown 0-8.00 F Ordering Physician UnknownLaboratory Bjuyhhj6774-35-59 20:56:00Identifier 30282- 6 Result Time 2019-02-28 20:56:00Unknown Test Item Value Reference Range Comments Unknown (test code = 1920-8) 16 U/L Unknown 13-39 F Ordering Physician UnknownLaboratory Xccoofm2193-04-77 20:56:00Identifier 29062- 6 Result Time 2019-02-28 20:56:00Unknown Test Item Value Reference Range Comments Unknown (test code = 6768-6) 60 U/L Unknown 34-104 F Ordering Physician UnknownLaboratory Hbofxgd9363-86-72 20:56:00Identifier 17747- 6 Result Time 2019-02-28 20:56:00Unknown Test Item Value Reference Range Comments Unknown (test code = 1759-0) 1.1 Unknown 1-3 F Ordering Physician UnknownLaboratory Oltcvus2981-71-73 20:56:00Identifier 06378- 6 Result Time 2019-02-28 20:56:00Unknown Test Item Value Reference Range Comments Unknown (test code = 55578-9) 3.6 g/dL Unknown 3.2-5.2 F Ordering Physician UnknownLaboratory Ltvmfyw7193-24-71 20:56:00Identifier 06877- 6 Result Time 2019-02-28 20:56:00Unknown Test Item Value Reference Range Comments Unknown (test code = 1742-6) 11 U/L Unknown 7-52 F Ordering Physician UnknownLaboratory Dxfczif8030-08-99 20:56:00Identifier 92696- 6 Result Time 2019-02-28 20:56:00Unknown Test Item Value Reference Range Comments Unknown (test code = 06200-1) 224 pg/mL Unknown Unknown F Ordering Physician UnknownLaboratory Tjdogza9225-42-59 20:56:00Identifier 73486- 6 Result Time 2019-02-28 20:56:00Unknown Test Item Value Reference Range Comments Unknown (test code = 2524-7) 1.4 mmol/L Unknown 0.5-2.0 F Ordering Physician UnknownLaboratory Aoatkip4760-88-13 20:56:00Identifier 45141- 6 Result Time 2019-02-28 20:56:00Unknown Test Item Value Reference Range Comments Unknown (test code = 76147-0) 1.12 Unknown 0.82-1.09 F Ordering Physician UnknownLaboratory Jtisugz3717-27-14 20:56:00Identifier 12822- 6 Result Time 2019-02-28 20:56:00Unknown Test Item Value Reference Range Comments Unknown (test code = 05946-4) 36.2 seconds Unknown 26.0-38.0 F Ordering Physician UnknownLaboratory Vuvqtsy8010-50-17 20:49:00Identifier 26546- 6 Result Time 2019-02-28 20:49:00Unknown Test Item Value Reference Range Comments Unknown (test code = NullTestCode) 6.0 Unknown 5-9 F Ordering Physician UnknownLaboratory Pkgddmu7268-47-26 20:49:00Identifier 40322- 6 Result Time 2019-02-28 20:49:00Unknown Test Item Value Reference Range Comments Unknown (test code = 99755-8) 1.008 Unknown 1.010-1.030 F Ordering Physician UnknownLaboratory Xragqtl2298-98-88 17:41:00Identifier 55356- 6 Result Time 2019-02-28 17:41:00Unknown Test Item Value Reference Range Comments Unknown (test code = 2746-6) 7.38 Unknown 7.32-7.43 F Ordering Physician UnknownLaboratory Zxeijxj6981-84-49 17:41:00Identifier 29273- 6 Result Time 2019-02-28 17:41:00Unknown Test Item Value Reference Range Comments Unknown (test code = 2705-2) 51.0 mmHg Unknown 35-45 F Ordering Physician UnknownLaboratory Iwthwfp9718-37-23 17:41:00Identifier 25689- 6 Result Time 2019-02-28 17:41:00Unknown Test Item Value Reference Range Comments Unknown (test code = 2021-4) 61 mmHg Unknown 41-51 F Ordering Physician UnknownLaboratory Bifeqpw4006-87-07 17:41:00Identifier 61540- 6 Result Time 2019-02-28 17:41:00Unknown Test Item Value Reference Range Comments Unknown (test code = 23985-2) 86.2 % Unknown 70-80 F Ordering Physician UnknownLaboratory Lmkjyld9394-10-20 17:41:00Identifier 24318- 6 Result Time 2019-02-28 17:41:00Unknown Test Item Value Reference Range Comments Unknown (test code = NullTestCode) 31.3 mmol/L Unknown 24-28 F Ordering Physician UnknownLaboratory Kyzemvi4410-35-94 17:41:00Identifier 06748- 6 Result Time 2019-02-28 17:41:00Unknown Test Item Value Reference Range Comments Unknown (test code = NullTestCode) 8.7 mmol/L Unknown 0.0-4.0 F Ordering Physician UnknownLaboratory Auozsul1182-11-60 08:40:00Identifier 37162- 6 Result Time 2019-02-10 08:40:00Unknown Test Item Value Reference Range Comments Unknown (test code = 4537-7) 68 mm/Hr Unknown 0-19 F Ordering Physician Unknown
--- OUTSIDE RECORDS SUMMARY | 2019-10-15 10:52 | XMS REPORT ---
:1950 Author Organization [facility] Care Team Providers Name Role Phone Unavailable [...] Result Comments Laboratory Studies 2019-03-08 12:13:00 Identifier [id number] Result Time Unknown 2019-03-08 12:13:00 Test Item Value Reference Range Comments Unknown (test code = 2339-0) 312 mg/dL Unknown 70-100 F Ordering Physician UnknownLaboratory Wwfwgib0958-70-33 06:25:00Identifier 71005- 6 Result Time 2019-03-08 06:25:00Unknown Test Item Value Reference Range Comments Unknown (test code = 2951-2) 136 mmol/L Unknown 135-145 F Ordering Physician UnknownLaboratory Npauyqx7105-83-91 06:25:00Identifier 23631- 6 Result Time 2019-03-08 06:25:00Unknown Test Item Value Reference Range Comments Unknown (test code = 2823-3) 3.7 mmol/L Unknown 3.5-5.0 F Ordering Physician UnknownLaboratory Wkdtkea0637-59-03 06:25:00Identifier 87724- 6 Result Time 2019-03-08 06:25:00Unknown Test Item Value Reference Range Comments Unknown (test code = 2345-7) 175 mg/dL Unknown 70-100 F Ordering Physician UnknownLaboratory Rhifrsh7761-44-83 06:25:00Identifier 01877- 6 Result Time 2019-03-08 06:25:00Unknown Test Item Value Reference Range Comments Unknown (test code = 52430-2) 49.4 Unknown Unknown F Ordering Physician UnknownLaboratory Ethajtd1796-26-05 06:25:00Identifier 52166- 6 Result Time 2019-03-08 06:25:00Unknown Test Item Value Reference Range Comments Unknown (test code = NullTestCode) 59.8 Unknown Unknown F Ordering Physician UnknownLaboratory Udnwlll4580-98-98 06:25:00Identifier 55585- 6 Result Time 2019-03-08 06:25:00Unknown Test Item Value Reference Range Comments Unknown (test code = 2160-0) 1.42 mg/dL Unknown 0.67-1.17 F Ordering Physician UnknownLaboratory Esvobrp3748-90-94 06:25:00Identifier 06508- 6 Result Time 2019-03-08 06:25:00Unknown Test Item Value Reference Range Comments Unknown (test code = 2075-0) 97 mmol/L Unknown 101-111 F Ordering Physician UnknownLaboratory Ituitds5457-54-17 06:25:00Identifier 22008- 6 Result Time 2019-03-08 06:25:00Unknown Test Item Value Reference Range Comments Unknown (test code = 2028-9) 33 mmol/L Unknown 22-32 F Ordering Physician UnknownLaboratory Wzqnqmj9764-56-78 06:25:00Identifier 29890- 6 Result Time 2019-03-08 06:25:00Unknown Test Item Value Reference Range Comments Unknown (test code = 62951-6) 9.6 mg/dL Unknown 8.6-10.3 F Ordering Physician UnknownLaboratory Xofpgsh8353-03-73 06:25:00Identifier 25594- 6 Result Time 2019-03-08 06:25:00Unknown Test Item Value Reference Range Comments Unknown (test code = 3094-0) 28 mg/dL Unknown 6-24 F Ordering Physician UnknownLaboratory Sxmvewc4742-71-44 06:25:00Identifier 64516- 6 Result Time 2019-03-08 06:25:00Unknown Test Item Value Reference Range Comments Unknown (test code = 3097-3) 19.7 Unknown 8-20 F Ordering Physician UnknownLaboratory Akiswuz2607-12-79 06:25:00Identifier 81528- 6 Result Time 2019-03-08 06:25:00Unknown Test Item Value Reference Range Comments Unknown (test code = 18131-9) 6 mmol/L Unknown 2-11 F Ordering Physician UnknownLaboratory Payhqdx1237-83-01 06:25:00Identifier 54322- 6 Result Time 2019-03-08 06:25:00Unknown Test Item Value Reference Range Comments Unknown (test code = 47352-8) 7.7 10^3/uL Unknown 3.5-10.8 F Ordering Physician UnknownLaboratory Iuzveje0050-99-29 06:25:00Identifier 61027- 6 Result Time 2019-03-08 06:25:00Unknown Test Item Value Reference Range Comments Unknown (test code = 788-0) 15 % Unknown 10-15 F Ordering Physician UnknownLaboratory Wardoif9922-71-60 06:25:00Identifier 74285- 6 Result Time 2019-03-08 06:25:00Unknown Test Item Value Reference Range Comments Unknown (test code = 789-8) 3.94 10^6 /uL Unknown 4.18-5.48 F Ordering Physician UnknownLaboratory Wxxcjsq9098-11-00 06:25:00Identifier 12463- 6 Result Time 2019-03-08 06:25:00Unknown Test Item Value Reference Range Comments Unknown (test code = 777-3) 164 10^3/uL Unknown 150-450 F Ordering Physician UnknownLaboratory Qeguvzw1704-15-44 06:25:00Identifier 19051- 6 Result Time 2019-03-08 06:25:00Unknown Test Item Value Reference Range Comments Unknown (test code = 43373-5) 7.8 fL Unknown 7.4-10.4 F Ordering Physician UnknownLaboratory Hbvsgmy4183-43-48 06:25:00Identifier 50661- 6 Result Time 2019-03-08 06:25:00Unknown Test Item Value Reference Range Comments Unknown (test code = 787-2) 81 fL Unknown 80-94 F Ordering Physician UnknownLaboratory Ohovpvb2669-26-23 06:25:00Identifier 96723- 6 Result Time 2019-03-08 06:25:00Unknown Test Item Value Reference Range Comments Unknown (test code = 786-4) 34 g/dL Unknown 31-36 F Ordering Physician UnknownLaboratory Ilipypy2421-90-67 06:25:00Identifier 25008- 6 Result Time 2019-03-08 06:25:00Unknown Test Item Value Reference Range Comments Unknown (test code = 785-6) 27 pg Unknown 27-31 F Ordering Physician UnknownLaboratory Yzzikrg8001-97-77 06:25:00Identifier 37838- 6 Result Time 2019-03-08 06:25:00Unknown Test Item Value Reference Range Comments Unknown (test code = 718-7) 10.8 g/dL Unknown 14.0-18.0 F Ordering Physician UnknownLaboratory Bisbjbe8373-62-86 06:25:00Identifier 33426- 6 Result Time 2019-03-08 06:25:00Unknown Test Item Value Reference Range Comments Unknown (test code = 4544-3) 32 % Unknown 42-52 F Ordering Physician UnknownLaboratory Vkyukkg1577-84-74 06:45:00Identifier 37830- 6 Result Time 2019-03-06 06:45:00Unknown Test Item Value Reference Range Comments Unknown (test code = 2777-1) 3.3 mg/dL Unknown 2.5-5.0 F Ordering Physician UnknownLaboratory Ypkzgyj8337-21-06 06:45:00Identifier 95404- 6 Result Time 2019-03-06 06:45:00Unknown Test Item Value Reference Range Comments Unknown (test code = 65848-0) 2.1 mg/dL Unknown 1.9-2.7 F Ordering Physician UnknownLaboratory Bwbhfmk4249-12-32 13:59:00Identifier 05110- 6 Result Time 2019-03-04 13:59:00Unknown Test Item Value Reference Range Comments Unknown (test code = NullTestCode) Unknown Unknown F Ordering Physician UnknownLaboratory Miwnrqn2050-14-09 13:59:00Identifier 02266- 6 Result Time 2019-03-04 13:59:00Unknown Test Item Value Reference Range Comments Unknown (test code = 3034-6) 203 mg/dL Unknown 203-362 F Ordering Physician UnknownLaboratory Tcjpcfd8819-03-27 13:59:00Identifier 73352- 6 Result Time 2019-03-04 13:59:00Unknown Test Item Value Reference Range Comments Unknown (test code = 2500-7) 284 mcg/dL Unknown 250-450 F Ordering Physician UnknownLaboratory Jfzbses5472-92-14 13:59:00Identifier 36671- 6 Result Time 2019-03-04 13:59:00Unknown Test Item Value Reference Range Comments Unknown (test code = NullTestCode) 13 % Unknown 15-55 F Ordering Physician UnknownLaboratory Fwyrqmx0120-22-27 13:59:00Identifier 61453- 6 Result Time 2019-03-04 13:59:00Unknown Test Item Value Reference Range Comments Unknown (test code = 2498-4) 36 ug/dL Unknown 50-212 F Ordering Physician UnknownLaboratory Wvepcxr9500-15-70 17:35:00Identifier 40164- 6 Result Time 2019-03-01 17:35:00Unknown Test Item Value Reference Range Comments Unknown (test code = 2132-9) 866 pg/mL Unknown 180-914 F Ordering Physician UnknownLaboratory Erhslxv8520-02-11 17:35:00Identifier 43955- 6 Result Time 2019-03-01 17:35:00Unknown Test Item Value Reference Range Comments Unknown (test code = 3053-6) 51 ng/dL Unknown 87-178 F Ordering Physician UnknownLaboratory Gnsgftd3957-19-07 17:35:00Identifier 93220- 6 Result Time 2019-03-01 17:35:00Unknown Test Item Value Reference Range Comments Unknown (test code = 3051-0) 3.10 pg/mL Unknown 2.5-3.9 F Ordering Physician UnknownLaboratory Nylcylk9722-90-11 17:35:00Identifier 12724- 6 Result Time 2019-03-01 17:35:00Unknown Test Item Value Reference Range Comments Unknown (test code = 3024-7) 0.86 ng/dL Unknown 0.61-1.12 F Ordering Physician UnknownLaboratory Zphvbvj9743-41-65 17:35:00Identifier 91842- 6 Result Time 2019-03-01 17:35:00Unknown Test Item Value Reference Range Comments Unknown (test code = 2157-6) 52 U/L Unknown 10-223 F Ordering Physician UnknownLaboratory Eoyhugh6826-32-56 17:35:00Identifier 78407- 6 Result Time 2019-03-01 17:35:00Unknown Test Item Value Reference Range Comments Unknown (test code = 53606-9) 41 mcmol/L Unknown 16-53 F Ordering Physician UnknownLaboratory Loykpkm2198-06-33 16:21:00Identifier 60692- 6 Result Time 2019-03-01 16:21:00Unknown Test Item Value Reference Range Comments Unknown (test code = 33282-1) 0.10 ng/mL Unknown Unknown F Ordering Physician UnknownLaboratory Hodhygx2960-77-23 05:20:00Identifier 23031- 6 Result Time 2019-03-01 05:20:00Unknown Test Item Value Reference Range Comments Unknown (test code = 01369-2) 0.0 Unknown Unknown F Ordering Physician UnknownLaboratory Mrvvnin5128-01-48 05:20:00Identifier 27256- 6 Result Time 2019-03-01 05:20:00Unknown Test Item Value Reference Range Comments Unknown (test code = 771-6) 0.0 10^3/ul Unknown Unknown F Ordering Physician UnknownLaboratory Koqwkqb1814-95-25 05:20:00Identifier 05253- 6 Result Time 2019-03-01 05:20:00Unknown Test Item Value Reference Range Comments Unknown (test code = 770-8) 92.0 % Unknown Unknown F Ordering Physician UnknownLaboratory Bikmots0645-74-32 05:20:00Identifier 91322- 6 Result Time 2019-03-01 05:20:00Unknown Test Item Value Reference Range Comments Unknown (test code = 5905-5) 1.8 % Unknown Unknown F Ordering Physician UnknownLaboratory Qdkyfug4139-45-59 05:20:00Identifier 85514- 6 Result Time 2019-03-01 05:20:00Unknown Test Item Value Reference Range Comments Unknown (test code = 736-9) 6.0 % Unknown Unknown F Ordering Physician UnknownLaboratory Ftghidw2656-21-23 05:20:00Identifier 47226- 6 Result Time 2019-03-01 05:20:00Unknown Test Item Value Reference Range Comments Unknown (test code = 713-8) 0.0 % Unknown Unknown F Ordering Physician UnknownLaboratory Vvncwvt7695-24-20 05:20:00Identifier 21146- 6 Result Time 2019-03-01 05:20:00Unknown Test Item Value Reference Range Comments Unknown (test code = 706-2) 0.2 % Unknown Unknown F Ordering Physician UnknownLaboratory Lajuybn3833-46-79 05:20:00Identifier 10959- 6 Result Time 2019-03-01 05:20:00Unknown Test Item Value Reference Range Comments Unknown (test code = QZV4313) 7.0 10^3/ul Unknown 1.5-7.7 F Ordering Physician UnknownLaboratory Uooumwq8505-15-84 05:20:00Identifier 01685- 6 Result Time 2019-03-01 05:20:00Unknown Test Item Value Reference Range Comments Unknown (test code = 742-7) 0.1 10^3/ul Unknown 0-0.8 F Ordering Physician UnknownLaboratory Fjoxhid4072-21-05 05:20:00Identifier 75908- 6 Result Time 2019-03-01 05:20:00Unknown Test Item Value Reference Range Comments Unknown (test code = 731-0) 0.5 10^3/ul Unknown 1.0-4.8 F Ordering Physician UnknownLaboratory Nhmstqg1169-95-00 05:20:00Identifier 30953- 6 Result Time 2019-03-01 05:20:00Unknown Test Item Value Reference Range Comments Unknown (test code = 711-2) 0.0 10^3/ul Unknown 0-0.6 F Ordering Physician UnknownLaboratory Chkwmgf1203-90-86 05:20:00Identifier 05591- 6 Result Time 2019-03-01 05:20:00Unknown Test Item Value Reference Range Comments Unknown (test code = 704-7) 0.0 10^3/ul Unknown 0-0.2 F Ordering Physician UnknownLaboratory Nlextam5201-10-86 01:05:00Identifier 26933- 6 Result Time 2019-03-01 01:05:00Unknown Test Item Value Reference Range Comments Unknown (test code = 2744-1) 7.37 Unknown 7.35-7.45 F Ordering Physician UnknownLaboratory Otvnuck4706-36-53 01:05:00Identifier 91349- 6 Result Time 2019-03-01 01:05:00Unknown Test Item Value Reference Range Comments Unknown (test code = 96241-1) 211 mmHg Unknown 80-100 F Ordering Physician UnknownLaboratory Uymzwcv6403-05-26 01:05:00Identifier 80864- 6 Result Time 2019-03-01 01:05:00Unknown Test Item Value Reference Range Comments Unknown (test code = NullTestCode) 51 mmHg Unknown 35-45 F Ordering Physician UnknownLaboratory Ajnychx6044-21-73 01:05:00Identifier 53360- 6 Result Time 2019-03-01 01:05:00Unknown Test Item Value Reference Range Comments Unknown (test code = 2708-6) 99.9 % Unknown 94.0-98.0 F Ordering Physician UnknownLaboratory Ymtfbqa1184-14-54 01:05:00Identifier 99333- 6 Result Time 2019-03-01 01:05:00Unknown Test Item Value Reference Range Comments Unknown (test code = 1960-4) 27.4 mmol/L Unknown 19-31 F Ordering Physician UnknownLaboratory Idygnoe1388-76-46 01:05:00Identifier 57091- 6 Result Time 2019-03-01 01:05:00Unknown Test Item Value Reference Range Comments Unknown (test code = 1925-7) 3.1 mmol/L Unknown -2.0-2.0 F Ordering Physician UnknownLaboratory Ulkwvrk0223-31-62 01:05:00Identifier 28503- 6 Result Time 2019-03-01 01:05:00Unknown Test Item Value Reference Range Comments Unknown (test code = NullTestCode) 80 Unknown Unknown F Ordering Physician UnknownLaboratory Jmlrkeq6487-23-54 01:05:00Identifier 97070- 6 Result Time 2019-03-01 01:05:00Unknown Test Item Value Reference Range Comments Unknown (test code = NullTestCode) 500 Unknown Unknown F Ordering Physician UnknownLaboratory Olntvba5012-73-73 01:05:00Identifier 06974- 6 Result Time 2019-03-01 01:05:00Unknown Test Item Value Reference Range Comments Unknown (test code = NullTestCode) 15 Unknown Unknown F Ordering Physician UnknownLaboratory Qnrgoqt7591-65-06 01:05:00Identifier 47415- 6 Result Time 2019-03-01 01:05:00Unknown Test Item Value Reference Range Comments Unknown (test code = NullTestCode) 5 Unknown Unknown F Ordering Physician UnknownLaboratory Javxipl0400-58-70 20:56:00Identifier 86870- 6 Result Time 2019-02-28 20:56:00Unknown Test Item Value Reference Range Comments Unknown (test code = 3016-3) 1.25 mcIU/mL Unknown 0.34-5.60 F Ordering Physician UnknownLaboratory Jddccon3640-35-87 20:56:00Identifier 36767- 6 Result Time 2019-02-28 20:56:00Unknown Test Item Value Reference Range Comments Unknown (test code = 2885-2) 7.0 g/dL Unknown 6.4-8.9 F Ordering Physician UnknownLaboratory Vuhfpah5302-02-14 20:56:00Identifier 23627- 6 Result Time 2019-02-28 20:56:00Unknown Test Item Value Reference Range Comments Unknown (test code = 1975-2) 0.50 mg/dL Unknown 0.2-1.0 F Ordering Physician UnknownLaboratory Etlhhrp8040-74-33 20:56:00Identifier 96472- 6 Result Time 2019-02-28 20:56:00Unknown Test Item Value Reference Range Comments Unknown (test code = NullTestCode) 3.4 g/dL Unknown 2-4 F Ordering Physician UnknownLaboratory Dzfujto4476-21-12 20:56:00Identifier 73503- 6 Result Time 2019-02-28 20:56:00Unknown Test Item Value Reference Range Comments Unknown (test code = 1988-5) 64.61 mg/L Unknown 0-8.00 F Ordering Physician UnknownLaboratory Rmwnxat5819-02-50 20:56:00Identifier 73312- 6 Result Time 2019-02-28 20:56:00Unknown Test Item Value Reference Range Comments Unknown (test code = 1920-8) 16 U/L Unknown 13-39 F Ordering Physician UnknownLaboratory Iakywyq3018-28-50 20:56:00Identifier 12798- 6 Result Time 2019-02-28 20:56:00Unknown Test Item Value Reference Range Comments Unknown (test code = 6768-6) 60 U/L Unknown 34-104 F Ordering Physician UnknownLaboratory Swpvpht7432-41-87 20:56:00Identifier 00640- 6 Result Time 2019-02-28 20:56:00Unknown Test Item Value Reference Range Comments Unknown (test code = 1759-0) 1.1 Unknown 1-3 F Ordering Physician UnknownLaboratory Jbpyeex3164-36-51 20:56:00Identifier 21577- 6 Result Time 2019-02-28 20:56:00Unknown Test Item Value Reference Range Comments Unknown (test code = 06443-6) 3.6 g/dL Unknown 3.2-5.2 F Ordering Physician UnknownLaboratory Dxljpyz9683-63-88 20:56:00Identifier 83571- 6 Result Time 2019-02-28 20:56:00Unknown Test Item Value Reference Range Comments Unknown (test code = 1742-6) 11 U/L Unknown 7-52 F Ordering Physician UnknownLaboratory Hvfjcrs5293-88-43 20:56:00Identifier 39501- 6 Result Time 2019-02-28 20:56:00Unknown Test Item Value Reference Range Comments Unknown (test code = 99178-3) 224 pg/mL Unknown Unknown F Ordering Physician UnknownLaboratory Tibdpen3540-49-58 20:56:00Identifier 23266- 6 Result Time 2019-02-28 20:56:00Unknown Test Item Value Reference Range Comments Unknown (test code = 2524-7) 1.4 mmol/L Unknown 0.5-2.0 F Ordering Physician UnknownLaboratory Kbrcgan6862-26-52 20:56:00Identifier 28565- 6 Result Time 2019-02-28 20:56:00Unknown Test Item Value Reference Range Comments Unknown (test code = 43087-6) 1.12 Unknown 0.82-1.09 F Ordering Physician UnknownLaboratory Onsvcmw4963-78-14 20:56:00Identifier 45922- 6 Result Time 2019-02-28 20:56:00Unknown Test Item Value Reference Range Comments Unknown (test code = 17194-1) 36.2 seconds Unknown 26.0-38.0 F Ordering Physician UnknownLaboratory Hcnjfpk3095-30-10 20:49:00Identifier 85612- 6 Result Time 2019-02-28 20:49:00Unknown Test Item Value Reference Range Comments Unknown (test code = NullTestCode) 6.0 Unknown 5-9 F Ordering Physician UnknownLaboratory Snwjjww2107-73-95 20:49:00Identifier 44569- 6 Result Time 2019-02-28 20:49:00Unknown Test Item Value Reference Range Comments Unknown (test code = 16762-8) 1.008 Unknown 1.010-1.030 F Ordering Physician UnknownLaboratory Vdmpglg4811-46-95 17:41:00Identifier 36051- 6 Result Time 2019-02-28 17:41:00Unknown Test Item Value Reference Range Comments Unknown (test code = 2746-6) 7.38 Unknown 7.32-7.43 F Ordering Physician UnknownLaboratory Mnmbzgv9290-82-96 17:41:00Identifier 31568- 6 Result Time 2019-02-28 17:41:00Unknown Test Item Value Reference Range Comments Unknown (test code = 2705-2) 51.0 mmHg Unknown 35-45 F Ordering Physician UnknownLaboratory Lehrkwc5503-46-60 17:41:00Identifier 06623- 6 Result Time 2019-02-28 17:41:00Unknown Test Item Value Reference Range Comments Unknown (test code = 2021-4) 61 mmHg Unknown 41-51 F Ordering Physician UnknownLaboratory Kvhtnlh7449-67-60 17:41:00Identifier 59051- 6 Result Time 2019-02-28 17:41:00Unknown Test Item Value Reference Range Comments Unknown (test code = 42572-5) 86.2 % Unknown 70-80 F Ordering Physician UnknownLaboratory Xejasiw3634-39-67 17:41:00Identifier 66837- 6 Result Time 2019-02-28 17:41:00Unknown Test Item Value Reference Range Comments Unknown (test code = NullTestCode) 31.3 mmol/L Unknown 24-28 F Ordering Physician UnknownLaboratory Qqhfpfq3495-97-41 17:41:00Identifier 59396- 6 Result Time 2019-02-28 17:41:00Unknown Test Item Value Reference Range Comments Unknown (test code = NullTestCode) 8.7 mmol/L Unknown 0.0-4.0 F Ordering Physician UnknownLaboratory Bcynbxv1792-41-25 08:40:00Identifier 75981- 6 Result Time 2019-02-10 08:40:00Unknown Test Item Value Reference Range Comments Unknown (test code = 4537-7) 68 mm/Hr Unknown 0-19 F Ordering Physician Unknown
--- OUTSIDE RECORDS SUMMARY | 2019-10-15 10:52 | XMS REPORT ---
:1950 Author Organization [facility] Care Team Providers Name [...] Result Comments Laboratory Studies 2019-03-08 12:13:00 Identifier [id number] Result Time Unknown 2019-03-08 12:13:00 Test Item Value Reference Range Comments Unknown (test code = 2339-0) 312 mg/dL Unknown 70-100 F Ordering Physician UnknownLaboratory Tvyezeu8345-84-56 06:25:00Identifier 38767- 6 Result Time 2019-03-08 06:25:00Unknown Test Item Value Reference Range Comments Unknown (test code = 2951-2) 136 mmol/L Unknown 135-145 F Ordering Physician UnknownLaboratory Jcuvxrq1758-52-55 06:25:00Identifier 29283- 6 Result Time 2019-03-08 06:25:00Unknown Test Item Value Reference Range Comments Unknown (test code = 2823-3) 3.7 mmol/L Unknown 3.5-5.0 F Ordering Physician UnknownLaboratory Mizcrvu9368-33-58 06:25:00Identifier 59777- 6 Result Time 2019-03-08 06:25:00Unknown Test Item Value Reference Range Comments Unknown (test code = 2345-7) 175 mg/dL Unknown 70-100 F Ordering Physician UnknownLaboratory Pebaron0248-39-16 06:25:00Identifier 85624- 6 Result Time 2019-03-08 06:25:00Unknown Test Item Value Reference Range Comments Unknown (test code = 95592-0) 49.4 Unknown Unknown F Ordering Physician UnknownLaboratory Wwdhtds6781-64-57 06:25:00Identifier 00083- 6 Result Time 2019-03-08 06:25:00Unknown Test Item Value Reference Range Comments Unknown (test code = NullTestCode) 59.8 Unknown Unknown F Ordering Physician UnknownLaboratory Ggbkagm7092-03-23 06:25:00Identifier 93943- 6 Result Time 2019-03-08 06:25:00Unknown Test Item Value Reference Range Comments Unknown (test code = 2160-0) 1.42 mg/dL Unknown 0.67-1.17 F Ordering Physician UnknownLaboratory Aywsmgj4682-24-05 06:25:00Identifier 01729- 6 Result Time 2019-03-08 06:25:00Unknown Test Item Value Reference Range Comments Unknown (test code = 2075-0) 97 mmol/L Unknown 101-111 F Ordering Physician UnknownLaboratory Bfjkyem6262-46-56 06:25:00Identifier 17361- 6 Result Time 2019-03-08 06:25:00Unknown Test Item Value Reference Range Comments Unknown (test code = 2028-9) 33 mmol/L Unknown 22-32 F Ordering Physician UnknownLaboratory Hbiamgr0530-51-98 06:25:00Identifier 78772- 6 Result Time 2019-03-08 06:25:00Unknown Test Item Value Reference Range Comments Unknown (test code = 48158-0) 9.6 mg/dL Unknown 8.6-10.3 F Ordering Physician UnknownLaboratory Pvyfqhq7896-63-46 06:25:00Identifier 63637- 6 Result Time 2019-03-08 06:25:00Unknown Test Item Value Reference Range Comments Unknown (test code = 3094-0) 28 mg/dL Unknown 6-24 F Ordering Physician UnknownLaboratory Vkigenj0650-94-89 06:25:00Identifier 49285- 6 Result Time 2019-03-08 06:25:00Unknown Test Item Value Reference Range Comments Unknown (test code = 3097-3) 19.7 Unknown 8-20 F Ordering Physician UnknownLaboratory Pojlzqh7391-24-14 06:25:00Identifier 22895- 6 Result Time 2019-03-08 06:25:00Unknown Test Item Value Reference Range Comments Unknown (test code = 79015-1) 6 mmol/L Unknown 2-11 F Ordering Physician UnknownLaboratory Fomrcqu5097-21-91 06:25:00Identifier 95809- 6 Result Time 2019-03-08 06:25:00Unknown Test Item Value Reference Range Comments Unknown (test code = 90045-9) 7.7 10^3/uL Unknown 3.5-10.8 F Ordering Physician UnknownLaboratory Vpfpric8391-40-83 06:25:00Identifier 61111- 6 Result Time 2019-03-08 06:25:00Unknown Test Item Value Reference Range Comments Unknown (test code = 788-0) 15 % Unknown 10-15 F Ordering Physician UnknownLaboratory Kondwuz8771-48-55 06:25:00Identifier 47452- 6 Result Time 2019-03-08 06:25:00Unknown Test Item Value Reference Range Comments Unknown (test code = 789-8) 3.94 10^6 /uL Unknown 4.18-5.48 F Ordering Physician UnknownLaboratory Jhwqzbi5001-45-59 06:25:00Identifier 11401- 6 Result Time 2019-03-08 06:25:00Unknown Test Item Value Reference Range Comments Unknown (test code = 777-3) 164 10^3/uL Unknown 150-450 F Ordering Physician UnknownLaboratory Gibzwic9349-39-01 06:25:00Identifier 62854- 6 Result Time 2019-03-08 06:25:00Unknown Test Item Value Reference Range Comments Unknown (test code = 45158-6) 7.8 fL Unknown 7.4-10.4 F Ordering Physician UnknownLaboratory Pecnpfg1453-25-88 06:25:00Identifier 66509- 6 Result Time 2019-03-08 06:25:00Unknown Test Item Value Reference Range Comments Unknown (test code = 787-2) 81 fL Unknown 80-94 F Ordering Physician UnknownLaboratory Hobruno0995-11-05 06:25:00Identifier 53452- 6 Result Time 2019-03-08 06:25:00Unknown Test Item Value Reference Range Comments Unknown (test code = 786-4) 34 g/dL Unknown 31-36 F Ordering Physician UnknownLaboratory Hxmjyee6738-77-51 06:25:00Identifier 17067- 6 Result Time 2019-03-08 06:25:00Unknown Test Item Value Reference Range Comments Unknown (test code = 785-6) 27 pg Unknown 27-31 F Ordering Physician UnknownLaboratory Nksixtu0101-15-28 06:25:00Identifier 90961- 6 Result Time 2019-03-08 06:25:00Unknown Test Item Value Reference Range Comments Unknown (test code = 718-7) 10.8 g/dL Unknown 14.0-18.0 F Ordering Physician UnknownLaboratory Fnbyplz3197-87-59 06:25:00Identifier 68662- 6 Result Time 2019-03-08 06:25:00Unknown Test Item Value Reference Range Comments Unknown (test code = 4544-3) 32 % Unknown 42-52 F Ordering Physician UnknownLaboratory Xyohvky3352-34-97 06:45:00Identifier 45920- 6 Result Time 2019-03-06 06:45:00Unknown Test Item Value Reference Range Comments Unknown (test code = 2777-1) 3.3 mg/dL Unknown 2.5-5.0 F Ordering Physician UnknownLaboratory Xdozksr6043-02-49 06:45:00Identifier 53957- 6 Result Time 2019-03-06 06:45:00Unknown Test Item Value Reference Range Comments Unknown (test code = 17863-0) 2.1 mg/dL Unknown 1.9-2.7 F Ordering Physician UnknownLaboratory Kqxddem8548-14-55 13:59:00Identifier 32032- 6 Result Time 2019-03-04 13:59:00Unknown Test Item Value Reference Range Comments Unknown (test code = NullTestCode) Unknown Unknown F Ordering Physician UnknownLaboratory Locdmzn7881-49-58 13:59:00Identifier 99044- 6 Result Time 2019-03-04 13:59:00Unknown Test Item Value Reference Range Comments Unknown (test code = 3034-6) 203 mg/dL Unknown 203-362 F Ordering Physician UnknownLaboratory Rtjqiyi9596-24-99 13:59:00Identifier 45918- 6 Result Time 2019-03-04 13:59:00Unknown Test Item Value Reference Range Comments Unknown (test code = 2500-7) 284 mcg/dL Unknown 250-450 F Ordering Physician UnknownLaboratory Hvszgup2938-15-19 13:59:00Identifier 15875- 6 Result Time 2019-03-04 13:59:00Unknown Test Item Value Reference Range Comments Unknown (test code = NullTestCode) 13 % Unknown 15-55 F Ordering Physician UnknownLaboratory Zxcowbr7067-98-33 13:59:00Identifier 48337- 6 Result Time 2019-03-04 13:59:00Unknown Test Item Value Reference Range Comments Unknown (test code = 2498-4) 36 ug/dL Unknown 50-212 F Ordering Physician UnknownLaboratory Dmbldtm0442-80-32 17:35:00Identifier 23719- 6 Result Time 2019-03-01 17:35:00Unknown Test Item Value Reference Range Comments Unknown (test code = 2132-9) 866 pg/mL Unknown 180-914 F Ordering Physician UnknownLaboratory Rgzdyfw0553-66-62 17:35:00Identifier 30329- 6 Result Time 2019-03-01 17:35:00Unknown Test Item Value Reference Range Comments Unknown (test code = 3053-6) 51 ng/dL Unknown 87-178 F Ordering Physician UnknownLaboratory Jlfmosr5272-23-93 17:35:00Identifier 58278- 6 Result Time 2019-03-01 17:35:00Unknown Test Item Value Reference Range Comments Unknown (test code = 3051-0) 3.10 pg/mL Unknown 2.5-3.9 F Ordering Physician UnknownLaboratory Lfqolsh8446-04-57 17:35:00Identifier 58824- 6 Result Time 2019-03-01 17:35:00Unknown Test Item Value Reference Range Comments Unknown (test code = 3024-7) 0.86 ng/dL Unknown 0.61-1.12 F Ordering Physician UnknownLaboratory Lwoexyo8174-70-97 17:35:00Identifier 53027- 6 Result Time 2019-03-01 17:35:00Unknown Test Item Value Reference Range Comments Unknown (test code = 2157-6) 52 U/L Unknown 10-223 F Ordering Physician UnknownLaboratory Dtvpikf2735-16-08 17:35:00Identifier 21441- 6 Result Time 2019-03-01 17:35:00Unknown Test Item Value Reference Range Comments Unknown (test code = 83616-6) 41 mcmol/L Unknown 16-53 F Ordering Physician UnknownLaboratory Sidrxye7337-67-83 16:21:00Identifier 57976- 6 Result Time 2019-03-01 16:21:00Unknown Test Item Value Reference Range Comments Unknown (test code = 52940-5) 0.10 ng/mL Unknown Unknown F Ordering Physician UnknownLaboratory Urhzcye8692-88-20 05:20:00Identifier 51666- 6 Result Time 2019-03-01 05:20:00Unknown Test Item Value Reference Range Comments Unknown (test code = 28540-7) 0.0 Unknown Unknown F Ordering Physician UnknownLaboratory Ylwdaou4198-44-72 05:20:00Identifier 02940- 6 Result Time 2019-03-01 05:20:00Unknown Test Item Value Reference Range Comments Unknown (test code = 771-6) 0.0 10^3/ul Unknown Unknown F Ordering Physician UnknownLaboratory Uesjfmx5771-23-18 05:20:00Identifier 36087- 6 Result Time 2019-03-01 05:20:00Unknown Test Item Value Reference Range Comments Unknown (test code = 770-8) 92.0 % Unknown Unknown F Ordering Physician UnknownLaboratory Xagqobn7813-22-90 05:20:00Identifier 79151- 6 Result Time 2019-03-01 05:20:00Unknown Test Item Value Reference Range Comments Unknown (test code = 5905-5) 1.8 % Unknown Unknown F Ordering Physician UnknownLaboratory Xizssqs3778-61-03 05:20:00Identifier 44327- 6 Result Time 2019-03-01 05:20:00Unknown Test Item Value Reference Range Comments Unknown (test code = 736-9) 6.0 % Unknown Unknown F Ordering Physician UnknownLaboratory Hbitmny2255-29-46 05:20:00Identifier 45728- 6 Result Time 2019-03-01 05:20:00Unknown Test Item Value Reference Range Comments Unknown (test code = 713-8) 0.0 % Unknown Unknown F Ordering Physician UnknownLaboratory Enrcfhp8218-02-66 05:20:00Identifier 94052- 6 Result Time 2019-03-01 05:20:00Unknown Test Item Value Reference Range Comments Unknown (test code = 706-2) 0.2 % Unknown Unknown F Ordering Physician UnknownLaboratory Iutciib9178-26-95 05:20:00Identifier 76482- 6 Result Time 2019-03-01 05:20:00Unknown Test Item Value Reference Range Comments Unknown (test code = VUP7386) 7.0 10^3/ul Unknown 1.5-7.7 F Ordering Physician UnknownLaboratory Ucjqaui0947-28-22 05:20:00Identifier 88344- 6 Result Time 2019-03-01 05:20:00Unknown Test Item Value Reference Range Comments Unknown (test code = 742-7) 0.1 10^3/ul Unknown 0-0.8 F Ordering Physician UnknownLaboratory Grlqcil8495-91-52 05:20:00Identifier 22421- 6 Result Time 2019-03-01 05:20:00Unknown Test Item Value Reference Range Comments Unknown (test code = 731-0) 0.5 10^3/ul Unknown 1.0-4.8 F Ordering Physician UnknownLaboratory Xwwxojs9435-41-00 05:20:00Identifier 14040- 6 Result Time 2019-03-01 05:20:00Unknown Test Item Value Reference Range Comments Unknown (test code = 711-2) 0.0 10^3/ul Unknown 0-0.6 F Ordering Physician UnknownLaboratory Xgtdrip7969-30-66 05:20:00Identifier 58708- 6 Result Time 2019-03-01 05:20:00Unknown Test Item Value Reference Range Comments Unknown (test code = 704-7) 0.0 10^3/ul Unknown 0-0.2 F Ordering Physician UnknownLaboratory Indzvmb9364-53-98 01:05:00Identifier 19195- 6 Result Time 2019-03-01 01:05:00Unknown Test Item Value Reference Range Comments Unknown (test code = 2744-1) 7.37 Unknown 7.35-7.45 F Ordering Physician UnknownLaboratory Wtljsli2963-54-97 01:05:00Identifier 63296- 6 Result Time 2019-03-01 01:05:00Unknown Test Item Value Reference Range Comments Unknown (test code = 25314-5) 211 mmHg Unknown 80-100 F Ordering Physician UnknownLaboratory Nfwwjen0238-48-08 01:05:00Identifier 36620- 6 Result Time 2019-03-01 01:05:00Unknown Test Item Value Reference Range Comments Unknown (test code = NullTestCode) 51 mmHg Unknown 35-45 F Ordering Physician UnknownLaboratory Jwhlsxg7078-46-68 01:05:00Identifier 59919- 6 Result Time 2019-03-01 01:05:00Unknown Test Item Value Reference Range Comments Unknown (test code = 2708-6) 99.9 % Unknown 94.0-98.0 F Ordering Physician UnknownLaboratory Jflgqil7779-83-34 01:05:00Identifier 02409- 6 Result Time 2019-03-01 01:05:00Unknown Test Item Value Reference Range Comments Unknown (test code = 1960-4) 27.4 mmol/L Unknown 19-31 F Ordering Physician UnknownLaboratory Tscxrln6311-03-24 01:05:00Identifier 93855- 6 Result Time 2019-03-01 01:05:00Unknown Test Item Value Reference Range Comments Unknown (test code = 1925-7) 3.1 mmol/L Unknown -2.0-2.0 F Ordering Physician UnknownLaboratory Ntjydgx8138-21-38 01:05:00Identifier 80805- 6 Result Time 2019-03-01 01:05:00Unknown Test Item Value Reference Range Comments Unknown (test code = NullTestCode) 80 Unknown Unknown F Ordering Physician UnknownLaboratory Bizrqyd1293-19-42 01:05:00Identifier 69338- 6 Result Time 2019-03-01 01:05:00Unknown Test Item Value Reference Range Comments Unknown (test code = NullTestCode) 500 Unknown Unknown F Ordering Physician UnknownLaboratory Jswmqrf6062-93-79 01:05:00Identifier 97522- 6 Result Time 2019-03-01 01:05:00Unknown Test Item Value Reference Range Comments Unknown (test code = NullTestCode) 15 Unknown Unknown F Ordering Physician UnknownLaboratory Znjjmri9687-67-24 01:05:00Identifier 55793- 6 Result Time 2019-03-01 01:05:00Unknown Test Item Value Reference Range Comments Unknown (test code = NullTestCode) 5 Unknown Unknown F Ordering Physician UnknownLaboratory Fkfwgya0563-79-95 20:56:00Identifier 74826- 6 Result Time 2019-02-28 20:56:00Unknown Test Item Value Reference Range Comments Unknown (test code = 3016-3) 1.25 mcIU/mL Unknown 0.34-5.60 F Ordering Physician UnknownLaboratory Oogngkj8599-69-40 20:56:00Identifier 79594- 6 Result Time 2019-02-28 20:56:00Unknown Test Item Value Reference Range Comments Unknown (test code = 2885-2) 7.0 g/dL Unknown 6.4-8.9 F Ordering Physician UnknownLaboratory Khmwxvc6239-14-06 20:56:00Identifier 38555- 6 Result Time 2019-02-28 20:56:00Unknown Test Item Value Reference Range Comments Unknown (test code = 1975-2) 0.50 mg/dL Unknown 0.2-1.0 F Ordering Physician UnknownLaboratory Krwpkao9745-72-40 20:56:00Identifier 91125- 6 Result Time 2019-02-28 20:56:00Unknown Test Item Value Reference Range Comments Unknown (test code = NullTestCode) 3.4 g/dL Unknown 2-4 F Ordering Physician UnknownLaboratory Jcnfscz4717-40-15 20:56:00Identifier 90757- 6 Result Time 2019-02-28 20:56:00Unknown Test Item Value Reference Range Comments Unknown (test code = 1988-5) 64.61 mg/L Unknown 0-8.00 F Ordering Physician UnknownLaboratory Tmgaeco3959-05-03 20:56:00Identifier 41541- 6 Result Time 2019-02-28 20:56:00Unknown Test Item Value Reference Range Comments Unknown (test code = 1920-8) 16 U/L Unknown 13-39 F Ordering Physician UnknownLaboratory Ahihnwe9265-01-70 20:56:00Identifier 16133- 6 Result Time 2019-02-28 20:56:00Unknown Test Item Value Reference Range Comments Unknown (test code = 6768-6) 60 U/L Unknown 34-104 F Ordering Physician UnknownLaboratory Jfdlblb5746-34-77 20:56:00Identifier 88425- 6 Result Time 2019-02-28 20:56:00Unknown Test Item Value Reference Range Comments Unknown (test code = 1759-0) 1.1 Unknown 1-3 F Ordering Physician UnknownLaboratory Vqhtafs2895-19-23 20:56:00Identifier 44934- 6 Result Time 2019-02-28 20:56:00Unknown Test Item Value Reference Range Comments Unknown (test code = 70615-7) 3.6 g/dL Unknown 3.2-5.2 F Ordering Physician UnknownLaboratory Hielzmi6412-82-45 20:56:00Identifier 66826- 6 Result Time 2019-02-28 20:56:00Unknown Test Item Value Reference Range Comments Unknown (test code = 1742-6) 11 U/L Unknown 7-52 F Ordering Physician UnknownLaboratory Polwajk4167-00-27 20:56:00Identifier 26942- 6 Result Time 2019-02-28 20:56:00Unknown Test Item Value Reference Range Comments Unknown (test code = 38086-0) 224 pg/mL Unknown Unknown F Ordering Physician UnknownLaboratory Wpjhvse5137-00-42 20:56:00Identifier 03596- 6 Result Time 2019-02-28 20:56:00Unknown Test Item Value Reference Range Comments Unknown (test code = 2524-7) 1.4 mmol/L Unknown 0.5-2.0 F Ordering Physician UnknownLaboratory Qzmsgzp9218-53-73 20:56:00Identifier 44436- 6 Result Time 2019-02-28 20:56:00Unknown Test Item Value Reference Range Comments Unknown (test code = 84139-8) 1.12 Unknown 0.82-1.09 F Ordering Physician UnknownLaboratory Pjctvil1909-93-73 20:56:00Identifier 39302- 6 Result Time 2019-02-28 20:56:00Unknown Test Item Value Reference Range Comments Unknown (test code = 09344-1) 36.2 seconds Unknown 26.0-38.0 F Ordering Physician UnknownLaboratory Uyjjffl1312-60-71 20:49:00Identifier 30264- 6 Result Time 2019-02-28 20:49:00Unknown Test Item Value Reference Range Comments Unknown (test code = NullTestCode) 6.0 Unknown 5-9 F Ordering Physician UnknownLaboratory Hpwgtnf0337-81-57 20:49:00Identifier 96822- 6 Result Time 2019-02-28 20:49:00Unknown Test Item Value Reference Range Comments Unknown (test code = 98252-9) 1.008 Unknown 1.010-1.030 F Ordering Physician UnknownLaboratory Egueoba3345-31-71 17:41:00Identifier 66777- 6 Result Time 2019-02-28 17:41:00Unknown Test Item Value Reference Range Comments Unknown (test code = 2746-6) 7.38 Unknown 7.32-7.43 F Ordering Physician UnknownLaboratory Qvguqbj8077-04-91 17:41:00Identifier 93045- 6 Result Time 2019-02-28 17:41:00Unknown Test Item Value Reference Range Comments Unknown (test code = 2705-2) 51.0 mmHg Unknown 35-45 F Ordering Physician UnknownLaboratory Ikjcjxn0939-15-71 17:41:00Identifier 37708- 6 Result Time 2019-02-28 17:41:00Unknown Test Item Value Reference Range Comments Unknown (test code = 2021-4) 61 mmHg Unknown 41-51 F Ordering Physician UnknownLaboratory Kdlkoul4990-51-38 17:41:00Identifier 24152- 6 Result Time 2019-02-28 17:41:00Unknown Test Item Value Reference Range Comments Unknown (test code = 35808-4) 86.2 % Unknown 70-80 F Ordering Physician UnknownLaboratory Tazsdla7911-02-26 17:41:00Identifier 55482- 6 Result Time 2019-02-28 17:41:00Unknown Test Item Value Reference Range Comments Unknown (test code = NullTestCode) 31.3 mmol/L Unknown 24-28 F Ordering Physician UnknownLaboratory Ggvcndo0422-30-43 17:41:00Identifier 84559- 6 Result Time 2019-02-28 17:41:00Unknown Test Item Value Reference Range Comments Unknown (test code = NullTestCode) 8.7 mmol/L Unknown 0.0-4.0 F Ordering Physician UnknownLaboratory Hrrbxdt5993-20-96 08:40:00Identifier 23161- 6 Result Time 2019-02-10 08:40:00Unknown Test Item Value Reference Range Comments Unknown (test code = 4537-7) 68 mm/Hr Unknown 0-19 F Ordering Physician Unknown
--- OUTSIDE RECORDS SUMMARY | 2019-10-15 10:52 | XMS REPORT ---
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 08-01 Graves pulmonary pulmonary [id number] disease, disease, unspecified unspecified Hypertensiv Hypertensiv Diagnosis Active Patrice e heart and e heart and 08-01 Graves chronic chronic [id number] kidney kidney disease disease with heart with heart failure and failure and stage 1 stage 1 through through stage 4 stage 4 chronic chronic kidney kidney disease, or disease, or unspecified unspecified chronic chronic kidney kidney disease disease Chronic Chronic Diagnosis Active Patrice diastolic diastolic 08-01 Graves (congestive (congestive [id number] ) heart ) heart failure failure 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 08-01 Graves mellitus mellitus [id number] with with diabetic diabetic chronic chronic kidney kidney disease disease Chronic Chronic Diagnosis Active [place] kidney kidney 08-01 Graves disease, disease, [id number] stage 3 stage 3 (moderate) (moderate) 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 [place] coronary coronary artery artery without without angina angina pectoris pectoris 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 mellitus mellitus [id number] with with diabetic diabetic peripheral peripheral angiopathy angiopathy without without gangrene gangrene Rheumatoid Rheumatoid Diagnosis Active Patrice arthritis, arthritis, Graves unspecified unspecified [id number] 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 mellitus mellitus [id number] with with diabetic diabetic polyneuropa polyneuropa thy thy Major Major Diagnosis Active [place] depressive depressive Graves disorder, disorder, [id number] single single episode, episode, unspecified unspecified 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 [place] myocardial myocardial Graves infarction infarction [id number] Unspecified Unspecified Diagnosis Active Patrice osteoarthri osteoarthri Graves tis, tis, [id number] unspecified unspecified site site Personal Personal Diagnosis Active Patrice history of history of Graves pneumonia pneumonia [id number] (recurrent) (recurrent) Presence of Presence of Diagnosis Active 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 [id number] graft graft Presence of Presence of Diagnosis Active [place] cardiac cardiac Graves pacemaker pacemaker [id number] 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 (current) (current) Graves use of use of [id number] aspirin aspirin 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 (current) (current) Graves use of use of [id number] insulin insulin 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 (current) (current) Graves use of use of [id number] inhaled inhaled steroids steroids 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 [id number] toe(s) toe(s) 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 Graves other right other right [id number] toe(s) toe(s) Dependence Dependence Diagnosis Active Patrice on on Graves wheelchair wheelchair [id number] Pain frequent Pain Mgmt Resolve 2019-08-03 Anisha pain d - 13:00:00 [place] 11:30: [id number] 00 Cardio edema Cardiovasc Resolve 2019-08-03 Anisha ular d 1- 13:00:00 [place] 11:30: [id number] 00 Respiratory dyspnea Respirator Resolve 2019-08-03 Anisha present y d - 13:00:00 [place] 11:30: [id number] 00 Respiratory oxygen Respirator Resolve 2019-08-03 Anisha treatments y d 1- 13:00:00 [place] in home 11:30: [id number] 00 Endo/Nhan diabetic Endo/Nhan Resolve 2019-08-03 Anisha foot care d 1- 13:00:00 [place] 11:30: [id number] 00 Endo/Nhan anti-coagul Endo/Nhan Resolve 2019-08-03 Anisha ation d - 13:00:00 [place] therapy 11:30: [id number] 00 Integument skin Integument Resolve 2019-08-03 Anisha integrity d 1-03 13:00:00 [place] risk 11:30: [id number] 00 Nutrition nutritional Nutrition Resolve 2019-08-03 Anisha restriction d - 13:00:00 [place] s 11:30: [id number] 00 Neuro confusion Neuro/Emot Resolve 2019-08-03 Anisha present ion d 1- 13:00:00 [place] 11:30: [id number] 00 Neuro anxiety Neuro/Emot Resolve 2019-08-03 Anisha present ion d - 13:00:00 [place] 11:30: [id number] 00 Neuro impaired Neuro/Emot Resolve 2019-08-03 Anisha decision-ma ion d 08-03 13:00:00 [place] lionel 11:30: [id number] 00 Activity ADL Activity Resolve 2019-08-03 Anisha assistance d - 13:00:00 [place] required 11:30: [id number] 00 Activity self-care Activity Resolve 2019-08-03 Anisha deficit d - 13:00:00 [place] 11:30: [id number] 00 Safety fall risk Safety Resolve 2019-08-03 Anisha factor d 08-03 13:00:00 [place] present 11:30: [id number] 00 Safety can be left Safety Resolve 2019-08-03 Anisha alone for d 08-03 13:00:00 [place] only short 11:30: [id number] periods 00 Safety risk for Safety Resolve 2019-08-03 Anisha hospitaliza d - 13:00:00 [place] tion 11:30: [id number] 00 Medication oral med Meds Resolve 2019-08-03 Anisha assistance d - 13:00:00 [place] required 11:30: [id number] 00 Medication injectable Meds Resolve 2019-08-03 Anisha med d - 13:00:00 [place] assistance 11:30: [id number] required 00 Medication knowledge/s Meds Resolve 2019-08-03 Anisha kill d - 13:00:00 [place] deficit: pt 11:30: [id number] 00 Musculoskel transfer Musculoske Resolve 2019-08-03 Anisha etal assistance letal d 08-03 13:00:00 [place] required 11:30: [id number] 00 Musculoskel requires Musculoske Resolve 2019-08-03 Anisha etal human letal d 08-03 13:00:00 [place] assist to 11:30: [id number] leave home 00 Musculoskel requires Musculoske Resolve 2019-08-03 Anisha etal special letal d 08-03 13:00:00 [place] transportat 11:30: [id number] ion 00 Allergies, Adverse Reactions, Alerts Allergy [...]
--- OUTSIDE RECORDS SUMMARY | 2019-10-15 10:52 | XMS REPORT ---
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 08-01 Graves pulmonary pulmonary [id number] disease, disease, unspecified unspecified Hypertensiv Hypertensiv Diagnosis Active Patrice e heart and e heart and 08-01 Graves chronic chronic [id number] kidney kidney disease disease with heart with heart failure and failure and stage 1 stage 1 through through stage 4 stage 4 chronic chronic kidney kidney disease, or disease, or unspecified unspecified chronic chronic kidney kidney disease disease Chronic Chronic Diagnosis Active Patrice diastolic diastolic 08-01 Graves (congestive (congestive [id number] ) heart ) heart failure failure 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 08-01 Graves mellitus mellitus [id number] with with diabetic diabetic chronic chronic kidney kidney disease disease Chronic Chronic Diagnosis Active [place] kidney kidney 08-01 Graves disease, disease, [id number] stage 3 stage 3 (moderate) (moderate) 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 [id number] [place] coronary coronary artery artery without without angina angina pectoris pectoris 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 mellitus mellitus [id number] with with diabetic diabetic peripheral peripheral angiopathy angiopathy without without gangrene gangrene Rheumatoid Rheumatoid Diagnosis Active Patrice arthritis, arthritis, Graves unspecified unspecified [id number] 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 mellitus mellitus [id number] with with diabetic diabetic polyneuropa polyneuropa thy thy Major Major Diagnosis Active [place] depressive depressive Graves disorder, disorder, [id number] single single episode, episode, unspecified unspecified 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 [place] myocardial myocardial Graves infarction infarction [id number] Unspecified Unspecified Diagnosis Active Patrice osteoarthri osteoarthri Graves tis, tis, [id number] unspecified unspecified site site Personal Personal Diagnosis Active Patrice history of history of Graves pneumonia pneumonia [id number] (recurrent) (recurrent) Presence of Presence of Diagnosis Active 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 [id number] graft graft Presence of Presence of Diagnosis Active Patrice cardiac cardiac Graves pacemaker pacemaker [id number] correction long term Diagnosis Active Patrice (current) (current) Graves use of use of OR699024 aspirin aspirin correction long term Diagnosis Active Patrice (current) (current) Graves use of use of IU239959 insulin insulin long term long term Diagnosis Active Patrice (current) (current) Graves use of use of [id number] inhaled inhaled steroids steroids 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 [id number] toe(s) toe(s) 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 Graves other right other right [id number] toe(s) toe(s) Dependence Dependence Diagnosis Active Patrice on on Graves wheelchair wheelchair [id number] Pain frequent Pain Mgmt Resolve 2019-08-03 Anisha pain d - 13:00:00 [place] 11:30: [id number] 00 Cardio edema Cardiovasc Resolve 2019-08-03 Anisha ular d 1- 13:00:00 [place] 11:30: [id number] 00 Respiratory dyspnea Respirator Resolve 2019-08-03 Anisha present y d - 13:00:00 [place] 11:30: [id number] 00 Respiratory oxygen Respirator Resolve 2019-08-03 Anisha treatments y d 1- 13:00:00 [place] in home 11:30: [id number] 00 Endo/Nhan diabetic Endo/Nhan Resolve 2019-08-03 Anisha foot care d 1- 13:00:00 [place] 11:30: [id number] 00 Endo/Nhan anti-coagul Endo/Nhan Resolve 2019-08-03 Anisha ation d - 13:00:00 [place] therapy 11:30: [id number] 00 Integument skin Integument Resolve 2019-08-03 Anisha integrity d 1-03 13:00:00 [place] risk 11:30: [id number] 00 Nutrition nutritional Nutrition Resolve 2019-08-03 Anisha restriction d - 13:00:00 [place] s 11:30: [id number] 00 Neuro confusion Neuro/Emot Resolve 2019-08-03 Anisha present ion d 1- 13:00:00 [place] 11:30: [id number] 00 Neuro anxiety Neuro/Emot Resolve 2019-08-03 Anisha present ion d - 13:00:00 [place] 11:30: [id number] 00 Neuro impaired Neuro/Emot Resolve 2019-08-03 Anisha decision-ma ion d 08-03 13:00:00 [place] lionel 11:30: [id number] 00 Activity ADL Activity Resolve 2019-08-03 Anisha assistance d - 13:00:00 [place] required 11:30: [id number] 00 Activity self-care Activity Resolve 2019-08-03 Anisha deficit d - 13:00:00 [place] 11:30: [id number] 00 Safety fall risk Safety Resolve 2019-08-03 Anisha factor d 08-03 13:00:00 [place] present 11:30: [id number] 00 Safety can be left Safety Resolve 2019-08-03 Anisha alone for d 08-03 13:00:00 [place] only short 11:30: [id number] periods 00 Safety risk for Safety Resolve 2019-08-03 Anisha hospitaliza d - 13:00:00 [place] tion 11:30: [id number] 00 Medication oral med Meds Resolve 2019-08-03 Anisha assistance d - 13:00:00 [place] required 11:30: [id number] 00 Medication injectable Meds Resolve 2019-08-03 Anisha med d - 13:00:00 [place] assistance 11:30: [id number] required 00 Medication knowledge/s Meds Resolve 2019-08-03 Anisha kill d - 13:00:00 [place] deficit: pt 11:30: [id number] 00 Musculoskel transfer Musculoske Resolve 2019-08-03 Anisha etal assistance letal d 08-03 13:00:00 [place] required 11:30: [id number] 00 Musculoskel requires Musculoske Resolve 2019-08-03 Anisha etal human letal d 08-03 13:00:00 [place] assist to 11:30: [id number] leave home 00 Musculoskel requires Musculoske Resolve 2019-08-03 Anisha etal special letal d 08-03 13:00:00 [place] transportat 11:30: [id number] ion 00 Allergies, Adverse Reactions, Alerts Allergy [...] Shallish Unknown Unknown Solostar Solostar 08-03 [place] POLO U-100 U-100 Insulin 100 Insulin 100 unit/mL [...]
--- OUTSIDE RECORDS SUMMARY | 2019-10-15 10:52 | XMS REPORT ---
:1950 Author Organization [facility] Care Team Providers Name Role [...] Result Comments Laboratory Studies 2019-03-08 12:13:00 Identifier [id number] Result Time Unknown 2019-03-08 12:13:00 Test Item Value Reference Range Comments Unknown (test code = 2339-0) 312 mg/dL Unknown 70-100 F Ordering Physician UnknownLaboratory Cztdmfw3314-97-47 06:25:00Identifier 57188- 6 Result Time 2019-03-08 06:25:00Unknown Test Item Value Reference Range Comments Unknown (test code = 2951-2) 136 mmol/L Unknown 135-145 F Ordering Physician UnknownLaboratory Mdwnmnp8683-18-68 06:25:00Identifier 70564- 6 Result Time 2019-03-08 06:25:00Unknown Test Item Value Reference Range Comments Unknown (test code = 2823-3) 3.7 mmol/L Unknown 3.5-5.0 F Ordering Physician UnknownLaboratory Guasovb5218-44-24 06:25:00Identifier 06088- 6 Result Time 2019-03-08 06:25:00Unknown Test Item Value Reference Range Comments Unknown (test code = 2345-7) 175 mg/dL Unknown 70-100 F Ordering Physician UnknownLaboratory Qthpmhv6025-19-09 06:25:00Identifier 70801- 6 Result Time 2019-03-08 06:25:00Unknown Test Item Value Reference Range Comments Unknown (test code = 48704-7) 49.4 Unknown Unknown F Ordering Physician UnknownLaboratory Zqesnzy7362-54-93 06:25:00Identifier 91765- 6 Result Time 2019-03-08 06:25:00Unknown Test Item Value Reference Range Comments Unknown (test code = NullTestCode) 59.8 Unknown Unknown F Ordering Physician UnknownLaboratory Jloaded6981-75-72 06:25:00Identifier 17231- 6 Result Time 2019-03-08 06:25:00Unknown Test Item Value Reference Range Comments Unknown (test code = 2160-0) 1.42 mg/dL Unknown 0.67-1.17 F Ordering Physician UnknownLaboratory Runyasr7351-55-19 06:25:00Identifier 75794- 6 Result Time 2019-03-08 06:25:00Unknown Test Item Value Reference Range Comments Unknown (test code = 2075-0) 97 mmol/L Unknown 101-111 F Ordering Physician UnknownLaboratory Hbovnbj0153-27-44 06:25:00Identifier 94571- 6 Result Time 2019-03-08 06:25:00Unknown Test Item Value Reference Range Comments Unknown (test code = 2028-9) 33 mmol/L Unknown 22-32 F Ordering Physician UnknownLaboratory Cflqron2886-64-35 06:25:00Identifier 75354- 6 Result Time 2019-03-08 06:25:00Unknown Test Item Value Reference Range Comments Unknown (test code = 27711-0) 9.6 mg/dL Unknown 8.6-10.3 F Ordering Physician UnknownLaboratory Ejrqydw4715-17-82 06:25:00Identifier 54111- 6 Result Time 2019-03-08 06:25:00Unknown Test Item Value Reference Range Comments Unknown (test code = 3094-0) 28 mg/dL Unknown 6-24 F Ordering Physician UnknownLaboratory Rmkujmy6784-14-21 06:25:00Identifier 05899- 6 Result Time 2019-03-08 06:25:00Unknown Test Item Value Reference Range Comments Unknown (test code = 3097-3) 19.7 Unknown 8-20 F Ordering Physician UnknownLaboratory Yegqxsi6378-42-43 06:25:00Identifier 94719- 6 Result Time 2019-03-08 06:25:00Unknown Test Item Value Reference Range Comments Unknown (test code = 65604-9) 6 mmol/L Unknown 2-11 F Ordering Physician UnknownLaboratory Ujxadiy6260-92-20 06:25:00Identifier 18505- 6 Result Time 2019-03-08 06:25:00Unknown Test Item Value Reference Range Comments Unknown (test code = 99174-7) 7.7 10^3/uL Unknown 3.5-10.8 F Ordering Physician UnknownLaboratory Kwbiogy4940-09-32 06:25:00Identifier 57885- 6 Result Time 2019-03-08 06:25:00Unknown Test Item Value Reference Range Comments Unknown (test code = 788-0) 15 % Unknown 10-15 F Ordering Physician UnknownLaboratory Ozqzzcs2828-47-47 06:25:00Identifier 05192- 6 Result Time 2019-03-08 06:25:00Unknown Test Item Value Reference Range Comments Unknown (test code = 789-8) 3.94 10^6 /uL Unknown 4.18-5.48 F Ordering Physician UnknownLaboratory Jzatxdo7705-93-39 06:25:00Identifier 87214- 6 Result Time 2019-03-08 06:25:00Unknown Test Item Value Reference Range Comments Unknown (test code = 777-3) 164 10^3/uL Unknown 150-450 F Ordering Physician UnknownLaboratory Uioewoq4470-24-83 06:25:00Identifier 40344- 6 Result Time 2019-03-08 06:25:00Unknown Test Item Value Reference Range Comments Unknown (test code = 82061-7) 7.8 fL Unknown 7.4-10.4 F Ordering Physician UnknownLaboratory Ryfiecp5993-13-10 06:25:00Identifier 61220- 6 Result Time 2019-03-08 06:25:00Unknown Test Item Value Reference Range Comments Unknown (test code = 787-2) 81 fL Unknown 80-94 F Ordering Physician UnknownLaboratory Sissxim2520-95-84 06:25:00Identifier 78098- 6 Result Time 2019-03-08 06:25:00Unknown Test Item Value Reference Range Comments Unknown (test code = 786-4) 34 g/dL Unknown 31-36 F Ordering Physician UnknownLaboratory Plxfhun5855-68-00 06:25:00Identifier 74184- 6 Result Time 2019-03-08 06:25:00Unknown Test Item Value Reference Range Comments Unknown (test code = 785-6) 27 pg Unknown 27-31 F Ordering Physician UnknownLaboratory Ylxycav1529-92-56 06:25:00Identifier 58152- 6 Result Time 2019-03-08 06:25:00Unknown Test Item Value Reference Range Comments Unknown (test code = 718-7) 10.8 g/dL Unknown 14.0-18.0 F Ordering Physician UnknownLaboratory Ycshzko4813-66-79 06:25:00Identifier 69250- 6 Result Time 2019-03-08 06:25:00Unknown Test Item Value Reference Range Comments Unknown (test code = 4544-3) 32 % Unknown 42-52 F Ordering Physician UnknownLaboratory Bzhtugi2884-65-38 06:45:00Identifier 63346- 6 Result Time 2019-03-06 06:45:00Unknown Test Item Value Reference Range Comments Unknown (test code = 2777-1) 3.3 mg/dL Unknown 2.5-5.0 F Ordering Physician UnknownLaboratory Rbihoek1339-48-03 06:45:00Identifier 11681- 6 Result Time 2019-03-06 06:45:00Unknown Test Item Value Reference Range Comments Unknown (test code = 27150-4) 2.1 mg/dL Unknown 1.9-2.7 F Ordering Physician UnknownLaboratory Qimxiks1301-26-63 13:59:00Identifier 56709- 6 Result Time 2019-03-04 13:59:00Unknown Test Item Value Reference Range Comments Unknown (test code = NullTestCode) Unknown Unknown F Ordering Physician UnknownLaboratory Tzpswfz9511-43-18 13:59:00Identifier 49207- 6 Result Time 2019-03-04 13:59:00Unknown Test Item Value Reference Range Comments Unknown (test code = 3034-6) 203 mg/dL Unknown 203-362 F Ordering Physician UnknownLaboratory Rezkmqn1565-87-40 13:59:00Identifier 04740- 6 Result Time 2019-03-04 13:59:00Unknown Test Item Value Reference Range Comments Unknown (test code = 2500-7) 284 mcg/dL Unknown 250-450 F Ordering Physician UnknownLaboratory Ihwcpre7356-94-48 13:59:00Identifier 46930- 6 Result Time 2019-03-04 13:59:00Unknown Test Item Value Reference Range Comments Unknown (test code = NullTestCode) 13 % Unknown 15-55 F Ordering Physician UnknownLaboratory Ftstntj7743-21-49 13:59:00Identifier 71921- 6 Result Time 2019-03-04 13:59:00Unknown Test Item Value Reference Range Comments Unknown (test code = 2498-4) 36 ug/dL Unknown 50-212 F Ordering Physician UnknownLaboratory Wqgfhrx0372-79-50 17:35:00Identifier 13324- 6 Result Time 2019-03-01 17:35:00Unknown Test Item Value Reference Range Comments Unknown (test code = 2132-9) 866 pg/mL Unknown 180-914 F Ordering Physician UnknownLaboratory Sjbfody6109-78-58 17:35:00Identifier 25903- 6 Result Time 2019-03-01 17:35:00Unknown Test Item Value Reference Range Comments Unknown (test code = 3053-6) 51 ng/dL Unknown 87-178 F Ordering Physician UnknownLaboratory Ljsvuxz0333-20-09 17:35:00Identifier 50604- 6 Result Time 2019-03-01 17:35:00Unknown Test Item Value Reference Range Comments Unknown (test code = 3051-0) 3.10 pg/mL Unknown 2.5-3.9 F Ordering Physician UnknownLaboratory Dradsjm6394-59-14 17:35:00Identifier 02992- 6 Result Time 2019-03-01 17:35:00Unknown Test Item Value Reference Range Comments Unknown (test code = 3024-7) 0.86 ng/dL Unknown 0.61-1.12 F Ordering Physician UnknownLaboratory Pwksfkh9606-16-28 17:35:00Identifier 81884- 6 Result Time 2019-03-01 17:35:00Unknown Test Item Value Reference Range Comments Unknown (test code = 2157-6) 52 U/L Unknown 10-223 F Ordering Physician UnknownLaboratory Bupmsoh2954-67-23 17:35:00Identifier 73720- 6 Result Time 2019-03-01 17:35:00Unknown Test Item Value Reference Range Comments Unknown (test code = 66552-4) 41 mcmol/L Unknown 16-53 F Ordering Physician UnknownLaboratory Wvdpulj2556-02-29 16:21:00Identifier 86390- 6 Result Time 2019-03-01 16:21:00Unknown Test Item Value Reference Range Comments Unknown (test code = 73596-6) 0.10 ng/mL Unknown Unknown F Ordering Physician UnknownLaboratory Ycfqspx1074-31-22 05:20:00Identifier 88743- 6 Result Time 2019-03-01 05:20:00Unknown Test Item Value Reference Range Comments Unknown (test code = 74445-8) 0.0 Unknown Unknown F Ordering Physician UnknownLaboratory Aydqegj6730-96-45 05:20:00Identifier 64126- 6 Result Time 2019-03-01 05:20:00Unknown Test Item Value Reference Range Comments Unknown (test code = 771-6) 0.0 10^3/ul Unknown Unknown F Ordering Physician UnknownLaboratory Cxjwtff9540-64-26 05:20:00Identifier 07889- 6 Result Time 2019-03-01 05:20:00Unknown Test Item Value Reference Range Comments Unknown (test code = 770-8) 92.0 % Unknown Unknown F Ordering Physician UnknownLaboratory Vohshmb0385-12-04 05:20:00Identifier 00699- 6 Result Time 2019-03-01 05:20:00Unknown Test Item Value Reference Range Comments Unknown (test code = 5905-5) 1.8 % Unknown Unknown F Ordering Physician UnknownLaboratory Srqvqks0863-15-55 05:20:00Identifier 99984- 6 Result Time 2019-03-01 05:20:00Unknown Test Item Value Reference Range Comments Unknown (test code = 736-9) 6.0 % Unknown Unknown F Ordering Physician UnknownLaboratory Snuamkl3927-83-41 05:20:00Identifier 64156- 6 Result Time 2019-03-01 05:20:00Unknown Test Item Value Reference Range Comments Unknown (test code = 713-8) 0.0 % Unknown Unknown F Ordering Physician UnknownLaboratory Msbhlih3134-31-88 05:20:00Identifier 95071- 6 Result Time 2019-03-01 05:20:00Unknown Test Item Value Reference Range Comments Unknown (test code = 706-2) 0.2 % Unknown Unknown F Ordering Physician UnknownLaboratory Hextdob2256-50-32 05:20:00Identifier 65827- 6 Result Time 2019-03-01 05:20:00Unknown Test Item Value Reference Range Comments Unknown (test code = ITH5323) 7.0 10^3/ul Unknown 1.5-7.7 F Ordering Physician UnknownLaboratory Knifcfm3542-31-12 05:20:00Identifier 77219- 6 Result Time 2019-03-01 05:20:00Unknown Test Item Value Reference Range Comments Unknown (test code = 742-7) 0.1 10^3/ul Unknown 0-0.8 F Ordering Physician UnknownLaboratory Bntmsbi2515-26-36 05:20:00Identifier 82769- 6 Result Time 2019-03-01 05:20:00Unknown Test Item Value Reference Range Comments Unknown (test code = 731-0) 0.5 10^3/ul Unknown 1.0-4.8 F Ordering Physician UnknownLaboratory Kdvftzi4709-19-03 05:20:00Identifier 60977- 6 Result Time 2019-03-01 05:20:00Unknown Test Item Value Reference Range Comments Unknown (test code = 711-2) 0.0 10^3/ul Unknown 0-0.6 F Ordering Physician UnknownLaboratory Ybdgquy2604-92-11 05:20:00Identifier 70908- 6 Result Time 2019-03-01 05:20:00Unknown Test Item Value Reference Range Comments Unknown (test code = 704-7) 0.0 10^3/ul Unknown 0-0.2 F Ordering Physician UnknownLaboratory Nsqpftq4829-08-29 01:05:00Identifier 57438- 6 Result Time 2019-03-01 01:05:00Unknown Test Item Value Reference Range Comments Unknown (test code = 2744-1) 7.37 Unknown 7.35-7.45 F Ordering Physician UnknownLaboratory Allguvz8504-92-55 01:05:00Identifier 29385- 6 Result Time 2019-03-01 01:05:00Unknown Test Item Value Reference Range Comments Unknown (test code = 43715-5) 211 mmHg Unknown 80-100 F Ordering Physician UnknownLaboratory Tvczzcx9528-64-89 01:05:00Identifier 92446- 6 Result Time 2019-03-01 01:05:00Unknown Test Item Value Reference Range Comments Unknown (test code = NullTestCode) 51 mmHg Unknown 35-45 F Ordering Physician UnknownLaboratory Jlsatox0333-34-69 01:05:00Identifier 78118- 6 Result Time 2019-03-01 01:05:00Unknown Test Item Value Reference Range Comments Unknown (test code = 2708-6) 99.9 % Unknown 94.0-98.0 F Ordering Physician UnknownLaboratory Gkcgtph1803-40-54 01:05:00Identifier 80086- 6 Result Time 2019-03-01 01:05:00Unknown Test Item Value Reference Range Comments Unknown (test code = 1960-4) 27.4 mmol/L Unknown 19-31 F Ordering Physician UnknownLaboratory Aqryubj1595-66-70 01:05:00Identifier 00008- 6 Result Time 2019-03-01 01:05:00Unknown Test Item Value Reference Range Comments Unknown (test code = 1925-7) 3.1 mmol/L Unknown -2.0-2.0 F Ordering Physician UnknownLaboratory Ichqyij0303-05-45 01:05:00Identifier 67581- 6 Result Time 2019-03-01 01:05:00Unknown Test Item Value Reference Range Comments Unknown (test code = NullTestCode) 80 Unknown Unknown F Ordering Physician UnknownLaboratory Tmqfleg6145-41-56 01:05:00Identifier 54409- 6 Result Time 2019-03-01 01:05:00Unknown Test Item Value Reference Range Comments Unknown (test code = NullTestCode) 500 Unknown Unknown F Ordering Physician UnknownLaboratory Pubdopk1184-41-07 01:05:00Identifier 06706- 6 Result Time 2019-03-01 01:05:00Unknown Test Item Value Reference Range Comments Unknown (test code = NullTestCode) 15 Unknown Unknown F Ordering Physician UnknownLaboratory Ponwbhx8391-89-01 01:05:00Identifier 96658- 6 Result Time 2019-03-01 01:05:00Unknown Test Item Value Reference Range Comments Unknown (test code = NullTestCode) 5 Unknown Unknown F Ordering Physician UnknownLaboratory Hwvixku8579-50-59 20:56:00Identifier 41179- 6 Result Time 2019-02-28 20:56:00Unknown Test Item Value Reference Range Comments Unknown (test code = 3016-3) 1.25 mcIU/mL Unknown 0.34-5.60 F Ordering Physician UnknownLaboratory Meydfgx3509-28-49 20:56:00Identifier 12111- 6 Result Time 2019-02-28 20:56:00Unknown Test Item Value Reference Range Comments Unknown (test code = 2885-2) 7.0 g/dL Unknown 6.4-8.9 F Ordering Physician UnknownLaboratory Bkzghkw3980-86-22 20:56:00Identifier 57782- 6 Result Time 2019-02-28 20:56:00Unknown Test Item Value Reference Range Comments Unknown (test code = 1975-2) 0.50 mg/dL Unknown 0.2-1.0 F Ordering Physician UnknownLaboratory Anssaoj9655-62-59 20:56:00Identifier 49430- 6 Result Time 2019-02-28 20:56:00Unknown Test Item Value Reference Range Comments Unknown (test code = NullTestCode) 3.4 g/dL Unknown 2-4 F Ordering Physician UnknownLaboratory Fqyvmqn8062-44-02 20:56:00Identifier 71436- 6 Result Time 2019-02-28 20:56:00Unknown Test Item Value Reference Range Comments Unknown (test code = 1988-5) 64.61 mg/L Unknown 0-8.00 F Ordering Physician UnknownLaboratory Ypljsiy9863-95-02 20:56:00Identifier 87542- 6 Result Time 2019-02-28 20:56:00Unknown Test Item Value Reference Range Comments Unknown (test code = 1920-8) 16 U/L Unknown 13-39 F Ordering Physician UnknownLaboratory Epjsagb5178-24-78 20:56:00Identifier 74311- 6 Result Time 2019-02-28 20:56:00Unknown Test Item Value Reference Range Comments Unknown (test code = 6768-6) 60 U/L Unknown 34-104 F Ordering Physician UnknownLaboratory Kjwmecg0804-62-56 20:56:00Identifier 92233- 6 Result Time 2019-02-28 20:56:00Unknown Test Item Value Reference Range Comments Unknown (test code = 1759-0) 1.1 Unknown 1-3 F Ordering Physician UnknownLaboratory Mhwfcha2234-15-84 20:56:00Identifier 89389- 6 Result Time 2019-02-28 20:56:00Unknown Test Item Value Reference Range Comments Unknown (test code = 38844-1) 3.6 g/dL Unknown 3.2-5.2 F Ordering Physician UnknownLaboratory Llxyxyo4582-33-68 20:56:00Identifier 41407- 6 Result Time 2019-02-28 20:56:00Unknown Test Item Value Reference Range Comments Unknown (test code = 1742-6) 11 U/L Unknown 7-52 F Ordering Physician UnknownLaboratory Wsljdip8161-68-22 20:56:00Identifier 11638- 6 Result Time 2019-02-28 20:56:00Unknown Test Item Value Reference Range Comments Unknown (test code = 43982-8) 224 pg/mL Unknown Unknown F Ordering Physician UnknownLaboratory Gnwhulb1308-93-45 20:56:00Identifier 11111- 6 Result Time 2019-02-28 20:56:00Unknown Test Item Value Reference Range Comments Unknown (test code = 2524-7) 1.4 mmol/L Unknown 0.5-2.0 F Ordering Physician UnknownLaboratory Chputhb0740-49-28 20:56:00Identifier 10205- 6 Result Time 2019-02-28 20:56:00Unknown Test Item Value Reference Range Comments Unknown (test code = 28368-2) 1.12 Unknown 0.82-1.09 F Ordering Physician UnknownLaboratory Qrankol8756-11-00 20:56:00Identifier 26247- 6 Result Time 2019-02-28 20:56:00Unknown Test Item Value Reference Range Comments Unknown (test code = 40704-1) 36.2 seconds Unknown 26.0-38.0 F Ordering Physician UnknownLaboratory Rxtwtwh2674-43-04 20:49:00Identifier 45197- 6 Result Time 2019-02-28 20:49:00Unknown Test Item Value Reference Range Comments Unknown (test code = NullTestCode) 6.0 Unknown 5-9 F Ordering Physician UnknownLaboratory Eozwhgj1447-49-58 20:49:00Identifier 59974- 6 Result Time 2019-02-28 20:49:00Unknown Test Item Value Reference Range Comments Unknown (test code = 74880-9) 1.008 Unknown 1.010-1.030 F Ordering Physician UnknownLaboratory Loqwufh3295-18-52 17:41:00Identifier 99147- 6 Result Time 2019-02-28 17:41:00Unknown Test Item Value Reference Range Comments Unknown (test code = 2746-6) 7.38 Unknown 7.32-7.43 F Ordering Physician UnknownLaboratory Vjtgnvo4312-91-57 17:41:00Identifier 87875- 6 Result Time 2019-02-28 17:41:00Unknown Test Item Value Reference Range Comments Unknown (test code = 2705-2) 51.0 mmHg Unknown 35-45 F Ordering Physician UnknownLaboratory Ycpqtuc7982-93-77 17:41:00Identifier 43932- 6 Result Time 2019-02-28 17:41:00Unknown Test Item Value Reference Range Comments Unknown (test code = 2021-4) 61 mmHg Unknown 41-51 F Ordering Physician UnknownLaboratory Ogpbmkh0403-01-21 17:41:00Identifier 38827- 6 Result Time 2019-02-28 17:41:00Unknown Test Item Value Reference Range Comments Unknown (test code = 37392-9) 86.2 % Unknown 70-80 F Ordering Physician UnknownLaboratory Oqhtraj1575-18-77 17:41:00Identifier 85611- 6 Result Time 2019-02-28 17:41:00Unknown Test Item Value Reference Range Comments Unknown (test code = NullTestCode) 31.3 mmol/L Unknown 24-28 F Ordering Physician UnknownLaboratory Yvmrjql4366-39-48 17:41:00Identifier 08974- 6 Result Time 2019-02-28 17:41:00Unknown Test Item Value Reference Range Comments Unknown (test code = NullTestCode) 8.7 mmol/L Unknown 0.0-4.0 F Ordering Physician UnknownLaboratory Hwrglwv5497-00-87 08:40:00Identifier 23616- 6 Result Time 2019-02-10 08:40:00Unknown Test Item Value Reference Range Comments Unknown (test code = 4537-7) 68 mm/Hr Unknown 0-19 F Ordering Physician Unknown
--- OUTSIDE RECORDS SUMMARY | 2019-10-15 10:52 | XMS REPORT ---
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 08-01 Graves pulmonary pulmonary [id number] disease, disease, unspecified unspecified Hypertensiv Hypertensiv Diagnosis Active Patrice e heart and e heart and 08-01 Graves chronic chronic [id number] kidney kidney disease disease with heart with heart failure and failure and stage 1 stage 1 through through stage 4 stage 4 chronic chronic kidney kidney disease, or disease, or unspecified unspecified chronic chronic kidney kidney disease disease Chronic Chronic Diagnosis Active Patrice diastolic diastolic 08-01 Graves (congestive (congestive [id number] ) heart ) heart failure failure 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 08-01 Graves mellitus mellitus [id number] with with diabetic diabetic chronic chronic kidney kidney disease disease Chronic Chronic Diagnosis Active Brent kidney kidney 08-01 Graves disease, disease, [id number] stage 3 stage 3 (moderate) (moderate) 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 without without angina angina pectoris pectoris 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 mellitus mellitus [id number] with with diabetic diabetic peripheral peripheral angiopathy angiopathy without without gangrene gangrene Rheumatoid Rheumatoid Diagnosis Active Patrice arthritis, arthritis, Graves unspecified unspecified [id number] 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 mellitus mellitus [id number] with with diabetic diabetic polyneuropa polyneuropa thy thy Major Major Diagnosis Active Brent depressive depressive Graves disorder, disorder, [id number] single single episode, episode, unspecified unspecified 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 [id number] Unspecified Unspecified Diagnosis Active Patrice osteoarthri osteoarthri Graves tis, tis, [id number] unspecified unspecified site site Personal Personal Diagnosis Active Patrice history of history of Graves pneumonia pneumonia [id number] (recurrent) (recurrent) Presence of Presence of Diagnosis Active 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 [id number] graft graft Presence of Presence of Diagnosis Active Patrice cardiac cardiac Graves pacemaker pacemaker [id number] watermaster watermaster Diagnosis Active Patrice (current) (current) Graves use of use of [id number] aspirin aspirin watermaster FDC Diagnosis Active Patrice (current) (current) Graves use of use of [id number] insulin insulin watermaster watermaster Diagnosis Active Patrice (current) (current) Graves use of use of [id number] inhaled inhaled steroids steroids 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 [id number] toe(s) toe(s) 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 Graves other right other right [id number] toe(s) toe(s) Dependence Dependence Diagnosis Active Patrice on on Graves wheelchair wheelchair [id number] Pain frequent Pain Mgmt Resolve 2019-08-03 Anisha pain d - 13:00:00 Sedan 11:30: [id number] Cardio edema Cardiovasc Resolve 2019-08-03 Anisha ular d 1- 13:00:00 Sedan 11:30: [id number] 00 Respiratory dyspnea Respirator Resolve 2019-08-03 Anisha present y d - 13:00:00 Kirstin 11:30: [id number] 00 Respiratory oxygen Respirator Resolve 2019-08-03 Anisha treatments y d 1- 13:00:00 Kirstin in home 11:30: [id number] 00 Endo/Nhan diabetic Endo/Nhan Resolve 2019-08-03 Anisha foot care d 1- 13:00:00 Kirstin 11:30: [id number] 00 Endo/Nhan anti-coagul Endo/Nhan Resolve 2019-08-03 Anisha ation d - 13:00:00 Sedan therapy 11:30: [id number] 00 Integument skin Integument Resolve 2019-08-03 Anisha integrity d 1-03 13:00:00 Sedan risk 11:30: [id number] 00 Nutrition nutritional Nutrition Resolve 2019-08-03 Anisha restriction d - 13:00:00 Sedan s 11:30: [id number] 00 Neuro confusion Neuro/Emot Resolve 2019-08-03 Anisha present ion d 1- 13:00:00 Kirstin 11:30: [id number] 00 Neuro anxiety Neuro/Emot Resolve 2019-08-03 Anisha present ion d - 13:00:00 Sedan 11:30: [id number] 00 Neuro impaired Neuro/Emot Resolve 2019-08-03 Anisha decision-ma ion d 08-03 13:00:00 Sedan lionel 11:30: [id number] 00 Activity ADL Activity Resolve 2019-08-03 Anisha assistance d - 13:00:00 Sedan required 11:30: [id number] 00 Activity self-care Activity Resolve 2019-08-03 Anisha deficit d - 13:00:00 Sedan 11:30: [id number] 00 Safety fall risk Safety Resolve 2019-08-03 Anisha factor d 08-03 13:00:00 Sedan present 11:30: [id number] 00 Safety can be left Safety Resolve 2019-08-03 Anisha alone for d 08-03 13:00:00 Kirstin only short 11:30: [id number] periods 00 Safety risk for Safety Resolve 2019-08-03 Anisha hospitaliza d - 13:00:00 Sedan tion 11:30: [id number] 00 Medication oral med Meds Resolve 2019-08-03 Anisha assistance d - 13:00:00 Kirstin required 11:30: [id number] 00 Medication injectable Meds Resolve 2019-08-03 Anisha med d - 13:00:00 Sedan assistance 11:30: [id number] required 00 Medication knowledge/s Meds Resolve 2019-08-03 Anisha kill d - 13:00:00 Sedan deficit: pt 11:30: [id number] 00 Musculoskel transfer Musculoske Resolve 2019-08-03 Anisha etal assistance letal d 08-03 13:00:00 Kirstin required 11:30: [id number] 00 Musculoskel requires Musculoske Resolve 2019-08-03 Anisha etal human letal d 08-03 13:00:00 Kirstin assist to 11:30: [id number] leave home 00 Musculoskel requires Musculoske Resolve 2019-08-03 Anisha etal special letal d 08-03 13:00:00 Sedan transportat 11:30: [id number] ion 00 Allergies, Adverse Reactions, Alerts Allergy [...]
--- OUTSIDE RECORDS SUMMARY | 2019-10-15 10:52 | XMS REPORT ---
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 08-01 Graves pulmonary pulmonary [id number] disease, disease, unspecified unspecified Hypertensiv Hypertensiv Diagnosis Active Patrice e heart and e heart and 08-01 Graves chronic chronic [id number] kidney kidney disease disease with heart with heart failure and failure and stage 1 stage 1 through through stage 4 stage 4 chronic chronic kidney kidney disease, or disease, or unspecified unspecified chronic chronic kidney kidney disease disease Chronic Chronic Diagnosis Active Patrice diastolic diastolic 08-01 Graves (congestive (congestive [id number] ) heart ) heart failure failure 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 08-01 Graves mellitus mellitus [id number] with with diabetic diabetic chronic chronic kidney kidney disease disease Chronic Chronic Diagnosis Active Solon kidney kidney 08-01 Graves disease, disease, [id number] stage 3 stage 3 (moderate) (moderate) 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 [id number] [place] coronary coronary artery artery without without angina angina pectoris pectoris 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 mellitus mellitus [id number] with with diabetic diabetic peripheral peripheral angiopathy angiopathy without without gangrene gangrene Rheumatoid Rheumatoid Diagnosis Active Patrice arthritis, arthritis, Graves unspecified unspecified [id number] 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 mellitus mellitus [id number] with with diabetic diabetic polyneuropa polyneuropa thy thy Major Major Diagnosis Active Solon depressive depressive Graves disorder, disorder, [id number] single single episode, episode, unspecified unspecified 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 [id number] Unspecified Unspecified Diagnosis Active Patrice osteoarthri osteoarthri Graves tis, tis, [id number] unspecified unspecified site site Personal Personal Diagnosis Active Patrice history of history of Graves pneumonia pneumonia [id number] (recurrent) (recurrent) Presence of Presence of Diagnosis Active 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 [id number] graft graft Presence of Presence of Diagnosis Active Patrice cardiac cardiac Graves pacemaker pacemaker [id number] 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 Patrice (current) (current) Graves use of use of [id number] aspirin aspirin 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 Patrice (current) (current) Graves use of use of [id number] insulin insulin 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 Diagnosis Active Patrice (current) (current) Graves use of use of [id number] inhaled inhaled steroids steroids 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 [id number] toe(s) toe(s) 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 Graves other right other right [id number] toe(s) toe(s) Dependence Dependence Diagnosis Active Patrice on on Graves wheelchair wheelchair [id number] Pain frequent Pain Mgmt Resolve 2019-08-03 Anisha pain d - 13:00:00 Kirstin 11:30: [id number] 00 Cardio edema Cardiovasc Resolve 2019-08-03 Anisha ular d 1- 13:00:00 Noel 11:30: [id number] 00 Respiratory dyspnea Respirator Resolve 2019-08-03 Anisha present y d - 13:00:00 Noel 11:30: [id number] 00 Respiratory oxygen Respirator Resolve 2019-08-03 Anisha treatments y d 1- 13:00:00 Noel in home 11:30: [id number] 00 Endo/Nhan diabetic Endo/Nhan Resolve 2019-08-03 Anisha foot care d 1- 13:00:00 Kirstin 11:30: [id number] 00 Endo/Nhan anti-coagul Endo/Nhan Resolve 2019-08-03 Anisha ation d - 13:00:00 Noel therapy 11:30: [id number] 00 Integument skin Integument Resolve 2019-08-03 Anisha integrity d 1-03 13:00:00 Kirstin risk 11:30: [id number] 00 Nutrition nutritional Nutrition Resolve 2019-08-03 Anisha restriction d - 13:00:00 Noel s 11:30: [id number] 00 Neuro confusion Neuro/Emot Resolve 2019-08-03 Anisha present ion d 1- 13:00:00 Kirstin 11:30: [id number] 00 Neuro anxiety Neuro/Emot Resolve 2019-08-03 Anisha present ion d - 13:00:00 Noel 11:30: [id number] 00 Neuro impaired Neuro/Emot Resolve 2019-08-03 Anisha decision-ma ion d 08-03 13:00:00 Noel lionel 11:30: [id number] 00 Activity ADL Activity Resolve 2019-08-03 Anisha assistance d - 13:00:00 Noel required 11:30: [id number] 00 Activity self-care Activity Resolve 2019-08-03 Anisha deficit d - 13:00:00 Noel 11:30: [id number] 00 Safety fall risk Safety Resolve 2019-08-03 Anisha factor d 08-03 13:00:00 Noel present 11:30: [id number] 00 Safety can be left Safety Resolve 2019-08-03 Anisha alone for d 08-03 13:00:00 Noel only short 11:30: [id number] periods 00 Safety risk for Safety Resolve 2019-08-03 Anisha hospitaliza d - 13:00:00 Kirstin tion 11:30: [id number] 00 Medication oral med Meds Resolve 2019-08-03 Anisha assistance d - 13:00:00 Kirstin required 11:30: [id number] 00 Medication injectable Meds Resolve 2019-08-03 Anisha med d - 13:00:00 Kirstin assistance 11:30: [id number] required 00 Medication knowledge/s Meds Resolve 2019-08-03 Anisha kill d - 13:00:00 Kirstin deficit: pt 11:30: [id number] 00 Musculoskel transfer Musculoske Resolve 2019-08-03 Anisha etal assistance letal d 08-03 13:00:00 Noel required 11:30: [id number] 00 Musculoskel requires Musculoske Resolve 2019-08-03 Anisha etal human letal d 08-03 13:00:00 Noel assist to 11:30: [id number] leave home 00 Musculoskel requires Musculoske Resolve 2019-08-03 Anisha etal special letal d 08-03 13:00:00 Noel transportat 11:30: [id number] ion 00 Allergies, Adverse Reactions, Alerts Allergy [...]
--- OUTSIDE RECORDS SUMMARY | 2019-10-15 10:52 | XMS REPORT ---
:1950 Author Organization [facility] Care Team Providers Name Role Phone Unavailable [...] Result Comments Laboratory Studies 2019-03-08 12:13:00 Identifier [id number] Result Time Unknown 2019-03-08 12:13:00 Test Item Value Reference Range Comments Unknown (test code = 2339-0) 312 mg/dL Unknown 70-100 F Ordering Physician UnknownLaboratory Zhihwuu0064-15-38 06:25:00Identifier 80952- 6 Result Time 2019-03-08 06:25:00Unknown Test Item Value Reference Range Comments Unknown (test code = 2951-2) 136 mmol/L Unknown 135-145 F Ordering Physician UnknownLaboratory Tqbukai7731-34-52 06:25:00Identifier 50463- 6 Result Time 2019-03-08 06:25:00Unknown Test Item Value Reference Range Comments Unknown (test code = 2823-3) 3.7 mmol/L Unknown 3.5-5.0 F Ordering Physician UnknownLaboratory Sfgxfmo1829-56-57 06:25:00Identifier 72536- 6 Result Time 2019-03-08 06:25:00Unknown Test Item Value Reference Range Comments Unknown (test code = 2345-7) 175 mg/dL Unknown 70-100 F Ordering Physician UnknownLaboratory Idwkpju1219-51-42 06:25:00Identifier 74385- 6 Result Time 2019-03-08 06:25:00Unknown Test Item Value Reference Range Comments Unknown (test code = 34903-1) 49.4 Unknown Unknown F Ordering Physician UnknownLaboratory Ooznkpi6418-34-35 06:25:00Identifier 65606- 6 Result Time 2019-03-08 06:25:00Unknown Test Item Value Reference Range Comments Unknown (test code = NullTestCode) 59.8 Unknown Unknown F Ordering Physician UnknownLaboratory Ixnqsnz3522-60-79 06:25:00Identifier 52003- 6 Result Time 2019-03-08 06:25:00Unknown Test Item Value Reference Range Comments Unknown (test code = 2160-0) 1.42 mg/dL Unknown 0.67-1.17 F Ordering Physician UnknownLaboratory Rauanti7708-76-79 06:25:00Identifier 25156- 6 Result Time 2019-03-08 06:25:00Unknown Test Item Value Reference Range Comments Unknown (test code = 2075-0) 97 mmol/L Unknown 101-111 F Ordering Physician UnknownLaboratory Sqxmyfb4227-00-04 06:25:00Identifier 89459- 6 Result Time 2019-03-08 06:25:00Unknown Test Item Value Reference Range Comments Unknown (test code = 2028-9) 33 mmol/L Unknown 22-32 F Ordering Physician UnknownLaboratory Yovepnf0367-67-97 06:25:00Identifier 29360- 6 Result Time 2019-03-08 06:25:00Unknown Test Item Value Reference Range Comments Unknown (test code = 06469-7) 9.6 mg/dL Unknown 8.6-10.3 F Ordering Physician UnknownLaboratory Gxikqei1471-43-75 06:25:00Identifier 07695- 6 Result Time 2019-03-08 06:25:00Unknown Test Item Value Reference Range Comments Unknown (test code = 3094-0) 28 mg/dL Unknown 6-24 F Ordering Physician UnknownLaboratory Gytgklc1459-52-47 06:25:00Identifier 33802- 6 Result Time 2019-03-08 06:25:00Unknown Test Item Value Reference Range Comments Unknown (test code = 3097-3) 19.7 Unknown 8-20 F Ordering Physician UnknownLaboratory Lenkcdu5897-01-66 06:25:00Identifier 11983- 6 Result Time 2019-03-08 06:25:00Unknown Test Item Value Reference Range Comments Unknown (test code = 91285-8) 6 mmol/L Unknown 2-11 F Ordering Physician UnknownLaboratory Janbujw4502-54-41 06:25:00Identifier 17969- 6 Result Time 2019-03-08 06:25:00Unknown Test Item Value Reference Range Comments Unknown (test code = 94605-3) 7.7 10^3/uL Unknown 3.5-10.8 F Ordering Physician UnknownLaboratory Vvhsnog1587-06-86 06:25:00Identifier 33777- 6 Result Time 2019-03-08 06:25:00Unknown Test Item Value Reference Range Comments Unknown (test code = 788-0) 15 % Unknown 10-15 F Ordering Physician UnknownLaboratory Tmmbwso2370-35-85 06:25:00Identifier 15916- 6 Result Time 2019-03-08 06:25:00Unknown Test Item Value Reference Range Comments Unknown (test code = 789-8) 3.94 10^6 /uL Unknown 4.18-5.48 F Ordering Physician UnknownLaboratory Berkltp9956-52-80 06:25:00Identifier 54392- 6 Result Time 2019-03-08 06:25:00Unknown Test Item Value Reference Range Comments Unknown (test code = 777-3) 164 10^3/uL Unknown 150-450 F Ordering Physician UnknownLaboratory Gvfgiyz5433-24-96 06:25:00Identifier 09972- 6 Result Time 2019-03-08 06:25:00Unknown Test Item Value Reference Range Comments Unknown (test code = 05872-1) 7.8 fL Unknown 7.4-10.4 F Ordering Physician UnknownLaboratory Vwsftre6231-32-31 06:25:00Identifier 12498- 6 Result Time 2019-03-08 06:25:00Unknown Test Item Value Reference Range Comments Unknown (test code = 787-2) 81 fL Unknown 80-94 F Ordering Physician UnknownLaboratory Etauasd0912-65-19 06:25:00Identifier 58499- 6 Result Time 2019-03-08 06:25:00Unknown Test Item Value Reference Range Comments Unknown (test code = 786-4) 34 g/dL Unknown 31-36 F Ordering Physician UnknownLaboratory Euvzhmp9214-80-72 06:25:00Identifier 28599- 6 Result Time 2019-03-08 06:25:00Unknown Test Item Value Reference Range Comments Unknown (test code = 785-6) 27 pg Unknown 27-31 F Ordering Physician UnknownLaboratory Qdymfbh2773-92-89 06:25:00Identifier 15944- 6 Result Time 2019-03-08 06:25:00Unknown Test Item Value Reference Range Comments Unknown (test code = 718-7) 10.8 g/dL Unknown 14.0-18.0 F Ordering Physician UnknownLaboratory Ojikjgl2625-90-73 06:25:00Identifier 95684- 6 Result Time 2019-03-08 06:25:00Unknown Test Item Value Reference Range Comments Unknown (test code = 4544-3) 32 % Unknown 42-52 F Ordering Physician UnknownLaboratory Twqwtza3974-83-78 06:45:00Identifier 74827- 6 Result Time 2019-03-06 06:45:00Unknown Test Item Value Reference Range Comments Unknown (test code = 2777-1) 3.3 mg/dL Unknown 2.5-5.0 F Ordering Physician UnknownLaboratory Nqfaols6641-19-45 06:45:00Identifier 10319- 6 Result Time 2019-03-06 06:45:00Unknown Test Item Value Reference Range Comments Unknown (test code = 93750-8) 2.1 mg/dL Unknown 1.9-2.7 F Ordering Physician UnknownLaboratory Bzrvalc1294-53-37 13:59:00Identifier 51985- 6 Result Time 2019-03-04 13:59:00Unknown Test Item Value Reference Range Comments Unknown (test code = NullTestCode) Unknown Unknown F Ordering Physician UnknownLaboratory Mqhpxtx1516-82-05 13:59:00Identifier 28224- 6 Result Time 2019-03-04 13:59:00Unknown Test Item Value Reference Range Comments Unknown (test code = 3034-6) 203 mg/dL Unknown 203-362 F Ordering Physician UnknownLaboratory Qqvofrg8101-87-50 13:59:00Identifier 08168- 6 Result Time 2019-03-04 13:59:00Unknown Test Item Value Reference Range Comments Unknown (test code = 2500-7) 284 mcg/dL Unknown 250-450 F Ordering Physician UnknownLaboratory Jhlgfwk9921-25-31 13:59:00Identifier 92520- 6 Result Time 2019-03-04 13:59:00Unknown Test Item Value Reference Range Comments Unknown (test code = NullTestCode) 13 % Unknown 15-55 F Ordering Physician UnknownLaboratory Xsnwilt0077-74-80 13:59:00Identifier 71629- 6 Result Time 2019-03-04 13:59:00Unknown Test Item Value Reference Range Comments Unknown (test code = 2498-4) 36 ug/dL Unknown 50-212 F Ordering Physician UnknownLaboratory Dltudby2255-83-19 17:35:00Identifier 27044- 6 Result Time 2019-03-01 17:35:00Unknown Test Item Value Reference Range Comments Unknown (test code = 2132-9) 866 pg/mL Unknown 180-914 F Ordering Physician UnknownLaboratory Gjvjhbj6974-93-98 17:35:00Identifier 38767- 6 Result Time 2019-03-01 17:35:00Unknown Test Item Value Reference Range Comments Unknown (test code = 3053-6) 51 ng/dL Unknown 87-178 F Ordering Physician UnknownLaboratory Tmconyp7888-45-06 17:35:00Identifier 67760- 6 Result Time 2019-03-01 17:35:00Unknown Test Item Value Reference Range Comments Unknown (test code = 3051-0) 3.10 pg/mL Unknown 2.5-3.9 F Ordering Physician UnknownLaboratory Iropuvc9851-16-95 17:35:00Identifier 74942- 6 Result Time 2019-03-01 17:35:00Unknown Test Item Value Reference Range Comments Unknown (test code = 3024-7) 0.86 ng/dL Unknown 0.61-1.12 F Ordering Physician UnknownLaboratory Uikgfdp0220-74-67 17:35:00Identifier 53565- 6 Result Time 2019-03-01 17:35:00Unknown Test Item Value Reference Range Comments Unknown (test code = 2157-6) 52 U/L Unknown 10-223 F Ordering Physician UnknownLaboratory Tijwujl1177-68-49 17:35:00Identifier 43827- 6 Result Time 2019-03-01 17:35:00Unknown Test Item Value Reference Range Comments Unknown (test code = 96413-3) 41 mcmol/L Unknown 16-53 F Ordering Physician UnknownLaboratory Dvthtfr6711-33-17 16:21:00Identifier 47617- 6 Result Time 2019-03-01 16:21:00Unknown Test Item Value Reference Range Comments Unknown (test code = 27124-3) 0.10 ng/mL Unknown Unknown F Ordering Physician UnknownLaboratory Sqjgvef4028-05-52 05:20:00Identifier 41102- 6 Result Time 2019-03-01 05:20:00Unknown Test Item Value Reference Range Comments Unknown (test code = 75163-2) 0.0 Unknown Unknown F Ordering Physician UnknownLaboratory Nkfqfra5313-81-50 05:20:00Identifier 50638- 6 Result Time 2019-03-01 05:20:00Unknown Test Item Value Reference Range Comments Unknown (test code = 771-6) 0.0 10^3/ul Unknown Unknown F Ordering Physician UnknownLaboratory Geybojf6836-75-14 05:20:00Identifier 27381- 6 Result Time 2019-03-01 05:20:00Unknown Test Item Value Reference Range Comments Unknown (test code = 770-8) 92.0 % Unknown Unknown F Ordering Physician UnknownLaboratory Rsidgja5113-24-14 05:20:00Identifier 29599- 6 Result Time 2019-03-01 05:20:00Unknown Test Item Value Reference Range Comments Unknown (test code = 5905-5) 1.8 % Unknown Unknown F Ordering Physician UnknownLaboratory Whbiozv1399-42-83 05:20:00Identifier 20466- 6 Result Time 2019-03-01 05:20:00Unknown Test Item Value Reference Range Comments Unknown (test code = 736-9) 6.0 % Unknown Unknown F Ordering Physician UnknownLaboratory Zdrhrsv8692-58-65 05:20:00Identifier 55450- 6 Result Time 2019-03-01 05:20:00Unknown Test Item Value Reference Range Comments Unknown (test code = 713-8) 0.0 % Unknown Unknown F Ordering Physician UnknownLaboratory Luexlgb8889-06-39 05:20:00Identifier 69905- 6 Result Time 2019-03-01 05:20:00Unknown Test Item Value Reference Range Comments Unknown (test code = 706-2) 0.2 % Unknown Unknown F Ordering Physician UnknownLaboratory Eesftvq4776-10-43 05:20:00Identifier 88410- 6 Result Time 2019-03-01 05:20:00Unknown Test Item Value Reference Range Comments Unknown (test code = TMU9350) 7.0 10^3/ul Unknown 1.5-7.7 F Ordering Physician UnknownLaboratory Hbytbgh4112-64-90 05:20:00Identifier 60848- 6 Result Time 2019-03-01 05:20:00Unknown Test Item Value Reference Range Comments Unknown (test code = 742-7) 0.1 10^3/ul Unknown 0-0.8 F Ordering Physician UnknownLaboratory Rdgrkdr5862-10-68 05:20:00Identifier 65134- 6 Result Time 2019-03-01 05:20:00Unknown Test Item Value Reference Range Comments Unknown (test code = 731-0) 0.5 10^3/ul Unknown 1.0-4.8 F Ordering Physician UnknownLaboratory Quwztak8204-26-83 05:20:00Identifier 50897- 6 Result Time 2019-03-01 05:20:00Unknown Test Item Value Reference Range Comments Unknown (test code = 711-2) 0.0 10^3/ul Unknown 0-0.6 F Ordering Physician UnknownLaboratory Zhywjrx8466-08-99 05:20:00Identifier 16612- 6 Result Time 2019-03-01 05:20:00Unknown Test Item Value Reference Range Comments Unknown (test code = 704-7) 0.0 10^3/ul Unknown 0-0.2 F Ordering Physician UnknownLaboratory Frxenzs5800-06-53 01:05:00Identifier 06120- 6 Result Time 2019-03-01 01:05:00Unknown Test Item Value Reference Range Comments Unknown (test code = 2744-1) 7.37 Unknown 7.35-7.45 F Ordering Physician UnknownLaboratory Giugonf8087-40-56 01:05:00Identifier 49573- 6 Result Time 2019-03-01 01:05:00Unknown Test Item Value Reference Range Comments Unknown (test code = 94897-9) 211 mmHg Unknown 80-100 F Ordering Physician UnknownLaboratory Aglbmxp0783-54-16 01:05:00Identifier 13491- 6 Result Time 2019-03-01 01:05:00Unknown Test Item Value Reference Range Comments Unknown (test code = NullTestCode) 51 mmHg Unknown 35-45 F Ordering Physician UnknownLaboratory Ekdcmel2225-52-12 01:05:00Identifier 84955- 6 Result Time 2019-03-01 01:05:00Unknown Test Item Value Reference Range Comments Unknown (test code = 2708-6) 99.9 % Unknown 94.0-98.0 F Ordering Physician UnknownLaboratory Lwrcyps4177-78-43 01:05:00Identifier 49150- 6 Result Time 2019-03-01 01:05:00Unknown Test Item Value Reference Range Comments Unknown (test code = 1960-4) 27.4 mmol/L Unknown 19-31 F Ordering Physician UnknownLaboratory Erhexqf5362-82-36 01:05:00Identifier 14773- 6 Result Time 2019-03-01 01:05:00Unknown Test Item Value Reference Range Comments Unknown (test code = 1925-7) 3.1 mmol/L Unknown -2.0-2.0 F Ordering Physician UnknownLaboratory Txobbpc6562-41-45 01:05:00Identifier 82042- 6 Result Time 2019-03-01 01:05:00Unknown Test Item Value Reference Range Comments Unknown (test code = NullTestCode) 80 Unknown Unknown F Ordering Physician UnknownLaboratory Gzfmcnx8216-03-55 01:05:00Identifier 28436- 6 Result Time 2019-03-01 01:05:00Unknown Test Item Value Reference Range Comments Unknown (test code = NullTestCode) 500 Unknown Unknown F Ordering Physician UnknownLaboratory Hwxfguh6125-04-46 01:05:00Identifier 83927- 6 Result Time 2019-03-01 01:05:00Unknown Test Item Value Reference Range Comments Unknown (test code = NullTestCode) 15 Unknown Unknown F Ordering Physician UnknownLaboratory Pkienhx5657-16-47 01:05:00Identifier 73666- 6 Result Time 2019-03-01 01:05:00Unknown Test Item Value Reference Range Comments Unknown (test code = NullTestCode) 5 Unknown Unknown F Ordering Physician UnknownLaboratory Bgtsfjn0761-04-34 20:56:00Identifier 12418- 6 Result Time 2019-02-28 20:56:00Unknown Test Item Value Reference Range Comments Unknown (test code = 3016-3) 1.25 mcIU/mL Unknown 0.34-5.60 F Ordering Physician UnknownLaboratory Dacjjea6308-44-41 20:56:00Identifier 20900- 6 Result Time 2019-02-28 20:56:00Unknown Test Item Value Reference Range Comments Unknown (test code = 2885-2) 7.0 g/dL Unknown 6.4-8.9 F Ordering Physician UnknownLaboratory Kgqmpjd8585-67-23 20:56:00Identifier 52814- 6 Result Time 2019-02-28 20:56:00Unknown Test Item Value Reference Range Comments Unknown (test code = 1975-2) 0.50 mg/dL Unknown 0.2-1.0 F Ordering Physician UnknownLaboratory Meukxck3069-47-49 20:56:00Identifier 83045- 6 Result Time 2019-02-28 20:56:00Unknown Test Item Value Reference Range Comments Unknown (test code = NullTestCode) 3.4 g/dL Unknown 2-4 F Ordering Physician UnknownLaboratory Fdpgqpq8592-66-54 20:56:00Identifier 26139- 6 Result Time 2019-02-28 20:56:00Unknown Test Item Value Reference Range Comments Unknown (test code = 1988-5) 64.61 mg/L Unknown 0-8.00 F Ordering Physician UnknownLaboratory Pbgrdbf5136-80-84 20:56:00Identifier 08143- 6 Result Time 2019-02-28 20:56:00Unknown Test Item Value Reference Range Comments Unknown (test code = 1920-8) 16 U/L Unknown 13-39 F Ordering Physician UnknownLaboratory Rmmjaet8077-40-34 20:56:00Identifier 25358- 6 Result Time 2019-02-28 20:56:00Unknown Test Item Value Reference Range Comments Unknown (test code = 6768-6) 60 U/L Unknown 34-104 F Ordering Physician UnknownLaboratory Lxlrrqa5900-76-77 20:56:00Identifier 29671- 6 Result Time 2019-02-28 20:56:00Unknown Test Item Value Reference Range Comments Unknown (test code = 1759-0) 1.1 Unknown 1-3 F Ordering Physician UnknownLaboratory Nduucqp4331-03-40 20:56:00Identifier 16133- 6 Result Time 2019-02-28 20:56:00Unknown Test Item Value Reference Range Comments Unknown (test code = 84953-6) 3.6 g/dL Unknown 3.2-5.2 F Ordering Physician UnknownLaboratory Ppjjwkx0112-39-47 20:56:00Identifier 20089- 6 Result Time 2019-02-28 20:56:00Unknown Test Item Value Reference Range Comments Unknown (test code = 1742-6) 11 U/L Unknown 7-52 F Ordering Physician UnknownLaboratory Pkjfgth9404-78-80 20:56:00Identifier 40986- 6 Result Time 2019-02-28 20:56:00Unknown Test Item Value Reference Range Comments Unknown (test code = 00580-6) 224 pg/mL Unknown Unknown F Ordering Physician UnknownLaboratory Qvrgdvw4787-34-09 20:56:00Identifier 16012- 6 Result Time 2019-02-28 20:56:00Unknown Test Item Value Reference Range Comments Unknown (test code = 2524-7) 1.4 mmol/L Unknown 0.5-2.0 F Ordering Physician UnknownLaboratory Gnjniwd7928-20-57 20:56:00Identifier 01238- 6 Result Time 2019-02-28 20:56:00Unknown Test Item Value Reference Range Comments Unknown (test code = 55427-9) 1.12 Unknown 0.82-1.09 F Ordering Physician UnknownLaboratory Qjlrdsx8875-99-77 20:56:00Identifier 30906- 6 Result Time 2019-02-28 20:56:00Unknown Test Item Value Reference Range Comments Unknown (test code = 97300-3) 36.2 seconds Unknown 26.0-38.0 F Ordering Physician UnknownLaboratory Hjgrqjp7740-44-09 20:49:00Identifier 06036- 6 Result Time 2019-02-28 20:49:00Unknown Test Item Value Reference Range Comments Unknown (test code = NullTestCode) 6.0 Unknown 5-9 F Ordering Physician UnknownLaboratory Vovnzwr2890-51-94 20:49:00Identifier 47066- 6 Result Time 2019-02-28 20:49:00Unknown Test Item Value Reference Range Comments Unknown (test code = 36976-9) 1.008 Unknown 1.010-1.030 F Ordering Physician UnknownLaboratory Ztcrwih6818-40-07 17:41:00Identifier 39528- 6 Result Time 2019-02-28 17:41:00Unknown Test Item Value Reference Range Comments Unknown (test code = 2746-6) 7.38 Unknown 7.32-7.43 F Ordering Physician UnknownLaboratory Eqfrukj3105-32-99 17:41:00Identifier 45276- 6 Result Time 2019-02-28 17:41:00Unknown Test Item Value Reference Range Comments Unknown (test code = 2705-2) 51.0 mmHg Unknown 35-45 F Ordering Physician UnknownLaboratory Rqfzzmj3470-97-30 17:41:00Identifier 33216- 6 Result Time 2019-02-28 17:41:00Unknown Test Item Value Reference Range Comments Unknown (test code = 2021-4) 61 mmHg Unknown 41-51 F Ordering Physician UnknownLaboratory Adwzegb9069-90-28 17:41:00Identifier 72233- 6 Result Time 2019-02-28 17:41:00Unknown Test Item Value Reference Range Comments Unknown (test code = 46312-8) 86.2 % Unknown 70-80 F Ordering Physician UnknownLaboratory Jiwazet2537-76-52 17:41:00Identifier 99273- 6 Result Time 2019-02-28 17:41:00Unknown Test Item Value Reference Range Comments Unknown (test code = NullTestCode) 31.3 mmol/L Unknown 24-28 F Ordering Physician UnknownLaboratory Jisaljf1587-41-18 17:41:00Identifier 56232- 6 Result Time 2019-02-28 17:41:00Unknown Test Item Value Reference Range Comments Unknown (test code = NullTestCode) 8.7 mmol/L Unknown 0.0-4.0 F Ordering Physician UnknownLaboratory Eqxnzhw0417-08-11 08:40:00Identifier 73058- 6 Result Time 2019-02-10 08:40:00Unknown Test Item Value Reference Range Comments Unknown (test code = 4537-7) 68 mm/Hr Unknown 0-19 F Ordering Physician Unknown
--- OUTSIDE RECORDS SUMMARY | 2019-10-15 10:52 | XMS REPORT ---
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 08-01 Graves pulmonary pulmonary [id number] disease, disease, unspecified unspecified Hypertensiv Hypertensiv Diagnosis Active Patrice e heart and e heart and 08-01 Graves chronic chronic [id number] kidney kidney disease disease with heart with heart failure and failure and stage 1 stage 1 through through stage 4 stage 4 chronic chronic kidney kidney disease, or disease, or unspecified unspecified chronic chronic kidney kidney disease disease Chronic Chronic Diagnosis Active Patrice diastolic diastolic 08-01 Graves (congestive (congestive [id number] ) heart ) heart failure failure 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 08-01 Graves mellitus mellitus [id number] with with diabetic diabetic chronic chronic kidney kidney disease disease Chronic Chronic Diagnosis Active [place] kidney kidney 08-01 Graves disease, disease, [id number] stage 3 stage 3 (moderate) (moderate) 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 without without angina angina pectoris pectoris 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 mellitus mellitus [id number] with with diabetic diabetic peripheral peripheral angiopathy angiopathy without without gangrene gangrene Rheumatoid Rheumatoid Diagnosis Active Patrice arthritis, arthritis, Graves unspecified unspecified [id number] 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 mellitus mellitus 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 with with diabetic diabetic polyneuropa polyneuropa thy thy Major Major Diagnosis Active [place] depressive depressive Graves disorder, disorder, [id number] single single episode, episode, unspecified unspecified 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 [place] myocardial myocardial Graves infarction infarction [id number] Unspecified Unspecified Diagnosis Active Patrice osteoarthri osteoarthri Graves tis, tis, [id number] unspecified unspecified site site Personal Personal Diagnosis Active Patrice history of history of Graves pneumonia pneumonia [id number] (recurrent) (recurrent) Presence of Presence of Diagnosis Active 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 [id number] graft graft Presence of Presence of Diagnosis Active Patrice cardiac cardiac Graves pacemaker pacemaker [id number] long term acute care registered nurse long term acute care registered nurse Diagnosis Active Patrice (current) (current) Graves use of use of [id number] aspirin aspirin long term acute care registered nurse longterm Diagnosis Active Patrice (current) (current) Graves use of use of [id number] insulin insulin long term acute care registered nurse long term acute care registered nurse Diagnosis Active Patrice (current) (current) Graves use of use of [id number] inhaled inhaled steroids steroids 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 [id number] toe(s) toe(s) 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 Graves other right other right [id number] toe(s) toe(s) Dependence Dependence Diagnosis Active Patrice on on Graves wheelchair wheelchair [id number] Pain frequent Pain Mgmt Resolve 2019-08-03 Anisha pain d - 13:00:00 [place] 11:30: [id number] 00 Cardio edema Cardiovasc Resolve 2019-08-03 Anisha ular d 1- 13:00:00 [place] 11:30: [id number] 00 Respiratory dyspnea Respirator Resolve 2019-08-03 Anisha present y d - 13:00:00 [place] 11:30: [id number] 00 Respiratory oxygen Respirator Resolve 2019-08-03 Anisha treatments y d 1- 13:00:00 [place] in home 11:30: [id number] 00 Endo/Nhan diabetic Endo/Nhan Resolve 2019-08-03 Anisha foot care d 1- 13:00:00 [place] 11:30: [id number] 00 Endo/Nhan anti-coagul Endo/Nhan Resolve 2019-08-03 Anisha ation d - 13:00:00 [place] therapy 11:30: [id number] 00 Integument skin Integument Resolve 2019-08-03 Anisha integrity d 1-03 13:00:00 [place] risk 11:30: [id number] 00 Nutrition nutritional Nutrition Resolve 2019-08-03 Anisha restriction d - 13:00:00 [place] s 11:30: [id number] 00 Neuro confusion Neuro/Emot Resolve 2019-08-03 Anisha present ion d 1- 13:00:00 [place] 11:30: [id number] 00 Neuro anxiety Neuro/Emot Resolve 2019-08-03 Anisha present ion d - 13:00:00 [place] 11:30: [id number] 00 Neuro impaired Neuro/Emot Resolve 2019-08-03 Anisha decision-ma ion d 08-03 13:00:00 [place] lionel 11:30: [id number] 00 Activity ADL Activity Resolve 2019-08-03 Anisha assistance d - 13:00:00 [place] required 11:30: [id number] 00 Activity self-care Activity Resolve 2019-08-03 Anisha deficit d - 13:00:00 [place] 11:30: [id number] 00 Safety fall risk Safety Resolve 2019-08-03 Anisha factor d 08-03 13:00:00 [place] present 11:30: [id number] 00 Safety can be left Safety Resolve 2019-08-03 Anisha alone for d 08-03 13:00:00 [place] only short 11:30: [id number] periods 00 Safety risk for Safety Resolve 2019-08-03 Anisha hospitaliza d - 13:00:00 [place] tion 11:30: [id number] 00 Medication oral med Meds Resolve 2019-08-03 Anisha assistance d - 13:00:00 [place] required 11:30: [id number] 00 Medication injectable Meds Resolve 2019-08-03 Anisha med d - 13:00:00 [place] assistance 11:30: [id number] required 00 Medication knowledge/s Meds Resolve 2019-08-03 Anisha kill d - 13:00:00 [place] deficit: pt 11:30: [id number] 00 Musculoskel transfer Musculoske Resolve 2019-08-03 Anisha etal assistance letal d 08-03 13:00:00 [place] required 11:30: [id number] 00 Musculoskel requires Musculoske Resolve 2019-08-03 Anisha etal human letal d 08-03 13:00:00 [place] assist to 11:30: [id number] leave home 00 Musculoskel requires Musculoske Resolve 2019-08-03 Anisha etal special letal d 08-03 13:00:00 [place] transportat 11:30: [id number] ion 00 Allergies, Adverse Reactions, Alerts Allergy [...]
--- OUTSIDE RECORDS SUMMARY | 2019-10-15 10:52 | XMS REPORT ---
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 08-01 Graves pulmonary pulmonary [id number] disease, disease, unspecified unspecified Hypertensiv Hypertensiv Diagnosis Active Patrice e heart and e heart and 08-01 Graves chronic chronic [id number] kidney kidney disease disease with heart with heart failure and failure and stage 1 stage 1 through through stage 4 stage 4 chronic chronic kidney kidney disease, or disease, or unspecified unspecified chronic chronic kidney kidney disease disease Chronic Chronic Diagnosis Active [place] diastolic diastolic 08-01 Graves (congestive (congestive [id number] ) heart ) heart failure failure 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 08-01 Graves mellitus mellitus [id number] with with diabetic diabetic chronic chronic kidney kidney disease disease Chronic Chronic Diagnosis Active Patrice kidney kidney 08-01 Graves disease, disease, [id number] stage 3 stage 3 (moderate) (moderate) 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 [id number] [place] coronary coronary artery artery without without angina angina pectoris pectoris 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 mellitus mellitus [id number] with with diabetic diabetic peripheral peripheral angiopathy angiopathy without without gangrene gangrene Rheumatoid Rheumatoid Diagnosis Active [place] arthritis, arthritis, Graves unspecified unspecified [id number] 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 mellitus mellitus [id number] with with diabetic diabetic polyneuropa polyneuropa thy thy Major Major Diagnosis Active [place] depressive depressive Graves disorder, disorder, [id number] single single episode, episode, unspecified unspecified 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 [id number] Unspecified Unspecified Diagnosis Active Patrice osteoarthri osteoarthri Graves tis, tis, [id number] unspecified unspecified site site Personal Personal Diagnosis Active Patrice history of history of Graves pneumonia pneumonia [id number] (recurrent) (recurrent) Presence of Presence of Diagnosis Active 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 [id number] graft graft Presence of Presence of Diagnosis Active Patrice cardiac cardiac Graves pacemaker pacemaker [id number] intermediate card tender intermediate card tender Diagnosis Active Patrice (current) (current) Graves use of use of [id number] aspirin aspirin intermediate card tender group home Diagnosis Active Patrice (current) (current) Graves use of use of [id number] insulin insulin intermediate card tender intermediate card tender Diagnosis Active Patrice (current) (current) Graves use of use of [id number] inhaled inhaled steroids steroids 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 [id number] toe(s) toe(s) 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 Graves other right other right [id number] toe(s) toe(s) Dependence Dependence Diagnosis Active Patrice on on Graves wheelchair wheelchair [id number] Pain frequent Pain Mgmt Resolve 2019-08-03 Anisha pain d - 13:00:00 [place] 11:30: [id number] 00 Cardio edema Cardiovasc Resolve 2019-08-03 Anisha ular d 1- 13:00:00 [place] 11:30: [id number] 00 Respiratory dyspnea Respirator Resolve 2019-08-03 Anisha present y d - 13:00:00 [place] 11:30: [id number] 00 Respiratory oxygen Respirator Resolve 2019-08-03 Anisha treatments y d 1- 13:00:00 [place] in home 11:30: [id number] 00 Endo/Nhan diabetic Endo/Nhan Resolve 2019-08-03 Anisha foot care d 1- 13:00:00 [place] 11:30: [id number] 00 Endo/Nhan anti-coagul Endo/Nhan Resolve 2019-08-03 Anisha ation d - 13:00:00 [place] therapy 11:30: [id number] 00 Integument skin Integument Resolve 2019-08-03 Anisha integrity d 1-03 13:00:00 [place] risk 11:30: [id number] 00 Nutrition nutritional Nutrition Resolve 2019-08-03 Anisha restriction d - 13:00:00 [place] s 11:30: [id number] 00 Neuro confusion Neuro/Emot Resolve 2019-08-03 Anisha present ion d 1- 13:00:00 [place] 11:30: [id number] 00 Neuro anxiety Neuro/Emot Resolve 2019-08-03 Anisha present ion d - 13:00:00 [place] 11:30: [id number] 00 Neuro impaired Neuro/Emot Resolve 2019-08-03 Anisha decision-ma ion d 08-03 13:00:00 [place] lionel 11:30: [id number] 00 Activity ADL Activity Resolve 2019-08-03 Anisha assistance d - 13:00:00 [place] required 11:30: [id number] 00 Activity self-care Activity Resolve 2019-08-03 Anisha deficit d - 13:00:00 [place] 11:30: [id number] 00 Safety fall risk Safety Resolve 2019-08-03 Anisha factor d 08-03 13:00:00 [place] present 11:30: [id number] 00 Safety can be left Safety Resolve 2019-08-03 Anisha alone for d 08-03 13:00:00 [place] only short 11:30: [id number] periods 00 Safety risk for Safety Resolve 2019-08-03 Anisha hospitaliza d - 13:00:00 [place] tion 11:30: [id number] 00 Medication oral med Meds Resolve 2019-08-03 Anisha assistance d - 13:00:00 [place] required 11:30: [id number] 00 Medication injectable Meds Resolve 2019-08-03 Anisha med d - 13:00:00 [place] assistance 11:30: [id number] required 00 Medication knowledge/s Meds Resolve 2019-08-03 Anisha kill d - 13:00:00 [place] deficit: pt 11:30: [id number] 00 Musculoskel transfer Musculoske Resolve 2019-08-03 Anisha etal assistance letal d 08-03 13:00:00 [place] required 11:30: [id number] 00 Musculoskel requires Musculoske Resolve 2019-08-03 Anisha etal human letal d 08-03 13:00:00 [place] assist to 11:30: [id number] leave home 00 Musculoskel requires Musculoske Resolve 2019-08-03 Naisha etal special letal d 08-03 13:00:00 [place] transportat 11:30: [id number] ion 00 Allergies, Adverse Reactions, Alerts Allergy [...] Unknown Unknown mg tablet mg tablet 08-03 MD,Edonte Spiriva Spiriva 0 2020- Yes Shallish Unknown [...]
--- OUTSIDE RECORDS SUMMARY | 2019-10-15 10:52 | XMS REPORT ---
:1950 Author Organization [facility] Care Team Providers Name Role Phone [...] Result Comments Laboratory Studies 2019-03-08 12:13:00 Identifier [id number] Result Time Unknown 2019-03-08 12:13:00 Test Item Value Reference Range Comments Unknown (test code = 2339-0) 312 mg/dL Unknown 70-100 F Ordering Physician UnknownLaboratory Gtpqomz8824-78-52 06:25:00Identifier 91301- 6 Result Time 2019-03-08 06:25:00Unknown Test Item Value Reference Range Comments Unknown (test code = 2951-2) 136 mmol/L Unknown 135-145 F Ordering Physician UnknownLaboratory Karztmf4682-33-00 06:25:00Identifier 22014- 6 Result Time 2019-03-08 06:25:00Unknown Test Item Value Reference Range Comments Unknown (test code = 2823-3) 3.7 mmol/L Unknown 3.5-5.0 F Ordering Physician UnknownLaboratory Wrqogqv6692-62-03 06:25:00Identifier 55301- 6 Result Time 2019-03-08 06:25:00Unknown Test Item Value Reference Range Comments Unknown (test code = 2345-7) 175 mg/dL Unknown 70-100 F Ordering Physician UnknownLaboratory Myveyoe6509-35-83 06:25:00Identifier 97101- 6 Result Time 2019-03-08 06:25:00Unknown Test Item Value Reference Range Comments Unknown (test code = 30037-7) 49.4 Unknown Unknown F Ordering Physician UnknownLaboratory Zscuttc8906-38-69 06:25:00Identifier 35000- 6 Result Time 2019-03-08 06:25:00Unknown Test Item Value Reference Range Comments Unknown (test code = NullTestCode) 59.8 Unknown Unknown F Ordering Physician UnknownLaboratory Ovnkgek2257-62-52 06:25:00Identifier 27270- 6 Result Time 2019-03-08 06:25:00Unknown Test Item Value Reference Range Comments Unknown (test code = 2160-0) 1.42 mg/dL Unknown 0.67-1.17 F Ordering Physician UnknownLaboratory Gyrrvfl6193-80-78 06:25:00Identifier 07659- 6 Result Time 2019-03-08 06:25:00Unknown Test Item Value Reference Range Comments Unknown (test code = 2075-0) 97 mmol/L Unknown 101-111 F Ordering Physician UnknownLaboratory Nnzciyj8241-35-80 06:25:00Identifier 97528- 6 Result Time 2019-03-08 06:25:00Unknown Test Item Value Reference Range Comments Unknown (test code = 2028-9) 33 mmol/L Unknown 22-32 F Ordering Physician UnknownLaboratory Evzdscr3537-17-76 06:25:00Identifier 22370- 6 Result Time 2019-03-08 06:25:00Unknown Test Item Value Reference Range Comments Unknown (test code = 53346-3) 9.6 mg/dL Unknown 8.6-10.3 F Ordering Physician UnknownLaboratory Qeglxfb9841-87-40 06:25:00Identifier 69514- 6 Result Time 2019-03-08 06:25:00Unknown Test Item Value Reference Range Comments Unknown (test code = 3094-0) 28 mg/dL Unknown 6-24 F Ordering Physician UnknownLaboratory Svwqcvx4847-60-75 06:25:00Identifier 80531- 6 Result Time 2019-03-08 06:25:00Unknown Test Item Value Reference Range Comments Unknown (test code = 3097-3) 19.7 Unknown 8-20 F Ordering Physician UnknownLaboratory Yltaqjh3342-25-91 06:25:00Identifier 68143- 6 Result Time 2019-03-08 06:25:00Unknown Test Item Value Reference Range Comments Unknown (test code = 15960-0) 6 mmol/L Unknown 2-11 F Ordering Physician UnknownLaboratory Iafswdp3054-56-30 06:25:00Identifier 00626- 6 Result Time 2019-03-08 06:25:00Unknown Test Item Value Reference Range Comments Unknown (test code = 70616-1) 7.7 10^3/uL Unknown 3.5-10.8 F Ordering Physician UnknownLaboratory Eaknrjc0117-99-22 06:25:00Identifier 21702- 6 Result Time 2019-03-08 06:25:00Unknown Test Item Value Reference Range Comments Unknown (test code = 788-0) 15 % Unknown 10-15 F Ordering Physician UnknownLaboratory Ptwsdls4934-85-91 06:25:00Identifier 56696- 6 Result Time 2019-03-08 06:25:00Unknown Test Item Value Reference Range Comments Unknown (test code = 789-8) 3.94 10^6 /uL Unknown 4.18-5.48 F Ordering Physician UnknownLaboratory Kwfktgv6890-04-15 06:25:00Identifier 61019- 6 Result Time 2019-03-08 06:25:00Unknown Test Item Value Reference Range Comments Unknown (test code = 777-3) 164 10^3/uL Unknown 150-450 F Ordering Physician UnknownLaboratory Uwkagjr9384-63-18 06:25:00Identifier 89604- 6 Result Time 2019-03-08 06:25:00Unknown Test Item Value Reference Range Comments Unknown (test code = 29860-7) 7.8 fL Unknown 7.4-10.4 F Ordering Physician UnknownLaboratory Cwkolmf3179-35-36 06:25:00Identifier 83269- 6 Result Time 2019-03-08 06:25:00Unknown Test Item Value Reference Range Comments Unknown (test code = 787-2) 81 fL Unknown 80-94 F Ordering Physician UnknownLaboratory Bbtzmgk7861-39-26 06:25:00Identifier 33186- 6 Result Time 2019-03-08 06:25:00Unknown Test Item Value Reference Range Comments Unknown (test code = 786-4) 34 g/dL Unknown 31-36 F Ordering Physician UnknownLaboratory Gbajiji6313-53-54 06:25:00Identifier 16840- 6 Result Time 2019-03-08 06:25:00Unknown Test Item Value Reference Range Comments Unknown (test code = 785-6) 27 pg Unknown 27-31 F Ordering Physician UnknownLaboratory Efqhydg9873-49-96 06:25:00Identifier 51327- 6 Result Time 2019-03-08 06:25:00Unknown Test Item Value Reference Range Comments Unknown (test code = 718-7) 10.8 g/dL Unknown 14.0-18.0 F Ordering Physician UnknownLaboratory Mwkuveu1718-14-52 06:25:00Identifier 61787- 6 Result Time 2019-03-08 06:25:00Unknown Test Item Value Reference Range Comments Unknown (test code = 4544-3) 32 % Unknown 42-52 F Ordering Physician UnknownLaboratory Rdiidsy3191-96-26 06:45:00Identifier 84979- 6 Result Time 2019-03-06 06:45:00Unknown Test Item Value Reference Range Comments Unknown (test code = 2777-1) 3.3 mg/dL Unknown 2.5-5.0 F Ordering Physician UnknownLaboratory Naewlow9738-81-74 06:45:00Identifier 42145- 6 Result Time 2019-03-06 06:45:00Unknown Test Item Value Reference Range Comments Unknown (test code = 05261-3) 2.1 mg/dL Unknown 1.9-2.7 F Ordering Physician UnknownLaboratory Tlkpzzj0755-02-20 13:59:00Identifier 71633- 6 Result Time 2019-03-04 13:59:00Unknown Test Item Value Reference Range Comments Unknown (test code = NullTestCode) Unknown Unknown F Ordering Physician UnknownLaboratory Ebevgwf4569-07-76 13:59:00Identifier 10343- 6 Result Time 2019-03-04 13:59:00Unknown Test Item Value Reference Range Comments Unknown (test code = 3034-6) 203 mg/dL Unknown 203-362 F Ordering Physician UnknownLaboratory Pflrzke1953-86-30 13:59:00Identifier 97174- 6 Result Time 2019-03-04 13:59:00Unknown Test Item Value Reference Range Comments Unknown (test code = 2500-7) 284 mcg/dL Unknown 250-450 F Ordering Physician UnknownLaboratory Hyquhdr8327-22-58 13:59:00Identifier 64268- 6 Result Time 2019-03-04 13:59:00Unknown Test Item Value Reference Range Comments Unknown (test code = NullTestCode) 13 % Unknown 15-55 F Ordering Physician UnknownLaboratory Ofgwixd4412-72-86 13:59:00Identifier 55267- 6 Result Time 2019-03-04 13:59:00Unknown Test Item Value Reference Range Comments Unknown (test code = 2498-4) 36 ug/dL Unknown 50-212 F Ordering Physician UnknownLaboratory Htdqxbn1012-60-00 17:35:00Identifier 06868- 6 Result Time 2019-03-01 17:35:00Unknown Test Item Value Reference Range Comments Unknown (test code = 2132-9) 866 pg/mL Unknown 180-914 F Ordering Physician UnknownLaboratory Qvgebmp8368-41-58 17:35:00Identifier 21750- 6 Result Time 2019-03-01 17:35:00Unknown Test Item Value Reference Range Comments Unknown (test code = 3053-6) 51 ng/dL Unknown 87-178 F Ordering Physician UnknownLaboratory Hsvjyfb3437-70-35 17:35:00Identifier 37662- 6 Result Time 2019-03-01 17:35:00Unknown Test Item Value Reference Range Comments Unknown (test code = 3051-0) 3.10 pg/mL Unknown 2.5-3.9 F Ordering Physician UnknownLaboratory Bihjtll9899-46-85 17:35:00Identifier 43673- 6 Result Time 2019-03-01 17:35:00Unknown Test Item Value Reference Range Comments Unknown (test code = 3024-7) 0.86 ng/dL Unknown 0.61-1.12 F Ordering Physician UnknownLaboratory Nlsueja7582-56-95 17:35:00Identifier 00436- 6 Result Time 2019-03-01 17:35:00Unknown Test Item Value Reference Range Comments Unknown (test code = 2157-6) 52 U/L Unknown 10-223 F Ordering Physician UnknownLaboratory Lwrvvrj8684-22-25 17:35:00Identifier 30447- 6 Result Time 2019-03-01 17:35:00Unknown Test Item Value Reference Range Comments Unknown (test code = 46147-4) 41 mcmol/L Unknown 16-53 F Ordering Physician UnknownLaboratory Zikevnt1520-95-02 16:21:00Identifier 91026- 6 Result Time 2019-03-01 16:21:00Unknown Test Item Value Reference Range Comments Unknown (test code = 18169-7) 0.10 ng/mL Unknown Unknown F Ordering Physician UnknownLaboratory Ijtydxb3674-74-02 05:20:00Identifier 77045- 6 Result Time 2019-03-01 05:20:00Unknown Test Item Value Reference Range Comments Unknown (test code = 25968-5) 0.0 Unknown Unknown F Ordering Physician UnknownLaboratory Fwtsgix2739-36-52 05:20:00Identifier 75138- 6 Result Time 2019-03-01 05:20:00Unknown Test Item Value Reference Range Comments Unknown (test code = 771-6) 0.0 10^3/ul Unknown Unknown F Ordering Physician UnknownLaboratory Anbkivv0628-83-50 05:20:00Identifier 56411- 6 Result Time 2019-03-01 05:20:00Unknown Test Item Value Reference Range Comments Unknown (test code = 770-8) 92.0 % Unknown Unknown F Ordering Physician UnknownLaboratory Nwqxxmb0394-98-34 05:20:00Identifier 23227- 6 Result Time 2019-03-01 05:20:00Unknown Test Item Value Reference Range Comments Unknown (test code = 5905-5) 1.8 % Unknown Unknown F Ordering Physician UnknownLaboratory Tgvhusj6276-94-33 05:20:00Identifier 28731- 6 Result Time 2019-03-01 05:20:00Unknown Test Item Value Reference Range Comments Unknown (test code = 736-9) 6.0 % Unknown Unknown F Ordering Physician UnknownLaboratory Kqtzfod0500-31-02 05:20:00Identifier 77523- 6 Result Time 2019-03-01 05:20:00Unknown Test Item Value Reference Range Comments Unknown (test code = 713-8) 0.0 % Unknown Unknown F Ordering Physician UnknownLaboratory Odedkto2276-74-26 05:20:00Identifier 57367- 6 Result Time 2019-03-01 05:20:00Unknown Test Item Value Reference Range Comments Unknown (test code = 706-2) 0.2 % Unknown Unknown F Ordering Physician UnknownLaboratory Gcmrdia8992-14-04 05:20:00Identifier 41374- 6 Result Time 2019-03-01 05:20:00Unknown Test Item Value Reference Range Comments Unknown (test code = IJW6848) 7.0 10^3/ul Unknown 1.5-7.7 F Ordering Physician UnknownLaboratory Opqytuv0893-58-94 05:20:00Identifier 06757- 6 Result Time 2019-03-01 05:20:00Unknown Test Item Value Reference Range Comments Unknown (test code = 742-7) 0.1 10^3/ul Unknown 0-0.8 F Ordering Physician UnknownLaboratory Cqqlgin2949-81-69 05:20:00Identifier 66932- 6 Result Time 2019-03-01 05:20:00Unknown Test Item Value Reference Range Comments Unknown (test code = 731-0) 0.5 10^3/ul Unknown 1.0-4.8 F Ordering Physician UnknownLaboratory Nrwgcwd9173-63-09 05:20:00Identifier 55764- 6 Result Time 2019-03-01 05:20:00Unknown Test Item Value Reference Range Comments Unknown (test code = 711-2) 0.0 10^3/ul Unknown 0-0.6 F Ordering Physician UnknownLaboratory Rnfujbn0148-40-25 05:20:00Identifier 36001- 6 Result Time 2019-03-01 05:20:00Unknown Test Item Value Reference Range Comments Unknown (test code = 704-7) 0.0 10^3/ul Unknown 0-0.2 F Ordering Physician UnknownLaboratory Kklqmwu0995-40-16 01:05:00Identifier 86450- 6 Result Time 2019-03-01 01:05:00Unknown Test Item Value Reference Range Comments Unknown (test code = 2744-1) 7.37 Unknown 7.35-7.45 F Ordering Physician UnknownLaboratory Xlxnmri8002-54-00 01:05:00Identifier 72128- 6 Result Time 2019-03-01 01:05:00Unknown Test Item Value Reference Range Comments Unknown (test code = 15444-3) 211 mmHg Unknown 80-100 F Ordering Physician UnknownLaboratory Vtjiflx2380-10-63 01:05:00Identifier 61388- 6 Result Time 2019-03-01 01:05:00Unknown Test Item Value Reference Range Comments Unknown (test code = NullTestCode) 51 mmHg Unknown 35-45 F Ordering Physician UnknownLaboratory Xsvgjhv2070-67-99 01:05:00Identifier 67912- 6 Result Time 2019-03-01 01:05:00Unknown Test Item Value Reference Range Comments Unknown (test code = 2708-6) 99.9 % Unknown 94.0-98.0 F Ordering Physician UnknownLaboratory Myknuyd2587-87-64 01:05:00Identifier 78193- 6 Result Time 2019-03-01 01:05:00Unknown Test Item Value Reference Range Comments Unknown (test code = 1960-4) 27.4 mmol/L Unknown 19-31 F Ordering Physician UnknownLaboratory Mxtbzdi3694-89-79 01:05:00Identifier 73199- 6 Result Time 2019-03-01 01:05:00Unknown Test Item Value Reference Range Comments Unknown (test code = 1925-7) 3.1 mmol/L Unknown -2.0-2.0 F Ordering Physician UnknownLaboratory Lawhpec7650-82-67 01:05:00Identifier 31628- 6 Result Time 2019-03-01 01:05:00Unknown Test Item Value Reference Range Comments Unknown (test code = NullTestCode) 80 Unknown Unknown F Ordering Physician UnknownLaboratory Ltymovq2088-76-87 01:05:00Identifier 35104- 6 Result Time 2019-03-01 01:05:00Unknown Test Item Value Reference Range Comments Unknown (test code = NullTestCode) 500 Unknown Unknown F Ordering Physician UnknownLaboratory Lcjxcww8009-03-55 01:05:00Identifier 58825- 6 Result Time 2019-03-01 01:05:00Unknown Test Item Value Reference Range Comments Unknown (test code = NullTestCode) 15 Unknown Unknown F Ordering Physician UnknownLaboratory Fthcqse0669-40-22 01:05:00Identifier 32531- 6 Result Time 2019-03-01 01:05:00Unknown Test Item Value Reference Range Comments Unknown (test code = NullTestCode) 5 Unknown Unknown F Ordering Physician UnknownLaboratory Jiwiugy5442-55-47 20:56:00Identifier 28498- 6 Result Time 2019-02-28 20:56:00Unknown Test Item Value Reference Range Comments Unknown (test code = 3016-3) 1.25 mcIU/mL Unknown 0.34-5.60 F Ordering Physician UnknownLaboratory Ihtknzw9964-59-59 20:56:00Identifier 63648- 6 Result Time 2019-02-28 20:56:00Unknown Test Item Value Reference Range Comments Unknown (test code = 2885-2) 7.0 g/dL Unknown 6.4-8.9 F Ordering Physician UnknownLaboratory Frxpsmp9585-47-08 20:56:00Identifier 51204- 6 Result Time 2019-02-28 20:56:00Unknown Test Item Value Reference Range Comments Unknown (test code = 1975-2) 0.50 mg/dL Unknown 0.2-1.0 F Ordering Physician UnknownLaboratory Khbzmtw5424-67-39 20:56:00Identifier 92479- 6 Result Time 2019-02-28 20:56:00Unknown Test Item Value Reference Range Comments Unknown (test code = NullTestCode) 3.4 g/dL Unknown 2-4 F Ordering Physician UnknownLaboratory Mguqfyl7996-60-35 20:56:00Identifier 06830- 6 Result Time 2019-02-28 20:56:00Unknown Test Item Value Reference Range Comments Unknown (test code = 1988-5) 64.61 mg/L Unknown 0-8.00 F Ordering Physician UnknownLaboratory Gjvvous3934-20-04 20:56:00Identifier 06383- 6 Result Time 2019-02-28 20:56:00Unknown Test Item Value Reference Range Comments Unknown (test code = 1920-8) 16 U/L Unknown 13-39 F Ordering Physician UnknownLaboratory Obizava8208-05-06 20:56:00Identifier 74948- 6 Result Time 2019-02-28 20:56:00Unknown Test Item Value Reference Range Comments Unknown (test code = 6768-6) 60 U/L Unknown 34-104 F Ordering Physician UnknownLaboratory Xnhwldl2029-55-76 20:56:00Identifier 47545- 6 Result Time 2019-02-28 20:56:00Unknown Test Item Value Reference Range Comments Unknown (test code = 1759-0) 1.1 Unknown 1-3 F Ordering Physician UnknownLaboratory Krybtte5487-48-93 20:56:00Identifier 09199- 6 Result Time 2019-02-28 20:56:00Unknown Test Item Value Reference Range Comments Unknown (test code = 28234-1) 3.6 g/dL Unknown 3.2-5.2 F Ordering Physician UnknownLaboratory Uinkaud6943-18-63 20:56:00Identifier 65525- 6 Result Time 2019-02-28 20:56:00Unknown Test Item Value Reference Range Comments Unknown (test code = 1742-6) 11 U/L Unknown 7-52 F Ordering Physician UnknownLaboratory Yimpedg3900-13-27 20:56:00Identifier 29334- 6 Result Time 2019-02-28 20:56:00Unknown Test Item Value Reference Range Comments Unknown (test code = 75411-7) 224 pg/mL Unknown Unknown F Ordering Physician UnknownLaboratory Ggfecnd3887-98-07 20:56:00Identifier 24243- 6 Result Time 2019-02-28 20:56:00Unknown Test Item Value Reference Range Comments Unknown (test code = 2524-7) 1.4 mmol/L Unknown 0.5-2.0 F Ordering Physician UnknownLaboratory Kmhrcas3725-84-30 20:56:00Identifier 68643- 6 Result Time 2019-02-28 20:56:00Unknown Test Item Value Reference Range Comments Unknown (test code = 10102-2) 1.12 Unknown 0.82-1.09 F Ordering Physician UnknownLaboratory Sosplgv2460-86-43 20:56:00Identifier 32106- 6 Result Time 2019-02-28 20:56:00Unknown Test Item Value Reference Range Comments Unknown (test code = 18212-5) 36.2 seconds Unknown 26.0-38.0 F Ordering Physician UnknownLaboratory Bpymwnl4377-66-47 20:49:00Identifier 76537- 6 Result Time 2019-02-28 20:49:00Unknown Test Item Value Reference Range Comments Unknown (test code = NullTestCode) 6.0 Unknown 5-9 F Ordering Physician UnknownLaboratory Ifvkdvs1112-98-23 20:49:00Identifier 72234- 6 Result Time 2019-02-28 20:49:00Unknown Test Item Value Reference Range Comments Unknown (test code = 19206-3) 1.008 Unknown 1.010-1.030 F Ordering Physician UnknownLaboratory Qfnctfi4948-55-80 17:41:00Identifier 61541- 6 Result Time 2019-02-28 17:41:00Unknown Test Item Value Reference Range Comments Unknown (test code = 2746-6) 7.38 Unknown 7.32-7.43 F Ordering Physician UnknownLaboratory Fikcrjg6057-21-69 17:41:00Identifier 67702- 6 Result Time 2019-02-28 17:41:00Unknown Test Item Value Reference Range Comments Unknown (test code = 2705-2) 51.0 mmHg Unknown 35-45 F Ordering Physician UnknownLaboratory Zqvduku9544-51-31 17:41:00Identifier 71144- 6 Result Time 2019-02-28 17:41:00Unknown Test Item Value Reference Range Comments Unknown (test code = 2021-4) 61 mmHg Unknown 41-51 F Ordering Physician UnknownLaboratory Amtjhsp9148-47-26 17:41:00Identifier 11417- 6 Result Time 2019-02-28 17:41:00Unknown Test Item Value Reference Range Comments Unknown (test code = 40078-9) 86.2 % Unknown 70-80 F Ordering Physician UnknownLaboratory Ngultcx2927-50-45 17:41:00Identifier 43763- 6 Result Time 2019-02-28 17:41:00Unknown Test Item Value Reference Range Comments Unknown (test code = NullTestCode) 31.3 mmol/L Unknown 24-28 F Ordering Physician UnknownLaboratory Trnreyt9982-49-02 17:41:00Identifier 96617- 6 Result Time 2019-02-28 17:41:00Unknown Test Item Value Reference Range Comments Unknown (test code = NullTestCode) 8.7 mmol/L Unknown 0.0-4.0 F Ordering Physician UnknownLaboratory Pnbisor7246-22-01 08:40:00Identifier 78922- 6 Result Time 2019-02-10 08:40:00Unknown Test Item Value Reference Range Comments Unknown (test code = 4537-7) 68 mm/Hr Unknown 0-19 F Ordering Physician Unknown
--- OUTSIDE RECORDS SUMMARY | 2019-10-15 10:52 | XMS REPORT ---
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 08-01 Graves pulmonary pulmonary [id number] disease, disease, unspecified unspecified Hypertensiv Hypertensiv Diagnosis Active Patrice e heart and e heart and 08-01 Graves chronic chronic [id number] kidney kidney disease disease with heart with heart failure and failure and stage 1 stage 1 through through stage 4 stage 4 chronic chronic kidney kidney disease, or disease, or unspecified unspecified chronic chronic kidney kidney disease disease Chronic Chronic Diagnosis Active Patrice diastolic diastolic 08-01 Graves (congestive (congestive [id number] ) heart ) heart failure failure 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 08-01 Graves mellitus mellitus [id number] with with diabetic diabetic chronic chronic kidney kidney disease disease Chronic Chronic Diagnosis Active Patrice kidney kidney 08-01 Graves disease, disease, [id number] stage 3 stage 3 (moderate) (moderate) 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 without without angina angina pectoris pectoris 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 mellitus mellitus [id number] with with diabetic diabetic peripheral peripheral angiopathy angiopathy without without gangrene gangrene Rheumatoid Rheumatoid Diagnosis Active Patrice arthritis, arthritis, Graves unspecified unspecified [id number] 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 mellitus mellitus [id number] with with diabetic diabetic polyneuropa polyneuropa thy thy Major Major Diagnosis Active [place] depressive depressive Graves disorder, disorder, [id number] single single episode, episode, unspecified unspecified 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 [place] myocardial myocardial Graves infarction infarction [id number] Unspecified Unspecified Diagnosis Active Patrice osteoarthri osteoarthri Graves tis, tis, [id number] unspecified unspecified site site Personal Personal Diagnosis Active Patrice history of history of Graves pneumonia pneumonia [id number] (recurrent) (recurrent) Presence of Presence of Diagnosis Active 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 [id number] graft graft Presence of Presence of Diagnosis Active Patrice cardiac cardiac Graves pacemaker pacemaker [id number] [employer]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 (current) (current) Graves use of use of [id number] aspirin aspirin [employer]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 (current) (current) Graves use of use of [id number] insulin insulin 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 (current) (current) Graves use of use of [id number] inhaled inhaled steroids steroids 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 [id number] toe(s) toe(s) 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 Graves other right other right [id number] toe(s) toe(s) Dependence Dependence Diagnosis Active Patrice on on Graves wheelchair wheelchair [id number] Pain frequent Pain Mgmt Resolve 2019-08-03 Anisha pain d - 13:00:00 [place]irstin 11:30: [id number] 00 Cardio edema Cardiovasc Resolve 2019-08-03 Anisha ular d 1- 13:00:00 [place] 11:30: [id number] 00 Respiratory dyspnea Respirator Resolve 2019-08-03 Anisha present y d - 13:00:00 [place] 11:30: [id number] 00 Respiratory oxygen Respirator Resolve 2019-08-03 Anisha treatments y d 1- 13:00:00 [place] in home 11:30: [id number] 00 Endo/Nhan diabetic Endo/Nhan Resolve 2019-08-03 Anisha foot care d 1- 13:00:00 Kirstin 11:30: [id number] 00 Endo/Nhan anti-coagul Endo/Nhan Resolve 2019-08-03 Anisha ation d - 13:00:00 [place] therapy 11:30: [id number] 00 Integument skin Integument Resolve 2019-08-03 Anisha integrity d 1-03 13:00:00 Kirstin risk 11:30: [id number] 00 Nutrition nutritional Nutrition Resolve 2019-08-03 Anisha restriction d - 13:00:00 [place] s 11:30: [id number] 00 Neuro confusion Neuro/Emot Resolve 2019-08-03 Anisha present ion d 1- 13:00:00 [place]in 11:30: [id number] 00 Neuro anxiety Neuro/Emot Resolve 2019-08-03 Anisha present ion d - 13:00:00 [place] 11:30: [id number] 00 Neuro impaired Neuro/Emot Resolve 2019-08-03 Anisha decision-ma ion d 08-03 13:00:00 [place] lionel 11:30: [id number] 00 Activity ADL Activity Resolve 2019-08-03 Anisha assistance d - 13:00:00 [place] required 11:30: [id number] 00 Activity self-care Activity Resolve 2019-08-03 Anisha deficit d - 13:00:00 [place] 11:30: [id number] 00 Safety fall risk Safety Resolve 2019-08-03 Anisha factor d 08-03 13:00:00 [place] present 11:30: [id number] 00 Safety can be left Safety Resolve 2019-08-03 Anisha alone for d 08-03 13:00:00 [place] only short 11:30: [id number] 00 Safety risk for Safety Resolve 2019-08-03 Anisha hospitaliza d - 13:00:00 [place]in tion 11:30: [id number] 00 Medication oral med Meds Resolve 2019-08-03 Anisha assistance d - 13:00:00 [place] required 11:30: [id number] 00 Medication injectable Meds Resolve 2019-08-03 Anisha med d - 13:00:00 [place] assistance 11:30: [id number] required 00 Medication knowledge/s Meds Resolve 2019-08-03 Anisha kill d - 13:00:00 Kirstin deficit: pt 11:30: [id number] 00 Musculoskel transfer Musculoske Resolve 2019-08-03 Anisha etal assistance letal d 08-03 13:00:00 [place] required 11:30: [id number] 00 Musculoskel requires Musculoske Resolve 2019-08-03 Anisha etal human letal d 08-03 13:00:00 [place] assist to 11:30: [id number] leave home 00 Musculoskel requires Musculoske Resolve 2019-08-03 Anisha etal special letal d 08-03 13:00:00 [place] transportat 11:30: [id number] ion 00 Allergies, Adverse Reactions, Alerts Allergy [...]
--- OUTSIDE RECORDS SUMMARY | 2019-10-15 10:52 | XMS REPORT ---
:1950 Author Organization [facility] Team Providers Name Role Phone [...] Result Comments Laboratory Studies 2019-03-08 12:13:00 Identifier [id number] Result Time Unknown 2019-03-08 12:13:00 Test Item Value Reference Range Comments Unknown (test code = 2339-0) 312 mg/dL Unknown 70-100 F Ordering Physician UnknownLaboratory Aqijknj8309-40-71 06:25:00Identifier 21225- 6 Result Time 2019-03-08 06:25:00Unknown Test Item Value Reference Range Comments Unknown (test code = 2951-2) 136 mmol/L Unknown 135-145 F Ordering Physician UnknownLaboratory Zznxwye1027-08-28 06:25:00Identifier 89089- 6 Result Time 2019-03-08 06:25:00Unknown Test Item Value Reference Range Comments Unknown (test code = 2823-3) 3.7 mmol/L Unknown 3.5-5.0 F Ordering Physician UnknownLaboratory Evilomp8244-39-63 06:25:00Identifier 76768- 6 Result Time 2019-03-08 06:25:00Unknown Test Item Value Reference Range Comments Unknown (test code = 2345-7) 175 mg/dL Unknown 70-100 F Ordering Physician UnknownLaboratory Yxvzgte2122-32-93 06:25:00Identifier 04690- 6 Result Time 2019-03-08 06:25:00Unknown Test Item Value Reference Range Comments Unknown (test code = 95329-0) 49.4 Unknown Unknown F Ordering Physician UnknownLaboratory Mbtppki5337-63-60 06:25:00Identifier 16555- 6 Result Time 2019-03-08 06:25:00Unknown Test Item Value Reference Range Comments Unknown (test code = NullTestCode) 59.8 Unknown Unknown F Ordering Physician UnknownLaboratory Xaibayn9258-89-08 06:25:00Identifier 14237- 6 Result Time 2019-03-08 06:25:00Unknown Test Item Value Reference Range Comments Unknown (test code = 2160-0) 1.42 mg/dL Unknown 0.67-1.17 F Ordering Physician UnknownLaboratory Lifazpz2255-50-10 06:25:00Identifier 85361- 6 Result Time 2019-03-08 06:25:00Unknown Test Item Value Reference Range Comments Unknown (test code = 2075-0) 97 mmol/L Unknown 101-111 F Ordering Physician UnknownLaboratory Fkbplxb5996-37-19 06:25:00Identifier 77032- 6 Result Time 2019-03-08 06:25:00Unknown Test Item Value Reference Range Comments Unknown (test code = 2028-9) 33 mmol/L Unknown 22-32 F Ordering Physician UnknownLaboratory Leqrevk0966-45-46 06:25:00Identifier 36878- 6 Result Time 2019-03-08 06:25:00Unknown Test Item Value Reference Range Comments Unknown (test code = 88564-8) 9.6 mg/dL Unknown 8.6-10.3 F Ordering Physician UnknownLaboratory Pfsyqaa3926-68-21 06:25:00Identifier 86760- 6 Result Time 2019-03-08 06:25:00Unknown Test Item Value Reference Range Comments Unknown (test code = 3094-0) 28 mg/dL Unknown 6-24 F Ordering Physician UnknownLaboratory Lpngedg8615-08-31 06:25:00Identifier 80221- 6 Result Time 2019-03-08 06:25:00Unknown Test Item Value Reference Range Comments Unknown (test code = 3097-3) 19.7 Unknown 8-20 F Ordering Physician UnknownLaboratory Fsxlrmm6968-74-38 06:25:00Identifier 02138- 6 Result Time 2019-03-08 06:25:00Unknown Test Item Value Reference Range Comments Unknown (test code = 64387-2) 6 mmol/L Unknown 2-11 F Ordering Physician UnknownLaboratory Xochwii4366-79-88 06:25:00Identifier 63761- 6 Result Time 2019-03-08 06:25:00Unknown Test Item Value Reference Range Comments Unknown (test code = 37686-1) 7.7 10^3/uL Unknown 3.5-10.8 F Ordering Physician UnknownLaboratory Lahpzkm0002-19-90 06:25:00Identifier 49321- 6 Result Time 2019-03-08 06:25:00Unknown Test Item Value Reference Range Comments Unknown (test code = 788-0) 15 % Unknown 10-15 F Ordering Physician UnknownLaboratory Iqeinpg6397-76-69 06:25:00Identifier 47326- 6 Result Time 2019-03-08 06:25:00Unknown Test Item Value Reference Range Comments Unknown (test code = 789-8) 3.94 10^6 /uL Unknown 4.18-5.48 F Ordering Physician UnknownLaboratory Jwykqla4434-25-12 06:25:00Identifier 89191- 6 Result Time 2019-03-08 06:25:00Unknown Test Item Value Reference Range Comments Unknown (test code = 777-3) 164 10^3/uL Unknown 150-450 F Ordering Physician UnknownLaboratory Rdthwel3699-65-09 06:25:00Identifier 91373- 6 Result Time 2019-03-08 06:25:00Unknown Test Item Value Reference Range Comments Unknown (test code = 84248-1) 7.8 fL Unknown 7.4-10.4 F Ordering Physician UnknownLaboratory Jrpmjyn7018-55-15 06:25:00Identifier 78959- 6 Result Time 2019-03-08 06:25:00Unknown Test Item Value Reference Range Comments Unknown (test code = 787-2) 81 fL Unknown 80-94 F Ordering Physician UnknownLaboratory Oodzbsp8509-15-48 06:25:00Identifier 18996- 6 Result Time 2019-03-08 06:25:00Unknown Test Item Value Reference Range Comments Unknown (test code = 786-4) 34 g/dL Unknown 31-36 F Ordering Physician UnknownLaboratory Icyesbl4545-52-83 06:25:00Identifier 76285- 6 Result Time 2019-03-08 06:25:00Unknown Test Item Value Reference Range Comments Unknown (test code = 785-6) 27 pg Unknown 27-31 F Ordering Physician UnknownLaboratory Hchcxly0591-15-00 06:25:00Identifier 17060- 6 Result Time 2019-03-08 06:25:00Unknown Test Item Value Reference Range Comments Unknown (test code = 718-7) 10.8 g/dL Unknown 14.0-18.0 F Ordering Physician UnknownLaboratory Ysovljg1025-85-01 06:25:00Identifier 86291- 6 Result Time 2019-03-08 06:25:00Unknown Test Item Value Reference Range Comments Unknown (test code = 4544-3) 32 % Unknown 42-52 F Ordering Physician UnknownLaboratory Ceyfzum8930-87-87 06:45:00Identifier 76861- 6 Result Time 2019-03-06 06:45:00Unknown Test Item Value Reference Range Comments Unknown (test code = 2777-1) 3.3 mg/dL Unknown 2.5-5.0 F Ordering Physician UnknownLaboratory Heobfez8678-85-38 06:45:00Identifier 52940- 6 Result Time 2019-03-06 06:45:00Unknown Test Item Value Reference Range Comments Unknown (test code = 40223-2) 2.1 mg/dL Unknown 1.9-2.7 F Ordering Physician UnknownLaboratory Injwosq9364-54-98 13:59:00Identifier 45590- 6 Result Time 2019-03-04 13:59:00Unknown Test Item Value Reference Range Comments Unknown (test code = NullTestCode) Unknown Unknown F Ordering Physician UnknownLaboratory Imfhjiu3908-21-89 13:59:00Identifier 50899- 6 Result Time 2019-03-04 13:59:00Unknown Test Item Value Reference Range Comments Unknown (test code = 3034-6) 203 mg/dL Unknown 203-362 F Ordering Physician UnknownLaboratory Shtzqxe0693-68-36 13:59:00Identifier 53858- 6 Result Time 2019-03-04 13:59:00Unknown Test Item Value Reference Range Comments Unknown (test code = 2500-7) 284 mcg/dL Unknown 250-450 F Ordering Physician UnknownLaboratory Ejckouo3031-25-22 13:59:00Identifier 31334- 6 Result Time 2019-03-04 13:59:00Unknown Test Item Value Reference Range Comments Unknown (test code = NullTestCode) 13 % Unknown 15-55 F Ordering Physician UnknownLaboratory Srgvlbw0457-59-09 13:59:00Identifier 32816- 6 Result Time 2019-03-04 13:59:00Unknown Test Item Value Reference Range Comments Unknown (test code = 2498-4) 36 ug/dL Unknown 50-212 F Ordering Physician UnknownLaboratory Fqgbdxy0203-70-97 17:35:00Identifier 29008- 6 Result Time 2019-03-01 17:35:00Unknown Test Item Value Reference Range Comments Unknown (test code = 2132-9) 866 pg/mL Unknown 180-914 F Ordering Physician UnknownLaboratory Xbhrana0672-38-75 17:35:00Identifier 10510- 6 Result Time 2019-03-01 17:35:00Unknown Test Item Value Reference Range Comments Unknown (test code = 3053-6) 51 ng/dL Unknown 87-178 F Ordering Physician UnknownLaboratory Lbevels1673-99-38 17:35:00Identifier 12665- 6 Result Time 2019-03-01 17:35:00Unknown Test Item Value Reference Range Comments Unknown (test code = 3051-0) 3.10 pg/mL Unknown 2.5-3.9 F Ordering Physician UnknownLaboratory Omjyzzb6478-54-40 17:35:00Identifier 14998- 6 Result Time 2019-03-01 17:35:00Unknown Test Item Value Reference Range Comments Unknown (test code = 3024-7) 0.86 ng/dL Unknown 0.61-1.12 F Ordering Physician UnknownLaboratory Lgzlsrq0092-03-08 17:35:00Identifier 40740- 6 Result Time 2019-03-01 17:35:00Unknown Test Item Value Reference Range Comments Unknown (test code = 2157-6) 52 U/L Unknown 10-223 F Ordering Physician UnknownLaboratory Wjykooe2698-94-03 17:35:00Identifier 10293- 6 Result Time 2019-03-01 17:35:00Unknown Test Item Value Reference Range Comments Unknown (test code = 22204-4) 41 mcmol/L Unknown 16-53 F Ordering Physician UnknownLaboratory Jqljept1316-28-13 16:21:00Identifier 43851- 6 Result Time 2019-03-01 16:21:00Unknown Test Item Value Reference Range Comments Unknown (test code = 38097-0) 0.10 ng/mL Unknown Unknown F Ordering Physician UnknownLaboratory Hvlqozx0398-41-10 05:20:00Identifier 24317- 6 Result Time 2019-03-01 05:20:00Unknown Test Item Value Reference Range Comments Unknown (test code = 28457-0) 0.0 Unknown Unknown F Ordering Physician UnknownLaboratory Nftwvzf1785-60-12 05:20:00Identifier 27169- 6 Result Time 2019-03-01 05:20:00Unknown Test Item Value Reference Range Comments Unknown (test code = 771-6) 0.0 10^3/ul Unknown Unknown F Ordering Physician UnknownLaboratory Rogbhky2045-25-35 05:20:00Identifier 90321- 6 Result Time 2019-03-01 05:20:00Unknown Test Item Value Reference Range Comments Unknown (test code = 770-8) 92.0 % Unknown Unknown F Ordering Physician UnknownLaboratory Tyhvfzm6140-18-62 05:20:00Identifier 35570- 6 Result Time 2019-03-01 05:20:00Unknown Test Item Value Reference Range Comments Unknown (test code = 5905-5) 1.8 % Unknown Unknown F Ordering Physician UnknownLaboratory Rekncbr5009-77-11 05:20:00Identifier 44366- 6 Result Time 2019-03-01 05:20:00Unknown Test Item Value Reference Range Comments Unknown (test code = 736-9) 6.0 % Unknown Unknown F Ordering Physician UnknownLaboratory Aoduzxk0071-64-99 05:20:00Identifier 46611- 6 Result Time 2019-03-01 05:20:00Unknown Test Item Value Reference Range Comments Unknown (test code = 713-8) 0.0 % Unknown Unknown F Ordering Physician UnknownLaboratory Rcwywsj3866-58-20 05:20:00Identifier 45499- 6 Result Time 2019-03-01 05:20:00Unknown Test Item Value Reference Range Comments Unknown (test code = 706-2) 0.2 % Unknown Unknown F Ordering Physician UnknownLaboratory Sbknyao7581-57-43 05:20:00Identifier 86019- 6 Result Time 2019-03-01 05:20:00Unknown Test Item Value Reference Range Comments Unknown (test code = SMN9880) 7.0 10^3/ul Unknown 1.5-7.7 F Ordering Physician UnknownLaboratory Nslzcul6378-15-28 05:20:00Identifier 33228- 6 Result Time 2019-03-01 05:20:00Unknown Test Item Value Reference Range Comments Unknown (test code = 742-7) 0.1 10^3/ul Unknown 0-0.8 F Ordering Physician UnknownLaboratory Tzmxhaj7014-80-33 05:20:00Identifier 86930- 6 Result Time 2019-03-01 05:20:00Unknown Test Item Value Reference Range Comments Unknown (test code = 731-0) 0.5 10^3/ul Unknown 1.0-4.8 F Ordering Physician UnknownLaboratory Mikxxjh3524-79-03 05:20:00Identifier 29570- 6 Result Time 2019-03-01 05:20:00Unknown Test Item Value Reference Range Comments Unknown (test code = 711-2) 0.0 10^3/ul Unknown 0-0.6 F Ordering Physician UnknownLaboratory Kyofmat6434-24-00 05:20:00Identifier 43514- 6 Result Time 2019-03-01 05:20:00Unknown Test Item Value Reference Range Comments Unknown (test code = 704-7) 0.0 10^3/ul Unknown 0-0.2 F Ordering Physician UnknownLaboratory Zqdwvvq8478-91-02 01:05:00Identifier 14828- 6 Result Time 2019-03-01 01:05:00Unknown Test Item Value Reference Range Comments Unknown (test code = 2744-1) 7.37 Unknown 7.35-7.45 F Ordering Physician UnknownLaboratory Idbmkgz0500-96-87 01:05:00Identifier 80985- 6 Result Time 2019-03-01 01:05:00Unknown Test Item Value Reference Range Comments Unknown (test code = 96912-2) 211 mmHg Unknown 80-100 F Ordering Physician UnknownLaboratory Mtbpapy4806-98-73 01:05:00Identifier 51109- 6 Result Time 2019-03-01 01:05:00Unknown Test Item Value Reference Range Comments Unknown (test code = NullTestCode) 51 mmHg Unknown 35-45 F Ordering Physician UnknownLaboratory Atvczgw1142-17-56 01:05:00Identifier 57259- 6 Result Time 2019-03-01 01:05:00Unknown Test Item Value Reference Range Comments Unknown (test code = 2708-6) 99.9 % Unknown 94.0-98.0 F Ordering Physician UnknownLaboratory Styoavc9511-60-16 01:05:00Identifier 40915- 6 Result Time 2019-03-01 01:05:00Unknown Test Item Value Reference Range Comments Unknown (test code = 1960-4) 27.4 mmol/L Unknown 19-31 F Ordering Physician UnknownLaboratory Adydefy7682-86-34 01:05:00Identifier 94295- 6 Result Time 2019-03-01 01:05:00Unknown Test Item Value Reference Range Comments Unknown (test code = 1925-7) 3.1 mmol/L Unknown -2.0-2.0 F Ordering Physician UnknownLaboratory Ahwjlqj4334-40-92 01:05:00Identifier 65918- 6 Result Time 2019-03-01 01:05:00Unknown Test Item Value Reference Range Comments Unknown (test code = NullTestCode) 80 Unknown Unknown F Ordering Physician UnknownLaboratory Apsucze7858-51-54 01:05:00Identifier 20106- 6 Result Time 2019-03-01 01:05:00Unknown Test Item Value Reference Range Comments Unknown (test code = NullTestCode) 500 Unknown Unknown F Ordering Physician UnknownLaboratory Gkqhozk6719-59-93 01:05:00Identifier 87428- 6 Result Time 2019-03-01 01:05:00Unknown Test Item Value Reference Range Comments Unknown (test code = NullTestCode) 15 Unknown Unknown F Ordering Physician UnknownLaboratory Hhhsiaf7438-54-35 01:05:00Identifier 48039- 6 Result Time 2019-03-01 01:05:00Unknown Test Item Value Reference Range Comments Unknown (test code = NullTestCode) 5 Unknown Unknown F Ordering Physician UnknownLaboratory Uacrnxs1398-19-90 20:56:00Identifier 93133- 6 Result Time 2019-02-28 20:56:00Unknown Test Item Value Reference Range Comments Unknown (test code = 3016-3) 1.25 mcIU/mL Unknown 0.34-5.60 F Ordering Physician UnknownLaboratory Jwrxhot0942-99-45 20:56:00Identifier 58800- 6 Result Time 2019-02-28 20:56:00Unknown Test Item Value Reference Range Comments Unknown (test code = 2885-2) 7.0 g/dL Unknown 6.4-8.9 F Ordering Physician UnknownLaboratory Naqpgmh0419-70-28 20:56:00Identifier 49512- 6 Result Time 2019-02-28 20:56:00Unknown Test Item Value Reference Range Comments Unknown (test code = 1975-2) 0.50 mg/dL Unknown 0.2-1.0 F Ordering Physician UnknownLaboratory Hsjgkzd6995-46-95 20:56:00Identifier 80117- 6 Result Time 2019-02-28 20:56:00Unknown Test Item Value Reference Range Comments Unknown (test code = NullTestCode) 3.4 g/dL Unknown 2-4 F Ordering Physician UnknownLaboratory Noiiuda6362-94-70 20:56:00Identifier 83770- 6 Result Time 2019-02-28 20:56:00Unknown Test Item Value Reference Range Comments Unknown (test code = 1988-5) 64.61 mg/L Unknown 0-8.00 F Ordering Physician UnknownLaboratory Utpdupj1579-67-96 20:56:00Identifier 60146- 6 Result Time 2019-02-28 20:56:00Unknown Test Item Value Reference Range Comments Unknown (test code = 1920-8) 16 U/L Unknown 13-39 F Ordering Physician UnknownLaboratory Iuasqcn7113-20-21 20:56:00Identifier 82861- 6 Result Time 2019-02-28 20:56:00Unknown Test Item Value Reference Range Comments Unknown (test code = 6768-6) 60 U/L Unknown 34-104 F Ordering Physician UnknownLaboratory Yzisgst1849-67-34 20:56:00Identifier 19620- 6 Result Time 2019-02-28 20:56:00Unknown Test Item Value Reference Range Comments Unknown (test code = 1759-0) 1.1 Unknown 1-3 F Ordering Physician UnknownLaboratory Fobxqft0854-26-21 20:56:00Identifier 66699- 6 Result Time 2019-02-28 20:56:00Unknown Test Item Value Reference Range Comments Unknown (test code = 00820-6) 3.6 g/dL Unknown 3.2-5.2 F Ordering Physician UnknownLaboratory Yzwrfim0410-53-47 20:56:00Identifier 49600- 6 Result Time 2019-02-28 20:56:00Unknown Test Item Value Reference Range Comments Unknown (test code = 1742-6) 11 U/L Unknown 7-52 F Ordering Physician UnknownLaboratory Ftmouod1623-88-25 20:56:00Identifier 39224- 6 Result Time 2019-02-28 20:56:00Unknown Test Item Value Reference Range Comments Unknown (test code = 57393-1) 224 pg/mL Unknown Unknown F Ordering Physician UnknownLaboratory Hsopnxc4172-23-02 20:56:00Identifier 51464- 6 Result Time 2019-02-28 20:56:00Unknown Test Item Value Reference Range Comments Unknown (test code = 2524-7) 1.4 mmol/L Unknown 0.5-2.0 F Ordering Physician UnknownLaboratory Mzfkcuv2284-90-32 20:56:00Identifier 29450- 6 Result Time 2019-02-28 20:56:00Unknown Test Item Value Reference Range Comments Unknown (test code = 33503-6) 1.12 Unknown 0.82-1.09 F Ordering Physician UnknownLaboratory Zikxqar9554-25-89 20:56:00Identifier 38290- 6 Result Time 2019-02-28 20:56:00Unknown Test Item Value Reference Range Comments Unknown (test code = 63869-7) 36.2 seconds Unknown 26.0-38.0 F Ordering Physician UnknownLaboratory Dncozmb2963-02-15 20:49:00Identifier 99422- 6 Result Time 2019-02-28 20:49:00Unknown Test Item Value Reference Range Comments Unknown (test code = NullTestCode) 6.0 Unknown 5-9 F Ordering Physician UnknownLaboratory Qhjhzpm6379-19-82 20:49:00Identifier 44785- 6 Result Time 2019-02-28 20:49:00Unknown Test Item Value Reference Range Comments Unknown (test code = 80371-2) 1.008 Unknown 1.010-1.030 F Ordering Physician UnknownLaboratory Lffqjsx5777-66-64 17:41:00Identifier 29671- 6 Result Time 2019-02-28 17:41:00Unknown Test Item Value Reference Range Comments Unknown (test code = 2746-6) 7.38 Unknown 7.32-7.43 F Ordering Physician UnknownLaboratory Ikynukl6377-45-15 17:41:00Identifier 21700- 6 Result Time 2019-02-28 17:41:00Unknown Test Item Value Reference Range Comments Unknown (test code = 2705-2) 51.0 mmHg Unknown 35-45 F Ordering Physician UnknownLaboratory Lgockkx8173-95-01 17:41:00Identifier 45852- 6 Result Time 2019-02-28 17:41:00Unknown Test Item Value Reference Range Comments Unknown (test code = 2021-4) 61 mmHg Unknown 41-51 F Ordering Physician UnknownLaboratory Hdxcvhd9813-13-28 17:41:00Identifier 25863- 6 Result Time 2019-02-28 17:41:00Unknown Test Item Value Reference Range Comments Unknown (test code = 42680-8) 86.2 % Unknown 70-80 F Ordering Physician UnknownLaboratory Utuguco6250-56-70 17:41:00Identifier 37299- 6 Result Time 2019-02-28 17:41:00Unknown Test Item Value Reference Range Comments Unknown (test code = NullTestCode) 31.3 mmol/L Unknown 24-28 F Ordering Physician UnknownLaboratory Vpgcels3264-82-13 17:41:00Identifier 21104- 6 Result Time 2019-02-28 17:41:00Unknown Test Item Value Reference Range Comments Unknown (test code = NullTestCode) 8.7 mmol/L Unknown 0.0-4.0 F Ordering Physician UnknownLaboratory Kritshu0549-67-45 08:40:00Identifier 46340- 6 Result Time 2019-02-10 08:40:00Unknown Test Item Value Reference Range Comments Unknown (test code = 4537-7) 68 mm/Hr Unknown 0-19 F Ordering Physician Unknown
--- OUTSIDE RECORDS SUMMARY | 2019-10-15 10:53 | XMS REPORT ---
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 08-01 Graves pulmonary pulmonary [id number] disease, disease, unspecified unspecified Hypertensiv Hypertensiv Diagnosis Active Patrice e heart and e heart and 08-01 Graves chronic chronic [id number] kidney kidney disease disease with heart with heart failure and failure and stage 1 stage 1 through through stage 4 stage 4 chronic chronic kidney kidney disease, or disease, or unspecified unspecified chronic chronic kidney kidney disease disease Chronic Chronic Diagnosis Active Patrice diastolic diastolic 08-01 Graves (congestive (congestive [id number] ) heart ) heart failure failure 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 08-01 Graves mellitus mellitus [id number] with with diabetic diabetic chronic chronic kidney kidney disease disease Chronic Chronic Diagnosis Active Patrice kidney kidney 08-01 Graves disease, disease, [id number] stage 3 stage 3 (moderate) (moderate) 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 [place] coronary coronary artery artery without without angina angina pectoris pectoris 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 mellitus mellitus [id number] with with diabetic diabetic peripheral peripheral angiopathy angiopathy without without gangrene gangrene Rheumatoid Rheumatoid Diagnosis Active Patrice arthritis, arthritis, Graves unspecified unspecified [id number] 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 mellitus mellitus [id number] with with diabetic diabetic polyneuropa polyneuropa thy thy Major Major Diagnosis Active [place] depressive depressive Graves disorder, disorder, [id number] single single episode, episode, unspecified unspecified 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 [place] myocardial myocardial Graves infarction infarction [id number] Unspecified Unspecified Diagnosis Active Patrice osteoarthri osteoarthri Graves tis, tis, [id number] unspecified unspecified site site Personal Personal Diagnosis Active Patrice history of history of Graves pneumonia pneumonia [id number] (recurrent) (recurrent) Presence of Presence of Diagnosis Active 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 [id number] graft graft Presence of Presence of Diagnosis Active Patrice cardiac cardiac Graves pacemaker pacemaker [id number] correction rat 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 Diagnosis Active Patrice (current) (current) Graves use of use of [id number] aspirin aspirin correction rat 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 Diagnosis Active Patrice (current) (current) Graves use of use of [id number] insulin insulin rat 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 rat 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 Diagnosis Active Patrice (current) (current) Graves use of use of [id number] inhaled inhaled steroids steroids 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 [id number] toe(s) toe(s) 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 Graves other right other right [id number] toe(s) toe(s) Dependence Dependence Diagnosis Active Patrice on on Graves wheelchair wheelchair [id number] Pain frequent Pain Mgmt Resolve 2019-08-03 Anisha pain d - 13:00:00 [place] 11:30: [id number] Cardio edema Cardiovasc Resolve 2019-08-03 Anisha ular d 1- 13:00:00 [place] 11:30: [id number] 00 Respiratory dyspnea Respirator Resolve 2019-08-03 Anisha present y d - 13:00:00 [place] 11:30: [id number] 00 Respiratory oxygen Respirator Resolve 2019-08-03 Anisha treatments y d 1- 13:00:00 [place] in home 11:30: [id number] 00 Endo/Nhan diabetic Endo/Nhan Resolve 2019-08-03 Anisha foot care d 1- 13:00:00 [place] 11:30: [id number] 00 Endo/Nhan anti-coagul Endo/Nhan Resolve 2019-08-03 Anisha ation d - 13:00:00 [place] therapy 11:30: [id number] 00 Integument skin Integument Resolve 2019-08-03 Anisha integrity d 1-03 13:00:00 [place] risk 11:30: [id number] 00 Nutrition nutritional Nutrition Resolve 2019-08-03 Anisha restriction d - 13:00:00 [place] s 11:30: [id number] 00 Neuro confusion Neuro/Emot Resolve 2019-08-03 Anisha present ion d 1- 13:00:00 [place] 11:30: [id number] 00 Neuro anxiety Neuro/Emot Resolve 2019-08-03 Anisha present ion d - 13:00:00 [place] 11:30: [id number] 00 Neuro impaired Neuro/Emot Resolve 2019-08-03 Anisha decision-ma ion d 08-03 13:00:00 [place] lionel 11:30: [id number] 00 Activity ADL Activity Resolve 2019-08-03 Anisha assistance d - 13:00:00 [place] required 11:30: [id number] 00 Activity self-care Activity Resolve 2019-08-03 Anisha deficit d - 13:00:00 [place] 11:30: [id number] 00 Safety fall risk Safety Resolve 2019-08-03 Anisha factor d 08-03 13:00:00 [place] present 11:30: [id number] 00 Safety can be left Safety Resolve 2019-08-03 Anisha alone for d 08-03 13:00:00 [place] only short 11:30: [id number] 00 Safety risk for Safety Resolve 2019-08-03 Anisha hospitaliza d - 13:00:00 [place] tion 11:30: [id number] 00 Medication oral med Meds Resolve 2019-08-03 Anisha assistance d - 13:00:00 [place] required 11:30: [id number] 00 Medication injectable Meds Resolve 2019-08-03 Anisha med d - 13:00:00 [place] assistance 11:30: [id number] required 00 Medication knowledge/s Meds Resolve 2019-08-03 Anisha kill d - 13:00:00 [place] deficit: pt 11:30: [id number] 00 Musculoskel transfer Musculoske Resolve 2019-08-03 Anisha etal assistance letal d 08-03 13:00:00 [place] required 11:30: [id number] 00 Musculoskel requires Musculoske Resolve 2019-08-03 Anisha etal human letal d 08-03 13:00:00 [place] assist to 11:30: [id number] leave home 00 [place]culos[place] requires Musculoske Resolve 2019-08-03 Anisha etal special letal d 08-03 13:00:00 [place] transportat 11:30: [id number] ion 00 Allergies, Adverse Reactions, Alerts Allergy [...]
--- OUTSIDE RECORDS SUMMARY | 2019-10-15 10:53 | XMS REPORT | Continuity of Care Document ---
:1950 External Reference #:[id number] Author Name Deonte Masters M.D. Address [address] [place] [address] Care Team Providers Name Role Phone [facility] - Care Team Information Mdm Sr [phone] Gastroenterology Otoniel Bañuelos MD - Cardiovascular Care Team Information Mdm Sr Disease Venu Monet - Endocrinology, Diabetes & Care Team Information Mdm Sr Metabolism Deonte Masters MD - Family Medicine Care Team Information Mdm Sr [phone] Epifanio Palomino MD - Vascular Surgery Care Team Information Mdm Sr [facility] Hospitalists - Hospitalist Care Team Information Mdm Sr Adonis Ackerman MD - Care Team Information Mdm Sr [phone] Gastroenterology Problems Active Problems Provider Date Type [...] Former Cigarette Smoker 1 quit after his [place] Unknown Pack Daily ETOH Use Rarely consumes alcohol Tobacco Use Start: Unknown End: Patient is a former smoker Unknown Smoking Status Reviewed: 08/30/19 Patient is a former smoker Allergies, Adverse Reactions, Alerts Active Allergies Reaction Severity Comments Date Bactrim Urticaria rash 03/28/2015 Inactive Allergies NKDA 03/28/2015 Medications Active Medications SIG Qnty Indications Ordering Date Provider Ameyastagustin Litloulou Use To Test Four 300units Deonte FLora 08/22/2019 Times A Day Or as Bartolome Masters Strips 50'S Directed Mucinex take 1 tablet by 180tabs Deonte F. 08/02/2019 600mg Tablets mouth two times Bartolome Masters ER 12HR daily as needed for congestion -- maximum daily dose of 2 per day Note needs lancets for 100units Deonte F. 03/12/2019 Freestyle 28 Sonam vaughan M.D. dx e11.9 Spiriva Handihaler inhale the contents 3caps Tawana C. 05/18/2018 of 1 capsule daily LAURA Higginbotham 18mcg Capsules Furosemide Take 2 Tablets 180tabs R06.02 Deonte F. 04/18/2018 40mg Daily Bartolome Masters Tablets BD Pen Mckinley Uf Short Use With Lantus And 400units Deonte F. 01/29/2018 8mm 100'S 31G5/16 Humalog Pen Four Bartolome Masters Times A Day 31G5/16 Portable O2 dx. j44.9 lifetime Deonte F. 10/03/2017 Concentrator Bartolome Masters Misc Celecoxib 1 po qd 180caps Deonte FLora 06/22/2017 200mg Bartolome Masters Capsules Buspirone HCL 1 by mouth twice a 180tabs Deonte F. 12/23/2016 10mg day as needed Bartolome Masters Tablets BD Pen use with lantus and 400units Deonte F. 07/27/2016 Needle/Short/Ultrafi humolog pen qid Bartolome Masters ne/31G X 12/14" dx:e11.65 last appt 31G X 11/30/16 8 mm [facility] Omeprazole Take 1 Capsule By 90caps Deonte [...] 04/09/2015 day or as directed Bartolome Masters [facility] [place]: dm, last visit 12/13/2017 Oxygen Therapy 2L, Via N/C at Deonte [...] 09/10/2002 0.4mg pain, may repeat q Bartolome Masters Tablets Sub 5-10min,if no relief after 3,call emt's Multi For Him one capsule daily Unknown Tramadol HCL tid Unknown 50mg Tablets Tylenol 8 Hour as needed Unknown 650mg Tablets ER Bisoprolol Fumarate 1 by mouth every 90tabs Carmen Grace day LAURA hCaparro 5mg Tablets Doxycycline 1 po biid Unknown 100mg Tablets Humalog Kwikpen Inject 6 Units 30units Deonte [...] F. 0.4mg Capsules Bartolome Masters History Medications Keflex 1 by mouth three 21caps Carmen Grace 08/28/2019 - 500mg Capsules times a day LAURA Chaparro 09/04/2019 Cheratussin [facility] - hours as needed Bartolome 08/28/2019 100-10mg/5ML Syrup Medications Administered in Office Medication SIG Qnty Indications Ordering Provider Date Injection Rocephrin 250 MG Aron Sanchez M.D. 09/23/2003 Injection Injection Subcutaneous Or Aron Sanchez M.D. 09/23/2003 Intramuscular Injection Immunizations CPT Code Status Date Vaccine Reaction Lot # [id number] Given 05/29/2019 High-Dose, Influenza Virus Vacccine-fluzone 65 and older [id number] Given 06/20/2018 Pneumococcal Immunization [id number] 59196 Given 04/18/2018 High-Dose, Influenza Virus [id number] Vacccine-fluzone 65 and older 94887 Given 05/17/2017 High-Dose, Influenza Virus [id number] Vacccine-fluzone 65 and older 92351 Given 05/20/2016 High-Dose, Influenza Virus [id number] Vacccine-fluzone 65 and older 07857 Given 05/22/2015 Influenza Vac, Quadrivalent, [id number] [address] Given 04/11/2015 Pneumococcal Conjugate [id number] Vacc-13 Q2038 Given 05/30/2014 Split Influenza Medicare: [id number] Fluzone Q2038 Given 05/30/2014 Split Influenza Medicare: Fluzone Q2038 Given 04/25/2012 Split Influenza Medicare: no reaction noted [id number] Fluzone 34405 Given 04/25/2012 Tdap Tetanus, W Pertussis no reaction noted [id number] Q2038 Given 04/20/2011 Split Influenza Medicare: Fluzone 71426 Given 04/20/2011 DO Not Use Split Influenza [id number] Virus Vaccine 16314 Given 04/22/2010 DO Not Use Split Influenza [id number] Virus Vaccine 96976 Given 08/20/2009 Pneumococcal Immunization 71229 Given 06/23/2009 H1N1 Immunization Intramuscular/Intranasal W Counseling 26988 Given 06/23/2009 H1N1 Virus Vaccine [id number] 44406 Given 04/10/2009 DO Not Use Split Influenza [id number] Virus Vaccine 81031 Given 05/09/2008 DO Not Use Split Influenza Virus Vaccine 33486 Given 06/29/2007 DO Not Use Split Influenza [id number] Virus Vaccine 58723 Given 06/18/2006 DO Not Use Split Influenza [id number] Virus Vaccine 49416 Given 06/01/2005 DO Not Use Split Influenza Virus Vaccine 89560 Given 06/01/2005 DO Not Use Split Influenza Virus Vaccine 73974 Given 06/12/2004 DO Not Use Split Influenza Virus Vaccine 24658 Given 06/12/2004 DO Not Use Split Influenza Virus Vaccine 25225 Given 04/23/2003 DO Not Use Split Influenza Virus Vaccine 62483 Given 06/13/2001 Influenza Immunization 74212 Given 06/13/2001 DO Not Use Split Influenza Virus Vaccine 76025 Given 05/05/2000 DO Not Use Split Influenza Virus Vaccine 48629 Given 05/23/1998 Pneumococcal Immunization 55182 Given 05/23/1998 Influenza Immunization 61959 Given 04/11/1997 Influenza Immunization Vital Signs Date Vital Result Comment 10/02/2019 3:02pm BP Systolic 120 mmHg BP Diastolic 62 mmHg Heart Rate 66 /min Body Temperature 97.5 F Respiratory Rate 16 /min O2 % BldC Oximetry 962 % 08/28/2019 2:41pm BP Systolic 128 mmHg BP Diastolic 66 mmHg Heart Rate 58 /min Body Temperature 97.3 F Respiratory Rate 15 /min O2 % BldC Oximetry 93 % Results Test Acquired Date Facility Test Result H/L Range Note Laboratory test 08/02/2019 [facility] Hemoglobin A1c 6.6% % High 4.1 -5.7 finding (607)- - (Fma) Lipid Profile 08/02/2019 [facility](a) Cholesterol 128 mg/dL 120- 200 Triglycerides 178 mg/dL 30-200 HDL Cholesterol 38 mg/dL 30-70 LDL (Calculated) 54 CALC 0-129 VLDL Cholesterol 36 mg/dL 0-50 HDL Risk Factor 3.4 CALC 0.0-4.4 Comprehensive Metabolic 08/02/2019 [facility](fma) Sodium 136 mEq/L 134-149 Prof Potassium 4.2 mEq/L 3.6-5.5 Chloride 100 mEq/L 94-112 Carbon Dioxide 29 mEq/L 21-32 Glucose 167 mg/dL High 70-105 1 BUN 39 mg/dL High 6-26 Creatinine 1.5 mg/dL High 0.6-1.4 BUN/Creat Ratio 26.0 CALC 8.0-36.0 Calcium 9.4 mg/dL 8.6-10.2 Total Protein 7.0 g/dL 6.4-8.3 Albumin 4.1 g/dL 3.8-5.5 Globulin 2.9 g/dL 2.0-4.8 A/G Ratio 1.4 CALC 0.6-2.3 Alk. Phosphatase 49 U/L 22-95 Alt (SGPT) 8 U/L 7-35 Ast (Sgot) 9 U/L 5-34 Total Bilirubin 0.3 mg/dL 0.2-1.3 GFR Non- 49 ml/min/1.73m^ Low >=60 GFR 60 ml/min/1.73m^ >=60 CBC Electronic a 08/02/2019 [facility](a) WBC 6.8 x10^3/UL 4.0- 10.0 RBC 4.04 x10^6/UL 3.93-6.00 HGB 10.6 g/dL Low 12.0-17.0 2 HCT 35 % 35-50 MCV 85.9 fL 80.0-95.0 MCH 26.2 pg 25.6-32.2 MCHC 30.5 g/dL Low 32.2-36.0 3 RDW-CV 16.1 % High 11.6-14.4 4 PLT 184 x10^3/UL 163-400 MPV 9.9 fL 9.4-12.4 Crystal# 4.72 x10^3/UL 1.56-6.13 Lymph# 1.37 x10^3/UL 1.18-3.74 Reynolds# 0.54 x10^3/UL 0.24-0.82 Eos # 0.1 x10^3/UL 0.0-0.5 Baso # 0.04 x10^3/UL 0.01-0.08 Crystal% 69.3 % 34.0-70.0 Lymph % 20.1 % 20.0-52.0 Reynolds% 7.9 % 5.0-12.0 Eos% 2.1 % 0.7-7.0 Baso% 0.6 % 0.1-1.2 Influenza A & B Request 06/21/2019 [facility] Flu AB Disclaimer (SEE NOTE) 5 Influenza A Molecular NEGATIVE Negative 6 Influenza B Molecular NEGATIVE Negative Urine Culture And 06/21/2019 [facility] Urine Culture SEE RESULT 7 Sensitivities BELOW Laboratory test 06/21/2019 [facility] Troponin-I 7.31 ng/mL Critical high <0.03 8 finding (TnI) Alcohol < 10 mg/dL Normal <10 Comp Metabolic Panel 06/21/2019 [facility] Sodium 140 mmol/L Normal 135-145 Potassium 4.3 mmol/L Normal 3.5-5.0 Chloride 102 mmol/L Normal 101-111 Co2 Carbon Dioxide 32 mmol/L Normal 22-32 Anion Gap 6 mmol/L Normal 2-11 Glucose 176 mg/dL High 70-100 Blood Urea Nitrogen 44 mg/dL High 6-24 Creatinine 2.01 mg/dL High 0.67-1.17 BUN/Creatinine Ratio 21.9 High 8-20 Calcium 9.5 mg/dL Normal 8.6-10.3 Total Protein 6.9 g/dL Normal 6.4-8.9 Albumin 3.3 g/dL Normal 3.2-5.2 Globulin 3.6 g/dL Normal 2-4 Albumin/Globulin Ratio 0.9 Low 1-3 Total Bilirubin 0.60 mg/dL Normal 0.2-1.0 Alkaline Phosphatase 47 U/L Normal 34-104 Alt 13 U/L Normal 7-52 Ast 31 U/L Normal 13-39 Egfr Non- 33.1 >60 Egfr 40.1 >60 9 Laboratory test 06/21/2019 [facility] Lactic Acid 1.0 mmol/L Normal 0.5-2.0 10 finding CBC Auto Diff 06/21/2019 [facility] White Blood Count 11.4 10^3/uL High 3.5- 10.8 Red Blood Count 4.02 10^6/uL Low 4.18-5.48 Hemoglobin 10.5 g/dL Low 14.0-18.0 Hematocrit 32 % Low 42-52 Mean Corpuscular Volume 80 fL Normal 80-94 Mean Corpuscular Hemoglobin 26 pg Low 27-31 Mean Corpuscular HGB Conc 33 g/dL Normal 31-36 Red Cell Distribution Width 16 % High 10-15 Platelet Count 159 10^3/uL Normal 150-450 Mean Platelet Volume 7.6 fL Normal 7.4-10.4 Abs Neutrophils 8.9 10^3/uL High 1.5-7.7 Abs Lymphocytes 1.3 10^3/uL Normal 1.0-4.8 Abs Monocytes 1.1 10^3/uL High 0-0.8 Abs Eosinophils 0.0 10^3/uL Normal 0-0.6 Abs Basophils 0.0 10^3/uL Normal 0-0.2 Abs Nucleated RBC 0.0 10^3/uL Granulocyte % 78.4 % Lymphocyte % 11.8 % Monocyte % 9.5 % Eosinophil % 0.0 % Basophil % 0.3 % Nucleated Red Blood Cells % 0.0 Urinalysis Profile 06/21/2019 [facility] Urine Color Yellow Urine Appearance Clear Urine Specific [place] 1.015 Normal 1.010-1.030 Urine pH 8.0 Normal 5-9 Urine Urobilinogen Negative Negative Urine Ketones Trace Abnormal Negative Urine Protein 1+(30 mg/dL) Abnormal Negative Urine Leukocytes 1+ Abnormal Negative Urine Blood Negative Negative Urine Nitrite Negative Negative Urine Bilirubin Negative Negative Urine Glucose Negative Negative Urine White Blood Cell Trace(0-5/hpf) Absent Urine Red Blood Cell Trace(0-2/hpf) Absent Urine Bacteria Absent Absent Urine Squamous Epithelial Cell Present Abnormal Absent Laboratory test finding 06/21/2019 [facility] Ammonia 40 mcmol/L Normal 16-53 B-Type Natriuretic Peptide BNP 672 pg/mL High <=100 Blood Culture SEE RESULT BELOW 11 Arterial Blood Gas 06/21/2019 [facility] O2 Device 2LPM NC PH Arterial 7.39 Normal 7.35-7.45 Pco2 Arterial 46 mmHg High 35-45 Po2 Arterial 81 mmHg Normal 80-100 O2 Saturation Arterial 97.5 % Normal 94.0-98.0 Base Excess Arterial 2.2 mmol/L High -2.0-2.0 12 Hco3 Arterial 26.6 mmol/L Normal 19-31 Comp Metabolic Panel 05/25/2019 [facility] Sodium 140 mmol/L Normal 135-145 Potassium 4.8 mmol/L Normal 3.5-5.0 Chloride 99 [...] Egfr Non- 36.7 >60 Egfr 44.4 >60 13 Laboratory test 05/25/2019 [facility] C Reactive Protein 12.80 mg/L High <8.01 14 finding CBC Auto Diff 05/25/2019 [facility] White Blood Count 6.8 10^3/uL Normal 3.5- 10.8 Red Blood Count 4.04 10^6/uL Low 4.18-5.48 [...] % Nucleated Red Blood Cells % 0.3 Laboratory test 05/25/2019 [facility] Erythrocyte Sed 58 mm/Hr High 0-19 15 finding Rate Laboratory test 05/25/2019 [facility] PSA Diagnostic 0.654 Normal 0-4.0 finding ng/mL Lipid Profile 04/10/2019 [facility](fma) Cholesterol 149 mg/dL 120- 200 Triglycerides 103 mg/dL 30-200 HDL Cholesterol 43 mg/dL 30-70 LDL (Calculated) 85 CALC 0-129 VLDL Cholesterol 21 mg/dL 0-50 HDL Risk Factor 3.5 CALC 0.0-4.4 Comprehensive Metabolic 04/10/2019 [facility] Mehreen(fma) Sodium 145 mEq/L 134-149 Prof Potassium 5.1 mEq/L 3.6-5.5 Chloride 103 mEq/L 94-112 Carbon Dioxide 34 mEq/L High 21-32 16 Glucose 113 mg/dL High 70-105 17 BUN 25 mg/dL 6-26 Creatinine 1.4 mg/dL 0.6-1.4 BUN/Creat Ratio 17.9 CALC 8.0-36.0 Calcium 9.3 mg/dL 8.6-10.2 Total Protein 6.8 g/dL 6.4-8.3 Albumin 4.1 g/dL 3.8-5.5 Globulin 2.7 g/dL 2.0-4.8 A/G Ratio 1.5 CALC 0.6-2.3 Alk. Phosphatase 51 U/L 22-95 Alt (SGPT) 9 U/L 7-35 Ast (Sgot) 10 U/L 5-34 Total Bilirubin 0.3 mg/dL 0.2-1.3 GFR Non- 53 ml/min/1.73m^ Low >=60 GFR >60 ml/min/1.73m^ >=60 Laboratory test finding 04/10/2019 [facility]) TSH 5.00 mIU/L 0.50-6.00 CK 36 U/L Low 38-174 18 CBC Electronic a 04/10/2019 [facility]edre([facility]) WBC 5.4 x10^3/UL 4.0- 10.0 RBC 3.67 x10^6/UL Low 3.93-6.00 19 HGB 10.0 g/dL Low 12.0-17.0 HCT 32 % Low 35-50 MCV 86.4 fL 80.0-95.0 MCH 27.0 pg 25.6-32.2 MCHC 31.2 g/dL Low 32.2-36.0 RDW-CV 14.1 % 11.6-14.4 PLT 170 x10^3/UL 163-400 MPV 9.5 fL 9.4-12.4 Crystal# 3.66 x10^3/UL 1.56-6.13 Lymph# 1.06 x10^3/UL Low 1.18-3.74 Reynolds# 0.43 x10^3/UL 0.24-0.82 Eos # 0.2 x10^3/UL 0.0-0.5 Baso # 0.03 x10^3/UL 0.01-0.08 Crystal% 67.5 % 34.0-70.0 Lymph % 19.6 % Low 20.0-52.0 Reynolds% 7.9 % 5.0-12.0 Eos% 4.4 % 0.7-7.0 Baso% 0.6 % 0.1-1.2 Laboratory test 04/10/2019 [facility] Hemoglobin A1c 6.8 % High 4.1- 5.7 finding (607)- - (Fma) 1 NON-FASTING 2 RESULTS VERIFIED BY REPEAT ANALYSIS 3 RESULTS VERIFIED BY REPEAT ANALYSIS 4 RESULTS VERIFIED BY REPEAT ANALYSIS 5 Suboptimal collection technique may reduce sensitivity of test. Refer to the [facility] Test Catalog for collection information: [email or web address] As with all diagnostic procedures, the laboratory results obtained should be used in conjunction with other clinical information available to the physician, including confirmation by another method, as applicable. 6 Senior Applications Architect: [id number] 7 SEE RESULT BELOW Name: CHAI KNOX : [address]: Chapito Espinoza MD Acct: [id number] Unit: [id number] AGE: 69 Location: ICU [id number] Re06/21/19 SEX: M Status: ADM IN SPEC: [id number] SOLEDAD: 06/21/19 [facility] DR: Bhupendra Singh MD REQ: [id number] RECD: 06/21/19 STATUS: MORGAN HENDRICKS DR: Deonte Masters MD _ SOURCE: URINE SPDESC: ORDERED: Urine Culture Procedure Result Reported Site Urine Culture Final 06/22/19- 07 ML No Growth (<1,000 CFU/mL) * ML - Main Lab . END OF REPORT DEPARTMENT OF PATHOLOGY, [address] [place] [address] To Guido M.D. Director [facility] # [id number] 8 Result TnIDx:7.31 Called to [id number] at: 09:06:23 by:[email or web address] Read back by: [id number] Troponin-I testing on Plasma Separator Tubes (PST) has a known false positive rate of 0.20-0.40%. All positive troponins reflex immediately to secondary confirmatory testing. Using the [employer] DxI 800 Access Immunoassay systems, the 99th percentile upper reference limit was demonstrated to be < 0.03 ng/mL. 9 Because ethnic data is not always [...] 5 Kidney failure <15 (or dialysis) 10 COS Severe Sepsis and Septic Shock Management Bundle Measure requires all lactic acids initially measuring >2.0 mmol/L be repeated. 11 SEE RESULT BELOW Name: CHAI KNOX : [address]: Keyur Hoffman MD Acct: [id number] Unit: [id number] AGE: 69 Location: ICU [id number] Re06/21/19 SEX: M Status: ADM IN SPEC: [id number] SOLEDAD: 06/21/19 [facility] DR: Bhupendra Singh MD REQ: [id number] RECD: 06/21/19 STATUS: MORGAN HENDRICKS DR: Deonte Masters MD _ SOURCE: BLOOD,VENO SPDESC: ORDERED: Blood Cult Procedure Result Reported Site Aerobic Culture Bottle Final 06/26/19- 0842 ML No Growth Day 5 Anaerobic Culture Bottle Final 06/26/19- 0840 ML No Growth Day 5 * ML - Main Lab . END OF REPORT DEPARTMENT OF PATHOLOGY, [address] [place] [address] To Guido M.D. Director [facility] # [id number] 12 Reference ranges based on room air. 13 Because ethnic data is not always readily [...] 15-29 5 Kidney failure <15 (or dialysis) 14 Please check labs 2 days before follow up 15 Please check labs 2 days before follow up 16 RESULTS VERIFIED BY REPEAT ANALYSIS 17 RESULTS VERIFIED BY REPEAT ANALYSIS 18 RESULTS VERIFIED BY REPEAT ANALYSIS 19 consistent w/ previous results Procedures Date Code Description Status 08/02/2019 72658 Pulse Oximetry Completed 04/10/2019 47907 Pulse Oximetry Completed 04/01/2019 287751971 Diabetic Retinal Eye Exam Completed 02/08/2012 86634256 Colonoscopy Completed Medical Devices Description No Information Available Encounters Type Date Location Provider Dx Diagnosis Office Visit 08/28/2019 Main Office Carmen Edwards L03.012 Cellulitis of left 2:45p ChaparroLAURA finger Office Visit 08/02/2019 Main Office Deonte Masters, E11.42 Type 2 diabetes 8:00a M.D. 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 polyneuropathy 10/02/2019 M06.09 Rheumatoid arthritis without rheumatoid Deonte Masters M.D. factor, multiple sit 10/02/2019 I25.10 Atherosclerotic heart disease of [place] Deonte Masters M.D. coronary artery with 10/02/2019 M54.5 Low back pain Deonte Masters M.D. 08/28/2019 L03.012 Cellulitis of left finger Carmen Chaparro, [employer] 08/02/2019 E11.42 Type 2 diabetes mellitus with diabetic Deonte Masters M.D. polyneuropathy 08/02/2019 M06.09 Rheumatoid arthritis without rheumatoid Deonte Masters M.D. factor, multiple sit 08/02/2019 J44.9 Chronic obstructive pulmonary disease, Deonte Masters M.D. unspecified 08/02/2019 I25.10 Atherosclerotic heart disease of [place] Deonte Masters M.D. coronary artery with 04/10/2019 E11.9 Type 2 diabetes mellitus without Deonte Masters M.D. complications 04/10/2019 I25.10 Atherosclerotic heart disease of [place] Deonte Masters M.D. coronary artery with 04/10/2019 I25.10 Atherosclerotic heart disease of [place] Deonte Masters M.D. coronary artery without angina pectoris 04/10/2019 E11.9 Type 2 diabetes mellitus without Deonte Masters M.D. complications 04/10/2019 M06.09 Rheumatoid arthritis without rheumatoid Deonte Masters M.D. factor, multiple sit 04/10/2019 E78.49 Other hyperlipidemia Deonte Masters M.D. 04/10/2019 I73.9 Peripheral vascular disease, unspecified Deonte Masters M.D. Plan of Treatment Future Appointment(s):12/25/2019 10:40 am - Deonte Masters M.D. at Main [id number]/02/2019 - Deonte Masters M.D.E11.42 Type 2 diabetes mellitus with diabetic polyneuropathyComments:continue present medication of 33 units of Lantus daily and pioglitazone 15 mg zqawrP36.09 Rheumatoid arthritis without rheumatoid factor, multiple sitComments:Continue followup with Dr. Rosenthal , continue fplhjhnpaajG15.10 Atherosclerotic heart disease of [place] coronary artery withComments:continue present medication,will call if there is any increase in the frequency or severity of bqzuawR53.5 Low back painComments: Symptoms are stable on tramadol however patient may be having urinary retention from this medicationand will be seeing Dr. Alexis -continue followup with the pain clinicFollow up:Followup:. (Follow up)AllComments:Generally patient is doing well. He had a recent exam with Dr. bañuelos who felt he should return in 6 months and no further evaluation was indicated. He is followed by the pain clinic and has been taken off opioids for his chronic low back discomfort and currently now is taking tramadol. Since he started this he has had some problems with urinary frequency and will be seeing Dr. Alexis tomorrow. Patient has been taking bisoprolol for hypertension and his blood pressure is well-controlled. Also continues on Lyrica for his chronic pain. He has regular eye examinations. No recent problems with respiratory illness. He will return in 2-3 months we will repeat lab work at that time. His last lab work inJanuary of 2019 showed a acceptable hemoglobin A1c with good control of his diabetes Functional Status Description No Information Available Mental Status Description No Information Available Referrals Refer to Reason for Referral Status Appt Date Mariella Alexander evaluate and treat back pain Scheduled [address] [facility] [address] [phone] [facility] Gait & Balance Training jw Scheduled [address] [place] [address],N.. [phone]
[2019-10-15 11:04] LABS: ABS Lymphocytes 1.1 10^3/ul (1.0-4.8); ABS Monocytes 0.9 10^3/ul (0-0.8); ABS Neutrophils 7.2 10^3/ul (1.5-7.7); Eosinophil % 0.1 %; Hematocrit 32 % (42-52); Hemoglobin 10.3 g/dL (14.0-18.0); Lymphocyte % 11.8 %; Mean Corpuscular HGB Conc 33 g/dL (31-36); Mean Corpuscular Hemoglobin 27 pg (27-31); Mean Corpuscular Volume 83 fL (80-94); Mean Platelet Volume 7.3 fL (7.4-10.4); Nucleated Red Blood Cells % 0.1; Platelet Count 165 10^3/uL (150-450); Red Cell Distribution Width 16 % (10-15); White Blood Count 9.2 10^3/uL (3.5-10.8)
[2019-10-15 11:27] LABS: Albumin 3.9 g/dL (3.2-5.2); Albumin/Globulin Ratio 1.1 (1-3); BUN/Creatinine Ratio 24.4 (8-20); C Reactive Protein 125.14 mg/L (<8.01); Calcium 9.9 mg/dL (8.6-10.3); EGFR African American 36.7 (>60); EGFR Non-African American 30.3 (>60); Globulin 3.4 g/dL (2-4); Potassium 4.4 mmol/L (3.5-5.0); Total Bilirubin 0.5 mg/dL (0.2-1.0); Total Protein 7.3 g/dL (6.4-8.9)
[2019-10-15] MEDS ORDERED: NS 0.9% 1000 ML** 1,000 ML IV ONE (12:34)
[2019-10-15 16:18] LABS: Urine Appearance Clear; Urine Bilirubin Negative (Negative); Urine Blood 1+ (Negative); Urine Color Yellow; Urine Glucose Negative (Negative); Urine Ketones Negative (Negative); Urine Nitrite Negative (Negative); Urine Protein Negative (Negative); Urine Urobilinogen Negative (Negative)
[2019-10-15 16:25] LABS: Urine Bacteria Absent (Absent); Urine Red Blood Cell Trace(0-2/hpf) (Absent); Urine White Blood Cell 1+(6-10/hpf) (Absent)
[2019-10-15 17:44] VITALS: BP 153/98
== END 2019-10-15 17:43 | disposition home or self-care (01) ==
LOC: ED 10:18
DX: R33.9 Retention of urine, unspecified (principal); L03.90 Cellulitis, unspecified; M79.605 Pain in left leg; I73.9 Peripheral vascular disease, unspecified; I25.10 Atherosclerotic heart disease of native coronary artery without angina pectoris; E78.00 Pure hypercholesterolemia, unspecified; I10 Essential (primary) hypertension; Z95.0 Presence of cardiac pacemaker; Z79.82 Long term (current) use of aspirin; Z86.79 Personal history of other diseases of the circulatory system; Z88.0 Allergy status to penicillin; Z95.5 Presence of coronary angioplasty implant and graft; Z79.4 Long term (current) use of insulin; Z79.899 Other long term (current) drug therapy; Z85.118 Personal history of other malignant neoplasm of bronchus and lung; Z87.891 Personal history of nicotine dependence; Z86.14 Personal history of Methicillin resistant Staphylococcus aureus infection
CPT/HCPCS: 36415; 80053; 81003; 81015; 85025; 86140; 87040; 87086; 96361; 96365; 99284; J0690

== ENCOUNTER 2020-08-16 08:23 | Inpatient (IN) ==
[2020-08-16 09:49] LABS: ABS Eosinophils 0.2 10^3/ul (0-0.6); ABS Lymphocytes 1.1 10^3/ul (1.0-4.8); ABS Monocytes 0.5 10^3/ul (0-0.8); ABS Neutrophils 4.1 10^3/ul (1.5-7.7); Eosinophil % 2.8 %; Hematocrit 28 % (42-52); Lymphocyte % 18.3 %; Mean Corpuscular HGB Conc 32 g/dL (31-36); Mean Corpuscular Hemoglobin 28 pg (27-31); Mean Corpuscular Volume 86 fL (80-94); Mean Platelet Volume 7.6 fL (7.4-10.4); Platelet Count 128 10^3/uL (150-450); Red Blood Count 3.24 10^6 /uL (4.18-5.48); Red Cell Distribution Width 14 % (10-15); White Blood Count 5.9 10^3/uL (3.5-10.8)
[2020-08-16 10:08] LABS: ALT 9 U/L (7-52); AST 16 U/L (13-39); Albumin 3.6 g/dL (3.2-5.2); Albumin/Globulin Ratio 1.1 (1-3); Alkaline Phosphatase 59 U/L (34-104); Anion Gap 4 mmol/L (2-11); BUN/Creatinine Ratio 29.3 (8-20); Blood Urea Nitrogen 55 mg/dL (6-24); CO2 Carbon Dioxide 36 mmol/L (22-32); Calcium 9.3 mg/dL (8.6-10.3); Chloride 101 mmol/L (101-111); EGFR African American 43.1 (>60); EGFR Non-African American 35.7 (>60); Globulin 3.3 g/dL (2-4); Glucose 117 mg/dL (70-100); Magnesium 1.9 mg/dL (1.9-2.7); Potassium 4.6 mmol/L (3.5-5.0); Sodium 141 mmol/L (135-145); Total Protein 6.9 g/dL (6.4-8.9); Troponin I 0.01 ng/mL (<0.03)
[2020-08-16 10:09] LABS: Alcohol, S < 10 mg/dL (<10); LDH 148 U/L (140-271)
[2020-08-16 10:16] LABS: INR 1.1 (0.82-1.09)
[2020-08-16] MEDS ORDERED: Piperacillin/Tazobac ADVAN 3.375 GM in NS 0.9% 100 ml BAG 100 ML IVPB ONE (10:20)
[2020-08-16 10:21] LABS: TSH Ultra Thyroid Stim Horm 3.83 mcIU/mL (0.34-5.60)
[2020-08-16 10:27] LABS: Ferritin 46.2 ng/mL (24-336)
[2020-08-16] MEDS ORDERED: Piperacillin/Tazobac 3.375 GM BAG ONE (10:27)
[2020-08-16 10:28] LABS: Urine Appearance Cloudy; Urine Bilirubin Negative (Negative); Urine Blood 1+ (Negative); Urine Color Yellow; Urine Glucose Negative (Negative); Urine Ketones Negative (Negative); Urine Nitrite Negative (Negative); Urine Protein Negative (Negative); Urine Specific Gravity 1.013 (1.010-1.030); Urine Urobilinogen Negative (Negative)
[2020-08-16 10:37] LABS: Urine Bacteria 1+ (Absent); Urine Red Blood Cell 2+(6-10/hpf) (Absent); Urine White Blood Cell 3+(>20/hpf) (Absent)
[2020-08-16 10:39] LABS: Influenza A Molecular Negative (Negative); Influenza B Molecular Negative (Negative)
[2020-08-16] MEDS ORDERED: Vancomycin 1,750 MG in NS 0.9% 250 ml 250 ML IVPB ONE (11:00)
[2020-08-16] MEDS ORDERED: Dexamethasone IV 4 MG/ML VIAL 1 ml VIAL IV SLOW PU ONE (13:43)
[2020-08-16] MEDS ORDERED: Dextrose 50% Syringe 50 ml 25 GM/50 ML SYRINGE IV PUSH PRN (18:42)
[2020-08-16] MEDS ORDERED: Albuterol/Ipratropium NEB.SOL (2.5/0.5 MG) 3 ML NEB.SOLN INH PRN (18:44)
[2020-08-16] MEDS ORDERED: Furosemide 40 mg/4 ml IV VIAL IV SLOW PU ONE (18:45)
[2020-08-16] MEDS ORDERED: Azithromycin 500 mg/250 ml NS 500 MG/250 ML BAG IVPB SCH (19:00)
[2020-08-16] MEDS: methylPREDNISolone SOD 40 mg/ml 1 ml VIAL IV SCH (19:28)
[2020-08-16] MEDS: Insulin GLARGINE 100 un/ml 10 ml VIAL SUBCUT SCH (21:30)
[2020-08-16] MEDS: Heparin 5000 UNITS/ML 1 mL VIAL SUBCUT SCH (21:30)
[2020-08-17 03:51] LABS: ABS Lymphocytes 0.6 10^3/ul (1.0-4.8); ABS Monocytes 0.1 10^3/ul (0-0.8); ABS Neutrophils 6.4 10^3/ul (1.5-7.7); Eosinophil % 0.1 %; Hematocrit 29 % (42-52); Hemoglobin 9.5 g/dL (14.0-18.0); Lymphocyte % 8.3 %; Mean Corpuscular HGB Conc 33 g/dL (31-36); Mean Corpuscular Hemoglobin 28 pg (27-31); Mean Corpuscular Volume 84 fL (80-94); Mean Platelet Volume 7.7 fL (7.4-10.4); Platelet Count 145 10^3/uL (150-450); Red Blood Count 3.43 10^6 /uL (4.18-5.48); Red Cell Distribution Width 15 % (10-15); White Blood Count 7.2 10^3/uL (3.5-10.8)
[2020-08-17 04:05] LABS: Albumin 3.6 g/dL (3.2-5.2); BUN/Creatinine Ratio 29.1 (8-20); Calcium 9.6 mg/dL (8.6-10.3); EGFR African American 47.8 (>60); EGFR Non-African American 39.5 (>60); Globulin 3.6 g/dL (2-4); Magnesium 1.8 mg/dL (1.9-2.7); Phosphorus 1.6 mg/dL (2.5-5.0); Total Bilirubin 0.3 mg/dL (0.2-1.0); Total Protein 7.2 g/dL (6.4-8.9)
[2020-08-17 04:06] LABS: Potassium 5.1 mmol/L (3.5-5.0)
[2020-08-17] MEDS ORDERED: Magnesium Sulfate 2 gm BAG 2 GM/50 ML BAG IVPB ONE (07:57)
[2020-08-17] MEDS: Heparin 5000 UNITS/ML 1 mL VIAL SUBCUT SCH ×2 (08:03→22:44)
[2020-08-17] MEDS: methylPREDNISolone SOD 40 mg/ml 1 ml VIAL IV SCH ×2 (08:03→20:32)
[2020-08-17] MEDS ORDERED: Remdesivir 100 mg Vial 200 MG in NS 0.9% 250 ml 210 ML IV ONE (08:04)
[2020-08-17] MEDS: Potassium & Sodium Phos 250 mg = 1 PACKET PO SCH ×2 (09:38→20:32)
[2020-08-17] MEDS: Albuterol HFA INHALER 8 gm MDI INH SCH ×4 (11:00→22:45)
[2020-08-17] MEDS: Insulin GLARGINE 100 un/ml 10 ml VIAL SUBCUT SCH (17:54)
[2020-08-17] MEDS ORDERED: Enoxaparin 40 MG/0.4 ML SYR SUBCUT SCH (19:00)
[2020-08-17] MEDS: Azithromycin 500 mg/250 ml NS 500 MG/250 ML BAG IVPB SCH (20:32)
[2020-08-18] MEDS: Heparin 5000 UNITS/ML 1 mL VIAL SUBCUT SCH ×3 (05:14→22:11)
[2020-08-18] MEDS: Albuterol HFA INHALER 8 gm MDI INH SCH ×6 (05:15→22:43)
[2020-08-18 06:06] LABS: Hematocrit 27 % (42-52); Mean Corpuscular HGB Conc 33 g/dL (31-36); Mean Corpuscular Hemoglobin 28 pg (27-31); Mean Corpuscular Volume 85 fL (80-94); Mean Platelet Volume 7.8 fL (7.4-10.4); Platelet Count 138 10^3/uL (150-450); Red Blood Count 3.23 10^6 /uL (4.18-5.48); Red Cell Distribution Width 15 % (10-15); White Blood Count 6.1 10^3/uL (3.5-10.8)
[2020-08-18 06:20] LABS: BUN/Creatinine Ratio 26.7 (8-20); Calcium 9.3 mg/dL (8.6-10.3); EGFR African American 50.2 (>60); EGFR Non-African American 41.4 (>60)
[2020-08-18 06:31] LABS: Potassium 5.2 mmol/L (3.5-5.0)
[2020-08-18] MEDS ORDERED: Perflutren Lipid Microsphere 3 ML VIAL ONE ×2 (07:34→12:24)
[2020-08-18] MEDS: Potassium & Sodium Phos 250 mg = 1 PACKET PO SCH (10:18)
[2020-08-18] MEDS: methylPREDNISolone SOD 40 mg/ml 1 ml VIAL IV SCH ×2 (10:33→20:09)
[2020-08-18] MEDS: cefTRIAXone 1 gm/50 mL NS BAG 1 GM/50 ML BAG IVPB SCH ×2 (11:04→21:33)
[2020-08-18] MEDS: Remdesivir 100 mg Vial 100 MG in NS 0.9% 250 ml 230 ML IV SCH (11:04)
[2020-08-18] MEDS ORDERED: Albuterol/Ipratropium NEB.SOL (2.5/0.5 MG) 3 ML NEB.SOLN INH STA (14:36)
[2020-08-18] MEDS: Insulin GLARGINE 100 un/ml 10 ml VIAL SUBCUT SCH (18:39)
[2020-08-18] MEDS: SPIRIVA Respimat (tiotropium) 2.5 mcg/inh Inhaler INH SCH (19:10)
[2020-08-18] MEDS: Azithromycin 500 mg/250 ml NS 500 MG/250 ML BAG IVPB SCH (20:09)
[2020-08-19] MEDS: Albuterol HFA INHALER 8 gm MDI INH SCH ×5 (03:21→20:28)
[2020-08-19] MEDS: Heparin 5000 UNITS/ML 1 mL VIAL SUBCUT SCH ×3 (05:13→21:27)
[2020-08-19 06:10] LABS: Hematocrit 31 % (42-52); Hemoglobin 10.2 g/dL (14.0-18.0); Mean Corpuscular HGB Conc 33 g/dL (31-36); Mean Corpuscular Hemoglobin 28 pg (27-31); Mean Corpuscular Volume 84 fL (80-94); Mean Platelet Volume 7.7 fL (7.4-10.4); Platelet Count 163 10^3/uL (150-450); Red Blood Count 3.67 10^6 /uL (4.18-5.48); Red Cell Distribution Width 15 % (10-15); White Blood Count 7.1 10^3/uL (3.5-10.8)
[2020-08-19 06:25] LABS: Albumin 3.8 g/dL (3.2-5.2); Calcium 9.4 mg/dL (8.6-10.3); Potassium 4.9 mmol/L (3.5-5.0); Total Bilirubin 0.3 mg/dL (0.2-1.0)
[2020-08-19 06:31] LABS: Albumin/Globulin Ratio 1.1 (1-3); BUN/Creatinine Ratio 25.8 (8-20); EGFR African American 53.9 (>60); EGFR Non-African American 44.5 (>60); Globulin 3.5 g/dL (2-4); Total Protein 7.3 g/dL (6.4-8.9)
[2020-08-19 08:38] LABS: Magnesium 1.9 mg/dL (1.9-2.7)
[2020-08-19 08:44] LABS: Phosphorus 4.1 mg/dL (2.5-5.0)
[2020-08-19] MEDS: methylPREDNISolone SOD 40 mg/ml 1 ml VIAL IV SCH ×2 (08:54→21:24)
[2020-08-19] MEDS: SPIRIVA Respimat (tiotropium) 2.5 mcg/inh Inhaler INH SCH (09:12)
[2020-08-19] MEDS: cefTRIAXone 1 gm/50 mL NS BAG 1 GM/50 ML BAG IVPB SCH (09:14)
[2020-08-19] MEDS: Remdesivir 100 mg Vial 100 MG in NS 0.9% 250 ml 230 ML IV SCH (09:16)
[2020-08-19] MEDS: Insulin GLARGINE 100 un/ml 10 ml VIAL SUBCUT SCH (18:01)
[2020-08-19] MEDS: Azithromycin 500 mg/250 ml NS 500 MG/250 ML BAG IVPB SCH (22:28)
[2020-08-20] MEDS: cefTRIAXone 1 gm/50 mL NS BAG 1 GM/50 ML BAG IVPB SCH ×3 (00:03→21:46)
[2020-08-20] MEDS: Albuterol HFA INHALER 8 gm MDI INH SCH ×4 (03:49→21:18)
[2020-08-20] MEDS: Heparin 5000 UNITS/ML 1 mL VIAL SUBCUT SCH (05:19)
[2020-08-20 07:08] LABS: Hematocrit 32 % (42-52); Hemoglobin 10.4 g/dL (14.0-18.0); Mean Corpuscular HGB Conc 33 g/dL (31-36); Mean Corpuscular Hemoglobin 28 pg (27-31); Mean Corpuscular Volume 84 fL (80-94); Mean Platelet Volume 7.9 fL (7.4-10.4); Platelet Count 166 10^3/uL (150-450); Red Blood Count 3.76 10^6 /uL (4.18-5.48); Red Cell Distribution Width 14 % (10-15); White Blood Count 7.2 10^3/uL (3.5-10.8)
[2020-08-20 07:24] LABS: Albumin 3.6 g/dL (3.2-5.2); Albumin/Globulin Ratio 1.1 (1-3); BUN/Creatinine Ratio 25.3 (8-20); Calcium 9.2 mg/dL (8.6-10.3); EGFR Non-African American 46.3 (>60); Globulin 3.4 g/dL (2-4); Total Bilirubin 0.3 mg/dL (0.2-1.0)
[2020-08-20] MEDS: SPIRIVA Respimat (tiotropium) 2.5 mcg/inh Inhaler INH SCH (09:38)
[2020-08-20] MEDS: Enoxaparin 40 MG/0.4 ML SYR SUBCUT SCH (09:47)
[2020-08-20] MEDS: methylPREDNISolone SOD 40 mg/ml 1 ml VIAL IV SCH ×2 (09:48→20:18)
[2020-08-20] MEDS: Remdesivir 100 mg Vial 100 MG in NS 0.9% 250 ml 230 ML IV SCH (12:15)
[2020-08-20] MEDS ORDERED: Budesonide/Formote 160/4.5(NF) MDI INH SCH (15:00)
[2020-08-20] MEDS: Mometasone/Formoter 200/5 MDI INH SCH ×2 (15:13→21:19)
[2020-08-20] MEDS: Aspirin EC 81 mg TAB.EC (enteric coated) PO SCH (15:56)
[2020-08-20] MEDS: Insulin GLARGINE 100 un/ml 10 ml VIAL SUBCUT SCH (17:50)
[2020-08-20] MEDS: Azithromycin 500 mg/250 ml NS 500 MG/250 ML BAG IVPB SCH (20:25)
[2020-08-21] MEDS: Albuterol HFA INHALER 8 gm MDI INH SCH ×4 (01:00→19:24)
[2020-08-21 07:50] LABS: Hematocrit 35 % (42-52); Hemoglobin 11.4 g/dL (14.0-18.0); Mean Corpuscular HGB Conc 33 g/dL (31-36); Mean Corpuscular Hemoglobin 28 pg (27-31); Mean Corpuscular Volume 84 fL (80-94); Mean Platelet Volume 7.9 fL (7.4-10.4); Platelet Count 161 10^3/uL (150-450); Red Blood Count 4.13 10^6 /uL (4.18-5.48); Red Cell Distribution Width 15 % (10-15); White Blood Count 6.8 10^3/uL (3.5-10.8)
[2020-08-21 08:02] LABS: Albumin 3.7 g/dL (3.2-5.2); Albumin/Globulin Ratio 1.1 (1-3); BUN/Creatinine Ratio 27.8 (8-20); Calcium 9.4 mg/dL (8.6-10.3); EGFR African American 51.2 (>60); EGFR Non-African American 42.3 (>60); Globulin 3.5 g/dL (2-4); Magnesium 1.9 mg/dL (1.9-2.7); Total Bilirubin 0.3 mg/dL (0.2-1.0); Total Protein 7.2 g/dL (6.4-8.9)
[2020-08-21] MEDS: SPIRIVA Respimat (tiotropium) 2.5 mcg/inh Inhaler INH SCH (08:20)
[2020-08-21] MEDS: Mometasone/Formoter 200/5 MDI INH SCH ×2 (08:21→19:23)
[2020-08-21] MEDS: cefTRIAXone 1 gm/50 mL NS BAG 1 GM/50 ML BAG IVPB SCH (09:28)
[2020-08-21] MEDS: Enoxaparin 40 MG/0.4 ML SYR SUBCUT SCH (09:34)
[2020-08-21] MEDS: Aspirin EC 81 mg TAB.EC (enteric coated) PO SCH (09:37)
[2020-08-21] MEDS: Remdesivir 100 mg Vial 100 MG in NS 0.9% 250 ml 230 ML IV SCH (10:26)
[2020-08-21 17:41] LABS: Glucose Confirmatory 422 mg/dL (70-100)
[2020-08-21] MEDS: Insulin GLARGINE 100 un/ml 10 ml VIAL SUBCUT SCH (18:30)
[2020-08-21 21:26] LABS: Glucose Confirmatory 429 mg/dL (70-100)
[2020-08-21] MEDS ORDERED: Dextrose 50% Syringe 50 ml 25 GM/50 ML SYRINGE IV PUSH PRN (21:33)
[2020-08-22] MEDS: Albuterol HFA INHALER 8 gm MDI INH SCH ×3 (01:36→12:55)
[2020-08-22] MEDS: SPIRIVA Respimat (tiotropium) 2.5 mcg/inh Inhaler INH SCH (08:23)
[2020-08-22] MEDS: Mometasone/Formoter 200/5 MDI INH SCH (08:23)
[2020-08-22] MEDS: Enoxaparin 40 MG/0.4 ML SYR SUBCUT SCH (09:52)
[2020-08-22] MEDS: Aspirin EC 81 mg TAB.EC (enteric coated) PO SCH (09:53)
[2020-08-22 12:42] VITALS: BP 127/57
[2020-08-22] MEDS ORDERED: Insulin GLARGINE 100 un/ml 10 ml VIAL SUBCUT SCH (18:00)
== END 2020-08-22 12:57 | disposition swing bed (61) | DRG 177 ==
LOC: ED 08:23 → ICU 15:56 → MED 08-19 16:28
PROVIDERS: ADMIT Student in an Organized Health Care Education/Training Program; ATTEND Hospitalist

== ENCOUNTER 2020-08-22 13:02 | Inpatient (IN) ==
[2020-08-22] MEDS ORDERED: Albuterol HFA INHALER 8 gm MDI INH PRN (14:44)
[2020-08-22] MEDS ORDERED: Dextrose 50% Syringe 50 ml 25 GM/50 ML SYRINGE IV PUSH PRN (15:03)
[2020-08-22] MEDS ORDERED: Albuterol/Ipratropium NEB.SOL (2.5/0.5 MG) 3 ML NEB.SOLN INH PRN (15:08)
[2020-08-22] MEDS: Insulin GLARGINE 100 un/ml 10 ml VIAL SUBCUT SCH (17:44)
[2020-08-23] MEDS: Mometasone/Formoter 200/5 MDI INH SCH ×3 (06:41→20:49)
[2020-08-23] MEDS: SPIRIVA Respimat (tiotropium) 2.5 mcg/inh Inhaler INH SCH (07:38)
[2020-08-23] MEDS: Enoxaparin 40 MG/0.4 ML SYR SUBCUT SCH (08:43)
[2020-08-23] MEDS: Aspirin EC 81 mg TAB.EC (enteric coated) PO SCH (08:46)
[2020-08-23] MEDS: Insulin GLARGINE 100 un/ml 10 ml VIAL SUBCUT SCH (17:30)
[2020-08-24] MEDS: SPIRIVA Respimat (tiotropium) 2.5 mcg/inh Inhaler INH SCH (07:19)
[2020-08-24] MEDS: Mometasone/Formoter 200/5 MDI INH SCH ×2 (07:19→20:00)
[2020-08-24] MEDS: Enoxaparin 40 MG/0.4 ML SYR SUBCUT SCH (08:31)
[2020-08-24] MEDS: Aspirin EC 81 mg TAB.EC (enteric coated) PO SCH (08:35)
[2020-08-24] MEDS: Insulin GLARGINE 100 un/ml 10 ml VIAL SUBCUT SCH (17:52)
[2020-08-25] MEDS: Mometasone/Formoter 200/5 MDI INH SCH ×2 (07:54→20:29)
[2020-08-25] MEDS: SPIRIVA Respimat (tiotropium) 2.5 mcg/inh Inhaler INH SCH (07:54)
[2020-08-25] MEDS: Aspirin EC 81 mg TAB.EC (enteric coated) PO SCH (08:56)
[2020-08-25] MEDS: Enoxaparin 40 MG/0.4 ML SYR SUBCUT SCH (09:00)
[2020-08-25] MEDS: Insulin GLARGINE 100 un/ml 10 ml VIAL SUBCUT SCH (18:04)
[2020-08-26] MEDS: SPIRIVA Respimat (tiotropium) 2.5 mcg/inh Inhaler INH SCH (08:27)
[2020-08-26] MEDS: Mometasone/Formoter 200/5 MDI INH SCH ×2 (08:27→22:12)
[2020-08-26] MEDS: Aspirin EC 81 mg TAB.EC (enteric coated) PO SCH (09:39)
[2020-08-26] MEDS: Enoxaparin 40 MG/0.4 ML SYR SUBCUT SCH (09:40)
[2020-08-26] MEDS: Insulin GLARGINE 100 un/ml 10 ml VIAL SUBCUT SCH (17:36)
[2020-08-27 07:44] VITALS: BP 133/56
[2020-08-27] MEDS: Mometasone/Formoter 200/5 MDI INH SCH (09:23)
[2020-08-27] MEDS: SPIRIVA Respimat (tiotropium) 2.5 mcg/inh Inhaler INH SCH (09:23)
[2020-08-27] MEDS: Aspirin EC 81 mg TAB.EC (enteric coated) PO SCH (10:49)
[2020-08-27] MEDS: Enoxaparin 40 MG/0.4 ML SYR SUBCUT SCH (10:51)
== END 2020-08-27 15:00 | disposition home or self-care (01) | DRG 178 ==
LOC: MED 13:02
PROVIDERS: ADMIT Hospitalist; ATTEND Internal Medicine

== ENCOUNTER 2020-12-15 22:36 | Observation (INO) ==
[2020-12-15 23:51] LABS: ABS Eosinophils 0.2 10^3/ul (0-0.6); ABS Lymphocytes 1.1 10^3/ul (1.0-4.8); ABS Monocytes 0.5 10^3/ul (0-0.8); ABS Neutrophils 4.3 10^3/ul (1.5-7.7); Eosinophil % 2.6 %; Hematocrit 29 % (42-52); Hemoglobin 9.2 g/dL (14.0-18.0); Lymphocyte % 17.7 %; Mean Corpuscular HGB Conc 32 g/dL (31-36); Mean Corpuscular Hemoglobin 28 pg (27-31); Mean Corpuscular Volume 86 fL (80-94); Platelet Count 150 10^3/uL (150-450); Red Blood Count 3.33 10^6 /uL (4.18-5.48); Red Cell Distribution Width 15 % (10-15); White Blood Count 6.1 10^3/uL (3.5-10.8)
[2020-12-16 00:06] LABS: Albumin 3.4 g/dL (3.2-5.2); Calcium 9.6 mg/dL (8.6-10.3); EGFR African American 36.2 (>60); EGFR Non-African American 29.9 (>60); Globulin 3.4 g/dL (2-4); Total Bilirubin 0.2 mg/dL (0.2-1.0); Total Protein 6.8 g/dL (6.4-8.9)
[2020-12-16 00:08] LABS: Troponin I 0.01 ng/mL (<0.03)
[2020-12-16 00:10] LABS: Potassium 5.1 mmol/L (3.5-5.0)
[2020-12-16] MEDS ORDERED: Magnesium Hydroxide LIQ 30 ML UDC PO PRN (08:30)
[2020-12-16] MEDS ORDERED: Ondansetron 4 mg VIAL 2 MG/ML 2 ml VIAL IV PRN (08:30)
[2020-12-16] MEDS ORDERED: Albuterol 2.5mg/3 ml (0.083%) NEB.SOLN INH PRN (08:45)
[2020-12-16] MEDS ORDERED: Dextrose 50% Syringe 50 ml 25 GM/50 ML SYRINGE IV PUSH PRN (08:47)
[2020-12-16] MEDS: Mometasone/Formoter 200/5 MDI INH SCH (10:07)
[2020-12-16] MEDS: Aspirin EC 81 mg TAB.EC (enteric coated) PO SCH (11:37)
[2020-12-16] MEDS: Heparin 5000 UNITS/ML 1 mL VIAL SUBCUT SCH ×2 (12:24→21:14)
[2020-12-16 17:01] LABS: Urine Appearance Clear; Urine Bilirubin Negative (Negative); Urine Blood 2+ (Negative); Urine Color Yellow; Urine Glucose 1+(50 mg/dL) (Negative); Urine Ketones Negative (Negative); Urine Nitrite Negative (Negative); Urine Protein 2+(100 mg/dL) (Negative); Urine Specific Gravity 1.016 (1.002-1.030); Urine Urobilinogen Negative (Negative)
[2020-12-16 17:06] LABS: Urine Bacteria 1+ (Absent); Urine Red Blood Cell 3+(>10/hpf) (Absent); Urine White Blood Cell Trace(0-5/hpf) (Absent)
[2020-12-16] MEDS: Insulin GLARGINE 100 un/ml 10 ml VIAL SUBCUT SCH (21:15)
[2020-12-17] MEDS: Heparin 5000 UNITS/ML 1 mL VIAL SUBCUT SCH ×3 (05:58→21:03)
[2020-12-17 06:25] LABS: ABS Eosinophils 0.1 10^3/ul (0-0.6); ABS Lymphocytes 1.2 10^3/ul (1.0-4.8); ABS Monocytes 0.4 10^3/ul (0-0.8); ABS Neutrophils 4.1 10^3/ul (1.5-7.7); Eosinophil % 2.2 %; Hematocrit 30 % (42-52); Hemoglobin 9.5 g/dL (14.0-18.0); Lymphocyte % 19.8 %; Mean Corpuscular HGB Conc 32 g/dL (31-36); Mean Corpuscular Hemoglobin 28 pg (27-31); Mean Corpuscular Volume 86 fL (80-94); Mean Platelet Volume 7.9 fL (7.4-10.4); Platelet Count 153 10^3/uL (150-450); Red Blood Count 3.47 10^6 /uL (4.18-5.48); Red Cell Distribution Width 15 % (10-15); White Blood Count 5.8 10^3/uL (3.5-10.8)
[2020-12-17 07:01] LABS: Blood Urea Nitrogen 41 mg/dL (6-24); CO2 Carbon Dioxide 39 mmol/L (22-32); Calcium 9.8 mg/dL (8.6-10.3); Chloride 102 mmol/L (101-111); EGFR African American 45.9 (>60); Glucose 114 mg/dL (70-100); Potassium 4.6 mmol/L (3.5-5.0); Sodium 140 mmol/L (135-145)
[2020-12-17] MEDS: Cholecalciferol (VIT D3) 1,000 unit TAB PO SCH (09:04)
[2020-12-17] MEDS: Aspirin EC 81 mg TAB.EC (enteric coated) PO SCH (09:04)
[2020-12-17] MEDS: Mometasone/Formoter 200/5 MDI INH SCH (09:44)
[2020-12-17] MEDS: Multivitamins/Minerals TAB PO SCH (11:14)
[2020-12-17] MEDS: Insulin GLARGINE 100 un/ml 10 ml VIAL SUBCUT SCH (21:02)
[2020-12-18] MEDS: Heparin 5000 UNITS/ML 1 mL VIAL SUBCUT SCH ×3 (06:19→20:14)
[2020-12-18] MEDS: Aspirin EC 81 mg TAB.EC (enteric coated) PO SCH (09:15)
[2020-12-18] MEDS: Cholecalciferol (VIT D3) 1,000 unit TAB PO SCH (09:15)
[2020-12-18] MEDS: Multivitamins/Minerals TAB PO SCH (09:15)
[2020-12-18] MEDS: Mometasone/Formoter 200/5 MDI INH SCH (09:23)
[2020-12-18] MEDS: SPIRIVA Respimat (tiotropium) 2.5 mcg/inh Inhaler INH SCH (09:23)
[2020-12-18] MEDS ORDERED: COVID-19 VACCINE, MRNA(MODERNA)/PF 100 MCG/0.5 ML IM ONE (14:00)
[2020-12-18] MEDS: Insulin GLARGINE 100 un/ml 10 ml VIAL SUBCUT SCH (20:14)
[2020-12-19] MEDS: Heparin 5000 UNITS/ML 1 mL VIAL SUBCUT SCH ×2 (06:13→13:23)
[2020-12-19 06:42] LABS: ABS Eosinophils 0.1 10^3/ul (0-0.6); ABS Monocytes 0.5 10^3/ul (0-0.8); ABS Neutrophils 4.1 10^3/ul (1.5-7.7); Eosinophil % 1.8 %; Hematocrit 29 % (42-52); Hemoglobin 9.6 g/dL (14.0-18.0); Lymphocyte % 17.7 %; Mean Corpuscular HGB Conc 33 g/dL (31-36); Mean Corpuscular Hemoglobin 28 pg (27-31); Mean Corpuscular Volume 84 fL (80-94); Mean Platelet Volume 7.7 fL (7.4-10.4); Platelet Count 144 10^3/uL (150-450); Red Blood Count 3.46 10^6 /uL (4.18-5.48); Red Cell Distribution Width 15 % (10-15); White Blood Count 5.8 10^3/uL (3.5-10.8)
[2020-12-19 07:01] LABS: Calcium 9.6 mg/dL (8.6-10.3); EGFR African American 43.1 (>60); EGFR Non-African American 35.7 (>60); Potassium 4.2 mmol/L (3.5-5.0)
[2020-12-19] MEDS: Mometasone/Formoter 200/5 MDI INH SCH (07:07)
[2020-12-19] MEDS: SPIRIVA Respimat (tiotropium) 2.5 mcg/inh Inhaler INH SCH (07:09)
[2020-12-19] MEDS: Cholecalciferol (VIT D3) 1,000 unit TAB PO SCH (09:55)
[2020-12-19] MEDS: Multivitamins/Minerals TAB PO SCH (09:56)
[2020-12-19] MEDS: Aspirin EC 81 mg TAB.EC (enteric coated) PO SCH (09:56)
[2020-12-19 12:56] VITALS: BP 148/55
== END 2020-12-19 14:10 ==
LOC: MED 22:36 → ED 22:36 → MED 12-16 09:31
PROVIDERS: ADMIT Hospitalist; ATTEND Student in an Organized Health Care Education/Training Program

== ENCOUNTER 2021-02-14 18:54 | Inpatient (IN) ==
[2021-02-14 20:30] LABS: ABS Basophils 0.1 10^3/ul (0-0.2); ABS Lymphocytes 0.7 10^3/ul (1.0-4.8); ABS Monocytes 0.7 10^3/ul (0-0.8); ABS Neutrophils 9.8 10^3/ul (1.5-7.7); Eosinophil % 0.4 %; Hematocrit 30 % (42-52); Hemoglobin 9.9 g/dL (14.0-18.0); Lymphocyte % 6.6 %; Mean Corpuscular HGB Conc 34 g/dL (31-36); Mean Corpuscular Hemoglobin 28 pg (27-31); Mean Corpuscular Volume 84 fL (80-94); Mean Platelet Volume 8.2 fL (7.4-10.4); Platelet Count 186 10^3/uL (150-450); Red Blood Count 3.52 10^6 /uL (4.18-5.48); Red Cell Distribution Width 15 % (10-15); White Blood Count 11.3 10^3/uL (3.5-10.8)
[2021-02-14 20:33] LABS: Urine Appearance Cloudy; Urine Bilirubin Negative (Negative); Urine Blood 1+ (Negative); Urine Color Yellow; Urine Glucose Negative (Negative); Urine Ketones Negative (Negative); Urine Nitrite Negative (Negative); Urine Protein 1+(30 mg/dL) (Negative); Urine Specific Gravity 1.017 (1.002-1.030); Urine Urobilinogen Negative (Negative)
[2021-02-14 20:46] LABS: ALT 8 U/L (7-52); AST 13 U/L (13-39); Albumin 3.8 g/dL (3.2-5.2); Albumin/Globulin Ratio 1.1 (1-3); Alkaline Phosphatase 52 U/L (35-149); Anion Gap 5 mmol/L (2-11); Blood Urea Nitrogen 57 mg/dL (6-24); C Reactive Protein 51.13 mg/L (<8.01); CO2 Carbon Dioxide 35 mmol/L (22-32); Chloride 98 mmol/L (101-111); EGFR Non-African American 29.7 (>60); Globulin 3.4 g/dL (2-4); Glucose 119 mg/dL (70-100); Potassium 4.7 mmol/L (3.5-5.0); Sodium 138 mmol/L (135-145); Total Protein 7.2 g/dL (6.4-8.9)
[2021-02-14 20:55] LABS: Activated Partial Thrombo Time 32.7 seconds (26.0-38.0); INR 1.21 (0.86-1.15); Troponin I 0.03 ng/mL (<0.03)
[2021-02-14 20:57] LABS: Urine Bacteria 1+ (Absent); Urine Red Blood Cell 2+(6-10/hpf) (Absent); Urine White Blood Cell 3+(>20/hpf) (Absent); Urine Yeast Present (Absent)
[2021-02-14] MEDS ORDERED: Piperacillin/Tazobac ADVAN 3.375 GM in NS 0.9% 100 ml BAG 100 ML IV ONE (21:08)
[2021-02-14] MEDS ORDERED: Azithromycin 500 mg/250 ml NS 500 MG/250 ML BAG IVPB ONE (23:42)
[2021-02-15] MEDS ORDERED: Al Hydrox/Mg Hydrox/Simet LIQ 30 ML UDC PO PRN (00:29)
[2021-02-15] MEDS ORDERED: Ondansetron 4 mg VIAL 2 MG/ML 2 ml VIAL IV PRN (00:29)
[2021-02-15] MEDS ORDERED: Albuterol HFA INHALER 8 gm MDI INH PRN (00:37)
[2021-02-15] MEDS ORDERED: Dextrose 50% Syringe 50 ml 25 GM/50 ML SYRINGE IV PUSH PRN (00:42)
[2021-02-15] MEDS ORDERED: Zosyn per Pharmacy NOTE FOLLOW UP SCH (01:00)
[2021-02-15 01:08] LABS: Magnesium 2.1 mg/dL (1.9-2.7)
[2021-02-15] MEDS: ZOSYN 3.375 GM Q8H per EXTENDED INFUSION IV SCH ×3 (03:50→17:37)
[2021-02-15] MEDS: Heparin 5000 UNITS/ML 1 mL VIAL SUBCUT SCH ×3 (04:54→20:50)
[2021-02-15] MEDS: Mometasone/Formoter 200/5 MDI INH SCH ×2 (07:45→20:02)
[2021-02-15] MEDS: SPIRIVA Respimat (tiotropium) 2.5 mcg/inh Inhaler INH SCH (07:46)
[2021-02-15] MEDS: Insulin GLARGINE 100 un/ml 10 ml VIAL SUBCUT SCH (20:47)
[2021-02-16] MEDS: ZOSYN 3.375 GM Q8H per EXTENDED INFUSION IV SCH ×3 (01:22→17:20)
[2021-02-16] MEDS: Heparin 5000 UNITS/ML 1 mL VIAL SUBCUT SCH (06:01)
[2021-02-16 08:26] LABS: ABS Eosinophils 0.2 10^3/ul (0-0.6); ABS Lymphocytes 1.3 10^3/ul (1.0-4.8); ABS Monocytes 0.8 10^3/ul (0-0.8); ABS Neutrophils 5.8 10^3/ul (1.5-7.7); Hematocrit 33 % (42-52); Hemoglobin 10.6 g/dL (14.0-18.0); Lymphocyte % 16.3 %; Mean Corpuscular HGB Conc 32 g/dL (31-36); Mean Corpuscular Hemoglobin 28 pg (27-31); Mean Corpuscular Volume 87 fL (80-94); Mean Platelet Volume 8.2 fL (7.4-10.4); Nucleated Red Blood Cells % 0.1; Platelet Count 159 10^3/uL (150-450); Red Blood Count 3.75 10^6 /uL (4.18-5.48); Red Cell Distribution Width 16 % (10-15); White Blood Count 8.1 10^3/uL (3.5-10.8)
[2021-02-16] MEDS: SPIRIVA Respimat (tiotropium) 2.5 mcg/inh Inhaler INH SCH (09:17)
[2021-02-16] MEDS: Mometasone/Formoter 200/5 MDI INH SCH ×2 (09:17→19:38)
[2021-02-16 11:25] LABS: CO2 Carbon Dioxide 22 mmol/L (22-32); Calcium 9.6 mg/dL (8.6-10.3); Chloride 100 mmol/L (101-111); Sodium 140 mmol/L (135-145)
[2021-02-16 11:31] LABS: Blood Urea Nitrogen 50 mg/dL (6-24); EGFR African American 32.5 (>60); EGFR Non-African American 26.9 (>60); Glucose 122 mg/dL (70-100)
[2021-02-16 11:36] LABS: Anion Gap 18 mmol/L (2-11)
[2021-02-16] MEDS: Insulin GLARGINE 100 un/ml 10 ml VIAL SUBCUT SCH (22:18)
[2021-02-16] MEDS: Enoxaparin 40 MG/0.4 ML SYR SUBCUT SCH (22:19)
[2021-02-17] MEDS: ZOSYN 3.375 GM Q8H per EXTENDED INFUSION IV SCH ×3 (02:09→17:38)
[2021-02-17] MEDS: Mometasone/Formoter 200/5 MDI INH SCH ×2 (07:49→19:28)
[2021-02-17] MEDS: SPIRIVA Respimat (tiotropium) 2.5 mcg/inh Inhaler INH SCH (07:56)
[2021-02-17] MEDS ORDERED: Senna TAB 8.6 mg TAB PO PRN (09:26)
[2021-02-17] MEDS: Magnesium Hydroxide LIQ 30 ML UDC PO SCH ×2 (10:50→20:07)
[2021-02-17] MEDS: Enoxaparin 40 MG/0.4 ML SYR SUBCUT SCH (20:07)
[2021-02-17] MEDS: Insulin GLARGINE 100 un/ml 10 ml VIAL SUBCUT SCH (20:11)
[2021-02-17] MEDS ORDERED: Magnesium Hydroxide LIQ 30 ML UDC PO SCH (21:00)
[2021-02-18] MEDS: ZOSYN 3.375 GM Q8H per EXTENDED INFUSION IV SCH ×3 (03:02→18:06)
[2021-02-18 07:26] LABS: ABS Eosinophils 0.2 10^3/ul (0-0.6); ABS Lymphocytes 1.6 10^3/ul (1.0-4.8); ABS Monocytes 0.6 10^3/ul (0-0.8); ABS Neutrophils 4.3 10^3/ul (1.5-7.7); Eosinophil % 2.9 %; Hematocrit 33 % (42-52); Hemoglobin 10.8 g/dL (14.0-18.0); Lymphocyte % 23.9 %; Mean Corpuscular HGB Conc 33 g/dL (31-36); Mean Corpuscular Hemoglobin 28 pg (27-31); Mean Corpuscular Volume 85 fL (80-94); Mean Platelet Volume 7.8 fL (7.4-10.4); Platelet Count 200 10^3/uL (150-450); Red Blood Count 3.86 10^6 /uL (4.18-5.48); Red Cell Distribution Width 15 % (10-15); White Blood Count 6.7 10^3/uL (3.5-10.8)
[2021-02-18 07:36] LABS: Calcium 10.2 mg/dL (8.6-10.3); EGFR African American 34.5 (>60); EGFR Non-African American 28.5 (>60); Potassium 4.2 mmol/L (3.5-5.0)
[2021-02-18] MEDS: Mometasone/Formoter 200/5 MDI INH SCH ×2 (07:38→20:56)
[2021-02-18] MEDS: SPIRIVA Respimat (tiotropium) 2.5 mcg/inh Inhaler INH SCH (07:38)
[2021-02-18] MEDS: Magnesium Hydroxide LIQ 30 ML UDC PO SCH ×2 (08:36→20:40)
[2021-02-18] MEDS: Enoxaparin 40 MG/0.4 ML SYR SUBCUT SCH (20:34)
[2021-02-18] MEDS: Insulin GLARGINE 100 un/ml 10 ml VIAL SUBCUT SCH (20:34)
[2021-02-19] MEDS: ZOSYN 3.375 GM Q8H per EXTENDED INFUSION IV SCH ×3 (02:38→17:49)
[2021-02-19 05:48] LABS: Calcium 9.6 mg/dL (8.6-10.3); EGFR African American 35.1 (>60); Magnesium 2.5 mg/dL (1.9-2.7); Potassium 4.2 mmol/L (3.5-5.0)
[2021-02-19] MEDS: SPIRIVA Respimat (tiotropium) 2.5 mcg/inh Inhaler INH SCH (08:11)
[2021-02-19] MEDS: Mometasone/Formoter 200/5 MDI INH SCH ×2 (08:11→19:41)
[2021-02-19] MEDS: Magnesium Hydroxide LIQ 30 ML UDC PO SCH ×2 (08:48→20:05)
[2021-02-19] MEDS: Enoxaparin 40 MG/0.4 ML SYR SUBCUT SCH (19:59)
[2021-02-19] MEDS ORDERED: Insulin GLARGINE 100 un/ml 10 ml VIAL SUBCUT SCH (21:00)
[2021-02-20] MEDS: ZOSYN 3.375 GM Q8H per EXTENDED INFUSION IV SCH (02:35)
[2021-02-20] MEDS: SPIRIVA Respimat (tiotropium) 2.5 mcg/inh Inhaler INH SCH (07:17)
[2021-02-20] MEDS: Mometasone/Formoter 200/5 MDI INH SCH (07:17)
[2021-02-20] MEDS: Magnesium Hydroxide LIQ 30 ML UDC PO SCH (07:44)
[2021-02-20 08:27] VITALS: BP 141/64
[2021-02-20 08:51] LABS: Calcium 9.5 mg/dL (8.6-10.3); EGFR African American 36.2 (>60); EGFR Non-African American 29.9 (>60); Potassium 4.1 mmol/L (3.5-5.0)
== END 2021-02-20 10:30 | DRG 178 ==
LOC: ED 18:54 → MED 02-15 00:29
PROVIDERS: ADMIT Pediatrics; ATTEND Internal Medicine